=== PATIENT | female | born 1960 | race Caucasian/White ===

== ENCOUNTER 2016-06-25 10:48 | Outpatient (RCR) | payer MEDICARE, MEDICAID ==
--- OUTSIDE RECORDS SUMMARY | 2016-04-02 10:49 | XMS REPORT | Continuity of Care Document ---
Author Author [facility] Organization [facility] Address Unknown Phone Unavailable Care Team Providers Care Parts Lister Name Role Phone Lolly Mcgregor PCP [phone] Source Comments Some departments are not documenting in the electronic medical record. If you do not see the information that you expected, contact Release of Information in the Health Information Management department at [phone] for further assistance in locating additional records.[facility] Active Allergies and Adverse Reactions Allergen Noted Date Severity Reactions Comments Codeine 09/22/2013 NAUSEA AND VOMITING Enalaprilat 09/22/2013 SEE COMMENTS "throat swells up and it's not good" Haldol 09/22/2013 MENTAL STATUS CHANGES Current Medications Prescription Sig. Disp. Refills Start End Date Status Date rosuvastatin (CRESTOR) 10 Take 10 mg by mouth Active mg tablet daily. DOCOSAHEXANOIC ACID/EPA Take 1,200 mg by mouth Active (FISH OIL PO) twice daily. metFORMIN (GLUCOPHAGE) Take 1,000 mg by mouth Active 1,000 mg tablet twice daily with meals. aspirin 325 mg tablet Take 325 mg by mouth Active daily. losartan (COZAAR) 50 mg Take 50 mg by mouth Active tablet daily. metoprolol (LOPRESSOR) 25 Take 25 mg by mouth Active mg tablet daily. VITS Take by mouth. Active W-CA,FE,FA(<1MG) ( VITAMIN PO) INSULIN LISPRO (HUMALOG Inject into area(s) as Active PEN SC) directed. INSULIN DETEMIR (LEVEMIR Inject 34 Units into Active FLEXPEN SC) area(s) as directed at bedtime daily. 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 Social History Tobacco Use Types Packs/Day Years Used Date Current Every Day Smoker Cigarettes 1.5 Smokeless Tobacco: Never Used Comments: Smoking for 30 years Alcohol Use Drinks/Week oz/Week Comments No Last Filed Vital Signs Vital Sign Reading Time Taken Blood Pressure 144/67 09/22/2013 4:04 PM CDT Pulse 77 09/22/2013 4:19 PM CDT Temperature 36.7 C (98.1 F) 09/22/2013 2:30 PM CDT Respiratory Rate - - Height 1.753 m (5' 9") 09/22/2013 10:40 AM CDT Weight 82.6 kg (182 lb 1.6 oz) 09/22/2013 10:40 AM CDT Body Mass Index 26.88 09/22/2013 10:40 AM CDT Oxygen Saturation 97% 09/22/2013 4:19 PM CDT Plan of Care Health Maintenance Due Date Last Done Comments Physical (Comprehensive) 01/03/1967 Exam Pertussis Vaccine 01/03/1971 Tetanus Vaccine 01/03/1977 Cervical Cancer Screening 01/03/1981 Breast Cancer Screening 2000 Colorectal Cancer 01/03/2010 Screening Influenza Vaccine 02/15/2016 Results from Last 3 Months Not on file
[2016-04-02 11:35] LABS: BASOPHILS % (AUTO) 0 % (0-10); EOSINOPHILS # (AUTO) 0.1 10^3/uL (0.0-0.3); EOSINOPHILS % (AUTO) 1 % (0-10); LYMPHOCYTES # (AUTO) 1.4 X 10^3 (1.0-4.0); LYMPHOCYTES % (AUTO) 14 % (12-44); MEAN CORPUSCULAR HEMOGLOBIN 27 PG (25-34); MEAN CORPUSCULAR HGB CONC 32 G/DL (32-36); MEAN CORPUSCULAR VOLUME 86 FL (80-99); MEAN PLATELET VOLUME 9.8 FL (7.4-10.4); MONOCYTES # (AUTO) 0.6 X 10^3 (0.0-1.0); MONOCYTES % (AUTO) 6 % (0-12); NEUTROPHILS # (AUTO) 7.9 X 10^3 (1.8-7.8); NEUTROPHILS % (AUTO) 78 % (42-75); PLATELET COUNT 306 10^3/uL (130-400); RED BLOOD COUNT 4.12 10^6/uL (4.35-5.85); RED CELL DISTRIBUTION WIDTH 15.6 % (10.0-14.5); WHITE BLOOD COUNT 10.2 10^3/uL (4.3-11.0)
[2016-04-02 11:53] LABS: ALANINE AMINOTRANSFERASE 59 U/L (0-55); ANION GAP 9 MMOL/L (5-14); ASPARTATE AMINO TRANSFERASE 52 U/L (5-34); BILIRUBIN,TOTAL 0.5 MG/DL (0.1-1.0); BLOOD UREA NITROGEN 13 MG/DL (7-18); BUN/CREATININE RATIO 16; CALCIUM 9.5 MG/DL (8.5-10.1); CARBON DIOXIDE 25 MMOL/L (21-32); CHLORIDE 108 MMOL/L (98-107); CREATININE SERUM 0.83 MG/DL (0.60-1.30); GFR ESTIMATED > 60; GLUCOSE 171 MG/DL (70-105); POTASSIUM 4.3 MMOL/L (3.6-5.0); SODIUM 142 MMOL/L (135-145); TOTAL PROTEIN 6.7 G/DL (6.4-8.2)
--- NOTE | 2016-04-09 16:09 | Diagnostic Imaging Report ---
EXAMINATION: PA and lateral views of the chest. INDICATION: Head and neck cancer. COMPARISON: 08/19/2014. FINDINGS: The lungs appear clear. The heart size is normal. No effusion or pneumothorax. The mediastinum and parrish appear unremarkable. Sternotomy wires are seen. There is a left subclavian port with the tip at the upper SVC level. IMPRESSION: No acute process. Dictated by: Dictated on workstation # [id number]
[2016-05-16 11:29] LABS: BASOPHILS % (AUTO) 1 % (0-10); EOSINOPHILS # (AUTO) 0.2 10^3/uL (0.0-0.3); EOSINOPHILS % (AUTO) 2 % (0-10); LYMPHOCYTES # (AUTO) 1.6 X 10^3 (1.0-4.0); LYMPHOCYTES % (AUTO) 19 % (12-44); MEAN CORPUSCULAR HEMOGLOBIN 27 PG (25-34); MEAN CORPUSCULAR HGB CONC 32 G/DL (32-36); MEAN CORPUSCULAR VOLUME 84 FL (80-99); MEAN PLATELET VOLUME 9.7 FL (7.4-10.4); MONOCYTES # (AUTO) 0.5 X 10^3 (0.0-1.0); MONOCYTES % (AUTO) 7 % (0-12); NEUTROPHILS # (AUTO) 5.9 X 10^3 (1.8-7.8); NEUTROPHILS % (AUTO) 71 % (42-75); PLATELET COUNT 245 10^3/uL (130-400); RED BLOOD COUNT 4.44 10^6/uL (4.35-5.85); RED CELL DISTRIBUTION WIDTH 15.1 % (10.0-14.5); WHITE BLOOD COUNT 8.3 10^3/uL (4.3-11.0)
[2016-05-16 12:24] LABS: ALBUMIN 4.1 G/DL (3.2-4.5); BILIRUBIN,TOTAL 0.4 MG/DL (0.1-1.0); CALCIUM 9.8 MG/DL (8.5-10.1); CREATININE SERUM 1.02 MG/DL (0.60-1.30); POTASSIUM 4.4 MMOL/L (3.6-5.0)
[~2016-06-25 10:48] MED LIST: ALBU8.5H2 IH; ALPR0.25 PO; AMLO5TAB2 PO; ASP325TEC PO; ASP81CT PO; ASPI-808 PO; CEPH500C PO; FURO40TA4 PO; HYDR-3454 PO; INSU100C SQ; LEVE1U SQ; LEVO25TA PO; LEVO50TA6 PO; LOSA50TA2 PO; LOSA50TA6 PO; LOVA20TA2 PO; LOVA40TA2 PO; METF-380 PO; METO25TA PO; NCT21TD TOP; OMEG-109 PO; OMEG1CAP58 PO; OMEP20TA7 PO; OMEP40CA36 PO; POTA10TA10 PO; ROSU10TA12 PO; ROSU20TA14 PO; SENN1TAB76 PO; SULF1TAB35 PO; TRAM-21 PO
[2016-06-25 11:07] LABS: BASOPHILS % (AUTO) 0 % (0-10); EOSINOPHILS # (AUTO) 0.1 10^3/uL (0.0-0.3); EOSINOPHILS % (AUTO) 1 % (0-10); LYMPHOCYTES # (AUTO) 2.4 X 10^3 (1.0-4.0); LYMPHOCYTES % (AUTO) 21 % (12-44); MEAN CORPUSCULAR HEMOGLOBIN 26 PG (25-34); MEAN CORPUSCULAR HGB CONC 32 G/DL (32-36); MEAN CORPUSCULAR VOLUME 82 FL (80-99); MEAN PLATELET VOLUME 10.1 FL (7.4-10.4); MONOCYTES % (AUTO) 9 % (0-12); NEUTROPHILS # (AUTO) 8.2 X 10^3 (1.8-7.8); NEUTROPHILS % (AUTO) 69 % (42-75); PLATELET COUNT 256 10^3/uL (130-400); RED BLOOD COUNT 4.54 10^6/uL (4.35-5.85); RED CELL DISTRIBUTION WIDTH 15.6 % (10.0-14.5); WHITE BLOOD COUNT 11.8 10^3/uL (4.3-11.0)
[2016-06-25 11:49] LABS: ALBUMIN 4.2 G/DL (3.2-4.5); BILIRUBIN,TOTAL 0.4 MG/DL (0.1-1.0); CALCIUM 9.6 MG/DL (8.5-10.1); CREATININE SERUM 1.08 MG/DL (0.60-1.30); POTASSIUM 4.1 MMOL/L (3.6-5.0); TOTAL PROTEIN 7.1 G/DL (6.4-8.2)
[2016-06-25 12:12] LABS: THYROID STIMULATING HORMONE 3.98 UIU/ML (0.35-4.94)
--- NOTE | 2016-06-25 13:18 | Diagnostic Imaging Report ---
INDICATION: Shortness of breath, history of cancer. COMPARISON: 08/19/2014. FINDINGS: Some volume loss in the left lung and perihilar scarring and postoperative distortion. Sternal wires midline. The right lung is clear. No effusion or pneumothorax. No failure pattern. IMPRESSION: Postoperative changes, otherwise negative. Dictated by: Dictated on workstation # [id number]
== END 2016-07-01 | disposition home or self-care (01) ==
LOC: ONC 10:48
PROVIDERS: ATTEND Internal Medicine Hematology & Oncology
DX: C32.1 Malignant neoplasm of supraglottis (principal); C34.12 Malignant neoplasm of upper lobe, left bronchus or lung; F17.210 Nicotine dependence, cigarettes, uncomplicated; Z92.21 Personal history of antineoplastic chemotherapy; Z92.3 Personal history of irradiation; Z79.899 Other long term (current) drug therapy
CPT/HCPCS: 36591; 70491; 71020; 80053; 84443; 85025; 99213

== ENCOUNTER 2016-07-03 05:36 | Outpatient (CLI) | payer MEDICARE, MEDICAID ==
[~2016-07-03] VITALS: Ht 167.6 cm; Wt 90.9 kg
--- OUTSIDE RECORDS SUMMARY | 2016-07-03 05:39 | XMS REPORT | Continuity of Care Document ---
Author Author [facility] Organization [facility] Address Unknown Phone Unavailable Care Team Providers Care Communication Center Operator Name Role Phone Lolly Mcgregor PCP [phone] Source Comments Some departments are not documenting in the electronic medical record. 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 Most Recent Encounters Date Type Specialty Providers Description 04/23/2016 Telephone Oncology Nidhi Ventura MD Follow-up Phone Call 04/23/2016 Telephone Oncology Nidhi Ventura MD Error 04/11/2016 Ancillary Radiology Outpatient, Radiologist Diagnosis unknown Orders (Primary Dx) 04/05/2016 Hospital Radiology Encounter 04/05/2016 Hospital Radiology Encounter 04/05/2016 Hospital Radiology Encounter 04/02/2016 Hospital Radiology Encounter Social History Tobacco Use Types Packs/Day Years [...] Health Maintenance Due Date Last Done Comments Hepatitis C Screening 1960 Physical (Comprehensive) 01/03/1967 Exam Pertussis Vaccine 01/03/1971 Tetanus Vaccine 01/03/1977 Cervical Cancer Screening 01/03/1981 Breast Cancer Screening 2000 Colorectal Cancer 01/03/2010 Screening Influenza Vaccine 02/15/2016 Results from Last 3 Months NM BONE SCAN EXTERNAL IMAGING (04/05/2016 12:30 AM) Narrative This order has been auto finalized and does not contain a result. GENERAL RAD ABDOMEN EXTERNAL IMAGING (04/05/2016 12:15 AM) Narrative This order has been auto finalized and does not contain a result. CT CHEST EXTERNAL IMAGING (04/05/2016) Narrative This order has been auto finalized and does not contain a result. GENERAL RAD CHEST EXTERNAL IMAGING (04/02/2016) Narrative This order has been auto finalized and does not contain a result.
[2016-07-03] MEDS ORDERED: TIOT4MIS3 IH (09:10)
[2016-07-03] MEDS ORDERED: MONT10TA24 PO (09:10)
== END 2016-07-03 09:24 ==
LOC: PREOP 05:36
PROVIDERS: ATTEND Surgery
DX: Z01.818 Encounter for other preprocedural examination (principal); L72.9 Follicular cyst of the skin and subcutaneous tissue, unspecified

== ENCOUNTER 2016-07-04 10:21 | Day surgery (SDC) | payer MEDICARE, MEDICAID ==
[~2016-07-04] VITALS: Ht 167.6 cm; Wt 90.9 kg
[~2016-07-04 10:21] MED LIST changes: +MONT10TA24 PO; +TIOT4MIS3 IH
--- OUTSIDE RECORDS SUMMARY | 2016-07-04 10:24 | XMS REPORT | Continuity of Care Document ---
Author Author [facility] Organization [facility] Address Unknown Phone Unavailable Care Team Providers Care Auger Mill Operator Name Role Phone Lolly Mcgregor PCP [phone] Source Comments Some departments are not documenting in the electronic medical record. If you do not see the information that you expected, contact Release of Information in the Health Information Management department at [phone] for further assistance in locating additional records.[facility] Active Allergies and Adverse Reactions Allergen [...] Hospital Radiology Encounter 04/05/2016 Hospital Radiology Encounter Social History Tobacco Use [...]
--- OUTSIDE RECORDS SUMMARY | 2016-07-04 10:25 | XMS REPORT | Continuity of Care Document ---
Author Author [facility] Organization [facility] Address Unknown Phone Unavailable Care Team Providers Care Back Hanger Name Role Phone Lolly Mcgregor PCP [phone] Source Comments Some departments are not documenting in the electronic medical record. If you do not see the information that you expected, contact Release of Information in the Health Information Management department at [phone] for further assistance in locating additional records.[facility] Active Allergies and Adverse Reactions Allergen Noted [...]
[2016-07-04] MEDS ORDERED: ceFAZolin 2 GM IV (SDC ONLY) 50 ML ONE (10:30)
[2016-07-04] MEDS ORDERED: ceFAZolin 2 GM/NS 50 ML IVPB IV ONE (10:45)
[2016-07-04] MEDS ORDERED: LACTATED RINGERS 1,000 ML IV PRN (10:54)
[2016-07-04] MEDS ORDERED: SCOPOLAMINE 1.5 MG (TRANSDERM-SCOP) PATCH TOP ONE (11:00)
[2016-07-04] MEDS ORDERED: RT-ALBUTEROL SULF 2.5 MG/3 ML PRE-MIX VIAL INH ONE (11:00)
[2016-07-04] MEDS ORDERED: ONDANSETRON 4 MG/2 ML (SDV) Z0FRAN IV ONE (11:00)
[2016-07-04] MEDS ORDERED: FAMOTIDINE 20MG/2ML IV (PEPCID) IV ONE (11:00)
[2016-07-04] MEDS ORDERED: CATHETER FLUSH 10 ML SYR IV PRN (11:15)
[2016-07-04] MEDS ORDERED: ceFAZolin 2 GM IV (SDC ONLY) 50 ML IV ONE (11:15)
--- NOTE | 2016-07-04 11:28 | Progress Note-Pre Operative ---
Pre-Operative Progress Note H&P Reviewed The H&P was reviewed, patient examined and no changes noted. Date H&P Reviewed: Jul 04, 2016 Time H&P Reviewed: 11:27 Pre-Operative Diagnosis: CYST OF CHEST LILLY LEE DO Jul 04, 2016 11:28
[2016-07-04 11:32] VITALS: BP 140/77
[2016-07-04] MEDS ORDERED: BUPIVACAINE 0.5% 30 ML (SENSORCAINE) VIAL ONE (11:44)
[2016-07-04] MEDS ORDERED: LIDOCAINE 1% INJ 20 ML (XYLOCAINE) VIAL ONE (11:44)
[2016-07-04] MEDS ORDERED: ONDANSETRON 4 MG/2 ML (SDV) Z0FRAN ONE (11:48)
[2016-07-04] MEDS ORDERED: LACTATED RINGERS 1,000 ML IV ONE (11:48)
[2016-07-04] MEDS ORDERED: MIDAZOLAM 10 MG/2 ML (VERSED) VIAL ONE (11:49)
[2016-07-04] MEDS ORDERED: fentaNYL INJECTION 100 MCG/2 ML AMP ONE (11:51)
--- NOTE | 2016-07-04 12:27 | Discharge Inst-Simple/Standard ---
Discharge Inst-Standard Patient Instructions/Follow Up Plan of Care/Instructions/FU: Follow up with Dr. Gregorio in 12 days Keep wound clean and dry Activity as Tolerated: No Discharge Diet: No Restrictions Other Inst to Patient Follow up Appt: Make appointment for 12 days. Instructions: No lifting greater than 10 pounds. No strenuous activity. May shower in 24 hours, no tub bath or soaking. Use incentive spirometer at home as directed. No Smoking Skin/Wound Care: Keep clean and dry. Report any signs of infection. Symptoms to Report: Appetite Changes, Extremity Discoloration, Numbness/Tingling, Swelling Increased , Bleeding Excessive, Eyesight Changes, Pain Increased, Urine Color Change, Constipation(Persistent), Fever over 101 degree F, Pain/Pressure in chest, Urinating Difficulty, Cough Up/Vomit Blood, Heart Beat Irreg/Pounding, Pain/ Pressure in jaw, Vaginal Bleeding Increase, Cramps in feet or legs, Lightheadedness, Pain/Pressure in shoulder, Diarrhea(Persistent), Memory Changes Suddenly, Questions/Concerns, Weight gain consecutive days, Dizziness/ Fainting, Nausea/Vomiting, Shortness of Breath, Weight gain over 2 pounds If questions or concerns contact your physician Or seek help at emergency department. CHASE NUNN APRN Jul 04, 2016 12:27
--- NOTE | 2016-07-04 12:40 | Progress Note-Post Operative ---
Post-Operative Progess Note Pre-Operative Diagnosis CYST OF CHEST Post-Operative Diagnosis same Post-Op Procedure Note Date of Procedure: Jul 04, 2016 Name of Procedure: excision cyst of chest 4 x1.5cm Procedure Note/Findings see note Anesthesia Type mac c local Estimated blood loss (mL): minimal Specimen(s) collected cyst LILLY LEE DO Jul 04, 2016 12:40
[2016-07-04] MEDS ORDERED: ONDANSETRON 4 MG/2 ML (SDV) Z0FRAN IVP PRN (12:45)
[2016-07-04] MEDS ORDERED: MEPERIDINE (DEMEROL) INJ 50 MG/ML IVP PRN (12:45)
[2016-07-04] MEDS ORDERED: morphine INJ 10 MG/ML 1ML (SYR OR VIAL) IVP PRN (12:45)
[2016-07-04] MEDS ORDERED: proPOfol 200 MG/20 ML (DIPRIVAN) VIAL IV ONE (12:47)
[2016-07-04] MEDS ORDERED: PROPOFOL INJECTION 50 ML IV ONE (12:48)
[2016-07-04 13:00] VITALS: BP 132/76
[2016-07-04 13:30] VITALS: BP_SYST 134; BP_DIAS 76; BP_DIAS 78
[2016-07-04 14:00] VITALS: BP 147/87
[2016-07-04 14:05] VITALS: BP 132/76
--- NOTE | 2016-07-05 11:37 | OPERATIVE REPORT ---
PROCEDURE PHYSICIAN: LILLY LEE DATE OF PROCEDURE: 07/04/2016 PREOPERATIVE DIAGNOSIS: Cyst of chest. POSTOPERATIVE DIAGNOSIS: Cyst of chest. PROCEDURE: Excision of cyst of chest 4 x 1.5 cm subcutaneous layer. SURGEON: Darline. ANESTHESIA: MAC with local. COMPLICATIONS: None. INDICATIONS: The patient is a 56-year-old female with a cyst that has gotten larger causing some pain and discomfort. It did have some drainage from it previously. She understands risks and benefits of the procedure and wishes to proceed with procedure. Consent signed on the chart. PROCEDURE: The patient was taken to the operating suite. She was prepped and draped in the sterile fashion. A surgical pause performed. Local anesthetic was infiltrated around the cyst. A number 15 blade scalpel was used to make an incision measuring 4 x 1.5 cm around the cyst using cautery to dissect around it. The subcutaneous tissue removing the cyst in its entirety. Subcutaneous tissues were then mobilized for closure. The wound was then was then irrigated with copious amounts of irrigation. The skin was then closed using 3-0 nylon in a simple interrupted fashion, with vertical mattress sutures. The patient tolerated procedure well without any complications. She was taken to the recovery room in stable condition after washing and drying the area and putting a sterile bandage on. The patient will be given discharge instructions and follow-up. If she has any problems prior to that, she should be reevaluated at that time. Job ID: [id number] Dictated Date: 07/04/2016 12:45:55 Heavy Equipment Mechanic Date: 07/05/2016 11:30:37 / nenita
== END 2016-07-04 14:05 | disposition home or self-care (01) ==
LOC: SDC 10:21
PROVIDERS: ATTEND Surgery
DX: L72.0 Epidermal cyst (principal)
CPT/HCPCS: 82962; 94640; 94760

== ENCOUNTER → 2016-09-17 | Outpatient (CLI) | payer MEDICARE ==
[~2016-09-17] MED LIST changes: +CATHETER FLUSH 10 ML SYR IV PRN; +IOHEXOL 350 MG/ML 100 ML (OMNIPAQUE 350) VIAL IV ONE; +NS 100 ML (IVPB) BAG IV ONE
--- NOTE | 2016-09-17 13:50 | Diagnostic Imaging Report ---
EXAMINATION: CT of the neck and chest with contrast. INDICATION: Lung carcinoma. TECHNIQUE: Contiguous axial sections were taken from the midportion of the skull to the lung apices following administration of intravenous contrast. Subsequent additional images were taken through the thorax. Coronal reconstructed images of the neck and chest were also performed. FINDINGS: The previous CT neck exams of 04/05/2016 and 05/16/2016 have noted a soft tissue density in the region of the glottis and in the supraglottic area. On this exam, those findings are again evident and do not seem to have changed significantly. The stability of this area by CT would suggest that there is not a malignant process present. If further evaluation by imaging is desired however, then PET/CT would be recommended. The prior exam also noted a small lymph node posterior to left submandibular gland as well as prominence of the left submandibular gland when compared to the right. Those findings are again noted as well. The parotid glands are symmetrical. The thyroid gland is generally unremarkable. No other mass or adenopathy involving the neck is identified. The visualized portions of the intracranial contents show no sign of an acute abnormality. The sinuses are generally clear. On the previous exam, there was a band of diminished density at the junction of the right subclavian and right common carotid arteries. That finding is again evident and no different. The images through the thorax again show some thickening of the pleura involving the left hemidiaphragm. This finding is similar to the prior CT chest exam of 04/05/2016. Also as suggested on the prior study, there is volume loss on the left. Both lungs are clear. There is no sign of failure, pneumonia, or pleural effusion. There is no parenchymal lung mass identified. The heart size is stable. Sternotomy wires and surgical clips are again noted. Coronary artery calcifications are also seen. The aorta is not abnormally dilated. There is no defect within the pulmonary arteries to indicate a pulmonary embolus. There is no mediastinal or hilar adenopathy. There is no obvious breast mass. The sections through the upper abdomen fail to show any sign of an acute abnormality. The gallbladder is surgically absent. The bone windows are unremarkable for fracture or for destructive lesion. IMPRESSION: 1. The soft tissue densities involving the glottis and supraglottic region seen previously are again evident and no different. There is no evidence for malignancy in this area. If further study is desired however, then PET/CT would be recommended. 2. The overall appearance of the neck is otherwise stable. No new abnormality has developed. 3. There are postsurgical changes involving the left thorax and there has been a prior cardiac bypass procedure. There is no acute cardiopulmonary abnormality noted and there is no sign of neoplastic disease. Dictated by: Dictated on workstation # [id number]
== END ==
LOC: RAD 10:36
PROVIDERS: ATTEND Nurse Practitioner Adult Health
DX: C32.1 Malignant neoplasm of supraglottis (principal); C34.12 Malignant neoplasm of upper lobe, left bronchus or lung
CPT/HCPCS: 70491; 71260

== ENCOUNTER 2016-09-26 10:56 | Outpatient (RCR) | payer MEDICARE, MEDICAID ==
--- OUTSIDE RECORDS SUMMARY | 2016-08-05 15:34 | XMS REPORT | Continuity of Care Document ---
Author Author [facility] Organization [facility] Address Unknown Phone Unavailable Care Team Providers Care Environmental Protection Officer Name Role Phone Lolly Mgcregor PCP [phone] Source Comments Some departments are not documenting in the electronic medical record. If you do not see the information that you expected, contact Release of Information in the Health Information Management department at [phone] for further assistance in locating additional records.[facility] Active Allergies and Adverse Reactions [...]
[2016-09-17 10:42] LABS: BASOPHILS % (AUTO) 0 % (0-10); EOSINOPHILS # (AUTO) 0.1 10^3/uL (0.0-0.3); EOSINOPHILS % (AUTO) 2 % (0-10); LYMPHOCYTES # (AUTO) 1.5 X 10^3 (1.0-4.0); LYMPHOCYTES % (AUTO) 21 % (12-44); MEAN CORPUSCULAR HEMOGLOBIN 27 PG (25-34); MEAN CORPUSCULAR HGB CONC 32 G/DL (32-36); MEAN CORPUSCULAR VOLUME 84 FL (80-99); MEAN PLATELET VOLUME 10.4 FL (7.4-10.4); MONOCYTES # (AUTO) 0.5 X 10^3 (0.0-1.0); MONOCYTES % (AUTO) 7 % (0-12); NEUTROPHILS % (AUTO) 69 % (42-75); PLATELET COUNT 195 10^3/uL (130-400); RED BLOOD COUNT 4.38 10^6/uL (4.35-5.85); RED CELL DISTRIBUTION WIDTH 16.3 % (10.0-14.5); WHITE BLOOD COUNT 7.2 10^3/uL (4.3-11.0)
[2016-09-17 11:05] LABS: ALBUMIN 3.9 G/DL (3.2-4.5); BILIRUBIN,TOTAL 0.3 MG/DL (0.1-1.0); CALCIUM 9.3 MG/DL (8.5-10.1); CREATININE SERUM 1.01 MG/DL (0.60-1.30); POTASSIUM 4.2 MMOL/L (3.6-5.0); TOTAL PROTEIN 6.6 G/DL (6.4-8.2)
[~2016-09-26 10:56] MED LIST changes: +ALTEPLASE 2 MG (CATHFLO) CANCER CENTER IV ONE; -CATHETER FLUSH 10 ML SYR IV PRN; -IOHEXOL 350 MG/ML 100 ML (OMNIPAQUE 350) VIAL IV ONE; -NS 100 ML (IVPB) BAG IV ONE
== END 2016-11-03 | disposition home or self-care (01) ==
LOC: ONC 10:56
PROVIDERS: ATTEND Internal Medicine Hematology & Oncology
DX: C32.1 Malignant neoplasm of supraglottis (principal); C34.12 Malignant neoplasm of upper lobe, left bronchus or lung; F17.210 Nicotine dependence, cigarettes, uncomplicated; Z92.21 Personal history of antineoplastic chemotherapy; Z92.3 Personal history of irradiation; Z79.899 Other long term (current) drug therapy; Z45.2 Encounter for adjustment and management of vascular access device
CPT/HCPCS: 36415; 36593; 80053; 85025; 96523; 99213

== ENCOUNTER 2017-02-20 13:18 | Outpatient (RCR) | payer MEDICARE ==
[2017-01-09 14:57] LABS: BASOPHILS % (AUTO) 0 % (0-10); EOSINOPHILS # (AUTO) 0.1 10^3/uL (0.0-0.3); EOSINOPHILS % (AUTO) 2 % (0-10); LYMPHOCYTES # (AUTO) 1.7 X 10^3 (1.0-4.0); LYMPHOCYTES % (AUTO) 27 % (12-44); MEAN CORPUSCULAR HEMOGLOBIN 28 PG (25-34); MEAN CORPUSCULAR HGB CONC 32 G/DL (32-36); MEAN CORPUSCULAR VOLUME 85 FL (80-99); MEAN PLATELET VOLUME 9.9 FL (7.4-10.4); MONOCYTES # (AUTO) 0.5 X 10^3 (0.0-1.0); MONOCYTES % (AUTO) 7 % (0-12); NEUTROPHILS # (AUTO) 4.1 X 10^3 (1.8-7.8); NEUTROPHILS % (AUTO) 64 % (42-75); PLATELET COUNT 164 10^3/uL (130-400); RED CELL DISTRIBUTION WIDTH 15.9 % (10.0-14.5); WHITE BLOOD COUNT 6.5 10^3/uL (4.3-11.0)
[2017-01-09 15:32] LABS: CREATININE SERUM 0.97 MG/DL (0.60-1.30); POTASSIUM 4.1 MMOL/L (3.6-5.0)
[2017-01-09 15:33] LABS: ALBUMIN 4.4 GM/DL (3.2-4.5); BILIRUBIN,TOTAL 0.7 MG/DL (0.1-1.0); CALCIUM 9.6 MG/DL (8.5-10.1)
[2017-01-09 15:54] LABS: THYROID STIMULATING HORMONE 3.27 UIU/ML (0.35-4.94)
[~2017-02-20 13:18] MED LIST changes: -ALTEPLASE 2 MG (CATHFLO) CANCER CENTER IV ONE
== END 2017-03-15 | disposition home or self-care (01) ==
LOC: ONC 13:18
PROVIDERS: ATTEND Internal Medicine Hematology & Oncology
DX: C32.1 Malignant neoplasm of supraglottis (principal); C34.12 Malignant neoplasm of upper lobe, left bronchus or lung; F17.210 Nicotine dependence, cigarettes, uncomplicated; Z92.21 Personal history of antineoplastic chemotherapy; Z92.3 Personal history of irradiation; Z79.899 Other long term (current) drug therapy; Z45.2 Encounter for adjustment and management of vascular access device
CPT/HCPCS: 36591; 80053; 84443; 85025; 96523; 99213

== ENCOUNTER → 2017-04-03 | Outpatient (CLI) | payer MEDICARE ==
[~2017-04-03] MED LIST changes: +CATHETER FLUSH 10 ML SYR IV PRN; +IOHEXOL 350 MG/ML 100 ML (OMNIPAQUE 350) VIAL IV ONE; +NS 100 ML (IVPB) BAG IV ONE
--- NOTE | 2017-04-03 14:12 | Diagnostic Imaging Report ---
INDICATION: Lung cancer and epiglottic carcinoma. Surveillance imaging. COMPARISON: 09/17/2016. TECHNIQUE: Postcontrast imaging of the neck and chest was performed. Coronal reformats are created and submitted for interpretation. FINDINGS: CT neck: No change in asymmetric soft tissue thickening in the supraglottic region. Circumferential soft tissue thickening is low attenuation involving the glottis is also unchanged. No new mucosal based process within the pharynx or larynx. No cervical lymphadenopathy. Thyroid is normal. Salivary glands are symmetric. No concerning focal osseous lesions. CT chest: No endoluminal lesion in the trachea or central bronchi. Stable postoperative changes of left upper lobectomy. Hyperaeration of the left lower lobe is noted. No concerning pulmonary mass, nodule or consolidation. No pleural effusion or pneumothorax. No intrathoracic lymphadenopathy. No axillary lymphadenopathy. Heart is mildly enlarged without pericardial effusion. Normal-caliber thoracic aorta. No central pulmonary emboli. Diffuse hepatic steatosis. No concerning focal osseous lesions. IMPRESSION: CT neck: 1. No change in CT neck to indicate disease progression. The soft tissue thickening at the region of the glottis and epiglottis is unchanged and likely due to post treatment scarring. 2. No cervical lymphadenopathy. CT chest: 1. Stable postsurgical changes in the left lung without evidence of disease recurrence. Dictated by: Dictated on workstation # [id number]
== END ==
LOC: RAD 09:42
PROVIDERS: ATTEND Nurse Practitioner Adult Health
DX: C34.12 Malignant neoplasm of upper lobe, left bronchus or lung (principal); C32.1 Malignant neoplasm of supraglottis
CPT/HCPCS: 70491; 71260

== ENCOUNTER 2017-05-21 14:13 | Outpatient (RCR) | payer MEDICARE, OTHER ==
[2017-04-03 09:31] LABS: BASOPHILS % (AUTO) 1 % (0-10); EOSINOPHILS # (AUTO) 0.2 10^3/uL (0.0-0.3); EOSINOPHILS % (AUTO) 3 % (0-10); HEMATOCRIT 39 % (35-52); HEMOGLOBIN 12.5 G/DL (11.5-16.0); LYMPHOCYTES # (AUTO) 1.6 X 10^3 (1.0-4.0); LYMPHOCYTES % (AUTO) 26 % (12-44); MEAN CORPUSCULAR HEMOGLOBIN 28 PG (25-34); MEAN CORPUSCULAR HGB CONC 32 G/DL (32-36); MEAN CORPUSCULAR VOLUME 88 FL (80-99); MEAN PLATELET VOLUME 10.5 FL (7.4-10.4); MONOCYTES # (AUTO) 0.6 X 10^3 (0.0-1.0); MONOCYTES % (AUTO) 9 % (0-12); NEUTROPHILS # (AUTO) 3.7 X 10^3 (1.8-7.8); NEUTROPHILS % (AUTO) 61 % (42-75); PLATELET COUNT 167 10^3/uL (130-400); RED BLOOD COUNT 4.42 10^6/uL (4.35-5.85); RED CELL DISTRIBUTION WIDTH 14.3 % (10.0-14.5)
[2017-04-03 09:59] LABS: ALBUMIN 4.3 GM/DL (3.2-4.5); BILIRUBIN,TOTAL 0.6 MG/DL (0.1-1.0); CALCIUM 9.5 MG/DL (8.5-10.1); CREATININE SERUM 1.11 MG/DL (0.60-1.30); POTASSIUM 4.4 MMOL/L (3.6-5.0); TOTAL PROTEIN 7.2 GM/DL (6.4-8.2)
[~2017-05-21 14:13] MED LIST changes: -CATHETER FLUSH 10 ML SYR IV PRN; -IOHEXOL 350 MG/ML 100 ML (OMNIPAQUE 350) VIAL IV ONE; -NS 100 ML (IVPB) BAG IV ONE
== END 2017-07-02 | disposition home or self-care (01) ==
LOC: ONC 14:13
PROVIDERS: ATTEND Internal Medicine Hematology & Oncology
DX: C32.1 Malignant neoplasm of supraglottis (principal); C34.12 Malignant neoplasm of upper lobe, left bronchus or lung; F17.210 Nicotine dependence, cigarettes, uncomplicated; I25.10 Atherosclerotic heart disease of native coronary artery without angina pectoris; E11.43 Type 2 diabetes mellitus with diabetic autonomic (poly)neuropathy; J43.9 Emphysema, unspecified; I10 Essential (primary) hypertension; E78.5 Hyperlipidemia, unspecified; E83.42 Hypomagnesemia; Z79.899 Other long term (current) drug therapy; Z92.3 Personal history of irradiation; Z92.21 Personal history of antineoplastic chemotherapy
CPT/HCPCS: 36591; 80053; 84443; 85025; 96523; 99213

== ENCOUNTER → 2017-06-06 | Outpatient (CLI) | payer MEDICARE ==
[~2017-06-06] MED LIST changes: +CATHETER FLUSH 10 ML SYR IV PRN; +IOHEXOL 350 MG/ML 100 ML (OMNIPAQUE 350) VIAL IV ONE; +NS 100 ML (IVPB) BAG IV ONE
--- NOTE | 2017-06-06 11:49 | Diagnostic Imaging Report ---
PROCEDURE: CT abdomen and pelvis with contrast. TECHNIQUE: Multiple contiguous axial images were obtained through the abdomen and pelvis after administration of intravenous contrast. INDICATION: Abdominal pain. History of lung cancer. 75 mL of Omnipaque 350 is administered intravenously. COMPARISON: 03/15/2016. FINDINGS: The lung bases appear clear. The liver is fairly homogeneous with no focal mass. There is however diffuse fatty infiltration. Cholecystectomy clips are seen. The spleen is not enlarged. Nonspecific nodularity in the left adrenal gland is seen. The right adrenal gland appears unremarkable. There is minimal peripancreatic stranding, particularly around the body of the pancreas and minimal dilatation of the pancreatic duct with calcifications seen. This is suggestive of pancreatitis with likely acute on top of chronic component. The kidneys have symmetric enhancement and contrast excretion. There is no hydronephrosis. The urinary bladder demonstrates mild wall thickening. The uterus and adnexa appear grossly unremarkable. No significant free fluid or fluid collection in the abdomen or pelvis is seen. The bowel loops have normal caliber with no evidence of obstruction. 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 No paraaortic or iliac lymphadenopathy is seen. The osseous structures demonstrate advanced degenerative changes in the mid and lower lumbar spine. IMPRESSION: Minimal fatty stranding around the pancreas is suggestive of pancreatitis, likely acute on top of chronic. Dictated by: Dictated on workstation # [id number]
== END ==
LOC: RAD 10:19
PROVIDERS: ATTEND Nurse Practitioner Family
DX: R10.10 Upper abdominal pain, unspecified (principal); R74.8 Abnormal levels of other serum enzymes; Z85.118 Personal history of other malignant neoplasm of bronchus and lung; Z85.21 Personal history of malignant neoplasm of larynx; Z90.49 Acquired absence of other specified parts of digestive tract
CPT/HCPCS: 74177

== ENCOUNTER → 2017-06-12 | Outpatient (CLI) | payer MEDICARE ==
[~2017-06-12] MED LIST changes: -CATHETER FLUSH 10 ML SYR IV PRN; -IOHEXOL 350 MG/ML 100 ML (OMNIPAQUE 350) VIAL IV ONE; -NS 100 ML (IVPB) BAG IV ONE
== END ==
LOC: RAD 13:16
PROVIDERS: ATTEND Nurse Practitioner Family
DX: Z12.31 Encounter for screening mammogram for malignant neoplasm of breast (principal)
CPT/HCPCS: 77067

== ENCOUNTER 2017-07-14 12:01 | Inpatient (IN) | payer MEDICARE ==
[~2017-07-14] VITALS: Ht 177.8 cm; Wt 93.1 kg
--- OUTSIDE RECORDS SUMMARY | 2017-07-14 12:54 | XMS REPORT | Clinical Summary ---
Author Author [facility] Organization [facility] Address Unknown Phone Unavailable Care Team Providers Care Detective Supervisor Name Role Phone Nidhi Ventura MD Unavailable Lolly Mcgregor MD PCP Mary Boland MA,CCC-DEVELOPER PROGRAMMER ANALYST Unavailable Unavailable Louise Parrish MA,CCC-DEVELOPER PROGRAMMER ANALYST Unavailable Unavailable Amparo Reyes RN Unavailable Unavailable Source Comments Some departments are not documenting in the electronic medical record. If you do not see the information that you expected, contact Release of Information in the Health Information Management department at [phone] for further assistance in locating additional records.[facility] Allergies Active Allergy Reactions Severity Noted Date Comments Codeine NAUSEA AND VOMITING 09/22/2013 Enalaprilat SEE COMMENTS 09/22/2013 "throat swells up and it's not good" Haloperidol Lactate MENTAL STATUS CHANGES 09/22/2013 Current Medications Prescription Sig. Disp. 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 Family History Medical History Relation Name Comments Cancer-Lung Father Heart Attack Father Cancer Mother Diabetes Mother Relation Name Status Comments Father Mother Social History Tobacco Use Types Packs/Day Years Used Date Current Every Day Smoker Cigarettes 1.5 Smokeless Tobacco: Never Used Comments: Smoking for 30 years Alcohol Use Drinks/Week oz/Week Comments No Sex Assigned at Date Recorded Not on file Last Filed Vital Signs Vital Sign Reading Time Taken Blood Pressure 144/67 09/22/2013 4:04 PM CDT Pulse 77 09/22/2013 4:19 PM CDT Temperature 36.7 C (98.1 F) 09/22/2013 2:30 PM CDT Respiratory Rate - - Oxygen Saturation 97% 09/22/2013 4:19 PM CDT Inhaled Oxygen - - Concentration Weight 82.6 kg (182 lb 1.6 oz) 09/22/2013 10:40 AM CDT Height 175.3 cm (5' 9") 09/22/2013 10:40 AM CDT Body Mass Index 26.89 09/22/2013 10:40 AM CDT Plan of Treatment Health Maintenance Due Date Last Done Comments HEPATITIS C SCREENING 1960 PHYSICAL (COMPREHENSIVE) 01/03/1967 EXAM PERTUSSIS VACCINE 01/03/1971 TETANUS VACCINE 01/03/1977 CERVICAL CANCER SCREENING 01/03/1990 BREAST CANCER SCREENING 2000 COLORECTAL CANCER 01/03/2010 SCREENING INFLUENZA VACCINE 01/14/2017 Results Not on filefrom Last 3 Months
--- OUTSIDE RECORDS SUMMARY | 2017-07-14 12:55 | XMS REPORT ---
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 Problem Mixed hyperlipidemia E78.2 Active Problem Adenomatous polyps D36.9 Active Assessment Anxiety F41.9 Active Problem Anxiety F41.9 Active Assessment Acute pancreatitis, unspecified complication status, unspecified pancreatitis type K85.90 Active Assessment Encounter for immunization Z23 Active Problem History of lung cancer Z85.118 Active Problem CAD (coronary artery disease) I25.10 Active Problem Essential hypertension I10 Active Problem DM neuro manif type II E11.49 Active Problem Type 2 diabetes mellitus with complication E11.8 Active Assessment Acquired hypothyroidism E03.9 Active Assessment Mixed hyperlipidemia E78.2 Active Assessment Adenomatous polyps D36.9 Active Assessment History of lung cancer Z85.118 Active Assessment Essential hypertension I10 Active Assessment Type 2 diabetes mellitus with complication E11.8 Active Assessment 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 Problem Acquired hypothyroidism E03.9 Active Assessment CKD (chronic kidney disease), stage 2 (mild) N18.2 Active Problem 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 Medications Medication Code System Code Instructions Start Date End Date Status Dosage Blood Glucose Test [facility] 0 1 Pack subcutaneously 2 times a day Glucocard Expression Lovastatin [facility] 41308411825 40 MG Orally Once a day 1 tablet with a meal Lovastatin [facility] [address]-35 20 mg Orally Once a day 1 tablet with a meal Stiolto Respimat [facility] [address]-75 2.5-2.5 MCG/ACT Inhalation Once a day 2 puffs Nystatin [facility] [address]-71 231112 UNIT/ML Mouth/Throat Four times a day Mar 27, 2016 Apr 26, 2016 4 ml Lasix [facility] [address]-43 40 MG Orally PRN 1 tablet Levemir [facility] [address]-66 100 UNIT/ML sq am and evening 22 units Losartan Potassium [facility] [address]-31 50 mg 2 times a day 1 tablet Metformin HCl [facility] 90856751884 1000 MG Orally Twice a day 1 tablet with meals Montelukast Sodium [facility] [address]-83 10 MG Orally Once a day 1 tablet in the evening BD Insulin Syringe [facility] 8290-642942 31G X 10/29 as directed Aspirin [facility] [address]-05 325 mg Mar 29, 2014 take 1 tablet (325 mg) by oral route once daily Xanax [facility] [address]-02 0.25 MG oraly daily prn 1 tablet Levothyroxine Sodium [facility] [address]-86 25 MCG Orally Once a day 1 tablet Potassium Bicarb-Citric Acid [facility] [address]-92 10 MEQ Orally PRN 1 tablet Zofran [facility] [address]-15 4 MG Orally once a day prn Mar 27, 2016 1 tablet Lovaza [facility] [address]-17 1 gram 1 capsule by Oral route 2 times per day Norvasc [facility] [address]-96 5 MG Orally Once a day 1 tablet Omeprazole [facility] [address]-67 20 mg Orally Once a day Jul 11, 2014 1 capsule Humalog KwikPen [facility] [address]-23 100 unit/mL 8 Units by Subcutaneous route 3 times per day with meals Toprol XL [facility] [address]-49 25 MG TAKE ONE TABLET BY MOUTH DAILY Procedures Procedure Coding System Code Date [facility] CPT-4 NOBLL Mar 27, 2016 FLUARIX QUAD P-FREE 3 AND UP .50 2015 CPT-4 96570 Mar 27, 2016 GLYCATED HEMOGLOBIN TEST CPT-4 66794 Mar 27, 2016 VENIPUNCT, ROUTINE* CPT-4 71843 Mar 27, 2016 SINGLE IMMUNIZATION ADMIN CPT-4 24772 Mar 27, 2016 Office Visit, Est Pt., Level 5 CPT-4 86377 Mar 27, 2016 [facility] VISIT ESTABLISHED PATIENT CPT-4 G0467 Mar 27, 2016 Vital Signs Date/Time: Mar 27, 2016 Cardiac Monitoring Heart Rate 98 bpm Weight 198.4 lbs Height 70 in BMI 28.46 Index Blood Pressure Diastolic 98 mmHg Blood Pressure Systolic 188 mmHg Results No Known Results Immunizations Vaccine Administration Date FLUARIX QUAD P-FREE 3 AND UP .50 2015Mar 27, 2016 Summary Purpose eClinicalWorks Submission
--- OUTSIDE RECORDS SUMMARY | 2017-07-14 12:56 | XMS REPORT ---
Author Author ROBERTO CLANCY [facility] eClinicalWorks Address Unknown Phone Unavailable Care Team Providers Care Mounter Name Role Phone ROBERTO CLANCY CP Unavailable Allergies, Adverse Reactions, Alerts Substance Reaction Event Type Vasotec anaphylaxis Drug Allergy Codeine nausea and vomiting Drug Allergy Problems Problem Type Condition Code Onset Dates Condition Status Assessment Anxiety F41.9 Active Problem Acquired hypothyroidism E03.9 Active Assessment Type 2 diabetes mellitus with complication E11.8 Active Problem CAD (coronary artery disease) I25.10 Active Problem Essential hypertension I10 Active Problem Type 2 diabetes mellitus with complication E11.8 Active Problem CKD (chronic kidney disease), stage 2 (mild) N18.2 Active Problem shelter current use of insulin Z79.4 Active Problem 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 Problem Mixed hyperlipidemia E78.2 Active Medications Medication Code System Code Instructions Start Date End Date Status Dosage Toprol XL [facility] [address]-69 25 MG TAKE ONE TABLET BY MOUTH DAILY Levemir [facility] [address]-65 100 unit/mL Apr 21, 2014 inject 34 Units 1 time per day at bedtime Xanax [facility] [address]-93 0.25 mg Mar 29, 2014 take 1 tablet by Oral route PRN Lovaza [facility] [address]-35 1 gram Apr 21, 2014 1 capsule by Oral route 2 times per day Metformin HCl [facility] 76620211763 1000 MG Orally Twice a day 1 tablet with meals Levothyroxine Sodium [facility] [address]-28 25 MCG Orally Once a day 1 tablet Humalog KwikPen [facility] [address]-41 100 unit/mL Apr 21, 2014 8 Units by Subcutaneous route 3 times per day with meals Potassium Bicarb-Citric Acid [facility] [address]-91 10 MEQ Orally PRN 1 tablet Oxycodone HCl [facility] [address]-42 5 MG Orally every 6 hrs 1 tablet Aspirin [facility] [address]-97 325 mg Mar 29, 2014 take 1 tablet (325 mg) by oral route once daily Lasix [facility] [address]-90 40 MG Orally PRN 1 tablet Lovastatin [facility] [address]-88 20 MG Orally Once a day December 21, 2014 1 tablet with a meal losartan [facility] 0 50 mg orally 2 times a day- 1 in a.m. and 1/2 in p.m. Jun 1 tablet Norvasc [facility] [address]-31 5 MG Orally Once a day November 03, 2014 1 tablet Omeprazole [facility] [address]-96 20 MG Jul 11, 2014 1 capsule Insulin Syringe NDC 0 30G X 1/2 Sub twice a day- Dx- 250.00 1 Blood Glucose Test [place] 0 Mar 29, 2014 [employer] Procedures Procedure Coding System Code Date Office Visit, Est Pt., Level 4 CPT-4 37903 May 23, 2015 GLYCATED HEMOGLOBIN TEST CPT-4 23861 May 23, 2015 Vital Signs Date/Time: May 23, 2015 Temperature 98.6 F Weight 202.1 lbs Height 70 in BMI 29.00 Index Blood Pressure Diastolic 76 mmHg Blood Pressure Systolic 124 mmHg Cardiac Monitoring Heart Rate 74 bpm Results Name Result Date Reference Range Unit Abnormality Flag A1C (IN HOUSE) ----A1C IN HOUSE 7.2 [id number] 4.30 - 5.6 % ----Lot # [id number] ----Exp date [id number] Summary Purpose eClinicalWorks Submission
--- OUTSIDE RECORDS SUMMARY | 2017-07-14 12:56 | XMS REPORT ---
Author Author PAWEL PAULSON Organization eClinicalWorks Address Unknown Phone Unavailable Care Team Providers Care Cardiology Associate Name Role Phone PAWEL PAULSON CP Unavailable Allergies No Known Allergies Problems Problem Type Condition Code Onset Dates Condition Status Assessment Cellulitis of foot L03.119 Active Problem assisted current use of insulin Z79.4 Active Problem Acquired hypothyroidism E03.9 Active Assessment Onychomycosis B35.1 Active Problem Type 2 diabetes mellitus with complication E11.8 Active Problem CAD (coronary artery disease) I25.10 Active Problem DM neuro manif type II E11.49 Active Problem Mixed hyperlipidemia E78.2 Active Problem CKD (chronic kidney disease), stage 2 (mild) N18.2 Active Problem Essential hypertension I10 Active Problem 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 Medications No Known Medications Procedures Procedure Coding System Code Date Office Visit, Est Pt., Level 3 CPT-4 95860 September 22, 2015 Vital Signs Date/Time: September 22, 2015 Blood Pressure Diastolic 83 mmHg Blood Pressure Systolic 149 mmHg Height 70 in Results No Known Results Summary Purpose eClinicalWorks Submission
--- OUTSIDE RECORDS SUMMARY | 2017-07-14 12:56 | XMS REPORT ---
Author Author ROBERTO CLANCY Organization [facility] Address [address] [place] [address] Care Team Providers Care Autobody Technician Name Role Phone ROBERTO CLANCY Unavailable PROBLEMS Type Condition ICD9-CM Code [id number] Code Onset Dates Condition Status SNOMED Code Problem Type 2 diabetes mellitus with complication E11.8 Active 33982717 Problem Acquired hypothyroidism E03.9 Active 752184488 Problem Essential hypertension I10 Active 12583489 Problem jail current use of insulin Z79.4 Active 349071382 Problem Mixed hyperlipidemia E78.2 Active 592824647 Problem CKD (chronic kidney disease), stage 2 (mild) N18.2 Active 011925430 Problem 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 918895163 Problem Diabetic polyneuropathy associated with type 2 diabetes mellitus E11.42 Active 71789238 Problem Anxiety F41.9 Active 30278742 Problem DM neuro manif type II E11.49 Active 80530437 Problem CAD (coronary artery disease) I25.10 Active 56966233 Problem History of lung cancer Z85.118 Active 298382997 Problem Adenomatous polyps D36.9 Active 41100424 ALLERGIES Unknown Allergies SOCIAL HISTORY No smoking Hx information available PLAN OF CARE VITAL SIGNS MEDICATIONS Unknown Medications RESULTS No Results PROCEDURES No Known procedures IMMUNIZATIONS No Known Immunizations
--- OUTSIDE RECORDS SUMMARY | 2017-07-14 12:57 | XMS REPORT ---
Author Author ROBERTO CLANCY Organization [facility] Address [address] [place] [address] Care Team Providers Care Print Decorator Name Role Phone ROBERTO CLANCY Unavailable PROBLEMS Type Condition ICD9-CM Code [id number] Code Onset Dates Condition Status SNOMED Code Problem Type 2 diabetes mellitus with complication E11.8 Active 62912301 Problem Acquired hypothyroidism E03.9 Active 840602510 Problem Essential hypertension I10 Active 34713454 Problem retirement current use of insulin Z79.4 Active 025195637 Problem Mixed hyperlipidemia E78.2 Active 554330414 Problem CKD (chronic kidney disease), stage 2 (mild) N18.2 Active 954199296 Problem 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 247448894 Problem Diabetic polyneuropathy associated with type 2 diabetes mellitus E11.42 Active 29844043 Problem Anxiety F41.9 Active 77859861 Problem DM neuro manif type II E11.49 Active 48874574 Problem CAD (coronary artery disease) I25.10 Active 52359281 Problem History of lung cancer Z85.118 Active 303677342 Problem Adenomatous polyps D36.9 Active 15410710 ALLERGIES No Information SOCIAL HISTORY Never Assessed PLAN OF CARE VITAL SIGNS MEDICATIONS Medication Instructions Dosage Frequency Start Date End Date Duration Status Xanax 0.25 MG oraly daily prn 1 tablet Active RESULTS No Results PROCEDURES No Known procedures IMMUNIZATIONS No Known Immunizations MEDICAL (GENERAL) HISTORY Type Description Date Medical History coronary artery disease, 1st [place] age 33 Medical History hypertension Medical History hyperlipidemia Medical History type II diabetes Medical History anxiety Medical History throat cancer Medical History pancreatitis Medical History hx of meth, THC abuse Surgical History coronary artery bypass graft x4 2012 Surgical History infusaport placement in left chest wall 2013 Surgical History feeding tube placed 2013 Surgical History stents placed in pancreas 2010 Surgical History throat biopsy 2014 Surgical History removal of part of left lung and removal of lymph node 2015 Hospitalization History pancreatitis 2008, 2010 Hospitalization History [facility] -pancreatitis x9 days 2016
--- OUTSIDE RECORDS SUMMARY | 2017-07-14 12:58 | XMS REPORT ---
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
--- OUTSIDE RECORDS SUMMARY | 2017-07-14 12:58 | XMS REPORT ---
Author Author ROBERTO CLANCY [facility] eClinicalWorks Address Unknown Phone Unavailable Care Team Providers Care Material Handler 2Nd Shift Name Role Phone ROBERTO CLANCY CP Unavailable [...] Anxiety F41.9 Active Problem Anxiety F41.9 Active Problem History of lung cancer Z85.118 [...] disease), stage 2 (mild) N18.2 Active Problem oil heaterman current use of insulin Z79.4 Active Medications Medication Code System Code Instructions Start Date End Date Status Dosage Lasix [facility] [address]-38 40 MG Orally PRN 1 tablet Norvasc [facility] [address]-16 5 MG Orally Once a day November 03, 2014 1 tablet Blood Glucose Test [facility] 0 Mar 29, 2014 [employer]Track Levemir [facility] [address]-26 100 UNIT/ML sq am and evening Apr 21, 2014 20 units Humalog KwikPen [facility] [address]-45 100 unit/mL Apr 21, 2014 8 Units by Subcutaneous route 3 times per day with meals Toprol XL [facility] [address]-09 25 MG TAKE ONE TABLET BY MOUTH DAILY Xanax [facility] [address]-56 0.25 mg oraly prn Mar 29, 2014 1 tablet BD Insulin Syringe [facility] 8290-107133 31G X 10/29August 21, 2015 as directed Lovastatin [facility] [address]-49 20 mg Orally Once a day December 21, 2014 1 tablet with a meal Levothyroxine Sodium [facility] [address]-17 25 MCG Orally Once a day 1 tablet Omeprazole [facility] [address]-48 20 MG Jul 11, 2014 1 capsule Metformin HCl [facility] 37949778237 1000 MG Orally Twice a day 1 tablet with meals Lovaza [facility] [address]-78 1 gram Apr 21, 2014 1 capsule by Oral route 2 times per day Aspirin [facility] [address]-31 325 mg Mar 29, 2014 take 1 tablet (325 mg) by oral route once daily Magnesium [facility] [address]9910 200 mg Mar 29, 2014 1 Tablet by Oral route 2 times per day Procedures Procedure Coding System Code Date [facility] NOBLL October 05, 2015 Office Visit, Est Pt., Level 4 CPT-4 53071 October 05, 2015 GLYCATED HEMOGLOBIN TEST CPT-4 67297 October 05, 2015 VENIPUNCT, ROUTINE* CPT-4 05755 October 05, 2015 Vital Signs Date/Time: October 05, 2015 Temperature 97.8 F Weight 207.4 lbs Height 70 in BMI 29.76 Index Blood Pressure Diastolic 78 mmHg Blood Pressure Systolic 128 mmHg Cardiac Monitoring Heart Rate 72 bpm Results Name Result Date Reference Range Unit Abnormality Flag A1C (IN HOUSE) ----A1C IN HOUSE 8.2 20151005 4.3 - 5.6 % ----Previous A1c 7.2 20151005 ----Lot [id number] ----Exp date [id number] ROUTINE VENIPUNCTURE Summary Purpose eClinicalWorks Submission
--- OUTSIDE RECORDS SUMMARY | 2017-07-14 12:59 | XMS REPORT ---
Author Author ROBERTO CLANCY Organization [facility] Address [address] [place] [address] Care Team Providers Care Printer Slotter Operator Name Role Phone ROBERTO CLANCY Unavailable PROBLEMS Type Condition ICD9-CM Code [id number] Code Onset Dates Condition Status SNOMED Code Problem Type 2 diabetes mellitus with complication E11.8 Active 60528837 Problem Acquired hypothyroidism E03.9 Active 165849442 Problem Essential hypertension I10 Active 35323062 Problem retirement current use of insulin Z79.4 Active 810389275 Problem Mixed hyperlipidemia E78.2 Active 886452176 Problem CKD (chronic kidney disease), stage 2 (mild) N18.2 Active 879710840 Problem 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 050133107 Problem Diabetic polyneuropathy associated with type 2 diabetes mellitus E11.42 Active 67910816 Problem Anxiety F41.9 Active 43299409 Problem DM neuro manif type II E11.49 Active 06378400 Problem CAD (coronary artery disease) I25.10 Active 00210472 Problem History of lung cancer Z85.118 Active 041287777 Problem Adenomatous polyps D36.9 Active 71813316 ALLERGIES No Information SOCIAL HISTORY Never Assessed PLAN OF CARE VITAL SIGNS MEDICATIONS Unknown Medications RESULTS No Results PROCEDURES No Known procedures IMMUNIZATIONS No Known Immunizations MEDICAL (GENERAL) HISTORY Type Description Date Medical History coronary artery disease, 1st [place] age 33 Medical History hypertension Medical History hyperlipidemia Medical History type II diabetes Medical History anxiety Medical History throat cancer Medical History pancreatitis Medical History hx of meth, THC abuse Surgical History coronary artery bypass graft x4 2012 Surgical History infusaport placement in left chest wall 2013 Surgical History feeding tube placed 2013 Surgical History stents placed in pancreas 2011 Surgical History throat biopsy 2014 Surgical History removal of part of left lung and removal of lymph node 2015 Hospitalization History pancreatitis 2009, 2011 Hospitalization History [facility] -pancreatitis x9 days 2016
--- OUTSIDE RECORDS SUMMARY | 2017-07-14 12:59 | XMS REPORT ---
Author Author ROBERTO CLANCY [facility] eClinicalWorks Address Unknown Phone Unavailable Care Team Providers Care Field Pipe Lines Supervisor Name Role Phone ROBERTO CLANCY CP Unavailable Allergies No Known Allergies Problems Problem Type Condition Code Onset Dates Condition Status Problem CKD (chronic kidney disease), stage 2 (mild) N18.2 Active Problem 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 Problem Mixed hyperlipidemia E78.2 Active Problem Adenomatous polyps D36.9 Active Problem Anxiety F41.9 Active Problem History of lung cancer Z85.118 Active Problem CAD (coronary artery disease) I25.10 Active Problem Essential hypertension I10 Active Problem DM neuro manif type II E11.49 Active Problem Type 2 diabetes mellitus with complication E11.8 Active Assessment Acquired hypothyroidism E03.9 Active Problem Acquired hypothyroidism E03.9 Active Problem [facility] current use of insulin Z79.4 Active Medications Medication Code System Code Instructions Start Date End Date Status Dosage Levothyroxine Sodium [facility] [address]-80 50 MCG Orally Once a day 1 tablet Results No Known Results Summary Purpose eClinicalWorks Submission
--- OUTSIDE RECORDS SUMMARY | 2017-07-14 12:59 | XMS REPORT ---
Author Author PAWEL PAULSON Organization eClinicalWorks Address Unknown Phone Unavailable Care Team Providers Care Music Researcher Name Role Phone PAWEL PAULSON CP Unavailable Allergies No Known Allergies Problems Problem Type Condition ICD-9 Code Onset Dates Condition Status Assessment Onychomycosis 110.1 Active Problem Acute sinusitis, unspecified 461.9 Active Assessment Plantar fasciitis 728.71 Active Assessment Neuropathy 355.9 Active Problem Diabetes mellitus without mention of complication, type II or unspecified type, not stated as uncontrolled 250.00 Active Problem Coronary atherosclerosis of unspecified type of vessel, [place] or graft 414.00 Active Problem Essential hypertension, benign 401.1 Active Problem Other and unspecified hyperlipidemia 272.4 Active Problem Unspecified conjunctivitis 372.30 Active Problem Chronic kidney disease, unspecified 585.9 Active Problem Malignant neoplasm of larynx, unspecified site 161.9 Active Medications No Known Medications Procedures Procedure Coding System Code Date FOOT ARCH SUPP PREMOLD [id number] EA CPT-4 L3040 Feb 24, 2015 Office Visit, Est Pt., Level 3 CPT-4 55612 Feb 24, 2015 DEBRIDE NAIL, 6 OR MORE CPT-4 75654 Feb 24, 2015 Vital Signs Date/Time: Feb 24, 2015 Blood Pressure Diastolic 80 mmHg Blood Pressure Systolic 122 mmHg Height 70 in Results Name Result Date Reference Range Unit Abnormality Flag DEBRIDE NAIL >6 Summary Purpose eClinicalWorks Submission
[2017-07-14 13:00] VITALS: BP 112/61
--- OUTSIDE RECORDS SUMMARY | 2017-07-14 13:00 | XMS REPORT ---
Author Author ROBERTO CLANCY [facility] eClinicalWorks Address Unknown Phone Unavailable Care Team Providers Care Inside Account Executive Name Role Phone ROBERTO CLANCY Unavailable Allergies, Adverse Reactions, Alerts Substance Reaction Event Type Vasotec anaphylaxis Drug Allergy Codeine nausea and vomiting Drug Allergy Problems Problem Type Condition Code Onset Dates Condition Status Problem Acquired hypothyroidism E03.9 Active Assessment Upper respiratory infection J06.9 Active Problem CAD (coronary artery disease) I25.10 Active Problem Essential hypertension I10 Active Problem Type 2 diabetes mellitus with complication E11.8 Active Problem CKD (chronic kidney disease), stage 2 (mild) N18.2 Active Problem intermediate frame tender current use of insulin Z79.4 Active Problem 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 Problem Mixed hyperlipidemia E78.2 Active Medications Medication Code System Code Instructions Start Date End Date Status Dosage Omeprazole [facility] [address]-61 20 MG Jul 11, 2014 1 capsule losartan ND 0 50 mg orally 2 times a day- 1 in a.m. and 1/2 in p.m. Jun 1 tablet Levothyroxine Sodium [facility] [address]-24 25 MCG Orally Once a day 1 tablet Norvasc [facility] [address]-68 5 MG Orally Once a day November 03, 2014 1 tablet Azithromycin [facility] [address]-13 250 MG Orally Once a day Jun 27, 2015 Jul 04, 2015 2 tabs day one then 1 daily x 6 days Oxycodone HCl [facility] [address]-84 5 MG Orally every 6 hrs 1 tablet Lovastatin [facility] [address]-45 20 MG Orally Once a day December 21, 2014 1 tablet with a meal Lasix [facility] [address]-49 40 MG Orally PRN 1 tablet Potassium Bicarb-Citric Acid [facility] [address]-96 10 MEQ Orally PRN 1 tablet Blood Glucose Test ND 0 Mar 29, 2014 TrueTrack Aspirin [facility] [address]-58 325 mg Mar 29, 2014 take 1 tablet (325 mg) by oral route once daily Metformin HCl [facility] 85619224121 1000 MG Orally Twice a day 1 tablet with meals Xanax [facility] [address]-65 0.25 mg Mar 29, 2014 take 1 tablet by Oral route PRN Humalog KwikPen [facility] [address]-77 100 unit/mL Apr 21, 2014 8 Units by Subcutaneous route 3 times per day with meals Lovaza [facility] [address]-79 1 gram Apr 21, 2014 1 capsule by Oral route 2 times per day Toprol XL [facility] [address]-33 25 MG TAKE ONE TABLET BY MOUTH DAILY Insulin Syringe ND 0 30G X 1/2 Sub twice a day- Dx- 250.00 1 Levemir [facility] [address]-47 100 unit/mL Apr 21, 2014 inject 34 Units 1 time per day at bedtime Procedures Procedure Coding System Code Date Office Visit, Est Pt., Level 3 CPT-4 72963 Jun 27, 2015 Vital Signs Date/Time: Jun 27, 2015 Temperature 97.8 F Weight 207.5 lbs Height 70 in BMI 29.77 Index Blood Pressure Diastolic 78 mmHg Blood Pressure Systolic 118 mmHg Cardiac Monitoring Heart Rate 68 bpm Results No Known Results Summary Purpose eClinicalWorks Submission
--- OUTSIDE RECORDS SUMMARY | 2017-07-14 13:00 | XMS REPORT ---
Author Author ROBERTO CLANCY [facility] eClinicalWorks Address Unknown Phone Unavailable Care Team Providers Care Pot Maker Name Role Phone ROBERTO CLANCY Unavailable Allergies, Adverse Reactions, Alerts Substance Reaction Event Type Vasotec anaphylaxis Drug Allergy Codeine nausea and vomiting Drug Allergy Problems Problem Type Condition Code Onset Dates Condition Status Assessment CAD (coronary artery disease) I25.10 Active Problem Acquired hypothyroidism E03.9 Active Assessment Type 2 diabetes mellitus with complication E11.8 Active Problem CAD (coronary artery disease) I25.10 Active Problem Essential hypertension I10 Active Problem Type 2 diabetes mellitus with complication E11.8 Active Problem CKD (chronic kidney disease), stage 2 (mild) N18.2 Active Problem [facility] current use of insulin Z79.4 Active Problem 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 Problem Mixed hyperlipidemia E78.2 Active Assessment CKD (chronic kidney disease), stage 2 (mild) N18.2 Active Assessment Mixed hyperlipidemia E78.2 Active Assessment Acquired hypothyroidism E03.9 Active Assessment 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 Assessment [facility] current use of insulin Z79.4 Active Assessment Essential hypertension I10 Active Medications Medication Code System Code Instructions Start Date End Date Status Dosage Toprol XL [facility] [address]-07 25 MG TAKE ONE TABLET BY MOUTH DAILY Insulin Syringe NDC 0 30G X 1/2 Sub twice a day- Dx- 250.00 1 Metformin HCl [facility] 90994913649 1000 MG Orally Twice a day 1 tablet with meals Lasix [facility] [address]-91 40 MG Orally PRN 1 tablet Levemir [facility] [address]-50 100 unit/mL Apr 21, 2014 inject 34 Units 1 time per day at bedtime Lovastatin [facility] [address]-63 20 MG Orally Once a day December 21, 2014 1 tablet with a meal Levothyroxine Sodium [facility] [address]-69 25 MCG Orally Once a day 1 tablet Oxycodone HCl [facility] [address]-71 5 MG Orally every 6 hrs 1 tablet Aspirin [facility] [address]-36 325 mg Mar 29, 2014 take 1 tablet (325 mg) by oral route once daily Potassium Bicarb-Citric Acid [facility] [address]-13 10 MEQ Orally PRN 1 tablet Norvasc [facility] [address]-58 5 MG Orally Once a day November 03, 2014 1 tablet Blood Glucose Test ND 0 Mar 29, 2014 TrueTrack losartan ND 0 50 mg orally 2 times a day- 1 in a.m. and 1/2 in p.m. Jun 1 tablet Humalog KwikPen [facility] [address]-58 100 unit/mL Apr 21, 2014 8 Units by Subcutaneous route 3 times per day with meals Lovaza [facility] [address]-28 1 gram Apr 21, 2014 1 capsule by Oral route 2 times per day Omeprazole [facility] [address]-79 20 MG Jul 11, 2014 1 capsule Xanax [facility] [address]-66 0.25 mg Mar 29, 2014 take 1 tablet by Oral route PRN Procedures Procedure Coding System Code Date Office Visit, Est Pt., Level 4 CPT-4 15936 Mar 28, 2015 Vital Signs Date/Time: Mar 28, 2015 Temperature 97.4 F Weight 463.85 lbs Height 70 in BMI 66.55 Index Blood Pressure Diastolic 80 mmHg Blood Pressure Systolic 132 mmHg Cardiac Monitoring Heart Rate 72 bpm Results No Known Results Summary Purpose eClinicalWorks Submission
--- OUTSIDE RECORDS SUMMARY | 2017-07-14 13:03 | XMS REPORT ---
Author Author ROBERTO CLANCY [facility] eClinicalWorks Address Unknown Phone Unavailable Care Team Providers Care Racking Machine Operator Name Role Phone ROBERTO CLANCY CP Unavailable [...] diabetes mellitus with complication E11.8 Active Assessment Encounter for immunization Z23 Active Problem Acquired hypothyroidism E03.9 Active Problem termination clerk current use of insulin Z79.4 Active Medications No Known Medications Procedures Procedure Coding System Code Date SINGLE IMMUNIZATION ADMIN CPT-4 89770 Apr 22, 2016 TDAP (BOOSTRIX) CPT-4 05235 Apr 22, 2016 Results No Known Results Immunizations Vaccine Administration Date TDAP (BOOSTRIX) Apr 22, 2016 Summary Purpose eClinicalWorks Submission
--- OUTSIDE RECORDS SUMMARY | 2017-07-14 13:03 | XMS REPORT ---
Author Author ROBERTO CLANCY Organization eClinicalWorks Address Unknown Phone Unavailable Care Team Providers Care Editor Magazine Name Role Phone ROBERTO CLANCY CP Unavailable Allergies No Known Allergies Problems Problem Type Condition Code Onset Dates Condition Status Problem Acute sinusitis, unspecified 461.9 Active Problem Diabetes mellitus without mention of complication, type II or unspecified type, not stated as uncontrolled 250.00 Active Problem Coronary atherosclerosis of unspecified type of vessel, [place] or graft 414.00 Active Problem Essential hypertension, benign 401.1 Active Problem Other and unspecified hyperlipidemia 272.4 Active Problem Unspecified conjunctivitis 372.30 Active Problem Chronic kidney disease, unspecified 585.9 Active Problem Malignant neoplasm of larynx, unspecified site 161.9 Active Medications Medication Code System Code Instructions Start Date End Date Status Dosage Lovastatin [facility] [address]-92 20 MG Orally Once a day December 21, 2014 1 tablet with a meal losartan NDC 0 50 mg orally 2 times a day- 1 in a.m. and 1/2 in p.m. Jun 1 tablet Toprol XL [facility] [address]-83 25 MG TAKE ONE TABLET BY MOUTH DAILY Omeprazole [facility] [address]-51 20 MG Jul 11, 2014 1 capsule Results No Known Results Summary Purpose eClinicalWorks Submission
--- OUTSIDE RECORDS SUMMARY | 2017-07-14 13:06 | XMS REPORT ---
Author Author ROBERTO CLANCY Organization eClinicalWorks Address Unknown Phone Unavailable Care Team Providers Care Sports Announcer Name Role Phone ROBERTO CLANCY CP Unavailable Allergies No Known Allergies Problems Problem Type Condition Code Onset Dates Condition Status Problem CKD (chronic kidney disease), stage 2 (mild) N18.2 Active Problem 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 Problem Mixed hyperlipidemia E78.2 Active Problem Acquired hypothyroidism E03.9 Active Problem shelter current use of insulin Z79.4 Active Problem Adenomatous polyps D36.9 Active Problem Anxiety F41.9 Active Problem History of lung cancer Z85.118 Active Problem CAD (coronary artery disease) I25.10 Active Problem Essential hypertension I10 Active Problem DM neuro manif type II E11.49 Active Problem Type 2 diabetes mellitus with complication E11.8 Active Medications Medication Code System Code Instructions Start Date End Date Status Dosage Pen [place] [facility] 8396-874501 31G X 6 MM subcutaneously 3 times a day Mar as directed Levemir [facility] [address]-90 100 UNIT/ML Subcutaneous 2 times a day 22 units Pen [place] [facility] 8327-740517 32G X 4 MM subcutaneously 2 times a day Mar as directed Humalog KwikPen [facility] [address]-34 100 UNIT/ML Subcutaneous 3 times a day 8 Units Results No Known Results Summary Purpose eClinicalWorks Submission
--- OUTSIDE RECORDS SUMMARY | 2017-07-14 13:07 | XMS REPORT ---
Author Author ROBERTO CLANCY [facility] eClinicalWorks Address Unknown Phone Unavailable Care Team Providers Care Lien Searcher Name Role Phone ROBERTO CLANCY CP Unavailable [...] Active Problem Acquired hypothyroidism E03.9 Active Problem [facility] current use of insulin Z79.4 Active Medications Medication Code System Code Instructions Start Date End Date Status Dosage Levothyroxine Sodium [facility] [place] [address]-04 50 MCG Orally Once a day 1 tablet Lovastatin [facility] [place] [address]-75 40 MG Orally Once a day December 21, 2014 1 tablet with a meal Results No Known Results Summary Purpose eClinicalWorks Submission
--- OUTSIDE RECORDS SUMMARY | 2017-07-14 13:13 | XMS REPORT ---
Author Author ROBERTO CLANCY Organization [facility] Address [address] [place] [address] Care Team Providers Care Burn Nurse Name Role Phone ROBERTO CLANCY Unavailable PROBLEMS Type Condition ICD9-CM Code [id number] Code Onset Dates Condition Status SNOMED Code Problem Type 2 diabetes mellitus with complication E11.8 Active 45360273 Problem Acquired hypothyroidism E03.9 Active 251762333 Problem Essential hypertension I10 Active 66301496 Problem custodial current use of insulin Z79.4 Active 023900222 Problem Mixed hyperlipidemia E78.2 Active 627122905 Problem CKD (chronic kidney disease), stage 2 (mild) N18.2 Active 799633924 Problem 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 668467097 Problem Diabetic polyneuropathy associated with type 2 diabetes mellitus E11.42 Active 00506054 Problem Anxiety F41.9 Active 82487831 Problem DM neuro manif type II E11.49 Active 70007343 Problem CAD (coronary artery disease) I25.10 Active 29003640 Problem History of lung cancer Z85.118 Active 709760621 Problem Adenomatous polyps D36.9 Active 68537199 ALLERGIES Substance Reaction Event Type Date Status Vasotec anaphylaxis Drug Allergy Jun, Active Codeine nausea and vomiting Drug Allergy Jun, Active SOCIAL HISTORY No smoking Hx information available PLAN OF CARE Activity Details Follow Up a1c 1 week lab 3 months otherwise Reason: VITAL SIGNS Height 70 in 2016-06-20 Weight 202 lbs 2016-06-20 Temperature 98.4 degrees Fahrenheit 2016-06-20 Heart Rate 70 bpm 2016-06-20 Respiratory Rate 20 2016-06-20 BMI 28.98 kg/m2 2016-06-20 Blood pressure systolic 132 mmHg 2016-06-20 Blood pressure diastolic 88 mmHg 2016-06-20 MEDICATIONS Medication Instructions Dosage Frequency Start Date End Date Duration Status Humalog KwikPen 100 unit/mL 8 Units by Subcutaneous route 3 times per day with meals Active Toprol XL 25 MG TAKE ONE TABLET BY MOUTH DAILY Active Levothyroxine Sodium 25 MCG Orally Once a day 1 tablet 24h Active Lovaza 1 gram 1 capsule by Oral route 2 times per day Active Levemir 100 UNIT/ML sq am and evening 32 units Active Stiolto Respimat 2.5-2.5 MCG/ACT Inhalation Once a day 2 puffs 24h Active Lovastatin 20 mg Orally Once a day 1 tablet with a meal 24h Active BD Insulin Syringe 31G X 5/16 as directed Active Zofran 4 MG Orally once a day prn 1 tablet Mar, 30 day(s) Active Xanax 0.25 MG oraly daily prn 1 tablet Active Pen [place] 32G X 4 MM subcutaneously 2 times a day as directed 12h 25 Mar 120 days Active Metformin HCl 1000 MG Orally Twice a day 1 tablet with meals 12h 30 Active Lasix 40 MG Orally PRN 1 tablet Active Potassium Bicarb-Citric Acid 10 MEQ Orally PRN 1 tablet Active Montelukast Sodium 10 MG Orally Once a day 1 tablet in the evening 24h Active Lovastatin 40 MG Orally Once a day 1 tablet with a meal 24h 30 Active Aspirin 325 mg take 1 tablet (325 mg) by oral route once daily Mar, Active Omeprazole 20 mg Orally Once a day 1 capsule 24h Jun, Active Pen [place] 31G X 6 MM subcutaneously 3 times a day as directed 8h Mar, 120 days Active Losartan Potassium 50 mg 1 tablet 12h 30 Active Blood Glucose Test 1 Pack subcutaneously 2 times a day Glucocard Expression 12h Active Norvasc 5 mg Orally Once a day 1 tablet 24h Active PredniSONE 20 MG Orally Once a day 1 tablet 24h Jun, 4 Jul, 2016 30 day(s) Active RESULTS No Results PROCEDURES Procedure Date Ordered Related Diagnosis Body Site [facility] VISIT ESTABLISHED PATIENT Jun 20, 2016 Office Visit, Est Pt., Level 4 Jun 20, 2016 IMMUNIZATIONS No Known Immunizations
--- OUTSIDE RECORDS SUMMARY | 2017-07-14 13:14 | XMS REPORT ---
Author Author ROBERTO CLANCY Organization eClinicalWorks Address Unknown Phone Unavailable Care Team Providers Care Thread Machine Operator Name Role Phone ROBERTO CLANCY CP Unavailable Allergies No Known Allergies Problems Problem Type Condition Code Onset Dates Condition Status Problem CKD (chronic kidney disease), stage 2 (mild) N18.2 Active Problem 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 Problem Mixed hyperlipidemia E78.2 Active Problem Acquired hypothyroidism E03.9 Active Problem detention current use of insulin Z79.4 Active Problem Adenomatous polyps D36.9 Active Problem Anxiety F41.9 Active Problem History of lung cancer Z85.118 Active Problem CAD (coronary artery disease) I25.10 Active Problem Essential hypertension I10 Active Problem DM neuro manif type II E11.49 Active Problem Type 2 diabetes mellitus with complication E11.8 Active Medications No Known Medications Results No Known Results Summary Purpose eClinicalWorks Submission
--- OUTSIDE RECORDS SUMMARY | 2017-07-14 13:15 | XMS REPORT ---
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
--- OUTSIDE RECORDS SUMMARY | 2017-07-14 13:17 | XMS REPORT ---
Author Author ROBERTO CLANCY Organization [facility] Address [address] [place] [address] Care Team Providers Care Human Resources Officer Name Role Phone ROBERTO CLANCY Unavailable PROBLEMS Type Condition ICD9-CM Code [id number] Code Onset Dates Condition Status SNOMED Code Problem Type 2 diabetes mellitus with complication E11.8 Active 01888654 Problem Acquired hypothyroidism E03.9 Active 282870885 Problem Essential hypertension I10 Active 40184671 Problem senior care current use of insulin Z79.4 Active 563323297 Problem Mixed hyperlipidemia E78.2 Active 624775375 Problem CKD (chronic kidney disease), stage 2 (mild) N18.2 Active 381841957 Problem 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 773651499 Problem Diabetic polyneuropathy associated with type 2 diabetes mellitus E11.42 Active 32157125 Problem Anxiety F41.9 Active 93625558 Problem DM neuro manif type II E11.49 Active 34600457 Problem CAD (coronary artery disease) I25.10 Active 33479362 Problem History of lung cancer Z85.118 Active 904622682 Problem Adenomatous polyps D36.9 Active 96135723 ALLERGIES No Information SOCIAL HISTORY Never Assessed PLAN OF CARE VITAL SIGNS MEDICATIONS Unknown Medications RESULTS No Results PROCEDURES No Known procedures IMMUNIZATIONS No Known Immunizations MEDICAL (GENERAL) HISTORY Type Description Date Medical History coronary artery disease, 1st [place] age 33 Medical History hypertension Medical History [...] Hospitalization History pancreatitis 2009, 2011 Hospitalization History [facility] -pancreatitis x9 days 2016
--- OUTSIDE RECORDS SUMMARY | 2017-07-14 13:19 | XMS REPORT ---
Author Author ROBERTO CLANCY Organization [facility] Address [address] [place] [address] Care Team Providers Care Lead Carpenter Name Role Phone ROBERTO CLANCY Unavailable PROBLEMS Type Condition ICD9-CM Code [id number] Code Onset Dates Condition Status SNOMED Code Problem Type 2 diabetes mellitus with complication E11.8 Active 07681368 Problem Acquired hypothyroidism E03.9 Active 305027847 Problem Essential hypertension I10 Active 05987583 Problem senior care current use of insulin Z79.4 Active 164383011 Problem Mixed hyperlipidemia E78.2 Active 332587783 Problem CKD (chronic kidney disease), stage 2 (mild) N18.2 Active 031017269 Problem 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 313702433 Problem Diabetic polyneuropathy associated with type 2 diabetes mellitus E11.42 Active 62316076 Problem Anxiety F41.9 Active 22694594 Problem DM neuro manif type II E11.49 Active 99704748 Problem CAD (coronary artery disease) I25.10 Active 13508096 Problem History of lung cancer Z85.118 Active 843194208 Problem Adenomatous polyps D36.9 Active 01770021 ALLERGIES Unknown Allergies SOCIAL HISTORY No smoking Hx information available PLAN OF CARE VITAL SIGNS MEDICATIONS Unknown Medications RESULTS No Results PROCEDURES No Known procedures IMMUNIZATIONS No Known Immunizations
--- OUTSIDE RECORDS SUMMARY | 2017-07-14 13:24 | XMS REPORT ---
Author Author ROBERTO CLANCY Organization [facility] Address [address] [place] [address] Care Team Providers Care Ointment Mill Tender Name Role Phone ROBERTO CLANCY Unavailable PROBLEMS Type Condition ICD9-CM Code [id number] Code Onset Dates Condition Status SNOMED Code Problem Type 2 diabetes mellitus with complication E11.8 Active 17433223 Problem Acquired hypothyroidism E03.9 Active 814615230 Problem Essential hypertension I10 Active 26472638 Problem care home current use of insulin Z79.4 Active 863604084 Problem Mixed hyperlipidemia E78.2 Active 495617929 Problem CKD (chronic kidney disease), stage 2 (mild) N18.2 Active 552596991 Problem 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 487556129 Problem Diabetic polyneuropathy associated with type 2 diabetes mellitus E11.42 Active 65321090 Problem Anxiety F41.9 Active 32739082 Problem DM neuro manif type II E11.49 Active 70529655 Problem CAD (coronary artery disease) I25.10 Active 75584611 Problem History of lung cancer Z85.118 Active 352810410 Problem Adenomatous polyps D36.9 Active 43011497 ALLERGIES No Information SOCIAL HISTORY Never Assessed PLAN OF CARE VITAL SIGNS MEDICATIONS Unknown Medications RESULTS No Results PROCEDURES Procedure Date Ordered Result Body Site GLYCATED HEMOGLOBIN TEST Jul 25, 2016 LAB NOT BILLED BY [facility] Jul 25, 2016 VENIPUNCT, ROUTINE* Jul 25, 2016 IMMUNIZATIONS No Known Immunizations MEDICAL (GENERAL) HISTORY Type Description Date Medical History coronary artery disease, 1st [place] age 33 Medical History hypertension Medical History [...]
--- OUTSIDE RECORDS SUMMARY | 2017-07-14 13:24 | XMS REPORT ---
Author Author ROBERTO CLANCY [facility] eClinicalWorks Address Unknown Phone Unavailable Care Team Providers Care Aegis Operations Specialist Name Role Phone ROBERTO CLANCY CP Unavailable Allergies No Known Allergies Problems Problem Type Condition Code Onset Dates Condition Status Problem Acquired hypothyroidism E03.9 Active Assessment Encounter for immunization Z23 Active Problem CAD (coronary artery disease) I25.10 Active Problem Essential hypertension I10 Active Problem Type 2 diabetes mellitus with complication E11.8 Active Problem CKD (chronic kidney disease), stage 2 (mild) N18.2 Active Problem pen[facility]iary current use of insulin Z79.4 Active Problem 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 Problem Mixed hyperlipidemia E78.2 Active Medications No Known Medications Procedures Procedure Coding System Code Date SINGLE IMMUNIZATION ADMIN CPT-4 68206 Mar 29, 2015 FLUARIX QUAD (3 & UP)-GSK-2014 CPT-4 14393 Mar 29, 2015 Results No Known Results Immunizations Vaccine Administration Date FLUARIX QUAD (3 & UP)-GSK-2014Mar 29, 2015 Summary Purpose eClinicalWorks Submission
--- OUTSIDE RECORDS SUMMARY | 2017-07-14 13:28 | XMS REPORT ---
Author Author ROBERTO CLANCY Organization eClinicalWorks Address Unknown Phone Unavailable Care Team Providers Care Net Programmer Analyst Name Role Phone ROBERTO CLANCY CP Unavailable Allergies No Known Allergies Problems Problem Type Condition Code Onset Dates Condition Status Problem CKD (chronic kidney disease), stage 2 (mild) N18.2 Active Problem 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 Problem Mixed hyperlipidemia E78.2 Active Problem Acquired hypothyroidism E03.9 Active Problem [facility] current use of insulin Z79.4 Active Problem [...]
--- OUTSIDE RECORDS SUMMARY | 2017-07-14 13:28 | XMS REPORT ---
Author Author ROBERTO CLANCY Organization [facility] Address [address] [place] [address] Care Team Providers Care Mill Set Up Name Role Phone ROBERTO CLANCY Unavailable PROBLEMS Type Condition ICD9-CM Code APT93-RC Code Onset Dates Condition Status SNOMED Code Problem Type 2 diabetes mellitus with complication E11.8 Active 97824762 Problem Acquired hypothyroidism E03.9 Active 009384536 Problem Essential hypertension I10 Active 59364425 Problem senior care current use of insulin Z79.4 Active 771706879 Problem Mixed hyperlipidemia E78.2 Active 123688508 Problem CKD (chronic kidney disease), stage 2 (mild) N18.2 Active 513002253 Problem 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 267109428 Problem Diabetic polyneuropathy associated with type 2 diabetes mellitus E11.42 Active 44199144 Problem Anxiety F41.9 Active 89884030 Problem DM neuro manif type II E11.49 Active 98468790 Problem CAD (coronary artery disease) I25.10 Active 52121978 Problem History of lung cancer Z85.118 Active 846792170 Problem Adenomatous polyps D36.9 Active 93268881 ALLERGIES Unknown Allergies SOCIAL HISTORY No smoking Hx information available PLAN OF CARE VITAL SIGNS MEDICATIONS Medication Instructions Dosage Frequency Start Date End Date Duration Status Augmentin 875-125 MG Orally every 12 hrs 1 tablet 12h Jun, 3 Jul, 2016 10 day(s) Active RESULTS No Results PROCEDURES No Known procedures IMMUNIZATIONS No Known Immunizations
--- OUTSIDE RECORDS SUMMARY | 2017-07-14 13:31 | XMS REPORT ---
Author Author ROBERTO CLANCY Organization [employer] Address Unknown Phone Unavailable Care Team Providers Care Returned Telephone Equipment Appraiser Name Role Phone ROBERTO CLANCY CP Unavailable Allergies No Known Allergies Problems Problem Type Condition Code Onset Dates Condition Status Problem CKD (chronic kidney disease), stage 2 (mild) N18.2 Active Problem 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 Problem Mixed hyperlipidemia E78.2 Active Problem Acquired hypothyroidism E03.9 Active Problem [facility] current use of insulin Z79.4 Active Problem Adenomatous polyps D36.9 Active Problem Anxiety F41.9 Active Problem History of lung cancer Z85.118 Active Problem CAD (coronary artery disease) I25.10 Active Problem Essential hypertension I10 Active Problem DM neuro manif type II E11.49 Active Problem Type 2 diabetes mellitus with complication E11.8 Active Medications Medication Code System Code Instructions Start Date End Date Status Dosage Humalog KwikPen [facility] [address]-37 100 UNIT/ML Subcutaneous 3 times a day 8 Units Levemir [facility] [address]-52 100 UNIT/ML Subcutaneous 2 times a day 22 units Results No Known Results Summary Purpose [employer] Submission
[2017-07-14] MEDS ORDERED: CATHETER FLUSH 10 ML SYR IV PRN ×2 (13:45→14:30)
[2017-07-14] MEDS ORDERED: ONDANSETRON 4 MG/5 ML ORAL SOLN (ZOFRAN) 5 ML PO PRN (13:45)
[2017-07-14] MEDS ORDERED: IOHEXOL 350 MG/ML 150 ML (OMNIPAQUE 350) VIAL IV ONE (13:45)
--- OUTSIDE RECORDS SUMMARY | 2017-07-14 13:46 | XMS REPORT | Continuity of Care Document ---
Author Author [facility] Organization [facility] Address Unknown Phone Unavailable Allergies Active Description Code Type Severity Reaction Onset Reported/Identified Relationship to Patient Clinical Status Yes codeine [id number] Drug Allergy Unknown N/A 01/13/2007 Yes enalaprilat [id number] Drug Allergy Severe anaphylactic 06/26/2007 Yes haloperidol [id number] Drug Allergy Unknown NAUSEA 10/07/2013 Medications There is no data. Problems Date Dx Coded Attending Type Code Diagnosis Diagnosed By 05/15/1604 SALOME STEVE Ot 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 OF SUPRAGLOTTIS 05/15/1604 SALOME STEVE Ot C34.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 NEOPLASM OF UPPER LOBE, LEFT B 05/15/1604 SALOME STEVE Ot F17.210 NICOTINE DEPENDENCE, CIGARETTES, UNCOMPL 05/15/1604 SALOME STEVE Ot Z45.2 ENCOUNTER FOR ADJUSTMENT AND MANAGEMENT 05/15/1604 SALOME STEVE Ot Z79.899 OTHER ALF (CURRENT) DRUG THERAPY 05/15/1604 SALOME STEVE Ot Z92.21 PERSONAL HISTORY OF ANTINEOPLASTIC CHEMO 05/15/1604 SALOME STEVE Ot Z92.3 PERSONAL HISTORY OF IRRADIATION 10/11/2013 LILLY LEE DO Ot 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 10/11/2013 LILLY LEE DO Ot 250.01 DIAB OLU WO COMPL, TYPE I [JUVENILE TYP 10/11/2013 LILLY LEE DO Ot 272.4 HYPERLIPIDEMIA NEC/NOS 10/11/2013 LILLY LEE DO Ot 401.9 HYPERTENSION NOS 10/11/2013 LILLY LEE DO Ot 414.00 CORON ATHEROSCLER NOS TYPE VESSEL, NATIV 10/11/2013 LILLY LEE DO Ot 428.0 CONGESTIVE HEART FAILURE NOS 10/11/2013 LILLY LEE DO Ot V74.8 SCREEN-BACTERIAL DIS NEC 01/02/2014 POWER, BOBAN N Ot 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 01/02/2014 POWER, BOBAN N Ot 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 01/02/2014 POWER, BOBAN N Ot 250.00 DIAB OLU WO COMPL, TYPE II OR UNSPEC TY 01/02/2014 POWER BOBAN N Ot 305.1 TOBACCO USE DISORDER 01/02/2014 POWER BOBAN N Ot 401.9 HYPERTENSION NOS 01/02/2014 POWER BOBAN N Ot 414.00 CORON ATHEROSCLER NOS TYPE VESSEL, NATIV 01/02/2014 POWER BOBAN N Ot 793.11 SOLITARY PULMONARY NODULE 01/02/2014 POWER BOBAN N Ot V45.81 AORTOCORONARY BYPASS 01/02/2014 POWRE, BOBBRANDO N Ot V58.0 ENCOUNTER FOR RADIOTHERAPY 01/02/2014 POWER BOBAN N Ot V58.67 LONG-TERM (CURRENT) USE OF INSULIN 01/02/2014 POWERPIOTRAN N Ot V58.69 OTH MED,LT,CURRENT USE 04/13/2014 POWER BOBAN N Ot 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 04/13/2014 POWER, BOBAN N Ot 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 04/13/2014 POWER, BOBAN N Ot 250.00 DIAB OLU WO COMPL, TYPE II OR UNSPEC TY 04/13/2014 POWER, BOBAN N Ot 305.1 TOBACCO USE DISORDER 04/13/2014 POWER BOBAN N Ot 401.9 HYPERTENSION NOS 04/13/2014 POWER BOBAN N Ot 414.00 CORON ATHEROSCLER NOS TYPE VESSEL, NATIV 04/13/2014 POWER BOBAN N Ot 793.11 SOLITARY PULMONARY NODULE 04/13/2014 POWERPIOTRAN N Ot V45.81 AORTOCORONARY BYPASS 04/13/2014 POWER, BOBAN N Ot V58.67 LONG-TERM (CURRENT) USE OF INSULIN 04/13/2014 POWER BOBAN N Ot V58.69 OTH MED,LT,CURRENT USE 04/28/2014 SERGEI CUTLER, STEF P Ot 793.19 04/28/2014 SERGEI CUTLER, STEF Arriola Ot V72.63 04/28/2014 SERGEI CUTLER, STEF Arriola Ot V72.81 04/28/2014 SERGEI CUTLER, STEF P Ot V74.8 04/29/2014 SERGEI CUTLER, STEF P Ot 478.79 DISEASE OF LARYNX NEC 05/04/2014 NALINI JOHNS DO S Ot 246.2 05/04/2014 NALINI JOHNS DO S Ot 787.20 05/04/2014 SERGEI CUTLER, STEF P Ot 241.0 05/04/2014 SERGEI CUTLER, STEF P Ot 492.8 05/04/2014 SERGEI CUTLER, STEF P Ot 784.2 05/04/2014 SERGEI CUTLER, STEF P Ot 785.6 05/04/2014 SERGEI CUTLER, STEF P Ot 787.20 05/04/2014 SERGEI CUTLER, STEF P Ot 240.9 05/04/2014 SERGEI CUTLER, STEF P Ot 780.79 05/04/2014 SERGEI CUTLER, STEF P Ot 784.42 05/04/2014 JAMES CUTLER, ALBA Zamora Ot 401.9 05/04/2014 JAMES CUTLER, ALBA Zamora Ot 414.00 05/04/2014 ALBA RAMIREZ MD Ot 794.30 05/04/2014 SHARLENE CUTLER, MAGAN E Ot 161.1 05/04/2014 LEELILLY SWENSON DO Ot 161.1 05/04/2014 LEELILLY SWENSON DO Ot V72.63 05/04/2014 LEELILLY SWENSON DO Ot V72.84 05/04/2014 KAYCEE HASSAN MEMBERSHIP ADVISOR Ot 161.1 05/04/2014 KAYCEE HASSAN MEMBERSHIP ADVISOR Ot 196.0 05/04/2014 KAYCEE HASSAN MEMBERSHIP ADVISOR Ot 250.00 05/04/2014 KAYCEE HASSAN MEMBERSHIP ADVISOR Ot 305.1 05/04/2014 KAYCEE HASSAN MEMBERSHIP ADVISOR Ot 401.9 05/04/2014 KAYCEE HASSAN MEMBERSHIP ADVISOR Ot 414.00 05/04/2014 KAYCEE HASSAN MEMBERSHIP ADVISOR Ot 793.11 05/04/2014 KAYCEE HASSAN MEMBERSHIP ADVISOR Ot V45.81 05/04/2014 KAYCEE HASSAN MEMBERSHIP ADVISOR Ot V58.67 05/04/2014 KAYCEE HASSAN MEMBERSHIP ADVISOR Ot V58.69 05/04/2014 KAYCEE HASSAN MEMBERSHIP ADVISOR Ot 161.1 05/04/2014 KAYCEE HASSAN MEMBERSHIP ADVISOR Ot 196.0 05/04/2014 HASSANKAYCEE Marinelli S MEMBERSHIP ADVISOR Ot 250.00 05/04/2014 HASSANKAYCEE S MEMBERSHIP ADVISOR Ot 305.1 05/04/2014 HASSANKAYCEE Marinelli S MEMBERSHIP ADVISOR Ot 401.9 05/04/2014 KAYCEE HASSAN S MEMBERSHIP ADVISOR Ot 414.00 05/04/2014 SONYA KAYCEE S MEMBERSHIP ADVISOR Ot 793.11 05/04/2014 SONYA KAYCEE S MEMBERSHIP ADVISOR Ot V45.81 05/04/2014 HASSANKAYCEE S MEMBERSHIP ADVISOR Ot V58.67 05/04/2014 HASSANKAYCEE S MEMBERSHIP ADVISOR Ot V58.69 05/04/2014 SONYAKAYCEE S MEMBERSHIP ADVISOR Ot 161.1 05/04/2014 SONYAKAYCEE S MEMBERSHIP ADVISOR Ot 196.0 05/04/2014 SONYAKAYCEE S MEMBERSHIP ADVISOR Ot 250.00 05/04/2014 SONYA KAYCEE S MEMBERSHIP ADVISOR Ot 305.1 05/04/2014 SONYA KAYCEE S MEMBERSHIP ADVISOR Ot 401.9 05/04/2014 SONYAKAYCEE S MEMBERSHIP ADVISOR Ot 414.00 05/04/2014 SONAYKAYCEE S MEMBERSHIP ADVISOR Ot 793.11 05/04/2014 SONYAKAYCEE S MEMBERSHIP ADVISOR Ot V45.81 05/04/2014 SONYAKAYCEE S MEMBERSHIP ADVISOR Ot V58.67 05/04/2014 SONYAKAYCEE S MEMBERSHIP ADVISOR Ot V58.69 05/04/2014 HASSANKAYCEE S MEMBERSHIP ADVISOR Ot 161.1 05/04/2014 SONYA KAYCEE S MEMBERSHIP ADVISOR Ot 196.0 05/04/2014 SONYAKAYCEE S MEMBERSHIP ADVISOR Ot 250.00 05/04/2014 HASSANKAYCEE S MEMBERSHIP ADVISOR Ot 305.1 05/04/2014 HASSANKAYCEE S MEMBERSHIP ADVISOR Ot 401.9 05/04/2014 SONYA KAYCEE S MEMBERSHIP ADVISOR Ot 414.00 05/04/2014 SONYAKAYCEE S MEMBERSHIP ADVISOR Ot 793.11 05/04/2014 SONYA KAYCEE S MEMBERSHIP ADVISOR Ot V45.81 05/04/2014 SONYA KAYCEE S MEMBERSHIP ADVISOR Ot V58.67 05/04/2014 SONYA KAYCEE S MEMBERSHIP ADVISOR Ot V58.69 05/04/2014 KAYCEE HASSAN S MEMBERSHIP ADVISOR Ot 161.1 05/04/2014 KAYCEE HASSAN S MEMBERSHIP ADVISOR Ot 196.0 05/04/2014 KAYCEE HASSAN S MEMBERSHIP ADVISOR Ot 250.00 05/04/2014 KAYCEE HASSAN S MEMBERSHIP ADVISOR Ot 305.1 05/04/2014 KAYCEE HASSAN S MEMBERSHIP ADVISOR Ot 401.9 05/04/2014 KAYCEE HASSAN S MEMBERSHIP ADVISOR Ot 414.00 05/04/2014 KAYCEE HASSAN S MEMBERSHIP ADVISOR Ot 793.11 05/04/2014 KAYCEE HASSAN S MEMBERSHIP ADVISOR Ot V45.81 05/04/2014 KAYCEE HASSAN S MEMBERSHIP ADVISOR Ot V58.67 05/04/2014 KAYCEE HASSAN S MEMBERSHIP ADVISOR Ot V58.69 05/04/2014 KAYCEE HASSAN S MEMBERSHIP ADVISOR Ot 161.1 05/04/2014 HASSANKAYCEE Marinelli S MEMBERSHIP ADVISOR Ot 196.0 05/04/2014 HASSANKAYCEE Marinelli S MEMBERSHIP ADVISOR Ot 250.00 05/04/2014 KAYCEE HASSAN S MEMBERSHIP ADVISOR Ot 305.1 05/04/2014 KAYCEE HASSAN S MEMBERSHIP ADVISOR Ot 401.9 05/04/2014 KAYCEE HASSAN S MEMBERSHIP ADVISOR Ot 414.00 05/04/2014 KAYCEE HASSAN S MEMBERSHIP ADVISOR Ot 496 05/04/2014 KAYCEE HASSAN S MEMBERSHIP ADVISOR Ot 793.11 05/04/2014 KAYCEE HASSAN S MEMBERSHIP ADVISOR Ot V45.81 05/04/2014 KAYCEE HASSAN S MEMBERSHIP ADVISOR Ot V58.67 05/04/2014 KAYCEE HASSAN S MEMBERSHIP ADVISOR Ot V58.69 05/04/2014 POWER BOBBRANDO N Ot 161.1 05/04/2014 POWERSALOME N Ot 496 05/04/2014 POWER, BOBAN N Ot 787.20 05/04/2014 POWERSALOME PHILLIPS N Ot 161.1 05/04/2014 ZAK BUCIO MEMBERSHIP ADVISOR Ot 250.02 05/04/2014 HASSANKAYCEE Marinelli S MEMBERSHIP ADVISOR Ot 161.1 05/04/2014 HASSANKAYCEE Marinelli S MEMBERSHIP ADVISOR Ot 196.0 05/04/2014 HASSANKAYCEE S MEMBERSHIP ADVISOR Ot 250.00 05/04/2014 HASSANKAYCEE Marinelli S MEMBERSHIP ADVISOR Ot 305.1 05/04/2014 KAYCEE HASSAN S MEMBERSHIP ADVISOR Ot 401.9 05/04/2014 KAYCEE HASSAN S MEMBERSHIP ADVISOR Ot 414.00 05/04/2014 KAYCEE HASSAN S MEMBERSHIP ADVISOR Ot 496 05/04/2014 KAYCEE HASSAN S MEMBERSHIP ADVISOR Ot 793.11 05/04/2014 KAYCEE HASSAN S MEMBERSHIP ADVISOR Ot V45.81 05/04/2014 KAYCEE HASSAN S MEMBERSHIP ADVISOR Ot V58.67 05/04/2014 KAYCEE HASSAN S MEMBERSHIP ADVISOR Ot V58.69 05/04/2014 KAYCEE HASSAN S MEMBERSHIP ADVISOR Ot 161.1 05/04/2014 KAYCEE HASSAN S MEMBERSHIP ADVISOR Ot 196.0 05/04/2014 KAYCEE HASSAN S MEMBERSHIP ADVISOR Ot 250.00 05/04/2014 KAYCEE HASSAN S MEMBERSHIP ADVISOR Ot 305.1 05/04/2014 KAYCEE HASSAN S MEMBERSHIP ADVISOR Ot 401.9 05/04/2014 HASSANKAYCEE Marinelli S MEMBERSHIP ADVISOR Ot 414.00 05/04/2014 KAYCEE HASSAN S MEMBERSHIP ADVISOR Ot 496 05/04/2014 KAYCEE HASSAN MEMBERSHIP ADVISOR Ot 793.11 05/04/2014 KAYCEE HASSAN S MEMBERSHIP ADVISOR Ot V45.81 05/04/2014 KAYCEE HASSAN S MEMBERSHIP ADVISOR Ot V58.67 05/04/2014 KAYCEE HASSAN S MEMBERSHIP ADVISOR Ot V58.69 05/04/2014 KAYCEE HASSAN S MEMBERSHIP ADVISOR Ot 161.1 05/04/2014 SERGEI CUTLER, STEF P Ot 793.19 05/04/2014 SERGEI CUTLER, STEF P Ot V72.63 05/04/2014 STEF MAI MD P Ot V72.81 05/04/2014 SERGEI CUTLER, STEF P Ot V74.8 05/04/2014 POWER, BOBAN N Ot 161.1 05/04/2014 POWER BOBAN N Ot 196.0 05/04/2014 POWER, BOBAN N Ot 250.00 05/04/2014 POWER, BOBAN N Ot 305.1 05/04/2014 POWER, BOBAN N Ot 401.9 05/04/2014 POWER BOBAN N Ot 414.00 05/04/2014 POWER BOBAN N Ot 793.11 05/04/2014 POWER, BOBAN N Ot V45.81 05/04/2014 POWER, BOBAN N Ot V58.67 05/04/2014 POWER, BOBAN N Ot V58.69 05/06/2014 CLAUDIA CUTLER, KYLIE Dawson Ot 272.4 05/06/2014 CLAUDIA CUTLER, KYLIE J Ot 401.9 05/06/2014 CLAUDIA CUTLER, KYLIE J Ot 414.00 05/31/2014 POWER, BOBAN N Ot 161.1 05/31/2014 POWER, BOBAN N Ot 196.0 05/31/2014 POWER, BOBAN N Ot 250.00 05/31/2014 POWER, BOBAN N Ot 305.1 05/31/2014 POWER, BOBAN N Ot 401.9 05/31/2014 POWER, BOBAN N Ot 414.00 05/31/2014 POWER, BOBAN N Ot 793.11 05/31/2014 POWER, BOBAN N Ot V45.81 05/31/2014 POWER, BOBAN N Ot V58.67 05/31/2014 POWER, BOBAN N Ot V58.69 05/31/2014 CLAUDIA CUTLER, KYLIE Dawson Ot 272.4 05/31/2014 CLAUDIA CUTLER, KYLIE Dawson Ot 401.9 05/31/2014 CLAUDIA CUTLER, KYLIE Dawson Ot 414.00 05/31/2014 KAYCEE HASSAN MEMBERSHIP ADVISOR Ot 161.1 05/31/2014 KAYCEE HASSAN MEMBERSHIP ADVISOR Ot 196.0 05/31/2014 KAYCEE HASSAN S MEMBERSHIP ADVISOR Ot 250.00 05/31/2014 KAYCEE HASSAN S MEMBERSHIP ADVISOR Ot 305.1 05/31/2014 KAYCEE HASSAN S MEMBERSHIP ADVISOR Ot 401.9 05/31/2014 KAYCEE HASSAN S MEMBERSHIP ADVISOR Ot 414.00 05/31/2014 KAYCEE HASSAN MEMBERSHIP ADVISOR Ot 496 05/31/2014 KAYCEE HASSAN MEMBERSHIP ADVISOR Ot 793.11 05/31/2014 KAYCEE HASSAN S MEMBERSHIP ADVISOR Ot V45.81 05/31/2014 KAYCEE HASSAN S MEMBERSHIP ADVISOR Ot V58.67 05/31/2014 KAYCEE HASSAN S MEMBERSHIP ADVISOR Ot V58.69 06/01/2014 POWER, BOBAN N Ot 161.1 06/01/2014 POWER, BOBAN N Ot 196.0 06/01/2014 POWER, BOBAN N Ot 250.00 06/01/2014 POWER, BOBAN N Ot 305.1 06/01/2014 POWER, BOBAN N Ot 401.9 06/01/2014 POWER, BOBAN N Ot 414.00 06/01/2014 POWER, BOBAN N Ot 793.11 06/01/2014 POWER, BOBAN N Ot V45.81 06/01/2014 POWER, BOBAN N Ot V58.67 06/01/2014 POWER, BOBAN N Ot V58.69 06/24/2014 POWER, BOBAN N Ot 161.1 06/24/2014 POWER, BOBAN N Ot 196.0 06/24/2014 POWER, BOBAN N Ot 250.00 06/24/2014 POWER, BOBAN N Ot 305.1 06/24/2014 POWER, BOBAN N Ot 401.9 06/24/2014 POWER, BOBAN N Ot 414.00 06/24/2014 POWER, BOBAN N Ot 793.11 06/24/2014 POWER, BOBAN N Ot V45.81 06/24/2014 POWER, BOBAN N Ot V58.67 06/24/2014 POWER, BOBAN N Ot V58.69 06/24/2014 POWER, BOBAN N Ot V58.81 07/06/2014 POWER, BOBAN N Ot 161.1 07/08/2014 KAYCEE HASSAN MEMBERSHIP ADVISOR Ot 161.1 07/08/2014 KAYCEE HASSAN MEMBERSHIP ADVISOR Ot 196.0 07/08/2014 KAYCEE HASSAN MEMBERSHIP ADVISOR Ot 250.00 07/08/2014 KAYCEE HASSAN MEMBERSHIP ADVISOR Ot 305.1 07/08/2014 KAYCEE HASSAN MEMBERSHIP ADVISOR Ot 401.9 07/08/2014 KAYCEE HASSAN MEMBERSHIP ADVISOR Ot 414.00 07/08/2014 KAYCEE HASSAN MEMBERSHIP ADVISOR Ot 496 07/08/2014 KAYCEE HASSAN MEMBERSHIP ADVISOR Ot 793.11 07/08/2014 KAYCEE HASSAN MEMBERSHIP ADVISOR Ot V45.81 07/08/2014 KAYCEE HASSAN MEMBERSHIP ADVISOR Ot V58.67 07/08/2014 HASSANKAYCEE Marinelli S MEMBERSHIP ADVISOR Ot V58.69 07/12/2014 POWER, BOBAN N Ot 161.1 07/12/2014 POWER, BOBAN N Ot 196.0 07/12/2014 POWER, BOBAN N Ot 250.00 07/12/2014 POWER, BOBAN N Ot 305.1 07/12/2014 POWER, BOBAN N Ot 401.9 07/12/2014 POWER, BOBAN N Ot 414.00 07/12/2014 POWER, BOBAN N Ot 793.11 07/12/2014 POWER, BOBAN N Ot V45.81 07/12/2014 POWER, BOBAN N Ot V58.67 07/12/2014 POWER, BOBAN N Ot V58.69 07/12/2014 POWER, PIOTRAN N Ot V58.81 07/21/2014 HASSAN KAYCEE S MEMBERSHIP ADVISOR Ot 161.1 07/21/2014 HASSAN KAYCEE S MEMBERSHIP ADVISOR Ot 196.0 07/21/2014 HASSAN KAYCEE S MEMBERSHIP ADVISOR Ot 250.00 07/21/2014 HASSANKAYCEE S MEMBERSHIP ADVISOR Ot 305.1 07/21/2014 HASSANKAYCEE S MEMBERSHIP ADVISOR Ot 401.9 07/21/2014 HASSAN KAYCEE S MEMBERSHIP ADVISOR Ot 414.00 07/21/2014 HASSAN KAYCEE S MEMBERSHIP ADVISOR Ot 496 07/21/2014 HASSANKAYCEE S MEMBERSHIP ADVISOR Ot 793.11 07/21/2014 HASSANKAYCEE S MEMBERSHIP ADVISOR Ot V45.81 07/21/2014 HASSANKAYCEE S MEMBERSHIP ADVISOR Ot V58.67 07/21/2014 HASSANKAYCEE S MEMBERSHIP ADVISOR Ot V58.69 07/21/2014 POWER, BOBAN N Ot 161.1 07/25/2014 POWER, BOBAN N Ot 161.1 07/25/2014 POWER, BOBAN N Ot 196.0 07/25/2014 POWER, BOBAN N Ot 250.00 07/25/2014 POWER, BOBAN N Ot 305.1 07/25/2014 POWER, BOBAN N Ot 401.9 07/25/2014 POWER, BOBAN N Ot 414.00 07/25/2014 POWER, BOBAN N Ot 793.11 07/25/2014 POWER, BOBAN N Ot V45.81 07/25/2014 POWER, BOBAN N Ot V58.67 07/25/2014 POWER, BOBAN N Ot V58.69 07/25/2014 POWER, BOBAN N Ot V58.81 07/25/2014 POWER, BOBAN N Ot 161.1 07/25/2014 POWER, BOBAN N Ot 196.0 07/25/2014 POWER, BOBAN N Ot 250.00 07/25/2014 POWER, BOBAN N Ot 305.1 07/25/2014 POWER, BOBAN N Ot 401.9 07/25/2014 POWER, BOBAN N Ot 414.00 07/25/2014 POWER, BOBAN N Ot 793.11 07/25/2014 POWER, BOBAN N Ot V45.81 07/25/2014 POWER, BOBAN N Ot V58.67 07/25/2014 POWER, BOBAN N Ot V58.69 07/25/2014 POWER, BOBAN N Ot V58.81 07/25/2014 POWER, BOBAN N Ot 161.1 07/25/2014 POWER, BOBAN N Ot 196.0 07/25/2014 POWER, BOBAN N Ot 250.00 07/25/2014 POWER, BOBAN N Ot 305.1 07/25/2014 POWER, BOBAN N Ot 401.9 07/25/2014 POWER, BOBAN N Ot 414.00 07/25/2014 POWER, BOBAN N Ot 793.11 07/25/2014 POWER, BOBAN N Ot V45.81 07/25/2014 POWER, BOBAN N Ot V58.67 07/25/2014 POWER, BOBAN N Ot V58.69 07/25/2014 POWER, BOBAN N Ot V58.81 07/28/2014 HASSANKAYCEE Marinelli S MEMBERSHIP ADVISOR Ot 161.1 07/28/2014 HASSANKAYCEE Marinelli S MEMBERSHIP ADVISOR Ot 196.0 07/28/2014 HASSANKAYCEE Marinelli S MEMBERSHIP ADVISOR Ot 250.00 07/28/2014 HASSANKAYCEE Marinelli S MEMBERSHIP ADVISOR Ot 305.1 07/28/2014 HASSANKAYCEE Marinelli S MEMBERSHIP ADVISOR Ot 401.9 07/28/2014 HASSANKAYCEE Marinelli S MEMBERSHIP ADVISOR Ot 414.00 07/28/2014 KAYCEE HASSAN MEMBERSHIP ADVISOR Ot 496 07/28/2014 KAYCEE HASSAN MEMBERSHIP ADVISOR Ot 793.11 07/28/2014 KAYCEE HASSAN MEMBERSHIP ADVISOR Ot V45.81 07/28/2014 KAYCEE HASSAN MEMBERSHIP ADVISOR Ot V58.67 07/28/2014 KAYCEE HASSAN MEMBERSHIP ADVISOR Ot V58.69 07/28/2014 KAYCEE HASSAN MEMBERSHIP ADVISOR Ot V58.81 08/03/2014 KAYCEE HASSAN MEMBERSHIP ADVISOR Ot 141.9 08/03/2014 KAYCEE HASSAN MEMBERSHIP ADVISOR Ot 793.11 08/29/2014 SALOME STEVE N Ot 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 08/29/2014 SALOME STEVE N Ot 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 08/29/2014 SALOME STEVE N Ot 250.00 DIAB OLU WO COMPL, TYPE II OR UNSPEC TY 08/29/2014 SALOME STEVE N Ot 305.1 TOBACCO USE DISORDER 08/29/2014 SALOME STEVE N Ot 401.9 HYPERTENSION NOS 08/29/2014 SALOME STEVE N Ot 414.00 CORON ATHEROSCLER NOS TYPE VESSEL, NATIV 08/29/2014 SALOEM STEVE N Ot 793.11 SOLITARY PULMONARY NODULE 08/29/2014 SALOME STEVE N Ot V45.81 AORTOCORONARY BYPASS 08/29/2014 SALOME STEVE N Ot V58.67 LONG-TERM (CURRENT) USE OF INSULIN 08/29/2014 SALOME STEVE N Ot V58.69 OT MED,LT,CURRENT USE 08/29/2014 SALOME STEVE N Ot V58.81 FIT/ADJ VASCULAR CATHETER 09/07/2014 SALOME STEVE N Ot 161.1 09/07/2014 SALOME STEVE N Ot 196.0 09/07/2014 SALOME STEVE N Ot 250.00 09/07/2014 SALOME STEVE N Ot 305.1 09/07/2014 POWER BOBAN N Ot 401.9 09/07/2014 POWER BOBAN N Ot 414.00 09/07/2014 SALOME STEVE N Ot 793.11 09/07/2014 POWER, BOBAN N Ot V45.81 09/07/2014 POWER, PIOTRAN N Ot V58.67 09/07/2014 POWER, BOBAN N Ot V58.69 09/07/2014 POWER, BOBAN N Ot V58.81 09/07/2014 POWER, BOBAN N Ot 161.1 09/07/2014 POWER, BOBAN N Ot 196.0 09/07/2014 POWER, BOBAN N Ot 250.00 09/07/2014 POWER, BOBAN N Ot 305.1 09/07/2014 POWER, BOBAN N Ot 401.9 09/07/2014 POWER, BOBAN N Ot 414.00 09/07/2014 POWER, BOBAN N Ot 793.11 09/07/2014 POWER, BOBBRANDO N Ot V45.81 09/07/2014 POWER, SALOME N Ot V58.67 09/07/2014 POWER, SALOME N Ot V58.69 09/07/2014 POWER, SALOME N Ot V58.81 09/09/2014 Ot 786.6 09/09/2014 Ot V72.63 09/09/2014 Ot V72.81 09/09/2014 Ot V72.83 09/14/2014 NALINI JOHNS DO Ot 246.2 09/14/2014 NALINI JOHNS DO Ot 787.20 09/14/2014 SERGEI CUTLER, STEF P Ot 241.0 09/14/2014 SERGEI CUTLER, STEF P Ot 492.8 09/14/2014 SERGEI CUTLER, STEF P Ot 784.2 09/14/2014 SERGEI CUTLER, STEF P Ot 785.6 09/14/2014 SERGEI CUTLER, STEF P Ot 787.20 09/14/2014 SERGEI CUTLER, STEF P Ot 240.9 09/14/2014 SERGEI CUTLER, STEF P Ot 780.79 09/14/2014 SERGEI CUTLER, STEF P Ot 784.42 09/14/2014 JAMES CUTLER, ALBA Zamora Ot 401.9 09/14/2014 JAMES CUTLER, ALBA Zamora Ot 414.00 09/14/2014 JAMES CUTLER, ALBA Zamora Ot 794.30 09/14/2014 SHARLENE CUTLER, MAGAN Delong Ot 161.1 09/14/2014 LILLY LEE DO Ot 161.1 09/14/2014 LILLY LEE DO Ot V72.63 09/14/2014 [facility], LILLY D Ot V72.84 09/14/2014 HASSANKAYCEE S MEMBERSHIP ADVISOR Ot 161.1 09/14/2014 HASSANKAYCEE S MEMBERSHIP ADVISOR Ot 196.0 09/14/2014 HASSANKAYCEE S MEMBERSHIP ADVISOR Ot 250.00 09/14/2014 HASSANKAYCEE S MEMBERSHIP ADVISOR Ot 305.1 09/14/2014 SONYA KAYCEE S MEMBERSHIP ADVISOR Ot 401.9 09/14/2014 HASSANKAYCEE S MEMBERSHIP ADVISOR Ot 414.00 09/14/2014 HASSAN, KAYCEE S MEMBERSHIP ADVISOR Ot 793.11 09/14/2014 SONYA KAYCEE S MEMBERSHIP ADVISOR Ot V45.81 09/14/2014 SONYAKAYCEE S MEMBERSHIP ADVISOR Ot V58.67 09/14/2014 SONYA KAYCEE S MEMBERSHIP ADVISOR Ot V58.69 09/14/2014 SONYA KAYCEE S MEMBERSHIP ADVISOR Ot 161.1 09/14/2014 SONYA KAYCEE S MEMBERSHIP ADVISOR Ot 196.0 09/14/2014 SONYA KAYCEE S MEMBERSHIP ADVISOR Ot 250.00 09/14/2014 SONYA KAYCEE S MEMBERSHIP ADVISOR Ot 305.1 09/14/2014 SONYA KAYCEE S MEMBERSHIP ADVISOR Ot 401.9 09/14/2014 SONYA KAYCEE S MEMBERSHIP ADVISOR Ot 414.00 09/14/2014 SONYA KAYCEE S MEMBERSHIP ADVISOR Ot 793.11 09/14/2014 SONYA KAYCEE S MEMBERSHIP ADVISOR Ot V45.81 09/14/2014 SONYA KAYCEE S MEMBERSHIP ADVISOR Ot V58.67 09/14/2014 HASSANKAYCEE S MEMBERSHIP ADVISOR Ot V58.69 09/14/2014 SONYA KAYCEE S MEMBERSHIP ADVISOR Ot 161.1 09/14/2014 HASSAN, KAYCEE S MEMBERSHIP ADVISOR Ot 196.0 09/14/2014 SONYA KAYCEE S MEMBERSHIP ADVISOR Ot 250.00 09/14/2014 HASSAN, KAYCEE S MEMBERSHIP ADVISOR Ot 305.1 09/14/2014 SONYA KAYCEE S MEMBERSHIP ADVISOR Ot 401.9 09/14/2014 HASSAN, KAYCEE S MEMBERSHIP ADVISOR Ot 414.00 09/14/2014 SONYA TONJA S MEMBERSHIP ADVISOR Ot 793.11 09/14/2014 SONYA [facility] S MEMBERSHIP ADVISOR Ot V45.81 09/14/2014 HASSAN [facility] S MEMBERSHIP ADVISOR Ot V58.67 09/14/2014 [facility]ASSAN [facility] S MEMBERSHIP ADVISOR Ot V58.69 09/14/2014 [facility]ASSAN[facility] S MEMBERSHIP ADVISOR Ot 161.1 09/14/2014 [facility] S [employer]BERSHIP ADVISOR Ot 196.0 09/14/2014 [facility] S [employer]BERSHIP ADVISOR Ot 250.00 09/14/2014 [facility] S [employer]BERSHIP ADVISOR Ot 305.1 09/14/2014 [facility] S MEMBERSHIP ADVISOR Ot 401.9 09/14/2014 [facility] S [employer]BERSHIP ADVISOR Ot 414.00 09/14/2014 [facility] S MEMBERSHIP ADVISOR Ot 793.11 09/14/2014 [facility] S MEMBERSHIP ADVISOR Ot V45.81 09/14/2014 [facility] S MEMBERSHIP ADVISOR Ot V58.67 09/14/2014 [facility] S MEMBERSHIP ADVISOR Ot V58.69 09/14/2014 [facility] S [employer]BERSHIP ADVISOR Ot 161.1 09/14/2014 [facility] S [employer]BERSHIP ADVISOR Ot 196.0 09/14/2014 [facility] S [employer]BERSHIP ADVISOR Ot 250.00 09/14/2014 [facility] S [employer]BERSHIP ADVISOR Ot 305.1 09/14/2014 [facility] S MEMBERSHIP ADVISOR Ot 401.9 09/14/2014 [facility] S [employer]BERSHIP ADVISOR Ot 414.00 09/14/2014 [facility] S [employer] ADVISOR Ot 793.11 09/14/2014 [facility] S [employer] ADVISOR Ot V45.81 09/14/2014 [facility] S [employer]BERSHIP ADVISOR Ot V58.67 09/14/2014 [facility] S [employer]BERSHIP ADVISOR Ot V58.69 09/14/2014 [facility] S [employer]BERSHIP ADVISOR Ot 161.1 09/14/2014 [facility] S MEMBERSHIP ADVISOR Ot 196.0 09/14/2014 [facility] S MEMBERSHIP ADVISOR Ot 250.00 09/14/2014 [facility] S MEMBERSHIP ADVISOR Ot 305.1 09/14/2014 [facility] S MEMBERSHIP ADVISOR Ot 401.9 09/14/2014 [facility] S [employer]BERSHIP ADVISOR Ot 414.00 09/14/2014 HASSANKAYCEE Marinelli S [employer]BERSHIP ADVISOR Ot 496 09/14/2014 [facility] S [employer]BERSHIP ADVISOR Ot 793.11 09/14/2014 [facility] Marinelli S [employer]BERSHIP ADVISOR Ot V45.81 09/14/2014 [facility], HIL S [employer]BERSHIP ADVISOR Ot V58.67 09/14/2014 [facility], HIL S [employer]BERSHIP ADVISOR Ot V58.69 09/14/2014 POWER, BOBAN N Ot 161.1 09/14/2014 POWER, BOBAN N Ot 496 09/14/2014 POWER, BOBAN N Ot 787.20 09/14/2014 POWER, PIOTRAN N Ot 161.1 09/14/2014 ZAK BUCIO [employer] ADVISOR Ot 250.02 09/14/2014 [facility] S [employer]BERSHIP ADVISOR Ot 161.1 09/14/2014 [facility] S [employer]BER[employer]IP ADVISOR Ot 196.0 09/14/2014 [facility] S MEMBERSHIP ADVISOR Ot 250.00 09/14/2014 [facility] S MEMBERSHIP ADVISOR Ot 305.1 09/14/2014 [facility] S [employer]BERSHIP ADVISOR Ot 401.9 09/14/2014 [facility] S [employer]BERSHIP ADVISOR Ot 414.00 09/14/2014 [facility], HIL S [employer]BER[employer]IP ADVISOR Ot 496 09/14/2014 [facility] S MEMBERSHIP ADVISOR Ot 793.11 09/14/2014 [facility], HIL S [employer]BERSHIP ADVISOR Ot V45.81 09/14/2014 [facility] S [employer]BERSHIP ADVISOR Ot V58.67 09/14/2014 [facility] S MEMBERSHIP ADVISOR Ot V58.69 09/14/2014 [facility] S [employer]BERSHIP ADVISOR Ot 161.1 09/14/2014 [facility] S MEMBERSHIP ADVISOR Ot 196.0 09/14/2014 [facility] S MEMBERSHIP ADVISOR Ot 250.00 09/14/2014 [facility] S MEMBERSHIP ADVISOR Ot 305.1 09/14/2014 [facility] S MEMBERSHIP ADVISOR Ot 401.9 09/14/2014 [facility] S MEMBERSHIP ADVISOR Ot 414.00 09/14/2014 [facility] S MEMBERSHIP ADVISOR Ot 496 09/14/2014 [facility] S [employer]BERSHIP ADVISOR Ot 793.11 09/14/2014 [facility] Marinelli S MEMBERSHIP ADVISOR Ot V45.81 09/14/2014 SONYAKAYCEE S [employer]BERSHIP ADVISOR Ot V58.67 09/14/2014 SONYAKAYCEE S [employer]BERSHIP ADVISOR Ot V58.69 09/14/2014 SONYAKAYCEE S [employer]BERSHIP ADVISOR Ot 161.1 09/14/2014 SERGEI CUTLER, STEF P Ot 793.19 09/14/2014 SERGEI CUTLER, STEF P Ot V72.63 09/14/2014 SERGEI CUTLER, STEF P Ot V72.81 09/14/2014 SERGEI CUTLER, STEF P Ot V74.8 09/14/2014 CLAUDIA CULTER, KYLIE Dawson Ot 272.4 09/14/2014 CLAUDIA CUTLER, KYLIE J Ot 401.9 09/14/2014 CLAUDIA CUTLER, KYLIE Dawson Ot 414.00 09/14/2014 SONYAKAYCEE S [employer]BER[employer]IP ADVISOR Ot 161.1 09/14/2014 SONYA KAYCEE S MEMBERSHIP ADVISOR Ot 196.0 09/14/2014 SONYA KAYCEE S MEMBERSHIP ADVISOR Ot 250.00 09/14/2014 SONYA KAYCEE S MEMBERSHIP ADVISOR Ot 305.1 09/14/2014 SONYA KAYCEE S MEMBERSHIP ADVISOR Ot 401.9 09/14/2014 SONYA KAYCEE S MEMBERSHIP ADVISOR Ot 414.00 09/14/2014 SONYA KAYCEE S MEMBERSHIP ADVISOR Ot 496 09/14/2014 SONYA KAYCEE S [employer]BERSHIP ADVISOR Ot 793.11 09/14/2014 SONYA KAYCEE S [employer]BERSHIP ADVISOR Ot V45.81 09/14/2014 SONYA KAYCEE S MEMBERSHIP ADVISOR Ot V58.67 09/14/2014 SONYA KAYCEE S MEMBERSHIP ADVISOR Ot V58.69 09/14/2014 H[facility]ANK[facility] Marinelli S MEMBERSHIP ADVISOR Ot 161.1 09/14/2014 SONYA KAYCEE S MEMBERSHIP ADVISOR Ot 196.0 09/14/2014 SONYA KAYCEE S [employer]BERSHIP ADVISOR Ot 250.00 09/14/2014 SONYA KAYCEE S [employer]BERSHIP ADVISOR Ot 305.1 09/14/2014 SONYA KAYCEE S [employer]BERSHIP ADVISOR Ot 401.9 09/14/2014 SONYA KAYCEE S [employer]BERSHIP ADVISOR Ot 414.00 09/14/2014 SONYA KAYCEE S [employer]BERSHIP ADVISOR Ot 496 09/14/2014 SONYA KAYCEE S [employer]BERSHIP ADVISOR Ot 793.11 09/14/2014 KAYCEE [facility] [employer] ADVISOR Ot V45.81 09/14/2014 KAYCEE [facility] [employer] ADVISOR Ot V58.67 09/14/2014 KAYCEE [facility] [employer] ADVISOR Ot V58.69 09/14/2014 KAYCEE HASSAN MEMBERSHIP ADVISOR Ot V58.81 09/14/2014 KAYCEE HASSAN MEMBERSHIP ADVISOR Ot 141.9 09/14/2014 KAYCEE HASSAN MEMBERSHIP ADVISOR Ot 793.11 09/14/2014 Ot 786.6 09/14/2014 Ot V72.63 09/14/2014 Ot V72.81 09/14/2014 Ot V72.83 09/14/2014 POWER, BOBAN N Ot 161.1 09/14/2014 POWER, BOBAN N Ot 196.0 09/14/2014 POWER, BOBAN N Ot 250.00 09/14/2014 POWER, BOBAN N Ot 305.1 09/14/2014 POWER, BOBAN N Ot 401.9 09/14/2014 POWER, BOBAN N Ot 414.00 09/14/2014 POWER, BOBAN N Ot 793.11 09/14/2014 POWER, BOBAN N Ot V45.81 09/14/2014 POWER, BOBAN N Ot V58.67 09/14/2014 POWER, BOBAN N Ot V58.69 09/14/2014 POWER, BOBAN N Ot V58.81 09/15/2014 CAROLYNER DO NALINI S Ot 246.2 09/15/2014 ANDREAS BIRD NALINI S Ot 787.20 09/15/2014 SERGEI CUTLER, STEF P Ot 241.0 09/15/2014 SERGEI CUTLER, STEF P Ot 492.8 09/15/2014 SERGEI CUTLER, STEF P Ot 784.2 09/15/2014 SERGEI CUTLER, STEF P Ot 785.6 09/15/2014 SERGEI CUTLER, STEF P Ot 787.20 09/15/2014 SERGEI CUTLER, STEF P Ot 240.9 09/15/2014 SERGEI CUTLER, STEF P Ot 780.79 09/15/2014 SERGEI CUTLER, STEF P Ot 784.42 09/15/2014 JAMES CUTLER, ALBA Zamora Ot 401.9 09/15/2014 JAMES CUTLER, ALBA Zamora Ot 414.00 09/15/2014 JAMES CUTLER, ALBA D Ot 794.30 09/15/2014 SHARLENE CUTLER, MAGAN E Ot 161.1 09/15/2014 [employer], LILLY D Ot 161.1 09/15/2014 [employer] DO, LILLY D Ot V72.63 09/15/2014 [facility], LILLY D Ot V72.84 09/15/2014 SONYA KAYCEE S MEMBERSHIP ADVISOR Ot 161.1 09/15/2014 SONYA TONJA S MEMBERSHIP ADVISOR Ot 196.0 09/15/2014 SONYA TONJA S MEMBERSHIP ADVISOR Ot 250.00 09/15/2014 SONYA TONJA S MEMBERSHIP ADVISOR Ot 305.1 09/15/2014 SONYA TONJA S MEMBERSHIP ADVISOR Ot 401.9 09/15/2014 SONYA TONJA S MEMBERSHIP ADVISOR Ot 414.00 09/15/2014 SONYA KAYCEE S MEMBERSHIP ADVISOR Ot 793.11 09/15/2014 SONYA KAYCEE S MEMBERSHIP ADVISOR Ot V45.81 09/15/2014 SONYA TONJA S MEMBERSHIP ADVISOR Ot V58.67 09/15/2014 SONYA TONJA S MEMBERSHIP ADVISOR Ot V58.69 09/15/2014 SONYA TONJA S MEMBERSHIP ADVISOR Ot 161.1 09/15/2014 SONYA KAYCEE S MEMBERSHIP ADVISOR Ot 196.0 09/15/2014 SONYA KAYCEE S MEMBERSHIP ADVISOR Ot 250.00 09/15/2014 SONYA TONJA S MEMBERSHIP ADVISOR Ot 305.1 09/15/2014 SONYA KAYCEE S MEMBERSHIP ADVISOR Ot 401.9 09/15/2014 SONYA TONJA S MEMBERSHIP ADVISOR Ot 414.00 09/15/2014 SONYA TONJA S MEMBERSHIP ADVISOR Ot 793.11 09/15/2014 SONYA TONJA S MEMBERSHIP ADVISOR Ot V45.81 09/15/2014 SONYA TONJA S MEMBERSHIP ADVISOR Ot V58.67 09/15/2014 SONYA HILAH S MEMBERSHIP ADVISOR Ot V58.69 09/15/2014 SONYA TONJAAH S MEMBERSHIP ADVISOR Ot 161.1 09/15/2014 SONYA KAYCEE S MEMBERSHIP ADVISOR Ot 196.0 09/15/2014 SONYA TONJA S MEMBERSHIP ADVISOR Ot 250.00 09/15/2014 SONYA TONJA S MEMBERSHIP ADVISOR Ot 305.1 09/15/2014 TONJA HASSAN S MEMBERSHIP ADVISOR Ot 401.9 09/15/2014 [facility] S MEMBERSHIP ADVISOR Ot 414.00 09/15/2014 [facility] S MEMBERSHIP ADVISOR Ot 793.11 09/15/2014 [facility] MEMBERSHIP ADVISOR Ot V45.81 09/15/2014 [facility] S MEMBERSHIP ADVISOR Ot V58.67 09/15/2014 [facility]YA [facility] S MEMBERSHIP ADVISOR Ot V58.69 09/15/2014 [facility] S MEMBERSHIP ADVISOR Ot 161.1 09/15/2014 [facility] S MEMBERSHIP ADVISOR Ot 196.0 09/15/2014 [facility] S MEMBERSHIP ADVISOR Ot 250.00 09/15/2014 [facility] S MEMBERSHIP ADVISOR Ot 305.1 09/15/2014 [facility] S MEMBERSHIP ADVISOR Ot 401.9 09/15/2014 [facility] S MEMBERSHIP ADVISOR Ot 414.00 09/15/2014 [facility] S MEMBERSHIP ADVISOR Ot 793.11 09/15/2014 [facility] S MEMBERSHIP ADVISOR Ot V45.81 09/15/2014 [facility] S MEMBERSHIP ADVISOR Ot V58.67 09/15/2014 [facility] S MEMBERSHIP ADVISOR Ot V58.69 09/15/2014 [facility] S MEMBERSHIP ADVISOR Ot 161.1 09/15/2014 [facility] S MEMBERSHIP ADVISOR Ot 196.0 09/15/2014 [facility] S MEMBERSHIP ADVISOR Ot 250.00 09/15/2014 [facility] S MEMBERSHIP ADVISOR Ot 305.1 09/15/2014 [facility] S MEMBERSHIP ADVISOR Ot 401.9 09/15/2014 [facility] S MEMBERSHIP ADVISOR Ot 414.00 09/15/2014 [facility] S MEMBERSHIP ADVISOR Ot 793.11 09/15/2014 [facility] S MEMBERSHIP ADVISOR Ot V45.81 09/15/2014 [facility] S MEMBERSHIP ADVISOR Ot V58.67 09/15/2014 [facility] S MEMBERSHIP ADVISOR Ot V58.69 09/15/2014 [facility] S MEMBERSHIP ADVISOR Ot 161.1 09/15/2014 [facility] S MEMBERSHIP ADVISOR Ot 196.0 09/15/2014 [facility] S MEMBERSHIP ADVISOR Ot 250.00 09/15/2014 HASSANKAYCEE Marinelli S MEMBERSHIP ADVISOR Ot 305.1 09/15/2014 HASSANKAYCEE S MEMBERSHIP ADVISOR Ot 401.9 09/15/2014 HASSANKAYCEE Marinelli S MEMBERSHIP ADVISOR Ot 414.00 09/15/2014 HASSANKAYCEE Marinelli S MEMBERSHIP ADVISOR Ot 496 09/15/2014 HASSANKAYCEE Marinelli S MEMBERSHIP ADVISOR Ot 793.11 09/15/2014 HASSANKAYCEE S MEMBERSHIP ADVISOR Ot V45.81 09/15/2014 HASSANKAYCEE S MEMBERSHIP ADVISOR Ot V58.67 09/15/2014 HASSANKAYCEE Marinelli S MEMBERSHIP ADVISOR Ot V58.69 09/15/2014 POWER, BOBAN N Ot 161.1 09/15/2014 POWER BOBAN N Ot 496 09/15/2014 POWERPIOTR PHILLIPSAN N Ot 787.20 09/15/2014 POWERSALOME PHILLIPS N Ot 161.1 09/15/2014 ZAK BUCIO MEMBERSHIP ADVISOR Ot 250.02 09/15/2014 HASSANKAYCEE S MEMBERSHIP ADVISOR Ot 161.1 09/15/2014 HASSANKAYCEE Marinelli S MEMBERSHIP ADVISOR Ot 196.0 09/15/2014 HASSANKAYCEE Marinelli S MEMBERSHIP ADVISOR Ot 250.00 09/15/2014 HASSANKAYCEE Marinelli S MEMBERSHIP ADVISOR Ot 305.1 09/15/2014 HASASNKAYCEE Marinelli S MEMBERSHIP ADVISOR Ot 401.9 09/15/2014 HASSANKAYCEE S MEMBERSHIP ADVISOR Ot 414.00 09/15/2014 SONYA KAYCEE S MEMBERSHIP ADVISOR Ot 496 09/15/2014 SONYA KAYCEE S MEMBERSHIP ADVISOR Ot 793.11 09/15/2014 HASSANKAYCEE Marinelli S MEMBERSHIP ADVISOR Ot V45.81 09/15/2014 HASSANKAYCEE Marinelli S MEMBERSHIP ADVISOR Ot V58.67 09/15/2014 HASSANKAYCEE S MEMBERSHIP ADVISOR Ot V58.69 09/15/2014 HASSANTONJA S MEMBERSHIP ADVISOR Ot 161.1 09/15/2014 HASSANKAYCEE S MEMBERSHIP ADVISOR Ot 196.0 09/15/2014 SONYA KAYCEE S MEMBERSHIP ADVISOR Ot 250.00 09/15/2014 HASSAN, KAYCEE S MEMBERSHIP ADVISOR Ot 305.1 09/15/2014 HASSAN, KAYCEE S MEMBERSHIP ADVISOR Ot 401.9 09/15/2014 HASSANKAYCEE Marinelli S MEMBERSHIP ADVISOR Ot 414.00 09/15/2014 HASSANKAYCEE Marinelli S MEMBERSHIP ADVISOR Ot 496 09/15/2014 HASSANKAYCEE Marinelli S MEMBERSHIP ADVISOR Ot 793.11 09/15/2014 HASSANKAYCEE Marinelli S MEMBERSHIP ADVISOR Ot V45.81 09/15/2014 HASSANKAYCEE Marinelli S MEMBERSHIP ADVISOR Ot V58.67 09/15/2014 HASSANKAYCEE S MEMBERSHIP ADVISOR Ot V58.69 09/15/2014 SONYAKAYCEE S MEMBERSHIP ADVISOR Ot 161.1 09/15/2014 SERGEI CUTLER, STEF P Ot 793.19 09/15/2014 SERGEI CUTLER, STEF P Ot V72.63 09/15/2014 SERGEI CUTLER, STEF P Ot V72.81 09/15/2014 SERGEI CUTLER, STEF P Ot V74.8 09/15/2014 CLAUDIA CUTLER, KYLIE Dawson Ot 272.4 09/15/2014 CLAUDIA CUTLER, KYLIE J Ot 401.9 09/15/2014 CLAUDIA CUTLER, KYLIE J Ot 414.00 09/15/2014 HASSANKAYCEE Marinelli S MEMBERSHIP ADVISOR Ot 161.1 09/15/2014 HASSANKAYCEE Marinelli S MEMBERSHIP ADVISOR Ot 196.0 09/15/2014 HASSANKAYCEE S MEMBERSHIP ADVISOR Ot 250.00 09/15/2014 HASSANKAYCEE Marinelli S MEMBERSHIP ADVISOR Ot 305.1 09/15/2014 HASSANKAYCEE Marinelli S MEMBERSHIP ADVISOR Ot 401.9 09/15/2014 HASSANKAYCEE Marinelli S MEMBERSHIP ADVISOR Ot 414.00 09/15/2014 HASSAN KAYCEE S MEMBERSHIP ADVISOR Ot 496 09/15/2014 HASSANKAYCEE Marinelli S MEMBERSHIP ADVISOR Ot 793.11 09/15/2014 HASSANKAYCEE Marinelli S MEMBERSHIP ADVISOR Ot V45.81 09/15/2014 HASSANKAYCEE Marinelli S MEMBERSHIP ADVISOR Ot V58.67 09/15/2014 HASSANKAYCEE Marinelli S MEMBERSHIP ADVISOR Ot V58.69 09/15/2014 HASSANKAYCEE Marinelli S MEMBERSHIP ADVISOR Ot 161.1 09/15/2014 HASSANKAYCEE Marinelli S MEMBERSHIP ADVISOR Ot 196.0 09/15/2014 SONYA KAYCEE S MEMBERSHIP ADVISOR Ot 250.00 09/15/2014 SONYA KAYCEE S MEMBERSHIP ADVISOR Ot 305.1 09/15/2014 SONYA KAYCEE S MEMBERSHIP ADVISOR Ot 401.9 09/15/2014 KAYCEE HASSAN MEMBERSHIP ADVISOR Ot 414.00 09/15/2014 HASSANKAYCEE Marinelli MEMBERSHIP ADVISOR Ot 496 09/15/2014 KAYCEE HASSAN MEMBERSHIP ADVISOR Ot 793.11 09/15/2014 KAYCEE HASSAN MEMBERSHIP ADVISOR Ot V45.81 09/15/2014 HASSANKAYCEE Marinelli MEMBERSHIP ADVISOR Ot V58.67 09/15/2014 HASSANKAYCEE Marinelli MEMBERSHIP ADVISOR Ot V58.69 09/15/2014 HASSANKAYCEE Marinelli S MEMBERSHIP ADVISOR Ot V58.81 09/15/2014 HASSANKAYCEE Marinelli MEMBERSHIP ADVISOR Ot 141.9 09/15/2014 HASSANKAYCEE Marinelli MEMBERSHIP ADVISOR Ot 793.11 09/15/2014 Ot 786.6 09/15/2014 Ot V72.63 09/15/2014 Ot V72.81 09/15/2014 Ot V72.83 09/15/2014 POWER, BOBAN N Ot 161.1 09/15/2014 POWER, BOBAN N Ot 196.0 09/15/2014 POWER, BOBAN N Ot 250.00 09/15/2014 POWER, BOBAN N Ot 305.1 09/15/2014 POWER, BOBAN N Ot 401.9 09/15/2014 POWER, BOBAN N Ot 414.00 09/15/2014 POWER, BOBAN N Ot 793.11 09/15/2014 POWER, BOBAN N Ot V45.81 09/15/2014 POWER, BOBAN N Ot V58.67 09/15/2014 POWER, BOBAN N Ot V58.69 09/15/2014 POWER, BOBAN N Ot V58.81 09/15/2014 POWER, BOBAN N Ot 161.1 09/15/2014 POWER, BOBAN N Ot 196.0 09/15/2014 POWER, BOBAN N Ot 250.00 09/15/2014 POWER, BOBAN N Ot 305.1 09/15/2014 POWER, BOBAN N Ot 401.9 09/15/2014 POWER, BOBAN N Ot 414.00 09/15/2014 POWER, BOBAN N Ot 793.11 09/15/2014 POWER, BOBAN N Ot V45.81 09/15/2014 POWER, BOBAN N Ot V58.67 09/15/2014 POWER, BOBAN N Ot V58.69 09/15/2014 POWER, BOBAN N Ot V58.81 09/16/2014 POWER, BOBAN N Ot 161.1 09/16/2014 POWER, BOBAN N Ot 196.0 09/16/2014 POWER, BOBAN N Ot 250.00 09/16/2014 POWER, BOBAN N Ot 305.1 09/16/2014 POWER, BOBAN N Ot 401.9 09/16/2014 POWER, BOBAN N Ot 414.00 09/16/2014 POWER, BOBAN N Ot 793.11 09/16/2014 POWER, BOBAN N Ot V45.81 09/16/2014 POWER, BOBAN N Ot V58.67 09/16/2014 POWER, BOBAN N Ot V58.69 09/16/2014 POWER, BOBAN N Ot V58.81 10/16/2014 JASKARAN CUTLER, DARIAN Ot 162.9 10/16/2014 JASKARAN CUTLER, DARIAN Ot 414.01 10/16/2014 JASKARAN CUTLER, DARIAN Ot 782.3 11/12/2014 JASKARAN CUTLER, DARIAN Ot 162.9 11/12/2014 VENU CUTLER, DARIAN Ot 414.01 11/12/2014 JASKARAN CUTLER, DARIAN Ot 782.3 11/23/2014 POWER, BOBAN N Ot 161.1 11/23/2014 POWER, BOBAN N Ot 196.0 11/23/2014 POWER, BOBAN N Ot 250.00 11/23/2014 POWER, BOBAN N Ot 305.1 11/23/2014 POWER, BOBAN N Ot 401.9 11/23/2014 POWER, BOBAN N Ot 414.00 11/23/2014 POWER, BOBAN N Ot 793.11 11/23/2014 POWER, BOBAN N Ot V45.81 11/23/2014 POWER, BOBAN N Ot V58.67 11/23/2014 POWER, BOBAN N Ot V58.69 12/14/2014 POWER, BOBAN N Ot 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 12/14/2014 POWER, BOBAN N Ot 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 12/14/2014 POWER, BOBAN N Ot 250.00 DIAB OLU WO COMPL, TYPE II OR UNSPEC TY 12/14/2014 POWER, BOBAN N Ot 305.1 TOBACCO USE DISORDER 12/14/2014 POWER, BOBAN N Ot 401.9 HYPERTENSION NOS 12/14/2014 POWER, BOBAN N Ot 414.00 CORON ATHEROSCLER NOS TYPE VESSEL, NATIV 12/14/2014 POWERPIOTR PHILLIPSAN N Ot 793.11 SOLITARY PULMONARY NODULE 12/14/2014 POWERSALOME PHILLIPS N Ot V45.81 AORTOCORONARY BYPASS 12/14/2014 POWER, BOBAN N Ot V58.67 LONG-TERM (CURRENT) USE OF INSULIN 12/14/2014 POWER BOBAN N Ot V58.69 OTH MED,LT,CURRENT USE 12/14/2014 POWER BOBAN N Ot V58.81 FIT/ADJ VASCULAR CATHETER 12/15/2014 POWER, BOBAN N Ot 161.1 12/15/2014 POWER, BOBAN N Ot 196.0 12/15/2014 POWER, BOBAN N Ot 250.00 12/15/2014 POWER, BOBAN N Ot 305.1 12/15/2014 POWER, BOBAN N Ot 401.9 12/15/2014 POWER, BOBAN N Ot 414.00 12/15/2014 POWER, BOBAN N Ot 793.11 12/15/2014 POWER, BOBAN N Ot V45.81 12/15/2014 POWER, BOBAN N Ot V58.67 12/15/2014 POWER, BOBAN N Ot V58.69 12/15/2014 POWER, BOBAN N Ot 161.1 12/15/2014 POWER, BOBAN N Ot 196.0 12/15/2014 POWER, BOBAN N Ot 250.00 12/15/2014 POWER, BOBAN N Ot 305.1 12/15/2014 POWER, BOBAN N Ot 401.9 12/15/2014 POWER, BOBAN N Ot 414.00 12/15/2014 POWER, BOBAN N Ot 793.11 12/15/2014 POWER, BOBAN N Ot V45.81 12/15/2014 POWER, BOBAN N Ot V58.67 12/15/2014 POWER, BOBAN N Ot V58.69 12/19/2014 POWER, BOBAN N Ot 161.1 12/19/2014 POWER, BOBAN N Ot 196.0 12/19/2014 POWER, BOBAN N Ot 250.00 12/19/2014 POWER, BOBAN N Ot 305.1 12/19/2014 POWER, BOBAN N Ot 401.9 12/19/2014 POWER, BOBAN N Ot 414.00 12/19/2014 POWER, BOBAN N Ot 793.11 12/19/2014 POWER, BOBAN N Ot V45.81 12/19/2014 POWER, BOBAN N Ot V58.67 12/19/2014 POWER, BOBAN N Ot V58.69 12/20/2014 POWER, BOBAN N Ot 161.1 12/20/2014 POWER, BOBAN N Ot 196.0 12/20/2014 POWER, BOBAN N Ot 250.00 12/20/2014 POWER, BOBAN N Ot 305.1 12/20/2014 POWER, BOBAN N Ot 401.9 12/20/2014 POWER, BOBAN N Ot 414.00 12/20/2014 POWER, BOBAN N Ot 793.11 12/20/2014 POWER, BOBAN N Ot V45.81 12/20/2014 POWER, BOBAN N Ot V58.67 12/20/2014 POWER, BOBAN N Ot V58.69 12/21/2014 CLAUDIA CUTLER, KYLIE Dawson Ot 250.00 12/21/2014 CLAUDIA CUTLER, KYLIE Dawson Ot 401.9 12/21/2014 CLAUDIA CUTLER, KYLIE J Ot 414.00 12/21/2014 CLAUDIA CUTLER, KYLIE J Ot 428.0 12/21/2014 CLAUDIA CUTLER, KYLIE Dawson Ot V58.67 12/21/2014 POWER, BOBAN N Ot 793.11 12/30/2014 POWER, BOBAN N Ot 793.11 12/30/2014 CLAUDIA CUTLER, KYLIE Dawson Ot 250.00 12/30/2014 CLAUDIA CUTLER, KYLIE Dawson Ot 401.9 12/30/2014 CLAUDIA CUTLER, KYLIE J Ot 414.00 12/30/2014 CLAUDIA CUTLER, KYLIE Dawson Ot 428.0 12/30/2014 CLAUDIA KYLIE CUTLER Ot V58.67 01/10/2015 POWER, BOBAN N Ot 161.1 01/10/2015 POWER, BOBAN N Ot 196.0 01/10/2015 POWER, BOBAN N Ot 250.00 01/10/2015 POWER, BOBAN N Ot 305.1 01/10/2015 POWER, BOBAN N Ot 401.9 01/10/2015 POWER, BOBAN N Ot 414.00 01/10/2015 POWER, BOBAN N Ot 793.11 01/10/2015 POWER, BOBAN N Ot V45.81 01/10/2015 POWER, BOBAN N Ot V58.67 01/10/2015 POWER, BOBAN N Ot V58.69 01/31/2015 POWER, BOBAN N Ot 161.1 01/31/2015 POWER, BOBAN N Ot 196.0 01/31/2015 POWER, BOBAN N Ot 250.00 01/31/2015 POWER, BOBAN N Ot 305.1 01/31/2015 POWER, BOBAN N Ot 401.9 01/31/2015 POWER, BOBAN N Ot 414.00 01/31/2015 POWER, BOBAN N Ot 793.11 01/31/2015 POWER, BOBAN N Ot V45.81 01/31/2015 POWER, BOBAN N Ot V58.67 01/31/2015 POWER, BOBAN N Ot V58.69 03/07/2015 KAYCEE HASSAN MEMBERSHIP ADVISOR Ot 162.9 03/07/2015 POWER, BOBAN N Ot 161.1 03/07/2015 POWER, BOBAN N Ot 196.0 03/07/2015 POWER, BOBAN N Ot 250.00 03/07/2015 POWER, BOBAN N Ot 305.1 03/07/2015 POWER, BOBAN N Ot 401.9 03/07/2015 POWER, BOBAN N Ot 414.00 03/07/2015 POWER, BOBAN N Ot 793.11 03/07/2015 POWER, BOBAN N Ot V45.81 03/07/2015 POWER, BOBAN N Ot V58.67 03/07/2015 POWER, BOBAN N Ot V58.69 03/15/2015 POWER, BOBAN N Ot 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 03/15/2015 POWER, SALOME N Ot 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 03/15/2015 POWER, PIOTRAN N Ot 250.00 DIAB OLU WO COMPL, TYPE II OR UNSPEC TY 03/15/2015 POWER BOBAN N Ot 305.1 TOBACCO USE DISORDER 03/15/2015 POWERPIOTR PHILLIPSAN N Ot 401.9 HYPERTENSION NOS 03/15/2015 POWERSALOME PHILLIPS N Ot 414.00 CORON ATHEROSCLER NOS TYPE VESSEL, NATIV 03/15/2015 POWERSALOME N Ot 793.11 SOLITARY PULMONARY NODULE 03/15/2015 POWERSALOME PHILLIPS N Ot V45.81 AORTOCORONARY BYPASS 03/15/2015 POWERSALOME PHILLIPS N Ot V58.67 LONG-TERM (CURRENT) USE OF INSULIN 03/15/2015 SALOME STEVE N Ot V58.69 OTH MED,LT,CURRENT USE 03/15/2015 POWERSALOME PHILLIPS N Ot V58.81 FIT/ADJ VASCULAR CATHETER 03/17/2015 SALOME STEVE N Ot 161.1 03/17/2015 POWER, BOBAN N Ot 196.0 03/17/2015 POWER, BOBAN N Ot 250.00 03/17/2015 POWER BOBBRANDO N Ot 305.1 03/17/2015 POWER BOBBRANDO N Ot 401.9 03/17/2015 POWER, BOBAN N Ot 414.00 03/17/2015 POWER, BOBBRANDO N Ot 793.11 03/17/2015 POWER BOBBRANDO N Ot V45.81 03/17/2015 POWER BOBAN N Ot V58.67 03/17/2015 POWER BOBAN N Ot V58.69 03/20/2015 KAYCEE HASSAN MEMBERSHIP ADVISOR Ot 162.9 04/06/2015 KAYCEE HASSAN MEMBERSHIP ADVISOR Ot C34.90 04/07/2015 KAYCEE HASSAN MEMBERSHIP ADVISOR Ot C32.1 04/07/2015 KAYCEE HASSAN MEMBERSHIP ADVISOR Ot Z12.31 06/02/2015 POWER, PIOTRAN N Ot 161.1 06/02/2015 POWER, BOBAN N Ot 196.0 06/02/2015 POWER, BOBAN N Ot 250.00 06/02/2015 POWER, BOBAN N Ot 305.1 06/02/2015 POWERSALOME PHILLIPS N Ot 401.9 06/02/2015 POWERSALOME PHILLIPS N Ot 414.00 06/02/2015 POWERSALOME PHILLIPS N Ot 793.11 06/02/2015 POWERSALOME PHILLIPS N Ot V45.81 06/02/2015 POWERSALOME PHILLIPS N Ot V58.67 06/02/2015 POWERSALOME PHILLIPS N Ot V58.69 06/15/2015 KAYCEE HASSANP Ot C32.1 06/15/2015 KAYCEE HASSANP Ot Z12.31 06/18/2015 POWERSALOME PHILLIPS N Ot 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 OF SUPRAGLOTTIS 06/18/2015 SALOME STEVE N Ot C34.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 NEOPLASM OF UPPER LOBE, LEFT B 06/18/2015 SALOME STEVE N Ot F17.210 NICOTINE DEPENDENCE, CIGARETTES, UNCOMPL 06/18/2015 SALOME STEVE N Ot Z79.899 OTHER BOOKSEAMER BLINDSTITCH (CURRENT) DRUG THERAPY 06/18/2015 SALOME STEVE N Ot Z92.21 PERSONAL HISTORY OF ANTINEOPLASTIC CHEMO 06/18/2015 SALOME STEVE N Ot Z92.3 PERSONAL HISTORY OF IRRADIATION 06/20/2015 POWERSALOME PHILLIPS N Ot 161.1 06/20/2015 POWERSALOME PHILLIPS N Ot 162.3 06/20/2015 POWERSALOME PHILLIPS N Ot 305.1 06/20/2015 POWERSALOME PHILLIPS N Ot C32.1 06/20/2015 POWERSALOME PHILLIPS N Ot C34.12 06/20/2015 POWERSALOME PHILLIPS N Ot F17.210 06/20/2015 POWERSALOME N Ot V15.3 06/20/2015 POWERSALOME N Ot V58.69 06/20/2015 POWERSALOME N Ot V87.41 06/20/2015 POWER, BOBBRANDO N Ot Z79.899 06/20/2015 POWER BOBBRANDO N Ot Z92.21 06/20/2015 POWER, SALOME N Ot Z92.3 06/26/2015 KAYCEE HASSAN MEMBERSHIP ADVISOR Ot C32.1 07/11/2015 LILLY LEE DO Ot K38.1 APPENDICULAR CONCRETIONS 07/11/2015 LILLY LEE DO Ot K62.1 RECTAL POLYP 07/11/2015 LEE LILLY BIRD Ot K63.5 POLYP OF COLON 07/11/2015 LEE LILLY BIRD Ot Z12.11 ENCOUNTER FOR SCREENING FOR MALIGNANT NE 08/08/2015 POWERSALOME Ot 161.1 08/08/2015 POWERSALOME Ot 162.3 08/08/2015 POWERSALOME Ot 305.1 08/08/2015 POWERSALOME Ot C32.1 08/08/2015 POWERSALOME Ot C34.12 08/08/2015 POWERSALOME Ot F17.210 08/08/2015 POWERSALOME Ot V15.3 08/08/2015 POWERSALOME Ot V58.69 08/08/2015 POWERSALOME Ot V87.41 08/08/2015 SALOME STEVE Ot Z79.899 08/08/2015 POWERSALOME Ot Z92.21 08/08/2015 POWERSALOME Ot Z92.3 09/17/2015 POWERSALOME Ot 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 OF SUPRAGLOTTIS 09/17/2015 SALOME STEVE Ot C34.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 NEOPLASM OF UPPER LOBE, LEFT B 09/17/2015 POWERSALOME Ot F17.210 NICOTINE DEPENDENCE, CIGARETTES, UNCOMPL 09/17/2015 SALOME STEVE Ot Z45.2 ENCOUNTER FOR ADJUSTMENT AND MANAGEMENT 09/17/2015 SALOME STEVE Ot Z79.899 OTHER ALF (CURRENT) DRUG THERAPY 09/17/2015 SALOME STEVE Ot Z92.21 PERSONAL HISTORY OF ANTINEOPLASTIC CHEMO 09/17/2015 SALOME STEVE Ot Z92.3 PERSONAL HISTORY OF IRRADIATION 09/18/2015 SALOME STEVE Ot C32.1 09/18/2015 SALOME STEVE Ot C34.12 09/18/2015 POWERSALOME PHILLIPS Ot F17.210 09/18/2015 SALOME STEVE Ot Z79.899 09/18/2015 SALOME STEVE N Ot Z92.21 09/18/2015 SALOME STEVE Ot Z92.3 10/09/2015 SALOME STEVE Miguel A Ot 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 10/09/2015 SALOME STEVE Miguel A Ot 162.3 MAL HILARIO UPPER LOBE LUNG 10/09/2015 SALOME STEVE Miguel A Ot 305.1 TOBACCO USE DISORDER 10/09/2015 SALOME STEVE Miguel A Ot 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 OF SUPRAGLOTTIS 10/09/2015 SALOME STEVE Miguel A Ot C34.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 NEOPLASM OF UPPER LOBE, LEFT B 10/09/2015 SALOME STEVE Miguel A Ot F17.210 NICOTINE DEPENDENCE, CIGARETTES, UNCOMPL 10/09/2015 SALOME STEVE Miguel A Ot V15.3 HX OF IRRADIATION 10/09/2015 SALOME STEVE Miguel A Ot V58.69 OTH MED,LT,CURRENT USE 10/09/2015 SALOME STEVE Miguel A Ot V87.41 PERSONAL HISTORY OF ANTINEOPLASTIC CHEMO 10/09/2015 SALOME STEVE Miguel A Ot Z79.899 OTHER ALF (CURRENT) DRUG THERAPY 10/09/2015 SALOME STEVE Miguel A Ot Z92.21 PERSONAL HISTORY OF ANTINEOPLASTIC CHEMO 10/09/2015 SALOME STEVE Miguel A Ot Z92.3 PERSONAL HISTORY OF IRRADIATION 11/02/2015 LILLY LEE DO Ot D17.1 BENIGN LIPOMATOUS NEOPLASM OF SKIN, SUBC 11/02/2015 LILLY LEE DO Ot L98.9 DISORDER OF THE SKIN AND SUBCUTANEOUS TI 11/02/2015 LILLY LEE DO Ot Z01.818 ENCOUNTER FOR OTHER PREPROCEDURAL EXAMIN 11/02/2015 LILLY LEE DO Ot Z11.2 ENCOUNTER FOR SCREENING FOR OTHER BACTER 11/02/2015 LILLY LEE DO Ot Z86.010 PERSONAL HISTORY OF COLONIC POLYPS 11/04/2015 LILLY LEE DO Ot D17.1 BENIGN LIPOMATOUS NEOPLASM OF SKIN, SUBC 11/04/2015 LILLY LEE DO Ot L98.9 DISORDER OF THE SKIN AND SUBCUTANEOUS TI 11/04/2015 LILLY LEE DO Ot Z01.818 ENCOUNTER FOR OTHER PREPROCEDURAL EXAMIN 11/04/2015 LILLY LEE DO Ot Z11.2 ENCOUNTER FOR SCREENING FOR OTHER BACTER 11/04/2015 LILLY LEE DO Ot Z86.010 PERSONAL HISTORY OF COLONIC POLYPS 11/08/2015 SALOME STEVE Miguel A Ot 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 OF SUPRAGLOTTIS 11/08/2015 POWER SALOME Grady Ot C34.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 NEOPLASM OF UPPER LOBE, LEFT B 11/08/2015 SALOME STEVE Miguel A Ot F17.210 NICOTINE DEPENDENCE, CIGARETTES, UNCOMPL 11/08/2015 SALOME STEVE Miguel A Ot Z79.899 OTHER [employer] BL[employer]STITCH (CURRENT) DRUG THERAPY 11/08/2015 SALOME STEVE Miguel A Ot Z92.21 PERSONAL HISTORY OF ANTINEOPLASTIC CHEMO 11/08/2015 POWER PIOTRBRANDO Miguel A Ot Z92.3 PERSONAL HISTORY OF IRRADIATION 11/09/2015 LILLY LEE DO Ot D12.8 BENIGN NEOPLASM OF RECTUM 11/09/2015 LILLY LEE DO Ot D17.1 BENIGN LIPOMATOUS NEOPLASM OF SKIN, SUBC 11/09/2015 LILLY LEE DO Ot K62.1 RECTAL POLYP 11/09/2015 LILLY LEE DO Ot L98.9 DISORDER OF THE SKIN AND SUBCUTANEOUS TI 11/24/2015 LILIAN TREJO DO Ot 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 OF SUPRAGLOTTIS 11/24/2015 LILIAN TREJO DO Ot C34.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 NEOPLASM OF UPPER LOBE, LEFT B 11/27/2015 LILLY LEE DO Ot D12.8 BENIGN NEOPLASM OF RECTUM 11/27/2015 LILLY LEE DO Ot D17.1 BENIGN LIPOMATOUS NEOPLASM OF SKIN, SUBC 11/27/2015 POWER SALOME Grady Ot 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 OF SUPRAGLOTTIS 11/27/2015 POWER, SALOME Grady Ot C34.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 NEOPLASM OF UPPER LOBE, LEFT B 11/27/2015 SALOME STEVE Miguel A Ot F17.210 NICOTINE DEPENDENCE, CIGARETTES, UNCOMPL 11/27/2015 SALOME STEVE Miguel A Ot Z79.899 OTHER ALF (CURRENT) DRUG THERAPY 11/27/2015 SALOME STEVE Miguel A Ot Z92.21 PERSONAL HISTORY OF ANTINEOPLASTIC CHEMO 11/27/2015 POWER PIOTRBRANDO Miguel A Ot Z92.3 PERSONAL HISTORY OF IRRADIATION 12/07/2015 LILIAN TREJO DO Ot 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 OF SUPRAGLOTTIS 12/07/2015 GRISEL TREJO DOSON M Ot C34.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 NEOPLASM OF UPPER LOBE, LEFT B 12/15/2015 NEIL DOLLIIAN M Ot 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 OF SUPRAGLOTTIS 12/15/2015 NEIL DOLILIAN M Ot C34.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 NEOPLASM OF UPPER LOBE, LEFT B 12/17/2015 NEIL DO, LILIAN M Ot 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 OF SUPRAGLOTTIS 12/17/2015 NEIL DOLILIAN M Ot C34.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 NEOPLASM OF UPPER LOBE, LEFT B 12/29/2015 NEIL DO, LILIAN M Ot 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 OF SUPRAGLOTTIS 12/29/2015 NEIL DO, LILIAN M Ot C34.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 NEOPLASM OF UPPER LOBE, LEFT B 01/02/2016 PIOTR STEVEBRANDO Grady Ot 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 OF SUPRAGLOTTIS 01/07/2016 POWER SALOME Grady Ot 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 OF SUPRAGLOTTIS 01/07/2016 POWER SALOME Grady Ot C34.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 NEOPLASM OF UPPER LOBE, LEFT B 01/07/2016 POWER SALOME Grady Ot F17.210 NICOTINE DEPENDENCE, CIGARETTES, UNCOMPL 01/07/2016 POWER SALOME Grady Ot Z79.899 OTHER ALF (CURRENT) DRUG THERAPY 01/07/2016 POWER SALOME Grady Ot Z92.21 PERSONAL HISTORY OF ANTINEOPLASTIC CHEMO 01/07/2016 POWER, SALOME N Ot Z92.3 PERSONAL HISTORY OF IRRADIATION 01/13/2016 POWERSALOME Ot 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 OF SUPRAGLOTTIS 01/13/2016 POWERSALOME Ot C34.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 NEOPLASM OF UPPER LOBE, LEFT B 01/13/2016 POWER SALOME Grady Ot F17.210 NICOTINE DEPENDENCE, CIGARETTES, UNCOMPL 01/13/2016 POWER SALOME Grady Ot Z79.899 OTHER ALF (CURRENT) DRUG THERAPY 01/13/2016 POWER SALOME Grady Ot Z92.21 PERSONAL HISTORY OF ANTINEOPLASTIC CHEMO 01/13/2016 POWER, SALOME N Ot Z92.3 PERSONAL HISTORY OF IRRADIATION 01/18/2016 SALOME STEVE Ot 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 OF SUPRAGLOTTIS 02/15/2016 POWERSALOME Ot 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 OF SUPRAGLOTTIS 02/15/2016 SALOME STEVE N Ot C34.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 NEOPLASM OF UPPER LOBE, LEFT B 02/15/2016 SALOME STEVE Ot F17.210 NICOTINE DEPENDENCE, CIGARETTES, UNCOMPL 02/15/2016 SALOME STEVE N Ot Z79.899 OTHER ALF (CURRENT) DRUG THERAPY 02/15/2016 SALOME STEVE N Ot Z92.21 PERSONAL HISTORY OF ANTINEOPLASTIC CHEMO 02/15/2016 SALOME STEVE N Ot Z92.3 PERSONAL HISTORY OF IRRADIATION 03/10/2016 LILIAN TREJO DO Ot 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 OF SUPRAGLOTTIS 03/10/2016 LILIAN TREJO DO Ot C34.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 NEOPLASM OF UPPER LOBE, LEFT B 03/12/2016 SALOME STEVE Miguel A Ot 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 OF SUPRAGLOTTIS 03/12/2016 SALOME STEVE Miguel A Ot C34.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 NEOPLASM OF UPPER LOBE, LEFT B 03/12/2016 SALOME STEVE Miguel A Ot F17.210 NICOTINE DEPENDENCE, CIGARETTES, UNCOMPL 03/12/2016 SALOME STEVE Ot Z45.2 ENCOUNTER FOR ADJUSTMENT AND MANAGEMENT 03/12/2016 SALOME STEVE N Ot Z79.899 OTHER ALF (CURRENT) DRUG THERAPY 03/12/2016 SALOME STEVE Ot Z92.21 PERSONAL HISTORY OF ANTINEOPLASTIC CHEMO 03/12/2016 SALOME STEVE N Ot Z92.3 PERSONAL HISTORY OF IRRADIATION 03/15/2016 ETHAN RODRIGES APRN Ot F17.210 NICOTINE DEPENDENCE, CIGARETTES, UNCOMPL 03/15/2016 ETHAN RODRIGES FURNITURE MOVER HELPER Ot K85.9 ACUTE PANCREATITIS, UNSPECIFIED 03/15/2016 ETHAN RODRIGES FURNITURE MOVER HELPER Ot R10.13 EPIGASTRIC PAIN 03/15/2016 ETHAN RODRIGES APRN Ot Z79.82 BOOKSEAMER BLINDSTITCH (CURRENT) USE OF ASPIRIN 03/15/2016 ETHAN RODRIGES APRN Ot Z79.899 OTHER ALF (CURRENT) DRUG THERAPY 03/15/2016 ETHAN RODRIGES APRN Ot Z95.1 PRESENCE OF AORTOCORONARY BYPASS GRAFT 03/22/2016 POWER, SALOME Grady Ot 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 OF SUPRAGLOTTIS 03/22/2016 ASLOME STEVE Miguel A Ot C34.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 NEOPLASM OF UPPER LOBE, LEFT B 03/22/2016 SALOME STEVE Miguel A Ot F17.210 NICOTINE DEPENDENCE, CIGARETTES, UNCOMPL 03/22/2016 SALOME STEVE Miguel A Ot Z45.2 ENCOUNTER FOR ADJUSTMENT AND MANAGEMENT 03/22/2016 SALOME STEVE Miguel A Ot Z79.899 OTHER BOOKSEAMER BLINDSTITCH (CURRENT) DRUG THERAPY 03/22/2016 SALOME STEVE Miguel A Ot Z92.21 PERSONAL HISTORY OF ANTINEOPLASTIC CHEMO 03/22/2016 POWER SALOME N Ot Z92.3 PERSONAL HISTORY OF IRRADIATION 03/25/2016 ETHAN RODRIGES FURNITURE MOVER HELPER Ot F17.210 NICOTINE DEPENDENCE, CIGARETTES, UNCOMPL 03/25/2016 ETHAN RODRIGES FURNITURE MOVER HELPER Ot K85.9 ACUTE PANCREATITIS, UNSPECIFIED 03/25/2016 ETHAN RODRIGES FURNITURE MOVER HELPER Ot R10.13 EPIGASTRIC PAIN 03/25/2016 ETHAN RODRIGES FURNITURE MOVER HELPER Ot Z79.82 BOOKSEAMER BLINDSTITCH (CURRENT) USE OF ASPIRIN 03/25/2016 ETHAN RODRIEGS FURNITURE MOVER HELPER Ot Z79.899 OTHER ALF (CURRENT) DRUG THERAPY 03/25/2016 ETHAN RODRIGES FURNITURE MOVER HELPER Ot Z95.1 PRESENCE OF AORTOCORONARY BYPASS GRAFT 04/03/2016 POWER, SALOME Grady Ot 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 OF SUPRAGLOTTIS 04/03/2016 SALOME STEVE Miguel A Ot C34.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 NEOPLASM OF UPPER LOBE, LEFT B 04/03/2016 SALOME STEVE Miguel A Ot F17.210 NICOTINE DEPENDENCE, CIGARETTES, UNCOMPL 04/03/2016 SALOME STEVE Miguel A Ot Z45.2 ENCOUNTER FOR ADJUSTMENT AND MANAGEMENT 04/03/2016 SALOME STEVE Miguel A Ot Z79.899 OTHER ALF (CURRENT) DRUG THERAPY 04/03/2016 SALOME STEVE N Ot Z92.21 PERSONAL HISTORY OF ANTINEOPLASTIC CHEMO 04/03/2016 POWER, SALOME N Ot Z92.3 PERSONAL HISTORY OF IRRADIATION 04/05/2016 POWER PIOTRBRANDO Miguel A Ot 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 OF SUPRAGLOTTIS 04/05/2016 POWER PIOTRBRANDO Miguel A Ot C34.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 NEOPLASM OF UPPER LOBE, LEFT B 04/05/2016 POWER PIORTBRANDO Miguel A Ot F17.210 NICOTINE DEPENDENCE, CIGARETTES, UNCOMPL 04/05/2016 POWER, SALOME Grady Ot Z79.899 OTHER ALF (CURRENT) DRUG THERAPY 04/05/2016 POWER, SALOME Grady Ot Z92.21 PERSONAL HISTORY OF ANTINEOPLASTIC CHEMO 04/05/2016 SALOME STEVE Ot Z92.3 PERSONAL HISTORY OF IRRADIATION 04/08/2016 ANAIS ANGULO MD Ot 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 OF SUPRAGLOTTIS 04/08/2016 ANAIS ANGULO MD Ot Z09 ENCNTR FOR F/U EXAM AFT TRTMT FOR COND O 04/08/2016 ANAIS ANGULO MD, Ot Z96.89 PRESENCE OF OTHER SPECIFIED FUNCTIONAL I 04/08/2016 KAYCEE HASSAN MEMBERSHIP ADVISOR Ot 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 OF SUPRAGLOTTIS 04/08/2016 KAYCEE HASSAN MEMBERSHIP ADVISOR Ot C34.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 NEOPLASM OF UPPER LOBE, LEFT B 04/08/2016 KAYCEE HASSAN MEMBERSHIP ADVISOR Ot M25.552 PAIN IN LEFT HIP 04/11/2016 ANAIS ANGULO MD Ot 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 OF SUPRAGLOTTIS 04/11/2016 ANAIS ANGULO MD, Ot Z09 ENCNTR FOR F/U EXAM AFT TRTMT FOR COND O 04/11/2016 ANAIS ANGULO MD Ot Z96.89 PRESENCE OF OTHER SPECIFIED FUNCTIONAL I 04/29/2016 KAYCEE HASSAN MEMBERSHIP ADVISOR Ot 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 OF SUPRAGLOTTIS 04/29/2016 KAYCEE HASSAN MEMBERSHIP ADVISOR Ot C34.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 NEOPLASM OF UPPER LOBE, LEFT B 04/29/2016 KAYCEE HASSAN MEMBERSHIP ADVISOR Ot M25.552 PAIN IN LEFT HIP 04/29/2016 ANAIS ANGULO MD Ot 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 OF SUPRAGLOTTIS 04/29/2016 ANAIS ANGULO MD Ot Z09 ENCNTR FOR F/U EXAM AFT TRTMT FOR COND O 04/29/2016 ANAIS ANGULO MD Ot Z96.89 PRESENCE OF OTHER SPECIFIED FUNCTIONAL I 05/03/2016 SALOME STEVE Ot 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 OF SUPRAGLOTTIS 05/03/2016 SALOME STEVE Ot C34.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 NEOPLASM OF UPPER LOBE, LEFT B 05/03/2016 SALOME STEVE Ot F17.210 NICOTINE DEPENDENCE, CIGARETTES, UNCOMPL 05/03/2016 SALOME STEVE Miguel A Ot Z79.899 OTHER BOOKSEAMER BLINDSTITCH (CURRENT) DRUG THERAPY 05/03/2016 SALOME STEVE Miguel A Ot Z92.21 PERSONAL HISTORY OF ANTINEOPLASTIC CHEMO 05/03/2016 SALOME STEVE Miguel A Ot Z92.3 PERSONAL HISTORY OF IRRADIATION 05/03/2016 KAYCEE HASSAN MEMBERSHIP ADVISOR Ot 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 OF SUPRAGLOTTIS 05/03/2016 KAYCEE HASSAN MEMBERSHIP ADVISOR Ot C34.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 NEOPLASM OF UPPER LOBE, LEFT B 05/03/2016 KAYCEE HASSAN MEMBERSHIP ADVISOR Ot M25.552 PAIN IN LEFT HIP 05/03/2016 ANAIS ANGULO MD Ot 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 OF SUPRAGLOTTIS 05/03/2016 ANAIS ANGULO MD Ot Z09 ENCNTR FOR F/U EXAM AFT TRTMT FOR COND O 05/03/2016 ANAIS ANGULO MD Ot Z96.89 PRESENCE OF OTHER SPECIFIED FUNCTIONAL I 05/07/2016 KAYCEE HASSAN MEMBERSHIP ADVISOR Ot 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 OF SUPRAGLOTTIS 05/07/2016 KAYCEE HASSAN MEMBERSHIP ADVISOR Ot C34.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 NEOPLASM OF UPPER LOBE, LEFT B 05/07/2016 KAYCEE HASSAN MEMBERSHIP ADVISOR Ot M25.552 PAIN IN LEFT HIP 05/07/2016 ANAIS ANGULO MD Ot 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 OF SUPRAGLOTTIS 05/07/2016 ANAIS ANGULO MD Ot Z09 ENCNTR FOR F/U EXAM AFT TRTMT FOR COND O 05/07/2016 ANAIS ANGULO MD Ot Z96.89 PRESENCE OF OTHER SPECIFIED FUNCTIONAL I 05/14/2016 SALOME STEVE Miguel A Ot 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 OF SUPRAGLOTTIS 05/14/2016 SALOME STEVE Miguel A Ot C34.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 NEOPLASM OF UPPER LOBE, LEFT B 05/14/2016 SALOME STEVE Miguel A Ot F17.210 NICOTINE DEPENDENCE, CIGARETTES, UNCOMPL 05/14/2016 SALOME STEVE Miguel A Ot Z79.899 OTHER BOOKSEAMER BLINDSTITCH (CURRENT) DRUG THERAPY 05/14/2016 SALOME STEVE Miguel A Ot Z92.21 PERSONAL HISTORY OF ANTINEOPLASTIC CHEMO 05/14/2016 SALOME STEVE Miguel A Ot Z92.3 PERSONAL HISTORY OF IRRADIATION 05/16/2016 NALINI JOHNS DO Ot 246.2 CYST OF THYROID 05/16/2016 NALINI JOHNS DO Ot 787.20 DYSPHAGIA, UNSPECIFIED 05/16/2016 STEF MAI MD Ot 241.0 NONTOX UNINODULAR GOITER 05/16/2016 STEF MAI MD Ot 492.8 EMPHYSEMA NEC 05/16/2016 STEF MAI MD Ot 784.2 SWELLING IN HEAD NECK 05/16/2016 STEF MAI MD Ot 785.6 ENLARGEMENT LYMPH NODES 05/16/2016 STEF MAI MD Ot 787.20 DYSPHAGIA, UNSPECIFIED 05/16/2016 STEF MAI MD Ot 240.9 GOITER NOS 05/16/2016 STEF MAI MD Ot 780.79 OTH MALAISE FATIGUE 05/16/2016 STEF MAI MD Ot 784.42 DYSPHONIA 05/16/2016 ALBA RAMIREZ MD Ot 401.9 HYPERTENSION NOS 05/16/2016 ALBA RAMIREZ MD Ot 414.00 CORON ATHEROSCLER NOS TYPE VESSEL, NATIV 05/16/2016 ALBA RAMIREZ MD Ot 794.30 ABN CARDIOVASC STUDY NOS 05/16/2016 SHARLENE CUTLER, MAGAN E Ot 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 05/16/2016 LILLY LEE DO Ot 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 05/16/2016 LILLY LEE DO Ot V72.63 PRE-PROCEDURAL LABORATORY EXAMINATION 05/16/2016 LILLY LEE DO Ot V72.84 EXAM PRE-OPERATIVE NOS 05/16/2016 KAYCEE HASSANP Ot 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 05/16/2016 KAYCEE HASSAN MEMBERSHIP ADVISOR Ot 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 05/16/2016 KAYCEE HASSAN MEMBERSHIP ADVISOR Ot 250.00 DIAB OLU WO COMPL, TYPE II OR UNSPEC TY 05/16/2016 KAYCEE HASSAN MEMBERSHIP ADVISOR Ot 305.1 TOBACCO USE DISORDER 05/16/2016 KAYCEE HASSAN MEMBERSHIP ADVISOR Ot 401.9 HYPERTENSION NOS 05/16/2016 HASSAN, HILAH S MEMBERSHIP ADVISOR Ot 414.00 CORON ATHEROSCLER NOS TYPE VESSEL, NATIV 05/16/2016 KAYCEE HASSAN S MEMBERSHIP ADVISOR Ot 793.11 SOLITARY PULMONARY NODULE 05/16/2016 KAYCEE HASSAN MEMBERSHIP ADVISOR Ot V45.81 AORTOCORONARY BYPASS 05/16/2016 KAYCEE HASSAN S MEMBERSHIP ADVISOR Ot V58.67 LONG-TERM (CURRENT) USE OF INSULIN 05/16/2016 KAYCEE HASSAN S MEMBERSHIP ADVISOR Ot V58.69 OTH MED,LT,CURRENT USE 05/16/2016 KAYCEE HASSAN S MEMBERSHIP ADVISOR Ot 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 05/16/2016 KAYCEE HASSAN S MEMBERSHIP ADVISOR Ot 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 05/16/2016 KAYCEE HASSAN S MEMBERSHIP ADVISOR Ot 250.00 DIAB OLU WO COMPL, TYPE II OR UNSPEC TY 05/16/2016 KAYCEE HASSAN S MEMBERSHIP ADVISOR Ot 305.1 TOBACCO USE DISORDER 05/16/2016 KAYCEE HASSAN S MEMBERSHIP ADVISOR Ot 401.9 HYPERTENSION NOS 05/16/2016 KAYCEE HASSAN S MEMBERSHIP ADVISOR Ot 414.00 CORON ATHEROSCLER NOS TYPE VESSEL, NATIV 05/16/2016 KAYCEE HASSAN S MEMBERSHIP ADVISOR Ot 793.11 SOLITARY PULMONARY NODULE 05/16/2016 KAYCEE HASSAN MEMBERSHIP ADVISOR Ot V45.81 AORTOCORONARY BYPASS 05/16/2016 KAYCEE HASSAN S MEMBERSHIP ADVISOR Ot V58.67 LONG-TERM (CURRENT) USE OF INSULIN 05/16/2016 KAYCEE HASSAN S MEMBERSHIP ADVISOR Ot V58.69 OTH MED,LT,CURRENT USE 05/16/2016 KAYCEE HASSAN S MEMBERSHIP ADVISOR Ot 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 05/16/2016 KAYCEE HASSAN S MEMBERSHIP ADVISOR Ot 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 05/16/2016 TONJA HASSANAH S MEMBERSHIP ADVISOR Ot 250.00 DIAB OLU WO COMPL, TYPE II OR UNSPEC TY 05/16/2016 KAYCEE HASSAN S MEMBERSHIP ADVISOR Ot 305.1 TOBACCO USE DISORDER 05/16/2016 KAYCEE HASSAN S MEMBERSHIP ADVISOR Ot 401.9 HYPERTENSION NOS 05/16/2016 KAYCEE HASSAN S MEMBERSHIP ADVISOR Ot 414.00 CORON ATHEROSCLER NOS TYPE VESSEL, NATIV 05/16/2016 KAYCEE HASSAN S MEMBERSHIP ADVISOR Ot 793.11 SOLITARY PULMONARY NODULE 05/16/2016 KAYCEE HASSAN S MEMBERSHIP ADVISOR Ot V45.81 AORTOCORONARY BYPASS 05/16/2016 KAYCEE HASSAN MEMBERSHIP ADVISOR Ot V58.67 LONG-TERM (CURRENT) USE OF INSULIN 05/16/2016 KAYCEE HASSAN S MEMBERSHIP ADVISOR Ot V58.69 OTH MED,LT,CURRENT USE 05/16/2016 KAYCEE HASSAN S MEMBERSHIP ADVISOR Ot 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 05/16/2016 KAYCEE HASSAN S MEMBERSHIP ADVISOR Ot 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 05/16/2016 KAYCEE HASSAN S MEMBERSHIP ADVISOR Ot 250.00 DIAB OLU WO COMPL, TYPE II OR UNSPEC TY 05/16/2016 TONJA HASSANAH S MEMBERSHIP ADVISOR Ot 305.1 TOBACCO USE DISORDER 05/16/2016 TONJA HASSANAH S MEMBERSHIP ADVISOR Ot 401.9 HYPERTENSION NOS 05/16/2016 TONJA HASSANAH S MEMBERSHIP ADVISOR Ot 414.00 CORON ATHEROSCLER NOS TYPE VESSEL, NATIV 05/16/2016 KAYCEE HASSAN S MEMBERSHIP ADVISOR Ot 793.11 SOLITARY PULMONARY NODULE 05/16/2016 KAYCEE HASSAN S MEMBERSHIP ADVISOR Ot V45.81 AORTOCORONARY BYPASS 05/16/2016 KAYCEE HASSAN MEMBERSHIP ADVISOR Ot V58.67 LONG-TERM (CURRENT) USE OF INSULIN 05/16/2016 KAYCEE HASSAN MEMBERSHIP ADVISOR Ot V58.69 OTH MED,LT,CURRENT USE 05/16/2016 KAYCEE HASSAN S MEMBERSHIP ADVISOR Ot 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 05/16/2016 KAYCEE HASSAN S MEMBERSHIP ADVISOR Ot 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 05/16/2016 TONJA HASSANAH S MEMBERSHIP ADVISOR Ot 250.00 DIAB OLU WO COMPL, TYPE II OR UNSPEC TY 05/16/2016 TONJA HASSANAH S MEMBERSHIP ADVISOR Ot 305.1 TOBACCO USE DISORDER 05/16/2016 TONJA HASSANAH S MEMBERSHIP ADVISOR Ot 401.9 HYPERTENSION NOS 05/16/2016 HASSAN, HILAH S MEMBERSHIP ADVISOR Ot 414.00 CORON ATHEROSCLER NOS TYPE VESSEL, NATIV 05/16/2016 KAYCEE HASSAN S MEMBERSHIP ADVISOR Ot 793.11 SOLITARY PULMONARY NODULE 05/16/2016 KAYCEE HASSAN S MEMBERSHIP ADVISOR Ot V45.81 AORTOCORONARY BYPASS 05/16/2016 KAYCEE HASSAN MEMBERSHIP ADVISOR Ot V58.67 LONG-TERM (CURRENT) USE OF INSULIN 05/16/2016 KAYCEE HASSAN MEMBERSHIP ADVISOR Ot V58.69 OTH MED,LT,CURRENT USE 05/16/2016 KAYCEE HASSAN S MEMBERSHIP ADVISOR Ot 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 05/16/2016 KAYCEE HASSAN S MEMBERSHIP ADVISOR Ot 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 05/16/2016 KAYCEE HASSAN S MEMBERSHIP ADVISOR Ot 250.00 DIAB OLU WO COMPL, TYPE II OR UNSPEC TY 05/16/2016 KAYCEE HASSAN S MEMBERSHIP ADVISOR Ot 305.1 TOBACCO USE DISORDER 05/16/2016 KAYCEE HASSAN S MEMBERSHIP ADVISOR Ot 401.9 HYPERTENSION NOS 05/16/2016 KAYCEE HASSAN S MEMBERSHIP ADVISOR Ot 414.00 CORON ATHEROSCLER NOS TYPE VESSEL, NATIV 05/16/2016 KAYCEE HASSAN MEMBERSHIP ADVISOR Ot 496 CHR AIRWAY OBSTRUCT NEC 05/16/2016 KAYCEE HASSAN S MEMBERSHIP ADVISOR Ot 793.11 SOLITARY PULMONARY NODULE 05/16/2016 KAYCEE HASSAN MEMBERSHIP ADVISOR Ot V45.81 AORTOCORONARY BYPASS 05/16/2016 KAYCEE HASSAN S MEMBERSHIP ADVISOR Ot V58.67 LONG-TERM (CURRENT) USE OF INSULIN 05/16/2016 KAYCEE HASSAN MEMBERSHIP ADVISOR Ot V58.69 OTH MED,LT,CURRENT USE 05/16/2016 SALOME STEVE Ot 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 05/16/2016 SALOME STEVE Ot 496 CHR AIRWAY OBSTRUCT NEC 05/16/2016 SALOME STEVE Ot 787.20 DYSPHAGIA, UNSPECIFIED 05/16/2016 SALOME STEVE Ot 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 05/16/2016 ZAK BUCIO MEMBERSHIP ADVISOR Ot 250.02 DIAB OLU WO COMPL, TYPE II OR UNSPEC TY 05/16/2016 KAYCEE HASSAN S MEMBERSHIP ADVISOR Ot 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 05/16/2016 KAYCEE HASSAN S MEMBERSHIP ADVISOR Ot 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 05/16/2016 KAYCEE HASSAN S MEMBERSHIP ADVISOR Ot 250.00 DIAB OLU WO COMPL, TYPE II OR UNSPEC TY 05/16/2016 KAYCEE HASSAN S MEMBERSHIP ADVISOR Ot 305.1 TOBACCO USE DISORDER 05/16/2016 KAYCEE HASSAN S MEMBERSHIP ADVISOR Ot 401.9 HYPERTENSION NOS 05/16/2016 TONJA HASSANAH S MEMBERSHIP ADVISOR Ot 414.00 CORON ATHEROSCLER NOS TYPE VESSEL, NATIV 05/16/2016 KAYCEE HASSAN S MEMBERSHIP ADVISOR Ot 496 CHR AIRWAY OBSTRUCT NEC 05/16/2016 KAYCEE HASSAN S MEMBERSHIP ADVISOR Ot 793.11 SOLITARY PULMONARY NODULE 05/16/2016 KAYCEE HASSAN S MEMBERSHIP ADVISOR Ot V45.81 AORTOCORONARY BYPASS 05/16/2016 KAYCEE HASSAN S MEMBERSHIP ADVISOR Ot V58.67 LONG-TERM (CURRENT) USE OF INSULIN 05/16/2016 KAYCEE HASSAN S MEMBERSHIP ADVISOR Ot V58.69 OTH MED,LT,CURRENT USE 05/16/2016 KAYCEE HASSAN S MEMBERSHIP ADVISOR Ot 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 05/16/2016 KAYCEE HASSAN S MEMBERSHIP ADVISOR Ot 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 05/16/2016 KAYCEE HASSAN S MEMBERSHIP ADVISOR Ot 250.00 DIAB OLU WO COMPL, TYPE II OR UNSPEC TY 05/16/2016 KAYCEE HASSAN S MEMBERSHIP ADVISOR Ot 305.1 TOBACCO USE DISORDER 05/16/2016 KAYCEE HASSAN S MEMBERSHIP ADVISOR Ot 401.9 HYPERTENSION NOS 05/16/2016 KAYCEE HASSAN S MEMBERSHIP ADVISOR Ot 414.00 CORON ATHEROSCLER NOS TYPE VESSEL, NATIV 05/16/2016 KAYCEE HASSAN MEMBERSHIP ADVISOR Ot 496 CHR AIRWAY OBSTRUCT NEC 05/16/2016 KAYCEE HASSAN S MEMBERSHIP ADVISOR Ot 793.11 SOLITARY PULMONARY NODULE 05/16/2016 KAYCEE HASSAN MEMBERSHIP ADVISOR Ot V45.81 AORTOCORONARY BYPASS 05/16/2016 KAYCEE HASSAN S MEMBERSHIP ADVISOR Ot V58.67 LONG-TERM (CURRENT) USE OF INSULIN 05/16/2016 KAYCEE HASSAN S MEMBERSHIP ADVISOR Ot V58.69 OTH MED,LT,CURRENT USE 05/16/2016 KAYCEE HASSAN S MEMBERSHIP ADVISOR Ot 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 05/16/2016 STEF MAI MD Ot 793.19 OTHER NONSPECIFIC ABNORMAL FINDING OF DAISHA 05/16/2016 STEF MAI MD Ot V72.63 PRE-PROCEDURAL LABORATORY EXAMINATION 05/16/2016 SERGEI CUTLER, STEF Arriola Ot V72.81 PUDY-[id number]-[id number] CARDIOVASCULAR 05/16/2016 STEF MAI MD Ot V74.8 SCREEN-BACTERIAL DIS NEC 05/16/2016 KYLIE TAYLOR MD Ot 272.4 HYPERLIPIDEMIA NEC/NOS 05/16/2016 KYLIE TAYLOR MD Ot 401.9 HYPERTENSION NOS 05/16/2016 KYLIE TAYLOR MD Ot 414.00 CORON ATHEROSCLER NOS TYPE VESSEL, NATIV 05/16/2016 KAYCEE HASSAN MEMBERSHIP ADVISOR Ot 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 05/16/2016 KAYCEE HASSAN S MEMBERSHIP ADVISOR Ot 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 05/16/2016 KAYCEE HASSAN S MEMBERSHIP ADVISOR Ot 250.00 DIAB OLU WO COMPL, TYPE II OR UNSPEC TY 05/16/2016 TONJA HASSANAH S MEMBERSHIP ADVISOR Ot 305.1 TOBACCO USE DISORDER 05/16/2016 KAYCEE HASSAN S MEMBERSHIP ADVISOR Ot 401.9 HYPERTENSION NOS 05/16/2016 KAYCEE HASSAN S MEMBERSHIP ADVISOR Ot 414.00 CORON ATHEROSCLER NOS TYPE VESSEL, NATIV 05/16/2016 KAYCEE HASSAN MEMBERSHIP ADVISOR Ot 496 CHR AIRWAY OBSTRUCT NEC 05/16/2016 KAYCEE HASSAN MEMBERSHIP ADVISOR Ot 793.11 SOLITARY PULMONARY NODULE 05/16/2016 KAYCEE HASSAN MEMBERSHIP ADVISOR Ot V45.81 AORTOCORONARY BYPASS 05/16/2016 KAYCEE HASSAN MEMBERSHIP ADVISOR Ot V58.67 LONG-TERM (CURRENT) USE OF INSULIN 05/16/2016 KAYCEE HASSAN MEMBERSHIP ADVISOR Ot V58.69 OT MED,LT,CURRENT USE 05/16/2016 KAYCEE HASSAN S MEMBERSHIP ADVISOR Ot 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 05/16/2016 KAYCEE HASSAN S MEMBERSHIP ADVISOR Ot 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 05/16/2016 KAYCEE HASSAN S MEMBERSHIP ADVISOR Ot 250.00 DIAB OLU WO COMPL, TYPE II OR UNSPEC TY 05/16/2016 TONJA HASSANAH S MEMBERSHIP ADVISOR Ot 305.1 TOBACCO USE DISORDER 05/16/2016 HASSANKAYCEE Marinelli S MEMBERSHIP ADVISOR Ot 401.9 HYPERTENSION NOS 05/16/2016 KAYCEE HASSAN S MEMBERSHIP ADVISOR Ot 414.00 CORON ATHEROSCLER NOS TYPE VESSEL, NATIV 05/16/2016 KAYCEE HASSANP Ot 496 CHR AIRWAY OBSTRUCT NEC 05/16/2016 KAYCEE HASSANP Ot 793.11 SOLITARY PULMONARY NODULE 05/16/2016 KAYCEE HASSANP Ot V45.81 AORTOCORONARY BYPASS 05/16/2016 KAYCEE HASSANP Ot V58.67 LONG-TERM (CURRENT) USE OF INSULIN 05/16/2016 KAYCEE HASSANP Ot V58.69 OT MED,LT,CURRENT USE 05/16/2016 KAYCEE HASSAN MEMBERSHIP ADVISOR Ot V58.81 FIT/ADJ VASCULAR CATHETER 05/16/2016 KAYCEE HASSANP Ot 141.9 MALIG HILARIO TONGUE NOS 05/16/2016 KAYCEE HASSANP Ot 793.11 SOLITARY PULMONARY NODULE 05/16/2016 Ot 786.6 CHEST SWELLING/MASS/LUMP 05/16/2016 Ot V72.63 PRE- PROCEDURAL LABORATORY EXAMINATION 05/16/2016 Ot V72.81 EXAM-PRE- OPERATIVE CARDIOVASCULAR 05/16/2016 Ot V72.83 EXAM PRE- OPERATIVE NEC 05/16/2016 DARIAN JESSICA MD Ot 162.9 MAL HILARIO BRONCH/LUNG NOS 05/16/2016 DARIAN JESSICA MD Ot 414.01 CORONARY ATHEROSCLEROSIS OF [place] CORON 05/16/2016 DARIAN JESSICA MD Ot 782.3 EDEMA 05/16/2016 SALOME STEVE Ot 793.11 SOLITARY PULMONARY NODULE 05/16/2016 KYLIE TAYLOR MD Ot 250.00 DIAB OLU WO COMPL, TYPE II OR UNSPEC TY 05/16/2016 KYLIE TAYLOR MD Ot 401.9 HYPERTENSION NOS 05/16/2016 KYLIE TAYLOR MD Ot 414.00 CORON ATHEROSCLER NOS TYPE VESSEL, NATIV 05/16/2016 KYLIE TAYLOR MD Ot 428.0 CONGESTIVE HEART FAILURE NOS 05/16/2016 KYLIE TAYLOR MD Ot V58.67 LONG-TERM (CURRENT) USE OF INSULIN 05/16/2016 KAYCEE HASSANP Ot 162.9 MAL HILARIO BRONCH/LUNG NOS 05/16/2016 KAYCEE HASSANP Ot C34.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 05/16/2016 HASSAN, HILAH S MEMBERSHIP ADVISOR Ot 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 OF SUPRAGLOTTIS 05/16/2016 KAYCEE HASSAN Ot Z12.31 ENCNTR SCREEN MAMMOGRAM FOR MALIGNANT NE 05/16/2016 KAYCEE HASSANP Ot 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 OF SUPRAGLOTTIS 05/16/2016 LILLY LEE DO Ot Z01.818 ENCOUNTER FOR OTHER PREPROCEDURAL EXAMIN 05/16/2016 POWERSALOME PHILLIPS Miguel A Ot 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 OF SUPRAGLOTTIS 05/16/2016 LILIAN TREJO DO M Ot 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 OF SUPRAGLOTTIS 05/16/2016 LILIAN TREJO DO Ot C34.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 NEOPLASM OF UPPER LOBE, LEFT B 05/16/2016 LILIAN TREJO DO M Ot 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 OF SUPRAGLOTTIS 05/16/2016 LILIAN TREJO DO M Ot C34.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 NEOPLASM OF UPPER LOBE, LEFT B 05/16/2016 PIOTR STEVEBRANDO Grady Ot 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 OF SUPRAGLOTTIS 05/16/2016 SALOME STEVE Miguel A Ot C34.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 NEOPLASM OF UPPER LOBE, LEFT B 05/16/2016 SALOME STEVE Miguel A Ot F17.210 NICOTINE DEPENDENCE, CIGARETTES, UNCOMPL 05/16/2016 POWER PIOTRBRANDO Miguel A Ot Z79.899 OTHER ALF (CURRENT) DRUG THERAPY 05/16/2016 POWERSALOME PHILLIPS Miguel A Ot Z92.21 PERSONAL HISTORY OF ANTINEOPLASTIC CHEMO 05/16/2016 POWERSALOME Ot Z92.3 PERSONAL HISTORY OF IRRADIATION 05/16/2016 KAYCEE HASSAN Ot 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 OF SUPRAGLOTTIS 05/16/2016 KAYCEE HASSAN Ot C34.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 NEOPLASM OF UPPER LOBE, LEFT B 05/16/2016 KAYCEE HASSAN Ot M25.552 PAIN IN LEFT HIP 05/16/2016 ANAIS ANGULO MD Ot 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 OF SUPRAGLOTTIS 05/16/2016 ANAIS ANGULO MD Ot Z09 ENCNTR FOR F/U EXAM AFT TRTMT FOR COND O 05/16/2016 ANAIS ANGULO MD Ot Z96.89 PRESENCE OF OTHER SPECIFIED FUNCTIONAL I 05/17/2016 SERGEI CUTLER, STEF Arriola Ot 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 OF SUPRAGLOTTIS 05/23/2016 POWER SALOME Grady Ot 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 OF SUPRAGLOTTIS 05/23/2016 POWER SALOME Grady Ot C34.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 NEOPLASM OF UPPER LOBE, LEFT B 05/23/2016 POWER SALOME Grady Ot F17.210 NICOTINE DEPENDENCE, CIGARETTES, UNCOMPL 05/23/2016 POWER SALOME Grady Ot Z79.899 OTHER ALF (CURRENT) DRUG THERAPY 05/23/2016 POWER SALOME Grady Ot Z92.21 PERSONAL HISTORY OF ANTINEOPLASTIC CHEMO 05/23/2016 POWER, SALOME N Ot Z92.3 PERSONAL HISTORY OF IRRADIATION 05/28/2016 ROBERTO CLANCY MEMBERSHIP ADVISOR Ot Z12.31 ENCNTR SCREEN MAMMOGRAM FOR MALIGNANT NE 05/29/2016 JEZLROBERTO MEMBERSHIP ADVISOR Ot Z12.31 ENCNTR SCREEN MAMMOGRAM FOR MALIGNANT NE 05/29/2016 ROBERTO CLANCY MEMBERSHIP ADVISOR Ot Z12.31 ENCNTR SCREEN MAMMOGRAM FOR MALIGNANT NE 06/13/2016 SERGEI CUTLER, STEF Arriola Ot 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 OF SUPRAGLOTTIS 06/18/2016 SERGEI CUTLER, STEF Arriola Ot 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 OF SUPRAGLOTTIS 06/25/2016 ROBERTO CLANCY MEMBERSHIP ADVISOR Ot Z12.31 ENCNTR SCREEN MAMMOGRAM FOR MALIGNANT NE 07/01/2016 POWERSALOME Ot 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 OF SUPRAGLOTTIS 07/01/2016 POWER, SALOME Grady Ot C34.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 NEOPLASM OF UPPER LOBE, LEFT B 07/01/2016 POWER SALOME Grady Ot F17.210 NICOTINE DEPENDENCE, CIGARETTES, UNCOMPL 07/01/2016 POWER SALOME Grady Ot Z79.899 OTHER ALF (CURRENT) DRUG THERAPY 07/01/2016 POWER SALOME Grady Ot Z92.21 PERSONAL HISTORY OF ANTINEOPLASTIC CHEMO 07/01/2016 POWER SALOME N Ot Z92.3 PERSONAL HISTORY OF IRRADIATION 07/02/2016 POWER SALOME Grady Ot 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 OF SUPRAGLOTTIS 07/02/2016 POWER SALOME Grady Ot C34.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 NEOPLASM OF UPPER LOBE, LEFT B 07/02/2016 SALOME STEVE Miguel A Ot F17.210 NICOTINE DEPENDENCE, CIGARETTES, UNCOMPL 07/02/2016 SALOME STEVE Miguel A Ot Z79.899 OTHER [employer] BL[employer]ITCH (CURRENT) DRUG THERAPY 07/02/2016 SALOME STEVE Miguel A Ot Z92.21 PERSONAL HISTORY OF ANTINEOPLASTIC CHEMO 07/02/2016 SALOME STEVE Miguel A Ot Z92.3 PERSONAL HISTORY OF IRRADIATION 07/03/2016 LEE DO, LILLY D Ot L72.9 FOLLICULAR CYST OF THE SKIN AND SUBCUTAN 07/03/2016 LEE DO, LILLY D Ot Z01.818 ENCOUNTER FOR OTHER PREPROCEDURAL EXAMIN 07/04/2016 LEE DO LILLY D Ot L72.9 FOLLICULAR CYST OF THE SKIN AND SUBCUTAN 07/04/2016 LEE DO, LILLY D Ot Z01.818 ENCOUNTER FOR OTHER PREPROCEDURAL EXAMIN 07/04/2016 LEE DO LILLY D Ot L72.0 EPIDERMAL CYST 08/06/2016 SALOME STEVE Miguel A Ot 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 OF SUPRAGLOTTIS 08/06/2016 SALOME STEVE Miguel A Ot C34.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 NEOPLASM OF UPPER LOBE, LEFT B 08/06/2016 SALOME STEVE Miguel A Ot F17.210 NICOTINE DEPENDENCE, CIGARETTES, UNCOMPL 08/06/2016 SALOME STEVE Miguel A Ot Z79.899 OTHER ALF (CURRENT) DRUG THERAPY 08/06/2016 SALOME STEVE Miguel A Ot Z92.21 PERSONAL HISTORY OF ANTINEOPLASTIC CHEMO 08/06/2016 SALOME STEVE Miguel A Ot Z92.3 PERSONAL HISTORY OF IRRADIATION 08/17/2016 SERGEI CUTLER, STEF Arriola Ot 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 OF SUPRAGLOTTIS 09/05/2016 SALOME STEVE Miguel A Ot 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 OF SUPRAGLOTTIS 09/05/2016 POWER SALOME Grady Ot C34.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 NEOPLASM OF UPPER LOBE, LEFT B 09/05/2016 POWER PIOTRBRANDO Miguel A Ot F17.210 NICOTINE DEPENDENCE, CIGARETTES, UNCOMPL 09/05/2016 SALOME STEVE Miguel A Ot Z45.2 ENCOUNTER FOR ADJUSTMENT AND MANAGEMENT 09/05/2016 POWER PIOTRBRANDO Miguel A Ot Z79.899 OTHER ALF (CURRENT) DRUG THERAPY 09/05/2016 SALOME STEVE Ot Z92.21 PERSONAL HISTORY OF ANTINEOPLASTIC CHEMO 09/05/2016 SALOME STEVE Ot Z92.3 PERSONAL HISTORY OF IRRADIATION 09/11/2016 SALOME STEVE Ot 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 OF SUPRAGLOTTIS 09/11/2016 SALOME STEVE Ot C34.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 NEOPLASM OF UPPER LOBE, LEFT B 09/11/2016 SALOME STEVE Ot F17.210 NICOTINE DEPENDENCE, CIGARETTES, UNCOMPL 09/11/2016 SALOME STEVE Ot Z45.2 ENCOUNTER FOR ADJUSTMENT AND MANAGEMENT 09/11/2016 SALOME STEVE Ot Z79.899 OTHER ALF (CURRENT) DRUG THERAPY 09/11/2016 SALOME STEVE Ot Z92.21 PERSONAL HISTORY OF ANTINEOPLASTIC CHEMO 09/11/2016 SALOME STEVE Miguel A Ot Z92.3 PERSONAL HISTORY OF IRRADIATION 09/17/2016 NALINI JOHNS DO Ot 246.2 CYST OF THYROID 09/17/2016 NALINI JOHNS DO Ot 787.20 DYSPHAGIA, UNSPECIFIED 09/17/2016 STEF MAI MD Ot 241.0 NONTOX UNINODULAR GOITER 09/17/2016 STEF MAI MD Ot 492.8 EMPHYSEMA NEC 09/17/2016 STEF MAI MD Ot 784.2 SWELLING IN HEAD NECK 09/17/2016 STEF MAI MD Ot 785.6 ENLARGEMENT LYMPH NODES 09/17/2016 STEF MAI MD Ot 787.20 DYSPHAGIA, UNSPECIFIED 09/17/2016 STEF MAI MD Ot 240.9 GOITER NOS 09/17/2016 STEF MAI MD Ot 780.79 OTH MALAISE FATIGUE 09/17/2016 STEF MAI MD Ot 784.42 DYSPHONIA 09/17/2016 ALBA RAMIREZ MD Ot 401.9 HYPERTENSION NOS 09/17/2016 ALBA RAMIREZ MD Ot 414.00 CORON ATHEROSCLER NOS TYPE VESSEL, NATIV 09/17/2016 ALBA RAMIREZ MD Ot 794.30 ABN CARDIOVASC STUDY NOS 09/17/2016 SHARLENE CUTLER, MAGAN E Ot 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 09/17/2016 LILLY LEE DO Ot 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 09/17/2016 LILLY LEE DO Ot V72.63 PRE-PROCEDURAL LABORATORY EXAMINATION 09/17/2016 LEE LILLY BIRD Ot V72.84 EXAM PRE-OPERATIVE NOS 09/17/2016 KAYCEE HASSAN S MEMBERSHIP ADVISOR Ot 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 09/17/2016 HASSANKAYCEE Marinelli S MEMBERSHIP ADVISOR Ot 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 09/17/2016 HASSANKAYCEE Marinelli S MEMBERSHIP ADVISOR Ot 250.00 DIAB OLU WO COMPL, TYPE II OR UNSPEC TY 09/17/2016 HASSANKAYCEE Marinelli S MEMBERSHIP ADVISOR Ot 305.1 TOBACCO USE DISORDER 09/17/2016 HASSAN, HILAH S MEMBERSHIP ADVISOR Ot 401.9 HYPERTENSION NOS 09/17/2016 HASSAN, HILAH S MEMBERSHIP ADVISOR Ot 414.00 CORON ATHEROSCLER NOS TYPE VESSEL, NATIV 09/17/2016 KAYCEE HASSAN S MEMBERSHIP ADVISOR Ot 793.11 SOLITARY PULMONARY NODULE 09/17/2016 KAYCEE HASSAN S MEMBERSHIP ADVISOR Ot V45.81 AORTOCORONARY BYPASS 09/17/2016 KAYCEE HASSAN S MEMBERSHIP ADVISOR Ot V58.67 LONG-TERM (CURRENT) USE OF INSULIN 09/17/2016 KAYCEE HASSAN S MEMBERSHIP ADVISOR Ot V58.69 OT MED,LT,CURRENT USE 09/17/2016 KAYCEE HASSAN S MEMBERSHIP ADVISOR Ot 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 09/17/2016 KAYCEE HASSAN S MEMBERSHIP ADVISOR Ot 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 09/17/2016 KAYCEE HASSAN S MEMBERSHIP ADVISOR Ot 250.00 DIAB OLU WO COMPL, TYPE II OR UNSPEC TY 09/17/2016 KAYCEE HASSAN S MEMBERSHIP ADVISOR Ot 305.1 TOBACCO USE DISORDER 09/17/2016 TONJA HASSANAH S MEMBERSHIP ADVISOR Ot 401.9 HYPERTENSION NOS 09/17/2016 HASSAN, HILAH S MEMBERSHIP ADVISOR Ot 414.00 CORON ATHEROSCLER NOS TYPE VESSEL, NATIV 09/17/2016 HASSAN, HILAH S MEMBERSHIP ADVISOR Ot 793.11 SOLITARY PULMONARY NODULE 09/17/2016 KAYCEE HASSAN S MEMBERSHIP ADVISOR Ot V45.81 AORTOCORONARY BYPASS 09/17/2016 TONJA HASSANAH S MEMBERSHIP ADVISOR Ot V58.67 LONG-TERM (CURRENT) USE OF INSULIN 09/17/2016 TONJA HASSANAH S MEMBERSHIP ADVISOR Ot V58.69 OTH MED,LT,CURRENT USE 09/17/2016 HASSAN, HILAH S MEMBERSHIP ADVISOR Ot 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 09/17/2016 HASSAN, HILAH S MEMBERSHIP ADVISOR Ot 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 09/17/2016 HASSAN, HILAH S MEMBERSHIP ADVISOR Ot 250.00 DIAB OLU WO COMPL, TYPE II OR UNSPEC TY 09/17/2016 HASSAN, HILAH S MEMBERSHIP ADVISOR Ot 305.1 TOBACCO USE DISORDER 09/17/2016 TONJA HASSANAH S MEMBERSHIP ADVISOR Ot 401.9 HYPERTENSION NOS 09/17/2016 HASSAN, HILAH S MEMBERSHIP ADVISOR Ot 414.00 CORON ATHEROSCLER NOS TYPE VESSEL, NATIV 09/17/2016 SONYA HILAH S MEMBERSHIP ADVISOR Ot 793.11 SOLITARY PULMONARY NODULE 09/17/2016 KAYCEE HASSAN S MEMBERSHIP ADVISOR Ot V45.81 AORTOCORONARY BYPASS 09/17/2016 KAYCEE HASSAN S MEMBERSHIP ADVISOR Ot V58.67 LONG-TERM (CURRENT) USE OF INSULIN 09/17/2016 KAYCEE HASSAN S MEMBERSHIP ADVISOR Ot V58.69 OTH MED,LT,CURRENT USE 09/17/2016 KAYCEE HASSAN S MEMBERSHIP ADVISOR Ot 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 09/17/2016 TONJA HASSANAH S MEMBERSHIP ADVISOR Ot 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 09/17/2016 TONJA HASSANAH S MEMBERSHIP ADVISOR Ot 250.00 DIAB OLU WO COMPL, TYPE II OR UNSPEC TY 09/17/2016 TONJA HASSANAH S MEMBERSHIP ADVISOR Ot 305.1 TOBACCO USE DISORDER 09/17/2016 KAYCEE HASSAN S MEMBERSHIP ADVISOR Ot 401.9 HYPERTENSION NOS 09/17/2016 TONJA HASSANAH S MEMBERSHIP ADVISOR Ot 414.00 CORON ATHEROSCLER NOS TYPE VESSEL, NATIV 09/17/2016 HASSAN, HILAH S MEMBERSHIP ADVISOR Ot 793.11 SOLITARY PULMONARY NODULE 09/17/2016 SONYA HILAH S MEMBERSHIP ADVISOR Ot V45.81 AORTOCORONARY BYPASS 09/17/2016 HASSAN, HILAH S MEMBERSHIP ADVISOR Ot V58.67 LONG-TERM (CURRENT) USE OF INSULIN 09/17/2016 SONYA HILAH S MEMBERSHIP ADVISOR Ot V58.69 OTH MED,LT,CURRENT USE 09/17/2016 TONJA HASSANAH S MEMBERSHIP ADVISOR Ot 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 09/17/2016 TONJA HASSANAH S MEMBERSHIP ADVISOR Ot 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 09/17/2016 HASSAN, HILAH S MEMBERSHIP ADVISOR Ot 250.00 DIAB OLU WO COMPL, TYPE II OR UNSPEC TY 09/17/2016 SONYA HILAH S MEMBERSHIP ADVISOR Ot 305.1 TOBACCO USE DISORDER 09/17/2016 KAYCEE HASSAN S MEMBERSHIP ADVISOR Ot 401.9 HYPERTENSION NOS 09/17/2016 KAYCEE HASSAN S MEMBERSHIP ADVISOR Ot 414.00 CORON ATHEROSCLER NOS TYPE VESSEL, NATIV 09/17/2016 KAYCEE HASSAN S MEMBERSHIP ADVISOR Ot 793.11 SOLITARY PULMONARY NODULE 09/17/2016 KAYCEE HASSAN S MEMBERSHIP ADVISOR Ot V45.81 AORTOCORONARY BYPASS 09/17/2016 KAYCEE HASSAN S MEMBERSHIP ADVISOR Ot V58.67 LONG-TERM (CURRENT) USE OF INSULIN 09/17/2016 KAYCEE HASSAN S MEMBERSHIP ADVISOR Ot V58.69 OTH MED,LT,CURRENT USE 09/17/2016 KAYCEE HASSAN S MEMBERSHIP ADVISOR Ot 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 09/17/2016 KAYCEE HASSAN S MEMBERSHIP ADVISOR Ot 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 09/17/2016 KAYCEE HASSAN S MEMBERSHIP ADVISOR Ot 250.00 DIAB OLU WO COMPL, TYPE II OR UNSPEC TY 09/17/2016 TONJA HASSANAH S MEMBERSHIP ADVISOR Ot 305.1 TOBACCO USE DISORDER 09/17/2016 KAYCEE HASSAN S MEMBERSHIP ADVISOR Ot 401.9 HYPERTENSION NOS 09/17/2016 KAYCEE HASSAN S MEMBERSHIP ADVISOR Ot 414.00 CORON ATHEROSCLER NOS TYPE VESSEL, NATIV 09/17/2016 KAYCEE HASSAN S MEMBERSHIP ADVISOR Ot 496 CHR AIRWAY OBSTRUCT NEC 09/17/2016 KAYCEE HASSAN S MEMBERSHIP ADVISOR Ot 793.11 SOLITARY PULMONARY NODULE 09/17/2016 KAYCEE HASSAN S MEMBERSHIP ADVISOR Ot V45.81 AORTOCORONARY BYPASS 09/17/2016 KAYCEE HASSAN S MEMBERSHIP ADVISOR Ot V58.67 LONG-TERM (CURRENT) USE OF INSULIN 09/17/2016 SONYA HILAH S MEMBERSHIP ADVISOR Ot V58.69 OTH MED,LT,CURRENT USE 09/17/2016 SALOME STEVE Ot 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 09/17/2016 SALOME STEVE N Ot 496 CHR AIRWAY OBSTRUCT NEC 09/17/2016 SALOME STEVE N Ot 787.20 DYSPHAGIA, UNSPECIFIED 09/17/2016 SALOME STEVE N Ot 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 09/17/2016 RUPINDER ZAK Narciso MEMBERSHIP ADVISOR Ot 250.02 DIAB OLU WO COMPL, TYPE II OR UNSPEC TY 09/17/2016 HASSANKAYCEE Marinelli S MEMBERSHIP ADVISOR Ot 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 09/17/2016 HASSANKAYCEE Marinelli S MEMBERSHIP ADVISOR Ot 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 09/17/2016 HASSANKAYCEE Marinelli S MEMBERSHIP ADVISOR Ot 250.00 DIAB OLU WO COMPL, TYPE II OR UNSPEC TY 09/17/2016 KAYCEE HASSAN S MEMBERSHIP ADVISOR Ot 305.1 TOBACCO USE DISORDER 09/17/2016 KAYCEE HASSAN S MEMBERSHIP ADVISOR Ot 401.9 HYPERTENSION NOS 09/17/2016 KAYCEE HASSAN S MEMBERSHIP ADVISOR Ot 414.00 CORON ATHEROSCLER NOS TYPE VESSEL, NATIV 09/17/2016 KAYCEE HASSAN S MEMBERSHIP ADVISOR Ot 496 CHR AIRWAY OBSTRUCT NEC 09/17/2016 KAYCEE HASSAN S MEMBERSHIP ADVISOR Ot 793.11 SOLITARY PULMONARY NODULE 09/17/2016 KAYCEE HASSAN S MEMBERSHIP ADVISOR Ot V45.81 AORTOCORONARY BYPASS 09/17/2016 KAYCEE HASSAN S MEMBERSHIP ADVISOR Ot V58.67 LONG-TERM (CURRENT) USE OF INSULIN 09/17/2016 KAYCEE HASSAN S MEMBERSHIP ADVISOR Ot V58.69 OTH MED,LT,CURRENT USE 09/17/2016 KAYCEE HASSAN S MEMBERSHIP ADVISOR Ot 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 09/17/2016 KAYCEE HASSAN S MEMBERSHIP ADVISOR Ot 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 09/17/2016 KAYCEE HASSAN S MEMBERSHIP ADVISOR Ot 250.00 DIAB OLU WO COMPL, TYPE II OR UNSPEC TY 09/17/2016 KAYCEE HASSAN S MEMBERSHIP ADVISOR Ot 305.1 TOBACCO USE DISORDER 09/17/2016 TONJA HASSANAH S MEMBERSHIP ADVISOR Ot 401.9 HYPERTENSION NOS 09/17/2016 KAYCEE HASSAN S MEMBERSHIP ADVISOR Ot 414.00 CORON ATHEROSCLER NOS TYPE VESSEL, NATIV 09/17/2016 KAYCEE HASSAN S MEMBERSHIP ADVISOR Ot 496 CHR AIRWAY OBSTRUCT NEC 09/17/2016 KAYCEE HASSAN MEMBERSHIP ADVISOR Ot 793.11 SOLITARY PULMONARY NODULE 09/17/2016 KAYCEE HASSAN MEMBERSHIP ADVISOR Ot V45.81 AORTOCORONARY BYPASS 09/17/2016 KAYCEE HASSAN MEMBERSHIP ADVISOR Ot V58.67 LONG-TERM (CURRENT) USE OF INSULIN 09/17/2016 KAYCEE HASSAN MEMBERSHIP ADVISOR Ot V58.69 OT MED,LT,CURRENT USE 09/17/2016 KAYCEE HASSAN MEMBERSHIP ADVISOR Ot 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 09/17/2016 SERGEI CUTLER, STEF Arriola Ot 793.19 OTHER NONSPECIFIC ABNORMAL FINDING OF DAISHA 09/17/2016 STEF MAI MD Ot V72.63 PRE-PROCEDURAL LABORATORY EXAMINATION 09/17/2016 STEF MAI MD Ot V72.81 [id number] CARDIOVASCULAR 09/17/2016 STEF MAI MD Ot V74.8 SCREEN-BACTERIAL DIS NEC 09/17/2016 KYLIE TAYLOR MD Ot 272.4 HYPERLIPIDEMIA NEC/NOS 09/17/2016 CLAUDIA CUTELR, KYLIE Dawson Ot 401.9 HYPERTENSION NOS 09/17/2016 CLAUDIA CUTLER, KYLIE Dawson Ot 414.00 CORON ATHEROSCLER NOS TYPE VESSEL, NATIV 09/17/2016 KAYCEE HASSAN MEMBERSHIP ADVISOR Ot 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 09/17/2016 KAYCEE HASSAN MEMBERSHIP ADVISOR Ot 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 09/17/2016 KAYCEE HASSAN MEMBERSHIP ADVISOR Ot 250.00 DIAB OLU WO COMPL, TYPE II OR UNSPEC TY 09/17/2016 KAYCEE HASSAN MEMBERSHIP ADVISOR Ot 305.1 TOBACCO USE DISORDER 09/17/2016 KAYCEE HASSAN MEMBERSHIP ADVISOR Ot 401.9 HYPERTENSION NOS 09/17/2016 KAYCEE HASSAN MEMBERSHIP ADVISOR Ot 414.00 CORON ATHEROSCLER NOS TYPE VESSEL, NATIV 09/17/2016 KAYCEE HASSAN MEMBERSHIP ADVISOR Ot 496 CHR AIRWAY OBSTRUCT NEC 09/17/2016 KAYCEE HASSAN MEMBERSHIP ADVISOR Ot 793.11 SOLITARY PULMONARY NODULE 09/17/2016 KAYCEE HASSAN MEMBERSHIP ADVISOR Ot V45.81 AORTOCORONARY BYPASS 09/17/2016 KAYCEE HASSAN MEMBERSHIP ADVISOR Ot V58.67 LONG-TERM (CURRENT) USE OF INSULIN 09/17/2016 HASSANKAYCEE MEMBERSHIP ADVISOR Ot V58.69 OTH MED,LT,CURRENT USE 09/17/2016 SONYA KAYCEE Marinelli MEMBERSHIP ADVISOR Ot 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 09/17/2016 SONYA KAYCEE S MEMBERSHIP ADVISOR Ot 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 09/17/2016 SONYA KAYCEE S MEMBERSHIP ADVISOR Ot 250.00 DIAB OLU WO COMPL, TYPE II OR UNSPEC TY 09/17/2016 SONYA KAYCEE S MEMBERSHIP ADVISOR Ot 305.1 TOBACCO USE DISORDER 09/17/2016 SONYA KAYCEE S MEMBERSHIP ADVISOR Ot 401.9 HYPERTENSION NOS 09/17/2016 SONYA KAYCEE S MEMBERSHIP ADVISOR Ot 414.00 CORON ATHEROSCLER NOS TYPE VESSEL, NATIV 09/17/2016 SONYA KAYCEE Marinelli MEMBERSHIP ADVISOR Ot 496 CHR AIRWAY OBSTRUCT NEC 09/17/2016 SONYA KAYCEE Marinelli MEMBERSHIP ADVISOR Ot 793.11 SOLITARY PULMONARY NODULE 09/17/2016 SONYA KAYCEE Marinelli MEMBERSHIP ADVISOR Ot V45.81 AORTOCORONARY BYPASS 09/17/2016 SONYA KAYCEE Marinelli MEMBERSHIP ADVISOR Ot V58.67 LONG-TERM (CURRENT) USE OF INSULIN 09/17/2016 SONYA KAYCEE Marinelli MEMBERSHIP ADVISOR Ot V58.69 OTH MED,LT,CURRENT USE 09/17/2016 SONYA KAYCEE Marinelli MEMBERSHIP ADVISOR Ot V58.81 FIT/ADJ VASCULAR CATHETER 09/17/2016 SONYA KAYCEE Marinelli MEMBERSHIP ADVISOR Ot 141.9 MALIG HILARIO TONGUE NOS 09/17/2016 SONYA KAYCEE S MEMBERSHIP ADVISOR Ot 793.11 SOLITARY PULMONARY NODULE 09/17/2016 Ot 786.6 CHEST SWELLING/MASS/LUMP 09/17/2016 Ot V72.63 PRE- PROCEDURAL LABORATORY EXAMINATION 09/17/2016 Ot V72.81 EXAM-PRE- OPERATIVE CARDIOVASCULAR 09/17/2016 Ot V72.83 EXAM PRE- OPERATIVE NEC 09/17/2016 DARIAN JESSICA MD Ot 162.9 MAL HILARIO BRONCH/LUNG NOS 09/17/2016 DARIAN JESSICA MD Ot 414.01 CORONARY ATHEROSCLEROSIS OF [place] CORON 09/17/2016 DARIAN JESSICA MD Ot 782.3 EDEMA 09/17/2016 SALOME STEVE Ot 793.11 SOLITARY PULMONARY NODULE 09/17/2016 KYLIE TAYLOR MD Ot 250.00 DIAB OLU WO COMPL, TYPE II OR UNSPEC TY 09/17/2016 KYLIE TAYLOR MD Ot 401.9 HYPERTENSION NOS 09/17/2016 KYLIE TAYLOR MD Ot 414.00 CORON ATHEROSCLER NOS TYPE VESSEL, NATIV 09/17/2016 KYLIE TAYLOR MD Ot 428.0 CONGESTIVE HEART FAILURE NOS 09/17/2016 KYLIE TAYLOR MD Ot V58.67 LONG-TERM (CURRENT) USE OF INSULIN 09/17/2016 KAYCEE HASSAN Ot 162.9 MAL HILARIO BRONCH/LUNG NOS 09/17/2016 KAYCEE HASSAN Ot C34.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 09/17/2016 KAYCEE HASSAN Ot 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 OF SUPRAGLOTTIS 09/17/2016 KAYCEE HASSAN Ot Z12.31 ENCNTR SCREEN MAMMOGRAM FOR MALIGNANT NE 09/17/2016 KAYCEE HASSAN Ot 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 OF SUPRAGLOTTIS 09/17/2016 LILLY LEE DO Ot Z01.818 ENCOUNTER FOR OTHER PREPROCEDURAL EXAMIN 09/17/2016 SALOME STEVE Ot 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 OF SUPRAGLOTTIS 09/17/2016 LILIAN TREJO DO Ot 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 OF SUPRAGLOTTIS 09/17/2016 LILIAN TREJO DO Ot C34.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 NEOPLASM OF UPPER LOBE, LEFT B 09/17/2016 LILIAN TREJO DO Ot 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 OF SUPRAGLOTTIS 09/17/2016 LILIAN TREJO DO Ot C34.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 NEOPLASM OF UPPER LOBE, LEFT B 09/17/2016 KAYCEE HASSAN Ot 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 OF SUPRAGLOTTIS 09/17/2016 KAYCEE HASSAN Ot C34.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 NEOPLASM OF UPPER LOBE, LEFT B 09/17/2016 KAYCEE HASSAN Ot M25.552 PAIN IN LEFT HIP 09/17/2016 ANAIS ANGULO MD Ot 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 OF SUPRAGLOTTIS 09/17/2016 ANAIS ANGULO MD Ot Z09 ENCNTR FOR F/U EXAM AFT TRTMT FOR COND O 09/17/2016 ANAIS ANGULO MD Ot Z96.89 PRESENCE OF OTHER SPECIFIED FUNCTIONAL I 09/17/2016 STEF MAI MD Ot 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 OF SUPRAGLOTTIS 09/17/2016 ROBERTO CLANCYP Ot Z12.31 ENCNTR SCREEN MAMMOGRAM FOR MALIGNANT NE 09/17/2016 SALOME STEVE Miguel A Ot 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 OF SUPRAGLOTTIS 09/17/2016 POWER SALOME Grady Ot C34.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 NEOPLASM OF UPPER LOBE, LEFT B 09/17/2016 SALOME STEVE Miguel A Ot F17.210 NICOTINE DEPENDENCE, CIGARETTES, UNCOMPL 09/17/2016 POWER SALOME Grady Ot Z45.2 ENCOUNTER FOR ADJUSTMENT AND MANAGEMENT 09/17/2016 POWER SALOME Grady Ot Z79.899 OTHER BOOKSEAMER BLINDSTITCH (CURRENT) DRUG THERAPY 09/17/2016 POWER SALOME Grady Ot Z92.21 PERSONAL HISTORY OF ANTINEOPLASTIC CHEMO 09/17/2016 POWER SALOME Grady Ot Z92.3 PERSONAL HISTORY OF IRRADIATION 09/17/2016 KAYCEE HASSAN MEMBERSHIP ADVISOR Ot 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 OF SUPRAGLOTTIS 09/17/2016 KAYCEE HASSAN MEMBERSHIP ADVISOR Ot C34.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 NEOPLASM OF UPPER LOBE, LEFT B 09/17/2016 KAYCEE HASSAN MEMBERSHIP ADVISOR Ot M25.552 PAIN IN LEFT HIP 09/17/2016 ANAIS ANGULO MD Ot 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 OF SUPRAGLOTTIS 09/17/2016 ANAIS ANGULO MD Ot Z09 ENCNTR FOR F/U EXAM AFT TRTMT FOR COND O 09/17/2016 ANAIS ANGULO MD Ot Z96.89 PRESENCE OF OTHER SPECIFIED FUNCTIONAL I 09/17/2016 STEF MAI MD Ot 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 OF SUPRAGLOTTIS 09/17/2016 ROBERTO CLANCY Ot Z12.31 ENCNTR SCREEN MAMMOGRAM FOR MALIGNANT NE 09/17/2016 PIOTR STEVEBRANDO Grady Ot 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 OF SUPRAGLOTTIS 09/17/2016 POWER SALOME Grady Ot C34.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 NEOPLASM OF UPPER LOBE, LEFT B 09/17/2016 SALOME STEVE Ot F17.210 NICOTINE DEPENDENCE, CIGARETTES, UNCOMPL 09/17/2016 SALOME STEVE N Ot Z45.2 ENCOUNTER FOR ADJUSTMENT AND MANAGEMENT 09/17/2016 SALOME STEVE N Ot Z79.899 OTHER BOOKSEAMER BLINDSTITCH (CURRENT) DRUG THERAPY 09/17/2016 SALOME STEVE N Ot Z92.21 PERSONAL HISTORY OF ANTINEOPLASTIC CHEMO 09/17/2016 SALOME STEVE N Ot Z92.3 PERSONAL HISTORY OF IRRADIATION 09/18/2016 HASSANKAYCEE S MEMBERSHIP ADVISOR Ot 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 OF SUPRAGLOTTIS 09/18/2016 HASSANKAYCEE S MEMBERSHIP ADVISOR Ot C34.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 NEOPLASM OF UPPER LOBE, LEFT B 10/23/2016 HASSAN, HILBOB S MEMBERSHIP ADVISOR Ot 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 OF SUPRAGLOTTIS 10/23/2016 HASSAN, HILBOB S MEMBERSHIP ADVISOR Ot C34.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 NEOPLASM OF UPPER LOBE, LEFT B 11/03/2016 SALOME STEVE N Ot 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 OF SUPRAGLOTTIS 11/03/2016 ASLOME STEVE N Ot C34.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 NEOPLASM OF UPPER LOBE, LEFT B 11/03/2016 SALOME STEVE N Ot F17.210 NICOTINE DEPENDENCE, CIGARETTES, UNCOMPL 11/03/2016 SALOME STEVE Ot Z45.2 ENCOUNTER FOR ADJUSTMENT AND MANAGEMENT 11/03/2016 SALOME STEVE Ot Z79.899 OTHER BOOKSEAMER BLINDSTITCH (CURRENT) DRUG THERAPY 11/03/2016 SALOME STEVE N Ot Z92.21 PERSONAL HISTORY OF ANTINEOPLASTIC CHEMO 11/03/2016 SALOME STEVE N Ot Z92.3 PERSONAL HISTORY OF IRRADIATION 11/09/2016 SALOME STEVE N Ot 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 OF SUPRAGLOTTIS 11/09/2016 SALOME STEVE N Ot C34.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 NEOPLASM OF UPPER LOBE, LEFT B 11/09/2016 SALOME STEVE N Ot F17.210 NICOTINE DEPENDENCE, CIGARETTES, UNCOMPL 11/09/2016 SALOME STEVE N Ot Z45.2 ENCOUNTER FOR ADJUSTMENT AND MANAGEMENT 11/09/2016 SALOME STEVE N Ot Z79.899 OTHER ALF (CURRENT) DRUG THERAPY 11/09/2016 SALOME STEVE N Ot Z92.21 PERSONAL HISTORY OF ANTINEOPLASTIC CHEMO 11/09/2016 SALOME STEVE Miguel A Ot Z92.3 PERSONAL HISTORY OF IRRADIATION 12/10/2016 NALINI JOHNS DO Ot 246.2 CYST OF THYROID 12/10/2016 NALINI JOHNS DO Ot 787.20 DYSPHAGIA, UNSPECIFIED 12/10/2016 STEF MAI MD Ot 241.0 NONTOX UNINODULAR GOITER 12/10/2016 STEF MAI MD Ot 492.8 EMPHYSEMA NEC 12/10/2016 STEF MAI MD Ot 784.2 SWELLING IN HEAD NECK 12/10/2016 STEF MAI MD Ot 785.6 ENLARGEMENT LYMPH NODES 12/10/2016 STEF MAI MD Ot 787.20 DYSPHAGIA, UNSPECIFIED 12/10/2016 STEF MAI MD Ot 240.9 GOITER NOS 12/10/2016 STEF MAI MD Ot 780.79 OTH MALAISE FATIGUE 12/10/2016 STEF MAI MD Ot 784.42 DYSPHONIA 12/10/2016 ALBA RAMIREZ MD Ot 401.9 HYPERTENSION NOS 12/10/2016 ALBA RAMIREZ MD Ot 414.00 CORON ATHEROSCLER NOS TYPE VESSEL, NATIV 12/10/2016 ALBA RAMIREZ MD Ot 794.30 ABN CARDIOVASC STUDY NOS 12/10/2016 SHARLENE CUTLER, MAGAN E Ot 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 12/10/2016 LILLY LEE DO Ot 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 12/10/2016 LILLY LEE DO Ot V72.63 PRE-PROCEDURAL LABORATORY EXAMINATION 12/10/2016 LILLY LEE DO Ot V72.84 EXAM PRE-OPERATIVE NOS 12/10/2016 KAYCEE HASSAN MEMBERSHIP ADVISOR Ot 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 12/10/2016 KAYCEE HASSAN MEMBERSHIP ADVISOR Ot 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 12/10/2016 KAYCEE HASSAN MEMBERSHIP ADVISOR Ot 250.00 DIAB OLU WO COMPL, TYPE II OR UNSPEC TY 12/10/2016 KAYCEE HASSAN MEMBERSHIP ADVISOR Ot 305.1 TOBACCO USE DISORDER 12/10/2016 KAYCEE HASSAN MEMBERSHIP ADVISOR Ot 401.9 HYPERTENSION NOS 12/10/2016 KAYCEE HASSAN MEMBERSHIP ADVISOR Ot 414.00 CORON ATHEROSCLER NOS TYPE VESSEL, NATIV 12/10/2016 KAYCEE HASSAN S MEMBERSHIP ADVISOR Ot 793.11 SOLITARY PULMONARY NODULE 12/10/2016 KAYCEE HASSAN S MEMBERSHIP ADVISOR Ot V45.81 AORTOCORONARY BYPASS 12/10/2016 KAYCEE HASSAN S MEMBERSHIP ADVISOR Ot V58.67 LONG-TERM (CURRENT) USE OF INSULIN 12/10/2016 KAYCEE HASSAN S MEMBERSHIP ADVISOR Ot V58.69 OTH MED,LT,CURRENT USE 12/10/2016 KAYCEE HASSAN S MEMBERSHIP ADVISOR Ot 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 12/10/2016 TONJA HASSANAH S MEMBERSHIP ADVISOR Ot 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 12/10/2016 TONJA HASSANAH S MEMBERSHIP ADVISOR Ot 250.00 DIAB OLU WO COMPL, TYPE II OR UNSPEC TY 12/10/2016 SONYA HILAH S MEMBERSHIP ADVISOR Ot 305.1 TOBACCO USE DISORDER 12/10/2016 TONJA HASSANAH S MEMBERSHIP ADVISOR Ot 401.9 HYPERTENSION NOS 12/10/2016 KAYCEE HASSAN S MEMBERSHIP ADVISOR Ot 414.00 CORON ATHEROSCLER NOS TYPE VESSEL, NATIV 12/10/2016 KAYCEE HASSAN S MEMBERSHIP ADVISOR Ot 793.11 SOLITARY PULMONARY NODULE 12/10/2016 KAYCEE HASSAN S MEMBERSHIP ADVISOR Ot V45.81 AORTOCORONARY BYPASS 12/10/2016 KAYCEE HASSAN S MEMBERSHIP ADVISOR Ot V58.67 LONG-TERM (CURRENT) USE OF INSULIN 12/10/2016 KAYCEE HASSAN S MEMBERSHIP ADVISOR Ot V58.69 OTH MED,LT,CURRENT USE 12/10/2016 KAYCEE HASSAN S MEMBERSHIP ADVISOR Ot 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 12/10/2016 TONJA HASSANAH S MEMBERSHIP ADVISOR Ot 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 12/10/2016 HASSAN, HILAH S MEMBERSHIP ADVISOR Ot 250.00 DIAB OLU WO COMPL, TYPE II OR UNSPEC TY 12/10/2016 HASSAN, HILAH S MEMBERSHIP ADVISOR Ot 305.1 TOBACCO USE DISORDER 12/10/2016 SONYA HILAH S MEMBERSHIP ADVISOR Ot 401.9 HYPERTENSION NOS 12/10/2016 HASSAN, HILAH S MEMBERSHIP ADVISOR Ot 414.00 CORON ATHEROSCLER NOS TYPE VESSEL, NATIV 12/10/2016 TONJA HASSANAH S MEMBERSHIP ADVISOR Ot 793.11 SOLITARY PULMONARY NODULE 12/10/2016 KAYCEE HASSAN MEMBERSHIP ADVISOR Ot V45.81 AORTOCORONARY BYPASS 12/10/2016 KAYCEE HASSAN MEMBERSHIP ADVISOR Ot V58.67 LONG-TERM (CURRENT) USE OF INSULIN 12/10/2016 KAYCEE HASSAN S MEMBERSHIP ADVISOR Ot V58.69 OTH MED,LT,CURRENT USE 12/10/2016 KAYCEE HASSAN S MEMBERSHIP ADVISOR Ot 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 12/10/2016 KAYCEE HASSAN S MEMBERSHIP ADVISOR Ot 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 12/10/2016 KAYCEE HASSAN S MEMBERSHIP ADVISOR Ot 250.00 DIAB OLU WO COMPL, TYPE II OR UNSPEC TY 12/10/2016 KAYCEE HASSAN S MEMBERSHIP ADVISOR Ot 305.1 TOBACCO USE DISORDER 12/10/2016 KAYCEE HASSAN S MEMBERSHIP ADVISOR Ot 401.9 HYPERTENSION NOS 12/10/2016 KAYCEE HASSAN S MEMBERSHIP ADVISOR Ot 414.00 CORON ATHEROSCLER NOS TYPE VESSEL, NATIV 12/10/2016 KAYCEE HASSAN S MEMBERSHIP ADVISOR Ot 793.11 SOLITARY PULMONARY NODULE 12/10/2016 KAYCEE HASSAN S MEMBERSHIP ADVISOR Ot V45.81 AORTOCORONARY BYPASS 12/10/2016 KAYCEE HASSAN MEMBERSHIP ADVISOR Ot V58.67 LONG-TERM (CURRENT) USE OF INSULIN 12/10/2016 KAYCEE HASSAN MEMBERSHIP ADVISOR Ot V58.69 OTH MED,LT,CURRENT USE 12/10/2016 KAYCEE HASSAN MEMBERSHIP ADVISOR Ot 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 12/10/2016 KAYCEE HASSAN MEMBERSHIP ADVISOR Ot 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 12/10/2016 KAYCEE HASSAN S MEMBERSHIP ADVISOR Ot 250.00 DIAB OLU WO COMPL, TYPE II OR UNSPEC TY 12/10/2016 KAYCEE HASSAN S MEMBERSHIP ADVISOR Ot 305.1 TOBACCO USE DISORDER 12/10/2016 KAYCEE HASSAN S MEMBERSHIP ADVISOR Ot 401.9 HYPERTENSION NOS 12/10/2016 TONJA HASSANAH S MEMBERSHIP ADVISOR Ot 414.00 CORON ATHEROSCLER NOS TYPE VESSEL, NATIV 12/10/2016 KAYCEE HASSAN S MEMBERSHIP ADVISOR Ot 793.11 SOLITARY PULMONARY NODULE 12/10/2016 KAYCEE HASSAN S MEMBERSHIP ADVISOR Ot V45.81 AORTOCORONARY BYPASS 12/10/2016 KAYCEE HASSAN MEMBERSHIP ADVISOR Ot V58.67 LONG-TERM (CURRENT) USE OF INSULIN 12/10/2016 KAYCEE HASSAN MEMBERSHIP ADVISOR Ot V58.69 OTH MED,LT,CURRENT USE 12/10/2016 KAYCEE HASSAN S MEMBERSHIP ADVISOR Ot 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 12/10/2016 KAYCEE HASSAN S MEMBERSHIP ADVISOR Ot 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 12/10/2016 KAYCEE HASSAN S MEMBERSHIP ADVISOR Ot 250.00 DIAB OLU WO COMPL, TYPE II OR UNSPEC TY 12/10/2016 KAYCEE HASSAN S MEMBERSHIP ADVISOR Ot 305.1 TOBACCO USE DISORDER 12/10/2016 KAYCEE HASSAN S MEMBERSHIP ADVISOR Ot 401.9 HYPERTENSION NOS 12/10/2016 KAYCEE HASSAN S MEMBERSHIP ADVISOR Ot 414.00 CORON ATHEROSCLER NOS TYPE VESSEL, NATIV 12/10/2016 KAYCEE HASSAN MEMBERSHIP ADVISOR Ot 496 CHR AIRWAY OBSTRUCT NEC 12/10/2016 KAYCEE HASSAN S MEMBERSHIP ADVISOR Ot 793.11 SOLITARY PULMONARY NODULE 12/10/2016 KAYCEE HASSAN S MEMBERSHIP ADVISOR Ot V45.81 AORTOCORONARY BYPASS 12/10/2016 KAYCEE HASSAN S MEMBERSHIP ADVISOR Ot V58.67 LONG-TERM (CURRENT) USE OF INSULIN 12/10/2016 KAYCEE HASSAN S MEMBERSHIP ADVISOR Ot V58.69 OTH MED,LT,CURRENT USE 12/10/2016 SALOME STEVE Ot 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 12/10/2016 SALOME STEVE Ot 496 CHR AIRWAY OBSTRUCT NEC 12/10/2016 SALOME STEVE Ot 787.20 DYSPHAGIA, UNSPECIFIED 12/10/2016 SALOME STEVE Ot 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 12/10/2016 ZAK BUCIO MEMBERSHIP ADVISOR Ot 250.02 DIAB OLU WO COMPL, TYPE II OR UNSPEC TY 12/10/2016 KAYCEE HASSAN S MEMBERSHIP ADVISOR Ot 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 12/10/2016 KAYCEE HASSAN S MEMBERSHIP ADVISOR Ot 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 12/10/2016 KAYCEE HASSAN S MEMBERSHIP ADVISOR Ot 250.00 DIAB OLU WO COMPL, TYPE II OR UNSPEC TY 12/10/2016 KAYCEE HASSAN S MEMBERSHIP ADVISOR Ot 305.1 TOBACCO USE DISORDER 12/10/2016 SONYA KAYCEE S MEMBERSHIP ADVISOR Ot 401.9 HYPERTENSION NOS 12/10/2016 SONYA TONJAAH S MEMBERSHIP ADVISOR Ot 414.00 CORON ATHEROSCLER NOS TYPE VESSEL, NATIV 12/10/2016 SONYA KAYCEE S MEMBERSHIP ADVISOR Ot 496 CHR AIRWAY OBSTRUCT NEC 12/10/2016 KAYCEE HASSAN S MEMBERSHIP ADVISOR Ot 793.11 SOLITARY PULMONARY NODULE 12/10/2016 KAYCEE HASSAN S MEMBERSHIP ADVISOR Ot V45.81 AORTOCORONARY BYPASS 12/10/2016 SONYA KAYCEE S MEMBERSHIP ADVISOR Ot V58.67 LONG-TERM (CURRENT) USE OF INSULIN 12/10/2016 KAYCEE HASSAN S MEMBERSHIP ADVISOR Ot V58.69 OTH MED,LT,CURRENT USE 12/10/2016 TONJA HASSANBOB S MEMBERSHIP ADVISOR Ot 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 12/10/2016 KAYCEE HASSAN S MEMBERSHIP ADVISOR Ot 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 12/10/2016 TONJA HASSANBOB S MEMBERSHIP ADVISOR Ot 250.00 DIAB OUL WO COMPL, TYPE II OR UNSPEC TY 12/10/2016 SONYA KAYCEE S MEMBERSHIP ADVISOR Ot 305.1 TOBACCO USE DISORDER 12/10/2016 TONJA HASSANBOB S MEMBERSHIP ADVISOR Ot 401.9 HYPERTENSION NOS 12/10/2016 TNOJA HASSANBOB S MEMBERSHIP ADVISOR Ot 414.00 CORON ATHEROSCLER NOS TYPE VESSEL, NATIV 12/10/2016 KAYCEE HASSAN S MEMBERSHIP ADVISOR Ot 496 CHR AIRWAY OBSTRUCT NEC 12/10/2016 KAYCEE HASSAN S MEMBERSHIP ADVISOR Ot 793.11 SOLITARY PULMONARY NODULE 12/10/2016 KAYCEE HASSAN S MEMBERSHIP ADVISOR Ot V45.81 AORTOCORONARY BYPASS 12/10/2016 KAYCEE HASSAN S MEMBERSHIP ADVISOR Ot V58.67 LONG-TERM (CURRENT) USE OF INSULIN 12/10/2016 KAYCEE HASSAN S MEMBERSHIP ADVISOR Ot V58.69 OTH MED,LT,CURRENT USE 12/10/2016 KAYCEE HASSAN S MEMBERSHIP ADVISOR Ot 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 12/10/2016 SERGEI CUTLER, STEF Arriola Ot 793.19 OTHER NONSPECIFIC ABNORMAL FINDING OF DAISHA 12/10/2016 SERGEI CUTLER, STEF Arriola Ot V72.63 PRE-PROCEDURAL LABORATORY EXAMINATION 12/10/2016 STEF MAI MD Ot V72.81 [id number] CARDIOVASCULAR 12/10/2016 STEF MAI MD Ot V74.8 SCREEN-BACTERIAL DIS NEC 12/10/2016 KYLIE TAYLOR MD Ot 272.4 HYPERLIPIDEMIA NEC/NOS 12/10/2016 KYLIE TAYLOR MD Ot 401.9 HYPERTENSION NOS 12/10/2016 KYLIE TAYLOR MD Ot 414.00 CORON ATHEROSCLER NOS TYPE VESSEL, NATIV 12/10/2016 KAYCEE HASSAN MEMBERSHIP ADVISOR Ot 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 12/10/2016 KAYCEE HASSAN MEMBERSHIP ADVISOR Ot 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 12/10/2016 KAYCEE HASSAN MEMBERSHIP ADVISOR Ot 250.00 DIAB OLU WO COMPL, TYPE II OR UNSPEC TY 12/10/2016 KAYCEE HASSAN MEMBERSHIP ADVISOR Ot 305.1 TOBACCO USE DISORDER 12/10/2016 KAYCEE HASSAN MEMBERSHIP ADVISOR Ot 401.9 HYPERTENSION NOS 12/10/2016 KAYCEE HASSAN S MEMBERSHIP ADVISOR Ot 414.00 CORON ATHEROSCLER NOS TYPE VESSEL, NATIV 12/10/2016 KAYCEE HASSAN MEMBERSHIP ADVISOR Ot 496 CHR AIRWAY OBSTRUCT NEC 12/10/2016 KAYCEE HASSAN MEMBERSHIP ADVISOR Ot 793.11 SOLITARY PULMONARY NODULE 12/10/2016 KAYCEE HASSAN MEMBERSHIP ADVISOR Ot V45.81 AORTOCORONARY BYPASS 12/10/2016 KAYCEE HASSAN MEMBERSHIP ADVISOR Ot V58.67 LONG-TERM (CURRENT) USE OF INSULIN 12/10/2016 KAYCEE HASSAN MEMBERSHIP ADVISOR Ot V58.69 OT MED,LT,CURRENT USE 12/10/2016 KAYCEE HASSAN MEMBERSHIP ADVISOR Ot 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 12/10/2016 KAYCEE HASSAN MEMBERSHIP ADVISOR Ot 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 12/10/2016 KAYCEE HASSAN S MEMBERSHIP ADVISOR Ot 250.00 DIAB OLU WO COMPL, TYPE II OR UNSPEC TY 12/10/2016 KAYCEE HASSAN S MEMBERSHIP ADVISOR Ot 305.1 TOBACCO USE DISORDER 12/10/2016 KAYCEE HASSAN S MEMBERSHIP ADVISOR Ot 401.9 HYPERTENSION NOS 12/10/2016 KAYCEE HASSAN S MEMBERSHIP ADVISOR Ot 414.00 CORON ATHEROSCLER NOS TYPE VESSEL, NATIV 12/10/2016 KAYCEE HASSAN MEMBERSHIP ADVISOR Ot 496 CHR AIRWAY OBSTRUCT NEC 12/10/2016 KAYCEE HASSAN MEMBERSHIP ADVISOR Ot 793.11 SOLITARY PULMONARY NODULE 12/10/2016 KAYCEE HASSANP Ot V45.81 AORTOCORONARY BYPASS 12/10/2016 KAYCEE HASSAN MEMBERSHIP ADVISOR Ot V58.67 LONG-TERM (CURRENT) USE OF INSULIN 12/10/2016 KAYCEE HASSAN MEMBERSHIP ADVISOR Ot V58.69 OT MED,LT,CURRENT USE 12/10/2016 KAYCEE HASSAN MEMBERSHIP ADVISOR Ot V58.81 FIT/ADJ VASCULAR CATHETER 12/10/2016 KAYCEE HASSANP Ot 141.9 MALIG HILARIO TONGUE NOS 12/10/2016 KAYCEE HASSANP Ot 793.11 SOLITARY PULMONARY NODULE 12/10/2016 Ot 786.6 CHEST SWELLING/MASS/LUMP 12/10/2016 Ot V72.63 PRE- PROCEDURAL LABORATORY EXAMINATION 12/10/2016 Ot V72.81 EXAM-PRE- OPERATIVE CARDIOVASCULAR 12/10/2016 Ot V72.83 EXAM PRE- OPERATIVE NEC 12/10/2016 DARIAN JESSICA MD Ot 162.9 MAL HILARIO BRONCH/LUNG NOS 12/10/2016 DARIAN JESSICA MD Ot 414.01 CORONARY ATHEROSCLEROSIS OF [place] CORON 12/10/2016 DARIAN JESSICA MD Ot 782.3 EDEMA 12/10/2016 SALOME STEVE Ot 793.11 SOLITARY PULMONARY NODULE 12/10/2016 KYLIE TAYLOR MD Ot 250.00 DIAB OLU WO COMPL, TYPE II OR UNSPEC TY 12/10/2016 KYLIE TAYLOR MD Ot 401.9 HYPERTENSION NOS 12/10/2016 KYLIE TAYLOR MD Ot 414.00 CORON ATHEROSCLER NOS TYPE VESSEL, NATIV 12/10/2016 KYLIE TAYLOR MD Ot 428.0 CONGESTIVE HEART FAILURE NOS 12/10/2016 KYLIE TAYLOR MD Ot V58.67 LONG-TERM (CURRENT) USE OF INSULIN 12/10/2016 KAYCEE HASSANP Ot 162.9 MAL HILARIO BRONCH/LUNG NOS 12/10/2016 KAYCEE HASSANP Ot C34.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 12/10/2016 HASSAN, HILAH S MEMBERSHIP ADVISOR Ot 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 OF SUPRAGLOTTIS 12/10/2016 KAYCEE HASSAN MEMBERSHIP ADVISOR Ot Z12.31 ENCNTR SCREEN MAMMOGRAM FOR MALIGNANT NE 12/10/2016 KAYCEE HASSAN MEMBERSHIP ADVISOR Ot 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 OF SUPRAGLOTTIS 12/10/2016 LILLY LEE DO Ot Z01.818 ENCOUNTER FOR OTHER PREPROCEDURAL EXAMIN 12/10/2016 SALOME STEVE Ot 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 OF SUPRAGLOTTIS 12/10/2016 LILIAN TREJO DO M Ot 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 OF SUPRAGLOTTIS 12/10/2016 LILIAN TREJO DO M Ot C34.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 NEOPLASM OF UPPER LOBE, LEFT B 12/10/2016 LILIAN TREJO DO M Ot 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 OF SUPRAGLOTTIS 12/10/2016 LILIAN TREJO DO M Ot C34.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 NEOPLASM OF UPPER LOBE, LEFT B 12/10/2016 KAYCEE HASSANP Ot 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 OF SUPRAGLOTTIS 12/10/2016 KAYCEE HASSAN MEMBERSHIP ADVISOR Ot C34.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 NEOPLASM OF UPPER LOBE, LEFT B 12/10/2016 KAYCEE HASSANP Ot M25.552 PAIN IN LEFT HIP 12/10/2016 ADELE CUTLER, ANAIS Nicholas Ot 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 OF SUPRAGLOTTIS 12/10/2016 ADELE CUTLER, ANAIS Nicholas Ot Z09 ENCNTR FOR F/U EXAM AFT TRTMT FOR COND O 12/10/2016 ANAIS ANGULO MD Ot Z96.89 PRESENCE OF OTHER SPECIFIED FUNCTIONAL I 12/10/2016 SERGEI CUTLER, STEF Arriola Ot 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 OF SUPRAGLOTTIS 12/10/2016 ROBERTO CLANCY MEMBERSHIP ADVISOR Ot Z12.31 ENCNTR SCREEN MAMMOGRAM FOR MALIGNANT NE 12/10/2016 KAYCEE HASSAN MEMBERSHIP ADVISOR Ot 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 OF SUPRAGLOTTIS 12/10/2016 KAYCEE HASSAN MEMBERSHIP ADVISOR Ot C34.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 NEOPLASM OF UPPER LOBE, LEFT B 01/10/2017 SALOME STEVE Ot 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 OF SUPRAGLOTTIS 01/10/2017 POWER, BOBAN N Ot C34.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 NEOPLASM OF UPPER LOBE, LEFT B 01/10/2017 SALOME STEVE Ot F17.210 NICOTINE DEPENDENCE, CIGARETTES, UNCOMPL 01/10/2017 SALOME STEVE Ot Z79.899 OTHER BOOKSEAMER BLINDSTITCH (CURRENT) DRUG THERAPY 01/10/2017 SALOME STEVE N Ot Z92.21 PERSONAL HISTORY OF ANTINEOPLASTIC CHEMO 01/10/2017 SALOME STEVE N Ot Z92.3 PERSONAL HISTORY OF IRRADIATION 02/10/2017 SALOME STEVE N Ot 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 OF SUPRAGLOTTIS 02/10/2017 SALOME STEVE N Ot C34.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 NEOPLASM OF UPPER LOBE, LEFT B 02/10/2017 SALOME STEVE Ot F17.210 NICOTINE DEPENDENCE, CIGARETTES, UNCOMPL 02/10/2017 SALOME STEVE N Ot Z79.899 OTHER ALF (CURRENT) DRUG THERAPY 02/10/2017 SALOME STEVE N Ot Z92.21 PERSONAL HISTORY OF ANTINEOPLASTIC CHEMO 02/10/2017 SALOME STEVE N Ot Z92.3 PERSONAL HISTORY OF IRRADIATION 03/15/2017 SALOME STEVE N Ot 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 OF SUPRAGLOTTIS 03/15/2017 SALOME STEVE N Ot C34.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 NEOPLASM OF UPPER LOBE, LEFT B 03/15/2017 SALOME STEVE Ot F17.210 NICOTINE DEPENDENCE, CIGARETTES, UNCOMPL 03/15/2017 SALOME STEVE Ot Z45.2 ENCOUNTER FOR ADJUSTMENT AND MANAGEMENT 03/15/2017 SALOME STEVE N Ot Z79.899 OTHER ALF (CURRENT) DRUG THERAPY 03/15/2017 SALOME STEVE N Ot Z92.21 PERSONAL HISTORY OF ANTINEOPLASTIC CHEMO 03/15/2017 SALOME STEVE N Ot Z92.3 PERSONAL HISTORY OF IRRADIATION 04/08/2017 KAYCEE HASSAN MEMBERSHIP ADVISOR Ot 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 OF SUPRAGLOTTIS 04/08/2017 KAYCEE HASSAN MEMBERSHIP ADVISOR Ot C34.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 NEOPLASM OF UPPER LOBE, LEFT B 04/08/2017 KAYCEE HASSAN MEMBERSHIP ADVISOR Ot 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 OF SUPRAGLOTTIS 04/08/2017 KAYCEE HASSAN MEMBERSHIP ADVISOR Ot C34.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 NEOPLASM OF UPPER LOBE, LEFT B 04/08/2017 SALOME STEVE Miguel A Ot 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 OF SUPRAGLOTTIS 04/08/2017 SALOME STEVE Miguel A Ot C34.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 NEOPLASM OF UPPER LOBE, LEFT B 04/08/2017 SALOME STEVE Miguel A Ot E11.43 TYPE 2 DIABETES W DIABETIC AUTONOMIC (PO 04/08/2017 SALOME STEVE Miguel A Ot E78.5 HYPERLIPIDEMIA, UNSPECIFIED 04/08/2017 SALOME STEVE Miguel A Ot E83.42 HYPOMAGNESEMIA 04/08/2017 POWER PIOTRBRANDO Miguel A Ot F17.210 NICOTINE DEPENDENCE, CIGARETTES, UNCOMPL 04/08/2017 POWER PIOTRBRANDO Miguel A Ot I10 ESSENTIAL (PRIMARY) HYPERTENSION 04/08/2017 SALOME STEVE Miguel A Ot I25.10 ATHSCL HEART DISEASE OF [place] CORONARY 04/08/2017 SALOME STEVE Miguel A Ot J43.9 EMPHYSEMA, UNSPECIFIED 04/08/2017 SALOME STEVE Miguel A Ot Z79.899 OTHER ALF (CURRENT) DRUG THERAPY 04/08/2017 SALOME STEVE Miguel A Ot Z92.21 PERSONAL HISTORY OF ANTINEOPLASTIC CHEMO 04/08/2017 POWERSALOME Ot Z92.3 PERSONAL HISTORY OF IRRADIATION 04/08/2017 NALINI JOHNS DO Ot 246.2 CYST OF THYROID 04/08/2017 NALINI JOHNS DO S Ot 787.20 DYSPHAGIA, UNSPECIFIED 04/08/2017 STEF MAI MD Ot 241.0 NONTOX UNINODULAR GOITER 04/08/2017 STEF MAI MD Ot 492.8 EMPHYSEMA NEC 04/08/2017 STEF MAI MD Ot 784.2 SWELLING IN HEAD NECK 04/08/2017 STEF MAI MD Ot 785.6 ENLARGEMENT LYMPH NODES 04/08/2017 STEF MAI MD Ot 787.20 DYSPHAGIA, UNSPECIFIED 04/08/2017 STEF MAI MD Ot 240.9 GOITER NOS 04/08/2017 STEF MAI MD Ot 780.79 OTH MALAISE FATIGUE 04/08/2017 STEF MAI MD Ot 784.42 DYSPHONIA 04/08/2017 ALBA RAMIREZ MD Ot 401.9 HYPERTENSION NOS 04/08/2017 ALBA RAMIREZ MD Ot 414.00 CORON ATHEROSCLER NOS TYPE VESSEL, NATIV 04/08/2017 FABIÁN RAMIREZ MDAD D Ot 794.30 ABN CARDIOVASC STUDY NOS 04/08/2017 SHARLENE CUTLER, MAGAN Delong Ot 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 04/08/2017 [employer] LILLY BIRD Ot 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 04/08/2017 [employer] LILLY BIRD Ot V72.63 PRE-PROCEDURAL LABORATORY EXAMINATION 04/08/2017 [employer] LILLY BIRD Ot V72.84 EXAM PRE-OPERATIVE NOS 04/08/2017 KAYCEE HASSAN S MEMBERSHIP ADVISOR Ot 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 04/08/2017 HASSANKAYCEE Marinelli S MEMBERSHIP ADVISOR Ot 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 04/08/2017 HASSANKAYCEE Marinelli S MEMBERSHIP ADVISOR Ot 250.00 DIAB OLU WO COMPL, TYPE II OR UNSPEC TY 04/08/2017 HASSANKAYCEE S MEMBERSHIP ADVISOR Ot 305.1 TOBACCO USE DISORDER 04/08/2017 KAYCEE HASSAN S MEMBERSHIP ADVISOR Ot 401.9 HYPERTENSION NOS 04/08/2017 HASSANKAYCEE Marinelli S MEMBERSHIP ADVISOR Ot 414.00 CORON ATHEROSCLER NOS TYPE VESSEL, NATIV 04/08/2017 KAYCEE HASSAN S MEMBERSHIP ADVISOR Ot 793.11 SOLITARY PULMONARY NODULE 04/08/2017 KAYCEE HASSAN S MEMBERSHIP ADVISOR Ot V45.81 AORTOCORONARY BYPASS 04/08/2017 KAYCEE HASSAN S MEMBERSHIP ADVISOR Ot V58.67 LONG-TERM (CURRENT) USE OF INSULIN 04/08/2017 KAYCEE HASSAN S MEMBERSHIP ADVISOR Ot V58.69 OTH MED,LT,CURRENT USE 04/08/2017 KAYCEE HASSAN S MEMBERSHIP ADVISOR Ot 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 04/08/2017 KAYCEE HASSAN S MEMBERSHIP ADVISOR Ot 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 04/08/2017 HASSANTONJAAH S MEMBERSHIP ADVISOR Ot 250.00 DIAB OLU WO COMPL, TYPE II OR UNSPEC TY 04/08/2017 HASSAN, HILAH S MEMBERSHIP ADVISOR Ot 305.1 TOBACCO USE DISORDER 04/08/2017 HASSAN HILAH S MEMBERSHIP ADVISOR Ot 401.9 HYPERTENSION NOS 04/08/2017 HASSANTONJAAH S MEMBERSHIP ADVISOR Ot 414.00 CORON ATHEROSCLER NOS TYPE VESSEL, NATIV 04/08/2017 KAYCEE HASSAN S MEMBERSHIP ADVISOR Ot 793.11 SOLITARY PULMONARY NODULE 04/08/2017 KAYCEE HASSAN MEMBERSHIP ADVISOR Ot V45.81 AORTOCORONARY BYPASS 04/08/2017 KAYCEE HASSAN MEMBERSHIP ADVISOR Ot V58.67 LONG-TERM (CURRENT) USE OF INSULIN 04/08/2017 KAYCEE HASSAN S MEMBERSHIP ADVISOR Ot V58.69 OTH MED,LT,CURRENT USE 04/08/2017 KAYCEE HASSAN S MEMBERSHIP ADVISOR Ot 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 04/08/2017 KAYCEE HASSAN S MEMBERSHIP ADVISOR Ot 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 04/08/2017 KAYCEE HASSAN S MEMBERSHIP ADVISOR Ot 250.00 DIAB OLU WO COMPL, TYPE II OR UNSPEC TY 04/08/2017 TONJA HASSANAH S MEMBERSHIP ADVISOR Ot 305.1 TOBACCO USE DISORDER 04/08/2017 KAYCEE HASSAN S MEMBERSHIP ADVISOR Ot 401.9 HYPERTENSION NOS 04/08/2017 KAYCEE HASSAN S MEMBERSHIP ADVISOR Ot 414.00 CORON ATHEROSCLER NOS TYPE VESSEL, NATIV 04/08/2017 KAYCEE HASSAN S MEMBERSHIP ADVISOR Ot 793.11 SOLITARY PULMONARY NODULE 04/08/2017 KAYCEE HASSAN S MEMBERSHIP ADVISOR Ot V45.81 AORTOCORONARY BYPASS 04/08/2017 KAYCEE HASSAN MEMBERSHIP ADVISOR Ot V58.67 LONG-TERM (CURRENT) USE OF INSULIN 04/08/2017 KAYCEE HASSAN MEMBERSHIP ADVISOR Ot V58.69 OTH MED,LT,CURRENT USE 04/08/2017 KAYCEE HASSAN S MEMBERSHIP ADVISOR Ot 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 04/08/2017 KAYCEE HASSAN S MEMBERSHIP ADVISOR Ot 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 04/08/2017 KAYCEE HASSAN S MEMBERSHIP ADVISOR Ot 250.00 DIAB OLU WO COMPL, TYPE II OR UNSPEC TY 04/08/2017 KAYCEE HASSAN S MEMBERSHIP ADVISOR Ot 305.1 TOBACCO USE DISORDER 04/08/2017 TONJA HASSANAH S MEMBERSHIP ADVISOR Ot 401.9 HYPERTENSION NOS 04/08/2017 SONYA HILAH S MEMBERSHIP ADVISOR Ot 414.00 CORON ATHEROSCLER NOS TYPE VESSEL, NATIV 04/08/2017 KAYCEE HASSAN S MEMBERSHIP ADVISOR Ot 793.11 SOLITARY PULMONARY NODULE 04/08/2017 KAYCEE HASSAN S MEMBERSHIP ADVISOR Ot V45.81 AORTOCORONARY BYPASS 04/08/2017 KAYCEE HASSAN S MEMBERSHIP ADVISOR Ot V58.67 LONG-TERM (CURRENT) USE OF INSULIN 04/08/2017 KAYCEE HASSAN S MEMBERSHIP ADVISOR Ot V58.69 OTH MED,LT,CURRENT USE 04/08/2017 KAYCEE HASSAN S MEMBERSHIP ADVISOR Ot 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 04/08/2017 KAYCEE HASSAN S MEMBERSHIP ADVISOR Ot 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 04/08/2017 KAYCEE HASSAN S MEMBERSHIP ADVISOR Ot 250.00 DIAB OLU WO COMPL, TYPE II OR UNSPEC TY 04/08/2017 KAYCEE HASSAN S MEMBERSHIP ADVISOR Ot 305.1 TOBACCO USE DISORDER 04/08/2017 KAYCEE HASSAN S MEMBERSHIP ADVISOR Ot 401.9 HYPERTENSION NOS 04/08/2017 KAYCEE HASSAN S MEMBERSHIP ADVISOR Ot 414.00 CORON ATHEROSCLER NOS TYPE VESSEL, NATIV 04/08/2017 KAYCEE HASSAN S MEMBERSHIP ADVISOR Ot 793.11 SOLITARY PULMONARY NODULE 04/08/2017 KAYCEE HASSAN MEMBERSHIP ADVISOR Ot V45.81 AORTOCORONARY BYPASS 04/08/2017 KAYCEE HASSAN S MEMBERSHIP ADVISOR Ot V58.67 LONG-TERM (CURRENT) USE OF INSULIN 04/08/2017 KAYCEE HASSAN S MEMBERSHIP ADVISOR Ot V58.69 OTH MED,LT,CURRENT USE 04/08/2017 KAYCEE HASSAN MEMBERSHIP ADVISOR Ot 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 04/08/2017 KAYCEE HASSAN S MEMBERSHIP ADVISOR Ot 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 04/08/2017 KAYCEE HASSAN S MEMBERSHIP ADVISOR Ot 250.00 DIAB OLU WO COMPL, TYPE II OR UNSPEC TY 04/08/2017 KAYCEE HASSAN S MEMBERSHIP ADVISOR Ot 305.1 TOBACCO USE DISORDER 04/08/2017 KAYCEE HASSAN S MEMBERSHIP ADVISOR Ot 401.9 HYPERTENSION NOS 04/08/2017 KAYCEE HASSAN S MEMBERSHIP ADVISOR Ot 414.00 CORON ATHEROSCLER NOS TYPE VESSEL, NATIV 04/08/2017 KAYCEE HASSAN S MEMBERSHIP ADVISOR Ot 496 CHR AIRWAY OBSTRUCT NEC 04/08/2017 KAYCEE HASSAN S MEMBERSHIP ADVISOR Ot 793.11 SOLITARY PULMONARY NODULE 04/08/2017 KAYCEE HASSAN S MEMBERSHIP ADVISOR Ot V45.81 AORTOCORONARY BYPASS 04/08/2017 KAYCEE HASSAN MEMBERSHIP ADVISOR Ot V58.67 LONG-TERM (CURRENT) USE OF INSULIN 04/08/2017 KAYCEE HASSAN S MEMBERSHIP ADVISOR Ot V58.69 OTH MED,LT,CURRENT USE 04/08/2017 SALOME STEVE N Ot 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 04/08/2017 SALOME STEVE Miguel A Ot 496 CHR AIRWAY OBSTRUCT NEC 04/08/2017 SALOME STEVE Miguel A Ot 787.20 DYSPHAGIA, UNSPECIFIED 04/08/2017 SALOME STEVE N Ot 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 04/08/2017 ZAK BUCIO MEMBERSHIP ADVISOR Ot 250.02 DIAB OLU WO COMPL, TYPE II OR UNSPEC TY 04/08/2017 KAYCEE HASSAN S MEMBERSHIP ADVISOR Ot 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 04/08/2017 KAYCEE HASSAN S MEMBERSHIP ADVISOR Ot 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 04/08/2017 KAYCEE HASSAN S MEMBERSHIP ADVISOR Ot 250.00 DIAB OLU WO COMPL, TYPE II OR UNSPEC TY 04/08/2017 KAYCEE HASSAN S MEMBERSHIP ADVISOR Ot 305.1 TOBACCO USE DISORDER 04/08/2017 KAYCEE HASSAN S MEMBERSHIP ADVISOR Ot 401.9 HYPERTENSION NOS 04/08/2017 KAYCEE HASSAN S MEMBERSHIP ADVISOR Ot 414.00 CORON ATHEROSCLER NOS TYPE VESSEL, NATIV 04/08/2017 KAYCEE HASSAN MEMBERSHIP ADVISOR Ot 496 CHR AIRWAY OBSTRUCT NEC 04/08/2017 KAYCEE HASSAN S MEMBERSHIP ADVISOR Ot 793.11 SOLITARY PULMONARY NODULE 04/08/2017 KAYCEE HASSAN MEMBERSHIP ADVISOR Ot V45.81 AORTOCORONARY BYPASS 04/08/2017 KAYCEE HASSAN S MEMBERSHIP ADVISOR Ot V58.67 LONG-TERM (CURRENT) USE OF INSULIN 04/08/2017 KAYCEE HASASN S MEMBERSHIP ADVISOR Ot V58.69 OTH MED,LT,CURRENT USE 04/08/2017 KAYCEE HASSAN S MEMBERSHIP ADVISOR Ot 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 04/08/2017 KAYCEE HASSAN S MEMBERSHIP ADVISOR Ot 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 04/08/2017 KAYCEE HASSAN S MEMBERSHIP ADVISOR Ot 250.00 DIAB OLU WO COMPL, TYPE II OR UNSPEC TY 04/08/2017 KAYCEE HASSAN S MEMBERSHIP ADVISOR Ot 305.1 TOBACCO USE DISORDER 04/08/2017 KAYCEE HASSAN MEMBERSHIP ADVISOR Ot 401.9 HYPERTENSION NOS 04/08/2017 KAYCEE HASSAN MEMBERSHIP ADVISOR Ot 414.00 CORON ATHEROSCLER NOS TYPE VESSEL, NATIV 04/08/2017 KAYCEE HASSAN MEMBERSHIP ADVISOR Ot 496 CHR AIRWAY OBSTRUCT NEC 04/08/2017 KAYCEE HASSAN MEMBERSHIP ADVISOR Ot 793.11 SOLITARY PULMONARY NODULE 04/08/2017 KAYCEE HASSAN MEMBERSHIP ADVISOR Ot V45.81 AORTOCORONARY BYPASS 04/08/2017 KAYCEE HASSAN MEMBERSHIP ADVISOR Ot V58.67 LONG-TERM (CURRENT) USE OF INSULIN 04/08/2017 KAYCEE HASSAN MEMBERSHIP ADVISOR Ot V58.69 OT MED,LT,CURRENT USE 04/08/2017 KAYCEE HASSAN MEMBERSHIP ADVISOR Ot 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 04/08/2017 SERGEI CUTLER, STEF Arriola Ot 793.19 OTHER NONSPECIFIC ABNORMAL FINDING OF [place] 04/08/2017 SERGEI CUTLER, STEF Arriola Ot V72.63 PRE-PROCEDURAL LABORATORY EXAMINATION 04/08/2017 STEF MAI MD Ot V72.81 GOCE-OUA-RQALVQUVX CARDIOVASCULAR 04/08/2017 SERGEI CUTLER, STEF Arriola Ot V74.8 SCREEN-BACTERIAL DIS NEC 04/08/2017 KYLIE TAYLOR MD Ot 272.4 HYPERLIPIDEMIA NEC/NOS 04/08/2017 KYLIE TAYLOR MD Ot 401.9 HYPERTENSION NOS 04/08/2017 KYLIE TAYLOR MD Ot 414.00 CORON ATHEROSCLER NOS TYPE VESSEL, NATIV 04/08/2017 KAYCEE HASSAN MEMBERSHIP ADVISOR Ot 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 04/08/2017 KAYCEE HASSAN MEMBERSHIP ADVISOR Ot 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 04/08/2017 KAYCEE HASSAN MEMBERSHIP ADVISOR Ot 250.00 DIAB OLU WO COMPL, TYPE II OR UNSPEC TY 04/08/2017 KAYCEE HASSAN MEMBERSHIP ADVISOR Ot 305.1 TOBACCO USE DISORDER 04/08/2017 KAYCEE HASSAN MEMBERSHIP ADVISOR Ot 401.9 HYPERTENSION NOS 04/08/2017 KAYCEE HASSAN MEMBERSHIP ADVISOR Ot 414.00 CORON ATHEROSCLER NOS TYPE VESSEL, NATIV 04/08/2017 KAYCEE HASSAN MEMBERSHIP ADVISOR Ot 496 CHR AIRWAY OBSTRUCT NEC 04/08/2017 KAYCEE HASSAN MEMBERSHIP ADVISOR Ot 793.11 SOLITARY PULMONARY NODULE 04/08/2017 KAYCEE HASSAN MEMBERSHIP ADVISOR Ot V45.81 AORTOCORONARY BYPASS 04/08/2017 KAYCEE HASSAN MEMBERSHIP ADVISOR Ot V58.67 LONG-TERM (CURRENT) USE OF INSULIN 04/08/2017 KAYCEE HASSAN MEMBERSHIP ADVISOR Ot V58.69 OTH MED,LT,CURRENT USE 04/08/2017 KAYCEE HASSAN MEMBERSHIP ADVISOR Ot 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 04/08/2017 KAYCEE HASSAN MEMBERSHIP ADVISOR Ot 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 04/08/2017 KAYCEE HASSAN MEMBERSHIP ADVISOR Ot 250.00 DIAB OLU WO COMPL, TYPE II OR UNSPEC TY 04/08/2017 KAYCEE HASSAN MEMBERSHIP ADVISOR Ot 305.1 TOBACCO USE DISORDER 04/08/2017 KAYCEE HASSAN MEMBERSHIP ADVISOR Ot 401.9 HYPERTENSION NOS 04/08/2017 KAYCEE HASSAN MEMBERSHIP ADVISOR Ot 414.00 CORON ATHEROSCLER NOS TYPE VESSEL, NATIV 04/08/2017 KAYCEE HASSAN MEMBERSHIP ADVISOR Ot 496 CHR AIRWAY OBSTRUCT NEC 04/08/2017 KAYCEE HASSAN MEMBERSHIP ADVISOR Ot 793.11 SOLITARY PULMONARY NODULE 04/08/2017 KAYCEE HASSAN MEMBERSHIP ADVISOR Ot V45.81 AORTOCORONARY BYPASS 04/08/2017 KAYCEE HASSAN MEMBERSHIP ADVISOR Ot V58.67 LONG-TERM (CURRENT) USE OF INSULIN 04/08/2017 KAYCEE HASSAN MEMBERSHIP ADVISOR Ot V58.69 OTH MED,LT,CURRENT USE 04/08/2017 KAYCEE HASSAN MEMBERSHIP ADVISOR Ot V58.81 FIT/ADJ VASCULAR CATHETER 04/08/2017 KAYCEE HASSAN MEMBERSHIP ADVISOR Ot 141.9 MALIG HILARIO TONGUE NOS 04/08/2017 KAYCEE HASSAN MEMBERSHIP ADVISOR Ot 793.11 SOLITARY PULMONARY NODULE 04/08/2017 Ot 786.6 CHEST SWELLING/MASS/LUMP 04/08/2017 Ot V72.63 PRE- PROCEDURAL LABORATORY EXAMINATION 04/08/2017 Ot V72.81 EXAM-PRE- OPERATIVE CARDIOVASCULAR 04/08/2017 Ot V72.83 EXAM PRE- OPERATIVE NEC 04/08/2017 DARIAN JESSICA MD Ot 162.9 MAL HILARIO BRONCH/LUNG NOS 04/08/2017 DARIAN JESSICA MD Ot 414.01 CORONARY ATHEROSCLEROSIS OF [place] CORON 04/08/2017 DARIAN JESSICA MD Ot 782.3 EDEMA 04/08/2017 SALOME STEVE Ot 793.11 SOLITARY PULMONARY NODULE 04/08/2017 KYLIE TAYLOR MD Ot 250.00 DIAB OLU WO COMPL, TYPE II OR UNSPEC TY 04/08/2017 KYLIE TAYLOR MD Ot 401.9 HYPERTENSION NOS 04/08/2017 KYLIE TAYLOR MD Ot 414.00 CORON ATHEROSCLER NOS TYPE VESSEL, NATIV 04/08/2017 KYLIE TAYLOR MD Ot 428.0 CONGESTIVE HEART FAILURE NOS 04/08/2017 KYLIE TAYLOR MD Ot V58.67 LONG-TERM (CURRENT) USE OF INSULIN 04/08/2017 KAYCEE HASSAN MEMBERSHIP ADVISOR Ot 162.9 MAL HILARIO BRONCH/LUNG NOS 04/08/2017 KAYCEE HASSAN MEMBERSHIP ADVISOR Ot C34.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 04/08/2017 KAYCEE HASSANP Ot 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 OF SUPRAGLOTTIS 04/08/2017 KAYCEE HASSANP Ot Z12.31 ENCNTR SCREEN MAMMOGRAM FOR MALIGNANT NE 04/08/2017 KAYCEE HASSANP Ot 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 OF SUPRAGLOTTIS 04/08/2017 LILLY LEE DO Ot Z01.818 ENCOUNTER FOR OTHER PREPROCEDURAL EXAMIN 04/08/2017 SALOME STEVE Ot 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 OF SUPRAGLOTTIS 04/08/2017 LILIAN TREJO DO Ot 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 OF SUPRAGLOTTIS 04/08/2017 LILIAN TREJO DO Ot C34.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 NEOPLASM OF UPPER LOBE, LEFT B 04/08/2017 LILIAN TREJO DO Ot 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 OF SUPRAGLOTTIS 04/08/2017 LILIAN TREJO DO Ot C34.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 NEOPLASM OF UPPER LOBE, LEFT B 04/08/2017 KAYCEE HASSAN MEMBERSHIP ADVISOR Ot 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 OF SUPRAGLOTTIS 04/08/2017 KAYCEE HASSAN MEMBERSHIP ADVISOR Ot C34.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 NEOPLASM OF UPPER LOBE, LEFT B 04/08/2017 KAYCEE HASSAN MEMBERSHIP ADVISOR Ot M25.552 PAIN IN LEFT HIP 04/08/2017 ANAIS ANGULO MD Ot 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 OF SUPRAGLOTTIS 04/08/2017 ANAIS ANGULO MD Ot Z09 ENCNTR FOR F/U EXAM AFT TRTMT FOR COND O 04/08/2017 ANAIS ANGULO MD Ot Z96.89 PRESENCE OF OTHER SPECIFIED FUNCTIONAL I 04/08/2017 SERGEI CUTLER, STEF Arriola Ot 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 OF SUPRAGLOTTIS 04/08/2017 ASTONROBERTO Miguelito MEMBERSHIP ADVISOR Ot Z12.31 ENCNTR SCREEN MAMMOGRAM FOR MALIGNANT NE 04/08/2017 KAYCEE HASSAN MEMBERSHIP ADVISOR Ot 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 OF SUPRAGLOTTIS 04/08/2017 KAYCEE HASSAN MEMBERSHIP ADVISOR Ot C34.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 NEOPLASM OF UPPER LOBE, LEFT B 04/08/2017 KAYCEE HASSAN MEMBERSHIP ADVISOR Ot 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 OF SUPRAGLOTTIS 04/08/2017 KAYCEE HASSAN MEMBERSHIP ADVISOR Ot C34.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 NEOPLASM OF UPPER LOBE, LEFT B 04/08/2017 SALOME STEVE N Ot 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 OF SUPRAGLOTTIS 04/08/2017 SALOME STEVE N Ot C34.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 NEOPLASM OF UPPER LOBE, LEFT B 04/08/2017 SALOME STEVE Ot E11.43 TYPE 2 DIABETES W DIABETIC AUTONOMIC (PO 04/08/2017 SALOME STEVE Ot E78.5 HYPERLIPIDEMIA, UNSPECIFIED 04/08/2017 SALOME STEVE Ot E83.42 HYPOMAGNESEMIA 04/08/2017 SALOME STEVE N Ot F17.210 NICOTINE DEPENDENCE, CIGARETTES, UNCOMPL 04/08/2017 SALOME STEVE N Ot I10 ESSENTIAL (PRIMARY) HYPERTENSION 04/08/2017 SALOME SETVE Ot I25.10 ATHSCL HEART DISEASE OF [place] CORONARY 04/08/2017 SALOME STEVE Ot J43.9 EMPHYSEMA, UNSPECIFIED 04/08/2017 SALOME STEVE Ot Z79.899 OTHER ALF (CURRENT) DRUG THERAPY 04/08/2017 SALOME STEVE Ot Z92.21 PERSONAL HISTORY OF ANTINEOPLASTIC CHEMO 04/08/2017 SALOME STEVE Miguel A Ot Z92.3 PERSONAL HISTORY OF IRRADIATION 04/22/2017 KAYCEE HASSAN Ot 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 OF SUPRAGLOTTIS 04/22/2017 KAYCEE HASSAN Ot C34.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 NEOPLASM OF UPPER LOBE, LEFT B 04/22/2017 NALINI JOHNS DO S Ot 246.2 CYST OF THYROID 04/22/2017 NALINI JOHNS DO S Ot 787.20 DYSPHAGIA, UNSPECIFIED 04/22/2017 STEF MAI MD Ot 241.0 NONTOX UNINODULAR GOITER 04/22/2017 STEF MAI MD Ot 492.8 EMPHYSEMA NEC 04/22/2017 STEF MAI MD Ot 784.2 SWELLING IN HEAD NECK 04/22/2017 STEF MAI MD Ot 785.6 ENLARGEMENT LYMPH NODES 04/22/2017 STEF MAI MD Ot 787.20 DYSPHAGIA, UNSPECIFIED 04/22/2017 STEF MAI MD Ot 240.9 GOITER NOS 04/22/2017 STEF MAI MD Ot 780.79 OTH MALAISE FATIGUE 04/22/2017 STEF MAI MD Ot 784.42 DYSPHONIA 04/22/2017 ALBA RAMIREZ MD Ot 401.9 HYPERTENSION NOS 04/22/2017 JAMES CUTLER, ALBA Zamora Ot 414.00 CORON ATHEROSCLER NOS TYPE VESSEL, NATIV 04/22/2017 ALBA RAMIREZ MD Ot 794.30 ABN CARDIOVASC STUDY NOS 04/22/2017 SHARLENE CUTLER, MAGAN Delong Ot 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 04/22/2017 LILLY LEE DO Ot 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 04/22/2017 LILLY LEE DO Ot V72.63 PRE-PROCEDURAL LABORATORY EXAMINATION 04/22/2017 LILLY LEE DO Ot V72.84 EXAM PRE-OPERATIVE NOS 04/22/2017 KAYCEE HASSAN Ot 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 04/22/2017 KAYCEE HASSAN Ot 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 04/22/2017 KAYCEE HASSAN Ot 250.00 DIAB OLU WO COMPL, TYPE II OR UNSPEC TY 04/22/2017 HASSAN, HILAH S MEMBERSHIP ADVISOR Ot 305.1 TOBACCO USE DISORDER 04/22/2017 KAYCEE HASSAN S MEMBERSHIP ADVISOR Ot 401.9 HYPERTENSION NOS 04/22/2017 TONJA HASSANAH S MEMBERSHIP ADVISOR Ot 414.00 CORON ATHEROSCLER NOS TYPE VESSEL, NATIV 04/22/2017 KAYCEE HASSAN S MEMBERSHIP ADVISOR Ot 793.11 SOLITARY PULMONARY NODULE 04/22/2017 KAYCEE HASSAN S MEMBERSHIP ADVISOR Ot V45.81 AORTOCORONARY BYPASS 04/22/2017 KAYCEE HASSAN S MEMBERSHIP ADVISOR Ot V58.67 LONG-TERM (CURRENT) USE OF INSULIN 04/22/2017 KAYCEE HASSAN S MEMBERSHIP ADVISOR Ot V58.69 OTH MED,LT,CURRENT USE 04/22/2017 TONJA HASSANAH S MEMBERSHIP ADVISOR Ot 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 04/22/2017 SONYA HILAH S MEMBERSHIP ADVISOR Ot 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 04/22/2017 SONYA HILAH S MEMBERSHIP ADVISOR Ot 250.00 DIAB OLU WO COMPL, TYPE II OR UNSPEC TY 04/22/2017 TONJA HASSANAH S MEMBERSHIP ADVISOR Ot 305.1 TOBACCO USE DISORDER 04/22/2017 KAYCEE HASSAN S MEMBERSHIP ADVISOR Ot 401.9 HYPERTENSION NOS 04/22/2017 KAYCEE HASSAN S MEMBERSHIP ADVISOR Ot 414.00 CORON ATHEROSCLER NOS TYPE VESSEL, NATIV 04/22/2017 KAYCEE HASSAN S MEMBERSHIP ADVISOR Ot 793.11 SOLITARY PULMONARY NODULE 04/22/2017 KAYCEE HASSAN S MEMBERSHIP ADVISOR Ot V45.81 AORTOCORONARY BYPASS 04/22/2017 KAYCEE HASSAN S MEMBERSHIP ADVISOR Ot V58.67 LONG-TERM (CURRENT) USE OF INSULIN 04/22/2017 KAYCEE HASSAN S MEMBERSHIP ADVISOR Ot V58.69 OTH MED,LT,CURRENT USE 04/22/2017 SONYA HILAH S MEMBERSHIP ADVISOR Ot 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 04/22/2017 SONYA HILAH S MEMBERSHIP ADVISOR Ot 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 04/22/2017 HASSAN HILAH S MEMBERSHIP ADVISOR Ot 250.00 DIAB OLU WO COMPL, TYPE II OR UNSPEC TY 04/22/2017 SONYA HILAH S MEMBERSHIP ADVISOR Ot 305.1 TOBACCO USE DISORDER 04/22/2017 TONJA HASSANAH S MEMBERSHIP ADVISOR Ot 401.9 HYPERTENSION NOS 04/22/2017 KAYCEE HASSAN S MEMBERSHIP ADVISOR Ot 414.00 CORON ATHEROSCLER NOS TYPE VESSEL, NATIV 04/22/2017 KAYCEE HASSAN S MEMBERSHIP ADVISOR Ot 793.11 SOLITARY PULMONARY NODULE 04/22/2017 KAYCEE HASSAN S MEMBERSHIP ADVISOR Ot V45.81 AORTOCORONARY BYPASS 04/22/2017 KAYCEE HASSAN S MEMBERSHIP ADVISOR Ot V58.67 LONG-TERM (CURRENT) USE OF INSULIN 04/22/2017 KAYCEE HASSAN S MEMBERSHIP ADVISOR Ot V58.69 OTH MED,LT,CURRENT USE 04/22/2017 KAYCEE HASSAN S MEMBERSHIP ADVISOR Ot 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 04/22/2017 KAYCEE HASSAN S MEMBERSHIP ADVISOR Ot 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 04/22/2017 KAYCEE HASSAN S MEMBERSHIP ADVISOR Ot 250.00 DIAB OLU WO COMPL, TYPE II OR UNSPEC TY 04/22/2017 TONJA HASSANAH S MEMBERSHIP ADVISOR Ot 305.1 TOBACCO USE DISORDER 04/22/2017 KAYCEE HASSAN S MEMBERSHIP ADVISOR Ot 401.9 HYPERTENSION NOS 04/22/2017 KAYCEE HASSAN S MEMBERSHIP ADVISOR Ot 414.00 CORON ATHEROSCLER NOS TYPE VESSEL, NATIV 04/22/2017 KAYCEE HASSAN S MEMBERSHIP ADVISOR Ot 793.11 SOLITARY PULMONARY NODULE 04/22/2017 KAYCEE HASSAN MEMBERSHIP ADVISOR Ot V45.81 AORTOCORONARY BYPASS 04/22/2017 KAYCEE HASSAN S MEMBERSHIP ADVISOR Ot V58.67 LONG-TERM (CURRENT) USE OF INSULIN 04/22/2017 KAYCEE HASSAN S MEMBERSHIP ADVISOR Ot V58.69 OTH MED,LT,CURRENT USE 04/22/2017 KAYCEE HASSAN S MEMBERSHIP ADVISOR Ot 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 04/22/2017 KAYCEE HASSAN S MEMBERSHIP ADVISOR Ot 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 04/22/2017 SONYA HILAH S MEMBERSHIP ADVISOR Ot 250.00 DIAB OLU WO COMPL, TYPE II OR UNSPEC TY 04/22/2017 SONYA HILAH S MEMBERSHIP ADVISOR Ot 305.1 TOBACCO USE DISORDER 04/22/2017 TONJA HASSANAH S MEMBERSHIP ADVISOR Ot 401.9 HYPERTENSION NOS 04/22/2017 TONJA HASSANAH S MEMBERSHIP ADVISOR Ot 414.00 CORON ATHEROSCLER NOS TYPE VESSEL, NATIV 04/22/2017 KAYCEE HASSAN MEMBERSHIP ADVISOR Ot 793.11 SOLITARY PULMONARY NODULE 04/22/2017 KAYCEE HASSAN MEMBERSHIP ADVISOR Ot V45.81 AORTOCORONARY BYPASS 04/22/2017 KAYCEE HASSAN MEMBERSHIP ADVISOR Ot V58.67 LONG-TERM (CURRENT) USE OF INSULIN 04/22/2017 KAYCEE HASSAN S MEMBERSHIP ADVISOR Ot V58.69 OTH MED,LT,CURRENT USE 04/22/2017 KAYCEE HASSAN S MEMBERSHIP ADVISOR Ot 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 04/22/2017 KAYCEE HASSAN S MEMBERSHIP ADVISOR Ot 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 04/22/2017 KAYCEE HASSAN S MEMBERSHIP ADVISOR Ot 250.00 DIAB OLU WO COMPL, TYPE II OR UNSPEC TY 04/22/2017 KAYCEE HASSAN S MEMBERSHIP ADVISOR Ot 305.1 TOBACCO USE DISORDER 04/22/2017 KAYCEE HASSAN S MEMBERSHIP ADVISOR Ot 401.9 HYPERTENSION NOS 04/22/2017 KAYCEE HASSAN S MEMBERSHIP ADVISOR Ot 414.00 CORON ATHEROSCLER NOS TYPE VESSEL, NATIV 04/22/2017 KAYCEE HASSAN S MEMBERSHIP ADVISOR Ot 496 CHR AIRWAY OBSTRUCT NEC 04/22/2017 KAYCEE HASSAN S MEMBERSHIP ADVISOR Ot 793.11 SOLITARY PULMONARY NODULE 04/22/2017 KAYCEE HASSAN S MEMBERSHIP ADVISOR Ot V45.81 AORTOCORONARY BYPASS 04/22/2017 KAYCEE HASSAN S MEMBERSHIP ADVISOR Ot V58.67 LONG-TERM (CURRENT) USE OF INSULIN 04/22/2017 KAYCEE HASSAN S MEMBERSHIP ADVISOR Ot V58.69 OTH MED,LT,CURRENT USE 04/22/2017 SALOME STEVE Ot 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 04/22/2017 SALOME STEVE Ot 496 CHR AIRWAY OBSTRUCT NEC 04/22/2017 SALOME STEVE Ot 787.20 DYSPHAGIA, UNSPECIFIED 04/22/2017 SALOME STEVE Ot 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 04/22/2017 ZAK BUCIO MEMBERSHIP ADVISOR Ot 250.02 DIAB OLU WO COMPL, TYPE II OR UNSPEC TY 04/22/2017 KAYCEE HASSAN S MEMBERSHIP ADVISOR Ot 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 04/22/2017 KAYCEE HASSAN S MEMBERSHIP ADVISOR Ot 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 04/22/2017 TONJA HASSANAH S MEMBERSHIP ADVISOR Ot 250.00 DIAB OLU WO COMPL, TYPE II OR UNSPEC TY 04/22/2017 TONJA HASSANAH S MEMBERSHIP ADVISOR Ot 305.1 TOBACCO USE DISORDER 04/22/2017 KAYCEE HASSAN S MEMBERSHIP ADVISOR Ot 401.9 HYPERTENSION NOS 04/22/2017 TONJA HASSANAH S MEMBERSHIP ADVISOR Ot 414.00 CORON ATHEROSCLER NOS TYPE VESSEL, NATIV 04/22/2017 KAYCEE HASSAN S MEMBERSHIP ADVISOR Ot 496 CHR AIRWAY OBSTRUCT NEC 04/22/2017 KAYCEE HASSAN S MEMBERSHIP ADVISOR Ot 793.11 SOLITARY PULMONARY NODULE 04/22/2017 KAYCEE HASSAN S MEMBERSHIP ADVISOR Ot V45.81 AORTOCORONARY BYPASS 04/22/2017 KAYCEE HASSAN S MEMBERSHIP ADVISOR Ot V58.67 LONG-TERM (CURRENT) USE OF INSULIN 04/22/2017 KAYCEE HASSAN S MEMBERSHIP ADVISOR Ot V58.69 OTH MED,LT,CURRENT USE 04/22/2017 KAYCEE HASSAN S MEMBERSHIP ADVISOR Ot 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 04/22/2017 KAYCEE HASSAN S MEMBERSHIP ADVISOR Ot 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 04/22/2017 KAYCEE HASSAN S MEMBERSHIP ADVISOR Ot 250.00 DIAB OLU WO COMPL, TYPE II OR UNSPEC TY 04/22/2017 KAYCEE HASSAN S MEMBERSHIP ADVISOR Ot 305.1 TOBACCO USE DISORDER 04/22/2017 KAYCEE HASSAN S MEMBERSHIP ADVISOR Ot 401.9 HYPERTENSION NOS 04/22/2017 KAYCEE HASSAN S MEMBERSHIP ADVISOR Ot 414.00 CORON ATHEROSCLER NOS TYPE VESSEL, NATIV 04/22/2017 KAYCEE HASSAN S MEMBERSHIP ADVISOR Ot 496 CHR AIRWAY OBSTRUCT NEC 04/22/2017 KAYCEE HASSAN S MEMBERSHIP ADVISOR Ot 793.11 SOLITARY PULMONARY NODULE 04/22/2017 KAYCEE HASSAN S MEMBERSHIP ADVISOR Ot V45.81 AORTOCORONARY BYPASS 04/22/2017 KAYCEE HASSAN S MEMBERSHIP ADVISOR Ot V58.67 LONG-TERM (CURRENT) USE OF INSULIN 04/22/2017 KAYCEE HASSAN S MEMBERSHIP ADVISOR Ot V58.69 OTH MED,LT,CURRENT USE 04/22/2017 TONJA HASASNAH S MEMBERSHIP ADVISOR Ot 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 04/22/2017 STEF MAI MD Ot 793.19 OTHER NONSPECIFIC ABNORMAL FINDING OF [place] 04/22/2017 STEF MAI MD Ot V72.63 PRE-PROCEDURAL LABORATORY EXAMINATION 04/22/2017 STEF MAI MD Ot V72.81 [id number] CARDIOVASCULAR 04/22/2017 STEF MAI MD Ot V74.8 SCREEN-BACTERIAL DIS NEC 04/22/2017 KYLIE TAYLOR MD Ot 272.4 HYPERLIPIDEMIA NEC/NOS 04/22/2017 KYLIE TAYLOR MD Ot 401.9 HYPERTENSION NOS 04/22/2017 KYLIE TAYLOR MD Ot 414.00 CORON ATHEROSCLER NOS TYPE VESSEL, NATIV 04/22/2017 KAYCEE HASSAN MEMBERSHIP ADVISOR Ot 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 04/22/2017 KAYCEE HASSAN MEMBERSHIP ADVISOR Ot 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 04/22/2017 KAYCEE HASSAN MEMBERSHIP ADVISOR Ot 250.00 DIAB OLU WO COMPL, TYPE II OR UNSPEC TY 04/22/2017 KAYCEE HASSAN MEMBERSHIP ADVISOR Ot 305.1 TOBACCO USE DISORDER 04/22/2017 KAYCEE HASSAN MEMBERSHIP ADVISOR Ot 401.9 HYPERTENSION NOS 04/22/2017 KAYCEE HASSAN MEMBERSHIP ADVISOR Ot 414.00 CORON ATHEROSCLER NOS TYPE VESSEL, NATIV 04/22/2017 KAYCEE HASSAN MEMBERSHIP ADVISOR Ot 496 CHR AIRWAY OBSTRUCT NEC 04/22/2017 KAYCEE HASSAN MEMBERSHIP ADVISOR Ot 793.11 SOLITARY PULMONARY NODULE 04/22/2017 KAYCEE HASSAN MEMBERSHIP ADVISOR Ot V45.81 AORTOCORONARY BYPASS 04/22/2017 KAYCEE HASSAN MEMBERSHIP ADVISOR Ot V58.67 LONG-TERM (CURRENT) USE OF INSULIN 04/22/2017 KAYCEE HASSAN MEMBERSHIP ADVISOR Ot V58.69 OT MED,LT,CURRENT USE 04/22/2017 KAYCEE HASSAN MEMBERSHIP ADVISOR Ot 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 04/22/2017 KAYCEE HASSAN MEMBERSHIP ADVISOR Ot 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 04/22/2017 KAYCEE HASSAN S MEMBERSHIP ADVISOR Ot 250.00 DIAB OLU WO COMPL, TYPE II OR UNSPEC TY 04/22/2017 KAYCEE HASSAN S MEMBERSHIP ADVISOR Ot 305.1 TOBACCO USE DISORDER 04/22/2017 KAYCEE HASSAN MEMBERSHIP ADVISOR Ot 401.9 HYPERTENSION NOS 04/22/2017 KAYCEE HASSAN MEMBERSHIP ADVISOR Ot 414.00 CORON ATHEROSCLER NOS TYPE VESSEL, NATIV 04/22/2017 KAYCEE HASSANP Ot 496 CHR AIRWAY OBSTRUCT NEC 04/22/2017 KAYCEE HASSANP Ot 793.11 SOLITARY PULMONARY NODULE 04/22/2017 KAYCEE HASSANP Ot V45.81 AORTOCORONARY BYPASS 04/22/2017 KAYCEE HASSAN MEMBERSHIP ADVISOR Ot V58.67 LONG-TERM (CURRENT) USE OF INSULIN 04/22/2017 KAYCEE HASSAN MEMBERSHIP ADVISOR Ot V58.69 OTH MED,LT,CURRENT USE 04/22/2017 KAYCEE HASSAN MEMBERSHIP ADVISOR Ot V58.81 FIT/ADJ VASCULAR CATHETER 04/22/2017 KAYCEE HASSANP Ot 141.9 MALIG HILARIO TONGUE NOS 04/22/2017 KAYCEE HASSANP Ot 793.11 SOLITARY PULMONARY NODULE 04/22/2017 Ot 786.6 CHEST SWELLING/MASS/LUMP 04/22/2017 Ot V72.63 PRE- PROCEDURAL LABORATORY EXAMINATION 04/22/2017 Ot V72.81 EXAM-PRE- OPERATIVE CARDIOVASCULAR 04/22/2017 Ot V72.83 EXAM PRE- OPERATIVE NEC 04/22/2017 DARIAN JESSICA MD Ot 162.9 MAL HILARIO BRONCH/LUNG NOS 04/22/2017 DARIAN JESSICA MD Ot 414.01 CORONARY ATHEROSCLEROSIS OF [place] CORON 04/22/2017 DARIAN JESSICA MD Ot 782.3 EDEMA 04/22/2017 SALOME STEVE Ot 793.11 SOLITARY PULMONARY NODULE 04/22/2017 CLAUDIA CUTLER, KYLIE Dawson Ot 250.00 DIAB OLU WO COMPL, TYPE II OR UNSPEC TY 04/22/2017 KYLIE TAYLOR MD Ot 401.9 HYPERTENSION NOS 04/22/2017 KYLIE TAYLOR MD Ot 414.00 CORON ATHEROSCLER NOS TYPE VESSEL, NATIV 04/22/2017 KYLIE TAYLOR MD Ot 428.0 CONGESTIVE HEART FAILURE NOS 04/22/2017 KYLIE TAYLOR MD Ot V58.67 LONG-TERM (CURRENT) USE OF INSULIN 04/22/2017 KAYCEE HASSAN MEMBERSHIP ADVISOR Ot 162.9 MAL HILARIO BRONCH/LUNG NOS 04/22/2017 KAYCEE HASSAN MEMBERSHIP ADVISOR Ot C34.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 04/22/2017 KAYCEE HASSAN MEMBERSHIP ADVISOR Ot 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 OF SUPRAGLOTTIS 04/22/2017 KAYCEE HASSANP Ot Z12.31 ENCNTR SCREEN MAMMOGRAM FOR MALIGNANT NE 04/22/2017 KAYCEE HASSANP Ot 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 OF SUPRAGLOTTIS 04/22/2017 LILLY LEE DO Ot Z01.818 ENCOUNTER FOR OTHER PREPROCEDURAL EXAMIN 04/22/2017 SALOME STEVE Ot 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 OF SUPRAGLOTTIS 04/22/2017 LILIAN TREJO DO Ot 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 OF SUPRAGLOTTIS 04/22/2017 LILIAN TREJO DO Ot C34.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 NEOPLASM OF UPPER LOBE, LEFT B 04/22/2017 LILIAN TREJO DO Ot 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 OF SUPRAGLOTTIS 04/22/2017 LILIAN TREJO DO Ot C34.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 NEOPLASM OF UPPER LOBE, LEFT B 04/22/2017 KAYCEE HASSAN MEMBERSHIP ADVISOR Ot 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 OF SUPRAGLOTTIS 04/22/2017 KAYCEE HASSANP Ot C34.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 NEOPLASM OF UPPER LOBE, LEFT B 04/22/2017 KAYCEE HASSANP Ot M25.552 PAIN IN LEFT HIP 04/22/2017 ANAIS ANGULO MD Ot 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 OF SUPRAGLOTTIS 04/22/2017 ANAIS ANGULO MD Ot Z09 ENCNTR FOR F/U EXAM AFT TRTMT FOR COND O 04/22/2017 ANAIS ANGULO MD Ot Z96.89 PRESENCE OF OTHER SPECIFIED FUNCTIONAL I 04/22/2017 SERGEI CUTLER, STEF Arriola Ot 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 OF SUPRAGLOTTIS 04/22/2017 ROBERTO CLANCY MEMBERSHIP ADVISOR Ot Z12.31 ENCNTR SCREEN MAMMOGRAM FOR MALIGNANT NE 04/22/2017 KAYCEE HASSAN MEMBERSHIP ADVISOR Ot 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 OF SUPRAGLOTTIS 04/22/2017 KAYCEE HASSAN MEMBERSHIP ADVISOR Ot C34.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 NEOPLASM OF UPPER LOBE, LEFT B 04/22/2017 KAYCEE HASSAN MEMBERSHIP ADVISOR Ot 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 OF SUPRAGLOTTIS 04/22/2017 KAYCEE HASSAN MEMBERSHIP ADVISOR Ot C34.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 NEOPLASM OF UPPER LOBE, LEFT B 04/22/2017 SALOME STEVE Miguel A Ot 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 OF SUPRAGLOTTIS 04/22/2017 POWER SALOME N Ot C34.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 NEOPLASM OF UPPER LOBE, LEFT B 04/22/2017 POWER SALOME N Ot E11.43 TYPE 2 DIABETES W DIABETIC AUTONOMIC (PO 04/22/2017 PIOTR STEVEBRANDO Grady Ot E78.5 HYPERLIPIDEMIA, UNSPECIFIED 04/22/2017 POWER SALOME Grady Ot E83.42 HYPOMAGNESEMIA 04/22/2017 POWER SALOME Grady Ot F17.210 NICOTINE DEPENDENCE, CIGARETTES, UNCOMPL 04/22/2017 POWER SALOME N Ot I10 ESSENTIAL (PRIMARY) HYPERTENSION 04/22/2017 POWER SALOME Grady Ot I25.10 ATHSCL HEART DISEASE OF [place] CORONARY 04/22/2017 SALOME STEVE Miguel A Ot J43.9 EMPHYSEMA, UNSPECIFIED 04/22/2017 SALOME STEVE N Ot Z79.899 OTHER ALF (CURRENT) DRUG THERAPY 04/22/2017 SALOME STEVE Miguel A Ot Z92.21 PERSONAL HISTORY OF ANTINEOPLASTIC CHEMO 04/22/2017 SALOME STEVE N Ot Z92.3 PERSONAL HISTORY OF IRRADIATION 04/28/2017 KAYCEE HASSAN MEMBERSHIP ADVISOR Ot 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 OF SUPRAGLOTTIS 04/28/2017 KAYCEE HASSAN MEMBERSHIP ADVISOR Ot C34.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 NEOPLASM OF UPPER LOBE, LEFT B 05/12/2017 KAYCEE HASSAN MEMBERSHIP ADVISOR Ot 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 OF SUPRAGLOTTIS 05/12/2017 KAYCEE HASSAN MEMBERSHIP ADVISOR Ot C34.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 NEOPLASM OF UPPER LOBE, LEFT B 05/15/2017 POWER SALOME Grady Ot 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 OF SUPRAGLOTTIS 05/15/2017 POWER SALOME N Ot C34.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 NEOPLASM OF UPPER LOBE, LEFT B 05/15/2017 POWER SALOME Grady Ot E11.43 TYPE 2 DIABETES W DIABETIC AUTONOMIC (PO 05/15/2017 SALOME STEVE Ot E78.5 HYPERLIPIDEMIA, UNSPECIFIED 05/15/2017 SALOME STEVE Ot E83.42 HYPOMAGNESEMIA 05/15/2017 SALOME STEVE Ot F17.210 NICOTINE DEPENDENCE, CIGARETTES, UNCOMPL 05/15/2017 SALOME STEVE Ot I10 ESSENTIAL (PRIMARY) HYPERTENSION 05/15/2017 SALOME STEVE Ot I25.10 ATHSCL HEART DISEASE OF [place] CORONARY 05/15/2017 SALOME STEVE Ot J43.9 EMPHYSEMA, UNSPECIFIED 05/15/2017 SALOME STEVE Ot Z79.899 OTHER ALF (CURRENT) DRUG THERAPY 05/15/2017 SALOME STEVE Ot Z92.21 PERSONAL HISTORY OF ANTINEOPLASTIC CHEMO 05/15/2017 SALOME STEVE Ot Z92.3 PERSONAL HISTORY OF IRRADIATION 06/05/2017 KAYCEE HASSAN MEMBERSHIP ADVISOR Ot 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 OF SUPRAGLOTTIS 06/05/2017 KAYCEE HASSANP Ot C34.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 NEOPLASM OF UPPER LOBE, LEFT B 06/05/2017 KAYCEE HASSANP Ot M25.552 PAIN IN LEFT HIP 06/05/2017 ADELE CUTLER, ANAIS Nicholas Ot 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 OF SUPRAGLOTTIS 06/05/2017 ANAIS ANGULO MD Ot Z09 ENCNTR FOR F/U EXAM AFT TRTMT FOR COND O 06/05/2017 ANAIS ANGULO MD Ot Z96.89 PRESENCE OF OTHER SPECIFIED FUNCTIONAL I 06/05/2017 SERGEI CUTLER, STEF Arriola Ot 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 OF SUPRAGLOTTIS 06/05/2017 ROBERTO CLANCY MEMBERSHIP ADVISOR Ot Z12.31 ENCNTR SCREEN MAMMOGRAM FOR MALIGNANT NE 06/05/2017 KAYCEE HASSAN MEMBERSHIP ADVISOR Ot 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 OF SUPRAGLOTTIS 06/05/2017 KAYCEE HASSANP Ot C34.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 NEOPLASM OF UPPER LOBE, LEFT B 06/05/2017 KAYCEE HASSANP Ot 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 OF SUPRAGLOTTIS 06/05/2017 KAYCEE HASSAN MEMBERSHIP ADVISOR Ot C34.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 NEOPLASM OF UPPER LOBE, LEFT B 06/05/2017 SALOME STEVE Miguel A Ot 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 OF SUPRAGLOTTIS 06/05/2017 SALOME STEVE Ot C34.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 NEOPLASM OF UPPER LOBE, LEFT B 06/05/2017 SALOME STEVE Ot E11.43 TYPE 2 DIABETES W DIABETIC AUTONOMIC (PO 06/05/2017 SALOME STEVE Ot E78.5 HYPERLIPIDEMIA, UNSPECIFIED 06/05/2017 SALOME STEVE Ot E83.42 HYPOMAGNESEMIA 06/05/2017 SALOME STEVE Ot F17.210 NICOTINE DEPENDENCE, CIGARETTES, UNCOMPL 06/05/2017 SALOME STEVE Ot I10 ESSENTIAL (PRIMARY) HYPERTENSION 06/05/2017 SALOME STEVE Ot I25.10 ATHSCL HEART DISEASE OF [place] CORONARY 06/05/2017 SALOME STEVE Ot J43.9 EMPHYSEMA, UNSPECIFIED 06/05/2017 SALOME STEVE Ot Z79.899 OTHER ALF (CURRENT) DRUG THERAPY 06/05/2017 SALOME STEVE Ot Z92.21 PERSONAL HISTORY OF ANTINEOPLASTIC CHEMO 06/05/2017 SALOME STEVE Miguel A Ot Z92.3 PERSONAL HISTORY OF IRRADIATION 06/10/2017 ROBERTO CLANCY Ot Z12.31 ENCNTR SCREEN MAMMOGRAM FOR MALIGNANT NE 06/12/2017 KAYCEE HASSAN Ot 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 OF SUPRAGLOTTIS 06/12/2017 KAYCEE HASSANP Ot C34.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 NEOPLASM OF UPPER LOBE, LEFT B 06/12/2017 KAYCEE HASSAN Ot M25.552 PAIN IN LEFT HIP 06/12/2017 ANAIS ANGULO MD Ot 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 OF SUPRAGLOTTIS 06/12/2017 ANAIS ANGULO MD Ot Z09 ENCNTR FOR F/U EXAM AFT TRTMT FOR COND O 06/12/2017 ANAIS ANGULO MD Ot Z96.89 PRESENCE OF OTHER SPECIFIED FUNCTIONAL I 06/12/2017 SERGEI CUTLER, STEF Arriola Ot 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 OF SUPRAGLOTTIS 06/12/2017 ROBERTO CLANCYP Ot Z12.31 ENCNTR SCREEN MAMMOGRAM FOR MALIGNANT NE 06/12/2017 HASSAN, HILAH S MEMBERSHIP ADVISOR Ot 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 OF SUPRAGLOTTIS 06/12/2017 KAYCEE HASSAN MEMBERSHIP ADVISOR Ot C34.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 NEOPLASM OF UPPER LOBE, LEFT B 06/12/2017 KAYCEE HASSAN MEMBERSHIP ADVISOR Ot 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 OF SUPRAGLOTTIS 06/12/2017 KAYCEE HASSAN MEMBERSHIP ADVISOR Ot C34.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 NEOPLASM OF UPPER LOBE, LEFT B 06/12/2017 SALOME STEVE Miguel A Ot 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 OF SUPRAGLOTTIS 06/12/2017 SALOME STEVE N Ot C34.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 NEOPLASM OF UPPER LOBE, LEFT B 06/12/2017 SALOME STEVE Miguel A Ot E11.43 TYPE 2 DIABETES W DIABETIC AUTONOMIC (PO 06/12/2017 SALOME STEVE Miguel A Ot E78.5 HYPERLIPIDEMIA, UNSPECIFIED 06/12/2017 SALOME STEVE N Ot E83.42 HYPOMAGNESEMIA 06/12/2017 SALOME STEVE Miguel A Ot F17.210 NICOTINE DEPENDENCE, CIGARETTES, UNCOMPL 06/12/2017 SALOME STEVE Miguel A Ot I10 ESSENTIAL (PRIMARY) HYPERTENSION 06/12/2017 SALOME STEVE N Ot I25.10 ATHSCL HEART DISEASE OF [place] CORONARY 06/12/2017 SALOME STEVE Miguel A Ot J43.9 EMPHYSEMA, UNSPECIFIED 06/12/2017 SALOME STEVE N Ot Z79.899 OTHER BOOKSEAMER BLINDSTITCH (CURRENT) DRUG THERAPY 06/12/2017 SALOME STEVE Miguel A Ot Z92.21 PERSONAL HISTORY OF ANTINEOPLASTIC CHEMO 06/12/2017 SALOME STEVE Miguel A Ot Z92.3 PERSONAL HISTORY OF IRRADIATION 06/12/2017 JEZL ROBERTO L MEMBERSHIP ADVISOR Ot R10.10 UPPER ABDOMINAL PAIN, UNSPECIFIED 06/12/2017 MADL, ROBERTO L MEMBERSHIP ADVISOR Ot R74.8 ABNORMAL LEVELS OF OTHER SERUM ENZYMES 06/12/2017 JEZL, ROBERTO L MEMBERSHIP ADVISOR Ot Z85.118 PERSONAL HISTORY OF MALIGNANT NEOPLASM O 06/12/2017 MADL, ROBERTO L MEMBERSHIP ADVISOR Ot Z85.21 PERSONAL HISTORY OF MALIGNANT NEOPLASM O 06/12/2017 MADL, ROBERTO L MEMBERSHIP ADVISOR Ot Z90.49 ACQUIRED ABSENCE OF OTHER SPECIFIED PART 06/12/2017 MADL ROBERTO L MEMBERSHIP ADVISOR Ot Z12.31 ENCNTR SCREEN MAMMOGRAM FOR MALIGNANT NE 06/30/2017 ROBERTO CLANCY MEMBERSHIP ADVISOR Ot R10.10 UPPER ABDOMINAL PAIN, UNSPECIFIED 06/30/2017 ROBERTO CLANCY MEMBERSHIP ADVISOR Ot R74.8 ABNORMAL LEVELS OF OTHER SERUM ENZYMES 06/30/2017 ROBERTO CLANCY MEMBERSHIP ADVISOR Ot Z85.118 PERSONAL HISTORY OF MALIGNANT NEOPLASM O 06/30/2017 ROBERTO CLANCY MEMBERSHIP ADVISOR Ot Z85.21 PERSONAL HISTORY OF MALIGNANT NEOPLASM O 06/30/2017 ROBERTO CLANCY MEMBERSHIP ADVISOR Ot Z90.49 ACQUIRED ABSENCE OF OTHER SPECIFIED PART 07/02/2017 SALOME STEVE Miguel A Ot 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 OF SUPRAGLOTTIS 07/02/2017 POWERPIOTRBRANDO Miguel A Ot C34.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 NEOPLASM OF UPPER LOBE, LEFT B 07/02/2017 POWERSALOME PHILLIPS Miguel A Ot E11.43 TYPE 2 DIABETES W DIABETIC AUTONOMIC (PO 07/02/2017 POWER SALOME Miguel A Ot E78.5 HYPERLIPIDEMIA, UNSPECIFIED 07/02/2017 POWER SALOME Miguel A Ot E83.42 HYPOMAGNESEMIA 07/02/2017 POWERSALOME PHILLIPS Miguel A Ot F17.210 NICOTINE DEPENDENCE, CIGARETTES, UNCOMPL 07/02/2017 POWERSALOME PHILLIPS Miguel A Ot I10 ESSENTIAL (PRIMARY) HYPERTENSION 07/02/2017 POWER SALOME Miguel A Ot I25.10 ATHSCL HEART DISEASE OF [place] CORONARY 07/02/2017 SALOME STEVE Miguel A Ot J43.9 EMPHYSEMA, UNSPECIFIED 07/02/2017 SALOME STEVE Miguel A Ot Z79.899 OTHER BOOKSEAMER BLINDSTITCH (CURRENT) DRUG THERAPY 07/02/2017 SALOME STEVE Miguel A Ot Z92.21 PERSONAL HISTORY OF ANTINEOPLASTIC CHEMO 07/02/2017 POWERSALOME PHILLIPS N Ot Z92.3 PERSONAL HISTORY OF IRRADIATION 07/03/2017 ROBERTO CLANCY MEMBERSHIP ADVISOR Ot Z12.31 ENCNTR SCREEN MAMMOGRAM FOR MALIGNANT NE 07/07/2017 NALINI JOHNS DO S Ot 246.2 CYST OF THYROID 07/07/2017 NALINI JOHNS DO S Ot 787.20 DYSPHAGIA, UNSPECIFIED 07/07/2017 SERGEI CUTLER, STEF P Ot 241.0 NONTOX UNINODULAR GOITER 07/07/2017 STEF MAI MD Ot 492.8 EMPHYSEMA NEC 07/07/2017 STEF MAI MD Ot 784.2 SWELLING IN HEAD NECK 07/07/2017 STEF MAI MD Ot 785.6 ENLARGEMENT LYMPH NODES 07/07/2017 STEF MAI MD Ot 787.20 DYSPHAGIA, UNSPECIFIED 07/07/2017 STEF MAI MD Ot 240.9 GOITER NOS 07/07/2017 STEF MAI MD Ot 780.79 OTH MALAISE FATIGUE 07/07/2017 STEF MAI MD Ot 784.42 DYSPHONIA 07/07/2017 JAMES CUTLER, ALBA Zamora Ot 401.9 HYPERTENSION NOS 07/07/2017 ALBA RAMIREZ MD Ot 414.00 CORON ATHEROSCLER NOS TYPE VESSEL, NATIV 07/07/2017 ALBA RAMIREZ MD Ot 794.30 ABN CARDIOVASC STUDY NOS 07/07/2017 SHARLENE CUTLER, MAGAN E Ot 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 07/07/2017 LILLY LEE DO Ot 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 07/07/2017 LILLY LEE DO Ot V72.63 PRE-PROCEDURAL LABORATORY EXAMINATION 07/07/2017 LILLY LEE DO Ot V72.84 EXAM PRE-OPERATIVE NOS 07/07/2017 KAYCEE HASSAN MEMBERSHIP ADVISOR Ot 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 07/07/2017 KAYCEE HASSAN MEMBERSHIP ADVISOR Ot 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 07/07/2017 KAYCEE HASSANP Ot 250.00 DIAB OLU WO COMPL, TYPE II OR UNSPEC TY 07/07/2017 KAYCEE HASSAN MEMBERSHIP ADVISOR Ot 305.1 TOBACCO USE DISORDER 07/07/2017 KAYCEE HASSANP Ot 401.9 HYPERTENSION NOS 07/07/2017 KAYCEE HASSANP Ot 414.00 CORON ATHEROSCLER NOS TYPE VESSEL, NATIV 07/07/2017 KAYCEE HASSANP Ot 793.11 SOLITARY PULMONARY NODULE 07/07/2017 KAYCEE HASSANP Ot V45.81 AORTOCORONARY BYPASS 07/07/2017 KAYCEE HASSAN MEMBERSHIP ADVISOR Ot V58.67 LONG-TERM (CURRENT) USE OF INSULIN 07/07/2017 HASSAN, HILAH S MEMBERSHIP ADVISOR Ot V58.69 OTH MED,LT,CURRENT USE 07/07/2017 HASSAN, HILAH S MEMBERSHIP ADVISOR Ot 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 07/07/2017 HASSAN, HILAH S MEMBERSHIP ADVISOR Ot 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 07/07/2017 HASSAN, HILAH S MEMBERSHIP ADVISOR Ot 250.00 DIAB OLU WO COMPL, TYPE II OR UNSPEC TY 07/07/2017 HASSAN, HILAH S MEMBERSHIP ADVISOR Ot 305.1 TOBACCO USE DISORDER 07/07/2017 TONJA HASSANAH S MEMBERSHIP ADVISOR Ot 401.9 HYPERTENSION NOS 07/07/2017 HASSAN, HILAH S MEMBERSHIP ADVISOR Ot 414.00 CORON ATHEROSCLER NOS TYPE VESSEL, NATIV 07/07/2017 SONYA HILAH S MEMBERSHIP ADVISOR Ot 793.11 SOLITARY PULMONARY NODULE 07/07/2017 SONYA HILAH S MEMBERSHIP ADVISOR Ot V45.81 AORTOCORONARY BYPASS 07/07/2017 SONYA HILAH S MEMBERSHIP ADVISOR Ot V58.67 LONG-TERM (CURRENT) USE OF INSULIN 07/07/2017 TONJA HASSANAH S MEMBERSHIP ADVISOR Ot V58.69 OTH MED,LT,CURRENT USE 07/07/2017 TONJA HASSANAH S MEMBERSHIP ADVISOR Ot 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 07/07/2017 TONJA HASSANAH S MEMBERSHIP ADVISOR Ot 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 07/07/2017 SONYA HILAH S MEMBERSHIP ADVISOR Ot 250.00 DIAB OLU WO COMPL, TYPE II OR UNSPEC TY 07/07/2017 SONYA HILAH S MEMBERSHIP ADVISOR Ot 305.1 TOBACCO USE DISORDER 07/07/2017 TONJA HASSANAH S MEMBERSHIP ADVISOR Ot 401.9 HYPERTENSION NOS 07/07/2017 HASSAN HILAH S MEMBERSHIP ADVISOR Ot 414.00 CORON ATHEROSCLER NOS TYPE VESSEL, NATIV 07/07/2017 HASSAN HILAH S MEMBERSHIP ADVISOR Ot 793.11 SOLITARY PULMONARY NODULE 07/07/2017 HASSAN HILAH S MEMBERSHIP ADVISOR Ot V45.81 AORTOCORONARY BYPASS 07/07/2017 HASSAN HILAH S MEMBERSHIP ADVISOR Ot V58.67 LONG-TERM (CURRENT) USE OF INSULIN 07/07/2017 SONYA HILAH S MEMBERSHIP ADVISOR Ot V58.69 OTH MED,LT,CURRENT USE 07/07/2017 HASSAN, HILAH S MEMBERSHIP ADVISOR Ot 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 07/07/2017 HASSAN, HILAH S MEMBERSHIP ADVISOR Ot 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 07/07/2017 HASSAN, HILAH S MEMBERSHIP ADVISOR Ot 250.00 DIAB OLU WO COMPL, TYPE II OR UNSPEC TY 07/07/2017 SONYA HILAH S MEMBERSHIP ADVISOR Ot 305.1 TOBACCO USE DISORDER 07/07/2017 TONJA HASSANAH S MEMBERSHIP ADVISOR Ot 401.9 HYPERTENSION NOS 07/07/2017 SONYA HILAH S MEMBERSHIP ADVISOR Ot 414.00 CORON ATHEROSCLER NOS TYPE VESSEL, NATIV 07/07/2017 SONYA HILAH S MEMBERSHIP ADVISOR Ot 793.11 SOLITARY PULMONARY NODULE 07/07/2017 SONYA HILAH S MEMBERSHIP ADVISOR Ot V45.81 AORTOCORONARY BYPASS 07/07/2017 SONYA HILAH S MEMBERSHIP ADVISOR Ot V58.67 LONG-TERM (CURRENT) USE OF INSULIN 07/07/2017 SONYA HILAH S MEMBERSHIP ADVISOR Ot V58.69 OTH MED,LT,CURRENT USE 07/07/2017 KAYCEE HASSAN S MEMBERSHIP ADVISOR Ot 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 07/07/2017 TONJA HASSANAH S MEMBERSHIP ADVISOR Ot 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 07/07/2017 TONJA HASSANAH S MEMBERSHIP ADVISOR Ot 250.00 DIAB OLU WO COMPL, TYPE II OR UNSPEC TY 07/07/2017 SONYA HILAH S MEMBERSHIP ADVISOR Ot 305.1 TOBACCO USE DISORDER 07/07/2017 TONJA HASSANAH S MEMBERSHIP ADVISOR Ot 401.9 HYPERTENSION NOS 07/07/2017 TONJA HASSANAH S MEMBERSHIP ADVISOR Ot 414.00 CORON ATHEROSCLER NOS TYPE VESSEL, NATIV 07/07/2017 TONJA HASSANAH S MEMBERSHIP ADVISOR Ot 793.11 SOLITARY PULMONARY NODULE 07/07/2017 SONYA HILAH S MEMBERSHIP ADVISOR Ot V45.81 AORTOCORONARY BYPASS 07/07/2017 HASSAN, HILAH S MEMBERSHIP ADVISOR Ot V58.67 LONG-TERM (CURRENT) USE OF INSULIN 07/07/2017 HASSAN HILAH S MEMBERSHIP ADVISOR Ot V58.69 OTH MED,LT,CURRENT USE 07/07/2017 HASSAN, HILAH S MEMBERSHIP ADVISOR Ot 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 07/07/2017 SONYA HILAH S MEMBERSHIP ADVISOR Ot 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 07/07/2017 KAYCEE HASSAN S MEMBERSHIP ADVISOR Ot 250.00 DIAB OLU WO COMPL, TYPE II OR UNSPEC TY 07/07/2017 KAYCEE HASSAN S MEMBERSHIP ADVISOR Ot 305.1 TOBACCO USE DISORDER 07/07/2017 KAYCEE HASSAN S MEMBERSHIP ADVISOR Ot 401.9 HYPERTENSION NOS 07/07/2017 KAYCEE HASSAN S MEMBERSHIP ADVISOR Ot 414.00 CORON ATHEROSCLER NOS TYPE VESSEL, NATIV 07/07/2017 KAYCEE HASSAN S MEMBERSHIP ADVISOR Ot 496 CHR AIRWAY OBSTRUCT NEC 07/07/2017 KAYCEE HASSAN S MEMBERSHIP ADVISOR Ot 793.11 SOLITARY PULMONARY NODULE 07/07/2017 KAYCEE HASSAN S MEMBERSHIP ADVISOR Ot V45.81 AORTOCORONARY BYPASS 07/07/2017 KAYCEE HASSAN S MEMBERSHIP ADVISOR Ot V58.67 LONG-TERM (CURRENT) USE OF INSULIN 07/07/2017 KAYCEE HASSAN S MEMBERSHIP ADVISOR Ot V58.69 OT MED,LT,CURRENT USE 07/07/2017 SALOME STEVE N Ot 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 07/07/2017 SALOME STEVE N Ot 496 CHR AIRWAY OBSTRUCT NEC 07/07/2017 SALOME STEVE N Ot 787.20 DYSPHAGIA, UNSPECIFIED 07/07/2017 SALOME STEVE N Ot 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 07/07/2017 ZAK BUCIO MEMBERSHIP ADVISOR Ot 250.02 DIAB OLU WO COMPL, TYPE II OR UNSPEC TY 07/07/2017 KAYCEE HASSAN S MEMBERSHIP ADVISOR Ot 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 07/07/2017 KAYCEE HASSAN MEMBERSHIP ADVISOR Ot 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 07/07/2017 KAYCEE HASSAN S MEMBERSHIP ADVISOR Ot 250.00 DIAB OLU WO COMPL, TYPE II OR UNSPEC TY 07/07/2017 KAYCEE HASSAN S MEMBERSHIP ADVISOR Ot 305.1 TOBACCO USE DISORDER 07/07/2017 KAYCEE HASSAN S MEMBERSHIP ADVISOR Ot 401.9 HYPERTENSION NOS 07/07/2017 KAYCEE HASSAN S MEMBERSHIP ADVISOR Ot 414.00 CORON ATHEROSCLER NOS TYPE VESSEL, NATIV 07/07/2017 KAYCEE HASSAN S MEMBERSHIP ADVISOR Ot 496 CHR AIRWAY OBSTRUCT NEC 07/07/2017 KAYCEE HASSAN S MEMBERSHIP ADVISOR Ot 793.11 SOLITARY PULMONARY NODULE 07/07/2017 TONJA HASSANBOB S MEMBERSHIP ADVISOR Ot V45.81 AORTOCORONARY BYPASS 07/07/2017 TONJA HASSANBOB S MEMBERSHIP ADVISOR Ot V58.67 LONG-TERM (CURRENT) USE OF INSULIN 07/07/2017 TONJA HASSANBOB S MEMBERSHIP ADVISOR Ot V58.69 OTH MED,LT,CURRENT USE 07/07/2017 KAYCEE HASSAN S MEMBERSHIP ADVISOR Ot 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 07/07/2017 KAYCEE HASSAN S MEMBERSHIP ADVISOR Ot 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 07/07/2017 TONJA HASSANBOB S MEMBERSHIP ADVISOR Ot 250.00 DIAB OLU WO COMPL, TYPE II OR UNSPEC TY 07/07/2017 KAYCEE HASSAN S MEMBERSHIP ADVISOR Ot 305.1 TOBACCO USE DISORDER 07/07/2017 KAYCEE HASSAN S MEMBERSHIP ADVISOR Ot 401.9 HYPERTENSION NOS 07/07/2017 KAYCEE HASSAN S MEMBERSHIP ADVISOR Ot 414.00 CORON ATHEROSCLER NOS TYPE VESSEL, NATIV 07/07/2017 KAYCEE HASSAN S MEMBERSHIP ADVISOR Ot 496 CHR AIRWAY OBSTRUCT NEC 07/07/2017 TONJA HASSANBOB S MEMBERSHIP ADVISOR Ot 793.11 SOLITARY PULMONARY NODULE 07/07/2017 KAYCEE HASSAN MEMBERSHIP ADVISOR Ot V45.81 AORTOCORONARY BYPASS 07/07/2017 KAYCEE HASSAN MEMBERSHIP ADVISOR Ot V58.67 LONG-TERM (CURRENT) USE OF INSULIN 07/07/2017 KACYEE HASSAN S MEMBERSHIP ADVISOR Ot V58.69 OTH MED,LT,CURRENT USE 07/07/2017 KAYCEE HASSAN S MEMBERSHIP ADVISOR Ot 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 07/07/2017 STEF MAI MD Ot 793.19 OTHER NONSPECIFIC ABNORMAL FINDING OF DAISHA 07/07/2017 STEF MAI MD Ot V72.63 PRE-PROCEDURAL LABORATORY EXAMINATION 07/07/2017 STEF MAI MD Ot V72.81 AHTW-AQP-YPANEYQJH CARDIOVASCULAR 07/07/2017 STEF MAI MD Ot V74.8 SCREEN-BACTERIAL DIS NEC 07/07/2017 KYLIE TAYLOR MD Ot 272.4 HYPERLIPIDEMIA NEC/NOS 07/07/2017 KYLIE TAYLOR MD Ot 401.9 HYPERTENSION NOS 07/07/2017 CLAUDIA MD, BASHAR J Ot 414.00 CORON ATHEROSCLER NOS TYPE VESSEL, NATIV 07/07/2017 KAYCEE HASSAN S MEMBERSHIP ADVISOR Ot 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 07/07/2017 TONJA HASSANAH S MEMBERSHIP ADVISOR Ot 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 07/07/2017 SONYA HILAH S MEMBERSHIP ADVISOR Ot 250.00 DIAB OLU WO COMPL, TYPE II OR UNSPEC TY 07/07/2017 TONJA HASSANAH S MEMBERSHIP ADVISOR Ot 305.1 TOBACCO USE DISORDER 07/07/2017 TONJA HASSANAH S MEMBERSHIP ADVISOR Ot 401.9 HYPERTENSION NOS 07/07/2017 SONYA HILAH S MEMBERSHIP ADVISOR Ot 414.00 CORON ATHEROSCLER NOS TYPE VESSEL, NATIV 07/07/2017 KAYCEE HASSAN S MEMBERSHIP ADVISOR Ot 496 CHR AIRWAY OBSTRUCT NEC 07/07/2017 SONYA HILAH S MEMBERSHIP ADVISOR Ot 793.11 SOLITARY PULMONARY NODULE 07/07/2017 KAYCEE HASSAN S MEMBERSHIP ADVISOR Ot V45.81 AORTOCORONARY BYPASS 07/07/2017 TONJA HASSANAH S MEMBERSHIP ADVISOR Ot V58.67 LONG-TERM (CURRENT) USE OF INSULIN 07/07/2017 TONJA HASSANAH S MEMBERSHIP ADVISOR Ot V58.69 OTH MED,LT,CURRENT USE 07/07/2017 KAYCEE HASSAN S MEMBERSHIP ADVISOR Ot 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 07/07/2017 TONJA HASSANAH S MEMBERSHIP ADVISOR Ot 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 07/07/2017 TONJA HASSANAH S MEMBERSHIP ADVISOR Ot 250.00 DIAB OLU WO COMPL, TYPE II OR UNSPEC TY 07/07/2017 TONJA HASSANAH S MEMBERSHIP ADVISOR Ot 305.1 TOBACCO USE DISORDER 07/07/2017 SONYA HILAH S MEMBERSHIP ADVISOR Ot 401.9 HYPERTENSION NOS 07/07/2017 HASSAN, HILAH S MEMBERSHIP ADVISOR Ot 414.00 CORON ATHEROSCLER NOS TYPE VESSEL, NATIV 07/07/2017 TONJA HASSANAH S MEMBERSHIP ADVISOR Ot 496 CHR AIRWAY OBSTRUCT NEC 07/07/2017 SONYA HILAH S MEMBERSHIP ADVISOR Ot 793.11 SOLITARY PULMONARY NODULE 07/07/2017 TONJA HASSANAH S MEMBERSHIP ADVISOR Ot V45.81 AORTOCORONARY BYPASS 07/07/2017 SONYA HILAH S MEMBERSHIP ADVISOR Ot V58.67 LONG-TERM (CURRENT) USE OF INSULIN 07/07/2017 KAYCEE HASSAN Ot V58.69 OTH MED,LT,CURRENT USE 07/07/2017 KAYCEE HASSAN MEMBERSHIP ADVISOR Ot V58.81 FIT/ADJ VASCULAR CATHETER 07/07/2017 KAYCEE HASSAN MEMBERSHIP ADVISOR Ot 141.9 MALIG HILARIO TONGUE NOS 07/07/2017 KAYCEE HASSAN MEMBERSHIP ADVISOR Ot 793.11 SOLITARY PULMONARY NODULE 07/07/2017 Ot 786.6 CHEST SWELLING/MASS/LUMP 07/07/2017 Ot V72.63 PRE- PROCEDURAL LABORATORY EXAMINATION 07/07/2017 Ot V72.81 EXAM-PRE- OPERATIVE CARDIOVASCULAR 07/07/2017 Ot V72.83 EXAM PRE- OPERATIVE NEC 07/07/2017 DARIAN JESSICA MD Ot 162.9 MAL HILARIO BRONCH/LUNG NOS 07/07/2017 DARIAN JESSICA MD Ot 414.01 CORONARY ATHEROSCLEROSIS OF [place] CORON 07/07/2017 DARIAN JESSICA MD Ot 782.3 EDEMA 07/07/2017 SALOME STEVE Ot 793.11 SOLITARY PULMONARY NODULE 07/07/2017 CLAUDIA CUTLER, KYLIE Dawson Ot 250.00 DIAB OLU WO COMPL, TYPE II OR UNSPEC TY 07/07/2017 CLAUDIA CUTLER, KYLIE Dawson Ot 401.9 HYPERTENSION NOS 07/07/2017 CLAUDIA CUTLER, KYLIE Dawson Ot 414.00 CORON ATHEROSCLER NOS TYPE VESSEL, NATIV 07/07/2017 CLAUDIA CUTLER, KYLIE Dawson Ot 428.0 CONGESTIVE HEART FAILURE NOS 07/07/2017 KYLIE TAYLOR MD Ot V58.67 LONG-TERM (CURRENT) USE OF INSULIN 07/07/2017 KAYCEE HASSANP Ot 162.9 MAL HILARIO BRONCH/LUNG NOS 07/07/2017 KAYECE HASSANP Ot C34.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 07/07/2017 KAYCEE HASSAN Ot 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 OF SUPRAGLOTTIS 07/07/2017 KAYCEE HASSAN Ot Z12.31 ENCNTR SCREEN MAMMOGRAM FOR MALIGNANT NE 07/07/2017 KAYCEE HASSANP Ot 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 OF SUPRAGLOTTIS 07/07/2017 LILLY LEE DO Ot Z01.818 ENCOUNTER FOR OTHER PREPROCEDURAL EXAMIN 07/07/2017 SALOME STEVE Ot 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 OF SUPRAGLOTTIS 07/07/2017 LILIAN TREJO DO Ot 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 OF SUPRAGLOTTIS 07/07/2017 LILIAN TREJO DO Ot C34.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 NEOPLASM OF UPPER LOBE, LEFT B 07/07/2017 LILIAN TREJO DO Ot 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 OF SUPRAGLOTTIS 07/07/2017 LILIAN TREJO DO Ot C34.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 NEOPLASM OF UPPER LOBE, LEFT B 07/07/2017 KAYCEE HASSAN MEMBERSHIP ADVISOR Ot 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 OF SUPRAGLOTTIS 07/07/2017 KAYCEE HASSANP Ot C34.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 NEOPLASM OF UPPER LOBE, LEFT B 07/07/2017 KAYCEE HASSANP Ot M25.552 PAIN IN LEFT HIP 07/07/2017 ADELE CUTLER, ANAIS Nicholas Ot 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 OF SUPRAGLOTTIS 07/07/2017 ANAIS ANGULO MD Ot Z09 ENCNTR FOR F/U EXAM AFT TRTMT FOR COND O 07/07/2017 ANAIS ANGULO MD Ot Z96.89 PRESENCE OF OTHER SPECIFIED FUNCTIONAL I 07/07/2017 SERGEI CUTLER, STEF Arriola Ot 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 OF SUPRAGLOTTIS 07/07/2017 ROBERTO CLANCY MEMBERSHIP ADVISOR Ot Z12.31 ENCNTR SCREEN MAMMOGRAM FOR MALIGNANT NE 07/07/2017 KAYCEE HASSAN MEMBERSHIP ADVISOR Ot 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 OF SUPRAGLOTTIS 07/07/2017 KAYCEE HASSAN MEMBERSHIP ADVISOR Ot C34.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 NEOPLASM OF UPPER LOBE, LEFT B 07/07/2017 KAYCEE HASSAN MEMBERSHIP ADVISOR Ot 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 OF SUPRAGLOTTIS 07/07/2017 KAYCEE HASSAN MEMBERSHIP ADVISOR Ot C34.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 NEOPLASM OF UPPER LOBE, LEFT B 07/07/2017 SALOME STEVE Ot 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 OF SUPRAGLOTTIS 07/07/2017 SALOME STEVE Ot C34.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 NEOPLASM OF UPPER LOBE, LEFT B 07/07/2017 SALOME STEVE Ot E11.43 TYPE 2 DIABETES W DIABETIC AUTONOMIC (PO 07/07/2017 SALOME STEVE N Ot E78.5 HYPERLIPIDEMIA, UNSPECIFIED 07/07/2017 SALOME STEVE N Ot E83.42 HYPOMAGNESEMIA 07/07/2017 SALOME STEVE N Ot F17.210 NICOTINE DEPENDENCE, CIGARETTES, UNCOMPL 07/07/2017 SALOME STEVE N Ot I10 ESSENTIAL (PRIMARY) HYPERTENSION 07/07/2017 SALOME STEVE N Ot I25.10 ATHSCL HEART DISEASE OF [place] CORONARY 07/07/2017 SALOME STEVE N Ot J43.9 EMPHYSEMA, UNSPECIFIED 07/07/2017 SALOME STEVE N Ot Z79.899 OTHER ALF (CURRENT) DRUG THERAPY 07/07/2017 SALOME STEVE N Ot Z92.21 PERSONAL HISTORY OF ANTINEOPLASTIC CHEMO 07/07/2017 SALOME STEVE N Ot Z92.3 PERSONAL HISTORY OF IRRADIATION 07/08/2017 SALOME STEVE N Ot 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 OF SUPRAGLOTTIS 07/08/2017 SALOME STEVE N Ot C34.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 NEOPLASM OF UPPER LOBE, LEFT B 07/08/2017 SALOME STEVE N Ot E11.43 TYPE 2 DIABETES W DIABETIC AUTONOMIC (PO 07/08/2017 SALOME STEVE N Ot E78.5 HYPERLIPIDEMIA, UNSPECIFIED 07/08/2017 SALOME STEVE N Ot E83.42 HYPOMAGNESEMIA 07/08/2017 SALOME STEVE N Ot F17.210 NICOTINE DEPENDENCE, CIGARETTES, UNCOMPL 07/08/2017 SALOME STEVE N Ot I10 ESSENTIAL (PRIMARY) HYPERTENSION 07/08/2017 SALOME STEVE N Ot I25.10 ATHSCL HEART DISEASE OF [place] CORONARY 07/08/2017 SALOME STEVE N Ot J43.9 EMPHYSEMA, UNSPECIFIED 07/08/2017 SALOME STEVE N Ot Z79.899 OTHER ALF (CURRENT) DRUG THERAPY 07/08/2017 SALOME STEVE N Ot Z92.21 PERSONAL HISTORY OF ANTINEOPLASTIC CHEMO 07/08/2017 POWER SALOME N Ot Z92.3 PERSONAL HISTORY OF IRRADIATION Procedures There is no data. Results Test Result Range Complete blood count (CBC) with automated white blood cell (WBC) differential - 03/15/16 15:58 Blood leukocytes automated count (number/volume) 14.1 10*3/uL 4.3-11.0 Blood erythrocytes automated count (number/volume) 4.76 10*6/uL 4.35-5.85 Venous blood hemoglobin measurement (mass/volume) 13.2 g/dL 11.5-16.0 Blood hematocrit (volume fraction) 40 % 35-52 Automated erythrocyte mean corpuscular volume 85 [foz_us] 80-99 Automated erythrocyte mean corpuscular hemoglobin (mass per erythrocyte) 28 pg 25-34 Automated erythrocyte mean corpuscular hemoglobin concentration measurement ( mass/volume) 33 g/dL 32-36 Automated erythrocyte distribution width ratio 15.5 % 10.0-14.5 Automated blood platelet count (count/volume) 194 10*3/uL 130-400 Automated blood platelet mean volume measurement 10.3 [foz_us] 7.4-10.4 Automated blood neutrophils/100 leukocytes 82 % 42-75 Automated blood lymphocytes/100 leukocytes 10 % 12-44 Blood monocytes/100 leukocytes 7 % 0-12 Automated blood eosinophils/100 leukocytes 1 % 0-10 Automated blood basophils/100 leukocytes 0 % 0-10 Blood neutrophils automated count (number/volume) 11.6 10*3 1.8-7.8 Blood lymphocytes automated count (number/volume) 1.4 10*3 1.0-4.0 Blood monocytes automated count (number/volume) 1.0 10*3 0.0-1.0 Automated eosinophil count 0.1 10*3/uL 0.0-0.3 Automated blood basophil count (count/volume) 0.0 10*3/uL 0.0-0.1 Comprehensive metabolic panel - 03/15/16 15:58 Serum or plasma sodium measurement (moles/volume) 139 mmol/L 135-145 Serum or plasma potassium measurement (moles/volume) 4.2 mmol/L 3.6-5.0 Serum or plasma chloride measurement (moles/volume) 105 mmol/L 98-107 Carbon dioxide 24 mmol/L 21-32 Serum or plasma anion gap determination (moles/volume) 10 mmol/L 5-14 Serum or plasma urea nitrogen measurement (mass/volume) 16 mg/dL 7-18 Serum or plasma creatinine measurement (mass/volume) 1.13 mg/dL 0.60-1.30 Serum or plasma urea nitrogen/creatinine mass ratio 14 NRG Serum or plasma creatinine measurement with calculation of estimated glomerular filtration rate 50 NRG Serum or plasma glucose measurement (mass/volume) 296 mg/dL 70-105 Serum or plasma calcium measurement (mass/volume) 9.9 mg/dL 8.5-10.1 Serum or plasma total bilirubin measurement (mass/volume) 0.4 mg/dL 0.1-1.0 Serum or plasma alkaline phosphatase measurement (enzymatic activity/volume) 61 U/L 40-136 Serum or plasma aspartate aminotransferase measurement (enzymatic activity/ volume) 53 U/L 5-34 Serum or plasma alanine aminotransferase measurement (enzymatic activity/volume ) 59 U/L 0-55 Serum or plasma protein measurement (mass/volume) 7.1 g/dL 6.4-8.2 Serum or plasma albumin measurement (mass/volume) 4.4 g/dL 3.2-4.5 Lipase - 03/15/16 15:58 Lipase 570 U/L 8-78 Blood manual differential performed detection - 03/15/16 15:58 Blood monocytes/100 leukocytes 6 % NRG Manual blood segmented neutrophils/100 leukocytes 83 % NRG Manual blood lymphocytes/100 leukocytes 10 % NRG Manual eosinophils/100 leukocytes in nose 1 % NRG Blood erythrocyte morphology finding identification NORMAL NRG Complete urinalysis with reflex to culture - 03/15/16 16:15 Urine color determination YELLOW NRG Urine clarity determination CLEAR NRG Urine pH measurement by test strip 7 5-9 Specific gravity of urine by test strip 1.005 1.016- 1.022 Urine protein assay by test strip, semi-quantitative NEGATIVE NEGATIVE Urine glucose detection by automated test strip 3+ NEGATIVE Erythrocytes detection in urine sediment by light microscopy NEGATIVE NEGATIVE Urine ketones detection by automated test strip NEGATIVE NEGATIVE Urine nitrite detection by test strip NEGATIVE NEGATIVE Urine total bilirubin detection by test strip NEGATIVE NEGATIVE Urine urobilinogen measurement by automated test strip (mass/volume) NORMAL NORMAL Urine leukocyte esterase detection by dipstick NEGATIVE NEGATIVE Automated urine sediment erythrocyte count by microscopy (number/high power field) NONE NRG Automated urine sediment leukocyte count by microscopy (number/high power field ) NONE NRG Bacteria detection in urine sediment by light microscopy NEGATIVE NRG Squamous epithelial cells detection in urine sediment by light microscopy RARE NRG Crystals detection in urine sediment by light microscopy NONE NRG Casts detection in urine sediment by light microscopy NONE NRG Mucus detection in urine sediment by light microscopy NEGATIVE NRG Complete urinalysis with reflex to culture NO NRG Capillary blood glucose measurement by glucometer (mass/volume) - 07/04/16 10: 38 Capillary blood glucose measurement by glucometer (mass/volume) 202 mg/dL 70-110 Encounters ACCT No. Visit Date/Time Discharge Status Pt. Type Provider Facility Loc./Unit Complaint [id number] 07/07/2017 12:47:00 07/07/2017 23:59:59 CLS Outpatient SALOME STEVE Miguel A [facility] ONC [id number] 05/21/2017 14:13:00 07/02/2017 00:01:00 DIS Outpatient PIOTR STEVEBRANDO Grady [facility] ONC [id number] 06/12/2017 13:16:00 06/12/2017 23:59:59 CLS Outpatient ROBERTO CLANCY MEMBERSHIP ADVISOR [facility] RAD Z12.31 SCREENING BREAST EXAMINATION [id number] 06/06/2017 10:19:00 06/06/2017 23:59:59 CLS Outpatient MADLROBERTO MEMBERSHIP ADVISOR [facility] RAD PAIN OF UPPER ABD [id number] 04/03/2017 09:42:00 04/03/2017 23:59:59 CLS Outpatient KAYCEE HASSAN MEMBERSHIP ADVISOR [facility] RAD CANCER OF LUNG C34.12 [id number] 03/26/2017 13:00:00 03/26/2017 23:59:59 CLS Preadmit KAVON WESTON [facility] CARD CAD I25.10 [id number] 02/20/2017 13:18:00 03/15/2017 00:01:00 DIS Outpatient POWER, PIOTRBRANDO Grady [facility] ONC [id number] 09/26/2016 10:56:00 11/03/2016 00:01:00 DIS Outpatient POWERSALOME PHILLIPS [facility] ONC [id number] 09/17/2016 10:36:00 09/17/2016 23:59:59 CLS Outpatient KAYCEE HASSAN MEMBERSHIP ADVISOR [facility] RAD CANCER OF LUNG [id number] 07/04/2016 10:21:00 07/04/2016 14:05:00 DIS Outpatient LILLY LEE DO [facility] SDC CYST ON CHEST WALL [id number] 07/03/2016 05:36:00 07/03/2016 09:24:00 DIS Outpatient LILLY LEE DO [facility] PREOP CYST ON CHEST WALL [id number] 06/25/2016 10:48:00 07/01/2016 00:01:00 DIS Outpatient SALOME STEVE [facility] ONC [id number] 05/28/2016 13:08:00 05/28/2016 23:59:59 CLS Outpatient ROBERTO CLANCYP [facility] RAD SCREENING BREAST CA [id number] 05/16/2016 11:35:00 05/16/2016 23:59:59 CLS Outpatient STEF MAI MD [facility] RAD T4 SQUAM CELL CA OF EP [id number] 04/05/2016 12:21:00 04/05/2016 23:59:59 CLS Outpatient KAYCEE HASSAN MEMBERSHIP ADVISOR [facility] CARD PAIN IN LT HIP, CANCER LUNG [id number] 04/05/2016 12:21:00 04/05/2016 23:59:59 CLS Outpatient ADELE CUTLER, ANAIS Nicholas [facility] RAD Z96.1 [id number] 02/14/2016 12:57:00 03/22/2016 16:05:00 DIS Outpatient SALOME STEVE [facility] ONC [id number] 03/15/2016 13:57:00 03/15/2016 20:00:00 DIS Emergency ETHAN RODRIGES APRN [facility] ER ACROSS ABD PAIN [id number] 03/11/2016 15:00:00 03/11/2016 23:59:59 CLS Preadmit LILIAN TREJO DO [facility] PULM LUNG CANCER,CANCER EPIGLOTTIS [id number] 12/21/2015 09:00:00 03/10/2016 00:01:00 DIS Outpatient LILIAN TREJO DO [facility] PULM LUNG CANCER,CANCER EPIGLOTTIS [id number] 01/03/2016 10:57:00 01/07/2016 00:01:00 DIS Outpatient POWER SALOME Grady [facility] ONC [id number] 01/01/2016 10:26:00 01/01/2016 23:59:59 CLS Outpatient ASLOME STEVE Miguel A [facility] RAD SQUAMOUS CELL CANCER OF EPIGLOTTIS [id number] 11/22/2015 11:47:00 11/22/2015 23:59:59 CLS Outpatient NEIL BIRDLILIAN Narciso [facility] RT CANCER OF LUNG,CANCER EPIGLOTTIS [id number] 11/09/2015 06:09:00 11/09/2015 11:45:00 [facility] [id number] 11/02/2015 14:09:00 11/02/2015 14:45:00 DIS Outpatient LILLY LEE DO [facility] PREOP SKIN LESIONS [id number] 10/09/2015 12:33:00 10/09/2015 23:59:59 CLS Preadmit KAYCEE HASSANP [facility] ONC [id number] 08/31/2015 15:11:00 08/31/2015 23:59:59 CLS Outpatient POWERSALOME Miguel A [facility] ONC [id number] 07/11/2015 07:41:00 07/11/2015 12:15:00 DIS Outpatient LILLY LEE DO [facility] SDC SCREENING [id number] 07/06/2015 05:42:00 07/06/2015 23:59:59 CLS Outpatient LILLY LEE DO [facility] PREOP SCREENING [id number] 06/05/2015 12:42:00 06/18/2015 00:01:00 DIS Outpatient POWER SALOME Grady [facility] ONC [id number] 06/05/2015 13:22:00 06/05/2015 23:59:59 CLS Outpatient KAYCEE HASSAN [employer]SH[employer] ADVISOR [facility] RAD SQUAMOUS CELL CA OF EPIGLOTTIS [id number] 03/23/2015 09:01:00 03/23/2015 23:59:59 CLS Outpatient KAYCEE HASSAN [employer]BERSH[employer] ADVISOR [facility] RAD RUQ PAIN,SCREENING [id number] 03/20/2015 12:59:00 03/20/2015 23:59:59 CLS Outpatient KAYCEE HASSAN [employer]BERSH[employer] ADVISOR [facility] ONC [id number] 03/03/2015 14:01:00 03/15/2015 00:01:00 DIS Outpatient SALOME STEVE [facility] ONC [id number] 03/06/2015 13:38:00 03/06/2015 23:59:59 CLS Outpatient KAYCEE HASSAN [employer]BERSH[employer] ADVISOR [facility] RAD LUNG CA [id number] 11/22/2014 11:10:00 12/14/2014 00:01:00 DIS Outpatient SALOME STEVE [facility] ONC [id number] 12/12/2014 08:26:00 12/12/2014 23:59:59 CLS Outpatient CLAUDIA CUTLER, KYLIE Dawson [facility] LAB CAD,CHF,HTN,IDDM [id number] 12/12/2014 08:17:00 12/12/2014 23:59:59 CLS Outpatient SALOME STEVE [facility] RAD LUNG NODULE [id number] 10/06/2014 11:15:00 10/06/2014 23:59:59 CLS Outpatient DARIAN JESSICA MD [facility] HH EDEMA LEGS/FEET,CAD,L THORACOTOMY,LUNG CA [id number] 07/19/2014 08:58:00 07/19/2014 23:59:59 CLS Outpatient KAYCEE HASSAN [employer] ADVISOR [facility] RAD CA OF TONGUE, LUNG NODULE [id number] 07/11/2014 13:49:00 07/11/2014 23:59:59 CLS Outpatient KAYCEE HASSAN [employer]BERSH[employer] ADVISOR [facility] ONC [id number] 07/11/2014 13:29:00 07/11/2014 23:59:59 CLS Outpatient SALOME STEVE [facility] ONC [id number] 05/04/2014 13:30:00 05/04/2014 23:59:59 CLS Outpatient KAYCEE HASSAN [employer]BERSH[employer] ADVISOR [facility] ONC [id number] 05/04/2014 10:12:00 05/04/2014 23:59:59 CLS Outpatient CLAUDIA CUTLER, KYLIE Dawson [facility] CARD CAD,HTN,HLP, [id number] 04/29/2014 07:59:00 04/29/2014 12:25:00 DIS Outpatient STEF MAI MD [facility] SDC ABNORMAL MASS [id number] 04/14/2014 10:52:00 04/14/2014 23:59:59 CLS Outpatient STEF MAI MD [facility] PREOP ABNORMAL MASS [id number] 04/08/2014 10:46:00 04/13/2014 00:01:00 DIS Outpatient SALOME STEVE [facility] ONC [id number] 04/05/2014 08:12:00 04/05/2014 23:59:59 CLS Outpatient KAYCEE HASSAN [employer]SH[employer] ADVISOR [facility] RAD SQUAMOUS CELL [id number] 03/28/2014 09:23:00 03/28/2014 23:59:59 CLS Outpatient KAYCEE HASSAN [employer]SH[employer] ADVISOR [facility] ONC [id number] 03/24/2014 10:46:00 03/24/2014 23:59:59 CLS Outpatient SALOME STEVE [facility] RAD CA OF EPIGLOTTIS [id number] 02/28/2014 10:10:00 02/28/2014 23:59:59 CLS Outpatient KAYCEE HASSAN [employer]SH[employer] ADVISOR [facility] ONC [id number] 02/16/2014 10:47:00 02/16/2014 23:59:59 CLS Outpatient ZAK BUCIO [employer] [facility] LAB [id number] 02/16/2014 10:05:00 02/16/2014 23:59:59 CLS Outpatient KAYCEE HASSAN S [employer] [facility] ONC [id number] 01/06/2014 09:32:00 01/06/2014 23:59:59 CLS Outpatient SALOME STEVE [facility] RAD SQUAMOU CELL [id number] 12/16/2013 09:47:00 01/02/2014 00:01:00 DIS Outpatient SALOME STEVE [facility] ONC [id number] 11/26/2013 09:23:00 11/26/2013 23:59:59 CLS Outpatient HASSANKAYCEE S [employer] [facility] ONC [id number] 11/19/2013 09:47:00 11/19/2013 23:59:59 CLS Outpatient HASSAN, HILAH S [employer] [facility] ONC [id number] 11/11/2013 10:04:00 11/11/2013 23:59:59 CLS Outpatient HASSAN HILAH S [employer] [facility] ONC [id number] 11/02/2013 09:36:00 11/02/2013 23:59:59 CLS Outpatient HASSAN HILAH S [employer] [facility] ONC [id number] 10/12/2013 09:17:00 10/12/2013 23:59:59 CLS Outpatient HASSAN HILAH S [employer] [facility] ONC [id number] 10/11/2013 10:19:00 10/11/2013 16:30:00 DIS Outpatient LILLY LEE DO [facility] SDC SQUAMOUS CELL CARCINOMA EPIGLOTTIS [id number] 10/07/2013 07:25:00 10/07/2013 23:59:59 CLS Outpatient LILLY LEE DO [facility] PREOP SQUAMOUS CELL CARCINOMA EPIGLOTTIS [id number] 10/05/2013 10:27:00 10/05/2013 23:59:59 CLS Outpatient MAGAN SU MD [facility] RAD SQUAMOUS CELL CA [id number] 09/13/2013 13:40:00 09/13/2013 23:59:59 CLS Outpatient ALBA RAMIREZ MD [facility] CARD CAD,HTN [id number] 09/01/2013 08:02:00 09/01/2013 23:59:59 CLS Outpatient STEF MAI MD [facility] RAD DSYPHAGIA,MASS [id number] 08/30/2013 12:07:00 08/30/2013 23:59:59 CLS Outpatient STEF MAI MD [facility] LAB HOARSENESS,FATIGUE, THRYOID ENLARMENT [id number] 08/25/2013 10:07:00 08/25/2013 23:59:59 CLS Outpatient NALINI JOHNS DO [facility] RAD DYSPHAGIA [id number] 02/04/2013 13:01:00 02/04/2013 16:20:00 DIS Emergency [id number] 09/18/2017 11:45:00 PEN Preadmit SALOME STEVE [facility] RAD CA OF LUNG C34.12 [id number] 09/09/2014 12:51:00 Document Registration
[2017-07-14] MEDS ORDERED: LOVA20TA2 PO (13:52)
[2017-07-14] MEDS ORDERED: LOSA50TA36 PO (13:52)
[2017-07-14] MEDS ORDERED: METF1000 PO (13:52)
[2017-07-14] MEDS ORDERED: METO-351 PO (13:52)
[2017-07-14] MEDS ORDERED: OMEP20CA12 PO (13:52)
[2017-07-14 14:04] LABS: BASOPHILS % (AUTO) 0 % (0-10); EOSINOPHILS % (AUTO) 0 % (0-10); HEMATOCRIT 38 % (35-52); HEMOGLOBIN 12.8 G/DL (11.5-16.0); LYMPHOCYTES # (AUTO) 0.6 X 10^3 (1.0-4.0); LYMPHOCYTES % (AUTO) 5 % (12-44); MEAN CORPUSCULAR HEMOGLOBIN 30 PG (25-34); MEAN CORPUSCULAR HGB CONC 34 G/DL (32-36); MEAN CORPUSCULAR VOLUME 88 FL (80-99); MEAN PLATELET VOLUME 10.6 FL (7.4-10.4); MONOCYTES # (AUTO) 0.9 X 10^3 (0.0-1.0); MONOCYTES % (AUTO) 9 % (0-12); NEUTROPHILS # (AUTO) 9.4 X 10^3 (1.8-7.8); NEUTROPHILS % (AUTO) 86 % (42-75); PLATELET COUNT 119 10^3/uL (130-400); RED BLOOD COUNT 4.24 10^6/uL (4.35-5.85); RED CELL DISTRIBUTION WIDTH 14.9 % (10.0-14.5)
--- NOTE | 2017-07-14 14:05 | History & Physicial (CHS) ---
HPI History of Present Illness: 57 yo female presented to Walk-in clinic at [facility] today due to shortness of breath and pain between shoulder blades and anterior chest with deep breath. She has been coughing as well and vomited 3 x this morning. She thought she might have the flu, but her influenza test was negative in clinic. She has felt feverish at home, but has not had a measured fever. She does have exposure to influenza from a grandchild and she was sick about 10 days ago with cough but not this severe, got a little better and then was much worse this morning. She does have a history of lung cancer with CRISTINA resection 2 years ago as well as throat cancer 3 years ago. She does endorse a diagnosis of COPD but does not use inhalers at home or require supplemental oxygen at baseline. In clinic she was found to be saturating 84% on room air and had a chest x-ray with LLB infiltrate concerning for pneumonia or recurrent tumor. Source: patient Date seen by provider: Jul 14, 2017 Time Seen by Provider: 13:45 Attending Physician Hunter Vasquez MD PCP Debra Bernal DO Consult Date of Admission Jul 14, 2017 at 12:45 pm Home Medications Home Medications Reviewed patient Home Medication Reconciliation Form Allergies Coded Allergies: enalaprilat (Verified Allergy, Severe, anaphylactic, 06/26/07) codeine (Unverified Allergy, Unknown, 01/13/07) haloperidol (Unverified Allergy, Unknown, NAUSEA, 10/07/13) YFM-Uydain-Blwtik Hx Patient Social History Smoking Status: Current Everyday Smoker Type Used: Cigarettes Recent Foreign Travel: No Contact w/other who traveled: No Recent Hopitalizations: Yes (APR 2016-9DAYS PANCREATITIS) Immunizations Up To Date Tetanus Booster (TDap): Unknown Date of Pneumonia Vaccine: Mar 16, 2015 Date of Influenza Vaccine: May 20, 2016 Past Medical History PMHx: DMII COPD Pancreatitis with stenting x 3 Coronary artery disease s/p quadruple bypass Lung cancer Epiglottic cancer PSurgHx: Cholecystectomy Tonsillectomy CRISTINA lung resection Review of Systems ([facility]) Constitutional: fever, malaise EENTM: No nose congestion, No throat pain Respiratory: cough, short of breath Cardiovascular: chest pain Gastrointestinal: No abdominal pain, No diarrhea, vomiting Genitourinary: no symptoms reported Musculoskeletal: joint pain (generalized) Skin: No rash Psychiatric/Neurological: No Symptoms Reported Physical Exam-([facility]) Physical Exam Vital Signs VS - Last 72 Hours, by Label 07/14/17 07/14/17 07/14/17 13:00 16:00 16:14 Temp 99.4 99.4 Pulse 103 104 103 Resp 20 18 B/P (MAP) 112/61 (78) 154/80 (104) Pulse Ox 94 97 97 O2 Delivery Room Air Nasal Cannula O2 Flow Rate 2.00 FiO2 28 Capillary Refill : General Appearance: WD/WN, no apparent distress Respiratory: No respiratory distress, rhonchi Cardiovascular: regular rate, rhythm, no edema, no murmur Gastrointestinal: normal bowel sounds, non tender, soft Extremities: no pedal edema Neurologic/Psychiatric: alert, normal mood/affect Skin: normal color Assessment/Plan Assessment/Plan Admission Dx Pneumonia COPD exacerbation Influenza like illness Chest pain DMII CAD Plan Pneumonia- suspect possible pneumonia based on symptoms and CXR reported from clinic, will check blood cultures, sputum culture, CBC and lactic acid as well as CT chest to rule out PE or recurrent lung mass with history of lung cancer and new onset hypoxia -Azithromycin and ceftriaxone for CAP COPD exacerbation- consider COPD exacerbation versus pneumonia as noted above, RT protocol, supplemental oxygen as needed, solumedrol Influenza like illness- has had negative rapid testing x 2 in clinic, but given her underlying comorbidities and know exposure, concern persists for influenza, will treat empirically as she is hypoxic and requiring hospital admission Chest pain- on breathing, suspect related to her coughing, however, with significant heart history will check EKG and troponin DMII- diabetic diet, resume home insulin- will start levemir at half dose as she was not taking consistently CAD- resume home meds, EKG, troponin as noted above HTN- hold home antihypertensives with borderline low BP DVT ppx- SCDs, enoxaparin HUNTER VASQUEZ MD Jul 14, 2017 2:05 pm
[2017-07-14 14:19] LABS: BAND NEUTROPHILS 30 %; NEUTROPHILS % (MANUAL) 58 %
[2017-07-14 14:20] LABS: ANISOCYTOSIS SLIGHT; BASOPHILS % (MANUAL) 0 %; EOSINOPHILS % (MANUAL) 1 %; LYMPHOCYTES % (MANUAL) 5 %; MONOCYTES % (MANUAL) 6 %
[2017-07-14] MEDS ORDERED: FISH1CAP15 PO (14:25)
[2017-07-14] MEDS ORDERED: POTA10TA6 PO (14:25)
[2017-07-14] MEDS ORDERED: INSU100I23 SQ (14:25)
[2017-07-14] MEDS ORDERED: INSU100V5 SQ (14:25)
[2017-07-14 14:33] LABS: ALANINE AMINOTRANSFERASE 142 U/L (0-55); ALBUMIN 3.7 GM/DL (3.2-4.5); ALKALINE PHOSPHATASE 49 U/L (40-136); BILIRUBIN,TOTAL 0.9 MG/DL (0.1-1.0); BUN/CREATININE RATIO 12; CALCIUM 8.8 MG/DL (8.5-10.1); CARBON DIOXIDE 19 MMOL/L (21-32); CHLORIDE 102 MMOL/L (98-107); GFR ESTIMATED 33; GLUCOSE 296 MG/DL (70-105); LIPASE 13 U/L (8-78); POTASSIUM 4.3 MMOL/L (3.6-5.0); SODIUM 136 MMOL/L (135-145); TOTAL PROTEIN 6.3 GM/DL (6.4-8.2)
[2017-07-14] MEDS: cefTRIAXone INJECTION 1,000 MG in NS (IVPB) 50 ML IV SCH (14:33)
[2017-07-14] MEDS ORDERED: NS IV PRN (14:45)
[2017-07-14] MEDS: AZITHROMYCIN INJECTION 500 MG in NS (IVPB) 250 ML IV SCH ×2 (14:53→15:03)
[2017-07-14] MEDS: ENOXAPARIN 40 MG/0.4 ML (LOVENOX) SYR SC SCH (14:54)
--- NOTE | 2017-07-14 15:29 | Diagnostic Imaging Report ---
PROCEDURE: CT angiography of the chest with contrast. TECHNIQUE: Multiple contiguous axial images were obtained through the chest after uneventful bolus administration of intravenous contrast. Reconstructed CTA MIP acquisitions were also performed. INDICATION: History of lung cancer. Cough. Hypoxia. Congestion. COMPARISON: 04/03/2017. FINDINGS: There is no CT evidence of acute pulmonary embolus to the first subsegmental division of the pulmonary arteries. Heart size is within normal limits. There is no large pericardial effusion. Prominent right hilar lymph node measures 1.2 cm in shortest axis dimension. This does appear to be increased in size compared to 0.8 cm on exam dated 04/03/2017 (image 63, series 4 compared to image 24, series 3). Right infrahilar lymph node is also prominent measuring 1.1 cm in diameter (image 80, series 4). Precarinal lymph node measures 1.5 cm in shortest axis dimension. This is in comparison to 1.4 cm previously. Evaluation of the lung wing demonstrates postsurgical changes of previous left lobectomy. Since exam dated 03/24/2017, there has been interval development of scattered patchy and confluent alveolar densities within the left lung, greatest within the mid and lower regions. Right lung is relatively clear. There is background of mild emphysematous disease. There is no effusion or pneumothorax on either side. Bony structures show no acute abnormalities. Included portions of the upper abdomen are unremarkable. IMPRESSION: 1. No evidence of acute pulmonary embolus. 2. Interval development of moderate scattered patchy and confluent alveolar infiltrates in the left lung. The appearance is suggestive of acute pneumonia. Followup after appropriate course of antibiotic therapy is recommended. 3. Mildly prominent right hilar lymph nodes; possibly reactive. However, metastatic process cannot be excluded given the patient's history of lung cancer. 4. Background of mild emphysematous disease. Dictated by: Dictated on workstation # [id number]
[2017-07-14 16:00] VITALS: BP 154/80
[2017-07-14 16:14] VITALS: BP 112/61
[2017-07-14] MEDS ORDERED: NON-FORMULARY MEDICATION 1 EA EA (Insulin Lispro (Humalog Kwikpen) 8 UNIT) SQ PRN (16:15)
[2017-07-14] MEDS ORDERED: inSUlin DETERMIR 1000 UNITS/10 ML VIAL (LEVEMIR) SQ PRN (16:15)
[2017-07-14] MEDS ORDERED: RT-ALBUTEROL/IPRATROPIUM 3 ML (DUONEB) VIAL INH PRN (16:30)
[2017-07-14] MEDS: methylPREDNISolone 125 MG (Solu-MEDROL) VIAL IV SCH ×2 (16:44→23:02)
[2017-07-14] MEDS: ALPRAZolam 0.25 MG (XANAX) TAB PO PRN (16:44)
[2017-07-14] MEDS ORDERED: NON-FORMULARY MEDICATION 1 EA EA (Insulin Lispro (Humalog Kwikpen) 8 UNIT) SQ SCH (16:45)
[2017-07-14] MEDS ORDERED: inSUlin DETERMIR 1000 UNITS/10 ML VIAL (LEVEMIR) SQ SCH (16:45)
[2017-07-14] MEDS: NS IV 1000 ML 1,000 ML IV SCH ×2 (16:45→20:52)
[2017-07-14] MEDS: inSUlin ASPART (NovoLOG) 1 UNIT/0.01 ML (CHARGE PER UNIT) SC SCH (16:58)
[2017-07-14] MEDS ORDERED: methylPREDNISolone 40 MG/ML (Solu-MEDROL) VIAL IV SCH (18:00)
[2017-07-14 19:55] VITALS: BP 174/98
[2017-07-14] MEDS: RT-ALBUTEROL/IPRATROPIUM 3 ML (DUONEB) VIAL INH SCH ×2 (19:56→22:47)
[2017-07-14] MEDS ORDERED: [UNRECOGNIZED DRUG - OTHER] PO SCH (21:00)
[2017-07-14] MEDS ORDERED: EPA PO SCH (21:00)
[2017-07-14] MEDS ORDERED: FISH OIL PO SCH (21:00)
[2017-07-14] MEDS ORDERED: OSELTAMIVIR 75 MG (TAMIFLU) BOX OF 10 PO SCH (21:00)
[2017-07-14] MEDS ORDERED: DHA PO SCH (21:00)
[2017-07-14] MEDS ORDERED: inSUlin DETERMIR 1 UNIT/0.01 ML (LEVEMIR) CHARGE PER UNIT SQ SCH (21:00)
[2017-07-14] MEDS ORDERED: NON-FORMULARY MEDICATION 1 EA EA (Lovastatin 20 MG) PO SCH (21:00)
[2017-07-14] MEDS: amLODIPine 5 MG (NORVASC) TAB PO SCH (21:33)
[2017-07-14] MEDS: OMEGA 3 (FISH OIL) 1000 MG CAP PO SCH (21:33)
[2017-07-14] MEDS: ASPIRIN 325 MG (5 GR) TABLET PO SCH (21:34)
[2017-07-14] MEDS: SIMvastatin 10 MG (ZOCOR) TAB PO SCH (21:34)
[2017-07-14] MEDS: OSELTAMIVIR 30 MG (TAMIFLU) BOX OF 10 PO SCH (21:34)
[2017-07-14] MEDS ORDERED: NICOTINE 21 MG (NICODERM) PATCH TD ONE (22:00)
[2017-07-15 00:30] VITALS: BP 144/82
[2017-07-15] MEDS: RT-ALBUTEROL/IPRATROPIUM 3 ML (DUONEB) VIAL INH SCH ×6 (02:49→22:58)
[2017-07-15] MEDS: NS IV 1000 ML 1,000 ML IV SCH ×3 (04:00→18:18)
[2017-07-15 04:18] VITALS: BP 141/76
[2017-07-15 06:18] LABS: BASOPHILS % (AUTO) 0 % (0-10); EOSINOPHILS % (AUTO) 0 % (0-10); HEMATOCRIT 35 % (35-52); HEMOGLOBIN 11.8 G/DL (11.5-16.0); LYMPHOCYTES # (AUTO) 0.7 X 10^3 (1.0-4.0); LYMPHOCYTES % (AUTO) 4 % (12-44); MEAN CORPUSCULAR HEMOGLOBIN 30 PG (25-34); MEAN CORPUSCULAR HGB CONC 34 G/DL (32-36); MEAN CORPUSCULAR VOLUME 89 FL (80-99); MEAN PLATELET VOLUME 10.5 FL (7.4-10.4); MONOCYTES # (AUTO) 0.7 X 10^3 (0.0-1.0); MONOCYTES % (AUTO) 4 % (0-12); NEUTROPHILS # (AUTO) 15.4 X 10^3 (1.8-7.8); NEUTROPHILS % (AUTO) 92 % (42-75); PLATELET COUNT 125 10^3/uL (130-400); RED BLOOD COUNT 3.93 10^6/uL (4.35-5.85); RED CELL DISTRIBUTION WIDTH 14.9 % (10.0-14.5); WHITE BLOOD COUNT 16.8 10^3/uL (4.3-11.0)
[2017-07-15] MEDS: inSUlin ASPART (NovoLOG) 1 UNIT/0.01 ML (CHARGE PER UNIT) SC SCH ×4 (06:20→16:20)
[2017-07-15] MEDS: PANTOPRAZOLE 20 MG TABLET (PROTONIX) PO SCH (06:20)
[2017-07-15] MEDS: LEVOTHYROXINE 50 MCG (LEVOTHROID) TAB PO SCH (06:20)
[2017-07-15] MEDS: methylPREDNISolone 125 MG (Solu-MEDROL) VIAL IV SCH ×2 (06:21→12:06)
[2017-07-15 06:33] LABS: ALBUMIN 3.8 GM/DL (3.2-4.5); BILIRUBIN,TOTAL 0.4 MG/DL (0.1-1.0); CALCIUM 8.7 MG/DL (8.5-10.1); CREATININE SERUM 1.35 MG/DL (0.60-1.30); POTASSIUM 4.2 MMOL/L (3.6-5.0); TOTAL PROTEIN 6.5 GM/DL (6.4-8.2)
[2017-07-15 08:00] VITALS: BP 151/83
[2017-07-15] MEDS ORDERED: OMEPRAZOLE 20 MG (PriLOSEC) CAP NON-FORMULARY PO SCH (09:00)
[2017-07-15] MEDS ORDERED: MONTELUKAST 10 MG (SINGULAIR) TAB PO SCH (09:00)
[2017-07-15] MEDS ORDERED: NON-FORMULARY MEDICATION 1 EA EA (Omega-3 Fatty Acids/Fish Oil (Fish Oil 1,200 mg Softgel) PO SCH (09:00)
[2017-07-15] MEDS: OSELTAMIVIR 30 MG (TAMIFLU) BOX OF 10 PO SCH ×2 (10:37→20:54)
[2017-07-15] MEDS: OMEGA 3 (FISH OIL) 1000 MG CAP PO SCH ×2 (10:37→20:53)
[2017-07-15] MEDS: AZITHROMYCIN 250 MG TAB (ZITHROMAX) PO SCH (10:38)
[2017-07-15] MEDS: inSUlin DETERMIR 1 UNIT/0.01 ML (LEVEMIR) CHARGE PER UNIT SQ SCH ×2 (10:39→20:52)
[2017-07-15] MEDS: NICOTINE 21 MG (NICODERM) PATCH TD SCH (10:39)
[2017-07-15] MEDS: NICOTINE PATCH REMOVAL TP SCH (10:42)
[2017-07-15 12:00] VITALS: BP 163/70
--- NOTE | 2017-07-15 12:28 | Progress Note (SOAP) ---
Subjective Subjective/Events-last exam Afebrile, no acute events. Still on supplemental oxygen, feeling a little better today. Review of Systems Date Seen by Provider: Jul 15, 2017 Time Seen by Provider: 10:55 Objective Exam Last Set of Vital Signs Vital Signs Date Time Temp Pulse Resp B/P (MAP) Pulse Ox O2 Delivery O2 Flow Rate FiO2 07/15/17 11:03 94 Nasal Cannula 1.00 07/15/17 08:00 97.9 94 20 151/83 (105) 07/14/17 16:14 28 Capillary Refill : I&O Intake and Output 07/14/17 23:59 Intake Total 5923.24 ml Output Total 2100 ml Balance 3823.24 ml Intake Oral 1860 ml IV Total 4063.24 ml Output Urine Total 2100 ml Daily Weight Change No General: Alert, No Acute Distress Lungs: Clear to Auscultation, Normal Air Movement Heart: Regular Rate, No Murmurs Neuro: Normal Speech Psych/Mental Status: Mental Status NL Results/Procedures Lab Laboratory Tests 07/14/17 13:57: White Blood Count 11.0, Red Blood Count 4.24L, Hemoglobin 12.8, Hematocrit 38, Mean Corpuscular Volume 88, Mean Corpuscular Hemoglobin 30, Mean Corpuscular Hemoglobin Concent 34, Red Cell Distribution Width 14.9H, Platelet Count 119L, Mean Platelet Volume 10.6H, Neutrophils (%) (Auto) 86H, Lymphocytes (%) (Auto) 5L, Monocytes (%) (Auto) 9, Eosinophils (%) (Auto) 0, Basophils (%) (Auto) 0, Neutrophils # (Auto) 9.4H, Lymphocytes # (Auto) 0.6L, Monocytes # (Auto) 0.9, Eosinophils # (Auto) 0.0, Basophils # (Auto) 0.0, Neutrophils % (Manual) 58, Lymphocytes % (Manual) 5, Monocytes % (Manual) 6, Eosinophils % (Manual) 1, Basophils % (Manual) 0, Band Neutrophils 30, Anisocytosis SLIGHT, Sodium Level 136, Potassium Level 4.3, Chloride Level 102, Carbon Dioxide Level 19L, Anion Gap 15H, Blood Urea Nitrogen 19H, Creatinine 1.60H, Estimat Glomerular Filtration Rate 33, BUN/Creatinine Ratio 12, Glucose Level 296H, Lactic Acid Level 2.77*H, Calcium Level 8.8, Total Bilirubin 0.9, Aspartate Amino Transf ( AST/SGOT) 132H, Alanine Aminotransferase (ALT/SGPT) 142H, Alkaline Phosphatase 49, Troponin I < 0.30, Total Protein 6.3L, Albumin 3.7, Lipase 13 07/14/17 16:15: Lactic Acid Level 2.83*H 07/14/17 16:55: Glucometer 423*H 07/14/17 18:16: Glucometer 379H 07/14/17 20:10: Lactic Acid Level 3.77*H 07/14/17 20:48: Glucometer 389H 07/15/17 00:50: Lactic Acid Level 2.89*H 07/15/17 05:56: Glucometer 410*H 07/15/17 06:10: White Blood Count 16.8H, Red Blood Count 3.93L, Hemoglobin 11.8, Hematocrit 35, Mean Corpuscular Volume 89, Mean Corpuscular Hemoglobin 30, Mean Corpuscular Hemoglobin Concent 34, Red Cell Distribution Width 14.9H, Platelet Count 125L, Mean Platelet Volume 10.5H, Neutrophils (%) (Auto) 92H, Lymphocytes (%) (Auto) 4L, Monocytes (%) (Auto) 4, Eosinophils (%) (Auto) 0, Basophils (%) (Auto) 0, Neutrophils # (Auto) 15.4H, Lymphocytes # (Auto) 0.7L, Monocytes # (Auto) 0.7, Eosinophils # (Auto) 0.0, Basophils # (Auto) 0.0, Sodium Level 139, Potassium Level 4.2, Chloride Level 108H, Carbon Dioxide Level 20L, Anion Gap 11, Blood Urea Nitrogen 19H, Creatinine 1.35H, Estimat Glomerular Filtration Rate 40, BUN/ Creatinine Ratio 14, Glucose Level 447*H, Lactic Acid Level 3.27*H, Calcium Level 8.7, Total Bilirubin 0.4, Aspartate Amino Transf (AST/SGOT) 67H, Alanine Aminotransferase (ALT/SGPT) 114H, Alkaline Phosphatase 45, Total Protein 6.5, Albumin 3.8 07/15/17 11:21: Glucometer 399H Microbiology 07/14/17 Gram Stain - Final, Resulted 07/14/17 Sputum Culture - Preliminary, Resulted Probable Strep Pneumoniae Radiology CTA Chest 07/14: IMPRESSION: 1. No evidence of acute pulmonary embolus. 2. Interval development of moderate scattered patchy and confluent alveolar infiltrates in the left lung. The appearance is suggestive of acute pneumonia. Followup after appropriate course of antibiotic therapy is recommended. 3. Mildly prominent right hilar lymph nodes; possibly reactive. However, metastatic process cannot be excluded given the patient's history of lung cancer. 4. Background of mild emphysematous disease. Assessment/Plan Assessment/Plan Plan Pneumonia- suspect possible pneumonia based on symptoms and CXR reported from clinic, will check blood cultures, sputum culture, CBC and lactic acid as well as CT chest to rule out PE or recurrent lung mass with history of lung cancer and new onset hypoxia -Azithromycin and ceftriaxone for CAP 07/15- CTA with no PE, findings consistent with pneumonia, continue azithromycin and ceftriaxone. Vitals and labs without evidence of sepsis on admission, but did have elevated lactic acid which is persistent Elevated lactic acid- does not meet other criteria for sepsis and lactic acid is stable between 2 and 4 without improvement after 30 ml/kg bolus, possibly due to PAYAM with metformin use at home, will monitor PAYAM- suspect due to hypovolemia, improved this am after fluids COPD exacerbation- consider COPD exacerbation versus pneumonia as noted above, RT protocol, supplemental oxygen as needed, solumedrol 07/15- change to prednisone taper, wean supplemental oxygen as tolerated Influenza like illness- has had negative rapid testing x 2 in clinic, but given her underlying comorbidities and know exposure, concern persists for influenza, will treat empirically as she is hypoxic and requiring hospital admission Chest pain- on breathing, suspect related to her coughing, however, with significant heart history will check EKG and troponin, improving, EKG and troponin unremarkable DMII- diabetic diet, resume home insulin- will start levemir at half dose as she was not taking consistently, holding metformin due to contrast and PAYAM 07/15- blood sugar high, increase to full home doses and monitor closely CAD- resume home meds, EKG, troponin as noted above HTN- hold home antihypertensives with borderline low BP 07/15 BP increasing, resumed home metoprolol and amlodipine, holding losartan with PAYAM Elevated LFTs- trending down today, suspect related to underlying infection, patient also notes being told by GI she has fatty liver DVT ppx- SCDs, enoxaparin Clinical Quality Measures DVT/VTE Risk/Contraindication: Risk Factor Score Per Nursin RFS Level Per Nursing on Admit: 3=High ALFREDO,HUNTER N MD Jul 15, 2017 12:28 pm
[2017-07-15] MEDS: predniSONE 10 MG TAB PO SCH (14:03)
[2017-07-15] MEDS: cefTRIAXone INJECTION 1,000 MG in NS (IVPB) 50 ML IV SCH (14:03)
[2017-07-15] MEDS: ENOXAPARIN 40 MG/0.4 ML (LOVENOX) SYR SC SCH (14:51)
[2017-07-15] MEDS: ALPRAZolam 0.25 MG (XANAX) TAB PO PRN (14:51)
[2017-07-15 15:46] VITALS: BP 163/74
[2017-07-15] MEDS ORDERED: inSUlin ASPART (NovoLOG) 1 UNIT/0.01 ML (CHARGE PER UNIT) SC ONE (16:30)
[2017-07-15] MEDS ORDERED: ACETAMINOPHEN 500 MG TAB (TYLENOL) PO NR (16:45)
[2017-07-15 19:41] VITALS: BP 176/81
[2017-07-15] MEDS: ASPIRIN 325 MG (5 GR) TABLET PO SCH (20:53)
[2017-07-15] MEDS: DOCUSATE SODIUM 100 MG (COLACE) CAP PO PRN (20:53)
[2017-07-15] MEDS: MONTELUKAST 10 MG (SINGULAIR) TAB PO SCH (20:53)
[2017-07-15] MEDS: amLODIPine 5 MG (NORVASC) TAB PO SCH (20:53)
[2017-07-15] MEDS: SIMvastatin 10 MG (ZOCOR) TAB PO SCH (21:04)
[2017-07-15] MEDS ORDERED: ALPRAZolam 0.25 MG (XANAX) TAB PO ONE (22:45)
[2017-07-16] VITALS (29 sets, daily range): BP systolic 91–199; BP diastolic 62–123
[2017-07-16] MEDS: NS IV 1000 ML 1,000 ML IV SCH ×2 (01:26→09:19)
[2017-07-16] MEDS: RT-ALBUTEROL/IPRATROPIUM 3 ML (DUONEB) VIAL INH SCH ×6 (02:06→20:57)
[2017-07-16] MEDS ORDERED: hydrALAZINE (APRESOLINE) 25 MG TAB PO ONE (04:00)
[2017-07-16] MEDS ORDERED: hydrALAZINE (APESOLINE) 20 MG/ML VIAL ONE (04:00)
[2017-07-16] MEDS ORDERED: FUROSEMIDE 40 MG/4 ML INJ (LASIX) IVP ONE (04:15)
[2017-07-16 04:22] LABS: ABG BASE EXCESS -4.9 MMOL/L (-2.5-2.5); ABG OXYGEN SATURATION 86 % (94-100); ABG PCO2 42 MMHG (35-45); ABG PH 7.31 (7.37-7.43); ABG PO2 53 MMHG (79-93); ABG TCO2 21.9 MMOL/L (21.0-31.0)
[2017-07-16 04:23] LABS: ALLENS TEST YES-POS; INSPIRED O2 100%; PATIENT TEMP 96.9; VENTILATOR NO
[2017-07-16 04:38] LABS: BASOPHILS % (AUTO) 0 % (0-10); EOSINOPHILS % (AUTO) 0 % (0-10); HEMATOCRIT 41 % (35-52); HEMOGLOBIN 14.1 G/DL (11.5-16.0); LYMPHOCYTES # (AUTO) 1.1 X 10^3 (1.0-4.0); LYMPHOCYTES % (AUTO) 5 % (12-44); MEAN CORPUSCULAR HEMOGLOBIN 30 PG (25-34); MEAN CORPUSCULAR HGB CONC 35 G/DL (32-36); MEAN CORPUSCULAR VOLUME 87 FL (80-99); MEAN PLATELET VOLUME 10.9 FL (7.4-10.4); MONOCYTES # (AUTO) 0.9 X 10^3 (0.0-1.0); MONOCYTES % (AUTO) 4 % (0-12); NEUTROPHILS # (AUTO) 20.7 X 10^3 (1.8-7.8); NEUTROPHILS % (AUTO) 91 % (42-75); PLATELET COUNT 150 10^3/uL (130-400); RED BLOOD COUNT 4.65 10^6/uL (4.35-5.85); RED CELL DISTRIBUTION WIDTH 15.2 % (10.0-14.5); WHITE BLOOD COUNT 22.8 10^3/uL (4.3-11.0)
[2017-07-16] MEDS ORDERED: morphine INJ 4 MG/ML 1 ML (VIAL/SYRINGE) ONE (05:07)
[2017-07-16] MEDS ORDERED: LORazepam INJ 2 MG/ML (ATIVAN) VIAL IV ONE (05:15)
[2017-07-16] MEDS ORDERED: LORazepam INJ 2 MG/ML (ATIVAN) VIAL IVP ONE (05:15)
[2017-07-16 05:19] LABS: ALBUMIN 4.1 GM/DL (3.2-4.5); BILIRUBIN,TOTAL 0.9 MG/DL (0.1-1.0); CALCIUM 9.1 MG/DL (8.5-10.1); CREATININE SERUM 1.2 MG/DL (0.60-1.30); POTASSIUM 4.3 MMOL/L (3.6-5.0)
[2017-07-16] MEDS ORDERED: ONDANSETRON 4 MG/2 ML (SDV) Z0FRAN ONE (05:28)
[2017-07-16] MEDS ORDERED: ONDANSETRON 4 MG/2 ML (SDV) Z0FRAN IVP PRN (05:30)
[2017-07-16] MEDS ORDERED: morphine INJ 4 MG/ML 1 ML (VIAL/SYRINGE) IV ONE (05:30)
[2017-07-16] MEDS: inSUlin (REGULAR) HUMAN 1 UNIT/0.01 ML (CHARGE PER UNIT) SC SCH ×6 (05:38→23:38)
[2017-07-16] MEDS: inSUlin ASPART (NovoLOG) 1 UNIT/0.01 ML (CHARGE PER UNIT) SC SCH ×2 (06:00→11:03)
[2017-07-16] MEDS: KCL 20 MEQ TAB (K-DUR) PO SCH (06:12)
[2017-07-16] MEDS: POTASSIUM CL 10MEQ/50ML IVPB 50 ML IV SCH (06:12)
--- NOTE | 2017-07-16 06:31 | Diagnostic Imaging Report ---
INDICATION: Shortness of breath. COMPARISON: 06/25/2016. FINDINGS: Median sternotomy changes are present. Heart size has increased since previous exam. There is a dense consolidated infiltrate in the right upper lobe. Moderate alveolar infiltrate noted in the lower lobes bilaterally. Left upper lobe is relatively well-preserved. Small basilar pleural effusion on the left. IMPRESSION: 1. Development of cardiomegaly with dense consolidated pneumonias bilaterally. Probable underlying pulmonary edema as well. Dictated by: Dictated on workstation # [id number]
[2017-07-16 06:36] LABS: MAGNESIUM 1.6 MG/DL (1.8-2.4); PHOSPHORUS 2.6 MG/DL (2.3-4.7)
[2017-07-16] MEDS: MAGNESIUM 1 GM/100 ML IVPB 100 ML IV SCH ×3 (07:35→09:00)
[2017-07-16] MEDS: NICOTINE 21 MG (NICODERM) PATCH TD SCH (07:46)
[2017-07-16] MEDS: inSUlin DETERMIR 1 UNIT/0.01 ML (LEVEMIR) CHARGE PER UNIT SQ SCH ×2 (07:47→20:04)
[2017-07-16] MEDS: NICOTINE PATCH REMOVAL TP SCH (07:47)
[2017-07-16] MEDS: PANTOPRAZOLE 20 MG TABLET (PROTONIX) PO SCH (07:57)
[2017-07-16] MEDS: LEVOTHYROXINE 50 MCG (LEVOTHROID) TAB PO SCH (07:58)
[2017-07-16] MEDS ORDERED: DILTIAZEM 25 MG/5 ML INJ (CARDIZEM) VIAL IVP ONE (08:45)
[2017-07-16] MEDS ORDERED: DILTIAZEM IV FOR DRIP 125 MG in D5W 100 ML IVPB 100 ML IV SCH (08:45)
--- NOTE | 2017-07-16 08:54 | Consultation-Cardiology ---
HPI-Cardiology Cardiology Consultation Date of Consultation 07/16/17 Date of Admission Time Seen by Provider: 08:48 Indication: afib with RVR HPI Patient is a 57 y/o female with history of CAD with CABG, CHF, HTN, DM, history of Lung CA. Presented to [facility] walk in clinic with complaints of flu-like illness x 1 week with complaints of increased SOB and cough. Patient was admitted to the hospital, currently being treated for pneumonia with AE COPD. Has new onset AFib with RVR. Currently, patient is lethargic, but able to answer questions. Denies any CP at this time. Complaining of ongoing dyspnea. Denies any CP prior to admission. This is a 57 years old lady with history of coronary artery disease, congestive heart failure. History of lung cancer, presented to [facility] clinic complaining of generalized fatigue and flulike illness. Having worsening shortness of breath. She was admitted to the hospital in acute respiratory failure, upper my evaluation she was on BiPAP machine, unable to provide full answer but responded by yes and no, denied any chest pain, has been having dyspnea. No fever or chills. No palpitation, this morning she converted to atrial fibrillation with rapid ventricular response. Start on Cardizem drip and I was called on consultation, evaluate in the morning and I returned in the afternoon and appeared that she converted back to sinus rhythm. Home Medications & Allergies Allergies: Coded Allergies: enalaprilat (Verified Allergy, Severe, anaphylactic, 06/26/07) codeine (Unverified Allergy, Unknown, 01/13/07) haloperidol (Unverified Allergy, Unknown, NAUSEA, 10/07/13) Home Medication List Reviewed: Yes WVO-Brbemj-Brvjnn Hx Patient Social History Marital Status: Alcohol Use: Denies Use Recreational Drug Use: Yes (PAST HISTORY) Smoking Status: Current Everyday Smoker Type Used: Cigarettes Recent Foreign Travel: No Recent Hopitalizations: Yes (APR 2016-9DAYS PANCREATITIS) Physical Abuse Screen: No Sexual Abuse: No Immunizations Up To Date Tetanus Booster (TDap): Unknown Date of Pneumonia Vaccine: Mar 16, 2015 Date of Influenza Vaccine: Mar 16, 2017 Past Medical History CAD, CHF, DM, Lung CA, Epiglottis CA, CHF, Tobaccoism Family Medical History Significant Family History: No Pertinent Family Hx Family History: CHF 19 MOTHER Cardiovascular disease 19 FATHER 19 MOTHER FH: lung cancer 19 FATHER UTERINE CANCER 19 MOTHER Constitutional: malaise, weakness EENTM: No blurred vision, No double vision, No vision loss, No throat pain, No throat swelling Respiratory: cough, dyspnea on exertion, orthopnea, short of breath Cardiovascular: No chest pain, No edema, No palpitations, No syncope, vascular heart diseas Gastrointestinal: No abdominal pain, No constipation Genitourinary: No dysuria, No frequency Musculoskeletal: No back pain, No joint pain Skin: No lesions, No rash Reviewed Test Results Reviewed Test Results Radiology CTA Chest 07/14: IMPRESSION: 1. No evidence of acute pulmonary embolus. 2. Interval development of moderate scattered patchy and confluent alveolar infiltrates in the left lung. The appearance is suggestive of acute pneumonia. Followup after appropriate course of antibiotic therapy is recommended. 3. Mildly prominent right hilar lymph nodes; possibly reactive. However, metastatic process cannot be excluded given the patient's history of lung cancer. 4. Background of mild emphysematous disease. ECG Impression ECG Initial ECG Rhythm: A Fib/Flutter Initial ECG Impression: Atrial Fibrillation w/RVR Physical Exam Vital Signs Vital Sign - Last 12Hours 07/14/17 07/14/17 07/14/17 13:00 16:00 16:14 Temp 99.4 Pulse 103 Resp 20 B/P (MAP) 112/61 (78) Pulse Ox 94 O2 Delivery Room Air O2 Flow Rate 2.00 FiO2 28 Capillary Refill : General Appearance: WD/WN, Mild Distress HEENT: PERRL/EOMI, Pharynx Normal Neck: Non Tender, Supple Respiratory: Chest Non Tender, No Accessory Muscle Use, No Respiratory Distress , Wheezing Cardiovascular: No JVD, No Murmur, Irregularly Irregular, Tachycardia, Other ( trace edema BLE) Gastrointestinal: No Pulsatile Mass, Non Tender, Soft Rectal: Deferred Back: No CVA Tenderness Extremity: Non Tender, No Calf Tenderness Neurologic/Psychiatric: Alert, Oriented x3 A/P-Cardiology Admission Diagnosis Afib with RVR Pneumonia CAD CHF Assessment/Plan Afib with RVR- Telemetry revealed Afib with RVR with HR in the 130-140's. Will start on Cardizem gtt, Lovenox, obtain 2D Echo, EKG. Continue on telemetry and continue to monitor. Pneumonia- Chest xray and CT chest reveal left sided pneumonia. Continue antibiotics and continue to monitor. Influenza like illness- currently afebrile. Continue supportive care. Coronary artery disease, history of CABG 4 done in 2011 using HADLEY to LAD, vein graft to OM1, OM 2, PDA. Had an abnormal stress test in 2013 involving the septum. Had been asymptomatic and was scheduled for stress test, however, has not had testing done yet. Planning for stress test once more clinically stable. Congestive heart failure, acute on chronic left ventricular systolic dysfunction , ejection fraction 45 -50 percent, last echocardiogram was done in April 2014. Evaluate 2-D echocardiogram today. Continue to diurese. Hypertension, controlled. Continue to monitor blood pressure/heart rate. Hyperlipidemia, monitored as outpatient. Diabetes mellitus. Managed and followed by primary care physician. 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 Mark[address] Followed by Dr. Casillas. Continue to monitor. Currently in remission History of pancreatitis. History of cholecystectomy, tonsillectomy, laparoscopic oophorectomy, stenting of the common bile duct. Nonobstructive carotid artery stenosis-history of radiation to the neck, increased risk of carotid injury, continue to monitor. Thank you for allowing us to participate in the management of Ms. Guillaume. This is Augustina Medina PA-C, acting as a scribe for Dr. Gonzalez. This is Dr. Gonzalez, I have seen and evaluated the patient with Augustina, interviewed the patient and perform physical examination, I agree with the current scribed note, patient is on BiPAP machine, unable to provide full history but responding by yes and no. She denied any chest pain, went to atrial fibrillation with rapid ventricular response earlier this morning, started on Cardizem drip, on examination lungs has bilateral rhonchi, heart is regular rate and rhythm in the afternoon, she returned to sinus rhythm, I will stop the Cardizem drip and start her on Lopressor IV. Meanwhile continue to monitor heart rate and blood pressure, continue with supportive care, she was diagnosed with pneumonia and started with antibiotic and has been managed by primary care physician. She has extensive history as described above. I made few modification to the note and used Italic Font Clinical Quality Measures DVT/VTE Risk/Contraindication: Risk Factor Score Per Nursin RFS Level Per Nursing on Admit: 3=High AUGUSTINA CROUCH Jul 16, 2017 8:54 am KYLIE GONZALEZ MD Jul 16, 2017 3:23 pm
[2017-07-16] MEDS: AZITHROMYCIN 250 MG TAB (ZITHROMAX) PO SCH (09:05)
[2017-07-16] MEDS: OMEGA 3 (FISH OIL) 1000 MG CAP PO SCH ×2 (09:05→20:03)
[2017-07-16] MEDS: predniSONE 10 MG TAB PO SCH (09:06)
[2017-07-16] MEDS: OSELTAMIVIR 30 MG (TAMIFLU) BOX OF 10 PO SCH ×2 (09:44→20:05)
[2017-07-16] MEDS: ENOXAPARIN 100 MG/1 ML (LOVENOX) SYR SC SCH ×2 (10:04→20:04)
[2017-07-16 10:07] LABS: ABG BASE EXCESS -1.4 MMOL/L (-2.5-2.5); ABG OXYGEN SATURATION 93 % (94-100); ABG PCO2 50 MMHG (35-45); ABG PO2 66 MMHG (79-93); ABG TCO2 25.8 MMOL/L (21.0-31.0)
[2017-07-16 10:08] LABS: ALLENS TEST POSITIVE; INSPIRED O2 40L VAPOTHERM 100%; PATIENT TEMP 97.3; VENTILATOR NO
[2017-07-16] MEDS ORDERED: FUROSEMIDE 40 MG/4 ML INJ (LASIX) IVP NR (11:00)
--- NOTE | 2017-07-16 11:59 | Progress Note (SOAP) ---
Subjective Subjective/Events-last exam Patient had acute worsening respiratory status along with hypertension and tachycardia overnight, necessitating move to ICU. She preferred to not use bipap and was placed on vapotherm at 100% FiO2. Initial EKG overnight showed sinus tachycardia and troponin negative, BNP was elevated and CXR showed diffuse infiltrate/edema. This morning, repeat EKG showed atrial fibrillation which is new for her. Review of Systems Date Seen by Provider: Jul 16, 2017 Time Seen by Provider: 08:35 Objective Exam Last Set of Vital Signs Vital Signs Date Time Temp Pulse Resp B/P (MAP) Pulse Ox O2 Delivery O2 Flow Rate FiO2 07/16/17 11:02 88 22 97 100.00 07/16/17 10:55 NIV Bilevel 07/16/17 10:40 100 07/16/17 07:53 97.8 07/16/17 07:00 118/84 (95) Capillary Refill : I&O Intake and Output 07/16/17 00:00 Intake Total 3750 ml Output Total 3700 ml Balance 50 ml Intake Oral 1750 ml IV Total 2000 ml Output Urine Total 3700 ml General: Moderate Distress Lungs: Other (ronchi bilaterally) Abdomen: Normal Bowel Sounds, Soft, No Tenderness Neuro: Other (somnolent, but awakens to voice and answers questions when prompted) Results/Procedures Lab Laboratory Tests 07/15/17 13:40: Lactic Acid Level 3.05*H 07/15/17 16:08: Glucometer 476*H 07/15/17 20:18: Glucometer 448*H 07/15/17 22:36: Glucometer 449*H 07/16/17 04:08: Blood Gas Puncture Site LEFT RADIAL, Blood Gas Patient Temperature 96.9, Arterial Blood pH 7.31*L, Arterial Blood Partial Pressure CO2 42, Arterial Blood Partial Pressure O2 53L, Arterial Blood HCO3 21L, Arterial Blood Total CO2 21.9, Arterial Blood Oxygen Saturation 86L, Arterial Blood Base Excess -4.9L , Haider Test YES-POS, Blood Gas Ventilator Setting NO, Blood Gas Inspired Oxygen 100% 07/16/17 04:30: White Blood Count 22.8H, Red Blood Count 4.65, Hemoglobin 14.1, Hematocrit 41, Mean Corpuscular Volume 87, Mean Corpuscular Hemoglobin 30, Mean Corpuscular Hemoglobin Concent 35, Red Cell Distribution Width 15.2H, Platelet Count 150, Mean Platelet Volume 10.9H, Neutrophils (%) (Auto) 91H, Lymphocytes (%) (Auto) 5L, Monocytes (%) (Auto) 4, Eosinophils (%) (Auto) 0, Basophils (%) (Auto) 0, Neutrophils # (Auto) 20.7H, Lymphocytes # (Auto) 1.1, Monocytes # (Auto) 0.9, Eosinophils # (Auto) 0.0, Basophils # (Auto) 0.0, Sodium Level 142, Potassium Level 4.3, Chloride Level 108H, Carbon Dioxide Level 18L, Anion Gap 16H, Blood Urea Nitrogen 24H, Creatinine 1.20, Estimat Glomerular Filtration Rate 46, BUN/ Creatinine Ratio 20, Glucose Level 370H, Calcium Level 9.1, Phosphorus Level 2.6 , Magnesium Level 1.6L, Total Bilirubin 0.9, Aspartate Amino Transf (AST/SGOT) 188H, Alanine Aminotransferase (ALT/SGPT) 211H, Alkaline Phosphatase 77, Troponin I < 0.30, B-Type Natriuretic Peptide 674.5H, Total Protein 8.0, Albumin 4.1 07/16/17 05:00: Glucometer 335H 07/16/17 07:50: Glucometer 333H 07/16/17 10:00: Blood Gas Puncture Site RIGHT RADIAL, Blood Gas Patient Temperature 97.3, Arterial Blood pH 7.30*L, Arterial Blood Partial Pressure CO2 50H, Arterial Blood Partial Pressure O2 66L, Arterial Blood HCO3 24, Arterial Blood Total CO2 25.8, Arterial Blood Oxygen Saturation 93L, Arterial Blood Base Excess -1.4, Haider Test POSITIVE, Blood Gas Ventilator Setting NO, Blood Gas Inspired Oxygen 40L VAPOTHERM 100% Microbiology 07/14/17 Blood Culture - Preliminary, Resulted No growth 07/14/17 Gram Stain - Final, Resulted 07/14/17 Sputum Culture - Preliminary, Resulted Streptococcus Pneumoniae Presumptive Francie Albicans Radiology CTA Chest 07/14: IMPRESSION: 1. No evidence of acute pulmonary embolus. 2. Interval development of moderate scattered patchy and confluent alveolar infiltrates in the left lung. The appearance is suggestive of acute pneumonia. Followup after appropriate course of antibiotic therapy is recommended. 3. Mildly prominent right hilar lymph nodes; possibly reactive. However, metastatic process cannot be excluded given the patient's history of lung cancer. 4. Background of mild emphysematous disease. Assessment/Plan Assessment/Plan Plan Pneumonia- suspect possible pneumonia based on symptoms and CXR reported from clinic, will check blood cultures, sputum culture, CBC and lactic acid as well as CT chest to rule out PE or recurrent lung mass with history of lung cancer and new onset hypoxia -Azithromycin and ceftriaxone for CAP 07/15- CTA with no PE, findings consistent with pneumonia, continue azithromycin and ceftriaxone. Vitals and labs without evidence of sepsis on admission, but did have elevated lactic acid which is persistent 07/16- acute on chronic hypoxic hypercapneic respiratory failure, suspect combination of the pneumonia with now superimposed pulmonary edema, given 40 mg IV lasix overnight without much benefit, ABG this am with worsening acidosis and hypercapnea although slightly improved but still low oxygen on 100 FiO2, discussed with patient and she agreed to trial of bipap. She does not want to be seen by Dr. Ledezma, however, so we discussed that if she worsens and needs intubation, we may need to pursue transfer, and she would prefer [facility]. Elevated lactic acid- does not meet other criteria for sepsis and lactic acid is stable between 2 and 4 without improvement after 30 ml/kg bolus, possibly due to PAYAM with metformin use at home, will monitor PAYAM- suspect due to hypovolemia, improved this am after fluids 07/16 continues to improve COPD exacerbation- consider COPD exacerbation versus pneumonia as noted above, RT protocol, supplemental oxygen as needed, solumedrol 07/15- change to prednisone taper, wean supplemental oxygen as tolerated 07/16- continue prednisone taper- respiratory support as above Influenza like illness- has had negative rapid testing x 2 in clinic, but given her underlying comorbidities and know exposure, concern persists for influenza, will treat empirically as she is hypoxic and requiring hospital admission Chest pain- on breathing, suspect related to her coughing, however, with significant heart history will check EKG and troponin, improving, EKG and troponin unremarkable DMII- diabetic diet, resume home insulin- will start levemir at half dose as she was not taking consistently, holding metformin due to contrast and PAYAM 07/15- blood sugar high, increase to full home doses and monitor closely CAD- resume home meds, EKG, troponin as noted above HTN- hold home antihypertensives with borderline low BP 07/15 BP increasing, resumed home metoprolol and amlodipine, holding losartan with PAYAM 07/16- markedly elevated overnight requiring hydralazine and increased dose of metoprolol, started on cardizem drip this am per Cardiology due to A fib Elevated LFTs- trending down today, suspect related to underlying infection, patient also notes being told by GI she has fatty liver 07/16- increased slightly again, likely due to congestive hepatitis, monitor Atrial fibrillation- new onset 07/16 am, Cardiology consulted and started cardizem drip and enoxaparin, echocardiogram pending- per Cardiology she did have an EF of 45% about 3 years ago, troponin remains negative DVT ppx- SCDs, enoxaparin Clinical Quality Measures DVT/VTE Risk/Contraindication: Risk Factor Score Per Nursin RFS Level Per Nursing on Admit: 3=High HUNTER FUENTES MD Jul 16, 2017 11:59 am
[2017-07-16 12:30] LABS: ABG BASE EXCESS -0.5 MMOL/L (-2.5-2.5); ABG OXYGEN SATURATION 99 % (94-100); ABG PCO2 42 MMHG (35-45); ABG PH 7.37 (7.37-7.43); ABG PO2 101 MMHG (79-93); ABG TCO2 25.6 MMOL/L (21.0-31.0)
[2017-07-16 12:31] LABS: ALLENS TEST POSITIVE; INSPIRED O2 100% BIPAP; PATIENT TEMP 96.4; VENTILATOR NO
[2017-07-16] MEDS: cefTRIAXone INJECTION 1,000 MG in NS (IVPB) 50 ML IV SCH (14:58)
[2017-07-16 15:24] LABS: ABG BASE EXCESS 0.4 MMOL/L (-2.5-2.5); ABG OXYGEN SATURATION 95 % (94-100); ABG PCO2 46 MMHG (35-45); ABG PH 7.36 (7.37-7.43); ABG PO2 68 MMHG (79-93); ABG TCO2 26.8 MMOL/L (21.0-31.0); ALLENS TEST POSITIVE
[2017-07-16 15:25] LABS: INSPIRED O2 60% BIPAP; PATIENT TEMP 97.2; VENTILATOR NO
[2017-07-16] MEDS ORDERED: FUROSEMIDE 40 MG/4 ML INJ (LASIX) IV NR (16:15)
[2017-07-16] MEDS: meTOprolol 5 MG/5 ML (LOPRESSOR) VIAL IV SCH ×2 (17:58→23:38)
[2017-07-16] MEDS: amLODIPine 5 MG (NORVASC) TAB PO SCH (20:02)
[2017-07-16] MEDS: ASPIRIN 325 MG (5 GR) TABLET PO SCH (20:03)
[2017-07-16] MEDS: SIMvastatin 10 MG (ZOCOR) TAB PO SCH (20:03)
[2017-07-16] MEDS: MONTELUKAST 10 MG (SINGULAIR) TAB PO SCH (20:03)
[2017-07-16] MEDS ORDERED: ALPRAZolam 0.25 MG (XANAX) TAB PO ONE (21:00)
[2017-07-17] VITALS (26 sets, daily range): BP systolic 101–189; BP diastolic 59–101
[2017-07-17] MEDS: RT-ALBUTEROL/IPRATROPIUM 3 ML (DUONEB) VIAL INH SCH ×6 (01:59→21:39)
[2017-07-17 05:04] LABS: ABG BASE EXCESS 2.4 MMOL/L (-2.5-2.5); ABG OXYGEN SATURATION 100 % (94-100); ABG PCO2 39 MMHG (35-45); ABG PH 7.44 (7.37-7.43); ABG PO2 117 MMHG (79-93); ABG TCO2 27.8 MMOL/L (21.0-31.0)
[2017-07-17 05:05] LABS: ALLENS TEST YES-POS; INSPIRED O2 40% FIO2; PATIENT TEMP 96.4; VENTILATOR NO
[2017-07-17 05:50] LABS: BASOPHILS % (AUTO) 0 % (0-10); EOSINOPHILS % (AUTO) 0 % (0-10); HEMATOCRIT 35 % (35-52); HEMOGLOBIN 11.8 G/DL (11.5-16.0); LYMPHOCYTES # (AUTO) 1.4 X 10^3 (1.0-4.0); LYMPHOCYTES % (AUTO) 10 % (12-44); MEAN CORPUSCULAR HEMOGLOBIN 30 PG (25-34); MEAN CORPUSCULAR HGB CONC 34 G/DL (32-36); MEAN CORPUSCULAR VOLUME 89 FL (80-99); MONOCYTES # (AUTO) 0.6 X 10^3 (0.0-1.0); MONOCYTES % (AUTO) 4 % (0-12); NEUTROPHILS % (AUTO) 86 % (42-75); PLATELET COUNT 142 10^3/uL (130-400); RED BLOOD COUNT 3.95 10^6/uL (4.35-5.85)
[2017-07-17 06:25] LABS: ALBUMIN 3.4 GM/DL (3.2-4.5); BILIRUBIN,TOTAL 0.5 MG/DL (0.1-1.0); CALCIUM 8.5 MG/DL (8.5-10.1); CREATININE SERUM 1.07 MG/DL (0.60-1.30); MAGNESIUM 1.5 MG/DL (1.8-2.4); PHOSPHORUS 2.5 MG/DL (2.3-4.7); POTASSIUM 3.8 MMOL/L (3.6-5.0); TOTAL PROTEIN 6.2 GM/DL (6.4-8.2)
[2017-07-17] MEDS: POTASSIUM CL 10MEQ/50ML IVPB 50 ML IV SCH (06:35)
[2017-07-17] MEDS: KCL 20 MEQ TAB (K-DUR) PO SCH (06:36)
[2017-07-17] MEDS: meTOprolol 5 MG/5 ML (LOPRESSOR) VIAL IV SCH ×4 (06:36→20:36)
[2017-07-17] MEDS: MAGNESIUM 1 GM/100 ML IVPB 100 ML IV SCH ×3 (06:36→09:03)
--- NOTE | 2017-07-17 07:29 | Diagnostic Imaging Report ---
INDICATION: Respiratory distress. COMPARISON: 07/16/2017 FINDINGS: Single frontal radiographic view of the chest was obtained and demonstrates bilateral scattered patchy and confluent infiltrates, greatest within the right upper lobe. There may be some slight interval improved aeration of the right upper lobe. There is no large effusion or pneumothorax. Cardiac silhouette and pulmonary vasculature are stable. Sternotomy wires and left-sided Port-A-Cath are again noted. Bony structures show no acute abnormalities. IMPRESSION: 1. Persistent bilateral infiltrates as described above. Again, there may be some slight interval improved aeration of the right upper lobe. Continued followup is recommended. Dictated by: Dictated on workstation # [id number]
[2017-07-17] MEDS: inSUlin (REGULAR) HUMAN 1 UNIT/0.01 ML (CHARGE PER UNIT) SC SCH ×6 (07:35→23:12)
[2017-07-17] MEDS: PANTOPRAZOLE 20 MG TABLET (PROTONIX) PO SCH (07:49)
[2017-07-17] MEDS: LEVOTHYROXINE 50 MCG (LEVOTHROID) TAB PO SCH (07:49)
--- NOTE | 2017-07-17 08:13 | Cardiology Progress Note ---
Subjective Date Seen by Provider: Jul 17, 2017 Time Seen by Provider: 08:09 Subjective/Events-last exam Patient is in bed, more alert this morning. Denies any CP. Continues to have dyspnea, but overall reports improvement. Review of Systems General: No Night Sweats, No Fatigue, No Malaise HEENT: No Visual Changes, No Dysphasia, No Sore Throat Pulmonary: Dyspnea, Cough Cardiovascular: No: Chest Pain, Palpitations, Paroxysmal Noc. Dyspnea, Edema Gastrointestinal: No: Nausea, Vomiting, Abdominal Pain Genitourinary: No Dysuria, No Frequency Musculoskeletal: No: neck pain, back pain Neurological: No: Weakness, Numbness, Change in speech, Confusion Objective-Cardiology Exam Last Set of Vital Signs Vital Signs 07/17/17 07/17/17 07/17/17 07/17/17 00:00 06:00 06:40 07:09 Temp 97.7 Pulse 70 Resp 24 B/P (MAP) 123/73 (90) Pulse Ox 92 O2 Delivery Vapotherm O2 Flow Rate 20.00 FiO2 60 Capillary Refill : I&O Intake and Output 07/17/17 00:00 Intake Total 2980 ml Output Total 8050 ml Balance -5070 ml Intake Oral 780 ml IV Total 2200 ml Output Urine Total 8050 ml General: Alert, Oriented X3, Moderate Distress Lungs: Other (bilat rhonchi) Heart: Regular Rate, No Murmurs, Other (irregularly irregular) Abdomen: Normal Bowel Sounds, Soft, No Tenderness Extremities: No Edema Neuro: Normal Speech, Cranial Nerves 3-12 NL, Other (somnolent, but awakens to voice and answers questions when prompted) Psych/Mental Status: Mental Status NL, Mood NL Results Lab Laboratory Tests 07/17/17 05:35 A/P-Cardiology Admission Diagnosis Afib with RVR Pneumonia CAD CHF Assessment/Plan Afib with RVR- converted to SR on Cardizem. Currently receiving IV Lopressor. Tolerating PO well, will change to PO Toprol XL. Continue to monitor telemetry. Pneumonia- slowly improving. Continue antibiotics and continue to monitor. Influenza like illness- currently afebrile. Continue supportive care. Coronary artery disease, history of CABG 4 done in 2011 using HADLEY to LAD, vein graft to OM1, OM 2, PDA. Had an abnormal stress test in 2013 involving the septum. Had been asymptomatic and was scheduled for stress test, however, has not had testing done yet. Planning for stress test once more clinically stable. Congestive heart failure, acute on chronic left ventricular systolic dysfunction , ejection fraction 45 -50 percent, unchanged from previous 2D Echo. Maintained on beta alec. Will add low dose RACHEL-I. Hypertension, controlled. Continue to monitor blood pressure/heart rate. Hyperlipidemia, monitored as outpatient. Diabetes mellitus. Managed and followed by primary care physician. 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 Mark. Followed by Dr. Casillas. Continue to monitor. Currently in remission History of pancreatitis. History of cholecystectomy, tonsillectomy, laparoscopic oophorectomy, stenting of the common bile duct. Nonobstructive carotid artery stenosis-history of radiation to the neck, increased risk of carotid injury, continue to monitor. Clinical Quality Measures DVT/VTE Risk/Contraindication: Risk Factor Score Per Nursin RFS Level Per Nursing on Admit: 3=High KAVON CROUCH Jul 17, 2017 08:13
[2017-07-17] MEDS: predniSONE 10 MG TAB PO SCH (08:22)
[2017-07-17] MEDS: OMEGA 3 (FISH OIL) 1000 MG CAP PO SCH ×2 (08:22→20:36)
[2017-07-17] MEDS: inSUlin DETERMIR 1 UNIT/0.01 ML (LEVEMIR) CHARGE PER UNIT SQ SCH ×2 (08:22→20:36)
[2017-07-17] MEDS: ENOXAPARIN 100 MG/1 ML (LOVENOX) SYR SC SCH ×2 (08:22→20:35)
[2017-07-17] MEDS: NICOTINE 21 MG (NICODERM) PATCH TD SCH (08:23)
[2017-07-17] MEDS: AZITHROMYCIN 250 MG TAB (ZITHROMAX) PO SCH (08:23)
[2017-07-17] MEDS: ALPRAZolam 0.25 MG (XANAX) TAB PO PRN (08:23)
[2017-07-17] MEDS: DOCUSATE SODIUM 100 MG (COLACE) CAP PO PRN (08:23)
[2017-07-17] MEDS: OSELTAMIVIR 30 MG (TAMIFLU) BOX OF 10 PO SCH ×2 (08:34→20:37)
[2017-07-17] MEDS: NICOTINE PATCH REMOVAL TP SCH (08:34)
[2017-07-17] MEDS ORDERED: VERAPAMIL 10 MG/4 ML (CALAN) VIAL IV NR ×2 (10:46→13:30)
[2017-07-17] MEDS ORDERED: DIGOXIN 0.25 MG/ML (LANOXIN) 2 ML AMP IV NR (10:46)
[2017-07-17] MEDS: NS IV 1000 ML 1,000 ML IV SCH (11:16)
[2017-07-17] MEDS ORDERED: VERAPAMIL 10 MG/4 ML (CALAN) VIAL IV ONE (12:15)
--- NOTE | 2017-07-17 12:19 | Progress Note (SOAP) ---
Subjective Subjective/Events-last exam Afebrile, improving significantly with bipap and aggressive diuresis. Down to 40 % FiO2 on bipap this am and feeling much better. Had converted to sinus rhythm this am and cardizem drip stopped and toprol given, however, at time of my exam she had returned to a fib with RVR, Cardiology following. Review of Systems Date Seen by Provider: Jul 17, 2017 Time Seen by Provider: 09:51 Objective Exam Last Set of Vital Signs Vital Signs Date Time Temp Pulse Resp B/P (MAP) Pulse Ox O2 Delivery O2 Flow Rate FiO2 07/17/17 12:00 98.1 07/17/17 11:21 NIV Bilevel 40.00 07/17/17 11:00 112 14 96 07/17/17 09:31 07/17/17 07:09 60 Capillary Refill : I&O Intake and Output 07/17/17 00:00 Intake Total 2980 ml Output Total 8050 ml Balance -5070 ml Intake Oral 780 ml IV Total 2200 ml Output Urine Total 8050 ml General: Alert, No Acute Distress Lungs: Normal Air Movement, Other (slight end expiratory wheeze on right) Heart: Other (irregularly irregular, tachycardic) Neuro: Normal Speech Psych/Mental Status: Mental Status NL Results/Procedures Lab Laboratory Tests 07/16/17 12:25: Blood Gas Puncture Site RIGHT RADIAL, Blood Gas Patient Temperature 96.4, Arterial Blood pH 7.37, Arterial Blood Partial Pressure CO2 42, Arterial Blood Partial Pressure O2 101H, Arterial Blood HCO3 24, Arterial Blood Total CO2 25.6 , Arterial Blood Oxygen Saturation 99, Arterial Blood Base Excess -0.5, Haider Test POSITIVE, Blood Gas Ventilator Setting NO, Blood Gas Inspired Oxygen 100% BIPAP 07/16/17 15:15: Blood Gas Puncture Site RIGHT RADIAL, Blood Gas Patient Temperature 97.2, Arterial Blood pH 7.36L, Arterial Blood Partial Pressure CO2 46H, Arterial Blood Partial Pressure O2 68L, Arterial Blood HCO3 25, Arterial Blood Total CO2 26.8, Arterial Blood Oxygen Saturation 95, Arterial Blood Base Excess 0.4, Haider Test POSITIVE, Blood Gas Ventilator Setting NO, Blood Gas Inspired Oxygen 60% BIPAP 07/16/17 16:22: Glucometer 298H 07/16/17 20:01: Glucometer 330H 07/16/17 23:23: Glucometer 281H 07/17/17 04:54: Blood Gas Puncture Site L RAD, Blood Gas Patient Temperature 96.4, Arterial Blood pH 7.44H, Arterial Blood Partial Pressure CO2 39, Arterial Blood Partial Pressure O2 117H, Arterial Blood HCO3 27, Arterial Blood Total CO2 27.8, Arterial Blood Oxygen Saturation 100, Arterial Blood Base Excess 2.4, Haider Test YES-POS, Blood Gas Ventilator Setting NO, Blood Gas Inspired Oxygen 40% FIO2 07/17/17 05:35: White Blood Count 14.0H, Red Blood Count 3.95L, Hemoglobin 11.8, Hematocrit 35, Mean Corpuscular Volume 89, Mean Corpuscular Hemoglobin 30, Mean Corpuscular Hemoglobin Concent 34, Red Cell Distribution Width 15.0H, Platelet Count 142, Mean Platelet Volume 11.0H, Neutrophils (%) (Auto) 86H, Lymphocytes (%) (Auto) 10L, Monocytes (%) (Auto) 4, Eosinophils (%) (Auto) 0, Basophils (%) (Auto) 0, Neutrophils # (Auto) 12.0H, Lymphocytes # (Auto) 1.4, Monocytes # (Auto) 0.6, Eosinophils # (Auto) 0.0, Basophils # (Auto) 0.0, Sodium Level 143, Potassium Level 3.8, Chloride Level 107, Carbon Dioxide Level 24, Anion Gap 12, Blood Urea Nitrogen 28H, Creatinine 1.07, Estimat Glomerular Filtration Rate 53, BUN/ Creatinine Ratio 26, Glucose Level 176H, Calcium Level 8.5, Phosphorus Level 2.5 , Magnesium Level 1.5L, Total Bilirubin 0.5, Aspartate Amino Transf (AST/SGOT) 52H, Alanine Aminotransferase (ALT/SGPT) 119H, Alkaline Phosphatase 55, Total Protein 6.2L, Albumin 3.4 07/17/17 08:20: Glucometer 138H 07/17/17 11:23: Glucometer 279H Microbiology 07/14/17 Blood Culture - Preliminary, Resulted No growth 07/14/17 Gram Stain - Final, Resulted 07/14/17 Sputum Culture - Preliminary, Resulted Streptococcus Pneumoniae Presumptive Francie Albicans Radiology CTA Chest 07/14: IMPRESSION: 1. No evidence of acute pulmonary embolus. 2. Interval development of moderate scattered patchy and confluent alveolar infiltrates in the left lung. The appearance is suggestive of acute pneumonia. Followup after appropriate course of antibiotic therapy is recommended. 3. Mildly prominent right hilar lymph nodes; possibly reactive. However, metastatic process cannot be excluded given the patient's history of lung cancer. 4. Background of mild emphysematous disease. Assessment/Plan Assessment/Plan Plan Pneumonia- suspect possible pneumonia based on symptoms and CXR reported from clinic, will check blood cultures, sputum culture, CBC and lactic acid as well as CT chest to rule out PE or recurrent lung mass with history of lung cancer and new onset hypoxia -Azithromycin and ceftriaxone for CAP 07/15- CTA with no PE, findings consistent with pneumonia, continue azithromycin and ceftriaxone. Vitals and labs without evidence of sepsis on admission, but did have elevated lactic acid which is persistent 07/16- acute on chronic hypoxic hypercapneic respiratory failure, suspect combination of the pneumonia with now superimposed pulmonary edema, given 40 mg IV lasix overnight without much benefit, ABG this am with worsening acidosis and hypercapnea although slightly improved but still low oxygen on 100 FiO2, discussed with patient and she agreed to trial of bipap. She does not want to be seen by Dr. Ledezma, however, so we discussed that if she worsens and needs intubation, we may need to pursue transfer, and she would prefer [facility]. 07/17 Patient improved with bipap and 2 doses of 40 mg IV lasix in last 24 hours, now down to much lower oxygen requirement, continue to titrate bipap as tolerated. Consider repeat lasix today. Elevated lactic acid- does not meet other criteria for sepsis and lactic acid is stable between 2 and 4 without improvement after 30 ml/kg bolus, possibly due to PAYAM with metformin use at home, will monitor PAYAM- suspect due to hypovolemia, improved this am after fluids 07/16 continues to improve RESOLVED COPD exacerbation- consider COPD exacerbation versus pneumonia as noted above, RT protocol, supplemental oxygen as needed, solumedrol 07/15- change to prednisone taper, wean supplemental oxygen as tolerated 07/16- continue prednisone taper- respiratory support as above Influenza like illness- has had negative rapid testing x 2 in clinic, but given her underlying comorbidities and know exposure, concern persists for influenza, will treat empirically as she is hypoxic and requiring hospital admission Chest pain- on breathing, suspect related to her coughing, however, with significant heart history will check EKG and troponin, improving, EKG and troponin unremarkable DMII- diabetic diet, resume home insulin- will start levemir at half dose as she was not taking consistently, holding metformin due to contrast and PAYAM 07/15- blood sugar high, increase to full home doses and monitor closely CAD- resume home meds, EKG, troponin as noted above HTN- hold home antihypertensives with borderline low BP 07/15 BP increasing, resumed home metoprolol and amlodipine, holding losartan with PAYAM 07/16- markedly elevated overnight requiring hydralazine and increased dose of metoprolol, started on cardizem drip this am per Cardiology due to A fib 07/17- BP improved, monitor Elevated LFTs- trending down today, suspect related to underlying infection, patient also notes being told by GI she has fatty liver 07/16- increased slightly again, likely due to congestive hepatitis, monitor 07/17 trending back down Atrial fibrillation- new onset 07/16 am, Cardiology consulted and started cardizem drip and enoxaparin, echocardiogram pending- per Cardiology she did have an EF of 45% about 3 years ago, troponin remains negative 07/17 Repeat echo with stable systolic dysfunction, d/c cardizem drip this am, but may need to restart if RVR persists with orals, discussed risks of stroke associated with a fib and likely need for custodial anticoagulation with patient today DVT ppx- SCDs, enoxaparin Clinical Quality Measures DVT/VTE Risk/Contraindication: Risk Factor Score Per Nursin RFS Level Per Nursing on Admit: 3=High HUNTER FUENTES MD Jul 17, 2017 12:19 pm
[2017-07-17] MEDS: BENZONATATE 100 MG (TESSALON) CAPSULE PO PRN ×2 (13:29→20:35)
[2017-07-17] MEDS: cefTRIAXone INJECTION 1,000 MG in NS (IVPB) 50 ML IV SCH (13:57)
--- NOTE | 2017-07-17 16:37 | Cardiology Progress Note ---
Subjective Date Seen by Provider: Jul 17, 2017 Time Seen by Provider: 16:34 Subjective/Events-last exam patient was doing better this morning, feeling better, went back to atrial fibrillation with rapid ventricular response, multiple attempts to achieve adequate heart rate control was difficult due to her low blood pressure. Currently her heart rate is better her blood pressure is better still having some shortness of breath but reporting improvement. Review of Systems General: No Chills, No Night Sweats, No Fatigue, No Malaise, No Appetite, No Other HEENT: No Head Aches, No Visual Changes, No Eye Pain, No Ear Pain, No Dysphasia , No Sinus Congestion, No Post Nasal Drip, No Sore Throat, No Other Pulmonary: Dyspnea, Cough, No Pleuritic Chest Pain, No Other Cardiovascular: Palpitations, No: Chest Pain, Orthopnea, Paroxysmal Noc. Dyspnea, Edema, Lt Headedness, Other Objective-Cardiology Exam Last Set of Vital Signs Vital Signs 07/17/17 07/17/17 07/17/17 07/17/17 15:00 15:12 15:15 15:18 Temp 97.4 Pulse 99 Resp 26 B/P (MAP) 145/82 (103) Pulse Ox 96 O2 Delivery Vapotherm O2 Flow Rate 20.00 FiO2 60 Capillary Refill : I&O Intake and Output 07/17/17 00:00 Intake Total 2980 ml Output Total 8050 ml Balance -5070 ml Intake Oral 780 ml IV Total 2200 ml Output Urine Total 8050 ml General: Alert, Moderate Distress HEENT: Atraumatic, PERRLA Neck: Supple, No JVD Lungs: Normal Air Movement, Other (slight end expiratory wheeze on right) Heart: Normal S1, Normal S2, Other (irregularly irregular, tachycardic) Abdomen: Normal Bowel Sounds, Soft, No Tenderness Extremities: No Clubbing, No Cyanosis, No Edema Skin: No Rashes Neuro: Normal Speech, Strength at 5/5 X4 Ext Psych/Mental Status: Mental Status NL Results Lab Laboratory Tests 07/17/17 05:35 A/P-Cardiology Admission Diagnosis Afib with RVR Pneumonia CAD CHF Assessment/Plan Afib with RVR- converted to SR on Cardizem drip, it was discontinued and started on Lopressor IV, went back to atrial fibrillation this morning, received multiple doses of verapamil and digoxin, I will continue monitoring, heart rate is better controlled at this time, blood pressure is better. Status post transient hypotension, has history of hypertension, continue to monitor blood pressure. Next Status post acute respiratory failure, on BiPAP, better at this time. Continue to monitor Pneumonia- slowly improving. Continue antibiotics and continue to monitor. Influenza like illness- currently afebrile. Continue supportive care. Coronary artery disease, history of CABG 4 done in 2011 using HADLEY to LAD, vein graft to OM1, OM 2, PDA. Had an abnormal stress test in 2013 involving the septum. Had been asymptomatic and was scheduled for stress test, however, has not had testing done yet. Planning for stress test once more clinically stable. Congestive heart failure, acute on chronic left ventricular systolic dysfunction , ejection fraction 45 -50 percent, unchanged from previous 2D Echo. currently on beta blockers, evaluate tolerance to RACHEL inhibitor once her blood pressure is better and clinically more stable Hyperlipidemia, monitored as outpatient. Diabetes mellitus. Managed and followed by primary care physician. 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 Mark. Followed by Dr. Casillas. Continue to monitor. Currently in remission History of pancreatitis. History of cholecystectomy, tonsillectomy, laparoscopic oophorectomy, stenting of the common bile duct. Nonobstructive carotid artery stenosis-history of radiation to the neck, increased risk of carotid injury, continue to monitor. Clinical Quality Measures DVT/VTE Risk/Contraindication: Risk Factor Score Per Nursin RFS Level Per Nursing on Admit: 3=High KYLIE TAYLOR MD Jul 17, 2017 16:37
[2017-07-17] MEDS: DIGOXIN 0.25 MG (LANOXIN) TAB PO SCH (18:06)
[2017-07-17] MEDS: VERAPAMIL 5 MG/2 ML (CALAN) VIAL IV SCH ×2 (18:06→23:12)
[2017-07-17] MEDS: MONTELUKAST 10 MG (SINGULAIR) TAB PO SCH (20:35)
[2017-07-17] MEDS: SIMvastatin 10 MG (ZOCOR) TAB PO SCH (20:35)
[2017-07-17] MEDS: guaiFENesin/DM (ROBITUSSIN DM) 10 ML UDC PO PRN (23:06)
[2017-07-17] MEDS ORDERED: ALPRAZolam 0.25 MG (XANAX) TAB PO ONE (23:15)
[2017-07-18] VITALS (28 sets, daily range): BP systolic 89–198; BP diastolic 70–110
[2017-07-18] MEDS: RT-ALBUTEROL/IPRATROPIUM 3 ML (DUONEB) VIAL INH SCH ×5 (01:27→18:06)
[2017-07-18] MEDS: meTOprolol 5 MG/5 ML (LOPRESSOR) VIAL IV SCH ×2 (02:25→08:02)
[2017-07-18 05:03] LABS: ABG BASE EXCESS 1.1 MMOL/L (-2.5-2.5); ABG OXYGEN SATURATION 99 % (94-100); ABG PCO2 34 MMHG (35-45); ABG PH 7.47 (7.37-7.43); ABG PO2 112 MMHG (79-93); ABG TCO2 25.6 MMOL/L (21.0-31.0)
[2017-07-18 05:04] LABS: ALLENS TEST YES-POS
[2017-07-18 05:05] LABS: INSPIRED O2 40% BIPAP; PATIENT TEMP 97.7; VENTILATOR NO
[2017-07-18] MEDS: VERAPAMIL 5 MG/2 ML (CALAN) VIAL IV SCH ×4 (05:10→21:05)
[2017-07-18] MEDS: inSUlin (REGULAR) HUMAN 1 UNIT/0.01 ML (CHARGE PER UNIT) SC SCH ×6 (05:10→23:48)
[2017-07-18 05:26] LABS: BASOPHILS # (AUTO) 0.1 10^3/uL (0.0-0.1); BASOPHILS % (AUTO) 0 % (0-10); EOSINOPHILS % (AUTO) 0 % (0-10); HEMATOCRIT 37 % (35-52); HEMOGLOBIN 12.3 G/DL (11.5-16.0); LYMPHOCYTES # (AUTO) 1.9 X 10^3 (1.0-4.0); LYMPHOCYTES % (AUTO) 15 % (12-44); MEAN CORPUSCULAR HEMOGLOBIN 30 PG (25-34); MEAN CORPUSCULAR HGB CONC 34 G/DL (32-36); MEAN CORPUSCULAR VOLUME 88 FL (80-99); MONOCYTES # (AUTO) 0.7 X 10^3 (0.0-1.0); MONOCYTES % (AUTO) 6 % (0-12); NEUTROPHILS # (AUTO) 9.5 X 10^3 (1.8-7.8); NEUTROPHILS % (AUTO) 78 % (42-75); PLATELET COUNT 143 10^3/uL (130-400); RED BLOOD COUNT 4.16 10^6/uL (4.35-5.85); RED CELL DISTRIBUTION WIDTH 14.8 % (10.0-14.5); WHITE BLOOD COUNT 12.2 10^3/uL (4.3-11.0)
[2017-07-18 05:54] LABS: ALANINE AMINOTRANSFERASE 125 U/L (0-55); ALBUMIN 3.5 GM/DL (3.2-4.5); ALKALINE PHOSPHATASE 64 U/L (40-136); BILIRUBIN,TOTAL 0.6 MG/DL (0.1-1.0); BUN/CREATININE RATIO 30; CALCIUM 8.9 MG/DL (8.5-10.1); CARBON DIOXIDE 23 MMOL/L (21-32); CHLORIDE 107 MMOL/L (98-107); CREATININE SERUM 0.81 MG/DL (0.60-1.30); GFR ESTIMATED > 60; GLUCOSE 161 MG/DL (70-105); MAGNESIUM 1.8 MG/DL (1.8-2.4); POTASSIUM 3.4 MMOL/L (3.6-5.0); SODIUM 143 MMOL/L (135-145); TOTAL PROTEIN 6.4 GM/DL (6.4-8.2)
[2017-07-18] MEDS: PANTOPRAZOLE 20 MG TABLET (PROTONIX) PO SCH (06:32)
[2017-07-18] MEDS: LEVOTHYROXINE 50 MCG (LEVOTHROID) TAB PO SCH (06:33)
[2017-07-18] MEDS: POTASSIUM CL 10MEQ/50ML IVPB 50 ML IV SCH (06:39)
[2017-07-18] MEDS: KCL 20 MEQ TAB (K-DUR) PO SCH (06:39)
[2017-07-18] MEDS: MAGNESIUM 1 GM/100 ML IVPB 100 ML IV SCH (06:39)
--- NOTE | 2017-07-18 07:20 | Diagnostic Imaging Report ---
INDICATION: Respiratory distress. Comparison made with prior examination 07/17/2017. FINDINGS: There is cardiomegaly. There is some venous congestion. There has been previous median sternotomy. There is a right upper lobe infiltrate. There are also patchy bibasilar infiltrates. There is no pleural effusion or pneumothorax. [id number]-[id number] catheter overlies left hemithorax. IMPRESSION: Persistent right upper and bibasilar infiltrates. Cardiomegaly and mild central pulmonary venous congestion. Dictated by: Dictated on workstation # [id number]
[2017-07-18] MEDS: predniSONE 10 MG TAB PO SCH (07:58)
[2017-07-18] MEDS: DIGOXIN 0.25 MG (LANOXIN) TAB PO SCH (07:59)
[2017-07-18] MEDS: OMEGA 3 (FISH OIL) 1000 MG CAP PO SCH ×2 (07:59→21:03)
[2017-07-18] MEDS: ASPIRIN E.C. 81 MG (ECOTRIN) TAB PO SCH (07:59)
[2017-07-18] MEDS: AZITHROMYCIN 250 MG TAB (ZITHROMAX) PO SCH (08:00)
[2017-07-18] MEDS: ALPRAZolam 0.25 MG (XANAX) TAB PO PRN ×2 (08:00→21:04)
[2017-07-18] MEDS: guaiFENesin/DM (ROBITUSSIN DM) 10 ML UDC PO PRN ×4 (08:00→21:03)
[2017-07-18] MEDS: NICOTINE 21 MG (NICODERM) PATCH TD SCH (08:00)
[2017-07-18] MEDS: NICOTINE PATCH REMOVAL TP SCH (08:00)
[2017-07-18] MEDS: BENZONATATE 100 MG (TESSALON) CAPSULE PO PRN ×3 (08:00→21:03)
[2017-07-18] MEDS: NS IV 1000 ML 1,000 ML IV SCH (08:01)
[2017-07-18] MEDS: inSUlin DETERMIR 1 UNIT/0.01 ML (LEVEMIR) CHARGE PER UNIT SQ SCH ×2 (08:01→21:04)
--- NOTE | 2017-07-18 08:10 | Cardiology Progress Note ---
Subjective Date Seen by Provider: Jul 18, 2017 Time Seen by Provider: 08:08 Subjective/Events-last exam patient is in bed, still having some shortness of breath, chest x-ray showed persistent infiltrate. Has been hypertensive. Denied any chest pain or palpitation Review of Systems General: No Chills, No Night Sweats, No Fatigue, No Malaise, No Appetite, No Other HEENT: No Head Aches, No Visual Changes, No Eye Pain, No Ear Pain, No Dysphasia , No Sinus Congestion, No Post Nasal Drip, No Sore Throat, No Other Pulmonary: Dyspnea, Cough, No Pleuritic Chest Pain, No Other Cardiovascular: No: Chest Pain, Palpitations, Orthopnea, Paroxysmal Noc. Dyspnea, Edema, Lt Headedness, Other Objective-Cardiology Exam Last Set of Vital Signs Vital Signs 07/18/17 07/18/17 07/18/17 04:00 06:00 06:43 Temp 97.7 Pulse 78 Resp 33 B/P (MAP) 173/89 (117) Pulse Ox 94 O2 Delivery Vapotherm O2 Flow Rate 15.00 FiO2 45 Capillary Refill : I&O Intake and Output 07/17/17 23:59 Intake Total 3290 ml Output Total 2475 ml Balance 815 ml Intake Oral 2340 ml IV Total 950 ml Output Urine Total 2475 ml General: Alert, Oriented X3, Cooperative, Mild Distress HEENT: Atraumatic, PERRLA Neck: Supple, No JVD Lungs: Normal Air Movement, Other (slight end expiratory wheeze on right) Heart: Normal S1, Normal S2, Other (irregularly irregular, tachycardic) Abdomen: Normal Bowel Sounds, Soft, No Tenderness Extremities: No Clubbing, No Cyanosis, No Edema Skin: No Rashes Neuro: Normal Speech, Strength at 5/5 X4 Ext Psych/Mental Status: Mental Status NL Results Lab Laboratory Tests 07/18/17 05:10 A/P-Cardiology Admission Diagnosis Afib with RVR Pneumonia CAD CHF Assessment/Plan Paroxysmal atrial fibrillation, has been in and out of atrial fibrillation, initially converted to sinus rhythm on Cardizem drip, I started her on verapamil and metoprolol and digoxin, I'll change metoprolol to oral. Increase the dose and monitor her tolerance and response. Patient has been on Lovenox to reduce the risk of stroke, I will switch it to Eliquis. Elevated liver enzymes, persistent, I will stop simvastatin. Monitor liver enzymes. Status post transient hypotension, has history of hypertension, continue to monitor blood pressure. Status post acute respiratory failure, on BiPAP, better at this time. Continue to monitor Pneumonia, persistent infiltrate, on Rocephin and Zithromax. Managed by primary care physician. Influenza like illness- currently afebrile. Continue supportive care. Coronary artery disease, history of CABG 4 done in 2011 using HADLEY to LAD, vein graft to OM1, OM 2, PDA. Had an abnormal stress test in 2013 involving the septum. Had been asymptomatic and was scheduled for stress test, however, has not had testing done yet. Planning for stress test once more clinically stable. Congestive heart failure, acute on chronic left ventricular systolic dysfunction , ejection fraction 45 -50 percent, unchanged from previous 2D Echo. currently on beta blockers, evaluate tolerance to RACHEL inhibitor once her blood pressure is better and clinically more stable Hyperlipidemia, monitored as outpatient. Diabetes mellitus. Managed and followed by primary care physician. 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 Mark. Followed by Dr. Casillas. Continue to monitor. Currently in remission History of pancreatitis. History of cholecystectomy, tonsillectomy, laparoscopic oophorectomy, stenting of the common bile duct. Nonobstructive carotid artery stenosis-history of radiation to the neck, increased risk of carotid injury, continue to monitor. Clinical Quality Measures DVT/VTE Risk/Contraindication: Risk Factor Score Per Nursin RFS Level Per Nursing on Admit: 3=High KYLIE TAYLOR MD Jul 18, 2017 08:10
[2017-07-18] MEDS: OSELTAMIVIR 30 MG (TAMIFLU) BOX OF 10 PO SCH ×2 (08:22→21:05)
[2017-07-18] MEDS ORDERED: KCL 20 MEQ TAB (K-DUR) PO NR (09:00)
[2017-07-18] MEDS: APIXABAN 5 MG (ELIQUIS) TABLET PO SCH ×2 (09:49→21:03)
[2017-07-18] MEDS: LOSARTAN 50 MG (COZAAR) TAB PO SCH ×2 (09:49→21:03)
[2017-07-18] MEDS: meTOprolol TARTRATE 50 MG (LOPRESSOR) TAB PO SCH ×2 (09:49→21:04)
[2017-07-18] MEDS ORDERED: POLYETHYLENE GLYCOL 17 GM (MIRALAX) PACK PO ONE (12:00)
[2017-07-18] MEDS ORDERED: FUROSEMIDE 40 MG/4 ML INJ (LASIX) IVP NR (12:00)
--- NOTE | 2017-07-18 12:49 | Progress Note (SOAP) ---
Subjective Subjective/Events-last exam Afebrile, used bipap overnight, transitioned to vapotherm this am, but still on 45% FiO2. Has been anxious and got an extra dose of alprazolam per eICU overnight. She also has not had a bowel movement since 07/13 in spite of docusate use. Review of Systems Date Seen by Provider: Jul 18, 2017 Time Seen by Provider: 09:31 Objective Exam Last Set of Vital Signs Vital Signs Date Time Temp Pulse Resp B/P (MAP) Pulse Ox O2 Delivery O2 Flow Rate FiO2 07/18/17 11:20 96.9 Vapotherm 45.00 15.00 07/18/17 09:44 96 45 07/18/17 08:00 105 30 131/103 (112) Capillary Refill : I&O Intake and Output 07/18/17 00:00 Intake Total 3290 ml Output Total 2475 ml Balance 815 ml Intake Oral 2340 ml IV Total 950 ml Output Urine Total 2475 ml General: Alert, No Acute Distress Lungs: Normal Air Movement, Other (ronchi) Heart: No Murmurs, Other (irregularly irregular, normal rate) Extremities: No Edema Psych/Mental Status: Mental Status NL Results/Procedures Lab Laboratory Tests 07/17/17 15:20: Glucometer 321H 07/17/17 20:27: Glucometer 365H 07/17/17 23:08: Glucometer 313H 07/18/17 04:51: Glucometer 159H 07/18/17 04:55: Blood Gas Puncture Site L RAD, Blood Gas Patient Temperature 97.7, Arterial Blood pH 7.47H, Arterial Blood Partial Pressure CO2 34L, Arterial Blood Partial Pressure O2 112H, Arterial Blood HCO3 25, Arterial Blood Total CO2 25.6, Arterial Blood Oxygen Saturation 99, Arterial Blood Base Excess 1.1, [place] Test YES-POS, Blood Gas Ventilator Setting NO, Blood Gas Inspired Oxygen 40% BIPAP 07/18/17 05:10: White Blood Count 12.2H, Red Blood Count 4.16L, Hemoglobin 12.3, Hematocrit 37, Mean Corpuscular Volume 88, Mean Corpuscular Hemoglobin 30, Mean Corpuscular Hemoglobin Concent 34, Red Cell Distribution Width 14.8H, Platelet Count 143, Mean Platelet Volume 11.0H, Neutrophils (%) (Auto) 78H, Lymphocytes (%) (Auto) 15, Monocytes (%) (Auto) 6, Eosinophils (%) (Auto) 0, Basophils (%) (Auto) 0, Neutrophils # (Auto) 9.5H, Lymphocytes # (Auto) 1.9, Monocytes # (Auto) 0.7, Eosinophils # (Auto) 0.0, Basophils # (Auto) 0.1, Sodium Level 143, Potassium Level 3.4L, Chloride Level 107, Carbon Dioxide Level 23, Anion Gap 13, Blood Urea Nitrogen 24H, Creatinine 0.81, Estimat Glomerular Filtration Rate > 60, BUN /Creatinine Ratio 30, Glucose Level 161H, Calcium Level 8.9, Magnesium Level 1.8 , Total Bilirubin 0.6, Aspartate Amino Transf (AST/SGOT) 64H, Alanine Aminotransferase (ALT/SGPT) 125H, Alkaline Phosphatase 64, Total Protein 6.4, Albumin 3.5, Digoxin Level 0.40L 07/18/17 08:03: Glucometer 273H 07/18/17 11:37: Glucometer 217H Microbiology 07/14/17 Blood Culture - Preliminary, Resulted No growth 07/14/17 Gram Stain - Final, Resulted 07/14/17 Sputum Culture - Preliminary, Resulted Streptococcus Pneumoniae Presumptive Francie Albicans Radiology CTA Chest 07/14: IMPRESSION: 1. No evidence of acute pulmonary embolus. 2. Interval development of moderate scattered patchy and confluent alveolar infiltrates in the left lung. The appearance is suggestive of acute pneumonia. Followup after appropriate course of antibiotic therapy is recommended. 3. Mildly prominent right hilar lymph nodes; possibly reactive. However, metastatic process cannot be excluded given the patient's history of lung cancer. 4. Background of mild emphysematous disease. Assessment/Plan Assessment/Plan Plan Pneumonia- suspect possible pneumonia based on symptoms and CXR reported from clinic, will check blood cultures, sputum culture, CBC and lactic acid as well as CT chest to rule out PE or recurrent lung mass with history of lung cancer and new onset hypoxia -Azithromycin and ceftriaxone for CAP 07/15- CTA with no PE, findings consistent with pneumonia, continue azithromycin and ceftriaxone. Vitals and labs without evidence of sepsis on admission, but did have elevated lactic acid which is persistent 07/16- acute on chronic hypoxic hypercapneic respiratory failure, suspect combination of the pneumonia with now superimposed pulmonary edema, given 40 mg IV lasix overnight without much benefit, ABG this am with worsening acidosis and hypercapnea although slightly improved but still low oxygen on 100 FiO2, discussed with patient and she agreed to trial of bipap. She does not want to be seen by Dr. Ledezma, however, so we discussed that if she worsens and needs intubation, we may need to pursue transfer, and she would prefer [facility]. 07/17 Patient improved with bipap and 2 doses of 40 mg IV lasix in last 24 hours, now down to much lower oxygen requirement, continue to titrate bipap as tolerated. Consider repeat lasix today. 2/2 slowly improving, leukocytosis decreasing and no fever, so it does seem antibiotics are likely appropriately treating, but she is having slow improvement with her oxygenation, will give lasix 40 mg IV again today. Elevated lactic acid- does not meet other criteria for sepsis and lactic acid is stable between 2 and 4 without improvement after 30 ml/kg bolus, possibly due to PAYAM with metformin use at home, will monitor PAYAM- suspect due to hypovolemia, improved this am after fluids 07/16 continues to improve RESOLVED COPD exacerbation- consider COPD exacerbation versus pneumonia as noted above, RT protocol, supplemental oxygen as needed, solumedrol 07/15- change to prednisone taper, wean supplemental oxygen as tolerated 07/16- continue prednisone taper- respiratory support as above Influenza like illness- has had negative rapid testing x 2 in clinic, but given her underlying comorbidities and know exposure, concern persists for influenza, will treat empirically as she is hypoxic and requiring hospital admission Chest pain- on breathing, suspect related to her coughing, however, with significant heart history will check EKG and troponin, improving, EKG and troponin unremarkable DMII- diabetic diet, resume home insulin- will start levemir at half dose as she was not taking consistently, holding metformin due to contrast and PAYAM 07/15- blood sugar high, increase to full home doses and monitor closely CAD- resume home meds, EKG, troponin as noted above HTN- hold home antihypertensives with borderline low BP 07/15 BP increasing, resumed home metoprolol and amlodipine, holding losartan with PAYAM 07/16- markedly elevated overnight requiring hydralazine and increased dose of metoprolol, started on cardizem drip this am per Cardiology due to A fib 07/17- BP improved, monitor 2/2 BP increased after d/c of diltiazem drip, resume home losartan now that renal function is improved Elevated LFTs- trending down today, suspect related to underlying infection, patient also notes being told by GI she has fatty liver 07/16- increased slightly again, likely due to congestive hepatitis, monitor 07/17 trending back down Atrial fibrillation- new onset 07/16 am, Cardiology consulted and started cardizem drip and enoxaparin, echocardiogram pending- per Cardiology she did have an EF of 45% about 3 years ago, troponin remains negative 07/17 Repeat echo with stable systolic dysfunction, d/c cardizem drip this am, but may need to restart if RVR persists with orals, discussed risks of stroke associated with a fib and likely need for mcc anticoagulation with patient today 07/18 started on Eliquis per Cardiology, oral metoprolol with increased dose and digoxin Constipation- continue docusate, try Miralax today 07/18 Anxiety- on alprazolam 0.25 mg prn daily at home, will increase to BID prn for now given need for bipap, etc and increased anxiety DVT ppx- SCDs, enoxaparin Clinical Quality Measures DVT/VTE Risk/Contraindication: Risk Factor Score Per Nursin RFS Level Per Nursing on Admit: 3=High HUNTER FUENTES MD Jul 18, 2017 12:49 pm
[2017-07-18] MEDS ORDERED: amLODIPine 10 MG (NORVASC) TAB PO NR (13:00)
[2017-07-18] MEDS: cefTRIAXone INJECTION 1,000 MG in NS (IVPB) 50 ML IV SCH (13:37)
[2017-07-18] MEDS ORDERED: RT-LEVALBUTEROL (XOPENEX) 1.25 MG/3 ML NEB NON-FORMULARY INH PRN (15:30)
[2017-07-18] MEDS: hydrALAZINE (APRESOLINE) 25 MG TAB PO PRN (18:43)
[2017-07-18] MEDS: DOCUSATE SODIUM 100 MG (COLACE) CAP PO PRN (21:04)
[2017-07-18] MEDS: MONTELUKAST 10 MG (SINGULAIR) TAB PO SCH (21:04)
[2017-07-18] MEDS ORDERED: inSUlin ASPART (NovoLOG) 1 UNIT/0.01 ML (CHARGE PER UNIT) SC ONE (21:30)
[2017-07-18] MEDS ORDERED: inSUlin (REGULAR) HUMAN 1 UNIT/0.01 ML (CHARGE PER UNIT) SC ONE (21:30)
[2017-07-18] MEDS: RT-LEVALBUTEROL (XOPENEX) 1.25 MG/3 ML NEB NON-FORMULARY INH SCH (22:42)
[2017-07-19] VITALS (16 sets, daily range): BP systolic 151–190; BP diastolic 72–104
[2017-07-19] MEDS: VERAPAMIL 5 MG/2 ML (CALAN) VIAL IV SCH ×2 (03:34→07:58)
[2017-07-19] MEDS: inSUlin (REGULAR) HUMAN 1 UNIT/0.01 ML (CHARGE PER UNIT) SC SCH ×5 (04:04→20:03)
[2017-07-19 05:08] LABS: BASOPHILS # (AUTO) 0.2 10^3/uL (0.0-0.1); BASOPHILS % (AUTO) 2 % (0-10); EOSINOPHILS # (AUTO) 0.1 10^3/uL (0.0-0.3); EOSINOPHILS % (AUTO) 1 % (0-10); HEMATOCRIT 36 % (35-52); HEMOGLOBIN 12.4 G/DL (11.5-16.0); LYMPHOCYTES # (AUTO) 2.3 X 10^3 (1.0-4.0); LYMPHOCYTES % (AUTO) 19 % (12-44); MEAN CORPUSCULAR HEMOGLOBIN 30 PG (25-34); MEAN CORPUSCULAR HGB CONC 34 G/DL (32-36); MEAN CORPUSCULAR VOLUME 88 FL (80-99); MEAN PLATELET VOLUME 11.3 FL (7.4-10.4); MONOCYTES # (AUTO) 0.9 X 10^3 (0.0-1.0); MONOCYTES % (AUTO) 7 % (0-12); NEUTROPHILS # (AUTO) 8.9 X 10^3 (1.8-7.8); NEUTROPHILS % (AUTO) 72 % (42-75); PLATELET COUNT 155 10^3/uL (130-400); RED BLOOD COUNT 4.11 10^6/uL (4.35-5.85); RED CELL DISTRIBUTION WIDTH 14.5 % (10.0-14.5); WHITE BLOOD COUNT 12.4 10^3/uL (4.3-11.0)
[2017-07-19 05:36] LABS: BUN/CREATININE RATIO 33; CALCIUM 9.3 MG/DL (8.5-10.1); CARBON DIOXIDE 23 MMOL/L (21-32); CHLORIDE 105 MMOL/L (98-107); CREATININE SERUM 0.83 MG/DL (0.60-1.30); GFR ESTIMATED > 60; GLUCOSE 171 MG/DL (70-105); MAGNESIUM 1.6 MG/DL (1.8-2.4); POTASSIUM 3.6 MMOL/L (3.6-5.0); SODIUM 142 MMOL/L (135-145)
[2017-07-19] MEDS: POTASSIUM CL 10MEQ/50ML IVPB 50 ML IV SCH (05:38)
[2017-07-19] MEDS: MAGNESIUM 1 GM/100 ML IVPB 100 ML IV SCH ×3 (05:39→06:49)
[2017-07-19] MEDS: KCL 20 MEQ TAB (K-DUR) PO SCH (05:39)
[2017-07-19] MEDS: LEVOTHYROXINE 50 MCG (LEVOTHROID) TAB PO SCH (05:45)
[2017-07-19] MEDS: PANTOPRAZOLE 20 MG TABLET (PROTONIX) PO SCH (05:45)
[2017-07-19] MEDS: hydrALAZINE (APRESOLINE) 25 MG TAB PO PRN ×2 (05:47→15:20)
[2017-07-19] MEDS: guaiFENesin/DM (ROBITUSSIN DM) 10 ML UDC PO PRN ×3 (06:49→20:07)
[2017-07-19] MEDS: NS IV 1000 ML 1,000 ML IV SCH (07:53)
[2017-07-19] MEDS: predniSONE 10 MG TAB PO SCH (07:54)
[2017-07-19] MEDS: ALPRAZolam 0.25 MG (XANAX) TAB PO PRN ×2 (07:54→20:07)
[2017-07-19] MEDS: DIGOXIN 0.25 MG (LANOXIN) TAB PO SCH (07:54)
[2017-07-19] MEDS: APIXABAN 5 MG (ELIQUIS) TABLET PO SCH ×2 (07:54→20:02)
[2017-07-19] MEDS: NICOTINE PATCH REMOVAL TP SCH (07:54)
[2017-07-19] MEDS: LOSARTAN 50 MG (COZAAR) TAB PO SCH ×2 (07:55→20:02)
[2017-07-19] MEDS: OMEGA 3 (FISH OIL) 1000 MG CAP PO SCH ×2 (07:55→20:02)
[2017-07-19] MEDS: ASPIRIN E.C. 81 MG (ECOTRIN) TAB PO SCH (07:55)
[2017-07-19] MEDS: meTOprolol TARTRATE 50 MG (LOPRESSOR) TAB PO SCH ×2 (07:55→20:02)
[2017-07-19] MEDS: NICOTINE 21 MG (NICODERM) PATCH TD SCH (07:55)
[2017-07-19] MEDS: inSUlin DETERMIR 1 UNIT/0.01 ML (LEVEMIR) CHARGE PER UNIT SQ SCH ×2 (07:56→20:03)
[2017-07-19] MEDS: OSELTAMIVIR 30 MG (TAMIFLU) BOX OF 10 PO SCH (07:56)
[2017-07-19] MEDS: RT-LEVALBUTEROL (XOPENEX) 1.25 MG/3 ML NEB NON-FORMULARY INH SCH ×4 (08:16→22:45)
[2017-07-19] MEDS ORDERED: KCL 20 MEQ TAB (K-DUR) PO ONE (09:00)
[2017-07-19] MEDS: BENZONATATE 100 MG (TESSALON) CAPSULE PO PRN ×3 (09:12→22:09)
--- NOTE | 2017-07-19 09:36 | Diagnostic Imaging Report ---
INDICATION: Respiratory distress. COMPARISON: 07/18/2017. FINDINGS: Sternal wires midline. Subclavian line at the SVC. Right lung infiltrate substantially improved and nearly completely resolved. No adverse change. IMPRESSION: Significant improvements in infiltrate with no adverse development. Dictated by: Dictated on workstation # [id number]
--- NOTE | 2017-07-19 10:00 | Progress Note (SOAP) ---
Subjective Subjective/Events-last exam This morning the patient has few complaints. She is sitting up in the chair at bedside and is requesting to go downstairs to the floor today. Her only complaint is that she is coughing. She reports that she was prescribed phenergan and codeine cough syrup at the clinic a few months ago and feels that worked well for her cough. She has a listed allergy to codeine but reports that she didn't have any trouble with the medication. She has had no acute events overnight. Remains in afib per telemetry. Rate controlled. FiO2 40% with Vapotherm. Review of Systems Date Seen by Provider: Jul 19, 2017 Time Seen by Provider: 10:41 General: No Chills, No Night Sweats, No Fatigue, No Malaise HEENT: No Head Aches, No Eye Pain, No Ear Pain, No Dysphasia Pulmonary: Dyspnea, Cough, No Pleuritic Chest Pain Cardiovascular: No: Chest Pain, Palpitations, Lt Headedness Gastrointestinal: No: Nausea, Vomiting, Abdominal Pain, Diarrhea, Constipation Genitourinary: No Hematuria, No Retention Neurological: No: Change in speech, Confusion, Seizures Objective Exam Last Set of Vital Signs Vital Signs Date Time Temp Pulse Resp B/P (MAP) Pulse Ox O2 Delivery O2 Flow Rate FiO2 07/19/17 09:00 78 25 159/87 (111) 94 Vapotherm 45.00 10.00 07/19/17 08:17 45 07/19/17 08:00 97.7 Capillary Refill : I&O Intake and Output 07/19/17 00:00 Intake Total 2300 ml Output Total 6850 ml Balance -4550 ml Intake Oral 2300 ml Output Urine Total 6850 ml General: Alert, Oriented X3, Cooperative, No Acute Distress HEENT: Atraumatic, EOMI, Mucous Memb Moist/[place] Neck: Supple, No Thyromegaly Lungs: Other (diminished) Heart: Normal S1, Normal S2, No Murmurs, Other (irregular rate and rhythm, rate controlled afib on telemetry) Abdomen: Normal Bowel Sounds, Soft, No Tenderness, No Masses Extremities: No Clubbing, Normal Pulses Skin: No Rashes, No Significant Lesion Neuro: Normal Speech, Normal Tone, Sensation Intact, Cranial Nerves 3-12 NL Psych/Mental Status: Mental Status NL, Mood NL Results/Procedures Lab Laboratory Tests 07/18/17 11:37: Glucometer 217H 07/18/17 16:16: Glucometer 393H 07/18/17 20:49: Glucometer 424*H 07/18/17 22:42: Glucometer 335H 07/18/17 23:45: Glucometer 304H 07/19/17 03:53: Glucometer 168H 07/19/17 04:09: White Blood Count 12.4H, Red Blood Count 4.11L, Hemoglobin 12.4, Hematocrit 36, Mean Corpuscular Volume 88, Mean Corpuscular Hemoglobin 30, Mean Corpuscular Hemoglobin Concent 34, Red Cell Distribution Width 14.5, Platelet Count 155, Mean Platelet Volume 11.3H, Neutrophils (%) (Auto) 72, Lymphocytes (%) (Auto) 19 , Monocytes (%) (Auto) 7, Eosinophils (%) (Auto) 1, Basophils (%) (Auto) 2, Neutrophils # (Auto) 8.9H, Lymphocytes # (Auto) 2.3, Monocytes # (Auto) 0.9, Eosinophils # (Auto) 0.1, Basophils # (Auto) 0.2H, Sodium Level 142, Potassium Level 3.6, Chloride Level 105, Carbon Dioxide Level 23, Anion Gap 14, Blood Urea Nitrogen 27H, Creatinine 0.83, Estimat Glomerular Filtration Rate > 60, BUN /Creatinine Ratio 33, Glucose Level 171H, Calcium Level 9.3, Magnesium Level 1.6L 07/19/17 07:43: Glucometer 125H Microbiology 07/14/17 Blood Culture - Preliminary, Resulted No growth 07/14/17 Gram Stain - Final, Complete 07/14/17 Sputum Culture - Final, Complete Streptococcus Pneumoniae Presumptive Francie Albicans See Comments Radiology CTA Chest 07/14: IMPRESSION: 1. No evidence of acute pulmonary embolus. 2. Interval development of moderate scattered patchy and confluent alveolar infiltrates in the left lung. The appearance is suggestive of acute pneumonia. Followup after appropriate course of antibiotic therapy is recommended. 3. Mildly prominent right hilar lymph nodes; possibly reactive. However, metastatic process cannot be excluded given the patient's history of lung cancer. 4. Background of mild emphysematous disease. Assessment/Plan Assessment/Plan Admission Dx seed below Plan Pneumonia- suspect possible pneumonia based on symptoms and CXR reported from clinic, will check blood cultures, sputum culture, CBC and lactic acid as well as CT chest to rule out PE or recurrent lung mass with history of lung cancer and new onset hypoxia -Azithromycin and ceftriaxone for CAP 07/15- CTA with no PE, findings consistent with pneumonia, continue azithromycin and ceftriaxone. Vitals and labs without evidence of sepsis on admission, but did have elevated lactic acid which is persistent 07/16- acute on chronic hypoxic hypercapneic respiratory failure, suspect combination of the pneumonia with now superimposed pulmonary edema, given 40 mg IV lasix overnight without much benefit, ABG this am with worsening acidosis and hypercapnea although slightly improved but still low oxygen on 100 FiO2, discussed with patient and she agreed to trial of bipap. She does not want to be seen by Dr. Ledezma, however, so we discussed that if she worsens and needs intubation, we may need to pursue transfer, and she would prefer [facility]. 07/17 Patient improved with bipap and 2 doses of 40 mg IV lasix in last 24 hours, now down to much lower oxygen requirement, continue to titrate bipap as tolerated. Consider repeat lasix today. 2/2 slowly improving, leukocytosis decreasing and no fever, so it does seem antibiotics are likely appropriately treating, but she is having slow improvement with her oxygenation, will give lasix 40 mg IV again today. 2/3 - afebrile, sputum culture positive for francie albicans and strep pneumo; Day 6 Rocephin and will add diflucan for francie. WBC 12.4; continues to have very slow improvement in oxygenation, will likely diurese again tomorrow Elevated lactic acid- does not meet other criteria for sepsis and lactic acid is stable between 2 and 4 without improvement after 30 ml/kg bolus, possibly due to PAYAM with metformin use at home, will monitor PAYAM- suspect due to hypovolemia, improved this am after fluids 07/16 continues to improve RESOLVED COPD exacerbation- consider COPD exacerbation versus pneumonia as noted above, RT protocol, supplemental oxygen as needed, solumedrol 07/15- change to prednisone taper, wean supplemental oxygen as tolerated 07/16- continue prednisone taper- respiratory support as above Influenza like illness- has had negative rapid testing x 2 in clinic, but given her underlying comorbidities and know exposure, concern persists for influenza, will treat empirically as she is hypoxic and requiring hospital admission Chest pain- on breathing, suspect related to her coughing, however, with significant heart history will check EKG and troponin, improving, EKG and troponin unremarkable DMII- diabetic diet, resume home insulin- will start levemir at half dose as she was not taking consistently, holding metformin due to contrast and PAYAM 07/15- blood sugar high, increase to full home doses and monitor closely 2/3 - encouraged pt not to refuse insulin doses, as glucose control is important to help her improve and work towards discharge CAD- resume home meds, EKG, troponin as noted above HTN- hold home antihypertensives with borderline low BP 07/15 BP increasing, resumed home metoprolol and amlodipine, holding losartan with PAYAM 07/16- markedly elevated overnight requiring hydralazine and increased dose of metoprolol, started on cardizem drip this am per Cardiology due to A fib 07/17- BP improved, monitor 07/18 BP increased after d/c of diltiazem drip, resume home losartan now that renal function is improved 2/3 - mild HTN. Cardiology following. Elevated LFTs- trending down today, suspect related to underlying infection, patient also notes being told by GI she has fatty liver 07/16- increased slightly again, likely due to congestive hepatitis, monitor 07/17 trending back down Atrial fibrillation- new onset 07/16 am, Cardiology consulted and started cardizem drip and enoxaparin, echocardiogram pending- per Cardiology she did have an EF of 45% about 3 years ago, troponin remains negative 07/17 Repeat echo with stable systolic dysfunction, d/c cardizem drip this am, but may need to restart if RVR persists with orals, discussed risks of stroke associated with a fib and likely need for alf anticoagulation with patient today 2/2 started on Eliquis per Cardiology, oral metoprolol with increased dose and digoxin 2/3 paroxysmal afib managed per cards, on eliquis, metoprolol, digoxin, verapamil Constipation- continue docusate, try Miralax today 2/2 Anxiety- on alprazolam 0.25 mg prn daily at home, will increase to BID prn for now given need for bipap, etc and increased anxiety DVT ppx- SCDs, eliquis Will transfer patient to the floor with telemetry and have her start PT. Phenergan and codeine cough syrup PRN. Patient likely will need several more days in the hospital, as she is very slow to wean off respiratory support. May need to consider trying to qualify patient for swing bed, as her progress is not going very swiftly at this time and her oxygen requirements at this time remain quite high. Clinical Quality Measures DVT/VTE Risk/Contraindication: Risk Factor Score Per Nursin RFS Level Per Nursing on Admit: 3=High HEATHER SPARKS DO Jul 19, 2017 10:00
[2017-07-19] MEDS: fluCOnazole (DIFLUCAN) 100 MG TAB PO SCH (11:35)
--- NOTE | 2017-07-19 14:06 | Cardiology Progress Note ---
Cardiology SOAP Progress Note Subjective: No chest pain. Objective: I&O/Vital Signs Vital Sign - Last 12Hours 07/19/17 07/19/17 07/19/17 07/19/17 02:17 03:00 03:33 04:00 Temp 98.0 Pulse 80 80 Resp 19 17 B/P (MAP) 151/97 (115) Pulse Ox 98 97 O2 Delivery NIV Bilevel NIV Bilevel O2 Flow Rate 40.00 40.00 FiO2 40 07/19/17 07/19/17 07/19/17 07/19/17 04:00 05:00 06:00 07:00 Pulse 75 78 78 80 Resp 19 22 22 B/P (MAP) 153/95 (114) 190/102 (131) 190/97 (128) Pulse Ox 99 92 92 O2 Delivery NIV Bilevel NIV Bilevel Vapotherm O2 Flow Rate 40.00 40.00 40.00 10.00 07/19/17 07/19/17 07/19/17 07/19/17 07:00 08:00 08:00 08:17 Temp 97.7 Pulse 80 80 Resp 17 23 B/P (MAP) 177/91 (119) 178/98 (124) Pulse Ox 93 94 95 O2 Delivery Vapotherm Vapotherm Vapotherm Vapotherm O2 Flow Rate 40.00 45.00 10.00 10.00 10.00 10.00 FiO2 45 45 07/19/17 07/19/17 07/19/17 07/19/17 09:00 10:00 11:00 11:30 Temp 98.9 Pulse 78 76 80 Resp 25 32 16 B/P (MAP) 159/87 (111) 163/92 (115) Pulse Ox 94 95 92 O2 Delivery Vapotherm Vapotherm Vapotherm O2 Flow Rate 45.00 45.00 45.00 10.00 10.00 10.00 07/19/17 07/19/17 07/19/17 12:00 12:00 13:00 Pulse 79 82 Resp 16 B/P (MAP) 186/104 (131) Pulse Ox 95 O2 Delivery Vapotherm NIV Bilevel O2 Flow Rate 45.00 10.00 FiO2 40 Intake and Output 07/19/17 00:00 Intake Total 1380 ml Output Total 4900 ml Balance -3520 ml Weight (Pounds): 213 Weight (Ounces): 3.0 Weight (Calculated Kilograms): 96.039664 Constitutional: No appears stated age, No AAO x 3, No apparent distress, No PERRL, No well-developed, No well-nourished, No other Respiratory: No accessory muscle use, No respiratory distress, No chest tender , No chest expansion is symmetric, No chest is bilaterally symmetric, No lungs clear to percussion, No lungs clear to auscultation, No crackles, No rhonchi, No rales, No stridor, No wheezing, No pleural rub, No other Cardiovascular: regular rate-rhythm, No irregularly irregular, No extra beats, No parasternal heave is noted, No JVD, No edema, No bradycardia, No tachycardia , No point of maximal impulse, No cardiac thrills are palpable, S1 and S2, No gallop/S3, No gallop/S4, No diastolic murmur, No systolic murmur, No friction rub, No click, No other Gastrointestional: No tender, No soft, No round, No distended, No pulsatile mass, No organomegaly, No guarding, No rebound, No tenderness, No hernia, No mass, No audible bowel sounds, No abnormal bowel sounds, No abdominal bruits, No spleenomegaly, No other Extremities: No normal range of motion, No non-tender, No normal inspection, No pedal edema, No calf tenderness, No normal capillary refill, No pelvis stable , No calf tenderness, No inflammation, No pedal edema, No slow capillary refill , No swelling, No other, No abrasion, No clubbing, No cyanosis, No ecchymosis, No laceration, No no lower extremity edema bilateral, No significant edema, No tenderness, No wound Neurologic/Psychiatric: No driver salesman II-XII nml as tested, No no motor/sensory deficits, No alert, No normal mood/affect, No oriented x 3, No abnormal cerebellar tests, No abnormal driver salesman II-XII, No abnormal gait, No aphasia, No EOM palsy, No facial droop, No motor weakness, No sensory deficit, No depressed affect, No disoriented x 3, No other, No grossly intact, No power is 5/5 both on sides Skin: No normal color, No warm/dry, No cyanosis, No cool, No diaphoresis, No damp, No ecchymosis, No jaundice, No mottled, No pallor, No rash, No tattoos/ piercings, No ulcerations, No rash on exposed areas, No ulcerations on exposed areas, No other Results/Procedures: Labs Laboratory Tests 07/18/17 16:16: Glucometer 393H 07/18/17 20:49: Glucometer 424*H 07/18/17 22:42: Glucometer 335H 07/18/17 23:45: Glucometer 304H 07/19/17 03:53: Glucometer 168H 07/19/17 04:09: White Blood Count 12.4H, Red Blood Count 4.11L, Hemoglobin 12.4, Hematocrit 36, Mean Corpuscular Volume 88, Mean Corpuscular Hemoglobin 30, Mean Corpuscular Hemoglobin Concent 34, Red Cell Distribution Width 14.5, Platelet Count 155, Mean Platelet Volume 11.3H, Neutrophils (%) (Auto) 72, Lymphocytes (%) (Auto) 19 , Monocytes (%) (Auto) 7, Eosinophils (%) (Auto) 1, Basophils (%) (Auto) 2, Neutrophils # (Auto) 8.9H, Lymphocytes # (Auto) 2.3, Monocytes # (Auto) 0.9, Eosinophils # (Auto) 0.1, Basophils # (Auto) 0.2H, Sodium Level 142, Potassium Level 3.6, Chloride Level 105, Carbon Dioxide Level 23, Anion Gap 14, Blood Urea Nitrogen 27H, Creatinine 0.83, Estimat Glomerular Filtration Rate > 60, BUN /Creatinine Ratio 33, Glucose Level 171H, Calcium Level 9.3, Magnesium Level 1.6L 07/19/17 07:43: Glucometer 125H 07/19/17 11:35: Glucometer 329H Microbiology 07/14/17 Blood Culture - Preliminary, Resulted No growth 07/14/17 Gram Stain - Final, Complete 07/14/17 Sputum Culture - Final, Complete Streptococcus Pneumoniae Presumptive Francie Albicans See Comments A/P: Assessment/Dx: Afib with controlled ventricular rate. Pneumonia CAD CHF Plan: Paroxysmal atrial fibrillation, has been in and out of atrial fibrillation, continue verapamil, metoprolol and digoxin. Oral anticoagulation with Eliquis. Increased LFTs: Simvastatin stopped by Dr. Gonzalez. Status post transient hypotension, has history of hypertension, continue to monitor blood pressure. Status post acute respiratory failure, on BiPAP, better at this time. Continue to monitor Pneumonia, persistent infiltrate, on Rocephin and Zithromax. Managed by primary care physician. Influenza like illness- currently afebrile. Continue supportive care. Coronary artery disease, history of CABG 4 done in 2011 using HADLEY to LAD, vein graft to OM1, OM 2, PDA. Had an abnormal stress test in 2013 involving the septum. Had been asymptomatic and was scheduled for stress test, however, has not had testing done yet. Planning for stress test once more clinically stable. Congestive heart failure, acute on chronic left ventricular systolic dysfunction , ejection fraction 45 -50 percent, unchanged from previous 2D Echo. currently on beta blockers, evaluate tolerance to RACHEL inhibitor once her blood pressure is better and clinically more stable Hyperlipidemia, monitored as outpatient. Diabetes mellitus. Managed and followed by primary care physician. 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 Mark. Followed by Dr. Casillas. Continue to monitor. Currently in remission History of pancreatitis. History of cholecystectomy, tonsillectomy, laparoscopic oophorectomy, stenting of the common bile duct. Nonobstructive carotid artery stenosis-history of radiation to the neck, increased risk of carotid injury, continue to monitor. Thank you for your consultation. Please call me if you have any questions. Gloria Gandara MD, FACP, FACC, FSCAI, FHRS, CCDS Interventional Cardiology Cardiac Electrophysiology Vascular Medicine and Endovascular Interventions Narciso GANDARA MD Jul 19, 2017 2:06 pm
[2017-07-19] MEDS: cefTRIAXone INJECTION 1,000 MG in NS (IVPB) 50 ML IV SCH (15:05)
[2017-07-19] MEDS: PROMETHAZINE/ CODEINE SYRUP 5 ML UDC PO PRN ×2 (15:05→22:09)
[2017-07-19] MEDS ORDERED: inSUlin (REGULAR) HUMAN 1 UNIT/0.01 ML (CHARGE PER UNIT) SC ONE (16:00)
[2017-07-19] MEDS: MONTELUKAST 10 MG (SINGULAIR) TAB PO SCH (20:02)
[2017-07-19] MEDS: DOCUSATE SODIUM 100 MG (COLACE) CAP PO PRN (20:06)
[2017-07-20] VITALS (8 sets, daily range): BP systolic 126–184; BP diastolic 60–93
[2017-07-20] MEDS: guaiFENesin/DM (ROBITUSSIN DM) 10 ML UDC PO PRN ×3 (00:14→20:45)
[2017-07-20] MEDS: inSUlin (REGULAR) HUMAN 1 UNIT/0.01 ML (CHARGE PER UNIT) SC SCH ×6 (00:14→22:02)
[2017-07-20] MEDS: hydrALAZINE (APRESOLINE) 25 MG TAB PO PRN ×2 (00:14→20:46)
[2017-07-20] MEDS: LEVOTHYROXINE 50 MCG (LEVOTHROID) TAB PO SCH (05:41)
[2017-07-20] MEDS: PROMETHAZINE/ CODEINE SYRUP 5 ML UDC PO PRN ×4 (05:41→22:36)
[2017-07-20] MEDS: PANTOPRAZOLE 20 MG TABLET (PROTONIX) PO SCH (05:41)
[2017-07-20] MEDS: BENZONATATE 100 MG (TESSALON) CAPSULE PO PRN ×3 (05:41→23:55)
[2017-07-20 07:12] LABS: BASOPHILS # (AUTO) 0.2 10^3/uL (0.0-0.1); BASOPHILS % (AUTO) 2 % (0-10); EOSINOPHILS # (AUTO) 0.1 10^3/uL (0.0-0.3); EOSINOPHILS % (AUTO) 1 % (0-10); HEMATOCRIT 36 % (35-52); HEMOGLOBIN 12.2 G/DL (11.5-16.0); LYMPHOCYTES # (AUTO) 2.3 X 10^3 (1.0-4.0); LYMPHOCYTES % (AUTO) 19 % (12-44); MEAN CORPUSCULAR HEMOGLOBIN 30 PG (25-34); MEAN CORPUSCULAR HGB CONC 34 G/DL (32-36); MEAN CORPUSCULAR VOLUME 88 FL (80-99); MEAN PLATELET VOLUME 10.7 FL (7.4-10.4); MONOCYTES # (AUTO) 1.1 X 10^3 (0.0-1.0); MONOCYTES % (AUTO) 9 % (0-12); NEUTROPHILS # (AUTO) 8.6 X 10^3 (1.8-7.8); NEUTROPHILS % (AUTO) 70 % (42-75); PLATELET COUNT 171 10^3/uL (130-400); RED BLOOD COUNT 4.12 10^6/uL (4.35-5.85); RED CELL DISTRIBUTION WIDTH 14.5 % (10.0-14.5); WHITE BLOOD COUNT 12.3 10^3/uL (4.3-11.0)
[2017-07-20 07:30] LABS: ALANINE AMINOTRANSFERASE 118 U/L (0-55); ALBUMIN 3.4 GM/DL (3.2-4.5); ALKALINE PHOSPHATASE 59 U/L (40-136); BILIRUBIN,DIRECT 0.2 MG/DL (0.0-0.3); BILIRUBIN,INDIRECT 0.4 MG/DL; BILIRUBIN,TOTAL 0.6 MG/DL (0.1-1.0); BUN/CREATININE RATIO 31; CARBON DIOXIDE 27 MMOL/L (21-32); CHLORIDE 104 MMOL/L (98-107); GFR ESTIMATED > 60; GLUCOSE 118 MG/DL (70-105); MAGNESIUM 1.4 MG/DL (1.8-2.4); SODIUM 141 MMOL/L (135-145); TOTAL PROTEIN 6.2 GM/DL (6.4-8.2)
[2017-07-20] MEDS: RT-LEVALBUTEROL (XOPENEX) 1.25 MG/3 ML NEB NON-FORMULARY INH SCH ×2 (08:18→21:41)
[2017-07-20] MEDS: NICOTINE 21 MG (NICODERM) PATCH TD SCH (08:32)
[2017-07-20] MEDS: DIGOXIN 0.25 MG (LANOXIN) TAB PO SCH (08:32)
[2017-07-20] MEDS: inSUlin DETERMIR 1 UNIT/0.01 ML (LEVEMIR) CHARGE PER UNIT SQ SCH ×2 (08:33→22:02)
[2017-07-20] MEDS: fluCOnazole (DIFLUCAN) 100 MG TAB PO SCH (08:33)
[2017-07-20] MEDS: meTOprolol TARTRATE 50 MG (LOPRESSOR) TAB PO SCH ×2 (08:33→20:46)
[2017-07-20] MEDS: DOCUSATE SODIUM 100 MG (COLACE) CAP PO PRN ×2 (08:34→20:46)
[2017-07-20] MEDS: OMEGA 3 (FISH OIL) 1000 MG CAP PO SCH ×2 (08:34→20:46)
[2017-07-20] MEDS: predniSONE 10 MG TAB PO SCH (08:34)
[2017-07-20] MEDS: LOSARTAN 50 MG (COZAAR) TAB PO SCH (08:35)
[2017-07-20] MEDS: ASPIRIN E.C. 81 MG (ECOTRIN) TAB PO SCH (08:35)
[2017-07-20] MEDS: NICOTINE PATCH REMOVAL TP SCH (08:35)
[2017-07-20] MEDS: APIXABAN 5 MG (ELIQUIS) TABLET PO SCH ×2 (08:35→20:46)
[2017-07-20] MEDS: ALPRAZolam 0.25 MG (XANAX) TAB PO PRN ×2 (08:44→22:35)
--- NOTE | 2017-07-20 09:09 | Progress Note (SOAP) ---
Subjective Subjective/Events-last exam No significant complaints this morning. Patient has done well overnight, and this morning she is sitting up in a chair at bedside, and her Vapotherm 45% has been decreased from 10L to 5L. Patient has had some elevated blood pressure, and cardiology is also present at the time of exam. Will increase her losartan dose to 100 mg. No acute events overnight, no concerns other than HTN from nursing staff. Review of Systems Date Seen by Provider: Jul 20, 2017 Time Seen by Provider: 11:30 General: No Chills, No Night Sweats, No Fatigue, No Malaise HEENT: No Head Aches, No Visual Changes, No Ear Pain, No Dysphasia Pulmonary: Dyspnea, Cough Cardiovascular: No: Chest Pain, Palpitations Gastrointestinal: No: Nausea, Vomiting, Abdominal Pain, Diarrhea, Constipation Genitourinary: No Dysuria, No Retention Musculoskeletal: No: neck pain, back pain Neurological: No: Numbness, Incoordination, Change in speech, Confusion, Seizures Objective Exam Last Set of Vital Signs Vital Signs Date Time Temp Pulse Resp B/P (MAP) Pulse Ox O2 Delivery O2 Flow Rate FiO2 07/20/17 08:00 97.9 82 20 174/87 (116) 94 Vapotherm 45.00 10.00 07/19/17 22:10 45 Capillary Refill : I&O Intake and Output 07/20/17 00:00 Intake Total 2900 ml Output Total 4750 ml Balance -1850 ml Intake Oral 2800 ml IV Total 100 ml Output Urine Total 4750 ml # Bowel Movements 1 General: Alert, Oriented X3, Cooperative, No Acute Distress HEENT: Atraumatic, EOMI, Mucous Memb Moist/[place] Neck: Supple, No Thyromegaly Lungs: Other (diminished in bases, but much improved from previous) Heart: Regular Rate, Normal S1, Normal S2, No Murmurs, Other (regular rate on auscultation, however telemetry review demonstrates that patient remains in rate controlled atrial flutter) Abdomen: Normal Bowel Sounds, Soft, No Tenderness, No Masses Extremities: No Clubbing, No Tenderness/Swelling Skin: No Rashes, No Significant Lesion Neuro: Normal Speech, Normal Tone, Sensation Intact, Cranial Nerves 3-12 NL Psych/Mental Status: Mental Status NL, Mood NL Results/Procedures Lab Laboratory Tests 07/19/17 11:35: Glucometer 329H 2/3/18 15:38: Glucometer 425*H 07/19/17 19:48: Glucometer 376H 07/20/17 00:05: Glucometer 312H 07/20/17 04:01: Glucometer 212H 07/20/17 06:57: White Blood Count 12.3H, Red Blood Count 4.12L, Hemoglobin 12.2, Hematocrit 36, Mean Corpuscular Volume 88, Mean Corpuscular Hemoglobin 30, Mean Corpuscular Hemoglobin Concent 34, Red Cell Distribution Width 14.5, Platelet Count 171, Mean Platelet Volume 10.7H, Neutrophils (%) (Auto) 70, Lymphocytes (%) (Auto) 19 , Monocytes (%) (Auto) 9, Eosinophils (%) (Auto) 1, Basophils (%) (Auto) 2, Neutrophils # (Auto) 8.6H, Lymphocytes # (Auto) 2.3, Monocytes # (Auto) 1.1H, Eosinophils # (Auto) 0.1, Basophils # (Auto) 0.2H, Sodium Level 141, Potassium Level 4.0, Chloride Level 104, Carbon Dioxide Level 27, Anion Gap 10, Blood Urea Nitrogen 28H, Creatinine 0.90, Estimat Glomerular Filtration Rate > 60, BUN /Creatinine Ratio 31, Glucose Level 118H, Calcium Level 10.0, Magnesium Level 1.4L, Total Bilirubin 0.6, Direct Bilirubin 0.2, Indirect Bilirubin 0.4, Aspartate Amino Transf (AST/SGOT) 46H, Alanine Aminotransferase (ALT/SGPT) 118H , Alkaline Phosphatase 59, Total Protein 6.2L, Albumin 3.4 07/20/17 08:48: Glucometer 101 Microbiology 07/14/17 Blood Culture - Final, Complete No growth 07/14/17 Gram Stain - Final, Complete 07/14/17 Sputum Culture - Final, Complete Streptococcus Pneumoniae Presumptive Francie Albicans See Comments Radiology CTA Chest 07/14: IMPRESSION: 1. No evidence of acute pulmonary embolus. 2. Interval development of moderate scattered patchy and confluent alveolar infiltrates in the left lung. The appearance is suggestive of acute pneumonia. Followup after appropriate course of antibiotic therapy is recommended. 3. Mildly prominent right hilar lymph nodes; possibly reactive. However, metastatic process cannot be excluded given the patient's history of lung cancer. 4. Background of mild emphysematous disease. Assessment/Plan Assessment/Plan Admission Dx Pneumonia Plan Pneumonia- suspect possible pneumonia based on symptoms and CXR reported from clinic, will check blood cultures, sputum culture, CBC and lactic acid as well as CT chest to rule out PE or recurrent lung mass with history of lung cancer and new onset hypoxia -Azithromycin and ceftriaxone for CAP 07/15- CTA with no PE, findings consistent with pneumonia, continue azithromycin and ceftriaxone. Vitals and labs without evidence of sepsis on admission, but did have elevated lactic acid which is persistent 07/16- acute on chronic hypoxic hypercapneic respiratory failure, suspect combination of the pneumonia with now superimposed pulmonary edema, given 40 mg IV lasix overnight without much benefit, ABG this am with worsening acidosis and hypercapnea although slightly improved but still low oxygen on 100 FiO2, discussed with patient and she agreed to trial of bipap. She does not want to be seen by Dr. Ledezma, however, so we discussed that if she worsens and needs intubation, we may need to pursue transfer, and she would prefer [facility]. 2/ Patient improved with bipap and 2 doses of 40 mg IV lasix in last 24 hours, now down to much lower oxygen requirement, continue to titrate bipap as tolerated. Consider repeat lasix today. 2/2 slowly improving, leukocytosis decreasing and no fever, so it does seem antibiotics are likely appropriately treating, but she is having slow improvement with her oxygenation, will give lasix 40 mg IV again today. 2/3 - afebrile, sputum culture positive for francie albicans and strep pneumo; Day 6 Rocephin and will add diflucan for francie. WBC 12.4; continues to have very slow improvement in oxygenation, will likely diurese again tomorrow 2/4 - afebrile, WBC trending down, Day 7 Rocephin, Day 2 Diflucan, slowly starting to wean down on her oxygen today; discussed with patient that we may need to consider discharge on home oxygen for a period of time once she is down to a few liters by NC, as it is anticipated that it will be several more days at a minimum before patient will be on room air. Will have to see how patient progresses, but if willing and able to go home on home O2, anticipate that she may be ready for discharge in 48-72 hours. Cardiology is present at the time of the conversation, and they agree the patient would likely benefit from discharge on NC when ready and weaning to room air after discharge as tolerated. Elevated lactic acid- does not meet other criteria for sepsis and lactic acid is stable between 2 and 4 without improvement after 30 ml/kg bolus, possibly due to PAYAM with metformin use at home, will monitor PAYAM- suspect due to hypovolemia, improved this am after fluids 07/16 continues to improve RESOLVED COPD exacerbation- consider COPD exacerbation versus pneumonia as noted above, RT protocol, supplemental oxygen as needed, solumedrol 07/15- change to prednisone taper, wean supplemental oxygen as tolerated 07/16- continue prednisone taper- respiratory support as above Influenza like illness- has had negative rapid testing x 2 in clinic, but given her underlying comorbidities and know exposure, concern persists for influenza, will treat empirically as she is hypoxic and requiring hospital admission Chest pain- on breathing, suspect related to her coughing, however, with significant heart history will check EKG and troponin, improving, EKG and troponin unremarkable DMII- diabetic diet, resume home insulin- will start levemir at half dose as she was not taking consistently, holding metformin due to contrast and PAYAM 07/15- blood sugar high, increase to full home doses and monitor closely /3 - encouraged pt not to refuse insulin doses, as glucose control is important to help her improve and work towards discharge 07/20 - will change sugars to AC and HS, sugars have been 125 - 329 - 425 - 376 - 312- 212 - 118 - 101 CAD- resume home meds, EKG, troponin as noted above HTN- hold home antihypertensives with borderline low BP 07/15 BP increasing, resumed home metoprolol and amlodipine, holding losartan with PAYAM 07/16- markedly elevated overnight requiring hydralazine and increased dose of metoprolol, started on cardizem drip this am per Cardiology due to A fib 07/17- BP improved, monitor 07/18 BP increased after d/c of diltiazem drip, resume home losartan now that renal function is improved 2/3 - mild HTN. Cardiology following. 07/20 - continues to have elevated blood pressure, per cardiology will increase Losartan to 100 mg PO daily Elevated LFTs- trending down today, suspect related to underlying infection, patient also notes being told by GI she has fatty liver 07/16- increased slightly again, likely due to congestive hepatitis, monitor 07/17 trending back down 07/20 - AST and ALT remain elevated but are trending down Atrial fibrillation- new onset 07/16 am, Cardiology consulted and started cardizem drip and enoxaparin, echocardiogram pending- per Cardiology she did have an EF of 45% about 3 years ago, troponin remains negative 07/17 Repeat echo with stable systolic dysfunction, d/c cardizem drip this am, but may need to restart if RVR persists with orals, discussed risks of stroke associated with a fib and likely need for skilled nursing anticoagulation with patient today 07/18 started on Eliquis per Cardiology, oral metoprolol with increased dose and digoxin 07/19 paroxysmal afib managed per cards, on eliquis, metoprolol, digoxin, verapamil 07/20 - rate controlled, but when listening rate sound regular but review of telemetry demonstrates persistent atrial flutter. Constipation- continue docusate, try Miralax today 07/18 Anxiety- on alprazolam 0.25 mg prn daily at home, will increase to BID prn for now given need for bipap, etc and increased anxiety DVT ppx- SCDs, eliquis Phenergan and codeine cough syrup PRN. Patient has improved from yesterday and is starting to wean down on her supplemental oxygen requirements. If she is willing and qualifies for home oxygen, patient may be ready for discharge in 48- 72 hours. Clinical Quality Measures DVT/VTE Risk/Contraindication: Risk Factor Score Per Nursin RFS Level Per Nursing on Admit: 3=High HEATHER SPARKS DO Jul 20, 2017 09:09
[2017-07-20] MEDS ORDERED: ALBUMIN 25% 25 GM/100 ML 50 ML IV ONE ×2 (09:15→15:30)
[2017-07-20] MEDS ORDERED: FUROSEMIDE 40 MG/4 ML INJ (LASIX) IVP ONE ×2 (09:15→15:30)
[2017-07-20] MEDS: MAGNESIUM 1 GM/100 ML IVPB 100 ML IV SCH ×3 (09:54→11:57)
[2017-07-20] MEDS: NS IV 1000 ML 1,000 ML IV SCH (09:54)
[2017-07-20] MEDS ORDERED: LOSARTAN 50 MG (COZAAR) TAB PO ONE (11:45)
--- NOTE | 2017-07-20 12:45 | Cardiology Progress Note ---
Cardiology SOAP Progress Note Subjective: Mild shortness of breath. Objective: I&O/Vital Signs Vital Sign - Last 12Hours 07/20/17 07/20/17 07/20/17 07/20/17 00:58 01:00 01:00 01:49 Pulse 78 82 B/P (MAP) 184/90 (121) 180/72 (108) O2 Flow Rate 40.00 07/20/17 07/20/17 07/20/17 07/20/17 03:45 04:00 07:00 08:00 Temp 97.6 97.9 Pulse 80 80 81 82 Resp 19 18 20 B/P (MAP) 177/93 (121) 174/87 (116) Pulse Ox 97 96 94 O2 Delivery Vapotherm Vapotherm O2 Flow Rate 40.00 45.00 45.00 10.00 10.00 07/20/17 09:00 Pulse Ox 95 O2 Delivery Vapotherm O2 Flow Rate 5.00 Intake and Output 07/20/17 00:00 Intake Total 2050 ml Output Total 3100 ml Balance -1050 ml Weight (Pounds): 213 Weight (Ounces): 4.0 Weight (Calculated Kilograms): 96.503645 Constitutional: No appears stated age, No AAO x 3, No apparent distress, No PERRL, No well-developed, No well-nourished, No other Respiratory: No accessory muscle use, No respiratory distress, No chest tender , No chest expansion is symmetric, No chest is bilaterally symmetric, No lungs clear to percussion, No lungs clear to auscultation, No crackles, No rhonchi, No rales, No stridor, No wheezing, No pleural rub, No other Cardiovascular: regular rate-rhythm, No irregularly irregular, No extra beats, No parasternal heave is noted, No JVD, No edema, No bradycardia, No tachycardia , No point of maximal impulse, No cardiac thrills are palpable, S1 and S2, No gallop/S3, No gallop/S4, No diastolic murmur, No systolic murmur, No friction rub, No click, No other Gastrointestional: No tender, No soft, No round, No distended, No pulsatile mass, No organomegaly, No guarding, No rebound, No tenderness, No hernia, No mass, No audible bowel sounds, No abnormal bowel sounds, No abdominal bruits, No spleenomegaly, No other Extremities: No normal range of motion, No non-tender, No normal inspection, No pedal edema, No calf tenderness, No normal capillary refill, No pelvis stable , No calf tenderness, No inflammation, No pedal edema, No slow capillary refill , No swelling, No other, No abrasion, No clubbing, No cyanosis, No ecchymosis, No laceration, No no lower extremity edema bilateral, No significant edema, No tenderness, No wound Neurologic/Psychiatric: No tinner helper II-XII nml as tested, No no motor/sensory deficits, No alert, No normal mood/affect, No oriented x 3, No abnormal cerebellar tests, No abnormal tinner helper II-XII, No abnormal gait, No aphasia, No EOM palsy, No facial droop, No motor weakness, No sensory deficit, No depressed affect, No disoriented x 3, No other, No grossly intact, No power is 5/5 both on sides Skin: No normal color, No warm/dry, No cyanosis, No cool, No diaphoresis, No damp, No ecchymosis, No jaundice, No mottled, No pallor, No rash, No tattoos/ piercings, No ulcerations, No rash on exposed areas, No ulcerations on exposed areas, No other Results/Procedures: Labs Laboratory Tests 07/19/17 15:38: Glucometer 425*H 07/19/17 19:48: Glucometer 376H 07/20/17 00:05: Glucometer 312H 07/20/17 04:01: Glucometer 212H 07/20/17 06:57: White Blood Count 12.3H, Red Blood Count 4.12L, Hemoglobin 12.2, Hematocrit 36, Mean Corpuscular Volume 88, Mean Corpuscular Hemoglobin 30, Mean Corpuscular Hemoglobin Concent 34, Red Cell Distribution Width 14.5, Platelet Count 171, Mean Platelet Volume 10.7H, Neutrophils (%) (Auto) 70, Lymphocytes (%) (Auto) 19 , Monocytes (%) (Auto) 9, Eosinophils (%) (Auto) 1, Basophils (%) (Auto) 2, Neutrophils # (Auto) 8.6H, Lymphocytes # (Auto) 2.3, Monocytes # (Auto) 1.1H, Eosinophils # (Auto) 0.1, Basophils # (Auto) 0.2H, Sodium Level 141, Potassium Level 4.0, Chloride Level 104, Carbon Dioxide Level 27, Anion Gap 10, Blood Urea Nitrogen 28H, Creatinine 0.90, Estimat Glomerular Filtration Rate > 60, BUN /Creatinine Ratio 31, Glucose Level 118H, Calcium Level 10.0, Magnesium Level 1.4L, Total Bilirubin 0.6, Direct Bilirubin 0.2, Indirect Bilirubin 0.4, Aspartate Amino Transf (AST/SGOT) 46H, Alanine Aminotransferase (ALT/SGPT) 118H , Alkaline Phosphatase 59, Total Protein 6.2L, Albumin 3.4 07/20/17 08:48: Glucometer 101 Microbiology 07/14/17 Blood Culture - Final, Complete No growth 07/14/17 Gram Stain - Final, Complete 07/14/17 Sputum Culture - Final, Complete Streptococcus Pneumoniae Presumptive Francie Albicans See Comments A/P: Assessment/Dx: Afib with controlled ventricular rate. Pneumonia CAD CHF Plan: Paroxysmal atrial fibrillation, has been in and out of atrial fibrillation, continue verapamil, metoprolol and digoxin. Oral anticoagulation with Eliquis. Elevated blood pressure: Will increase losartan to 100 mg every day. Increased LFTs: Simvastatin stopped by Dr. Gonzalez. Status post acute respiratory failure, on BiPAP, better at this time. Continue to monitor Pneumonia, persistent infiltrate, on Rocephin and Zithromax. Managed by primary care physician. Influenza like illness- currently afebrile. Continue supportive care. Coronary artery disease, history of CABG 4 done in 2011 using HADLEY to LAD, vein graft to OM1, OM 2, PDA. Had an abnormal stress test in 2013 involving the septum. Had been asymptomatic and was scheduled for stress test, however, has not had testing done yet. Planning for stress test once more clinically stable. Congestive heart failure, acute on chronic left ventricular systolic dysfunction , ejection fraction 45 -50 percent, unchanged from previous 2D Echo. currently on beta blockers, evaluate tolerance to RACHEL inhibitor once her blood pressure is better and clinically more stable Hyperlipidemia, monitored as outpatient. Diabetes mellitus. Managed and followed by primary care physician. 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 Mark. Followed by Dr. Casillas. Continue to monitor. Currently in remission History of pancreatitis. History of cholecystectomy, tonsillectomy, laparoscopic oophorectomy, stenting of the common bile duct. Nonobstructive carotid artery stenosis-history of radiation to the neck, increased risk of carotid injury, continue to monitor. Thank you for your consultation. Please call me if you have any questions. Gloria Gandara MD, FACP, FACC, FSCAI, FHRS, CCDS Interventional Cardiology Cardiac Electrophysiology Vascular Medicine and Endovascular Interventions Narciso GANDARA MD Jul 20, 2017 12:45 pm
[2017-07-20] MEDS: cefTRIAXone INJECTION 1,000 MG in NS (IVPB) 50 ML IV SCH (13:03)
[2017-07-20] MEDS: CATHETER FLUSH 10 ML SYR IV SCH ×2 (13:04→22:01)
[2017-07-20] MEDS ORDERED: inSUlin (REGULAR) HUMAN 1 UNIT/0.01 ML (CHARGE PER UNIT) SC SCH (16:00)
[2017-07-20] MEDS: MONTELUKAST 10 MG (SINGULAIR) TAB PO SCH (20:46)
[2017-07-21] VITALS (9 sets, daily range): BP systolic 112–199; BP diastolic 65–102
[2017-07-21] MEDS ORDERED: hydrALAZINE (APESOLINE) 20 MG/ML VIAL IV ONE (03:45)
[2017-07-21] MEDS: PANTOPRAZOLE 20 MG TABLET (PROTONIX) PO SCH (06:14)
[2017-07-21] MEDS: LEVOTHYROXINE 50 MCG (LEVOTHROID) TAB PO SCH (06:14)
[2017-07-21] MEDS: PROMETHAZINE/ CODEINE SYRUP 5 ML UDC PO PRN ×2 (06:15→20:57)
[2017-07-21] MEDS: hydrALAZINE (APRESOLINE) 25 MG TAB PO SCH ×3 (06:15→22:47)
[2017-07-21] MEDS: CATHETER FLUSH 10 ML SYR IV SCH ×3 (06:15→22:47)
[2017-07-21] MEDS: inSUlin (REGULAR) HUMAN 1 UNIT/0.01 ML (CHARGE PER UNIT) SC SCH ×4 (06:15→20:57)
[2017-07-21 06:44] LABS: BASOPHILS # (AUTO) 0.1 10^3/uL (0.0-0.1); BASOPHILS % (AUTO) 1 % (0-10); EOSINOPHILS # (AUTO) 0.1 10^3/uL (0.0-0.3); EOSINOPHILS % (AUTO) 1 % (0-10); HEMATOCRIT 37 % (35-52); HEMOGLOBIN 12.6 G/DL (11.5-16.0); LYMPHOCYTES # (AUTO) 2.2 X 10^3 (1.0-4.0); LYMPHOCYTES % (AUTO) 18 % (12-44); MEAN CORPUSCULAR HEMOGLOBIN 30 PG (25-34); MEAN CORPUSCULAR HGB CONC 34 G/DL (32-36); MEAN CORPUSCULAR VOLUME 88 FL (80-99); MEAN PLATELET VOLUME 11.2 FL (7.4-10.4); MONOCYTES # (AUTO) 0.6 X 10^3 (0.0-1.0); MONOCYTES % (AUTO) 5 % (0-12); NEUTROPHILS # (AUTO) 8.9 X 10^3 (1.8-7.8); NEUTROPHILS % (AUTO) 75 % (42-75); PLATELET COUNT 192 10^3/uL (130-400); RED BLOOD COUNT 4.22 10^6/uL (4.35-5.85); RED CELL DISTRIBUTION WIDTH 14.5 % (10.0-14.5); WHITE BLOOD COUNT 11.9 10^3/uL (4.3-11.0)
[2017-07-21 07:10] LABS: CALCIUM 10.1 MG/DL (8.5-10.1); CREATININE SERUM 0.98 MG/DL (0.60-1.30); MAGNESIUM 1.6 MG/DL (1.8-2.4); POTASSIUM 3.7 MMOL/L (3.6-5.0)
--- NOTE | 2017-07-21 08:50 | Cardiology Progress Note ---
Subjective Date Seen by Provider: Jul 21, 2017 Time Seen by Provider: 08:47 Subjective/Events-last exam Patient sitting up in bed, no new complaints. States dyspnea has improved. Denies any CP. Telemetry reveals atrial flutter. Review of Systems General: No Night Sweats, No Fatigue, No Malaise HEENT: No Visual Changes, No Dysphasia, No Sore Throat Pulmonary: No Dyspnea, No Cough Cardiovascular: No: Chest Pain, Palpitations Gastrointestinal: No: Nausea, Vomiting Genitourinary: No Frequency Musculoskeletal: No: neck pain, back pain Neurological: No: Weakness, Numbness, Change in speech, Confusion Objective-Cardiology Exam Last Set of Vital Signs Vital Signs 07/20/17 07/21/17 15:31 08:00 Temp 97.2 Pulse 80 Resp 18 B/P (MAP) 112/65 (81) Pulse Ox 95 O2 Delivery Nasal Cannula O2 Flow Rate 3.50 FiO2 36 Capillary Refill : I&O Intake and Output 07/21/17 00:00 Intake Total 2732 ml Output Total 5100 ml Balance -2368 ml Intake Oral 2732 ml Output Urine Total 5100 ml # Bowel Movements 2 Daily Weight Change No General: Alert, Oriented X3, Cooperative, No Acute Distress HEENT: Atraumatic, EOMI, Mucous Memb Moist/[place] Neck: Supple, No Thyromegaly Lungs: Other (diminished in bases, but much improved from previous) Heart: Regular Rate, Normal S1, Normal S2, No Murmurs, Other (regular rate on auscultation, however telemetry review demonstrates that patient remains in rate controlled atrial flutter) Abdomen: Normal Bowel Sounds, Soft, No Tenderness, No Masses Extremities: No Clubbing, No Tenderness/Swelling Skin: No Rashes, No Significant Lesion Neuro: Normal Speech, Normal Tone, Sensation Intact, Cranial Nerves 3-12 NL Psych/Mental Status: Mental Status NL, Mood NL Results Lab Laboratory Tests 07/21/17 06:06 A/P-Cardiology Admission Diagnosis Afib with RVR Pneumonia CAD CHF Assessment/Plan Paroxysmal atrial fibrillation, initially converted to sinus rhythm on Cardizem drip, now in atrial flutter, rate controlled. Currently on PO Lopressor, digoxin , Eliquis. Elevated liver enzymes, persistent, simvastatin discontinued. Monitor liver enzymes. Status post acute respiratory failure, better at this time. Continue to monitor Pneumonia, improving,continue antibiotics. Managed by primary care physician. Influenza like illness- currently afebrile. Continue supportive care. Coronary artery disease, history of CABG 4 done in 2011 using HADLEY to LAD, vein graft to OM1, OM 2, PDA. Had an abnormal stress test in 2013 involving the septum. Had been asymptomatic and was scheduled for stress test, however, has not had testing done yet. Planning for stress test once more clinically stable. Congestive heart failure, acute on chronic left ventricular systolic dysfunction , ejection fraction 45 -50 percent, unchanged from previous 2D Echo. currently on beta blockers, ARB. Contineu to monitor. Hyperlipidemia, monitored as outpatient. Statin discontinued secondary to elevated LFT's Diabetes mellitus. Managed and followed by primary care physician. 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 Mark. Followed by Dr. Casillas. Continue to monitor. Currently in remission History of pancreatitis. History of cholecystectomy, tonsillectomy, laparoscopic oophorectomy, stenting of the common bile duct. Nonobstructive carotid artery stenosis-history of radiation to the neck, increased risk of carotid injury, continue to monitor. Clinical Quality Measures DVT/VTE Risk/Contraindication: Risk Factor Score Per Nursin RFS Level Per Nursing on Admit: 3=High KAVON CROUCH Jul 21, 2017 08:50
[2017-07-21] MEDS: meTOprolol TARTRATE 50 MG (LOPRESSOR) TAB PO SCH ×2 (08:54→20:57)
[2017-07-21] MEDS: LOSARTAN 100 MG (COZAAR) TABLET PO SCH (08:54)
[2017-07-21] MEDS: OMEGA 3 (FISH OIL) 1000 MG CAP PO SCH ×2 (08:54→20:57)
[2017-07-21] MEDS: DIGOXIN 0.25 MG (LANOXIN) TAB PO SCH (08:55)
[2017-07-21] MEDS: ASPIRIN E.C. 81 MG (ECOTRIN) TAB PO SCH (08:55)
[2017-07-21] MEDS: predniSONE 10 MG TAB PO SCH (08:55)
[2017-07-21] MEDS: fluCOnazole (DIFLUCAN) 100 MG TAB PO SCH (08:55)
[2017-07-21] MEDS: APIXABAN 5 MG (ELIQUIS) TABLET PO SCH ×2 (08:55→20:57)
[2017-07-21] MEDS: NICOTINE PATCH REMOVAL TP SCH (08:56)
[2017-07-21] MEDS: inSUlin DETERMIR 1 UNIT/0.01 ML (LEVEMIR) CHARGE PER UNIT SQ SCH ×2 (08:56→21:00)
[2017-07-21] MEDS: NICOTINE 21 MG (NICODERM) PATCH TD SCH (08:56)
--- NOTE | 2017-07-21 09:46 | Physical Therapy Evaluation ---
PT Evaluation-General Medical Diagnosis Admission Date Jul 15, 2017 at 08:16 Medical Diagnosis: Pneumonia Onset Date: Jul 15, 2017 Therapy Diagnosis Therapy Diagnosis: generalized weakness/debility Height/Weight Height (Feet): 5 Height (Inches): 10.00 Weight (Pounds): 207 Weight (Ounces): 0.0 Precautions Precautions/Isolations: Standard Precautions Weight Bear Status Right Lower Extremity: Right Full Weight Bearing Left Lower Extremity: Left Full Weight Bearing Referral Physician: Juwan Reason for Referral: Evaluation/Treatment Medical History Pertinent Medical History: CAD, COPD, DM, Smoking Additional Medical History lung and throat cancer Current History admit from clinic with cough, vomiting and decreased SAO2 Social History Home: Single Level Current Living Status: Spouse Prior/Core FIM Prior Level of Function Functional [place] Measure 0=Not Assessed/NA 4=Minimal Assistance 1=Total Assistance 5=Supervision or Setup 2=Maximal Assistance 6=Modified [place] 3=Moderate Assistance 7=Complete [place] Bed Mobility: 7 Transfers (B,C,W/C) (FIM): 7 Gait: 7 Locomotion: 7 PT Evaluation-Current Subjective Patient reluctantly agrees to PT. Pain Numeric Pain Scale: 0-No Pain Location: No Pain Reported Objective Patient Orientation: Normal For Age Problem Solving: Good Attachments: Oxygen (3L) ROM/Strength ROM Lower Extremities bilateral LE WNL Strength Lower Extremities right knee flexion/extension 4/5; hip flexion 4/5; DF/PF 4/5; abd/add 4/5 left knee flexion/extension 4/5; hip flexion 4/5; DF/PF 4/5; abd/add 4/5 Integumentary/Posture Integumentary refer to nursing notes Bowel Incontinence: No Bladder Incontinence: No Posture erect Neuromuscular (Tone, Coordination, Reflexes) grossly intact Sensory Vision: Wears Glasses Hearing: Functional Sensation Right Lower Extremit: Intact Sensation Left Lower Extremity: Intact Transfers Functional [place] Measure 0=Not Assessed/NA 4=Minimal Assistance 1=Total Assistance 5=Supervision or Setup 2=Maximal Assistance 6=Modified [place] 3=Moderate Assistance 7=Complete [place] Transfers (B, C, W/C) (FIM): 7 Scootin Rollin Supine to/from Sit: 7 Sit to/from Stand: 7 Gait Mode of Locomotion: Walk Anticipated Mode of Locomotion: Walk Gait (FIM): 6 Distance (FIM): 3=150 ft Distance: 250' Gait Level of Assist: 6 Gait Assistive Device: FWW Comments/Gait Description safe and functional Balance Sitting Static: Normal Sitting Dynamic: Normal Standing Static: Normal Standing Dynamic: Normal Assessment/Needs 57 y.o. patient, will be seen short term to ensure she is ambulating PRN in hallway to improve pulmonary function. Patient agrees. Rehab Potential: Good PT Short Term Goals Short Term Goals Time Frame: Jul 25, 2017 Transfers (B,C,W/C) (FIM): 7 Gait (FIM): 7 Distance (FIM): 3=150 ft Gait Level of Assist: 7 Gait Assistive Device: None PT Plan Treatment/Plan Treatment Plan: Continue Plan of Care Treatment Plan: Education, Functional Activity Roberto, Functional Strength, Gait , Therapeutic Exercise Treatment Duration: Jul 25, 2017 Frequency: 5 times per week Estimated Hrs Per Day: .25 hour per day Patient and/or Family Agrees t: Yes Discharge Recommendations Therapy D/C Recommendations: Home w/ Family Support Time/GCodes Time In: 830 Time Out: 849 Total Billed Treatment Time: 19 Total Billed Treatment 1 visit [facility] 19 min JOSSIE WEAVER PT Jul 21, 2017 09:46
[2017-07-21] MEDS: ALPRAZolam 0.25 MG (XANAX) TAB PO PRN ×2 (09:49→22:47)
[2017-07-21] MEDS: RT-LEVALBUTEROL (XOPENEX) 1.25 MG/3 ML NEB NON-FORMULARY INH SCH ×3 (09:51→22:35)
--- NOTE | 2017-07-21 11:16 | Cardiology Progress Note ---
Subjective Date Seen by Provider: Jul 21, 2017 Time Seen by Provider: 11:14 Subjective/Events-last exam Patient is sitting in a chair, feeling better, breathing better, still using oxygen, denied any chest pain. Had a long discussion with the patient regarding electrical cardioversion, she prefer to wait at this time Review of Systems General: No Chills, No Night Sweats, No Fatigue, No Malaise, No Appetite, No Other HEENT: No Head Aches, No Visual Changes, No Eye Pain, No Ear Pain, No Dysphasia , No Sinus Congestion, No Post Nasal Drip, No Sore Throat, No Other Pulmonary: Dyspnea, No Cough, No Pleuritic Chest Pain, No Other Cardiovascular: No: Chest Pain, Palpitations, Orthopnea, Paroxysmal Noc. Dyspnea, Edema, Lt Headedness, Other Objective-Cardiology Exam Last Set of Vital Signs Vital Signs 07/20/17 07/21/17 07/21/17 15:31 08:00 09:51 Temp 97.2 Pulse 80 Resp 18 B/P (MAP) 112/65 (81) Pulse Ox 92 O2 Delivery Nasal Cannula O2 Flow Rate 3.00 FiO2 36 Capillary Refill : I&O Intake and Output 07/21/17 00:00 Intake Total 4682 ml Output Total 5100 ml Balance -418 ml Intake Oral 2732 ml IV Total 1950 ml Output Urine Total 5100 ml # Bowel Movements 2 Daily Weight Change No General: Alert, Oriented X3, Cooperative, No Acute Distress HEENT: Atraumatic, EOMI, Mucous Memb Moist/[place] Neck: Supple, No Thyromegaly Lungs: Other (diminished in bases, but much improved from previous) Heart: Normal S1, Normal S2, No Murmurs, Other (regular rate on auscultation, however telemetry review demonstrates that patient remains in rate controlled atrial flutter) Abdomen: Normal Bowel Sounds, Soft, No Tenderness, No Masses Extremities: No Clubbing, No Tenderness/Swelling Skin: No Rashes, No Significant Lesion Neuro: Normal Speech, Normal Tone, Sensation Intact, Cranial Nerves 3-12 NL Psych/Mental Status: Mental Status NL, Mood NL Results Lab Laboratory Tests 07/21/17 06:06 A/P-Cardiology Admission Diagnosis Afib with RVR Pneumonia CAD CHF Assessment/Plan Paroxysmal atrial fibrillation, initially converted to sinus rhythm on Cardizem drip, now in atrial flutter, rate controlled. Currently on PO Lopressor, digoxin , Eliquis. Discussed electrical cardioversion, patient has to wait for now. Elevated liver enzymes, persistent, simvastatin discontinued, numbers are improving. I will reevaluate in am Status post acute respiratory failure, better at this time. Continue to monitor Pneumonia, improving,continue antibiotics. Managed by primary care physician. Influenza like illness- currently afebrile. Continue supportive care. Coronary artery disease, history of CABG 4 done in 2011 using HADLEY to LAD, vein graft to OM1, OM 2, PDA. Had an abnormal stress test in 2013 involving the septum. Had been asymptomatic and was scheduled for stress test, however, has not had testing done yet. Planning for stress test once more clinically stable. Congestive heart failure, acute on chronic left ventricular systolic dysfunction , ejection fraction 45 -50 percent, unchanged from previous 2D Echo. currently on beta blockers, ARB. Contineu to monitor. Hyperlipidemia, monitored as outpatient. Statin discontinued secondary to elevated LFT's Diabetes mellitus. Managed and followed by primary care physician. 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 Mark. Followed by Dr. Casillas. Continue to monitor. Currently in remission History of pancreatitis. History of cholecystectomy, tonsillectomy, laparoscopic oophorectomy, stenting of the common bile duct. Nonobstructive carotid artery stenosis-history of radiation to the neck, increased risk of carotid injury, continue to monitor. Clinical Quality Measures DVT/VTE Risk/Contraindication: Risk Factor Score Per Nursin RFS Level Per Nursing on Admit: 3=High KYLIE TAYLOR MD Jul 21, 2017 11:16
--- NOTE | 2017-07-21 15:22 | Progress Note (SOAP) ---
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 She states that she is less SOB than yesterday but "will make it work" as she is ready to go home. Review of Systems Date Seen by Provider: Jul 21, 2017 Time Seen by Provider: 10:00 Pulmonary: No Dyspnea Cardiovascular: No: Chest Pain Objective Exam Last Set of Vital Signs Vital Signs Date Time Temp Pulse Resp B/P (MAP) Pulse Ox O2 Delivery O2 Flow Rate FiO2 07/21/17 14:02 94 Nasal Cannula 3.00 07/21/17 13:00 75 07/21/17 12:00 97.4 18 157/90 (112) 07/20/17 15:31 36 Capillary Refill : I&O Intake and Output 07/21/17 00:00 Intake Total 4682 ml Output Total 5100 ml Balance -418 ml Intake Oral 2732 ml IV Total 1950 ml Output Urine Total 5100 ml # Bowel Movements 2 Daily Weight Change No General: Alert, Oriented X3, Cooperative, No Acute Distress Lungs: Clear to Auscultation, Normal Air Movement Heart: Regular Rate, Normal S1, Normal S2, No Murmurs, Gallops, Rubs Abdomen: Normal Bowel Sounds, Soft, No Tenderness, No Hepatosplenomegaly, No Masses Extremities: No Clubbing, No Cyanosis, No Edema Psych/Mental Status: Mental Status NL, Mood NL Results/Procedures Lab Laboratory Tests 07/20/17 15:55: Glucometer 389H 07/20/17 21:17: Glucometer 527*H 07/21/17 05:29: Glucometer 230H 07/21/17 06:06: White Blood Count 11.9H, Red Blood Count 4.22L, Hemoglobin 12.6, Hematocrit 37, Mean Corpuscular Volume 88, Mean Corpuscular Hemoglobin 30, Mean Corpuscular Hemoglobin Concent 34, Red Cell Distribution Width 14.5, Platelet Count 192, Mean Platelet Volume 11.2H, Neutrophils (%) (Auto) 75, Lymphocytes (%) (Auto) 18 , Monocytes (%) (Auto) 5, Eosinophils (%) (Auto) 1, Basophils (%) (Auto) 1, Neutrophils # (Auto) 8.9H, Lymphocytes # (Auto) 2.2, Monocytes # (Auto) 0.6, Eosinophils # (Auto) 0.1, Basophils # (Auto) 0.1, Sodium Level 140, Potassium Level 3.7, Chloride Level 98, Carbon Dioxide Level 29, Anion Gap 13, Blood Urea Nitrogen 32H, Creatinine 0.98, Estimat Glomerular Filtration Rate 58, BUN/ Creatinine Ratio 33, Glucose Level 240H, Calcium Level 10.1, Magnesium Level 1.6L 07/21/17 11:00: Glucometer 379H Microbiology 07/14/17 Blood Culture - Final, Complete No growth 07/14/17 Gram Stain - Final, Complete 07/14/17 Sputum Culture - Final, Complete Streptococcus Pneumoniae Presumptive Chacho Albicans See Comments Radiology CTA Chest 07/14: IMPRESSION: 1. No evidence of acute pulmonary embolus. 2. Interval development of moderate scattered patchy and confluent alveolar infiltrates in the left lung. The appearance is suggestive of acute pneumonia. Followup after appropriate course of antibiotic therapy is recommended. 3. Mildly prominent right hilar lymph nodes; possibly reactive. However, metastatic process cannot be excluded given the patient's history of lung cancer. 4. Background of mild emphysematous disease. Assessment/Plan Assessment/Plan Plan Pneumonia- suspect possible pneumonia based on symptoms and CXR reported from clinic, will check blood cultures, sputum culture, CBC and lactic acid as well as CT chest to rule out PE or recurrent lung mass with history of lung cancer and new onset hypoxia -Azithromycin and ceftriaxone for CAP 07/15- CTA with no PE, findings consistent with pneumonia, continue azithromycin and ceftriaxone. Vitals and labs without evidence of sepsis on admission, but did have elevated lactic acid which is persistent 07/16- acute on chronic hypoxic hypercapneic respiratory failure, suspect combination of the pneumonia with now superimposed pulmonary edema, given 40 mg IV lasix overnight without much benefit, ABG this am with worsening acidosis and hypercapnea although slightly improved but still low oxygen on 100 FiO2, discussed with patient and she agreed to trial of bipap. She does not want to be seen by Dr. Ledezma, however, so we discussed that if she worsens and needs intubation, we may need to pursue transfer, and she would prefer [facility]. 07/17 Patient improved with bipap and 2 doses of 40 mg IV lasix in last 24 hours, now down to much lower oxygen requirement, continue to titrate bipap as tolerated. Consider repeat lasix today. 2/2 slowly improving, leukocytosis decreasing and no fever, so it does seem antibiotics are likely appropriately treating, but she is having slow improvement with her oxygenation, will give lasix 40 mg IV again today. 2/3 - afebrile, sputum culture positive for chacho albicans and strep pneumo; Day 6 Rocephin and will add diflucan for chacho. WBC 12.4; continues to have very slow improvement in oxygenation, will likely diurese again tomorrow 2/4 - afebrile, WBC trending down, Day 7 Rocephin, Day 2 Diflucan, slowly starting to wean down on her oxygen today; discussed with patient that we may need to consider discharge on home oxygen for a period of time once she is down to a few liters by NC, as it is anticipated that it will be several more days at a minimum before patient will be on room air. Will have to see how patient progresses, but if willing and able to go home on home O2, anticipate that she may be ready for discharge in 48-72 hours. Cardiology is present at the time of the conversation, and they agree the patient would likely benefit from discharge on NC when ready and weaning to room air after discharge as tolerated. 2/5 - Abx off today. will continue to work on getting the O2 down. evaluated for SWB but patient has only oxygen requirement and no skilled needs, so that is not an option. will see how she is tomorrow and go from there. Elevated lactic acid- does not meet other criteria for sepsis and lactic acid is stable between 2 and 4 without improvement after 30 ml/kg bolus, possibly due to PAYAM with metformin use at home, will monitor 07/21 - RESOLVED PAYAM- suspect due to hypovolemia, improved this am after fluids 07/16 continues to improve RESOLVED COPD exacerbation- consider COPD exacerbation versus pneumonia as noted above, RT protocol, supplemental oxygen as needed, solumedrol 07/15- change to prednisone taper, wean supplemental oxygen as tolerated 07/16- continue prednisone taper- respiratory support as above 07/21 - RESOLVED Influenza like illness- has had negative rapid testing x 2 in clinic, but given her underlying comorbidities and know exposure, concern persists for influenza, will treat empirically as she is hypoxic and requiring hospital admission 07/21 - HAS FINISHED TAMIFLU COURSE Chest pain- on breathing, suspect related to her coughing, however, with significant heart history will check EKG and troponin, improving, EKG and troponin unremarkable DMII- diabetic diet, resume home insulin- will start levemir at half dose as she was not taking consistently, holding metformin due to contrast and PAYAM 07/15- blood sugar high, increase to full home doses and monitor closely 07/19 - encouraged pt not to refuse insulin doses, as glucose control is important to help her improve and work towards discharge 07/20 - will change sugars to AC and HS, sugars have been 125 - 329 - 425 - 376 - 312- 212 - 118 - 101 07/21 - increase levemir to 40 units BID CAD- resume home meds, EKG, troponin as noted above HTN- hold home antihypertensives with borderline low BP 07/15 BP increasing, resumed home metoprolol and amlodipine, holding losartan with PAYAM 07/16- markedly elevated overnight requiring hydralazine and increased dose of metoprolol, started on cardizem drip this am per Cardiology due to A fib 07/17- BP improved, monitor 07/18 BP increased after d/c of diltiazem drip, resume home losartan now that renal function is improved 07/19 - mild HTN. Cardiology following. 07/20 - continues to have elevated blood pressure, per cardiology will increase Losartan to 100 mg PO daily 07/21 - slight improvemetn today Elevated LFTs- trending down today, suspect related to underlying infection, patient also notes being told by GI she has fatty liver 07/16- increased slightly again, likely due to congestive hepatitis, monitor 07/17 trending back down 07/20 - AST and ALT remain elevated but are trending down Atrial fibrillation- new onset 07/16 am, Cardiology consulted and started cardizem drip and enoxaparin, echocardiogram pending- per Cardiology she did have an EF of 45% about 3 years ago, troponin remains negative 07/17 Repeat echo with stable systolic dysfunction, d/c cardizem drip this am, but may need to restart if RVR persists with orals, discussed risks of stroke associated with a fib and likely need for mcc anticoagulation with patient today 07/18 started on Eliquis per Cardiology, oral metoprolol with increased dose and digoxin / paroxysmal afib managed per cards, on eliquis, metoprolol, digoxin, verapamil 07/20 - rate controlled, but when listening rate sound regular but review of telemetry demonstrates persistent atrial flutter. 07/21 - persistent atrial flutter, to be followed by Dr Gonzalez Constipation- continue docusate, try Miralax today 2/ Anxiety- on alprazolam 0.25 mg prn daily at home, will increase to BID prn for now given need for bipap, etc and increased anxiety DVT ppx- SCDs, eliquis Phenergan and codeine cough syrup PRN. Patient has improved from yesterday and is starting to wean down on her supplemental oxygen requirements. If she is willing and qualifies for home oxygen, patient may be ready for discharge in 48- 72 hours. Clinical Quality Measures DVT/VTE Risk/Contraindication: Risk Factor Score Per Nursin RFS Level Per Nursing on Admit: 3=High CODEY CHATMAN MD Jul 21, 2017 3:22 pm
[2017-07-21] MEDS: BENZONATATE 100 MG (TESSALON) CAPSULE PO PRN ×2 (16:24→22:47)
[2017-07-21] MEDS: MONTELUKAST 10 MG (SINGULAIR) TAB PO SCH (20:57)
[2017-07-21] MEDS: DOCUSATE SODIUM 100 MG (COLACE) CAP PO PRN (20:57)
[2017-07-21] MEDS: MUPIROCIN 2% OINT 22 GM (BACTROBAN) TUBE TOP SCH (20:58)
[2017-07-21] MEDS: guaiFENesin/DM (ROBITUSSIN DM) 10 ML UDC PO PRN (22:47)
[2017-07-22] VITALS (8 sets, daily range): BP systolic 118–164; BP diastolic 63–91
[2017-07-22] MEDS: PROMETHAZINE/ CODEINE SYRUP 5 ML UDC PO PRN ×2 (05:25→20:25)
[2017-07-22] MEDS: hydrALAZINE (APRESOLINE) 25 MG TAB PO SCH ×3 (05:25→21:09)
[2017-07-22] MEDS: BENZONATATE 100 MG (TESSALON) CAPSULE PO PRN ×2 (06:11→20:25)
[2017-07-22] MEDS: PANTOPRAZOLE 20 MG TABLET (PROTONIX) PO SCH (06:11)
[2017-07-22] MEDS: CATHETER FLUSH 10 ML SYR IV SCH ×3 (06:11→21:10)
[2017-07-22] MEDS: inSUlin (REGULAR) HUMAN 1 UNIT/0.01 ML (CHARGE PER UNIT) SC SCH ×4 (06:11→21:09)
[2017-07-22] MEDS: LEVOTHYROXINE 50 MCG (LEVOTHROID) TAB PO SCH (06:11)
[2017-07-22] MEDS: guaiFENesin/DM (ROBITUSSIN DM) 10 ML UDC PO PRN ×3 (06:11→21:10)
[2017-07-22] MEDS: RT-LEVALBUTEROL (XOPENEX) 1.25 MG/3 ML NEB NON-FORMULARY INH SCH ×3 (07:02→18:48)
[2017-07-22 07:11] LABS: BASOPHILS # (AUTO) 0.1 10^3/uL (0.0-0.1); BASOPHILS % (AUTO) 1 % (0-10); EOSINOPHILS # (AUTO) 0.2 10^3/uL (0.0-0.3); EOSINOPHILS % (AUTO) 2 % (0-10); HEMATOCRIT 36 % (35-52); HEMOGLOBIN 11.9 G/DL (11.5-16.0); LYMPHOCYTES # (AUTO) 2.2 X 10^3 (1.0-4.0); LYMPHOCYTES % (AUTO) 19 % (12-44); MEAN CORPUSCULAR HEMOGLOBIN 30 PG (25-34); MEAN CORPUSCULAR HGB CONC 33 G/DL (32-36); MEAN CORPUSCULAR VOLUME 89 FL (80-99); MEAN PLATELET VOLUME 10.9 FL (7.4-10.4); MONOCYTES # (AUTO) 0.7 X 10^3 (0.0-1.0); MONOCYTES % (AUTO) 6 % (0-12); NEUTROPHILS # (AUTO) 8.6 X 10^3 (1.8-7.8); NEUTROPHILS % (AUTO) 73 % (42-75); PLATELET COUNT 185 10^3/uL (130-400); RED BLOOD COUNT 4.02 10^6/uL (4.35-5.85); RED CELL DISTRIBUTION WIDTH 14.9 % (10.0-14.5); WHITE BLOOD COUNT 11.8 10^3/uL (4.3-11.0)
[2017-07-22 07:32] LABS: CALCIUM 10.7 MG/DL (8.5-10.1); CREATININE SERUM 1.02 MG/DL (0.60-1.30); MAGNESIUM 1.5 MG/DL (1.8-2.4); POTASSIUM 4.3 MMOL/L (3.6-5.0)
--- NOTE | 2017-07-22 08:19 | Cardiology Progress Note ---
Subjective Date Seen by Provider: Jul 22, 2017 Time Seen by Provider: 08:18 Subjective/Events-last exam Patient is in bed, no new complaint. States dyspnea continues to improve. Review of Systems General: No Night Sweats, Fatigue, Malaise HEENT: No Visual Changes, No Dysphasia, No Sore Throat Pulmonary: Dyspnea, No Cough Cardiovascular: No: Chest Pain, Palpitations, Paroxysmal Noc. Dyspnea, Edema Gastrointestinal: No: Nausea, Vomiting Genitourinary: No Dysuria, No Frequency Musculoskeletal: No: neck pain, back pain Neurological: No: Weakness, Numbness Objective-Cardiology Exam Last Set of Vital Signs Vital Signs 07/20/17 07/22/17 07/22/17 15:31 04:29 07:02 Temp 97.7 Pulse 77 Resp 20 B/P (MAP) 136/81 (99) Pulse Ox 93 O2 Delivery High Flow N/C O2 Flow Rate 3.00 FiO2 36 Capillary Refill : I&O Intake and Output 07/22/17 00:00 Intake Total 3750 ml Output Total 4250 ml Balance -500 ml Intake Oral 3750 ml Output Urine Total 4250 ml # Bowel Movements 1 General: Alert, Oriented X3, Cooperative, No Acute Distress HEENT: Atraumatic, EOMI, Mucous Memb Moist/[place] Neck: Supple, No Thyromegaly Lungs: Other (diminished in bases, but much improved from previous) Heart: Normal S1, Normal S2, No Murmurs, Other (regular rate on auscultation, however telemetry review demonstrates that patient remains in rate controlled atrial flutter) Abdomen: Normal Bowel Sounds, Soft, No Tenderness, No Masses Extremities: No Clubbing, No Tenderness/Swelling Skin: No Rashes, No Significant Lesion Neuro: Normal Speech, Normal Tone, Sensation Intact, Cranial Nerves 3-12 NL Psych/Mental Status: Mental Status NL, Mood NL Results Lab Laboratory Tests 07/22/17 06:20 A/P-Cardiology Admission Diagnosis Afib with RVR Pneumonia CAD CHF Assessment/Plan Paroxysmal atrial fibrillation, initially converted to sinus rhythm on Cardizem drip, now in atrial flutter, rate controlled. Currently on PO Lopressor, digoxin , Eliquis. Planning for electrical cardioversion tomorrow morning. Will make NPO after midnight. Elevated liver enzymes, persistent, simvastatin discontinued, numbers are improving. I will reevaluate in am Status post acute respiratory failure, better at this time. Continue to monitor Pneumonia, improving,continue antibiotics. Managed by primary care physician. Influenza like illness- currently afebrile. Continue supportive care. Coronary artery disease, history of CABG 4 done in 2011 using HADLEY to LAD, vein graft to OM1, OM 2, PDA. Had an abnormal stress test in 2013 involving the septum. Had been asymptomatic and was scheduled for stress test, however, has not had testing done yet. Planning for stress test as an outpatient. Congestive heart failure, acute on chronic left ventricular systolic dysfunction , ejection fraction 45 -50 percent, unchanged from previous 2D Echo. currently on beta blockers, ARB. Continue to monitor. Hyperlipidemia, monitored as outpatient. Statin discontinued secondary to elevated LFT's Diabetes mellitus. Managed and followed by primary care physician. 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 Mark. Followed by Dr. Casillas. Continue to monitor. Currently in remission History of pancreatitis. History of cholecystectomy, tonsillectomy, laparoscopic oophorectomy, stenting of the common bile duct. Nonobstructive carotid artery stenosis-history of radiation to the neck, increased risk of carotid injury, continue to monitor. Clinical Quality Measures DVT/VTE Risk/Contraindication: Risk Factor Score Per Nursin RFS Level Per Nursing on Admit: 3=High KAVON CROUCH Jul 22, 2017 08:19
[2017-07-22] MEDS: meTOprolol TARTRATE 50 MG (LOPRESSOR) TAB PO SCH ×2 (09:14→20:25)
[2017-07-22] MEDS: DIGOXIN 0.25 MG (LANOXIN) TAB PO SCH (09:14)
[2017-07-22] MEDS: LOSARTAN 100 MG (COZAAR) TABLET PO SCH (09:14)
[2017-07-22] MEDS: OMEGA 3 (FISH OIL) 1000 MG CAP PO SCH ×2 (09:14→20:25)
[2017-07-22] MEDS: ASPIRIN E.C. 81 MG (ECOTRIN) TAB PO SCH (09:14)
[2017-07-22] MEDS: APIXABAN 5 MG (ELIQUIS) TABLET PO SCH ×2 (09:14→20:25)
[2017-07-22] MEDS: fluCOnazole (DIFLUCAN) 100 MG TAB PO SCH (09:14)
[2017-07-22] MEDS: MUPIROCIN 2% OINT 22 GM (BACTROBAN) TUBE TOP SCH ×2 (09:15→20:27)
[2017-07-22] MEDS: inSUlin DETERMIR 1 UNIT/0.01 ML (LEVEMIR) CHARGE PER UNIT SQ SCH ×2 (09:15→21:09)
[2017-07-22] MEDS: NICOTINE 21 MG (NICODERM) PATCH TD SCH (09:15)
[2017-07-22] MEDS: NICOTINE PATCH REMOVAL TP SCH (09:15)
--- NOTE | 2017-07-22 10:48 | Cardiology Progress Note ---
Subjective Date Seen by Provider: Jul 22, 2017 Time Seen by Provider: 10:47 Subjective/Events-last exam Patient is laying down in bed, denied any chest pain. Denied any palpitation. Still in atrial flutter with controlled rate Review of Systems General: No Chills, No Night Sweats, No Fatigue, No Malaise, No Appetite, No Other HEENT: No Head Aches, No Visual Changes, No Eye Pain, No Ear Pain, No Dysphasia , No Sinus Congestion, No Post Nasal Drip, No Sore Throat, No Other Pulmonary: Dyspnea, No Cough, No Pleuritic Chest Pain, No Other Cardiovascular: No: Chest Pain, Palpitations, Orthopnea, Paroxysmal Noc. Dyspnea, Edema, Lt Headedness, Other Objective-Cardiology Exam Last Set of Vital Signs Vital Signs 07/20/17 07/22/17 07/22/17 15:31 08:00 09:00 Temp 97.4 Pulse 85 Resp 20 B/P (MAP) 130/75 (93) Pulse Ox 96 O2 Delivery Nasal Cannula O2 Flow Rate 3.00 FiO2 36 Capillary Refill : I&O Intake and Output 07/22/17 00:00 Intake Total 3750 ml Output Total 4250 ml Balance -500 ml Intake Oral 3750 ml Output Urine Total 4250 ml # Bowel Movements 1 General: Alert, Oriented X3, Cooperative, No Acute Distress HEENT: Atraumatic, EOMI, Mucous Memb Moist/[place] Neck: Supple, No Thyromegaly Lungs: Other (diminished in bases, but much improved from previous) Heart: Normal S1, Normal S2, No Murmurs, Other (regular rate on auscultation, however telemetry review demonstrates that patient remains in rate controlled atrial flutter) Abdomen: Normal Bowel Sounds, Soft, No Tenderness, No Masses Extremities: No Clubbing, No Tenderness/Swelling Skin: No Rashes, No Significant Lesion Neuro: Normal Speech, Normal Tone, Sensation Intact, Cranial Nerves 3-12 NL Psych/Mental Status: Mental Status NL, Mood NL Results Lab Laboratory Tests 07/22/17 06:20 A/P-Cardiology Admission Diagnosis Afib with RVR Pneumonia CAD CHF Assessment/Plan Paroxysmal atrial fibrillation, initially converted to sinus rhythm on Cardizem drip, now in atrial flutter, rate controlled. Currently on PO Lopressor, digoxin , Eliquis. Planning for electrical cardioversion tomorrow morning. Will make NPO after midnight. Elevated liver enzymes, persistent, simvastatin discontinued, numbers are improving. I will reevaluate in am Hypomagnesemia, replace and monitor Status post acute respiratory failure, better at this time. Continue to monitor Pneumonia, improving,continue antibiotics. Managed by primary care physician. Influenza like illness- currently afebrile. Continue supportive care. Coronary artery disease, history of CABG 4 done in 2011 using HADLEY to LAD, vein graft to OM1, OM 2, PDA. Had an abnormal stress test in 2013 involving the septum. Had been asymptomatic and was scheduled for stress test, however, has not had testing done yet. Planning for stress test as an outpatient. Congestive heart failure, acute on chronic left ventricular systolic dysfunction , ejection fraction 45 -50 percent, unchanged from previous 2D Echo. currently on beta blockers, ARB. Continue to monitor. Hyperlipidemia, monitored as outpatient. Statin discontinued secondary to elevated LFT's Diabetes mellitus. Managed and followed by primary care physician. 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 Mark. Followed by Dr. Casillas. Continue to monitor. Currently in remission History of pancreatitis. History of cholecystectomy, tonsillectomy, laparoscopic oophorectomy, stenting of the common bile duct. Nonobstructive carotid artery stenosis-history of radiation to the neck, increased risk of carotid injury, continue to monitor. Clinical Quality Measures DVT/VTE Risk/Contraindication: Risk Factor Score Per Nursin RFS Level Per Nursing on Admit: 3=High KYLIE TAYLOR MD Jul 22, 2017 10:48
[2017-07-22] MEDS: MAGNESIUM 1 GM/100 ML IVPB 100 ML IV SCH ×2 (11:01→12:06)
--- NOTE | 2017-07-22 11:18 | Physical Therapy Daily Note ---
PT Daily Note-Current Subjective Patient is very agreeable to participate with PT. Pain Numeric Pain Scale: 0-No Pain Location: No Pain Reported Mental Status Patient Orientation: Normal For Age Attachments: Oxygen Transfers Functional [place] Measure 0=Not Assessed/NA 4=Minimal Assistance 1=Total Assistance 5=Supervision or Setup 2=Maximal Assistance 6=Modified [place] 3=Moderate Assistance 7=Complete IndependenceIRFPAI Quality Coding Scale 6 Independent with activity with or without an assistive device 5 Patient requires set up or clean up by helper. Patient completes activity by themselves 4 Supervision or touching assist (CGA). [place] provide cues , steadying assist 3 The helper provides less than half the effort to complete the activity 2 The helper provides more than half the effort to complete the activity 1 Dependent. The helper does all the effort to complete an activity 7 Patient refused to complete or attempt activity 9 The patient did not perform the activity before the current illness or injury 88 Not attempted due to Medical conditions or safety concerns Transfers (B, C, W/C) (FIM): 7 Scootin Rollin Supine to/from Sit: 7 Sit to/from Stand: 7 Weight Bearing Right Lower Extremity: Right Full Weight Bearing Left Lower Extremity: Left Full Weight Bearing Gait Training Gait (FIM): 6 Distance (FIM): 3=150 ft Distance: 500' Gait Level of Assist: 6 Gait Assistive Device: FWW assist for O2 tank 3L Assessment Patient encouraged to be up ad ede in room and to increase activity. PT Short Term Goals Short Term Goals Time Frame: Jul 25, 2017 Transfers (B,C,W/C) (FIM): 7 Gait (FIM): 7 Distance (FIM): 3=150 ft Gait Level of Assist: 7 Gait Assistive Device: None PT Plan Treatment/Plan Treatment Plan: Continue Plan of Care Treatment Plan: Education, Functional Activity Roberto, Functional Strength, Gait , Therapeutic Exercise Treatment Duration: Jul 25, 2017 Frequency: 5 times per week Estimated Hrs Per Day: .25 hour per day Patient and/or Family Agrees t: Yes Time/GCodes Time In: 1041 Time Out: 1049 Total Billed Treatment Time: 8 Total Billed Treatment 1 visit FA 8 min JOSSIE WEAVER PT Jul 22, 2017 11:17
--- NOTE | 2017-07-22 11:44 | Progress Note (SOAP) ---
MEGHANA WILSON MED STUDENT 07/22/17 11:44am: Subjective Subjective/Events-last exam Patient is feeling well. She has been notified that she is in Atrial flutter and that she is scheduled for cardioversion in the morning. She expressed concern over the procedure. She was provided with reassurance that this was the best next step in her management. Patient verbalized understanding. She states that she developed a worsening cough overnight, but isn't concerned about it. Denies any change in bowel movements, denies difficulty with urination, denies SOB. She has no other questions or concerns. Review of Systems Date Seen by Provider: Jul 22, 2017 Time Seen by Provider: 10:15 General: No Fatigue HEENT: No Head Aches Pulmonary: Cough Cardiovascular: No: Chest Pain Gastrointestinal: No: Nausea, Vomiting, Abdominal Pain, Diarrhea, Constipation Genitourinary: No Dysuria, No Frequency Neurological: No: Weakness Objective Exam Last Set of Vital Signs Vital Signs Date Time Temp Pulse Resp B/P (MAP) Pulse Ox O2 Delivery O2 Flow Rate FiO2 07/22/17 09:00 96 Nasal Cannula 3.00 07/22/17 08:00 97.4 85 20 130/75 (93) 07/20/17 15:31 36 Capillary Refill : I&O Intake and Output 07/22/17 00:00 Intake Total 3750 ml Output Total 4250 ml Balance -500 ml Intake Oral 3750 ml Output Urine Total 4250 ml # Bowel Movements 1 General: Alert, Oriented X3, No Acute Distress HEENT: Atraumatic Neck: Supple Lungs: Normal Air Movement Heart: Regular Rate, No Murmurs Abdomen: Normal Bowel Sounds, Soft, No Masses Extremities: No Clubbing, No Cyanosis, No Edema Skin: No Rashes, No Breakdown Neuro: Normal Speech Psych/Mental Status: Mental Status NL, Mood NL Results/Procedures Lab Laboratory Tests 07/21/17 15:50: Glucometer 403*H 07/21/17 20:39: Glucometer 464*H 07/22/17 05:52: Glucometer 250H 07/22/17 06:20: White Blood Count 11.8H, Red Blood Count 4.02L, Hemoglobin 11.9, Hematocrit 36, Mean Corpuscular Volume 89, Mean Corpuscular Hemoglobin 30, Mean Corpuscular Hemoglobin Concent 33, Red Cell Distribution Width 14.9H, Platelet Count 185, Mean Platelet Volume 10.9H, Neutrophils (%) (Auto) 73, Lymphocytes (%) (Auto) 19 , Monocytes (%) (Auto) 6, Eosinophils (%) (Auto) 2, Basophils (%) (Auto) 1, Neutrophils # (Auto) 8.6H, Lymphocytes # (Auto) 2.2, Monocytes # (Auto) 0.7, Eosinophils # (Auto) 0.2, Basophils # (Auto) 0.1, Sodium Level 137, Potassium Level 4.3, Chloride Level 101, Carbon Dioxide Level 26, Anion Gap 10, Blood Urea Nitrogen 36H, Creatinine 1.02, Estimat Glomerular Filtration Rate 56, BUN/ Creatinine Ratio 35, Glucose Level 264H, Calcium Level 10.7H, Magnesium Level 1.5L 07/22/17 11:06: Glucometer 376H Microbiology 07/14/17 Blood Culture - Final, Complete No growth 07/14/17 Gram Stain - Final, Complete 07/14/17 Sputum Culture - Final, Complete Streptococcus Pneumoniae Presumptive Chacho Albicans See Comments Radiology CTA Chest 07/14: IMPRESSION: 1. No evidence of acute pulmonary embolus. 2. Interval development of moderate scattered patchy and confluent alveolar infiltrates in the left lung. The appearance is suggestive of acute pneumonia. Followup after appropriate course of antibiotic therapy is recommended. 3. Mildly prominent right hilar lymph nodes; possibly reactive. However, metastatic process cannot be excluded given the patient's history of lung cancer. 4. Background of mild emphysematous disease. Assessment/Plan Assessment/Plan Plan Pneumonia- suspect possible pneumonia based on symptoms and CXR reported from clinic, will check blood cultures, sputum culture, CBC and lactic acid as well as CT chest to rule out PE or recurrent lung mass with history of lung cancer and new onset hypoxia -Azithromycin and ceftriaxone for CAP 07/15- CTA with no PE, findings consistent with pneumonia, continue azithromycin and ceftriaxone. Vitals and labs without evidence of sepsis on admission, but did have elevated lactic acid which is persistent 07/16- acute on chronic hypoxic hypercapneic respiratory failure, suspect combination of the pneumonia with now superimposed pulmonary edema, given 40 mg IV lasix overnight without much benefit, ABG this am with worsening acidosis and hypercapnea although slightly improved but still low oxygen on 100 FiO2, discussed with patient and she agreed to trial of bipap. She does not want to be seen by Dr. Ledezma, however, so we discussed that if she worsens and needs intubation, we may need to pursue transfer, and she would prefer [place]. 2/ Patient improved with bipap and 2 doses of 40 mg IV lasix in last 24 hours, now down to much lower oxygen requirement, continue to titrate bipap as tolerated. Consider repeat lasix today. 2/2 slowly improving, leukocytosis decreasing and no fever, so it does seem antibiotics are likely appropriately treating, but she is having slow improvement with her oxygenation, will give lasix 40 mg IV again today. 2/3 - afebrile, sputum culture positive for chacho albicans and strep pneumo; Day 6 Rocephin and will add diflucan for chacho. WBC 12.4; continues to have very slow improvement in oxygenation, will likely diurese again tomorrow 2/4 - afebrile, WBC trending down, Day 7 Rocephin, Day 2 Diflucan, slowly starting to wean down on her oxygen today; discussed with patient that we may need to consider discharge on home oxygen for a period of time once she is down to a few liters by NC, as it is anticipated that it will be several more days at a minimum before patient will be on room air. Will have to see how patient progresses, but if willing and able to go home on home O2, anticipate that she may be ready for discharge in 48-72 hours. Cardiology is present at the time of the conversation, and they agree the patient would likely benefit from discharge on NC when ready and weaning to room air after discharge as tolerated. Elevated lactic acid- does not meet other criteria for sepsis and lactic acid is stable between 2 and 4 without improvement after 30 ml/kg bolus, possibly due to PAYAM with metformin use at home, will monitor PAYAM- suspect due to hypovolemia, improved this am after fluids 07/16 continues to improve RESOLVED COPD exacerbation- consider COPD exacerbation versus pneumonia as noted above, RT protocol, supplemental oxygen as needed, solumedrol 07/15- change to prednisone taper, wean supplemental oxygen as tolerated 07/16- continue prednisone taper- respiratory support as above Influenza like illness- has had negative rapid testing x 2 in clinic, but given her underlying comorbidities and know exposure, concern persists for influenza, will treat empirically as she is hypoxic and requiring hospital admission Chest pain- on breathing, suspect related to her coughing, however, with significant heart history will check EKG and troponin, improving, EKG and troponin unremarkable DMII- diabetic diet, resume home insulin- will start levemir at half dose as she was not taking consistently, holding metformin due to contrast and PAYAM 07/15- blood sugar high, increase to full home doses and monitor closely 2/3 - encouraged pt not to refuse insulin doses, as glucose control is important to help her improve and work towards discharge 07/20 - will change sugars to AC and HS, sugars have been 125 - 329 - 425 - 376 - 312- 212 - 118 - 101 CAD- resume home meds, EKG, troponin as noted above HTN- hold home antihypertensives with borderline low BP 07/15 BP increasing, resumed home metoprolol and amlodipine, holding losartan with PAYAM 07/16- markedly elevated overnight requiring hydralazine and increased dose of metoprolol, started on cardizem drip this am per Cardiology due to A fib 07/17- BP improved, monitor 07/18 BP increased after d/c of diltiazem drip, resume home losartan now that renal function is improved 2/3 - mild HTN. Cardiology following. 07/20 - continues to have elevated blood pressure, per cardiology will increase Losartan to 100 mg PO daily Elevated LFTs- trending down today, suspect related to underlying infection, patient also notes being told by GI she has fatty liver 07/16- increased slightly again, likely due to congestive hepatitis, monitor 07/17 trending back down 07/20 - AST and ALT remain elevated but are trending down Atrial fibrillation- new onset 07/16 am, Cardiology consulted and started cardizem drip and enoxaparin, echocardiogram pending- per Cardiology she did have an EF of 45% about 3 years ago, troponin remains negative 07/17 Repeat echo with stable systolic dysfunction, d/c cardizem drip this am, but may need to restart if RVR persists with orals, discussed risks of stroke associated with a fib and likely need for senior living anticoagulation with patient today 07/18 started on Eliquis per Cardiology, oral metoprolol with increased dose and digoxin /3 paroxysmal afib managed per cards, on eliquis, metoprolol, digoxin, verapamil 07/20 - rate controlled, but when listening rate sound regular but review of telemetry demonstrates persistent atrial flutter. Constipation- continue docusate, try Miralax today 2/2 Anxiety- on alprazolam 0.25 mg prn daily at home, will increase to BID prn for now given need for bipap, etc and increased anxiety DVT ppx- SCDs, eliquis Phenergan and codeine cough syrup PRN. Patient has improved from yesterday and is starting to wean down on her supplemental oxygen requirements. If she is willing and qualifies for home oxygen, patient may be ready for discharge in 48- 72 hours. Clinical Quality Measures DVT/VTE Risk/Contraindication: Risk Factor Score Per Nursin RFS Level Per Nursing on Admit: 3=High CODEY CHATMAN MD 07/22/17 2:50pm: Supervisory-Addendum Brief Supervisory Addendum I personally have seen and evaluated the patient and performed the physical exam. I agree with the documented assessment and plan. Plan Pneumonia- suspect possible pneumonia based on symptoms and CXR reported from clinic, will check blood cultures, sputum culture, CBC and lactic acid as well as CT chest to rule out PE or recurrent lung mass with history of lung cancer and new onset hypoxia -Azithromycin and ceftriaxone for CAP 07/15- CTA with no PE, findings consistent with pneumonia, continue azithromycin and ceftriaxone. Vitals and labs without evidence of sepsis on admission, but did have elevated lactic acid which is persistent 07/16- acute on chronic hypoxic hypercapneic respiratory failure, suspect combination of the pneumonia with now superimposed pulmonary edema, given 40 mg IV lasix overnight without much benefit, ABG this am with worsening acidosis and hypercapnea although slightly improved but still low oxygen on 100 FiO2, discussed with patient and she agreed to trial of bipap. She does not want to be seen by Dr. Ledezma, however, so we discussed that if she worsens and needs intubation, we may need to pursue transfer, and she would prefer [place]. 2/ Patient improved with bipap and 2 doses of 40 mg IV lasix in last 24 hours, now down to much lower oxygen requirement, continue to titrate bipap as tolerated. Consider repeat lasix today. 2/2 slowly improving, leukocytosis decreasing and no fever, so it does seem antibiotics are likely appropriately treating, but she is having slow improvement with her oxygenation, will give lasix 40 mg IV again today. 2/3 - afebrile, sputum culture positive for chacho albicans and strep pneumo; Day 6 Rocephin and will add diflucan for chacho. WBC 12.4; continues to have very slow improvement in oxygenation, will likely diurese again tomorrow 2/4 - afebrile, WBC trending down, Day 7 Rocephin, Day 2 Diflucan, slowly starting to wean down on her oxygen today; discussed with patient that we may need to consider discharge on home oxygen for a period of time once she is down to a few liters by NC, as it is anticipated that it will be several more days at a minimum before patient will be on room air. Will have to see how patient progresses, but if willing and able to go home on home O2, anticipate that she may be ready for discharge in 48-72 hours. Cardiology is present at the time of the conversation, and they agree the patient would likely benefit from discharge on NC when ready and weaning to room air after discharge as tolerated. 2 - Abx off today. will continue to work on getting the O2 down. evaluated for SWB but patient has only oxygen requirement and no skilled needs, so that is not an option. will see how she is tomorrow and go from there. 2 - still requiriing some O2. likely to require it at home. will arrange for home O2 once pt stable for DC. Elevated lactic acid- does not meet other criteria for sepsis and lactic acid is stable between 2 and 4 without improvement after 30 ml/kg bolus, possibly due to PAYAM with metformin use at home, will monitor 07/21 - RESOLVED PAYAM- suspect due to hypovolemia, improved this am after fluids 07/16 continues to improve RESOLVED COPD exacerbation- consider COPD exacerbation versus pneumonia as noted above, RT protocol, supplemental oxygen as needed, solumedrol 07/15- change to prednisone taper, wean supplemental oxygen as tolerated 07/16- continue prednisone taper- respiratory support as above 07/21 - RESOLVED Influenza like illness- has had negative rapid testing x 2 in clinic, but given her underlying comorbidities and know exposure, concern persists for influenza, will treat empirically as she is hypoxic and requiring hospital admission 07/21 - HAS FINISHED TAMIFLU COURSE Chest pain- on breathing, suspect related to her coughing, however, with significant heart history will check EKG and troponin, improving, EKG and troponin unremarkable DMII- diabetic diet, resume home insulin- will start levemir at half dose as she was not taking consistently, holding metformin due to contrast and PAYAM 07/15- blood sugar high, increase to full home doses and monitor closely 07/19 - encouraged pt not to refuse insulin doses, as glucose control is important to help her improve and work towards discharge 07/20 - will change sugars to AC and HS, sugars have been 125 - 329 - 425 - 376 - 312- 212 - 118 - 101 07/21 - increase levemir to 40 units BID 07/22 - BS much improved today CAD- resume home meds, EKG, troponin as noted above HTN- hold home antihypertensives with borderline low BP 07/15 BP increasing, resumed home metoprolol and amlodipine, holding losartan with PAYAM 07/16- markedly elevated overnight requiring hydralazine and increased dose of metoprolol, started on cardizem drip this am per Cardiology due to A fib 07/17- BP improved, monitor 07/18 BP increased after d/c of diltiazem drip, resume home losartan now that renal function is improved 07/19 - mild HTN. Cardiology following. 07/20 - continues to have elevated blood pressure, per cardiology will increase Losartan to 100 mg PO daily 07/21 - slight improvemetn today Elevated LFTs- trending down today, suspect related to underlying infection, patient also notes being told by GI she has fatty liver 07/16- increased slightly again, likely due to congestive hepatitis, monitor 07/17 trending back down 07/20 - AST and ALT remain elevated but are trending down 07/22 - labs tomorrow Atrial fibrillation- new onset 07/16 am, Cardiology consulted and started cardizem drip and enoxaparin, echocardiogram pending- per Cardiology she did have an EF of 45% about 3 years ago, troponin remains negative 07/17 Repeat echo with stable systolic dysfunction, d/c cardizem drip this am, but may need to restart if RVR persists with orals, discussed risks of stroke associated with a fib and 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 07/21 - persistent atrial flutter, to be followed by Dr Gonzalez 07/22 - plan for DC cardioversion tomorrow morning Constipation- continue docusate, try Miralax today 07/18 Anxiety- on alprazolam 0.25 mg prn daily at home, will increase to BID prn for now given need for bipap, etc and increased anxiety DVT ppx- SCDs, eliquis Phenergan and codeine cough syrup PRN. Patient has improved from yesterday and is starting to wean down on her supplemental oxygen requirements. If she is willing and qualifies for home oxygen, patient may be ready for discharge in 48- 72 hours. MEGHANA WILSON MED STUDENT Jul 22, 2017 11:44 am CODEY CHATMAN MD Jul 22, 2017 2:50 pm
[2017-07-22] MEDS: MAGNESIUM OXIDE (MAG-OX)400 MG TAB PO SCH (17:55)
[2017-07-22] MEDS: DOCUSATE SODIUM 100 MG (COLACE) CAP PO PRN (20:25)
[2017-07-22] MEDS: MONTELUKAST 10 MG (SINGULAIR) TAB PO SCH (20:25)
[2017-07-22] MEDS: ALPRAZolam 0.25 MG (XANAX) TAB PO PRN (21:09)
[2017-07-23] VITALS (14 sets, daily range): BP systolic 83–170; BP diastolic 56–88
[2017-07-23] MEDS: LEVOTHYROXINE 50 MCG (LEVOTHROID) TAB PO SCH (06:34)
[2017-07-23] MEDS: CATHETER FLUSH 10 ML SYR IV SCH ×3 (06:34→21:06)
[2017-07-23] MEDS: hydrALAZINE (APRESOLINE) 25 MG TAB PO SCH ×3 (06:34→21:07)
[2017-07-23] MEDS: inSUlin (REGULAR) HUMAN 1 UNIT/0.01 ML (CHARGE PER UNIT) SC SCH ×4 (06:36→21:06)
[2017-07-23 06:55] LABS: BASOPHILS % (AUTO) 0 % (0-10); EOSINOPHILS # (AUTO) 0.2 10^3/uL (0.0-0.3); EOSINOPHILS % (AUTO) 2 % (0-10); HEMATOCRIT 36 % (35-52); HEMOGLOBIN 11.7 G/DL (11.5-16.0); LYMPHOCYTES # (AUTO) 1.6 X 10^3 (1.0-4.0); LYMPHOCYTES % (AUTO) 14 % (12-44); MEAN CORPUSCULAR HEMOGLOBIN 30 PG (25-34); MEAN CORPUSCULAR HGB CONC 33 G/DL (32-36); MEAN CORPUSCULAR VOLUME 90 FL (80-99); MEAN PLATELET VOLUME 10.7 FL (7.4-10.4); MONOCYTES # (AUTO) 0.4 X 10^3 (0.0-1.0); MONOCYTES % (AUTO) 4 % (0-12); NEUTROPHILS # (AUTO) 8.7 X 10^3 (1.8-7.8); NEUTROPHILS % (AUTO) 79 % (42-75); PLATELET COUNT 191 10^3/uL (130-400); RED BLOOD COUNT 3.96 10^6/uL (4.35-5.85); RED CELL DISTRIBUTION WIDTH 14.9 % (10.0-14.5)
[2017-07-23 07:15] LABS: ALBUMIN 3.5 GM/DL (3.2-4.5); BILIRUBIN,DIRECT 0.2 MG/DL (0.0-0.3); BILIRUBIN,INDIRECT 0.3 MG/DL; BILIRUBIN,TOTAL 0.5 MG/DL (0.1-1.0); CALCIUM 9.9 MG/DL (8.5-10.1); CREATININE SERUM 1.06 MG/DL (0.60-1.30); MAGNESIUM 1.6 MG/DL (1.8-2.4); POTASSIUM 4.4 MMOL/L (3.6-5.0); TOTAL PROTEIN 6.2 GM/DL (6.4-8.2)
[2017-07-23] MEDS: RT-LEVALBUTEROL (XOPENEX) 1.25 MG/3 ML NEB NON-FORMULARY INH SCH ×3 (08:00→22:07)
[2017-07-23] MEDS: NICOTINE 21 MG (NICODERM) PATCH TD SCH (08:05)
[2017-07-23] MEDS: DIGOXIN 0.25 MG (LANOXIN) TAB PO SCH (08:06)
[2017-07-23] MEDS: NICOTINE PATCH REMOVAL TP SCH (08:06)
[2017-07-23] MEDS: LOSARTAN 100 MG (COZAAR) TABLET PO SCH (08:06)
[2017-07-23] MEDS: APIXABAN 5 MG (ELIQUIS) TABLET PO SCH ×2 (08:06→20:22)
[2017-07-23] MEDS: meTOprolol TARTRATE 50 MG (LOPRESSOR) TAB PO SCH ×2 (08:06→20:21)
--- NOTE | 2017-07-23 08:48 | Cardiology Progress Note ---
Subjective Date Seen by Provider: Jul 23, 2017 Time Seen by Provider: 08:46 Subjective/Events-last exam Patient sitting up in bed. No new complaints. Continues to be in atrial flutter. Planning for cardioversion later this morning. Denies any CP or increased dyspnea. Objective-Cardiology Exam Last Set of Vital Signs Vital Signs 07/20/17 15:31 FiO2 36 Capillary Refill : I&O Intake and Output 07/23/17 00:00 Intake Total 3840 ml Output Total 5000 ml Balance -1160 ml Intake Oral 3640 ml IV Total 200 ml Output Urine Total 5000 ml # Bowel Movements 1 General: Alert, Oriented X3, Cooperative, No Acute Distress HEENT: Atraumatic Neck: Supple Lungs: Clear to Auscultation, Normal Air Movement Heart: Regular Rate, Normal S1, Normal S2, No Murmurs, Gallops, Rubs Abdomen: Normal Bowel Sounds, Soft, No Tenderness, No Hepatosplenomegaly, No Masses Extremities: No Clubbing, No Cyanosis, No Edema Skin: No Rashes, No Breakdown Neuro: Normal Speech Psych/Mental Status: Mental Status NL, Mood NL Results Lab Laboratory Tests 07/23/17 06:21 A/P-Cardiology Admission Diagnosis Afib with RVR Pneumonia CAD CHF Assessment/Plan Paroxysmal atrial fibrillation, initially converted to sinus rhythm on Cardizem drip, now in atrial flutter, rate controlled. Currently on PO Lopressor, digoxin , Eliquis. Planning for electrical cardioversion this morning. Elevated liver enzymes, persistent, simvastatin discontinued, numbers are improving. Continue to monitor. Hypomagnesemia, replace and monitor Status post acute respiratory failure, better at this time. Continue to monitor Pneumonia, improving,continue antibiotics. Managed by primary care physician. Influenza like illness- currently afebrile. Continue supportive care. Coronary artery disease, history of CABG 4 done in 2011 using HADLEY to LAD, vein graft to OM1, OM 2, PDA. Had an abnormal stress test in 2013 involving the septum. Had been asymptomatic and was scheduled for stress test, however, has not had testing done yet. Planning for stress test as an outpatient. Congestive heart failure, acute on chronic left ventricular systolic dysfunction , ejection fraction 45 -50 percent, unchanged from previous 2D Echo. currently on beta blockers, ARB. Continue to monitor. Hyperlipidemia, monitored as outpatient. Statin discontinued secondary to elevated LFT's Diabetes mellitus. Managed and followed by primary care physician. 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 Mark. Followed by Dr. Casillas. Continue to monitor. Currently in remission History of pancreatitis. History of cholecystectomy, tonsillectomy, laparoscopic oophorectomy, stenting of the common bile duct. Nonobstructive carotid artery stenosis-history of radiation to the neck, increased risk of carotid injury, continue to monitor. Clinical Quality Measures DVT/VTE Risk/Contraindication: Risk Factor Score Per Nursin RFS Level Per Nursing on Admit: 3=High KAVON CROUCH Jul 23, 2017 08:48
[2017-07-23] MEDS ORDERED: MAGNESIUM 1 GM/100 ML IVPB 100 ML IV ONE (09:00)
[2017-07-23] MEDS: PANTOPRAZOLE 20 MG TABLET (PROTONIX) PO SCH (10:44)
--- NOTE | 2017-07-23 10:46 | Progress Note (SOAP) ---
MEGHANA WILSON MED STUDENT 07/23/17 1046: Subjective Subjective/Events-last exam Patient is feeling well today. She states that she would like to go home after her cardioversion. She was told that it would be up to cardiology on when she would be able to go home. Patient voiced understanding. She states that she still is coughing up flem but is not concerned about it. She denies any change in bowel patterns and denies difficulty with urination. She had no other questions or concerns. Review of Systems Date Seen by Provider: Jul 23, 2017 Time Seen by Provider: 09:30 General: No Chills, No Night Sweats HEENT: No Head Aches, No Visual Changes Pulmonary: Cough Cardiovascular: No: Chest Pain Gastrointestinal: No: Nausea, Abdominal Pain, Diarrhea, Constipation Genitourinary: No Dysuria, No Frequency Neurological: No: Weakness Objective Exam Last Set of Vital Signs Vital Signs Date Time Temp Pulse Resp B/P (MAP) Pulse Ox O2 Delivery O2 Flow Rate FiO2 07/23/17 08:55 96 Nasal Cannula 3.00 07/23/17 08:00 97.9 82 20 170/75 (106) 07/20/17 15:31 36 Capillary Refill : I&O Intake and Output 07/23/17 00:00 Intake Total 3840 ml Output Total 5000 ml Balance -1160 ml Intake Oral 3640 ml IV Total 200 ml Output Urine Total 5000 ml # Bowel Movements 1 General: Alert, Oriented X3, No Acute Distress HEENT: Atraumatic Neck: Supple, No LAD Lungs: Other (Mild wheezes throughout) Heart: Regular Rate, No Murmurs Abdomen: Normal Bowel Sounds, Soft, No Tenderness Extremities: No Clubbing, No Cyanosis, No Edema, No Tenderness/Swelling Skin: No Rashes, No Breakdown Neuro: Normal Speech Psych/Mental Status: Mental Status NL, Mood NL Results/Procedures Lab Laboratory Tests 07/22/17 11:06: Glucometer 376H 07/22/17 16:01: Glucometer 354H 07/22/17 20:38: Glucometer 331H 07/23/17 06:21: White Blood Count 11.0, Red Blood Count 3.96L, Hemoglobin 11.7, Hematocrit 36, Mean Corpuscular Volume 90, Mean Corpuscular Hemoglobin 30, Mean Corpuscular Hemoglobin Concent 33, Red Cell Distribution Width 14.9H, Platelet Count 191, Mean Platelet Volume 10.7H, Neutrophils (%) (Auto) 79H, Lymphocytes (%) (Auto) 14, Monocytes (%) (Auto) 4, Eosinophils (%) (Auto) 2, Basophils (%) (Auto) 0, Neutrophils # (Auto) 8.7H, Lymphocytes # (Auto) 1.6, Monocytes # (Auto) 0.4, Eosinophils # (Auto) 0.2, Basophils # (Auto) 0.0, Sodium Level 142, Potassium Level 4.4, Chloride Level 105, Carbon Dioxide Level 26, Anion Gap 11, Blood Urea Nitrogen 28H, Creatinine 1.06, Estimat Glomerular Filtration Rate 53, BUN/ Creatinine Ratio 26, Glucose Level 183H, Calcium Level 9.9, Magnesium Level 1.6L , Total Bilirubin 0.5, Direct Bilirubin 0.2, Indirect Bilirubin 0.3, Aspartate Amino Transf (AST/SGOT) 79H, Alanine Aminotransferase (ALT/SGPT) 146H, Alkaline Phosphatase 60, Total Protein 6.2L, Albumin 3.5 07/23/17 06:32: Glucometer 196H Microbiology 07/14/17 Blood Culture - Final, Complete No growth 07/14/17 Gram Stain - Final, Complete 07/14/17 Sputum Culture - Final, Complete Streptococcus Pneumoniae Presumptive Chacho Albicans See Comments Radiology CTA Chest 07/14: IMPRESSION: 1. No evidence of acute pulmonary embolus. 2. Interval development of moderate scattered patchy and confluent alveolar infiltrates in the left lung. The appearance is suggestive of acute pneumonia. Followup after appropriate course of antibiotic therapy is recommended. 3. Mildly prominent right hilar lymph nodes; possibly reactive. However, metastatic process cannot be excluded given the patient's history of lung cancer. 4. Background of mild emphysematous disease. Assessment/Plan Assessment/Plan Plan Pneumonia- suspect possible pneumonia based on symptoms and CXR reported from clinic, will check blood cultures, sputum culture, CBC and lactic acid as well as CT chest to rule out PE or recurrent lung mass with history of lung cancer and new onset hypoxia -Azithromycin and ceftriaxone for CAP 07/15- CTA with no PE, findings consistent with pneumonia, continue azithromycin and ceftriaxone. Vitals and labs without evidence of sepsis on admission, but did have elevated lactic acid which is persistent 07/16- acute on chronic hypoxic hypercapneic respiratory failure, suspect combination of the pneumonia with now superimposed pulmonary edema, given 40 mg IV lasix overnight without much benefit, ABG this am with worsening acidosis and hypercapnea although slightly improved but still low oxygen on 100 FiO2, discussed with patient and she agreed to trial of bipap. She does not want to be seen by Dr. Ledezma, however, so we discussed that if she worsens and needs intubation, we may need to pursue transfer, and she would prefer [facility]. 2/1 Patient improved with bipap and 2 doses of 40 mg IV lasix in last 24 hours, now down to much lower oxygen requirement, continue to titrate bipap as tolerated. Consider repeat lasix today. 2/2 slowly improving, leukocytosis decreasing and no fever, so it does seem antibiotics are likely appropriately treating, but she is having slow improvement with her oxygenation, will give lasix 40 mg IV again today. 2/3 - afebrile, sputum culture positive for chacho albicans and strep pneumo; Day 6 Rocephin and will add diflucan for chacho. WBC 12.4; continues to have very slow improvement in oxygenation, will likely diurese again tomorrow 2/4 - afebrile, WBC trending down, Day 7 Rocephin, Day 2 Diflucan, slowly starting to wean down on her oxygen today; discussed with patient that we may need to consider discharge on home oxygen for a period of time once she is down to a few liters by NC, as it is anticipated that it will be several more days at a minimum before patient will be on room air. Will have to see how patient progresses, but if willing and able to go home on home O2, anticipate that she may be ready for discharge in 48-72 hours. Cardiology is present at the time of the conversation, and they agree the patient would likely benefit from discharge on NC when ready and weaning to room air after discharge as tolerated. 2/5 - Abx off today. will continue to work on getting the O2 down. evaluated for SWB but patient has only oxygen requirement and no skilled needs, so that is not an option. will see how she is tomorrow and go from there. Elevated lactic acid- does not meet other criteria for sepsis and lactic acid is stable between 2 and 4 without improvement after 30 ml/kg bolus, possibly due to PAYAM with metformin use at home, will monitor 2/5 - RESOLVED PAYAM- suspect due to hypovolemia, improved this am after fluids 07/16 continues to improve RESOLVED COPD exacerbation- consider COPD exacerbation versus pneumonia as noted above, RT protocol, supplemental oxygen as needed, solumedrol 07/15- change to prednisone taper, wean supplemental oxygen as tolerated 07/16- continue prednisone taper- respiratory support as above 07/21 - RESOLVED Influenza like illness- has had negative rapid testing x 2 in clinic, but given her underlying comorbidities and know exposure, concern persists for influenza, will treat empirically as she is hypoxic and requiring hospital admission 07/21 - HAS FINISHED TAMIFLU COURSE Chest pain- on breathing, suspect related to her coughing, however, with significant heart history will check EKG and troponin, improving, EKG and troponin unremarkable DMII- diabetic diet, resume home insulin- will start levemir at half dose as she was not taking consistently, holding metformin due to contrast and PAYAM 07/15- blood sugar high, increase to full home doses and monitor closely 07/19 - encouraged pt not to refuse insulin doses, as glucose control is important to help her improve and work towards discharge 07/20 - will change sugars to AC and HS, sugars have been 125 - 329 - 425 - 376 - 312- 212 - 118 - 101 07/21 - increase levemir to 40 units BID CAD- resume home meds, EKG, troponin as noted above HTN- hold home antihypertensives with borderline low BP 07/15 BP increasing, resumed home metoprolol and amlodipine, holding losartan with PAYAM 07/16- markedly elevated overnight requiring hydralazine and increased dose of metoprolol, started on cardizem drip this am per Cardiology due to A fib 07/17- BP improved, monitor 07/18 BP increased after d/c of diltiazem drip, resume home losartan now that renal function is improved 3 - mild HTN. Cardiology following. 07/20 - continues to have elevated blood pressure, per cardiology will increase Losartan to 100 mg PO daily 07/21 - slight improvemetn today Elevated LFTs- trending down today, suspect related to underlying infection, patient also notes being told by GI she has fatty liver 07/16- increased slightly again, likely due to congestive hepatitis, monitor 2/ trending back down 07/20 - AST and ALT remain elevated but are trending down Atrial fibrillation- new onset 07/16 am, Cardiology consulted and started cardizem drip and enoxaparin, echocardiogram pending- per Cardiology she did have an EF of 45% about 3 years ago, troponin remains negative 2 Repeat echo with stable systolic dysfunction, d/c cardizem drip this am, but may need to restart if RVR persists with orals, discussed risks of stroke associated with a fib and likely need for terminal operator anticoagulation with patient today 2 started on Eliquis per Cardiology, oral metoprolol with increased dose and digoxin 2/ paroxysmal afib managed per cards, on eliquis, metoprolol, digoxin, verapamil 07/20 - rate controlled, but when listening rate sound regular but review of telemetry demonstrates persistent atrial flutter. 07/21 - persistent atrial flutter, to be followed by Dr Gonzalez Constipation- continue docusate, try Miralax today 2 Anxiety- on alprazolam 0.25 mg prn daily at home, will increase to BID prn for now given need for bipap, etc and increased anxiety DVT ppx- SCDs, eliquis Phenergan and codeine cough syrup PRN. Patient has improved from yesterday and is starting to wean down on her supplemental oxygen requirements. If she is willing and qualifies for home oxygen, patient may be ready for discharge in 48- 72 hours. Discharge will be discussed with cardiology after patients cardioversion. Clinical Quality Measures DVT/VTE Risk/Contraindication: Risk Factor Score Per Nursin RFS Level Per Nursing on Admit: 3=High CODEY CHATMAN MD 08/06/17 1054: Supervisory-Addendum Brief Supervisory Addendum I personally have seen and evaluated the patient and performed the physical exam. I agree with the documented assessment and plan. MEGHANA WILSON MED STUDENT Jul 23, 2017 10:46 CODEY CHATMAN MD Aug 06, 2017 10:54
--- NOTE | 2017-07-23 10:54 | Anesthesia-Procedure Note ---
Procedure Start/Stop Time Date of Procedure: Jul 23, 2017 Start Time: 09:45 Referring Physician: Lisa Stop Time: 09:56 Procedures/Interventions Procedures Called to 4th floor to assist Dr. Gonzalez with cardioversion. Sedation explained to patient, she wishes to proceed. Monitors on and functional. 4LNC O2. Brief report received from RN. Denture removed and placed at bedside. Propofol 80mg IV total given for procedure. Cardioversion successful x 1 attempt, see Dr. Gonzalez note. VSS following. Upon leaving, patient awake, oriented, answering appropriately. ANDREA HAYWARD CRNA Jul 23, 2017 10:54
[2017-07-23] MEDS: inSUlin DETERMIR 1 UNIT/0.01 ML (LEVEMIR) CHARGE PER UNIT SQ SCH ×2 (11:10→21:07)
[2017-07-23] MEDS: OMEGA 3 (FISH OIL) 1000 MG CAP PO SCH ×2 (11:10→20:21)
[2017-07-23] MEDS: MAGNESIUM OXIDE (MAG-OX)400 MG TAB PO SCH ×2 (11:11→17:51)
[2017-07-23] MEDS: ASPIRIN E.C. 81 MG (ECOTRIN) TAB PO SCH (11:11)
[2017-07-23] MEDS: fluCOnazole (DIFLUCAN) 100 MG TAB PO SCH (11:11)
[2017-07-23] MEDS: MUPIROCIN 2% OINT 22 GM (BACTROBAN) TUBE TOP SCH ×2 (11:12→20:21)
--- NOTE | 2017-07-23 11:38 | Cardiac Procedure Note-CS/ASA ---
Pre-Procedure Note Pre-Op Procedure Note H&P Reviewed The H&P was reviewed, patient examined and no changes noted. Date H&P Reviewed: Jul 23, 2017 Time H&P Reviewed: 08:00 Conscious Sedation Pre-Proced Time Reviewed: 08:00 ASA Class: 3 Airway Mallampati Classification: ([place] appropriate class) I. II. III, IV Lungs Heart ASA score ASA 1: a normal healthy patient ASA 2: a patient with a mild systemic disease (mid diabetes, controlled hypertension, obesity x ASA 3: a patient with a severe systemic disease that limits activity (angina , COPD, prior Myocardial infarction) ASA 4: a patient with an incapacitating disease that is a constant threat to life (CHF, renal failure) ASA 5: a moribund patient not expected to survive 24 hrs. (ruptured aneurysm) ASA 6: a declared brain patient whose organs are being harvested. For emergent operations, add the letter E after the classification Grade 3 Sedation Plan: Analgesia, Amnesia, Plan communicated to team members, Discussed options with patient/fam, Discussed risks with patient/fam Note The patient is an appropriate candidate to undergo the planned procedure, sedation, and anesthesia. The patient immediately re-assessed prior to indication. KYLIE TAYLOR MD Jul 23, 2017 11:38
--- NOTE | 2017-07-23 11:39 | Cardiac Procedure Note ---
Cardiology Procedures Date of Procedure 07/23/17 Electrical cardioversion report Patient was noted to be in atrial flutter, conscious sedation achieved with the assistance of anesthesia. Synchronized DC cardioversion 120 J was delivered and was successful in terminating atrial fibrillation. Patient maintained sinus rhythm. Conclusion Successful electrical cardioversion with no complications KYLIE TAYLOR MD Jul 23, 2017 11:39
--- NOTE | 2017-07-23 11:40 | Cardiology Progress Note ---
Subjective Date Seen by Provider: Jul 23, 2017 Time Seen by Provider: 11:39 Subjective/Events-last exam patient is laying down in bed, feeling well. Denied any chest pain, back to sinus rhythm. Review of Systems General: No Chills, No Night Sweats, No Fatigue, No Malaise, No Appetite, No Other HEENT: No Head Aches, No Visual Changes, No Eye Pain, No Ear Pain, No Dysphasia , No Sinus Congestion, No Post Nasal Drip, No Sore Throat, No Other Pulmonary: Dyspnea, No Cough, No Pleuritic Chest Pain, No Other Cardiovascular: No: Chest Pain, Palpitations, Orthopnea, Paroxysmal Noc. Dyspnea, Edema, Lt Headedness, Other Objective-Cardiology Exam Last Set of Vital Signs Vital Signs 07/20/17 07/23/17 15:31 08:55 Pulse Ox 96 O2 Delivery Nasal Cannula O2 Flow Rate 3.00 FiO2 36 Capillary Refill : I&O Intake and Output 07/22/17 23:59 Intake Total 3840 ml Output Total 5000 ml Balance -1160 ml Intake Oral 3640 ml IV Total 200 ml Output Urine Total 5000 ml # Bowel Movements 1 General: Alert, Oriented X3, No Acute Distress HEENT: Atraumatic Neck: Supple, No LAD Lungs: Other (Mild wheezes throughout) Heart: Regular Rate, Normal S1, Normal S2, No Murmurs Abdomen: Normal Bowel Sounds, Soft, No Tenderness Extremities: No Clubbing, No Cyanosis, No Edema, No Tenderness/Swelling Skin: No Rashes, No Breakdown Neuro: Normal Speech Psych/Mental Status: Mental Status NL, Mood NL Results Lab Laboratory Tests 07/23/17 06:21 A/P-Cardiology Admission Diagnosis Afib with RVR Pneumonia CAD CHF Assessment/Plan Paroxysmal atrial fibrillation, then atrial flutter, underwent DC cardioversion , had transient bradycardia then maintain sinus rhythm, feeling well. Continue to monitor. Okay to discharge from cardiac standpoint and follow up as an outpatient Elevated liver enzymes, persistent, simvastatin discontinued, numbers are improving. Continue to monitor. Hypomagnesemia, replace and monitor Status post acute respiratory failure, better at this time. Continue to monitor Pneumonia, improving,continue antibiotics. Managed by primary care physician. Influenza like illness- currently afebrile. Continue supportive care. Coronary artery disease, history of CABG 4 done in 2011 using HADLEY to LAD, vein graft to OM1, OM 2, PDA. Had an abnormal stress test in 2013 involving the septum. Had been asymptomatic and was scheduled for stress test, however, has not had testing done yet. Planning for stress test as an outpatient. Congestive heart failure, acute on chronic left ventricular systolic dysfunction , ejection fraction 45 -50 percent, unchanged from previous 2D Echo. currently on beta blockers, ARB. Continue to monitor. Hyperlipidemia, monitored as outpatient. Statin discontinued secondary to elevated LFT's Diabetes mellitus. Managed and followed by primary care physician. 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 Mark. Followed by Dr. Casillas. Continue to monitor. Currently in remission History of pancreatitis. History of cholecystectomy, tonsillectomy, laparoscopic oophorectomy, stenting of the common bile duct. Nonobstructive carotid artery stenosis-history of radiation to the neck, increased risk of carotid injury, continue to monitor. Clinical Quality Measures DVT/VTE Risk/Contraindication: Risk Factor Score Per Nursin RFS Level Per Nursing on Admit: 3=High KYLIE TAYLOR MD Jul 23, 2017 11:40
[2017-07-23] MEDS: BENZONATATE 100 MG (TESSALON) CAPSULE PO PRN ×2 (13:10→20:24)
[2017-07-23] MEDS ORDERED: APIX5TAB PO (15:07)
[2017-07-23] MEDS ORDERED: ASPI-983 PO (15:32)
[2017-07-23] MEDS ORDERED: METO50TA15 PO (15:32)
[2017-07-23] MEDS ORDERED: DIGO250T15 PO (15:32)
--- NOTE | 2017-07-23 15:47 | Physical Therapy Daily Note ---
PT Daily Note-Current Subjective Pt sitting in recliner upon arrival. Pt agrees to ambulation for PT. Pain Location: No Pain Reported Mental Status Patient Orientation: Person, Place, Time, Situation Transfers Functional [place] Measure 0=Not Assessed/NA 4=Minimal Assistance 1=Total Assistance 5=Supervision or Setup 2=Maximal Assistance 6=Modified [place] 3=Moderate Assistance 7=Complete IndependenceIRFPAI Quality Coding Scale 6 Independent with activity with or without an assistive device 5 Patient requires set up or clean up by helper. Patient completes activity by themselves 4 Supervision or touching assist (CGA). [place] provide cues , steadying assist 3 The helper provides less than half the effort to complete the activity 2 The helper provides more than half the effort to complete the activity 1 Dependent. The helper does all the effort to complete an activity 7 Patient refused to complete or attempt activity 9 The patient did not perform the activity before the current illness or injury 88 Not attempted due to Medical conditions or safety concerns Scootin Sit to/from Stand: 5 Weight Bearing Right Lower Extremity: Right Full Weight Bearing Left Lower Extremity: Left Full Weight Bearing Gait Training Distance (FIM): 3=150 ft Distance: 450' Gait Level of Assist: 5 Gait Persons Needed: 1 Gait Assistive Device: FWW Pt walks with normalized gait, slow cedric but no LOB. Treatments Pt transfers from recliner to standing using FWW at SBA. Pt then ambulates in hallway using FWW at SBA. Pt returns to room to rest in recliner. Pt resting at end of tx with all needs met. Assessment Current Status: Good Progress Pt's independence and safety with transfers and ambulation have improved. Pt is walking increased distances. PT Short Term Goals Short Term Goals Time Frame: Jul 25, 2017 Transfers (B,C,W/C) (FIM): 7 Gait (FIM): 7 Distance (FIM): 3=150 ft Gait Level of Assist: 7 Gait Assistive Device: None PT Plan Problem List Problem List: Activity Tolerance Treatment/Plan Treatment Plan: Continue Plan of Care Treatment Plan: Education, Functional Activity Roberto, Functional Strength, Gait , Therapeutic Exercise Treatment Duration: Jul 25, 2017 Frequency: 5 times per week Estimated Hrs Per Day: .25 hour per day Patient and/or Family Agrees t: Yes Safety Risks/Education Patient Education: Gait Training, Correct Positioning, Safety Issues Teaching Recipient: Patient Teaching Methods: Discussion Response to Teaching: Verbalize Understanding Time/GCodes Time In: 1445 Time Out: 1505 Total Billed Treatment Time: 20 Total Billed Treatment 1, GT (20m) TE MILLER PTA Jul 23, 2017 15:47
--- NOTE | 2017-07-23 15:50 | Discharge Instructions ---
Discharge [facility] Discharge Medications New, Converted or Re-Newed RX: Transmitted to Pharmacy New Medications: Apixaban (Eliquis) 5 Mg Tablet 5 MG PO BID, #60 TAB 5 Refills Aspirin (Aspirin EC) 81 Mg Tablet.dr 81 MG PO DAILY, #60 TAB 5 Refills Digoxin (Digox) 250 Mcg Tablet 0.25 MG PO DAILY, #30 TAB 5 Refills Metoprolol Tartrate (Metoprolol Tartrate) 50 Mg Tablet 50 MG PO BID, #60 TAB 5 Refills Continued Medications: Alprazolam (Xanax) 0.25 Mg Tablet 0.25 MG PO DAILY PRN for ANXIETY, TAB Amlodipine Besylate (Amlodipine Besylate) 5 Mg Tablet 5 MG PO HS, TAB Aspirin (Aspirin) 325 Mg Tablet 325 MG PO HS, TAB Fish Oil/Dha/Epa (Fish Oil 1,200 mg Fish Oil) 1 Each Capsule 2400 MG PO HS, CAP Furosemide (Furosemide) 40 Mg Tablet 40 MG PO DAILY PRN for SWELLING, TAB Insulin Determir (Levemir) 1,000 Units/10 Ml Soln 32 UNITS SQ BID PRN for BLOOD SUGAR, EA LAST FILLED #30ML 17 Insulin Lispro (Humalog Kwikpen) 100 Unit/1 Ml Insuln.pen 8 UNIT SQ AC PRN for BLOOD SUGAR, EA UNKNOWN LAST FILL DATE Levothyroxine Sodium (Levothyroxine Sodium) 50 Mcg Tablet 50 MCG PO DAILY, TAB Losartan Potassium (Losartan Potassium) 50 Mg Tablet 50 MG PO BID, TAB Lovastatin (Lovastatin) 20 Mg Tablet 20 MG PO HS, TAB Metformin HCl (Metformin HCl) 1,000 Mg Tablet 1000 MG PO BID, TAB Montelukast Sodium (Montelukast Sodium) 10 Mg Tablet 10 MG PO DAILY, TAB Palmer-3 Fatty Acids/Fish Oil (Fish Oil 1,200 mg Softgel) 1 Each Capsule 1200 MG PO DAILY, CAP Omeprazole (Omeprazole) 20 Mg Capsule.dr 20 MG PO DAILY, CAP Potassium Chloride (Klor-Con 10) 10 Meq Tablet.er 10 MEQ PO DAILY PRN for WHEN TAKING FUROSEMIDE, TAB Discontinued Medications: Metoprolol Succinate (Toprol Xl) 25 Mg Tab.er.24h 25 MG PO HS, TAB Patient Instructions Goal/Follow Up Appt: Please schedule an appointment with Dr Gonzalez in [facility] next 1-2 weeks. You will see Dr Villalpando July 28 at 2pm Patient Instructions: 1. please slate picker all new prescriptions (and doses) at [facility]. If you cannot afford your medications, we can assist you. 2. Please follow up with Dr Villalpando as scheduled. Call the clinic if you have any questions or are not feeling well before then. Return to The Hospital For: fever, shortness of breath, palpitations Activity & Diet Discharge Diet: Low Fat/Low Cholesterol Activity as Tolerated: Yes Copy Copies To 1: CODEY VILLALPANDO MD, JULIE A MD Jul 23, 2017 3:50 pm
--- NOTE | 2017-07-23 15:51 | Discharge Summary ---
Diagnosis/Chief Complaint Date of Admission Jul 15, 2017 at 8:16 am Date of Discharge June 23, 2017 Admission Diagnosis Admission Diagnosis SEE BELOW Discharge Diagnosis Pneumonia- suspect possible pneumonia based on symptoms and CXR reported from clinic, will check blood cultures, sputum culture, CBC and lactic acid as well as CT chest to rule out PE or recurrent lung mass with history of lung cancer and new onset hypoxia -Azithromycin and ceftriaxone for CAP 07/15- CTA with no PE, findings consistent with pneumonia, continue azithromycin and ceftriaxone. Vitals and labs without evidence of sepsis on admission, but did have elevated lactic acid which is persistent 07/16- acute on chronic hypoxic hypercapneic respiratory failure, suspect combination of the pneumonia with now superimposed pulmonary edema, given 40 mg IV lasix overnight without much benefit, ABG this am with worsening acidosis and hypercapnea although slightly improved but still low oxygen on 100 FiO2, discussed with patient and she agreed to trial of bipap. She does not want to be seen by Dr. Ledezma, however, so we discussed that if she worsens and needs intubation, we may need to pursue transfer, and she would prefer [place]. 2/1 Patient improved with bipap and 2 doses of 40 mg IV lasix in last 24 hours, now down to much lower oxygen requirement, continue to titrate bipap as tolerated. Consider repeat lasix today. 2/2 slowly improving, leukocytosis decreasing and no fever, so it does seem antibiotics are likely appropriately treating, but she is having slow improvement with her oxygenation, will give lasix 40 mg IV again today. 2/3 - afebrile, sputum culture positive for chacho albicans and strep pneumo; Day 6 Rocephin and will add diflucan for chacho. WBC 12.4; continues to have very slow improvement in oxygenation, will likely diurese again tomorrow 2/4 - afebrile, WBC trending down, Day 7 Rocephin, Day 2 Diflucan, slowly starting to wean down on her oxygen today; discussed with patient that we may need to consider discharge on home oxygen for a period of time once she is down to a few liters by CA, as it is anticipated that it will be several more days at a minimum before patient will be on room air. Will have to see how patient progresses, but if willing and able to go home on home O2, anticipate that she may be ready for discharge in 48-72 hours. Cardiology is present at the time of the conversation, and they agree the patient would likely benefit from discharge on NC when ready and weaning to room air after discharge as tolerated. 2 - Abx off today. will continue to work on getting the O2 down. evaluated for SWB but patient has only oxygen requirement and no skilled needs, so that is not an option. will see how she is tomorrow and go from there. At discharge, the patient was no longer requiring antibiotics. She no longer had an oxygen requirement after the cardioversion. We will send her home on a long steroid taper and follow her closely in the clinic. Elevated lactic acid- does not meet other criteria for sepsis and lactic acid is stable between 2 and 4 without improvement after 30 ml/kg bolus, possibly due to PAYAM with metformin use at home, will monitor 07/21 - RESOLVED PAYAM- suspect due to hypovolemia, improved this am after fluids 07/16 continues to improve RESOLVED COPD exacerbation- consider COPD exacerbation versus pneumonia as noted above, RT protocol, supplemental oxygen as needed, solumedrol 07/15- change to prednisone taper, wean supplemental oxygen as tolerated 07/16- continue prednisone taper- respiratory support as above 07/21 - RESOLVED Long steroid taper at discharge Influenza like illness- has had negative rapid testing x 2 in clinic, but given her underlying comorbidities and know exposure, concern persists for influenza, will treat empirically as she is hypoxic and requiring hospital admission 07/21 - HAS FINISHED TAMIFLU COURSE Chest pain- on breathing, suspect related to her coughing, however, with significant heart history will check EKG and troponin, improving, EKG and troponin unremarkable DMII- diabetic diet, resume home insulin- will start levemir at half dose as she was not taking consistently, holding metformin due to contrast and PAYAM 07/15- blood sugar high, increase to full home doses and monitor closely 07/19 - encouraged pt not to refuse insulin doses, as glucose control is important to help her improve and work towards discharge 07/20 - will change sugars to AC and HS, sugars have been 125 - 329 - 425 - 376 - 312- 212 - 118 - 101 07/21 - increase levemir to 40 units BID Will need to be followed closely as an outpatient after we wean the steroids. CAD- resume home meds, EKG, troponin as noted above HTN- hold home antihypertensives with borderline low BP 1/30 BP increasing, resumed home metoprolol and amlodipine, holding losartan with PAYAM 07/16- markedly elevated overnight requiring hydralazine and increased dose of metoprolol, started on cardizem drip this am per Cardiology due to A fib 07/17- BP improved, monitor 07/18 BP increased after d/c of diltiazem drip, resume home losartan now that renal function is improved 2 - mild HTN. Cardiology following. 07/20 - continues to have elevated blood pressure, per cardiology will increase Losartan to 100 mg PO daily 07/21 - slight improvemetn today Elevated LFTs- trending down today, suspect related to underlying infection, patient also notes being told by GI she has fatty liver 07/16- increased slightly again, likely due to congestive hepatitis, monitor 07/17 trending back down 07/20 - AST and ALT remain elevated but are trending down Atrial fibrillation- new onset 07/16 am, Cardiology consulted and started cardizem drip and enoxaparin, echocardiogram pending- per Cardiology she did have an EF of 45% about 3 years ago, troponin remains negative 07/17 Repeat echo with stable systolic dysfunction, d/c cardizem drip this am, but may need to restart if RVR persists with orals, discussed risks of stroke associated with a fib and likely need for fdc anticoagulation with patient today 07/18 started on Eliquis per Cardiology, oral metoprolol with increased dose and digoxin 07/19 paroxysmal afib managed per cards, on eliquis, metoprolol, digoxin, verapamil 07/20 - rate controlled, but when listening rate sound regular but review of telemetry demonstrates persistent atrial flutter. 07/21 - persistent atrial flutter, to be followed by Dr Gonzalez Received cardioversion on July 23, observed overnight with no recurrence and improvement in her SOB and energy. She will follow with Dr Gonzalez as an outpatinet. Constipation- continue docusate, try Miralax today 22 Anxiety- on alprazolam 0.25 mg prn daily at home, will increase to BID prn for now given need for bipap, etc and increased anxiety Discussed with Arielle that Xanax is really not a good fdc option. I'd like her to go back to using it only every few days as was her norm prior to the hospitalization. Chief Complaint/HPI Chief Complaint/HPI 57 yo female presented to Walk-in clinic at [facility] today due to shortness of breath and pain between shoulder blades and anterior chest with deep breath. She has been coughing as well and vomited 3 x this morning. She thought she might have the flu, but her influenza test was negative in clinic. She has felt feverish at home, but has not had a measured fever. She does have exposure to influenza from a grandchild and she was sick about 10 days ago with cough but not this severe, got a little better and then was much worse this morning. She does have a history of lung cancer with CRISTINA resection 2 years ago as well as throat cancer 3 years ago. She does endorse a diagnosis of COPD but does not use inhalers at home or require supplemental oxygen at baseline. In clinic she was found to be saturating 84% on room air and had a chest x-ray with LLB infiltrate concerning for pneumonia or recurrent tumor. Discharge Summary-Simple/Stand Consultations Discharge Physical Examination Allergies: Coded Allergies: enalaprilat (Verified Allergy, Severe, anaphylactic, 06/26/07) codeine (Unverified Allergy, Unknown, 01/13/07) haloperidol (Unverified Allergy, Unknown, NAUSEA, 10/07/13) Vitals & I&Os Vital Sign - Last 12Hours Date Time Temp Pulse Resp B/P (MAP) Pulse Ox O2 Delivery O2 Flow Rate FiO2 07/23/17 14:41 93 Room Air 07/23/17 13:05 2.00 07/23/17 11:09 82 154/79 (104) 07/23/17 09:51 97.2 07/23/17 08:00 20 07/20/17 15:31 36 Intake and Output 07/23/17 00:00 Intake Total 3200 ml Output Total 3600 ml Balance -400 ml General Appearance: Alert, Oriented X3, Cooperative, No Acute Distress Respiratory: Clear to Auscultation, Normal Air Movement Cardiovascular: Regular Rate, Normal S1, Normal S2, No Murmurs, Gallops, Rubs Abdominal: Normal Bowel Sounds, Soft, No Tenderness, No Hepatosplenomegaly, No Masses Extremities: No Clubbing, No Cyanosis, No Edema Neuro: Normal Gait, Normal Speech, Strength at 5/5 X4 Ext, Normal Tone Psych/Mental Status: Mental Status NL, Mood NL Hospital Course See final discharge diagnosis. Radiology Reviewed CTA Chest 07/14: IMPRESSION: 1. No evidence of acute pulmonary embolus. 2. Interval development of moderate scattered patchy and confluent alveolar infiltrates in the left lung. The appearance is suggestive of acute pneumonia. Followup after appropriate course of antibiotic therapy is recommended. 3. Mildly prominent right hilar lymph nodes; possibly reactive. However, metastatic process cannot be excluded given the patient's history of lung cancer. 4. Background of mild emphysematous disease. Discharge Instructions to patient/family Please see electronic discharge instructions given to patient. Discharge Medications Reviewed and agree with Discharge Medication list on patient's Discharge Instruction sheet Clinical Quality Measures DVT/VTE Risk/Contraindication: Risk Factor Score Per Nursin RFS Level Per Nursing on Admit: 3=High Copy Copies To 1: CODEY CHATMAN MD, JULIE A MD Jul 23, 2017 15:51
[2017-07-23] MEDS: MONTELUKAST 10 MG (SINGULAIR) TAB PO SCH (20:21)
[2017-07-23] MEDS: ALPRAZolam 0.25 MG (XANAX) TAB PO PRN (20:24)
[2017-07-24] VITALS: BP 113/67
[2017-07-24 04:31] VITALS: BP 145/69
[2017-07-24] MEDS: inSUlin (REGULAR) HUMAN 1 UNIT/0.01 ML (CHARGE PER UNIT) SC SCH (06:01)
[2017-07-24] MEDS: LEVOTHYROXINE 50 MCG (LEVOTHROID) TAB PO SCH (06:02)
[2017-07-24] MEDS: PANTOPRAZOLE 20 MG TABLET (PROTONIX) PO SCH (06:02)
[2017-07-24] MEDS: hydrALAZINE (APRESOLINE) 25 MG TAB PO SCH (06:02)
[2017-07-24] MEDS: CATHETER FLUSH 10 ML SYR IV SCH (06:03)
[2017-07-24 06:12] LABS: BASOPHILS % (AUTO) 0 % (0-10); EOSINOPHILS # (AUTO) 0.2 10^3/uL (0.0-0.3); EOSINOPHILS % (AUTO) 2 % (0-10); HEMATOCRIT 34 % (35-52); HEMOGLOBIN 11.1 G/DL (11.5-16.0); LYMPHOCYTES # (AUTO) 1.4 X 10^3 (1.0-4.0); LYMPHOCYTES % (AUTO) 15 % (12-44); MEAN CORPUSCULAR HEMOGLOBIN 30 PG (25-34); MEAN CORPUSCULAR HGB CONC 33 G/DL (32-36); MEAN CORPUSCULAR VOLUME 90 FL (80-99); MEAN PLATELET VOLUME 10.4 FL (7.4-10.4); MONOCYTES # (AUTO) 0.4 X 10^3 (0.0-1.0); MONOCYTES % (AUTO) 5 % (0-12); NEUTROPHILS # (AUTO) 7.4 X 10^3 (1.8-7.8); NEUTROPHILS % (AUTO) 78 % (42-75); PLATELET COUNT 192 10^3/uL (130-400); RED BLOOD COUNT 3.75 10^6/uL (4.35-5.85); RED CELL DISTRIBUTION WIDTH 14.8 % (10.0-14.5); WHITE BLOOD COUNT 9.5 10^3/uL (4.3-11.0)
[2017-07-24 06:28] LABS: CREATININE SERUM 1.03 MG/DL (0.60-1.30); MAGNESIUM 1.6 MG/DL (1.8-2.4); POTASSIUM 4.6 MMOL/L (3.6-5.0)
[2017-07-24] MEDS: RT-LEVALBUTEROL (XOPENEX) 1.25 MG/3 ML NEB NON-FORMULARY INH SCH (06:54)
[2017-07-24 08:00] VITALS: BP 135/77
[2017-07-24] MEDS ORDERED: DRON400T2 PO (08:03)
--- NOTE | 2017-07-24 08:05 | Cardiology Progress Note ---
Subjective Date Seen by Provider: Jul 24, 2017 Time Seen by Provider: 08:04 Subjective/Events-last exam Patient is feeling better, off oxygen, and regular rhythm. Denied any chest pain or shortness of breath Review of Systems General: No Chills, No Night Sweats, No Fatigue, No Malaise, No Appetite, No Other HEENT: No Head Aches, No Visual Changes, No Eye Pain, No Ear Pain, No Dysphasia , No Sinus Congestion, No Post Nasal Drip, No Sore Throat, No Other Pulmonary: No Dyspnea, No Cough, No Pleuritic Chest Pain, No Other Cardiovascular: No: Chest Pain, Palpitations, Orthopnea, Paroxysmal Noc. Dyspnea, Edema, Lt Headedness, Other Objective-Cardiology Exam Last Set of Vital Signs Vital Signs 07/20/17 07/23/17 07/24/17 07/24/17 15:31 13:05 04:31 06:54 Temp 97.4 Pulse 85 Resp 16 B/P (MAP) 145/69 (94) Pulse Ox 92 O2 Delivery Room Air O2 Flow Rate 2.00 FiO2 36 Capillary Refill : I&O Intake and Output 07/24/17 00:00 Intake Total 2650 ml Output Total 4400 ml Balance -1750 ml Intake Oral 2550 ml IV Total 100 ml Output Urine Total 4400 ml # Voids 2 General: Alert, Oriented X3, No Acute Distress HEENT: Atraumatic Neck: Supple, No JVD, No LAD Lungs: Clear to Auscultation Heart: Regular Rate, Normal S1, Normal S2, No Murmurs Abdomen: Normal Bowel Sounds, Soft, No Tenderness Extremities: No Clubbing, No Cyanosis, No Edema, No Tenderness/Swelling Skin: No Rashes, No Breakdown Neuro: Normal Speech Psych/Mental Status: Mental Status NL, Mood NL Results Lab Laboratory Tests 07/24/17 05:55 A/P-Cardiology Admission Diagnosis Afib with RVR Pneumonia CAD CHF Assessment/Plan Paroxysmal atrial fibrillation, then atrial flutter, underwent DC cardioversion , had transient bradycardia then maintain sinus rhythm, feeling well. Continue to monitor. I started her on Multaq, Okay to discharge from cardiac standpoint and follow up as an outpatient Elevated liver enzymes, persistent, simvastatin discontinued, numbers are improving. Continue to monitor. Hypomagnesemia, replace and monitor Status post acute respiratory failure, better at this time. Continue to monitor Pneumonia, improving,continue antibiotics. Managed by primary care physician. Influenza like illness- currently afebrile. Continue supportive care. Coronary artery disease, history of CABG 4 done in 2011 using HADLEY to LAD, vein graft to OM1, OM 2, PDA. Had an abnormal stress test in 2013 involving the septum. Had been asymptomatic and was scheduled for stress test, however, has not had testing done yet. Planning for stress test as an outpatient. Congestive heart failure, acute on chronic left ventricular systolic dysfunction , ejection fraction 45 -50 percent, unchanged from previous 2D Echo. currently on beta blockers, ARB. Continue to monitor. Hyperlipidemia, monitored as outpatient. Statin discontinued secondary to elevated LFT's Diabetes mellitus. Managed and followed by primary care physician. 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 Mark. Followed by Dr. Casillas. Continue to monitor. Currently in remission History of pancreatitis. History of cholecystectomy, tonsillectomy, laparoscopic oophorectomy, stenting of the common bile duct. Nonobstructive carotid artery stenosis-history of radiation to the neck, increased risk of carotid injury, continue to monitor. Clinical Quality Measures DVT/VTE Risk/Contraindication: Risk Factor Score Per Nursin RFS Level Per Nursing on Admit: 3=High KYLIE TAYLOR MD Jul 24, 2017 08:05
[2017-07-24] MEDS: fluCOnazole (DIFLUCAN) 100 MG TAB PO SCH (08:15)
[2017-07-24] MEDS: ASPIRIN E.C. 81 MG (ECOTRIN) TAB PO SCH (08:15)
[2017-07-24] MEDS: inSUlin DETERMIR 1 UNIT/0.01 ML (LEVEMIR) CHARGE PER UNIT SQ SCH (08:15)
[2017-07-24] MEDS: meTOprolol TARTRATE 50 MG (LOPRESSOR) TAB PO SCH (08:15)
[2017-07-24] MEDS: NICOTINE 21 MG (NICODERM) PATCH TD SCH (08:15)
[2017-07-24] MEDS: OMEGA 3 (FISH OIL) 1000 MG CAP PO SCH (08:15)
[2017-07-24] MEDS: MAGNESIUM OXIDE (MAG-OX)400 MG TAB PO SCH (08:15)
[2017-07-24] MEDS: LOSARTAN 100 MG (COZAAR) TABLET PO SCH (08:15)
[2017-07-24] MEDS: APIXABAN 5 MG (ELIQUIS) TABLET PO SCH (08:15)
[2017-07-24] MEDS: DIGOXIN 0.25 MG (LANOXIN) TAB PO SCH (08:15)
[2017-07-24] MEDS: NICOTINE PATCH REMOVAL TP SCH (08:16)
[2017-07-24] MEDS: MUPIROCIN 2% OINT 22 GM (BACTROBAN) TUBE TOP SCH (08:17)
[2017-07-24] MEDS: BENZONATATE 100 MG (TESSALON) CAPSULE PO PRN (08:30)
[2017-07-24] MEDS ORDERED: DRONEDARONE TABLET 400 MG TABLET PO SCH (09:00)
--- NOTE | 2017-07-25 11:10 | Physician Query Clarification ---
PQ-Link Manifestation-Etiology Admission/Discharge Admission Date: Jul 15, 2017 at 08:16 Discharge Date: Jul 24, 2017 at 09:50 The medical record reflects the following clinical scenario: History/Risk Factors: Pneumonia Clinical Findings: positive sputum culture: Francie albicans and Strep pneumo Treatment: Rocephin and Diflucan Question: Can you specify if the Pneumonia is due to/associated with Francie albicans and Strep pneumo? Please document a response below PHYSICIAN RESPONSE Manifestation due to/assoic: Yes In responding to this query, please exercise your independent professional judgment. The purpose of this communication is to more accurately reflect the complexity of your patients condition. The fact that a question is asked does not imply that any particular answer is desired or expected. Thank you for your timely response to this clarification. Requestors name: [ ] Phone # [ ] THIS PHYSICIAN QUERY FORM IS A PERMANENT PART OF THE MEDICAL RECORD CHAZ GUTIERREZ Jul 25, 2017 11:10 CODEY CHATMAN MD Aug 06, 2017 11:03
== END 2017-07-24 09:50 | disposition home or self-care (01) | DRG 193 ==
LOC: 4TH 12:45 → UNDOADMOB 12:45 → 4TH 13:00 → OBSVTOIN 07-15 08:16 → INTOOBSV 07-15 08:16 → ICU 07-16 04:10 → 4TH 07-16 04:10 → ICU 07-19 15:18 → UNDODISIN 07-24 09:50
PROVIDERS: ADMIT Family Medicine; ATTEND Family Medicine
PROC: 5A2204Z Restoration of Cardiac Rhythm, Single (ICD-10-PCS; principal; 2017-07-23)
DX: J11.08 Influenza due to unidentified influenza virus with specified pneumonia (principal); J13 Pneumonia due to Streptococcus pneumoniae; B37.1 Pulmonary candidiasis; N17.9 Acute kidney failure, unspecified; I11.0 Hypertensive heart disease with heart failure; I50.23 Acute on chronic systolic (congestive) heart failure; J44.1 Chronic obstructive pulmonary disease with (acute) exacerbation; J44.0 Chronic obstructive pulmonary disease with (acute) lower respiratory infection; J96.21 Acute and chronic respiratory failure with hypoxia; J96.22 Acute and chronic respiratory failure with hypercapnia; I48.92 Unspecified atrial flutter; I48.0 Paroxysmal atrial fibrillation; R74.0 Nonspecific elevation of levels of transaminase and lactic acid dehydrogenase [LDH]; E86.1 Hypovolemia; R07.9 Chest pain, unspecified; I95.9 Hypotension, unspecified; I25.10 Atherosclerotic heart disease of native coronary artery without angina pectoris; E11.9 Type 2 diabetes mellitus without complications; F17.210 Nicotine dependence, cigarettes, uncomplicated; F41.9 Anxiety disorder, unspecified; K59.00 Constipation, unspecified; K76.0 Fatty (change of) liver, not elsewhere classified; E78.5 Hyperlipidemia, unspecified; Z92.21 Personal history of antineoplastic chemotherapy; Z92.3 Personal history of irradiation; Z85.118 Personal history of other malignant neoplasm of bronchus and lung; Z95.1 Presence of aortocoronary bypass graft; Z90.2 Acquired absence of lung [part of]; Z85.21 Personal history of malignant neoplasm of larynx; Z79.84 Long term (current) use of oral hypoglycemic drugs
CPT/HCPCS: 36415; 71045; 71275; 80048; 80053; 80076; 80162; 82805; 82962; 83605; 83690; 83735; 83880; 84100; 84484; 85007; 85025; 85027; 87040; 87070; 87205; 93005; 93306; 94640; 94660; 94760; 94761; G0378

== ENCOUNTER 2017-09-18 10:32 | Outpatient (RCR) | payer MEDICARE, OTHER ==
[~2017-09-18 10:32] MED LIST changes: -BARIUM SUSPENSION 2.1% (VANILLA SILQ) 450 ML PO ONE; -CATHETER FLUSH 10 ML SYR IV PRN; -IOHEXOL 350 MG/ML 100 ML (OMNIPAQUE 350) VIAL IV ONE; -METF1000 PO; +METF10002 PO; -NS 250 ML (IVPB) BAG IV ONE
[2017-09-18 10:57] LABS: BASOPHILS % (AUTO) 1 % (0-10); EOSINOPHILS # (AUTO) 0.2 10^3/uL (0.0-0.3); EOSINOPHILS % (AUTO) 2 % (0-10); HEMATOCRIT 37 % (35-52); HEMOGLOBIN 12.1 G/DL (11.5-16.0); LYMPHOCYTES # (AUTO) 1.6 X 10^3 (1.0-4.0); LYMPHOCYTES % (AUTO) 19 % (12-44); MEAN CORPUSCULAR HEMOGLOBIN 28 PG (25-34); MEAN CORPUSCULAR HGB CONC 33 G/DL (32-36); MEAN CORPUSCULAR VOLUME 87 FL (80-99); MEAN PLATELET VOLUME 10.9 FL (7.4-10.4); MONOCYTES # (AUTO) 0.5 X 10^3 (0.0-1.0); MONOCYTES % (AUTO) 6 % (0-12); NEUTROPHILS # (AUTO) 5.9 X 10^3 (1.8-7.8); NEUTROPHILS % (AUTO) 72 % (42-75); PLATELET COUNT 158 10^3/uL (130-400); RED BLOOD COUNT 4.26 10^6/uL (4.35-5.85); RED CELL DISTRIBUTION WIDTH 13.8 % (10.0-14.5); WHITE BLOOD COUNT 8.1 10^3/uL (4.3-11.0)
[2017-09-18 11:14] LABS: ALBUMIN 4.2 GM/DL (3.2-4.5); BILIRUBIN,TOTAL 0.5 MG/DL (0.1-1.0); CREATININE SERUM 1.13 MG/DL (0.60-1.30); TOTAL PROTEIN 7.4 GM/DL (6.4-8.2)
== END 2017-09-29 15:56 | disposition home or self-care (01) ==
LOC: ONC 10:32
PROVIDERS: ATTEND Internal Medicine Hematology & Oncology
DX: C32.1 Malignant neoplasm of supraglottis (principal); C34.12 Malignant neoplasm of upper lobe, left bronchus or lung; F17.210 Nicotine dependence, cigarettes, uncomplicated; I25.10 Atherosclerotic heart disease of native coronary artery without angina pectoris; E11.43 Type 2 diabetes mellitus with diabetic autonomic (poly)neuropathy; J43.9 Emphysema, unspecified; I10 Essential (primary) hypertension; E78.5 Hyperlipidemia, unspecified; E83.42 Hypomagnesemia; Z79.899 Other long term (current) drug therapy; Z92.3 Personal history of irradiation; Z92.21 Personal history of antineoplastic chemotherapy; Z45.2 Encounter for adjustment and management of vascular access device
CPT/HCPCS: 36415; 80053; 84443; 85025; 96523

== ENCOUNTER → 2017-09-18 | Outpatient (CLI) | payer MEDICARE ==
[~2017-09-18] MED LIST changes: +APIX5TAB PO; +ASPI-983 PO; +BARIUM SUSPENSION 2.1% (VANILLA SILQ) 450 ML PO ONE; +CATHETER FLUSH 10 ML SYR IV PRN; +DIGO250T15 PO; +DRON400T2 PO; +FISH1CAP15 PO; +INSU100I23 SQ; +INSU100V5 SQ; +IOHEXOL 350 MG/ML 100 ML (OMNIPAQUE 350) VIAL IV ONE; +LOSA50TA36 PO; +METF1000 PO; +METO-351 PO; +METO50TA15 PO; +NS 250 ML (IVPB) BAG IV ONE; +OMEP20CA12 PO; +POTA10TA6 PO
--- NOTE | 2017-09-18 15:17 | Diagnostic Imaging Report ---
EXAMINATION: CT of the chest, abdomen, and pelvis with and without contrast. INDICATION: Lung cancer. TECHNIQUE: Contiguous axial sections were taken through the abdomen and pelvis following administration of oral contrast. Subsequently, additional images of the neck, chest, abdomen, and pelvis were obtained after intravenous contrast was administered. A delayed series through the abdomen and pelvis was performed as well. Sagittal and coronal reconstructed images were also obtained. FINDINGS: The previous CTA chest exam of 07/14/2017 failed to show any evidence for an acute cardiopulmonary abnormality. On this study, the heart size is stable when compared to the previous exam. The aorta is not abnormally dilated and there is no sign of dissection. There is no defect within the pulmonary arteries to indicate pulmonary embolus. The previous exam did note diffuse alveolar/interstitial pulmonary infiltrates throughout the left lung. Those abnormal parenchymal densities have essentially cleared. There is mild thickening of the pleura along the posterior aspect of the left midlung. The right lung is also generally clear. There do appear to be mild emphysematous changes involving both lungs. There is no parenchymal lung mass identified. The previous study did suggest prominent hilar lymph nodes. Those nodes have diminished in size. There is no mediastinal adenopathy. There is no obvious breast mass. There is a Port-A-Cath in place on the left with the tip of the catheter in the midsuperior vena cava. The images of the neck show no mass or adenopathy. There is still soft tissue edema/thickening of the glottis and epiglottis, similar to the prior CT neck exam of 04/03/2017. The small area of low density in the inferior pole of the left lobe of the thyroid seen previously is also unchanged. The atherosclerotic disease involving the carotid bifurcations noted on the prior study is again noted. There is no hemodynamically significant stenosis visualized. The intracranial contents where visualized are unremarkable for an acute abnormality or for a mass lesion. The sinuses are generally clear. The previous CT abdomen/pelvis exam of 06/06/2017 indicated mild acute pancreatitis superimposed on chronic pancreatitis. On this study, the pancreas does not seem to be abnormally enlarged and there is no stranding of the peripancreatic fat to suggest acute pancreatitis. The liver is of lower density than usually seen. The liver is homogeneous. The spleen, adrenals, kidneys, aorta, and inferior vena cava are unremarkable for an acute abnormality. As noted on the prior exam, the gallbladder is surgically absent. The stomach is not well distended and consequently difficult to assess. The images through the pelvis show that there is diverticulosis of the sigmoid colon but there is no sign of acute diverticulitis. The urinary bladder and uterus are grossly unremarkable. The appendix was not particularly well visualized but there are no indirect signs of acute appendicitis. The bone windows again show severe degenerative disc and bony disease throughout the lumbar spine and in the lower cervical spine. There is no fracture or acute bony abnormality evident. There is no sign of a destructive lesion. IMPRESSION: 1. The appearance of the chest has improved since the prior exam as the left lung is much better aerated. There is no evidence for an acute cardiopulmonary abnormality at this time. 2. The hilar adenopathy noted on the prior exam has essentially resolved. There is no evidence for neoplastic disease involving the thorax. 3. The edema and inflammation of the epiglottis and glottis seen on the prior study appears stable. There is no mass or adenopathy involving the neck. 4. There is no acute abnormality of the abdomen or pelvis. In particular, there is no sign of pancreatitis. Dictated by: Dictated on workstation # [id number]
== END ==
LOC: RAD 10:56
PROVIDERS: ATTEND Internal Medicine Hematology & Oncology
DX: C34.12 Malignant neoplasm of upper lobe, left bronchus or lung (principal); C32.1 Malignant neoplasm of supraglottis; R74.8 Abnormal levels of other serum enzymes
CPT/HCPCS: 70491; 71260; 74178

== ENCOUNTER 2017-12-22 09:30 | Outpatient (RCR) | payer MEDICARE, OTHER | END 2017-12-31 | disposition home or self-care (01) | LOC: ONC 09:30 | PROVIDERS: ATTEND Internal Medicine Hematology & Oncology | DX: C32.1 Malignant neoplasm of supraglottis (principal); C34.12 Malignant neoplasm of upper lobe, left bronchus or lung; F17.210 Nicotine dependence, cigarettes, uncomplicated; I25.10 Atherosclerotic heart disease of native coronary artery without angina pectoris; E11.43 Type 2 diabetes mellitus with diabetic autonomic (poly)neuropathy; J43.9 Emphysema, unspecified; I10 Essential (primary) hypertension; E78.5 Hyperlipidemia, unspecified; E83.42 Hypomagnesemia; Z79.899 Other long term (current) drug therapy; Z92.3 Personal history of irradiation; Z92.21 Personal history of antineoplastic chemotherapy; Z45.2 Encounter for adjustment and management of vascular access device | CPT/HCPCS: 96523; 99213 ==

== ENCOUNTER 2018-02-17 13:15 | Outpatient (RCR) | payer MEDICARE, OTHER ==
[~2018-02-17 13:15] MED LIST changes: -AMLO5TAB2 PO; +AMLO5TAB7 PO; -LOSA50TA36 PO; +LOSA50TA7 PO; +METF-399 PO; -METF10002 PO
== END 2018-03-15 | disposition home or self-care (01) ==
LOC: ONC 13:15
PROVIDERS: ATTEND Internal Medicine Hematology & Oncology
DX: C32.1 Malignant neoplasm of supraglottis (principal); C34.12 Malignant neoplasm of upper lobe, left bronchus or lung; F17.210 Nicotine dependence, cigarettes, uncomplicated; I25.10 Atherosclerotic heart disease of native coronary artery without angina pectoris; E11.43 Type 2 diabetes mellitus with diabetic autonomic (poly)neuropathy; J43.9 Emphysema, unspecified; I10 Essential (primary) hypertension; E78.5 Hyperlipidemia, unspecified; E83.42 Hypomagnesemia; Z79.899 Other long term (current) drug therapy; Z92.3 Personal history of irradiation; Z92.21 Personal history of antineoplastic chemotherapy; Z45.2 Encounter for adjustment and management of vascular access device
CPT/HCPCS: 96523

== ENCOUNTER 2018-05-27 09:30 | Outpatient (CLI) | payer MEDICARE ==
[~2018-05-27] VITALS: Ht 177.8 cm; Wt 93.1 kg
[2018-05-27] MEDS ORDERED: METO-333 PO (09:50)
[2018-05-27] MEDS ORDERED: LOSA25TA6 PO (09:50)
[2018-05-27] MEDS ORDERED: FERR325T24 PO (09:50)
[2018-05-27] MEDS ORDERED: METF-397 PO (09:50)
[2018-05-27] MEDS ORDERED: LEVO88TA54 PO (09:50)
== END 2018-05-27 10:19 ==
LOC: PREOP 09:30
PROVIDERS: ATTEND Surgery
DX: Z01.818 Encounter for other preprocedural examination (principal)

== ENCOUNTER 2018-06-02 08:56 | Day surgery (SDC) | payer MEDICARE ==
[~2018-06-02] VITALS: Ht 177.8 cm; Wt 93.1 kg
[~2018-06-02 08:56] MED LIST changes: +FERR325T24 PO; +LEVO88TA54 PO; +LOSA25TA6 PO; +METF-397 PO; +METO-333 PO
--- OUTSIDE RECORDS SUMMARY | 2018-06-02 09:00 | XMS REPORT | Clinical Summary ---
Author Author [facility] Organization [facility] Address Unknown Phone Unavailable Care Team Providers Care Siding Mechanic Name Role Phone Nidhi Ventura MD Unavailable Lolly Mcgregor MD PCP Mary Boland MA,[facility]ER Unavailable Unavailable Louise Parrish MA,[facility] Unavailable Unavailable Amparo Reyes RN Unavailable Unavailable Source Comments Some departments are not documenting in the electronic medical record. If you do not see the information that you expected, contact Release of Information in the Health Information Management department at [phone] for further assistance in locating additional records.[facility] Allergies Comments Active Allergy Reactions Severity Noted Date Codeine NAUSEA AND 09/22/2013 VOMITING "throat swells up and it's not good" Enalaprilat SEE COMMENTS 09/22/2013 Haloperidol Lactate MENTAL STATUS 09/22/2013 CHANGES Medications End Date Status Medication Sig Dispensed Refills Start Date Active rosuvastatin (CRESTOR) 10 Take 10 mg by 0 mg tablet mouth daily. Active DOCOSAHEXANOIC ACID/EPA Take 1,200 mg 0 (FISH OIL PO) by mouth twice daily. Active metFORMIN (GLUCOPHAGE) Take 1,000 mg 0 1,000 mg tablet by mouth twice daily with meals. Active aspirin 325 mg tablet Take 325 mg 0 by mouth daily. Active losartan (COZAAR) 50 mg Take 50 mg by 0 tablet mouth daily. Active metoprolol (LOPRESSOR) 25 Take 25 mg by 0 mg tablet mouth daily. Active VITS Take by 0 W-CA,FE,FA(<1MG) mouth. ( VITAMIN PO) Active INSULIN LISPRO (HUMALOG Inject into 0 PEN SC) area(s) as directed. Active INSULIN DETEMIR (LEVEMIR Inject 34 0 FLEXPEN SC) Units into area(s) as directed at bedtime daily. Active Problems Problem Noted Date Dysphagia 09/09/2013 Diabetes mellitus 09/07/2013 Mass of epiglottis 09/07/2013 Family History Medical History Relation Name Comments Cancer-Lung Father Heart Attack Father Cancer Mother Diabetes Mother Relation Name Status Comments Father Mother Social History Date Tobacco Use Types Packs/Day Years Used Current Every Day Smoker Cigarettes 1.5 Smokeless Tobacco: Never Used Comments: Smoking for 30 years Alcohol Use Drinks/Week oz/Week Comments No Sex Assigned at Date Recorded Not on file Industry Job Start Date Occupation Not on file Not on file Not on file Travel End Travel History Travel Start No recent travel history available. Last Filed Vital Signs Time Taken Vital Sign Reading 09/22/2013 4:04 PM CDT Blood Pressure 144/67 09/22/2013 4:19 PM CDT Pulse 77 09/22/2013 2:30 PM CDT Temperature 36.7 C (98.1 F) - Respiratory Rate - 09/22/2013 4:19 PM CDT Oxygen Saturation 97% - Inhaled Oxygen - Concentration 09/22/2013 10:40 AM CDT Weight 82.6 kg (182 lb 1.6 oz) 09/22/2013 10:40 AM CDT Height 175.3 cm (5' 9") 09/22/2013 10:40 AM CDT Body Mass Index 26.89 Plan of Treatment Health Maintenance Due Date Last Done Comments HEPATITIS C SCREENING 1960 PHYSICAL (COMPREHENSIVE) 01/03/1967 EXAM HIV SCREENING 01/03/1975 DTAP/TDAP VACCINES (1 - 01/03/1978 Tdap) CERVICAL CANCER SCREENING 01/03/1990 BREAST CANCER SCREENING 2000 COLORECTAL CANCER 01/03/2010 SCREENING SHINGLES RECOMBINANT 01/03/2010 VACCINE (1 of 2) INFLUENZA VACCINE 01/14/2018 Results Not on filefrom Last 3 Months Insurance Payer Benefit Subscriber ID Type Phone Address Plan / Group [facility] xxxxxxxxxxxx PPO PREF CARE Advance Directives Patient has advance care planning documents on file. For more information, please contact: [facility] [address] [place] [address]
[2018-06-02] MEDS ORDERED: LACTATED RINGERS 1,000 ML IV ONE (09:09)
[2018-06-02] MEDS ORDERED: LACTATED RINGERS 1,000 ML IV STA (09:09)
[2018-06-02] MEDS ORDERED: HURRICAINE EXT TUBE (BENZOCAINE) XX PRN (09:15)
--- NOTE | 2018-06-02 09:56 | Progress Note-Pre Operative ---
Pre-Operative Progress Note H&P Reviewed The H&P was reviewed, patient examined and no changes noted. Date Seen by Provider: Jun 02, 2018 Time Seen by Provider: 09:56 Date H&P Reviewed: Jun 02, 2018 Time H&P Reviewed: 09:56 Pre-Operative Diagnosis: iron def anemia, bloating LILLY LEE DO Jun 02, 2018 09:56
[2018-06-02] MEDS ORDERED: HURRICAINE EXT TUBE (BENZOCAINE) ONE (10:16)
[2018-06-02] MEDS ORDERED: PROPOFOL INJECTION 50 ML IV ONE (10:16)
[2018-06-02 10:20] VITALS: BP 124/63
[2018-06-02] MEDS ORDERED: MIDAZOLAM 2 MG/2 ML (VERSED) VIAL ONE (10:22)
--- NOTE | 2018-06-02 11:22 | Progress Note-Post Operative ---
Post-Operative Progess Note Surgeon (s)/[employer] (s) Surgeon LILLY LEE DO [employer]: na Pre-Operative Diagnosis iron def anemia, bloating Post-Operative Diagnosis small cecal mass at appendiceal orrifice, colon polyps Procedure & Operative Findings Date of Procedure 06/02/18 Procedure Performed/Findings egd c biopsy, colonoscopy with cold biopsies cecal mass, hot bx polypectomy x 5 Anesthesia Type per collection advisor Estimated Blood Loss Estimated blood loss (mL): none Specimens/Packing Specimens Removed antrum, cecal mass, descending/sigmoid/rectal polyps LILLY LEE DO Jun 02, 2018 11:22
--- NOTE | 2018-06-02 11:24 | Discharge Inst-Simple/Standard ---
Discharge Inst-Standard Patient Instructions/Follow Up Plan of Care/Instructions/FU: 2 weeks Darline will 3 days then start. Activity as Tolerated: Yes Discharge Diet: Regular Diet LILLY LEE DO Jun 02, 2018 11:24
[2018-06-02 11:30] VITALS: BP 102/56
[2018-06-02 12:00] VITALS: BP 136/64
[2018-06-02 12:25] VITALS: BP 136/64
--- NOTE | 2018-06-02 14:37 | Anesthesia-General Post-Op ---
MAC Patient Condition Mental Status/LOC: Same as Preop Cardiovascular: Satisfactory Nausea/Vomiting: Absent Respiratory: Satisfactory Pain: Controlled Complications: Absent Post Op Complications Complications None Follow Up Care/Instructions Patient Instructions None needed. Anesthesiology Discharge Order Discharge Order Patient is doing well, no complaints, stable vital signs, no apparent adverse anesthesia problems. No complications reported per nursing. LUNA DEMPSEY CRNA Jun 02, 2018 14:37
--- NOTE | 2018-06-02 16:33 | OPERATIVE REPORT ---
DATE OF SERVICE: 06/02/2018 PREOPERATIVE DIAGNOSES: Iron deficiency anemia and bloating. POSTOPERATIVE DIAGNOSES: Small cecal mass at appendiceal orifice, colon polyps, some gastric inflammation. PROCEDURES: EGD with biopsy, colonoscopy with cold biopsy cecal mass and hot biopsy polypectomy x5. ANESTHESIA: Per GAME AGENT. SURGEON: Lilly Gregorio DO ESTIMATED BLOOD LOSS: None. COMPLICATIONS: None. SPECIMENS: Antrum, cecal mass, biopsies in descending, sigmoid and rectal polyps. INDICATIONS: The patient is a 58-year-old female, who was found to have iron deficiency anemia. She also has been having more bloating. She understands risks and benefits of procedure and wished to proceed with procedure. Consent was signed in the chart. PROCEDURE IN DETAIL: The patient was taken to the endoscopy suite, placed in left lateral recumbent position. Timeout was performed. Scope was inserted in the mouth, down the esophagus, stomach and into the duodenum without difficulty. There were no polyps, masses or ulcerations visualized within the duodenum. Scope was slowly retracted back into the stomach and it was further insufflated. Some slight inflammation of the antrum, which biopsy was obtained. Scope was then retroflexed also noting no polyps, masses or ulcerations or any hiatal hernia. Scope was returned to its normal position, slowly withdrawn to the distal esophagus noting no polyps, masses or ulcerations. Scope was slowly retracted back until completely removed. Within the middle of the esophagus, some maybe early varices present. Scope was slowly retracted back until completely removed. Digital rectal exam was performed. There are no polyps, masses, or ulcerations. Scope was inserted in the rectum and advanced all the way to the cecum with minimal difficulty. The ileocecal valve was intubated, had normal appearance of the ileum. Scope was then slowly retracted back into the colon. Prep was adequate. The cecum had a mass that appears to be possibly originating from the appendiceal orifice. Unable to remove it endoscopically. Cold biopsies were obtained. Scope was then slowly retracted back. There were no polyps, masses or ulcerations in the ascending colon or transverse colon. Within the descending colon, a small polyp was present, which hot biopsy polypectomy was performed. Scope was continuously retracted back into the sigmoid, which did have three polyps present, which hot biopsy polypectomy was performed. Scope was continuously retracted back into the rectum where a slightly larger polyp was present, which hot biopsy polypectomy was performed. Scope was retroflexed noting no other pathology. Scope was returned to its normal position, slowly withdrawn until completely removed. The patient tolerated the procedure well without any complications and taken to recovery room in stable condition. RECOMMENDATIONS: The patient will continue on current medications. We will hold Eliquis for 3 days and restart due to the multiple biopsies. The patient will follow up on biopsies. Further recommendations pending results of biopsy. I would also consider getting CT scan of the abdomen and pelvis with IV and oral contrast. Job ID: [id number] DocumentID: [id number] Dictated Date: 06/02/2018 11:28:24 Porcelain Enameler Date: 06/02/2018 16:32:33 Dictated By: LILLY RGEGORIO DO
== END 2018-06-02 12:25 | disposition home or self-care (01) ==
LOC: ENDO 08:56
PROVIDERS: ATTEND Surgery
DX: D12.0 Benign neoplasm of cecum (principal); D12.8 Benign neoplasm of rectum; K63.5 Polyp of colon; K29.70 Gastritis, unspecified, without bleeding; I13.0 Hypertensive heart and chronic kidney disease with heart failure and stage 1 through stage 4 chronic kidney disease, or unspecified chronic kidney disease; I50.9 Heart failure, unspecified; N18.3 Chronic kidney disease, stage 3 (moderate); E11.22 Type 2 diabetes mellitus with diabetic chronic kidney disease; E11.43 Type 2 diabetes mellitus with diabetic autonomic (poly)neuropathy; I25.10 Atherosclerotic heart disease of native coronary artery without angina pectoris; J44.9 Chronic obstructive pulmonary disease, unspecified; K21.9 Gastro-esophageal reflux disease without esophagitis; Z87.891 Personal history of nicotine dependence; Z95.1 Presence of aortocoronary bypass graft; Z79.01 Long term (current) use of anticoagulants; Z79.4 Long term (current) use of insulin; Z79.899 Other long term (current) drug therapy
CPT/HCPCS: 82962; 88305

== ENCOUNTER → 2018-06-30 | Outpatient (CLI) | payer MEDICARE ==
--- NOTE | 2018-06-30 13:36 | Diagnostic Imaging Report ---
INDICATION: Routine screening. COMPARISON: 06/12/2017 and 05/28/2016. TECHNIQUE: 2D and 3D bilateral screening mammography was performed with CAD. FINDINGS: Scattered fibroglandular densities are identified bilaterally. The parenchymal pattern is stable. No mass or malignant appearing microcalcifications are seen. The axillae are unremarkable. IMPRESSION: No mammographic features suspicious for malignancy are identified. ACR BI-RADS Category 1: Negative. Result letter will be mailed to the patient. Note: At least 10% of breast cancer is not imaged by mammography. Dictated by: Dictated on workstation # [id number]
== END ==
LOC: RAD 09:47
PROVIDERS: ATTEND Nurse Practitioner Primary Care
DX: Z12.31 Encounter for screening mammogram for malignant neoplasm of breast (principal)
CPT/HCPCS: 77067

== ENCOUNTER → 2018-07-01 | Outpatient (CLI) | payer MEDICARE ==
[~2018-07-01] MED LIST changes: +IOHEXOL 350 MG/ML 100 ML (OMNIPAQUE 350) VIAL IV ONE; +NS 100 ML (IVPB) BAG IV ONE; +RECEIVED CONTRAST (Hold Metformin) IV SCH
[2018-07-01 08:15] LABS: CREATININE SERUM 1.26 MG/DL (0.60-1.30)
--- NOTE | 2018-07-01 09:14 | Diagnostic Imaging Report ---
PROCEDURE: CT abdomen and pelvis with contrast. TECHNIQUE: Multiple contiguous axial images were obtained through the abdomen and pelvis after administration of intravenous contrast. INDICATION: Anemia. COMPARISON: Comparison is made with prior CT from 09/18/2017. FINDINGS: The lung bases are clear apart from minimal scarring or atelectasis the left lower lobe laterally. No discrete liver mass is seen. Gallbladder is surgically absent. No biliary ductal dilatation is seen. No peripancreatic inflammatory stranding or pancreatic ductal dilatation is seen. No fluid collections are identified. The spleen is unremarkable. No adrenal mass is detected. Kidneys are unremarkable. Aorta is heavily calcified but nonaneurysmal. Small and large bowel loops are normal in caliber. No obstruction is seen. There is no ascites. Bladder and uterus are unremarkable. No definite abdominal or pelvic lymphadenopathy is seen. IMPRESSION: Stable CT of the abdomen and pelvis when compared to the exam from 09/18/2017. No acute feature is detected. Dictated by: Dictated on workstation # [id number]
== END ==
LOC: RAD 07:45
PROVIDERS: ATTEND Surgery
DX: D50.9 Iron deficiency anemia, unspecified (principal)
CPT/HCPCS: 36415; 74177; 82565; 84520

== ENCOUNTER 2018-07-30 08:39 | Outpatient (CLI) | payer MEDICARE ==
[~2018-07-30] VITALS: Ht 177.8 cm; Wt 94.3 kg
[~2018-07-30 08:39] MED LIST changes: -AMLO5TAB7 PO; +AMLO5TAB9 PO; -IOHEXOL 350 MG/ML 100 ML (OMNIPAQUE 350) VIAL IV ONE; +LOSA25TA41 PO; -LOSA25TA6 PO; +LOSA50TA63 PO; -LOSA50TA7 PO; -NS 100 ML (IVPB) BAG IV ONE; -RECEIVED CONTRAST (Hold Metformin) IV SCH
[2018-07-30 08:55] VITALS: BP 114/66
[2018-07-30 09:37] LABS: BASOPHILS % (AUTO) 0 % (0-10); EOSINOPHILS # (AUTO) 0.2 10^3/uL (0.0-0.3); EOSINOPHILS % (AUTO) 3 % (0-10); HEMATOCRIT 42 % (35-52); HEMOGLOBIN 13.3 G/DL (11.5-16.0); LYMPHOCYTES # (AUTO) 1.6 X 10^3 (1.0-4.0); LYMPHOCYTES % (AUTO) 23 % (12-44); MEAN CORPUSCULAR HEMOGLOBIN 26 PG (25-34); MEAN CORPUSCULAR HGB CONC 32 G/DL (32-36); MEAN CORPUSCULAR VOLUME 81 FL (80-99); MEAN PLATELET VOLUME 10.6 FL (7.4-10.4); MONOCYTES # (AUTO) 0.5 X 10^3 (0.0-1.0); MONOCYTES % (AUTO) 8 % (0-12); NEUTROPHILS # (AUTO) 4.8 X 10^3 (1.8-7.8); NEUTROPHILS % (AUTO) 67 % (42-75); PLATELET COUNT 173 10^3/uL (130-400); RED CELL DISTRIBUTION WIDTH 17.8 % (10.0-14.5); WHITE BLOOD COUNT 7.2 10^3/uL (4.3-11.0)
[2018-07-30 09:55] LABS: CALCIUM 9.8 MG/DL (8.5-10.1); CREATININE SERUM 1.22 MG/DL (0.60-1.30); POTASSIUM 4.9 MMOL/L (3.6-5.0)
[2018-07-30] MEDS ORDERED: LOSA50TA63 PO (10:08)
[2018-07-30] MEDS ORDERED: METF-479 PO (10:08)
[2018-07-30] MEDS ORDERED: OMEG-109 PO (10:08)
[2018-07-30] MEDS ORDERED: DRON400T2 PO (10:08)
[2018-07-30] MEDS ORDERED: ATOR20TA66 PO (10:08)
[2018-07-30] MEDS ORDERED: APIX5TAB PO (10:08)
[2018-07-30] MEDS ORDERED: METO50TA15 PO (10:08)
[2018-07-30] MEDS ORDERED: METF500T8 PO (15:30)
[2018-07-30] MEDS ORDERED: ATOR80TA76 PO (15:30)
[2018-07-30] MEDS ORDERED: POTA-51 PO (15:30)
[2018-07-30] MEDS ORDERED: MULT1TAB69 PO (15:38)
[2018-07-30] MEDS ORDERED: NICO-588 TD (15:38)
== END 2018-07-30 09:30 | disposition home or self-care (01) ==
LOC: PREOP 08:39
PROVIDERS: ATTEND Surgery
DX: Z01.812 Encounter for preprocedural laboratory examination (principal); Z11.2 Encounter for screening for other bacterial diseases; D12.6 Benign neoplasm of colon, unspecified
CPT/HCPCS: 36415; 80048; 85025; 87081

== ENCOUNTER 2018-08-06 10:00 | Inpatient (IN) | payer MEDICARE ==
--- NOTE | 2018-07-30 15:39 | NUR ---
HAD A LIST FAXED OVER FROM [facility] AND CALLED THE PATIENT TO GO OVER IT WITH HER. [facility] FILLED: 07-21-18 LOSARTAN 50MG BID #60 (THIS HAS BEEN DECREASED TO 1/2 TAB BID) 07-15-18 METOPROLOL TARTRATE 50MG BID #60 (DECREASED TO 1/2 TAB BID) 07-15-18 MONTELUKAST 10MG HS #30 07-14-18 OMEPRAZOLE 20MG DAILY #30 07-14-18 ATORVASTATIN 80MG DAILY #30 07-07-18 METFORMIN ER 500MG 2 BID #120 06-23-18 HUMALOG KWIKPEN 8 UNITS TID WITH MEALS (THIS HAS INCREASED TO 15 UNITS WITH MEALS) 05-13-18 LEVOTHYROXINE 88MCG DAILY #90 03-03-18 LASIX 40MG DAILY #30 (ONLY TAKES PRN) 01-02-18 POTASSIUM 20MEQ DAILY #30 (ONLY TAKES PRN) 07-28-17 ALPRAZOLAM 0.25MG DAILY PRN #30 (ONLY TAKES PRN BUT HAS BEEN TAKING MORE SINCE THEY TOLD HER SHE WOULD NEED THIS SURGERY) SHE ALSO RECEIVES THE FOLLOWING MEDICATIONS THROUGH THE DIRECTOR OF MATERIALS, THEY ARE MAILED TO HER: MULTAQ 400MG BID ELIQUIS 5MG BID LEVEMIR 32 UNITS BID OTC MEDS: FISH OIL 1200MG 2AM 1 HS IRON 325MG DAILY MTV DAILY NICOTINE PATCH (WANTS THIS WHEN ADMITTED AND WANTS TO CONTINUE IT WHEN DISCHARGED BECAUSE SHE REALLY WANTS TO QUIT SMOKING)
[~2018-08-06] VITALS: Ht 177.8 cm; Wt 94.3 kg
[~2018-08-06 10:00] MED LIST changes: +ATOR20TA66 PO; +ATOR80TA76 PO; +METF-479 PO; +METF500T8 PO; +MULT1TAB69 PO; +NICO-588 TD; +POTA-51 PO
[2018-08-06 10:15] VITALS: BP 115/77
[2018-08-06] MEDS ORDERED: ceFAZolin 2 GM IV Premixed 50 ML IV ONE (10:30)
[2018-08-06] MEDS ORDERED: metroNIDAZOLE 500MG/100ML IVPB 100 ML IV ONE (10:30)
[2018-08-06] MEDS ORDERED: CATHETER FLUSH 10 ML SYR IV PRN (10:45)
[2018-08-06] MEDS: LACTATED RINGERS 1,000 ML IV PRN ×2 (10:45→14:05)
--- NOTE | 2018-08-06 10:48 | Progress Note-Pre Operative ---
Pre-Operative Progress Note H&P Reviewed The H&P was reviewed, patient examined and no changes noted. Date Seen by Provider: Aug 06, 2018 Time Seen by Provider: 10:47 Date H&P Reviewed: Aug 06, 2018 Time H&P Reviewed: 10:47 Pre-Operative Diagnosis: cecal polyp/mass LILLY LEE DO Aug 06, 2018 10:48
[2018-08-06] MEDS ORDERED: SCOPOLAMINE 1.5 MG (TRANSDERM-SCOP) PATCH ONE (11:34)
[2018-08-06] MEDS ORDERED: MIDAZOLAM 2 MG/2 ML (VERSED) VIAL ONE ×2 (11:34→11:42)
[2018-08-06] MEDS ORDERED: ONDANSETRON 4 MG/2 ML (SDV) Z0FRAN ONE ×3 (11:35→15:09)
[2018-08-06] MEDS ORDERED: FAMOTIDINE 20MG/2ML IV (PEPCID) ONE (11:35)
[2018-08-06] MEDS ORDERED: proPOfol 200 MG/20 ML (DIPRIVAN) VIAL IV ONE (11:42)
[2018-08-06] MEDS ORDERED: ROCURONIUM 10 MG/ML 5 ML SYRINGE IV ONE (11:42)
[2018-08-06] MEDS ORDERED: SEVOFLURANE (ULTANE) 15 ML INHAL SOLN ONE (11:42)
[2018-08-06] MEDS ORDERED: GLYCOPYRROLATE 0.2 MG/ML (ROBINUL) 2 ML VIAL ONE (11:42)
[2018-08-06] MEDS ORDERED: LIDOCAINE PF 2% 5 ML (XYLOCAINE) VIAL ONE (11:42)
[2018-08-06] MEDS ORDERED: fentaNYL INJECTION 250 MCG/5 ML AMP ONE (11:42)
[2018-08-06] MEDS ORDERED: NEOSTIGMINE 1 MG/ML 5 ML SYRINGE ONE (11:42)
[2018-08-06] MEDS ORDERED: MIDAZOLAM 2 MG/2 ML (VERSED) VIAL IV ONE (11:45)
[2018-08-06] MEDS ORDERED: ONDANSETRON 4 MG/2 ML (SDV) Z0FRAN IV ONE (11:45)
[2018-08-06] MEDS ORDERED: FAMOTIDINE 20MG/2ML IV (PEPCID) IV ONE (11:45)
[2018-08-06] MEDS ORDERED: SCOPOLAMINE 1.5 MG (TRANSDERM-SCOP) PATCH TOP ONE (11:45)
[2018-08-06] MEDS ORDERED: BUP/EPI 0.5% 1:200,000 (SENSORCAINE) 30 ML VIAL ONE (12:18)
[2018-08-06] MEDS ORDERED: LIDOCAINE 1% INJ 20 ML 20 ML VIAL ONE (12:18)
[2018-08-06] MEDS ORDERED: SUGAMMADEX 500 MG/5 ML VIAL (BRIDION) IV ONE (14:12)
[2018-08-06] MEDS ORDERED: HYDROmorphone 2 MG/ML VIAL (DILAUDID) ONE (14:21)
--- NOTE | 2018-08-06 14:24 | Progress Note-Post Operative ---
Post-Operative Progess Note Surgeon (s)/Revenue Inspector (s) Surgeon LILLY LEE DO Revenue Inspector: Dr. Sr Pre-Operative Diagnosis cecal polyp/mass Post-Operative Diagnosis same Procedure & Operative Findings Date of Procedure 08/06/18 Procedure Performed/Findings right partial colectomy Anesthesia Type gen Estimated Blood Loss Estimated blood loss (mL): min Specimens/Packing Specimens Removed right colon LILLY LEE DO Aug 06, 2018 14:24
[2018-08-06] MEDS ORDERED: ONDANSETRON 4 MG/2 ML (SDV) Z0FRAN IVP PRN (14:30)
[2018-08-06] MEDS ORDERED: HYDROmorphone 2 MG/ML VIAL (DILAUDID) IV ONE (14:30)
[2018-08-06 15:30] VITALS: BP 168/74
[2018-08-06] MEDS: ONDANSETRON 4 MG/2 ML (SDV) Z0FRAN IVP PRN (18:31)
[2018-08-06] MEDS: LACTATED RINGERS 1,000 ML IV SCH ×2 (18:31→22:32)
[2018-08-06] MEDS: morphine INJ 10 MG/ML 1ML (SYR OR VIAL) IVP PRN ×2 (20:06→23:04)
[2018-08-06] MEDS: ceFAZolin 2 GM IV Premixed 50 ML IV SCH (20:06)
[2018-08-06 20:50] VITALS: BP 172/77
[2018-08-06] MEDS: metroNIDAZOLE 500MG/100ML IVPB 100 ML IV SCH (22:15)
--- NOTE | 2018-08-06 22:58 | NUR ---
Dr. Gregorio contacted by this RN to report that pt continues to have coughing fits and BP is staying elevated with SBP in 170's. TORB okay to continue taking home dose 25mg metoprolol PO BID and give first dose now, and okay to start tessalon perles 200mg PO TID PRN for cough. Will continue to monitor.
[2018-08-06 23:53] VITALS: BP 178/74
[2018-08-07] MEDS ORDERED: meTOprolol TARTRATE 25 MG (LOPRESSOR) TABLET ONE (00:18)
[2018-08-07] MEDS: BENZONATATE 100 MG (TESSALON) CAPSULE PO PRN (00:25)
[2018-08-07] MEDS: meTOprolol TARTRATE 50 MG (LOPRESSOR) TAB PO SCH ×3 (00:26→22:08)
[2018-08-07] MEDS: ceFAZolin 2 GM IV Premixed 50 ML IV SCH (03:29)
[2018-08-07] MEDS: LACTATED RINGERS 1,000 ML IV SCH ×2 (03:30→14:04)
[2018-08-07 03:59] VITALS: BP 158/87
[2018-08-07] MEDS: morphine INJ 10 MG/ML 1ML (SYR OR VIAL) IVP PRN ×2 (04:04→09:30)
[2018-08-07] MEDS: metroNIDAZOLE 500MG/100ML IVPB 100 ML IV SCH (05:21)
[2018-08-07 05:43] LABS: HEMOGLOBIN 12.3 G/DL (11.5-16.0); MEAN PLATELET VOLUME 9.7 FL (7.4-10.4); RED CELL DISTRIBUTION WIDTH 17.5 % (10.0-14.5); WHITE BLOOD COUNT 10.3 10^3/uL (4.3-11.0)
[2018-08-07 05:58] LABS: CALCIUM 9.1 MG/DL (8.5-10.1); CREATININE SERUM 1.11 MG/DL (0.60-1.30); MAGNESIUM 1.5 MG/DL (1.8-2.4); PHOSPHORUS 4.9 MG/DL (2.3-4.7); POTASSIUM 4.4 MMOL/L (3.6-5.0)
[2018-08-07 08:00] VITALS: BP 146/82
--- NOTE | 2018-08-07 08:43 | Anesthesia-General Post-Op ---
General Patient Condition Mental Status/LOC: Same as Preop Cardiovascular: Satisfactory Nausea/Vomiting: Absent Respiratory: Satisfactory Pain: Controlled Complications: Absent Post Op Complications Complications None Follow Up Care/Instructions Patient Instructions None needed. Anesthesia/Patient Condition Patient Condition Patient is doing well, no complaints, stable vital signs, no apparent adverse anesthesia problems. No complications reported per nursing. MARJORIE HAIRSTON CRNA Aug 07, 2018 08:43
--- NOTE | 2018-08-07 08:43 | Anesthesia-Regional Post-Op ---
Regional Patient Condition Mental Status: Alert, Oriented x3 Circulation: Same as Pre-Op Headache: Absent Sensation: Full Recovery Motor Block: Absent Post Op Complications Complications None Follow Up Care/Instructions Patient Instructions None needed. Anesthesia/Patient Condition Patient is doing well, no complaints, stable vital signs, no apparent adverse anesthesia problems. No complications reported per nursing. MARJORIE HAIRSTON CRNA Aug 07, 2018 08:43
[2018-08-07] MEDS: NICOTINE PATCH REMOVAL TP SCH (09:16)
[2018-08-07] MEDS: NICOTINE 7 MG (NICODERM) PATCH TD SCH (09:17)
[2018-08-07] MEDS: PANTOPRAZOLE 40 MG (PROTONIX) VIAL IVP SCH (09:17)
[2018-08-07 12:00] VITALS: BP 163/72
[2018-08-07] MEDS: ONDANSETRON 4 MG/2 ML (SDV) Z0FRAN IVP PRN ×2 (12:10→18:39)
[2018-08-07] MEDS ORDERED: RT-ALBUTEROL/IPRATROPIUM 3 ML (DUONEB) VIAL INH PRN (12:30)
--- NOTE | 2018-08-07 12:34 | Consultation (CHS) ---
HPI History of Present Illness: 58 yo F that was taken to surgery of polyp removal yesterday by Dr Gregorio. Patient has a h/o CAD and CABG. Denies any recent intervention or chest pain. States that she takes her medications most of the time. She is a insulin dependent DM and she does not recall her last A1c. She states that she has COPD but that she does not take inhalers every day but has some PRN that she uses. She has a h/o throat and lung Ca. Source: patient, old records Exam Limitations: no limitations Date seen by provider: Aug 07, 2018 Time Seen by Provider: 11:25 Attending Physician Regan Gregorio DO PCP Bev Villalpando MD Consult Date of Admission Aug 06, 2018 at 10:00 Home Medications Home Medications Reviewed patient Home Medication Reconciliation performed by pharmacy medication reconciliations master certified rv technician and/or nursing. Patients Allergies have been reviewed. Allergies Coded Allergies: enalaprilat (Verified Allergy, Severe, anaphylactic, 08/06/18) codeine (Unverified Allergy, Mild, GI UPSET, 08/06/18) haloperidol (Unverified Allergy, Mild, NAUSEA, 08/06/18) TFT-Awbtzu-Ojodpf Hx Patient Social History Alcohol Use: Denies Use Recreational Drug Use: Yes (PAST HISTORY) Type Used: Cigarettes Recent Foreign Travel: No Contact w/other who traveled: No Recent Hopitalizations: No Recent Infectious Disease Expo: No Physical Abuse Screen: No Sexual Abuse: No Immunizations Up To Date Tetanus Booster (TDap): Unknown Date of Pneumonia Vaccine: Jul 27, 2018 Date of Influenza Vaccine: Mar 16, 2018 Past Medical History PMHx: DMII COPD Pancreatitis with stenting x 3 Coronary artery disease s/p quadruple bypass Lung cancer Epiglottic cancer PSurgHx: Cholecystectomy Tonsillectomy CRISTINA lung resection Family Medical History Significant Family History: No Pertinent Family Hx Family History: CHF 19 MOTHER Cardiovascular disease 19 FATHER 19 MOTHER FH: lung cancer 19 FATHER UTERINE CANCER 19 MOTHER Review of Systems (CHC) Constitutional: No no symptoms reported; malaise EENTM: no symptoms reported Respiratory: dyspnea on exertion Cardiovascular: no symptoms reported; No chest pain, No edema, No palpitations Gastrointestinal: abdominal pain, loss of appetite, nausea Genitourinary: no symptoms reported; No dysuria, No frequency, No hematuria : No Musculoskeletal: no symptoms reported Skin: no symptoms reported Psychiatric/Neurological: No Symptoms Reported Reviewed Test Results Reviewed Test Results Lab Laboratory Tests Test 08/07/18 05:35 08/07/18 09:24 Range/Units White Blood Count 10.3 4.3-11.0 10^3/uL Red Blood Count 4.73 4.35-5.85 10^6/uL Hemoglobin 12.3 11.5-16.0 G/DL Hematocrit 40 35-52 % Mean Corpuscular Volume 84 80-99 FL Mean Corpuscular Hemoglobin 26 25-34 PG Mean Corpuscular Hemoglobin Concent 31 L 32-36 G/DL Red Cell Distribution Width 17.5 H 10.0-14.5 % Platelet Count 158 130-400 10^3/uL Mean Platelet Volume 9.7 7.4-10.4 FL Sodium Level 139 135-145 MMOL/L Potassium Level 4.4 3.6-5.0 MMOL/L Chloride Level 105 98-107 MMOL/L Carbon Dioxide Level 28 21-32 MMOL/L Anion Gap 6 5-14 MMOL/L Blood Urea Nitrogen 10 7-18 MG/DL Creatinine 1.11 0.60-1.30 MG/DL Estimat Glomerular Filtration Rate 50 BUN/Creatinine Ratio 9 Glucose Level 158 H 70-105 MG/DL Calcium Level 9.1 8.5-10.1 MG/DL Phosphorus Level 4.9 H 2.3-4.7 MG/DL Magnesium Level 1.5 L 1.8-2.4 MG/DL Glucometer 175 H 70-110 MG/DL Physical Exam-(CHC) Physical Exam Vital Signs VS - Last 72 Hours, by Label 08/06/18 08/06/18 08/06/18 08/06/18 10:15 15:30 18:57 19:30 Temp 98.1 96.0 Pulse 68 81 Resp 16 20 B/P (MAP) 115/77 168/74 (105) Pulse Ox 95 97 O2 Delivery Room Air Nasal Cannula Nasal Cannula Nasal Cannula O2 Flow Rate 4.00 3.00 4.00 08/06/18 08/06/18 08/07/18 08/07/18 20:50 23:53 03:59 08:00 Temp 97.2 97.4 97.5 97.6 Pulse 82 76 59 98 Resp 20 20 20 20 B/P (MAP) 172/77 (108) 178/74 (108) 158/87 (110) 146/82 (103) Pulse Ox 100 97 99 93 O2 Delivery Nasal Cannula Nasal Cannula Nasal Cannula Nasal Cannula O2 Flow Rate 4.00 3.00 3.00 4.00 08/07/18 08:00 O2 Delivery Nasal Cannula O2 Flow Rate 4.00 Capillary Refill : General Appearance: mild distress (currently vomiting) Neck: non-tender, full range of motion, supple Respiratory: chest non-tender, lungs clear, normal breath sounds, no respiratory distress, no accessory muscle use Cardiovascular: normal peripheral pulses, regular rate, rhythm, no murmur Gastrointestinal: soft Back: no CVA tenderness, no vertebral tenderness Extremities: normal range of motion, non-tender, no pedal edema, no calf tenderness, normal capillary refill Neurologic/Psychiatric: rehabilitation tech II-XII nml as tested, no motor/sensory deficits, alert, normal mood/affect, oriented x 3 Skin: normal color Lymphatic: no adenopathy Assessment/Plan Assessment/Plan (1) COPD (chronic obstructive pulmonary disease) Status: Chronic Assessment & Plan: - s/p surgery, encourage IS, Started on MAT protocol with prn treatments Qualifiers: Qualified Codes: J44.9 - Chronic obstructive pulmonary disease, unspecified (2) CAD (coronary artery disease) Status: Chronic Assessment & Plan: - Will restart ASA and Plavix when ok with surgery (3) Insulin dependent diabetes mellitus Status: Chronic Assessment & Plan: - A1c pending, will start SSI A since patient is only on clears, will restart levemir when intake improves (4) Hx of CABG Status: Chronic (5) HTN (hypertension) Status: Chronic Qualifiers: Qualified Codes: I10 - Essential (primary) hypertension Clinical Quality Measures DVT/VTE Risk/Contraindication: Risk Factor Score Per Nursin RFS Level Per Nursing on Admit: 4+=Very High JENIFFER FORD MD Aug 07, 2018 12:33
--- NOTE | 2018-08-07 14:00 | Progress Note ---
Subjective Date Seen by a Provider: Aug 07, 2018 Time Seen by a Provider: 13:57 Subjective/Events-last exam nauseated and some emesis. pain controlled. using IS denies fever sweats chills shortness of breath or chest pain. abdomen swollen. Objective Exam Vital Signs Date Time Temp Pulse Resp B/P (MAP) Pulse Ox O2 Delivery O2 Flow Rate FiO2 08/07/18 12:00 98.9 74 20 163/72 (102) 91 Nasal Cannula 4.00 08/07/18 08:00 Nasal Cannula 4.00 08/07/18 08:00 97.6 98 20 146/82 (103) 93 Nasal Cannula 4.00 08/07/18 03:59 97.5 59 20 158/87 (110) 99 Nasal Cannula 3.00 08/06/18 23:53 97.4 76 20 178/74 (108) 97 Nasal Cannula 3.00 08/06/18 20:50 97.2 82 20 172/77 (108) 100 Nasal Cannula 4.00 08/06/18 19:30 Nasal Cannula 4.00 08/06/18 18:57 Nasal Cannula 3.00 08/06/18 15:30 96.0 81 20 168/74 (105) 97 Nasal Cannula 4.00 I & O 08/07/18 07:00 Intake Total 2450 ml Output Total 925 ml Balance 1525 ml Capillary Refill : General Appearance: No Apparent Distress HEENT: PERRL/EOMI Neck: Non Tender Gastrointestinal: soft, tenderness (incisional tenderness. no signs of infection, small amount of ooze) Extremity: Non Tender Neurologic/Psychiatric: Alert, Oriented x3, No Motor/Sensory Deficits, Normal Mood/Affect Skin: Normal Color, Warm/Dry Lymphatic: No Adenopathy Results Lab Laboratory Tests 08/07/18 05:35: White Blood Count 10.3, Red Blood Count 4.73, Hemoglobin 12.3, Hematocrit 40, Mean Corpuscular Volume 84, Mean Corpuscular Hemoglobin 26, Mean Corpuscular Hemoglobin Concent 31L, Red Cell Distribution Width 17.5H, Platelet Count 158, Mean Platelet Volume 9.7, Sodium Level 139, Potassium Level 4.4, Chloride Level 105, Carbon Dioxide Level 28, Anion Gap 6, Blood Urea Nitrogen 10, Creatinine 1.11, Estimat Glomerular Filtration Rate 50, BUN/Creatinine Ratio 9, Glucose Level 158H, Calcium Level 9.1, Phosphorus Level 4.9H, Magnesium Level 1.5L 08/07/18 09:24: Glucometer 175H Assessment/Plan Assessment/Plan Assessment/Plan s/p right colon resection hypomagnesemia-replace repeat labs n/v -clears as tolerates. encouraged up and walking scd's for dvt prophylaxis no lovenox at this time, with slight oozing from incision Clinical Quality Measures DVT/VTE Risk/Contraindication: Risk Factor Score Per Nursin RFS Level Per Nursing on Admit: 4+=Very High LILLY LEE DO Aug 07, 2018 14:00
[2018-08-07] MEDS: RT-ALBUTEROL/IPRATROPIUM 3 ML (DUONEB) VIAL INH SCH ×2 (14:49→20:50)
[2018-08-07] MEDS: MAGNESIUM 1 GM/100 ML IVPB 100 ML IV SCH ×2 (14:54→16:39)
[2018-08-07 16:55] VITALS: BP 155/84
[2018-08-07] MEDS: inSUlin ASPART (NovoLOG) 1 UNIT/0.01 ML (CHARGE PER UNIT) SC SCH ×2 (18:39→20:55)
[2018-08-07 20:00] VITALS: BP 184/93
[2018-08-07] MEDS ORDERED: PROMETHAZINE INJ 25 MG/ML (PHENERGAN) AMP IVP PRN (20:00)
[2018-08-07] MEDS ORDERED: ALPRAZolam 0.25 MG (XANAX) TAB PO NR (20:00)
--- NOTE | 2018-08-07 20:49 | NUR ---
THIS RN CALLED DR. FERNÁNDEZ IN REGARDS TO THE PT BEING UNRESPONSIVE AFTER GIVING PRN PHENERGAN 25 MG IV FOR NAUSEA, OXYGEN SATURATION BEING 54% ON 0.5 L OXYGEN VIA NC, BLOOD PRESSURE 195/107, AND HEART RATE 103. ORDERS RECEIVED TO INCREASE OXYGEN TO 4 L PER NC, HOLD METOPROLOL 25 MG PO UNTIL PT IS ALERT, DC PHENERGAN 25 MG IV PRN Q6H, AND CONTINUE TO MONITOR PT. AFTER INCREASING OXYGEN TO 4 L PER NC OXYGEN SATURATION IS 95%.
--- NOTE | 2018-08-07 22:03 | NUR ---
PT AWAKE AND TALKING TO THIS RN AT THIS TIME. PT REPORTS FEELING SLEEPY. PT APPEARS FATIGUED. OXYGEN SATURATION 97% ON 4L VIA NC. WILL CONTINUE TO MONITOR.
[2018-08-07 23:00] VITALS: BP 168/82
--- NOTE | 2018-08-07 23:30 | NUR ---
THIS RN CALLED DR. LEE IN REGARDS TO THE PT REQUESTING TYLENOL FOR A HEADACHE. ORDERS RECEIVED FOR TYLENOL 650 MG PO PRN Q6H. ORDERS READ BACK AND VERIFIED.
[2018-08-08] MEDS: ACETAMINOPHEN 325 MG TABLET PO PRN ×3 (00:16→21:25)
[2018-08-08] MEDS: LACTATED RINGERS 1,000 ML IV SCH ×4 (00:18→19:31)
[2018-08-08 03:40] VITALS: BP 184/78
[2018-08-08 05:14] LABS: HEMOGLOBIN 11.2 G/DL (11.5-16.0); MEAN PLATELET VOLUME 9.5 FL (7.4-10.4); RED CELL DISTRIBUTION WIDTH 17.5 % (10.0-14.5); WHITE BLOOD COUNT 8.5 10^3/uL (4.3-11.0)
[2018-08-08 05:48] LABS: BUN/CREATININE RATIO 8; CALCIUM 9.1 MG/DL (8.5-10.1); CARBON DIOXIDE 28 MMOL/L (21-32); CHLORIDE 104 MMOL/L (98-107); CREATININE SERUM 0.91 MG/DL (0.60-1.30); GFR ESTIMATED > 60; GLUCOSE 133 MG/DL (70-105); MAGNESIUM 1.6 MG/DL (1.8-2.4); POTASSIUM 4.3 MMOL/L (3.6-5.0); SODIUM 140 MMOL/L (135-145)
[2018-08-08] MEDS: LEVOTHYROXINE 88 MCG (LEVOTHORID) TAB PO SCH (06:24)
[2018-08-08] MEDS: inSUlin ASPART (NovoLOG) 1 UNIT/0.01 ML (CHARGE PER UNIT) SC SCH ×4 (06:25→20:30)
[2018-08-08 08:00] VITALS: BP 189/84
[2018-08-08] MEDS: RT-ALBUTEROL/IPRATROPIUM 3 ML (DUONEB) VIAL INH SCH ×3 (08:00→19:32)
--- NOTE | 2018-08-08 08:32 | Progress Note (SOAP) ---
Subjective Subjective/Events-last exam Patient is currently with not any significant nausea this morning. She does complain of a headache however. She usually takes Tylenol with relief however. She does have her appetite returning. She has been nothing by mouth. Review of Systems Date Seen by Provider: Aug 08, 2018 Time Seen by Provider: 07:45 Objective Exam Last Set of Vital Signs Vital Signs Date Time Temp Pulse Resp B/P (MAP) Pulse Ox O2 Delivery O2 Flow Rate FiO2 08/08/18 03:40 99.2 86 18 184/78 (113) 96 Nasal Cannula 4.00 Capillary Refill : I&O Intake and Output 08/08/18 00:00 Intake Total 1100 ml Output Total 1150 ml Balance -50 ml Intake Oral 1050 ml IV Total 50 ml Output Urine Total 1150 ml # Emeses 2 General: No Acute Distress HEENT: Mucous Memb Moist/[place] Neck: Supple Lungs: Clear to Auscultation Heart: Regular Rate Skin: No Rashes Neuro: Normal Gait, Normal Speech Results/Procedures Lab Laboratory Tests 08/07/18 09:24: Glucometer 175H 08/07/18 17:17: Glucometer 182H 08/07/18 20:41: Glucometer 168H 08/08/18 05:05: White Blood Count 8.5, Red Blood Count 4.33L, Hemoglobin 11.2L, Hematocrit 36, Mean Corpuscular Volume 84, Mean Corpuscular Hemoglobin 26, Mean Corpuscular Hemoglobin Concent 31L, Red Cell Distribution Width 17.5H, Platelet Count 163, Mean Platelet Volume 9.5, Sodium Level 140, Potassium Level 4.3, Chloride Level 104, Carbon Dioxide Level 28, Anion Gap 8, Blood Urea Nitrogen 7, Creatinine 0.91, Estimat Glomerular Filtration Rate > 60, BUN/Creatinine Ratio 8, Glucose Level 133H, Calcium Level 9.1, Magnesium Level 1.6L Assessment/Plan Assessment/Plan Assessment & Plan 1. Status post surgery with removal of adenoma of colon 2. Nausea and vomiting post surgical -Patient is intolerant to Phenergan and should be added to allergy list. 3. Headache believe this is stress or vascular -Patient will again utilize Tylenol and if ineffective on relieving headache she will receive Lortab. (1) COPD (chronic obstructive pulmonary disease) Status: Chronic Assessment & Plan: - s/p surgery, encourage IS, Started on MAT protocol with prn treatments 08/08: Stable Qualifiers: Qualified Codes: J44.9 - Chronic obstructive pulmonary disease, unspecified (2) CAD (coronary artery disease) Status: Chronic Assessment & Plan: - Will restart ASA and Plavix when ok with surgery (3) Insulin dependent diabetes mellitus Status: Chronic Assessment & Plan: - A1c pending, will start SSI A since patient is only on clears, will restart levemir when intake improves (4) Hx of CABG Status: Chronic (5) HTN (hypertension) Status: Chronic Qualifiers: Qualified Codes: I10 - Essential (primary) hypertension Clinical Quality Measures DVT/VTE Risk/Contraindication: Risk Factor Score Per Nursin RFS Level Per Nursing on Admit: 4+=Very High KIARA FERNÁNDEZ MD Aug 08, 2018 08:31
--- NOTE | 2018-08-08 09:44 | Progress Note ---
Subjective Date Seen by a Provider: Aug 08, 2018 Time Seen by a Provider: 09:42 Subjective/Events-last exam Patient sitting in chair. Nausea last night and better today. Intolerant to Phenergan given last night. Ambulated this morning. Tolerating some clears this morning. Her abdomen is distended. Denies fever sweats chills shortness of breath or chest pain today. Pain controlled. Objective Exam Vital Signs Date Time Temp Pulse Resp B/P (MAP) Pulse Ox O2 Delivery O2 Flow Rate FiO2 08/08/18 03:40 99.2 86 18 184/78 (113) 96 Nasal Cannula 4.00 08/07/18 23:00 99.7 107 22 168/82 (110) 95 Nasal Cannula 4.00 08/07/18 20:50 96 Nasal Cannula 4.00 08/07/18 20:45 Nasal Cannula 4.00 08/07/18 20:00 99.8 96 23 184/93 (123) 96 Nasal Cannula 4.00 08/07/18 16:55 99.0 68 20 155/84 (107) 92 Room Air 08/07/18 14:49 98 Nasal Cannula 1.50 08/07/18 12:00 98.9 74 20 163/72 (102) 91 Nasal Cannula 4.00 I & O 08/08/18 07:00 Intake Total 1100 ml Output Total 875 ml Balance 225 ml Capillary Refill : General Appearance: No Apparent Distress HEENT: PERRL/EOMI Neck: Non Tender Gastrointestinal: soft, distended, tenderness (incisional tenderness. no signs of infection, small amount of ooze at incision (minimal)) Extremity: Non Tender Neurologic/Psychiatric: Alert, Oriented x3, No Motor/Sensory Deficits, Normal Mood/Affect Skin: Normal Color, Warm/Dry Lymphatic: No Adenopathy Results Lab Laboratory Tests 08/07/18 17:17: Glucometer 182H 08/07/18 20:41: Glucometer 168H 08/08/18 05:05: White Blood Count 8.5, Red Blood Count 4.33L, Hemoglobin 11.2L, Hematocrit 36, Mean Corpuscular Volume 84, Mean Corpuscular Hemoglobin 26, Mean Corpuscular Hemoglobin Concent 31L, Red Cell Distribution Width 17.5H, Platelet Count 163, Mean Platelet Volume 9.5, Sodium Level 140, Potassium Level 4.3, Chloride Level 104, Carbon Dioxide Level 28, Anion Gap 8, Blood Urea Nitrogen 7, Creatinine 0.91, Estimat Glomerular Filtration Rate > 60, BUN/Creatinine Ratio 8, Glucose Level 133H, Calcium Level 9.1, Magnesium Level 1.6L Assessment/Plan Assessment/Plan Assessment/Plan s/p right colon resection hypomagnesemia-replace repeat labs n/v -clears as tolerates. encouraged up and walking scd's for dvt prophylaxis no lovenox at this time, with slight oozing from incision Clinical Quality Measures DVT/VTE Risk/Contraindication: Risk Factor Score Per Nursin RFS Level Per Nursing on Admit: 4+=Very High LILLY LEE DO Aug 08, 2018 09:44
[2018-08-08] MEDS ORDERED: MAGNESIUM 1 GM/100 ML IVPB 100 ML IV ONE (09:45)
[2018-08-08] MEDS: NICOTINE PATCH REMOVAL TP SCH (09:57)
[2018-08-08] MEDS: PANTOPRAZOLE 40 MG (PROTONIX) VIAL IVP SCH (09:58)
[2018-08-08] MEDS: NICOTINE 7 MG (NICODERM) PATCH TD SCH (09:58)
[2018-08-08] MEDS: meTOprolol TARTRATE 50 MG (LOPRESSOR) TAB PO SCH ×2 (09:58→20:30)
--- NOTE | 2018-08-08 09:58 | NUR ---
UNABLE TO SCAN MEDS THIS MORNING - SCANNER NOT WORKING ROOM - PUTTING IN WORK ORDER
[2018-08-08] MEDS: HYDROcodone/APAP 5 MG/325 MG (LORTAB) TAB PO PRN ×3 (10:10→17:34)
[2018-08-08] MEDS: BENZONATATE 100 MG (TESSALON) CAPSULE PO PRN (10:11)
[2018-08-08 12:00] VITALS: BP 172/74
[2018-08-08 16:09] VITALS: BP 189/86
[2018-08-08 20:23] VITALS: BP 178/96
--- NOTE | 2018-08-08 21:49 | NUR ---
THIS RN CONTACTED DR. LEE IN REGARDS TO THE PT VOMITING. ORDERS RECEIVED FOR A STAT KUB 1 VIEW AND TO MONITOR FOR CONTINUED NAUSEA VOMITING. ORDERS READ BACK AND VERIFIED. WILL CONTINUE TO MONITOR.
[2018-08-09] VITALS (8 sets, daily range): BP systolic 150–197; BP diastolic 72–100
[2018-08-09] MEDS: LACTATED RINGERS 1,000 ML IV SCH ×3 (04:09→21:11)
[2018-08-09] MEDS: ACETAMINOPHEN 325 MG TABLET PO PRN (05:34)
--- NOTE | 2018-08-09 05:39 | NUR ---
THIS RN CALLED DR. LEE IN REGARDS TO THE PT'S BLOOD PRESSURE BEING 188/84 MANUALLY AND PT REQUESTING XANAX. ORDERS RECEIVED FOR LOSARTAN 25 MG PO BID START NOW AND XANAX 0.25 MG PO DAILY PRN ANXIETY. ORDERS READ BACK AND VERIFIED.
[2018-08-09 05:44] LABS: HEMOGLOBIN 12.2 G/DL (11.5-16.0); MEAN PLATELET VOLUME 9.9 FL (7.4-10.4); WHITE BLOOD COUNT 8.4 10^3/uL (4.3-11.0)
[2018-08-09] MEDS ORDERED: LOSARTAN 25 MG (COZAAR) TAB PO SCH (05:45)
[2018-08-09] MEDS ORDERED: ALPRAZolam 0.25 MG (XANAX) TAB PO PRN (05:45)
[2018-08-09 05:52] LABS: BUN/CREATININE RATIO 7; CALCIUM 9.8 MG/DL (8.5-10.1); CARBON DIOXIDE 31 MMOL/L (21-32); CHLORIDE 99 MMOL/L (98-107); CREATININE SERUM 0.82 MG/DL (0.60-1.30); GFR ESTIMATED > 60; GLUCOSE 154 MG/DL (70-105); MAGNESIUM 1.6 MG/DL (1.8-2.4); POTASSIUM 3.8 MMOL/L (3.6-5.0); SODIUM 140 MMOL/L (135-145)
[2018-08-09] MEDS: inSUlin ASPART (NovoLOG) 1 UNIT/0.01 ML (CHARGE PER UNIT) SC SCH ×4 (06:11→21:11)
[2018-08-09] MEDS: LEVOTHYROXINE 88 MCG (LEVOTHORID) TAB PO SCH (06:11)
--- NOTE | 2018-08-09 07:24 | Diagnostic Imaging Report ---
INDICATION: Colon resection, postop. COMPARISON: None. FINDINGS: 2 views of the abdomen demonstrate nondistended bowel gas pattern. Vascular skin clips are seen in the midline. Cholecystectomy clips are present. There is no unexpected postoperative foreign body. IMPRESSION: Nondistended bowel gas pattern. Dictated by: Dictated on workstation # [id number]
[2018-08-09] MEDS: PANTOPRAZOLE 40 MG (PROTONIX) VIAL IVP SCH (08:55)
[2018-08-09] MEDS: meTOprolol TARTRATE 50 MG (LOPRESSOR) TAB PO SCH ×2 (08:56→21:11)
[2018-08-09] MEDS: NICOTINE PATCH REMOVAL TP SCH (08:57)
--- NOTE | 2018-08-09 09:01 | Progress Note (SOAP) ---
Subjective Subjective/Events-last exam Patient is in good spirits this morning. We discussed her blood pressure and how the systolic is elevated. She normally reports taking metoprolol along with losartan at home at a dosage equal to 50 mg total for the day of each. Review of Systems Date Seen by Provider: Aug 09, 2018 Time Seen by Provider: 07:15 Objective Exam Last Set of Vital Signs Vital Signs Date Time Temp Pulse Resp B/P (MAP) Pulse Ox O2 Delivery O2 Flow Rate FiO2 08/09/18 05:35 188/84 (118) 08/09/18 04:25 97.9 85 20 98 Nasal Cannula 4.00 Capillary Refill : I&O Intake and Output 08/09/18 00:00 Intake Total 2170 ml Output Total 1250 ml Balance 920 ml Intake Oral 870 ml IV Total 1300 ml Output Urine Total 1250 ml # Voids 7 General: No Acute Distress Lungs: Clear to Auscultation Heart: Regular Rate Abdomen: Normal Bowel Sounds Results/Procedures Lab Laboratory Tests 08/08/18 16:11: Glucometer 131H 08/08/18 20:22: Glucometer 212H 08/09/18 05:30: White Blood Count 8.4, Red Blood Count 4.68, Hemoglobin 12.2, Hematocrit 39, Mean Corpuscular Volume 84, Mean Corpuscular Hemoglobin 26, Mean Corpuscular Hemoglobin Concent 31L, Red Cell Distribution Width 17.0H, Platelet Count 148, Mean Platelet Volume 9.9, Sodium Level 140, Potassium Level 3.8, Chloride Level 99, Carbon Dioxide Level 31, Anion Gap 10, Blood Urea Nitrogen 6L, Creatinine 0.82, Estimat Glomerular Filtration Rate > 60, BUN/Creatinine Ratio 7, Glucose Level 154H, Calcium Level 9.8, Magnesium Level 1.6L Assessment/Plan Assessment/Plan Assessment & Plan 1. Status post surgery with removal of adenoma of colon 2. Nausea and vomiting post surgical -Patient is intolerant to Phenergan and should be added to allergy list. 3. Headache believe this is stress or vascular -Patient will again utilize Tylenol and if ineffective on relieving headache she will receive Lortab. (1) COPD (chronic obstructive pulmonary disease) Status: Chronic Assessment & Plan: - s/p surgery, encourage IS, Started on MAT protocol with prn treatments 08/08: Stable Qualifiers: Qualified Codes: J44.9 - Chronic obstructive pulmonary disease, unspecified (2) CAD (coronary artery disease) Status: Chronic Assessment & Plan: - Will restart ASA and Plavix when ok with surgery (3) Insulin dependent diabetes mellitus Status: Chronic Assessment & Plan: - A1c pending, will start SSI A since patient is only on clears, will restart levemir when intake improves (4) Hx of CABG Status: Chronic (5) HTN (hypertension) Status: Chronic Assessment & Plan: 08/09: At this point her metoprolol is left at 25 mg twice daily. She however had her losartan increased to 50 mg twice daily. Qualifiers: Qualified Codes: I10 - Essential (primary) hypertension Clinical Quality Measures DVT/VTE Risk/Contraindication: Risk Factor Score Per Nursin RFS Level Per Nursing on Admit: 4+=Very High KIARA FERNÁNDEZ MD Aug 09, 2018 09:01
[2018-08-09] MEDS: RT-ALBUTEROL/IPRATROPIUM 3 ML (DUONEB) VIAL INH SCH ×4 (09:36→20:21)
[2018-08-09] MEDS: LOSARTAN 50 MG (COZAAR) TAB PO SCH ×2 (10:40→21:10)
[2018-08-09] MEDS: NICOTINE 7 MG (NICODERM) PATCH TD SCH (10:42)
[2018-08-10 03:30] VITALS: BP 188/109
--- NOTE | 2018-08-10 03:43 | NUR ---
THIS RN CALLED DR. FERNÁNDEZ IN REGARDS TO THE PT'S BLOOD PRESSURE BEING 188/98 MANUALLY WITH A HEART RATE OF 84, AND PT ASYMPTOMATIC. NO NEW ORDERS AT THIS TIME.
[2018-08-10 05:12] LABS: HEMOGLOBIN 11.6 G/DL (11.5-16.0); MEAN PLATELET VOLUME 9.7 FL (7.4-10.4); WHITE BLOOD COUNT 6.2 10^3/uL (4.3-11.0)
[2018-08-10] MEDS: LACTATED RINGERS 1,000 ML IV SCH (05:32)
[2018-08-10 05:41] LABS: BUN/CREATININE RATIO 12; CALCIUM 9.7 MG/DL (8.5-10.1); CARBON DIOXIDE 32 MMOL/L (21-32); CHLORIDE 102 MMOL/L (98-107); CREATININE SERUM 0.85 MG/DL (0.60-1.30); GFR ESTIMATED > 60; GLUCOSE 145 MG/DL (70-105); MAGNESIUM 1.4 MG/DL (1.8-2.4); SODIUM 143 MMOL/L (135-145)
[2018-08-10] MEDS: inSUlin ASPART (NovoLOG) 1 UNIT/0.01 ML (CHARGE PER UNIT) SC SCH ×2 (05:55→11:38)
[2018-08-10] MEDS: LEVOTHYROXINE 88 MCG (LEVOTHORID) TAB PO SCH (05:55)
[2018-08-10 08:00] VITALS: BP 199/94
[2018-08-10] MEDS: meTOprolol TARTRATE 50 MG (LOPRESSOR) TAB PO SCH (08:33)
[2018-08-10] MEDS: NICOTINE PATCH REMOVAL TP SCH (08:33)
[2018-08-10] MEDS: PANTOPRAZOLE 40 MG (PROTONIX) VIAL IVP SCH (08:33)
[2018-08-10] MEDS: LOSARTAN 50 MG (COZAAR) TAB PO SCH (08:33)
--- NOTE | 2018-08-10 08:56 | Progress Note-Hospitalist ---
Subjective HPI/CC On Admission Date Seen by Provider: Aug 10, 2018 Time Seen by Provider: 09:00 Subjective/Events-last exam Pt doing well. Restarted her on all of her home medicine as she requested. Spoke with Dr. Gregorio and he will discharge her. Has resumed bowel function and eating and drinking well. Reviewed all labs and meds. Review of Systems General: Fatigue Gastrointestinal: Abdominal Pain Objective Exam Vital Signs Vital Signs Date Time Temp Pulse Resp B/P (MAP) Pulse Ox O2 Delivery O2 Flow Rate FiO2 08/10/18 14:15 70 16 152/71 95 Room Air 08/10/18 12:00 97.5 2.00 Capillary Refill : General Appearance: No Apparent Distress HEENT: PERRL/EOMI, TMs Normal Neck: Non Tender Respiratory: Chest Non Tender, Lungs Clear, Normal Breath Sounds, No Accessory Muscle Use, No Respiratory Distress Cardiovascular: Regular Rate, Rhythm, No Edema, No Gallop, No JVD, No Murmur, Normal Peripheral Pulses Extremity: Non Tender Neurologic/Psychiatric: Alert, Oriented x3, No Motor/Sensory Deficits, Normal Mood/Affect Skin: Normal Color, Warm/Dry Lymphatic: No Adenopathy Results/Procedures Lab Laboratory Tests 08/10/18 05:00 Patient resulted labs reviewed. Assessment/Plan Assessment and Plan Assess & Plan/Chief Complaint Assessment: Colon adenoma Post op ileus Hypothyroidism HTN Smoker Plan: Restart home meds Pain control Diagnosis/Problems Diagnosis/Problems (1) Serrated adenoma of colon Status: Acute (2) COPD (chronic obstructive pulmonary disease) Status: Chronic Qualifiers: COPD type: unspecified COPD Qualified Codes: J44.9 - Chronic obstructive pulmonary disease, unspecified (3) Insulin dependent diabetes mellitus Status: Chronic (4) CAD (coronary artery disease) Status: Chronic Qualifiers: Coronary Disease-Associated Artery/Lesion type: [place] artery [place] vs. transplanted heart: [place] heart Associated angina: without angina Qualified Codes: I25.10 - Atherosclerotic heart disease of [place] coronary artery without angina pectoris (5) HTN (hypertension) Status: Chronic Qualifiers: Hypertension type: essential hypertension Qualified Codes: I10 - Essential (primary) hypertension (6) Hx of CABG Status: Chronic Clinical Quality Measures DVT/VTE Risk/Contraindication: Risk Factor Score Per Nursin RFS Level Per Nursing on Admit: 4+=Very High MAIK AMAYA DO Aug 10, 2018 08:56
--- NOTE | 2018-08-10 10:03 | Progress Note ---
Subjective Date Seen by a Provider: Aug 09, 2018 Time Seen by a Provider: 09:11 Subjective/Events-last exam feeling better this morning. had nausea and headache last night. Passing flatus and some bowel movement. Denies fever sweats chills shortness of breath or chest pain. Objective Exam Vital Signs Date Time Temp Pulse Resp B/P (MAP) Pulse Ox O2 Delivery O2 Flow Rate FiO2 08/10/18 08:00 97.8 90 16 199/94 (129) 95 Nasal Cannula 2.00 08/10/18 03:30 98.4 84 18 188/109 (135) 97 Nasal Cannula 2.00 08/09/18 23:22 98.7 94 26 171/72 (105) 94 Nasal Cannula 2.00 08/09/18 20:21 94 Room Air 08/09/18 20:00 Room Air 08/09/18 19:51 98.5 106 20 150/81 (104) 92 Room Air 08/09/18 16:05 98.1 79 24 161/88 (112) 96 Room Air 08/09/18 13:53 91 Room Air 08/09/18 12:00 96.6 61 21 181/80 (113) 93 Nasal Cannula 4.00 I & O 08/10/18 07:00 Intake Total 3060 ml Output Total 2025 ml Balance 1035 ml Capillary Refill : General Appearance: No Apparent Distress HEENT: PERRL/EOMI Neck: Non Tender Gastrointestinal: soft, distended (less), tenderness (incisional tenderness. no signs of infection) Extremity: Non Tender Neurologic/Psychiatric: Alert, Oriented x3, No Motor/Sensory Deficits, Normal Mood/Affect Skin: Normal Color, Warm/Dry Lymphatic: No Adenopathy Results Lab Laboratory Tests 08/09/18 11:04: Glucometer 174H 08/09/18 16:15: Glucometer 147H 08/09/18 19:59: Glucometer 381H 08/10/18 05:00: White Blood Count 6.2, Red Blood Count 4.36, Hemoglobin 11.6, Hematocrit 36, Mean Corpuscular Volume 84, Mean Corpuscular Hemoglobin 27, Mean Corpuscular Hemoglobin Concent 32, Red Cell Distribution Width 17.0H, Platelet Count 160, Mean Platelet Volume 9.7, Sodium Level 143, Potassium Level 4.0, Chloride Level 102, Carbon Dioxide Level 32, Anion Gap 9, Blood Urea Nitrogen 10, Creatinine 0.85, Estimat Glomerular Filtration Rate > 60, BUN/Creatinine Ratio 12, Glucose Level 145H, Calcium Level 9.7, Magnesium Level 1.4L Assessment/Plan Assessment/Plan Assessment/Plan s/p right colon resection hypomagnesemia n/v -clears as tolerates. encouraged up and walking scd's for dvt prophylaxis no lovenox at this time if no more nausea and tolerating clears likely advance diet this evening Clinical Quality Measures DVT/VTE Risk/Contraindication: Risk Factor Score Per Nursin RFS Level Per Nursing on Admit: 4+=Very High LILLY LEE DO Aug 10, 2018 10:03
[2018-08-10] MEDS: RT-ALBUTEROL/IPRATROPIUM 3 ML (DUONEB) VIAL INH SCH (10:08)
[2018-08-10] MEDS ORDERED: ALPRAZolam 0.25 MG (XANAX) TAB PO PRN (10:15)
[2018-08-10] MEDS ORDERED: NICOTINE 21 MG (NICODERM) PATCH TD SCH (10:18)
[2018-08-10] MEDS ORDERED: inSUlin ASPART (NovoLOG) 1 UNIT/0.01 ML (CHARGE PER UNIT) SQ SCH (11:00)
[2018-08-10] MEDS: MAGNESIUM 1 GM/100 ML IVPB 100 ML IV SCH ×2 (11:38→11:39)
[2018-08-10 12:00] VITALS: BP 149/70
--- NOTE | 2018-08-10 12:42 | Discharge Inst-Simple/Standard ---
Discharge Inst-Standard Patient Instructions/Follow Up Plan of Care/Instructions/FU: F/u Darline 2 weeks. Pulmonary rehab referral. Activity as Tolerated: No Discharge Diet: Soft Diet Other Inst to Patient Follow up Appt: Make appointment for 2 week. Instructions: No lifting greater than 10 pounds. No strenuous activity. May shower, no tub bath or soaking. Use incentive spirometer at home as directed. No Smoking Skin/Wound Care: May remove bandages, or change daily if needed. Keep area clean and dry. Symptoms to Report: Appetite Changes, Extremity Discoloration, Numbness/Tingling, Swelling Increased , Bleeding Excessive, Eyesight Changes, Pain Increased, Urine Color Change, Constipation(Persistent), Fever over 101 degree F, Pain/Pressure in chest, Urinating Difficulty, Cough Up/Vomit Blood, Heart Beat Irreg/Pounding, Pain/ Pressure in jaw, Vaginal Bleeding Increase, Cramps in feet or legs, Lightheadedness, Pain/Pressure in shoulder, Diarrhea(Persistent), Memory Changes Suddenly, Questions/Concerns, Weight gain consecutive days, Dizziness/ Fainting, Nausea/Vomiting, Shortness of Breath, Weight gain over 2 pounds If questions or concerns contact your physician Or seek help at emergency department. LILLY LEE DO Aug 10, 2018 12:41
--- NOTE | 2018-08-10 12:46 | Progress Note ---
Subjective Date Seen by a Provider: Aug 10, 2018 Time Seen by a Provider: 12:42 Subjective/Events-last exam Patient feeling well. Not taking any pain medications. No n/v. tolerating diet. +flatus and bm wanting to go home. denies fever sweats chills shortness of breath or chest pain. Objective Exam Vital Signs Date Time Temp Pulse Resp B/P (MAP) Pulse Ox O2 Delivery O2 Flow Rate FiO2 08/10/18 10:08 95 Room Air 08/10/18 08:33 Room Air 08/10/18 08:00 97.8 90 16 199/94 (129) 95 Nasal Cannula 2.00 08/10/18 03:30 98.4 84 18 188/109 (135) 97 Nasal Cannula 2.00 08/09/18 23:22 98.7 94 26 171/72 (105) 94 Nasal Cannula 2.00 08/09/18 20:21 94 Room Air 08/09/18 20:00 Room Air 08/09/18 19:51 98.5 106 20 150/81 (104) 92 Room Air 08/09/18 16:05 98.1 79 24 161/88 (112) 96 Room Air 08/09/18 13:53 91 Room Air I & O 08/10/18 07:00 Intake Total 3060 ml Output Total 2025 ml Balance 1035 ml Capillary Refill : General Appearance: No Apparent Distress HEENT: PERRL/EOMI Neck: Non Tender Gastrointestinal: soft, distended (less), tenderness (minimal incisional tenderness. no signs of infection) Extremity: Non Tender Neurologic/Psychiatric: Alert, Oriented x3, No Motor/Sensory Deficits, Normal Mood/Affect Skin: Normal Color, Warm/Dry Lymphatic: No Adenopathy Results Lab Laboratory Tests 08/09/18 16:15: Glucometer 147H 08/09/18 19:59: Glucometer 381H 08/10/18 05:00: White Blood Count 6.2, Red Blood Count 4.36, Hemoglobin 11.6, Hematocrit 36, Mean Corpuscular Volume 84, Mean Corpuscular Hemoglobin 27, Mean Corpuscular Hemoglobin Concent 32, Red Cell Distribution Width 17.0H, Platelet Count 160, Mean Platelet Volume 9.7, Sodium Level 143, Potassium Level 4.0, Chloride Level 102, Carbon Dioxide Level 32, Anion Gap 9, Blood Urea Nitrogen 10, Creatinine 0.85, Estimat Glomerular Filtration Rate > 60, BUN/Creatinine Ratio 12, Glucose Level 145H, Calcium Level 9.7, Magnesium Level 1.4L 08/10/18 10:10: Glucometer 241H 08/10/18 11:14: Glucometer 269H Assessment/Plan Assessment/Plan Assessment/Plan s/p right colon resection hypomagnesemia-replace n/v - resolved HTN on home meds encouraged up and walking discussed with Dr. Tal askew to [facility]. Clinical Quality Measures DVT/VTE Risk/Contraindication: Risk Factor Score Per Nursin RFS Level Per Nursing on Admit: 4+=Very High LILLY LEE DO Aug 10, 2018 12:45
[2018-08-10 14:15] VITALS: BP 152/71
[2018-08-10] MEDS ORDERED: metFORMIN XR 500 MG (GLUCOPHAGE XR) TAB PO SCH (17:00)
[2018-08-10] MEDS ORDERED: DRONEDARONE TABLET 400 MG TABLET PO SCH (21:00)
[2018-08-10] MEDS ORDERED: inSUlin DETERMIR 1 UNIT/0.01 ML (LEVEMIR) CHARGE PER UNIT SQ SCH (21:00)
[2018-08-10] MEDS ORDERED: MONTELUKAST 10 MG (SINGULAIR) TAB PO SCH (21:00)
[2018-08-10] MEDS ORDERED: LOSARTAN 25 MG (COZAAR) TAB PO SCH (21:00)
--- NOTE | 2018-08-11 01:44 | OPERATIVE REPORT ---
DATE OF SERVICE: 08/06/2018 PREOPERATIVE DIAGNOSIS: Cecal polyp/mass. POSTOPERATIVE DIAGNOSIS: Cecal polyp/mass. PROCEDURE: Right partial colectomy. SURGEON: Lilly Gregorio DO CHASSIS DRIVER: Dr. Sr, assisted in retraction, dissection and closure. ANESTHESIA: General. ESTIMATED BLOOD LOSS: Minimal. COMPLICATIONS: None. SPECIMEN: Right colon. INDICATIONS: The patient is a 58-year-old female with a cecal polyp at the appendiceal orifice, which also with questionable mass in the appendix. The patient was discussed risks and benefits of having procedure performed. She understands risks and benefits of procedure and wished to proceed with procedure. Consent was signed in the chart. DESCRIPTION OF PROCEDURE: The patient was taken to the operating suite. She was prepped and draped in sterile fashion. Surgical pause was performed. Small incision was made around the umbilicus at the midline for hand port. A hand was inserted through the incision and the cecum and right colon was floppy and was able to be mobilized up through this portion of the incision; therefore, we did this as an open procedure. The right colon was mobilized along the white line of T[place]. The small bowel was brought up as well. The distal ileum was dissected around with both blunt and cautery dissection. Linear stapler blue load was then fired across the terminal ileum. The colon was then dissected around distal to the cecum with both blunt and cautery dissection and a linear stapler blue reload was then used to fire across this. A LigaSure was then used to divide the mesentery also both proximal and distal to the tumor or polyp was removed. The appendix at the base does look enlarged and firm. The two ends where the small bowel and the colon were divided were then brought together in a [id number]-[id number] anastomosis and created with linear stapler. A 3-0 Vicryl suture was used for crotch stitch. The hemostasis was achieved. The anastomosis was open, patent and viable. The bowel was then returned to its normal position. The fascia was then closed with 1-0 looped PDS. The skin was then closed with vijaya. The patient tolerated procedure well without any complications. She was taken to recovery room in stable condition. Job ID: [id number] DocumentID: [id number] Dictated Date: 08/10/2018 17:09:36 Care Navigator Date: 08/11/2018 00:53:15 Dictated By: LILLY GREGORIO DO [facility] CENTERNoah
--- NOTE | 2018-08-11 01:46 | DISCHARGE SUMMARY ---
DATE OF SERVICE: 08/06/2018 ADMITTING DIAGNOSIS: Cecal polyp/mass, status post right colon resection. DISCHARGE DIAGNOSES: 1. Cecal polyp/mass, status post right colon resection. 2. Hypomagnesemia. 3. Hypertension. ADMITTING PHYSICIAN: Lilly Gregorio DO CONSULTING PHYSICIAN: Dr. Bryant. HOSPITAL COURSE: The patient is a 58-year-old female who was found to have a serrated adenoma at the appendiceal orifice with the appearance of possibly a mass more in the appendix. The patient was discussed risks and benefits of procedure of the right colon resection and she understood and wished to proceed. Procedure was performed on 08/06/2018. The patient postoperatively was admitted to the floor. She was started on clear liquids. She had some nausea and vomiting, which was controlled. This resolved. The patient began ambulating and using incentive spirometer. The patient had some hypomagnesemia throughout hospital course, but she was given replacement. The patient had adequate pain control. The patient began passing flatus and her diet was advanced. The patient's nausea and vomiting, resolved. The patient on 08/10/2018 was doing well. She was tolerating diet. She is not having any significant pain. The patient ready for discharge home. Please see computer for more discharge information: Pathology still pending. Job ID: [id number] DocumentID: [id number] Dictated Date: 08/10/2018 12:48:45 Advertising Designer Date: 08/11/2018 01:46:09 Dictated By: LILLY GREGORIO DO
[2018-08-11] MEDS ORDERED: PANTOPRAZOLE 20 MG TABLET (PROTONIX) PO SCH (09:00)
--- NOTE | 2018-08-14 10:14 | Physician Query Clarification ---
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 Please document a response below. PHYSICIAN RESPONSE Pathology Report Findings: Yes,agree w/path dx as documented In responding to this query, please exercise your independent professional judgment. The purpose of this communication is to more accurately reflect the complexity of your patients condition. The fact that a question is asked does not imply that any particular answer is desired or expected. Thank you for your timely response to this clarification. Requestors name: Mouna Welch THIS PHYSICIAN QUERY FORM IS A PERMANENT PART OF THE MEDICAL RECORD CHAZ WELCH Aug 14, 2018 10:14 LILLY LEE DO Aug 19, 2018 20:42
--- NOTE | 2018-08-14 14:34 | Physician Query-General Query ---
Physician Query-General Query to Physician: Please clarify what was removed during the partial colectomy thank you PHYSICIAN RESPONSE: Based on the clinical findings in the record, please respond to the query above on this document as an addendum. Possible, probable, or questionable diagnosis can be coded for INPATIENTS ONLY. Physician Response: Physician Response portion of ileum, appendix, cecum and portion of ascending colon If you have questions please contact: Behavioral Health Assistant: Mouna Welch Ext: [phone] Thank you for your time and cooperation. Clinical Business Systems Developer/Behavioral Health Assistant This is a permanent part of the medical record CHAZ WELCH Aug 14, 2018 14:34 LILLY LEE DO Aug 19, 2018 20:43
== END 2018-08-10 14:15 | disposition home or self-care (01) | DRG 331 ==
LOC: 4TH 10:00 → SURG 10:01 → 4TH 16:38
PROVIDERS: ADMIT Surgery; ATTEND Surgery
PROC: 0DTJ0ZZ Resection of Appendix, Open Approach (ICD-10-PCS; 2018-08-06)
PROC: 0DBB0ZZ Excision of Ileum, Open Approach (ICD-10-PCS; 2018-08-06)
PROC: 0DBK0ZZ Excision of Ascending Colon, Open Approach (ICD-10-PCS; 2018-08-06)
PROC: 0DTH0ZZ Resection of Cecum, Open Approach (ICD-10-PCS; principal; 2018-08-06 13:01)
DX: C18.1 Malignant neoplasm of appendix (principal); E83.42 Hypomagnesemia; R51 Headache; I25.10 Atherosclerotic heart disease of native coronary artery without angina pectoris; I10 Essential (primary) hypertension; E11.9 Type 2 diabetes mellitus without complications; J44.9 Chronic obstructive pulmonary disease, unspecified; F17.210 Nicotine dependence, cigarettes, uncomplicated; Z85.118 Personal history of other malignant neoplasm of bronchus and lung; Z85.21 Personal history of malignant neoplasm of larynx; Z79.4 Long term (current) use of insulin; Z95.1 Presence of aortocoronary bypass graft
CPT/HCPCS: 36415; 74018; 80048; 82962; 83036; 83735; 84100; 85027; 88309; 94640; 94664

== ENCOUNTER 2018-10-21 11:40 | Outpatient (CLI) | payer MEDICARE, OTHER ==
[2018-10-21] MEDS ORDERED: RT-ALBUTEROL SULF 2.5 MG/3 ML PRE-MIX VIAL ONE (12:00)
[2018-10-21] MEDS ORDERED: RT-ALBUTEROL SULF 2.5 MG/3 ML PRE-MIX VIAL INH ONE (12:00)
[2018-10-21 13:09] LABS: CREATININE SERUM 1.18 MG/DL (0.60-1.30)
--- NOTE | 2018-10-21 14:58 | Diagnostic Imaging Report ---
PROCEDURE: CT chest with contrast only. TECHNIQUE: Multiple contiguous axial images were obtained through the chest after administration of intravenous contrast. Auto Exposure Controls were utilized during the CT exam to meet ALARA standards for radiation dose reduction. INDICATION: Lung cancer. FINDINGS: The previous CT neck, chest, abdomen and pelvis exam of 09/18/2017 failed to show any sign of an acute abnormality. On this exam, there still no evidence for a neoplastic mass. There is no sign of failure, pneumonia or pleural effusion. The previous study did show extrapleural lipomatosis along the posterior aspect of the left upper lobe. That finding is again evident and no different. In the interval since the prior study however a new area of extrapleural lipomatosis has developed along the posterior aspect of the left lower lobe (image 22 of 50). This area measures approximately 1.1 x 6.0 cm. The etiology of this finding is not certain but there is no bony destruction in this area to suggest that this is an aggressive process. The heart size is borderline enlarged and stable when compared to the prior exam. Coronary artery calcifications are again noted. There are sternotomy wires and surgical clips evident as well. The aorta is not abnormally dilated and there is no sign of a dissection. The pulmonary arteries were not fully opacified and consequently difficult to assess. There is no obvious defect to suggest pulmonary embolus. There is no mediastinal or hilar adenopathy. The thyroid gland were visualized is unremarkable. There is no obvious breast mass. The sections through the upper abdomen again show that the liver is of lower density than usually seen. This does suggest fatty metamorphosis. There is no acute abnormality of the upper abdomen. The bone windows are unremarkable for fracture or for a destructive lesion. However there does seem to be increased density within the vertebral body of C7. This may well be secondary to degenerative disease. The possibility of osteoblastic metastatic disease would be less likely but should still be considered. If further imaging is desired, then MRI would be recommended. IMPRESSION: 1. There is no evidence for an acute cardiopulmonary abnormality and there is no sign of metastatic disease to the soft tissues of the thorax. 2. 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 There is no sign of bony destruction in this area to suggest that this is neoplastic in nature. 3. The increased density within the vertebral body of C7 could be due to degenerative disease alone. The possibly that there is neoplastic involvement however should still be considered. Recommendations as above. Dictated by: Dictated on workstation # [id number]
== END 2018-10-21 15:00 | disposition home or self-care (01) ==
LOC: RT 11:40
PROVIDERS: ATTEND Internal Medicine Critical Care Medicine
DX: J43.9 Emphysema, unspecified (principal); R06.02 Shortness of breath; G47.10 Hypersomnia, unspecified; C32.1 Malignant neoplasm of supraglottis; Z72.0 Tobacco use; Z48.89 Encounter for other specified surgical aftercare
CPT/HCPCS: 36415; 71260; 82565; 84520; 94060; 94726; 94729

== ENCOUNTER 2018-12-21 10:05 | Outpatient (RCR) | payer MEDICARE, OTHER ==
[2018-09-28 11:45] LABS: BASOPHILS % (AUTO) 0 % (0-10); EOSINOPHILS # (AUTO) 0.1 10^3/uL (0.0-0.3); EOSINOPHILS % (AUTO) 2 % (0-10); HEMATOCRIT 39 % (35-52); HEMOGLOBIN 12.4 G/DL (11.5-16.0); LYMPHOCYTES # (AUTO) 1.4 X 10^3 (1.0-4.0); LYMPHOCYTES % (AUTO) 20 % (12-44); MEAN CORPUSCULAR HEMOGLOBIN 28 PG (25-34); MEAN CORPUSCULAR HGB CONC 32 G/DL (32-36); MEAN CORPUSCULAR VOLUME 86 FL (80-99); MEAN PLATELET VOLUME 10.2 FL (7.4-10.4); MONOCYTES # (AUTO) 0.5 X 10^3 (0.0-1.0); MONOCYTES % (AUTO) 7 % (0-12); NEUTROPHILS # (AUTO) 4.9 X 10^3 (1.8-7.8); NEUTROPHILS % (AUTO) 71 % (42-75); PLATELET COUNT 174 10^3/uL (130-400); RED CELL DISTRIBUTION WIDTH 16.5 % (10.0-14.5)
[2018-09-28 12:06] LABS: CALCIUM 9.8 MG/DL (8.5-10.1); CREATININE SERUM 1.18 MG/DL (0.60-1.30); POTASSIUM 4.9 MMOL/L (3.6-5.0)
[2018-09-28 12:07] LABS: ALBUMIN 4.1 GM/DL (3.2-4.5); BILIRUBIN,TOTAL 0.6 MG/DL (0.1-1.0); TOTAL PROTEIN 6.8 GM/DL (6.4-8.2)
[~2018-12-21 10:05] MED LIST changes: -CATHETER FLUSH 10 ML SYR IV PRN; -HOLD METFORMIN - RECEIVED CONTRAST 20 ML VIAL IV SCH; -IOHEXOL 350 MG/ML 100 ML (OMNIPAQUE 350) VIAL IV ONE; -NS 100 ML (IVPB) BAG IV ONE
[2018-12-21 10:46] LABS: CREATININE SERUM 1.13 MG/DL (0.60-1.30)
== END 2018-12-27 | disposition home or self-care (01) ==
LOC: ONC 10:05
PROVIDERS: ATTEND Internal Medicine Hematology & Oncology
DX: C18.1 Malignant neoplasm of appendix (principal)
CPT/HCPCS: 36591; 80053; 82565; 82728; 84443; 84520; 85025; 99213

== ENCOUNTER → 2018-12-21 | Outpatient (CLI) | payer MEDICARE, OTHER ==
[~2018-12-21] MED LIST changes: +CATHETER FLUSH 10 ML SYR IV PRN; +HOLD METFORMIN - RECEIVED CONTRAST 20 ML VIAL IV SCH; +IOHEXOL 350 MG/ML 100 ML (OMNIPAQUE 350) VIAL IV ONE; +NS 100 ML (IVPB) BAG IV ONE
--- NOTE | 2018-12-21 12:22 | Diagnostic Imaging Report ---
PROCEDURE: CT chest and abdomen with contrast. TECHNIQUE: Multiple contiguous axial images were obtained through the chest and abdomen after the administration of intravenous contrast. Auto Exposure Controls were utilized during the CT exam to meet ALARA standards for radiation dose reduction. INDICATION: Throat, lung, and colon cancer. FINDINGS: Comparison is 10/21/2018. There has been a left upper lobectomy. No suspicious nodules are seen. No edema or pneumonia. No pleural effusion or pneumothorax. Lungs are moderately emphysematous. Heart size is normal. No pericardial effusion. The aorta is normal in caliber. Left subclavian port catheter is present. There has been a median sternotomy for coronary artery bypass graft. No axillary, supraclavicular, or mediastinal lymphadenopathy. There is lipomatous hypertrophy of the interatrial septum. Liver is normal without focal lesion. Gallbladder is absent. No biliary ductal dilation. Portal vein is patent. There are some calcifications of the pancreas and atrophy in the mid portion, which may represent prior episodes of pancreatitis. This appearance is unchanged from prior exam. The spleen, adrenal glands, and kidneys are normal. No hydronephrosis. No dilated loops of large or small bowel are seen in the abdomen. An anastomotic suture line is noted in the right lower quadrant. There is abundant stool in the hepatic flexure of the colon, but no wall thickening is seen in this location. No abdominal lymphadenopathy. No free fluid or air. There are no suspicious osseous lesions. There is degenerative disc disease in the lumbar spine. There is severe degenerative disc disease in the cervical spine as well. IMPRESSION: 1. No evidence of metastatic disease in the chest or abdomen. Dictated by: Dictated on workstation # [id number]
--- NOTE | 2018-12-21 16:17 | Diagnostic Imaging Report ---
INDICATION: History of esophageal carcinoma and lung carcinoma as well as colon carcinoma. TECHNIQUE: Patient was administered 27.1 mCi of technetium-99m MDP intravenously and whole body imaging was performed after a three-hour delay. COMPARISON: Correlation is made with prior whole body bone scan from 04/05/2016. FINDINGS: Uptake of activity by the axial and appendicular skeleton is seen. There is uptake by the kidneys with excretion into the urinary bladder. There is a focus of uptake in the lateral aspect of the upper left chest. This could be activity within the patient's left port. No bony abnormality at this location on the CT study performed today is identified. There is some abnormal uptake involving the lower cervical spine at approximately C6 or C7, indeterminate. No other suspicious foci are seen. There are degenerative changes at the knees bilaterally. IMPRESSION: 1. Abnormal uptake in lower cervical spine. Correlation with CT or MRI would be useful for further evaluation. 2. Uptake in upper lateral left chest which may represent activity within the patient's left port. No other significant abnormality is seen. Dictated by: Dictated on workstation # [id number]
== END ==
LOC: CARD 10:33
PROVIDERS: ATTEND Nurse Practitioner Adult Health
DX: C18.9 Malignant neoplasm of colon, unspecified (principal); C79.89 Secondary malignant neoplasm of other specified sites; C78.00 Secondary malignant neoplasm of unspecified lung; Z90.2 Acquired absence of lung [part of]; Z95.828 Presence of other vascular implants and grafts; Z95.1 Presence of aortocoronary bypass graft; Z90.49 Acquired absence of other specified parts of digestive tract
CPT/HCPCS: 71260; 74160; 78306

== ENCOUNTER → 2018-12-30 | Outpatient (CLI) | payer MEDICARE ==
[~2018-12-30] MED LIST changes: +GADOBUTROL 10 MMOL/10 ML (GADAVIST) VIAL IV ONE
--- NOTE | 2018-12-30 15:54 | Diagnostic Imaging Report ---
PROCEDURE: MR imaging cervical spine with and without contrast. TECHNIQUE: Multiplanar and multisequence MRI of the cervical spine was performed with and without contrast. INDICATION: History of throat cancer as well as lung cancer and colon cancer. Patient had recent abnormal bone scan demonstrating increased uptake in the cervical spine. Study is performed for further evaluation. COMPARISON: Correlation is made with whole body bone scan from 12/21/2018. FINDINGS: Curvature is normal. There is minimal retrolisthesis of C5 on C6. Multilevel degenerative disc disease is identified with disc space narrowing and marginal spurring. This is most marked at the C4-5, C5-6 and C6-7 levels. C6-7 level does show significant reactive changes in the adjacent endplates. This likely accounts for the area of uptake on bone scan. No definite marrow replacing process is seen to suggest a metastatic lesion. Vague enhancement at this location is noted on postcontrast imaging which is likely on a degenerative basis. The cervical spinal cord demonstrates normal homogeneous signal intensity. No abnormal cord signal is identified. C2-3: Central canal and neural foramina are widely patent. C3-4: Right posterior lateral broad-based disc/osteophyte complex does result in moderate right neural foraminal and lateral recess stenosis. Left neural foramen and central canal are patent. C4-5: Broad-based disc/osteophyte complex indents the ventral thecal sac creating mild to moderate central canal stenosis as well as significant bilateral neural foraminal stenosis. C5-6: Broad-based disc/osteophyte complex produces moderate central canal stenosis. There is also significant bilateral neural foraminal stenosis. C6-7: Broad-based disc/osteophyte complex creates moderate central canal stenosis. There is also significant bilateral neural foraminal stenosis. C7-T1: Unremarkable. IMPRESSION: Severe multilevel cervical spondylosis with multilevel central canal and neural foraminal stenosis described level by level above. This is most prominent at C6-7 level, likely accounting for the bone scan abnormality. No definite evidence of osseous metastatic disease is identified. Dictated by: Dictated on workstation # [id number]
== END ==
LOC: RAD 14:39
PROVIDERS: ATTEND Nurse Practitioner Adult Health
DX: M48.02 Spinal stenosis, cervical region (principal); M47.812 Spondylosis without myelopathy or radiculopathy, cervical region; M50.30 Other cervical disc degeneration, unspecified cervical region; Z85.118 Personal history of other malignant neoplasm of bronchus and lung; Z85.89 Personal history of malignant neoplasm of other organs and systems
CPT/HCPCS: 72156

== ENCOUNTER → 2019-04-16 | Outpatient (CLI) | payer MEDICARE, OTHER ==
[~2019-04-16] MED LIST changes: -GADOBUTROL 10 MMOL/10 ML (GADAVIST) VIAL IV ONE; +METF500T19 PO; -METF500T8 PO; +OMEP-280 PO; -OMEP20CA12 PO
[2019-04-16 08:27] LABS: CREATININE SERUM 1.36 MG/DL (0.60-1.30)
--- NOTE | 2019-04-16 09:48 | Diagnostic Imaging Report ---
CT CHEST WO TECHNIQUE: Multiple contiguous axial images were obtained through the chest without the use of intravenous contrast. All CT scans use one or more of the following dose optimizing techniques: automated exposure control, MA and/or KvP adjustment based on a patient size and exam type, or iterative reconstruction. INDICATION: Shortness of breath. COMPARISON: CT chest of 12/21/2018 FINDINGS: Lungs and airway: No endoluminal nodule within the trachea. Stable postoperative changes of the left upper lobectomy with architectural distortion in the lower left hemithorax. No pulmonary mass or concerning nodule. Pleura: No pleural effusion or pneumothorax. There is a small amount of normal extrapleural fat along the left posterior hemithorax which is likely from prior surgery. Heart and mediastinum: No supraclavicular or axillary lymphadenopathy. No mediastinal, discrete hilar or juxtaphrenic lymphadenopathy. The heart is mildly enlarged without pericardial effusion. Stable postoperative changes of CABG. Normal caliber thoracic aorta. Upper abdomen: No concerning abnormality in the upper abdomen. Musculoskeletal: No worrisome focal osseous lesions. Stable sclerotic changes within the C7 vertebral body which are degenerative in nature. IMPRESSION: 1. Stable postoperative changes of left upper lobectomy. No features of recurrent neoplasm in the chest. 2. The degenerative changes in the C7 vertebral body are degenerative in nature. Dictated by: Dictated on workstation # [id number]
== END ==
LOC: RAD 08:03
PROVIDERS: ATTEND Nurse Practitioner Family
DX: M47.812 Spondylosis without myelopathy or radiculopathy, cervical region (principal); R91.8 Other nonspecific abnormal finding of lung field; R05 Cough; Z98.890 Other specified postprocedural states; Z90.2 Acquired absence of lung [part of]
CPT/HCPCS: 36415; 71250; 82565; 84520

== ENCOUNTER 2019-04-29 15:03 | Outpatient (RCR) | payer MEDICARE, OTHER ==
[~2019-04-29 15:03] MED LIST changes: -METF500T19 PO; +METF500T8 PO; -OMEP-280 PO; +OMEP20CA13 PO
[2019-04-29 15:29] LABS: BASOPHILS % (AUTO) 0 % (0-10); EOSINOPHILS # (AUTO) 0.2 10^3/uL (0.0-0.3); EOSINOPHILS % (AUTO) 2 % (0-10); HEMATOCRIT 42 % (35-52); HEMOGLOBIN 13.8 G/DL (11.5-16.0); LYMPHOCYTES # (AUTO) 2.2 X 10^3 (1.0-4.0); LYMPHOCYTES % (AUTO) 27 % (12-44); MEAN CORPUSCULAR HEMOGLOBIN 29 PG (25-34); MEAN CORPUSCULAR HGB CONC 33 G/DL (32-36); MEAN CORPUSCULAR VOLUME 90 FL (80-99); MEAN PLATELET VOLUME 10.2 FL (7.4-10.4); MONOCYTES # (AUTO) 0.7 X 10^3 (0.0-1.0); MONOCYTES % (AUTO) 9 % (0-12); NEUTROPHILS % (AUTO) 62 % (42-75); PLATELET COUNT 182 10^3/uL (130-400); RED CELL DISTRIBUTION WIDTH 13.9 % (10.0-14.5); WHITE BLOOD COUNT 8.1 10^3/uL (4.3-11.0)
[2019-04-29 15:51] LABS: ALBUMIN 4.4 GM/DL (3.2-4.5); BILIRUBIN,TOTAL 0.7 MG/DL (0.1-1.0); CALCIUM 9.9 MG/DL (8.5-10.1); CREATININE SERUM 1.37 MG/DL (0.60-1.30); POTASSIUM 4.2 MMOL/L (3.6-5.0); TOTAL PROTEIN 7.1 GM/DL (6.4-8.2)
== END 2019-05-06 | disposition home or self-care (01) ==
LOC: ONC 15:03
PROVIDERS: ATTEND Internal Medicine Hematology & Oncology
DX: C18.1 Malignant neoplasm of appendix (principal); Z45.2 Encounter for adjustment and management of vascular access device
CPT/HCPCS: 36591; 80053; 82728; 84443; 85025; 96523

== ENCOUNTER 2019-06-14 08:41 | Outpatient (RCR) | payer MEDICARE, OTHER ==
[~2019-06-14 08:41] MED LIST changes: +METF500T19 PO; -METF500T8 PO; -MONT10TA24 PO; +MONT10TA26 PO; -OMEP20CA13 PO; +OMEP20CA18 PO
[2019-07-26] MEDS ORDERED: DRON400T2 PO (10:29)
[2019-07-26] MEDS ORDERED: CLIN300C11 PO (10:29)
[2019-07-26] MEDS ORDERED: METO-333 PO (10:42)
[2019-07-29] MEDS ORDERED: PRED10TA22 PO (11:16)
[2019-07-29] MEDS ORDERED: NYST1000 PO (11:16)
[2019-07-29] MEDS ORDERED: BENZ100C18 PO (11:16)
[2019-07-29] MEDS ORDERED: IPRA3AMP31 INH (11:16)
[2019-07-29] MEDS ORDERED: AMOX1TAB11 PO (11:16)
[2019-07-29] MEDS ORDERED: FLUC100T6 PO (11:16)
[2019-07-29] MEDS ORDERED: LOSA100T57 PO (11:16)
[2019-07-29] MEDS ORDERED: NICO1PAT34 TD (11:16)
[2019-07-29] MEDS ORDERED: MELA3TAB39 PO (11:55)
[2019-07-29] MEDS ORDERED: FURO40TA4 PO (11:55)
[2019-07-29] MEDS ORDERED: ACHD5005 PO (11:55)
[2019-07-29] MEDS ORDERED: METF500T19 PO (11:55)
[2019-07-29] MEDS ORDERED: INSU100I23 SQ (11:55)
[2019-07-29] MEDS ORDERED: INSU100V5 SQ (11:55)
== END 2019-09-08 14:06 | disposition home or self-care (01) ==
LOC: ONC 08:41
PROVIDERS: ATTEND Internal Medicine Hematology & Oncology
DX: C18.1 Malignant neoplasm of appendix (principal); Z45.2 Encounter for adjustment and management of vascular access device
CPT/HCPCS: 96523

== ENCOUNTER → 2019-07-09 | Outpatient (CLI) | payer MEDICARE ==
[~2019-07-09] MED LIST changes: +MONT10TA24 PO; -MONT10TA26 PO; +OMEP-280 PO; -OMEP20CA18 PO
--- NOTE | 2019-07-09 10:54 | Diagnostic Imaging Report ---
Digital mammogram. Indication. Bilateral screening. This study was compared to the prior exams of 06/30/2018, 06/12/2017 and 05/28/2016. At this time there are no current complaints. The current study was also evaluated with a Computer Aided Detection (CAD) system. FINDINGS: There are scattered fibroglandular densities in both breasts which could obscure a lesion. Overall, there does not appear to have been any significant change when compared to the prior exam. No primary or secondary sign of malignancy is noted. IMPRESSION: There is no radiographic evidence for malignancy. ACR BI-RADS Category 1: Negative. Result letter will be mailed to the patient. Note: At least 10% of breast cancer is not imaged by mammography. Dictated by: Dictated on workstation # [id number]
== END ==
LOC: RAD 09:57
PROVIDERS: ATTEND Pediatrics
DX: Z12.31 Encounter for screening mammogram for malignant neoplasm of breast (principal)
CPT/HCPCS: 77067

== ENCOUNTER → 2019-08-05 | Outpatient (CLI) | payer MEDICARE ==
[~2019-08-05] MED LIST changes: +ACHD5005 PO; +AMOX1TAB11 PO; +BENZ100C18 PO; +CLIN300C11 PO; +FLUC100T6 PO; +IPRA3AMP31 INH; +LOSA100T57 PO; +MELA3TAB65 PO; +NICO1PAT34 TD; +NYST1000 PO; +PRED10TA22 PO
== END ==
LOC: WOUNDCARE 10:39
PROVIDERS: ATTEND Orthopaedic Surgery Hand Surgery
DX: E11.638 Type 2 diabetes mellitus with other oral complications (principal); L03.211 Cellulitis of face; K12.2 Cellulitis and abscess of mouth; J44.9 Chronic obstructive pulmonary disease, unspecified; Z99.81 Dependence on supplemental oxygen; W88.8XXS Exposure to other ionizing radiation, sequela
CPT/HCPCS: 99213

== ENCOUNTER → 2019-11-01 | Outpatient (CLI) | payer MEDICARE, OTHER ==
[~2019-11-01] MED LIST changes: +MELA3TAB39 PO; -MELA3TAB65 PO; +METF-865 PO; -METF500T19 PO; -MONT10TA24 PO; +MONT10TA26 PO; -OMEP-280 PO; +OMEP20CA18 PO
== END ==
LOC: WOUNDCARE 13:24
PROVIDERS: ATTEND Surgery
DX: E11.622 Type 2 diabetes mellitus with other skin ulcer (principal); L97.212 Non-pressure chronic ulcer of right calf with fat layer exposed; I70.232 Atherosclerosis of native arteries of right leg with ulceration of calf; I87.331 Chronic venous hypertension (idiopathic) with ulcer and inflammation of right lower extremity; J44.9 Chronic obstructive pulmonary disease, unspecified; D64.9 Anemia, unspecified; G47.30 Sleep apnea, unspecified; I25.10 Atherosclerotic heart disease of native coronary artery without angina pectoris; I12.0 Hypertensive chronic kidney disease with stage 5 chronic kidney disease or end stage renal disease; I25.2 Old myocardial infarction; N18.6 End stage renal disease; Z92.21 Personal history of antineoplastic chemotherapy; Z92.3 Personal history of irradiation; E11.42 Type 2 diabetes mellitus with diabetic polyneuropathy
CPT/HCPCS: 99213

== ENCOUNTER → 2019-11-03 | Outpatient (CLI) | payer MEDICARE, OTHER ==
[~2019-11-03] VITALS: Ht 175 cm; Wt 98.0 kg
[~2019-11-03] MED LIST changes: +CATHETER FLUSH 10 ML SYR IV PRN; +REGADENOSON 0.4 MG/5 ML SYR (LEXISCAN) IV ONE
[2019-11-03 09:56] VITALS: BP 164/84
--- NOTE | 2019-11-03 18:51 | STRESS TEST ---
DATE OF SERVICE: 11/03/2019 REFERRING PHYSICIAN: Dr. Bev Villalpando. In summary, the patient was injected with 10.0 mCi of technetium-99 Myoview and the resting images were obtained. Then, the patient received 0.4 mg of Lexiscan followed by 29.1 mCi of technetium-99 Myoview. Throughout the test, there were no EKG changes. The resting and stress images were reviewed and compared in the short axis, horizontal long axis, and vertical long axis views. Review of the images showed reversible ischemia involving the mid to apical anterior wall and anterolateral wall. SSS 8, SDS 6, TID value 1.03. On the gated images, the left ventricle is normal in size with mild hypokinesia of the anterior wall. Calculated ejection fraction 45%. CONCLUSION: 1. The patient tolerated Lexiscan well. 2. Reversible ischemia involving the mid to apical anterior wall and anterolateral wall. 3. Normal left ventricular size with mild hypokinesia of the anterior wall. Calculated ejection fraction 45%. Job ID: [id number] DocumentID: [id number] Dictated Date: 11/03/2019 15:57:26 Crossband Layer Date: 11/03/2019 18:50:56 Dictated By: KYLIE TAYLOR MD
== END ==
LOC: CARD 07:50
PROVIDERS: ATTEND Internal Medicine Cardiovascular Disease
DX: I10 Essential (primary) hypertension (principal); I73.9 Peripheral vascular disease, unspecified; E10.9 Type 1 diabetes mellitus without complications; R06.02 Shortness of breath
CPT/HCPCS: 78452; 93017

== ENCOUNTER 2019-11-10 06:48 | Day surgery (SDC) | payer MEDICARE, OTHER ==
[~2019-11-10] VITALS: Ht 175 cm; Wt 98.0 kg
[2019-11-10] VITALS (10 sets, daily range): BP systolic 136–183; BP diastolic 73–95
[~2019-11-10 06:48] MED LIST changes: -CATHETER FLUSH 10 ML SYR IV PRN; -REGADENOSON 0.4 MG/5 ML SYR (LEXISCAN) IV ONE
[2019-11-10] MEDS ORDERED: NS IV 1000 ML 1,000 ML ONE ×2 (06:52→09:43)
[2019-11-10] MEDS ORDERED: HEParin (CATH LAB) 2,000 ML IV ONE (06:52)
[2019-11-10] MEDS ORDERED: LIDOCAINE 1% INJ 20 ML 20 ML VIAL ONE ×2 (06:52→10:16)
--- OUTSIDE RECORDS SUMMARY | 2019-11-10 06:54 | XMS REPORT | Clinical Summary ---
Author Author [facility] Organization [facility] Address Unknown Phone Unavailable Care Team Providers Care Vice President Consulting Services Name Role Phone Nidhi Ventura MD Unavailable Lolly Mcgregor MD PCP Mary Boland MA,[facility]ETIC[facility] Unavailable [phone] Louise Parrish MA,[facility] Unavailable Unavailable Amparo Reyes RN Unavailable Unavailable Source Comments Some departments are not documenting in the electronic medical record. If you d o not see the information that you expected, contact Release of Information in [facility] Information Management department at [phone] for further assistan ce in locating additional records.[facility] Allergies Comments Active Allergy Reactions Severity Noted [...] Never Used Comments: Smoking for 30 years Drinks/Week oz/Week Comments Alcohol Use No Sex Assigned at Date Recorded Not on file Industry Job Start Date Occupation Not on file Not on file Not on file Travel End Travel History Travel Start No recent travel history available. Last Filed Vital Signs Reading Time Taken Comments Vital Sign 144/67 09/22/2013 4:04 PM CDT Blood Pressure 77 09/22/2013 4:19 PM CDT Pulse 36.7 C (98.1 F) 09/22/2013 2:30 PM CDT Temperature - - Respiratory Rate 97% 09/22/2013 4:19 PM CDT Oxygen Saturation - - Inhaled Oxygen Concentration 82.6 kg (182 lb 1.6 oz) 09/22/2013 10:40 AM CDT Weight 175.3 cm (5' 9") 09/22/2013 10:40 AM CDT Height 26.89 09/22/2013 10:40 AM CDT Body Mass Index Plan of Treatment Health Maintenance Due Date Last Done Comments HIV SCREENING 01/03/1975 DTAP/TDAP VACCINES ( - 01/03/1978 Tdap) HEPATITIS C SCREENING 01/03/1978 PHYSICAL (COMPREHENSIVE) 01/03/1978 EXAM CERVICAL CANCER SCREENING 01/03/1981 BREAST CANCER SCREENING 2000 COLORECTAL CANCER 01/03/2010 SCREENING SHINGLES RECOMBINANT 01/03/2010 VACCINE (1 of 2) INFLUENZA VACCINE 03/16/2020 Results Not on filefrom Last 3 Months Insurance Type Payer Benefit Subscriber ID Effective Phone Address Plan / Dates Group PPO [facility] xxxxxxxxxxxx 2010- PREF CARE Present [phone] Advance Directives [employer] Explanation Type Date Recorded Advance 09/22/2013 9:56 AM Directive/DPOA
--- OUTSIDE RECORDS SUMMARY | 2019-11-10 07:00 | XMS REPORT | Continuity of Care Document ---
Author Organization Unknown Address Unknown Phone Unavailable Allergies Active Description Code Type Severity Reaction Onset Reported/Identified Relationship to Patient Clinical Status Yes codeine [id number] Drug Allergy Unknown N/A 01/13/2007 Yes haloperidol [id number] Drug Aller gy Unknown NAUSEA 10/07/2013 Yes enalaprilat [id number] Drug Aller gy Severe anaphylactic 08/06/2018 Yes codeine [id number] Drug Allergy Mild GI UPSET 08/06/2018 Yes haloperidol [id number] Drug Aller gy Mild NAUSEA 08/06/2018 Medications There is no data. Problems Date Dx Coded Attending Type Code Diagnosis Diagnosed By 05/15/1555 SALOME STEVE Ot 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 OF SUPRAGLOTTIS 05/15/1555 SALOME STEVE Ot C34.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 NEOPLASM OF UPPER LOBE, LEFT B 05/15/1555 SALOME STEVE Ot E11.43 TYPE 2 DIABETES W DIABETIC AUTONOMIC (PO 05/15/1555 SALOME STEVE Ot E78.5 HYPERLIPIDEMIA, UNSPECIFIED 05/15/1555 SALOME STEVE Ot E83.42 HYPOMAGNESEMIA 05/15/1555 SALOME STEVE Ot F17.210 NICOTINE DEPENDENCE, CIGARETTES, UNCOMPL 05/15/1555 SALOME SETVE Ot I10 ESSENTIAL (PRIMARY) HYPERTENSION 05/15/1555 SALOME STEVE Ot I25.10 ATHSCL HEART DISEASE OF [place] CORONARY 05/15/1555 SALOME STEVE Ot J43.9 EMPHYSEMA, UNSPECIFIED 05/15/1555 SALOME STEVE Ot Z45.2 ENCOUNTER FOR ADJUSTMENT AND MANAGEMENT 05/15/1555 SALOME STEVE Ot Z79.899 OTHER EXPEDITER CLERK (CURRENT) DRUG THERAPY 05/15/1555 SALOME STEVE Ot Z92.21 PERSONAL HISTORY OF ANTINEOPLASTIC CHEMO 05/15/1555 SALOME STEVE Ot Z92.3 PERSONAL HISTORY OF IRRADIATION 05/15/1604 POWERSALOME Ot 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 OF SUPRAGLOTTIS 05/15/1604 POWERSALOME Ot C34.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 NEOPLASM OF UPPER LOBE, LEFT B 05/15/1604 POWERSALOME Ot F17.210 NICOTINE DEPENDENCE, CIGARETTES, UNCOMPL 05/15/1604 SALOME STEVE Ot Z45.2 ENCOUNTER FOR ADJUSTMENT AND MANAGEMENT 05/15/1604 SALOME STEVE Ot Z79.899 OTHER EXPEDITER CLERK (CURRENT) DRUG THERAPY 05/15/1604 SALOME STEVE Ot Z92.21 PERSONAL HISTORY OF ANTINEOPLASTIC CHEMO 05/15/1604 SALOME STEVE Ot Z92.3 PERSONAL HISTORY OF IRRADIATION 10/11/2013 LILLY LEE DO Ot 161. 1 MALIG HILARIO SUPRAGLOTTIS 10/11/2013 LILLY LEE DO Ot 250. 01 DIAB OLU WO COMPL, TYPE I [JUVENILE TYP 10/11/2013 LILLY LEE DO Ot 272. 4 HYPERLIPIDEMIA NEC/NOS 10/11/2013 LILLY LEE DO Ot 401. 9 HYPERTENSION NOS 10/11/2013 LILLY LEE DO Ot 414. 00 CORON ATHEROSCLER NOS TYPE VESSEL, NATIV 10/11/2013 LILLY LEE DO Ot 428. 0 CONGESTIVE HEART FAILURE NOS 10/11/2013 LLILY LEE DO Ot V74. 8 SCREEN-BACTERIAL DIS NEC 01/02/2014 SALOME STEVE Ot 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 01/02/2014 SALOME STEVE Ot 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 01/02/2014 SALOME STEVE Ot 250.00 DIAB OLU WO COMPL, TYPE II OR UNSPEC TY 01/02/2014 SALOME STEVE Ot 305.1 TOBACCO USE DISORDER 01/02/2014 SALOME STEVE Ot 401.9 HYPERTENSION NOS 01/02/2014 SALOME STEVE Ot 414.00 CORON ATHEROSCLER NOS TYPE VESSEL, NATIV 01/02/2014 SALOME STEVE Ot 793.11 SOLITARY PULMONARY NODULE 01/02/2014 SALOME STEVE Ot V45.81 AORTOCORONARY BYPASS 01/02/2014 SALOME STEVE Ot V58.0 ENCOUNTER FOR RADIOTHERAPY 01/02/2014 POWERSALOME Ot V58.67 LONG-TERM (CURRENT) USE OF INSULIN 01/02/2014 POWERSALOME N Ot V58.69 OTH MED,LT,CURRENT USE 04/13/2014 POWERSALOME N Ot 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 04/13/2014 SALOME STEVE N Ot 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 04/13/2014 SALOME STEVE N Ot 250.00 DIAB OLU WO COMPL, TYPE II OR UNSPEC TY 04/13/2014 SALOME STEVE N Ot 305.1 TOBACCO USE DISORDER 04/13/2014 SALOME STEVE N Ot 401.9 HYPERTENSION NOS 04/13/2014 SALOME STEVE N Ot 414.00 CORON ATHEROSCLER NOS TYPE VESSEL, NATIV 04/13/2014 SALOME STEVE N Ot 793.11 SOLITARY PULMONARY NODULE 04/13/2014 SALOME STEVE Ot V45.81 AORTOCORONARY BYPASS 04/13/2014 SALOME STEVE Ot V58.67 LONG-TERM (CURRENT) USE OF INSULIN 04/13/2014 SALOME STEVE Ot V58.69 OTH MED,LT,CURRENT USE 04/28/2014 SERGEI CUTLER, STEF P Ot 793.19 04/28/2014 SERGEI CUTLER, STEF P Ot V72.63 04/28/2014 SERGEI CUTLER, STEF P Ot V72.81 04/28/2014 SERGEI CUTLER, STEF P Ot V74 .8 04/29/2014 SERGEI CUTLER, STEF Arriola Ot 478.79 DISEASE OF [place] NEC 05/04/2014 NALINI JOHNS DO S Ot 246.2 05/04/2014 NALINI JOHNS DO S Ot 787.20 05/04/2014 SERGEI CUTLER, STEF P Ot 241 .0 05/04/2014 SERGEI CUTLER, STEF Arriola Ot 492 .8 05/04/2014 SERGEI CUTLER, STEF P Ot 784 .2 05/04/2014 SERGEI CUTLER, STEF P Ot 785 .6 05/04/2014 SERGEI CUTLER, STEF P Ot 787.20 05/04/2014 SERGEI CUTLER, STEF P Ot 240 .9 05/04/2014 SERGEI CUTLER, STEF P Ot 780.79 05/04/2014 STEF MAI MD P Ot 784.42 05/04/2014 JAMES CUTLER, ALBA Zamora Ot 401. 9 05/04/2014 JAMES CUTLER, ALBA Zamora Ot 414. 00 05/04/2014 JAMES CUTLER, ALBA Zamora Ot 794. 30 05/04/2014 SHARLENE CUTLER, MAGAN E Ot 161.1 05/04/2014 ARBUCKLE DO, LILLY D Ot 161. 1 05/04/2014 ARBUCKLE DO, LILLY D Ot V72. 63 05/04/2014 ARBUCKLE DO, LILLY D Ot V72. 84 05/04/2014 SONYA KAYCEE S VOLLEYBALL PLAYER Ot 161.1 05/04/2014 SONYA KAYCEE S VOLLEYBALL PLAYER Ot 196.0 05/04/2014 TONJA HASSANBOB S VOLLEYBALL PLAYER Ot 250.00 05/04/2014 SONYA KAYCEE S VOLLEYBALL PLAYER Ot 305.1 05/04/2014 TONJA HASSANBOB S VOLLEYBALL PLAYER Ot 401.9 05/04/2014 KAYCEE HASSAN S VOLLEYBALL PLAYER Ot 414.00 05/04/2014 TONJA HASSANBBO S VOLLEYBALL PLAYER Ot 793.11 05/04/2014 SONYA KAYCEE S VOLLEYBALL PLAYER Ot V45.81 05/04/2014 SONYA KAYCEE S VOLLEYBALL PLAYER Ot V58.67 05/04/2014 SONYA KAYCEE S VOLLEYBALL PLAYER Ot V58.69 05/04/2014 SONYA KAYCEE S VOLLEYBALL PLAYER Ot 161.1 05/04/2014 SONYA KAYCEE S VOLLEYBALL PLAYER Ot 196.0 05/04/2014 KAYCEE HASASN S VOLLEYBALL PLAYER Ot 250.00 05/04/2014 KAYCEE HASSAN S VOLLEYBALL PLAYER Ot 305.1 05/04/2014 SONYA KAYCEE S VOLLEYBALL PLAYER Ot 401.9 05/04/2014 SONYA KAYCEE S VOLLEYBALL PLAYER Ot 414.00 05/04/2014 SONYA TONJAAH S VOLLEYBALL PLAYER Ot 793.11 05/04/2014 SONYA TONJAAH S VOLLEYBALL PLAYER Ot V45.81 05/04/2014 SONYA TONJAAH S VOLLEYBALL PLAYER Ot V58.67 05/04/2014 KAYCEE HASSAN S VOLLEYBALL PLAYER Ot V58.69 05/04/2014 KAYCEE HASSAN S VOLLEYBALL PLAYER Ot 161.1 05/04/2014 KAYCEE HASSAN S VOLLEYBALL PLAYER Ot 196.0 05/04/2014 HASSANKAYCEE Marinelli VOLLEYBALL PLAYER Ot 250.00 05/04/2014 SONYAKAYCEE S VOLLEYBALL PLAYER Ot 305.1 05/04/2014 HASSANKAYCEE S VOLLEYBALL PLAYER Ot 401.9 05/04/2014 HASSANKAYCEE S VOLLEYBALL PLAYER Ot 414.00 05/04/2014 SONYAKAYCEE S VOLLEYBALL PLAYER Ot 793.11 05/04/2014 SONYA KAYCEE S VOLLEYBALL PLAYER Ot V45.81 05/04/2014 SONYAKAYCEE S VOLLEYBALL PLAYER Ot V58.67 05/04/2014 SONYAKAYCEE S VOLLEYBALL PLAYER Ot V58.69 05/04/2014 SONYAKAYCEE S VOLLEYBALL PLAYER Ot 161.1 05/04/2014 SONYAKAYCEE S VOLLEYBALL PLAYER Ot 196.0 05/04/2014 SONYAKAYCEE S VOLLEYBALL PLAYER Ot 250.00 05/04/2014 SONYA KAYCEE S VOLLEYBALL PLAYER Ot 305.1 05/04/2014 SONYA KAYCEE S VOLLEYBALL PLAYER Ot 401.9 05/04/2014 SONYAKAYCEE S VOLLEYBALL PLAYER Ot 414.00 05/04/2014 SONYAKAYCEE S VOLLEYBALL PLAYER Ot 793.11 05/04/2014 SONYAKAYCEE S VOLLEYBALL PLAYER Ot V45.81 05/04/2014 SONYAKAYCEE S VOLLEYBALL PLAYER Ot V58.67 05/04/2014 SONYAKAYCEE S VOLLEYBALL PLAYER Ot V58.69 05/04/2014 SONYAKAYCEE S VOLLEYBALL PLAYER Ot 161.1 05/04/2014 SONYA KAYCEE S VOLLEYBALL PLAYER Ot 196.0 05/04/2014 SONYAKAYCEE S VOLLEYBALL PLAYER Ot 250.00 05/04/2014 SONYAKAYCEE S VOLLEYBALL PLAYER Ot 305.1 05/04/2014 SONYAKAYCEE S VOLLEYBALL PLAYER Ot 401.9 05/04/2014 SONYA KAYCEE S VOLLEYBALL PLAYER Ot 414.00 05/04/2014 SONYAKAYCEE S VOLLEYBALL PLAYER Ot 793.11 05/04/2014 SONYAKAYCEE S VOLLEYBALL PLAYER Ot V45.81 05/04/2014 SONYA KAYCEE S VOLLEYBALL PLAYER Ot V58.67 05/04/2014 SONYA KAYCEE S VOLLEYBALL PLAYER Ot V58.69 05/04/2014 SONYA KAYCEE S VOLLEYBALL PLAYER Ot 161.1 05/04/2014 KAYCEE HASSAN S VOLLEYBALL PLAYER Ot 196.0 05/04/2014 KAYCEE HASSAN S VOLLEYBALL PLAYER Ot 250.00 05/04/2014 KAYCEE HASSAN S VOLLEYBALL PLAYER Ot 305.1 05/04/2014 KAYCEE HASSAN S VOLLEYBALL PLAYER Ot 401.9 05/04/2014 KAYCEE HASSAN S VOLLEYBALL PLAYER Ot 414.00 05/04/2014 HASSANKAYCEE Marinelli S VOLLEYBALL PLAYER Ot 4 96 05/04/2014 KAYCEE HASSAN S VOLLEYBALL PLAYER Ot 793.11 05/04/2014 KAYCEE HASSAN S VOLLEYBALL PLAYER Ot V45.81 05/04/2014 KAYCEE HASSAN S VOLLEYBALL PLAYER Ot V58.67 05/04/2014 KAYCEE HASSAN S VOLLEYBALL PLAYER Ot V58.69 05/04/2014 SALOME STEVE N Ot 161.1 05/04/2014 SALOME STEVE N Ot 496 05/04/2014 SALOME STEVE N Ot 787.20 05/04/2014 SALOME STEVE N Ot 161.1 05/04/2014 ZAK BUCIO VOLLEYBALL PLAYER Ot 250.02 05/04/2014 KAYCEE HASSAN S VOLLEYBALL PLAYER Ot 161.1 05/04/2014 KAYCEE HASSAN S VOLLEYBALL PLAYER Ot 196.0 05/04/2014 KAYCEE HASSAN S VOLLEYBALL PLAYER Ot 250.00 05/04/2014 KAYCEE HASSAN S VOLLEYBALL PLAYER Ot 305.1 05/04/2014 KAYCEE HASSAN S VOLLEYBALL PLAYER Ot 401.9 05/04/2014 KAYCEE HASSAN S VOLLEYBALL PLAYER Ot 414.00 05/04/2014 KAYCEE HASSAN S VOLLEYBALL PLAYER Ot 4 96 05/04/2014 KAYCEE HASSAN S VOLLEYBALL PLAYER Ot 793.11 05/04/2014 HASSANKAYCEE Marinelli S VOLLEYBALL PLAYER Ot V45.81 05/04/2014 KAYCEE HASSAN S VOLLEYBALL PLAYER Ot V58.67 05/04/2014 KAYCEE HASSAN S VOLLEYBALL PLAYER Ot V58.69 05/04/2014 HASSANKAYCEE Marinelli S VOLLEYBALL PLAYER Ot 161.1 05/04/2014 HASSANKAYCEE Marinelli S VOLLEYBALL PLAYER Ot 196.0 05/04/2014 HASSANKAYCEE Marinelli S VOLLEYBALL PLAYER Ot 250.00 05/04/2014 KAYCEE HASSAN VOLLEYBALL PLAYER Ot 305.1 05/04/2014 KAYCEE HASSAN S VOLLEYBALL PLAYER Ot 401.9 05/04/2014 KAYCEE HASSAN S VOLLEYBALL PLAYER Ot 414.00 05/04/2014 KAYCEE HASSAN VOLLEYBALL PLAYER Ot 4 96 05/04/2014 KAYCEE HASSAN VOLLEYBALL PLAYER Ot 793.11 05/04/2014 KAYCEE HASSAN S VOLLEYBALL PLAYER Ot V45.81 05/04/2014 KAYCEE HASSAN S VOLLEYBALL PLAYER Ot V58.67 05/04/2014 KAYCEE HASSAN S VOLLEYBALL PLAYER Ot V58.69 05/04/2014 KAYCEE HASSAN S VOLLEYBALL PLAYER Ot 161.1 05/04/2014 SERGEI CUTLER, STEF P Ot 793.19 05/04/2014 SERGEI CUTLER, STEF P Ot V72.63 05/04/2014 SERGEI CUTLER, STEF P Ot V72.81 05/04/2014 SERGEI CUTLER, STEF P Ot V74 .8 05/04/2014 POWER, BOBAN N Ot 161.1 05/04/2014 POWER, BOBAN N Ot 196.0 05/04/2014 POWER, BOBAN N Ot 250.00 05/04/2014 POWER, BOBAN N Ot 305.1 05/04/2014 POWER, BOBAN N Ot 401.9 05/04/2014 POWER, BOBAN N Ot 414.00 05/04/2014 POWER, BOBAN N Ot 793.11 05/04/2014 POWER, BOBAN N Ot V45.81 05/04/2014 POWER, BOBAN N Ot V58.67 05/04/2014 POWER, BOBAN N Ot V58.69 05/06/2014 CLAUDIA CUTLER, KYLIE Dawson Ot 272. 4 05/06/2014 CLAUDIA CUTLER, KYLIE Dawson Ot 401. 9 05/06/2014 CLAUDIA CUTLER, KYLIE Dawson Ot 414. 00 05/31/2014 POWER, BOBAN N Ot 161.1 05/31/2014 [...] V58.69 05/31/2014 CLAUDIA CUTLER, KYLIE Dawson Ot 272. 4 05/31/2014 CLAUDIA CUTLER, KYLIE Dawson Ot 401. 9 05/31/2014 CLAUDIA CUTLER, KYLIE J Ot 414. 00 05/31/2014 SONYA KAYCEE S VOLLEYBALL PLAYER Ot 161.1 05/31/2014 TONJA HASSANAH S VOLLEYBALL PLAYER Ot 196.0 05/31/2014 SONYA HILAH S VOLLEYBALL PLAYER Ot 250.00 05/31/2014 SONYA TONJAAH S VOLLEYBALL PLAYER Ot 305.1 05/31/2014 SONYA TONJAAH S VOLLEYBALL PLAYER Ot 401.9 05/31/2014 SONYA KAYCEE S VOLLEYBALL PLAYER Ot 414.00 05/31/2014 SONYA KAYCEE S VOLLEYBALL PLAYER Ot 4 96 05/31/2014 SONYA TONJAAH S VOLLEYBALL PLAYER Ot 793.11 05/31/2014 SONYA TONJAAH S VOLLEYBALL PLAYER Ot V45.81 05/31/2014 SONYA TONJAAH S VOLLEYBALL PLAYER Ot V58.67 05/31/2014 SONYA KAYCEE S VOLLEYBALL PLAYER Ot V58.69 06/01/2014 POWER, BOBAN N Ot [...] 07/06/2014 POWER, BOBAN N Ot 161.1 07/08/2014 SONYA KAYCEE S VOLLEYBALL PLAYER Ot 161.1 07/08/2014 SONYA KAYCEE S VOLLEYBALL PLAYER Ot 196.0 07/08/2014 SONYA KAYCEE S VOLLEYBALL PLAYER Ot 250.00 07/08/2014 SONYA KAYCEE S VOLLEYBALL PLAYER Ot 305.1 07/08/2014 SONYA KAYCEE S VOLLEYBALL PLAYER Ot 401.9 07/08/2014 HASSAN KAYCEE S VOLLEYBALL PLAYER Ot 414.00 07/08/2014 SONYA KAYCEE S VOLLEYBALL PLAYER Ot 4 96 07/08/2014 SONYA KAYCEE S VOLLEYBALL PLAYER Ot 793.11 07/08/2014 SONYA KAYCEE S VOLLEYBALL PLAYER Ot V45.81 07/08/2014 HASSAN TONJAAH S VOLLEYBALL PLAYER Ot V58.67 07/08/2014 HASSAN KAYCEE S VOLLEYBALL PLAYER Ot V58.69 07/12/2014 POWER, PIOTRAN N Ot 161.1 07/12/2014 POWER, BOBAN N Ot 196.0 07/12/2014 POWER, BOBAN N Ot 250.00 07/12/2014 POWER, BOBAN N Ot 305.1 07/12/2014 POWER, BOBAN N Ot 401.9 07/12/2014 POWER, BOBAN N Ot 414.00 07/12/2014 POWER, BOBAN N Ot 793.11 07/12/2014 POWER, BOBAN N Ot V45.81 07/12/2014 POWER, BOBAN N Ot V58.67 07/12/2014 POWER, BOBAN N Ot V58.69 07/12/2014 POWER, BOBAN N Ot V58.81 07/21/2014 HASSANKAYCEE S VOLLEYBALL PLAYER Ot 161.1 07/21/2014 HASSAN, KAYCEE S VOLLEYBALL PLAYER Ot 196.0 07/21/2014 HASSAN, KAYCEE S VOLLEYBALL PLAYER Ot 250.00 07/21/2014 HASSAN, KAYCEE S VOLLEYBALL PLAYER Ot 305.1 07/21/2014 HASSAN, KAYCEE S VOLLEYBALL PLAYER Ot 401.9 07/21/2014 HASSAN, KAYCEE S VOLLEYBALL PLAYER Ot 414.00 07/21/2014 HASSAN, KAYCEE S VOLLEYBALL PLAYER Ot 4 96 07/21/2014 HASSAN, KAYCEE S VOLLEYBALL PLAYER Ot 793.11 07/21/2014 HASSAN, KAYCEE S VOLLEYBALL PLAYER Ot V45.81 07/21/2014 HASSAN, KAYCEE S VOLLEYBALL PLAYER Ot V58.67 07/21/2014 HASSAN, KAYCEE S VOLLEYBALL PLAYER Ot V58.69 07/21/2014 POWER, BOBAN N Ot [...] POWER, BOBAN N Ot V45.81 07/25/2014 POWER, PIOTRAN N Ot V58.67 07/25/2014 POWER, PIOTRAN N Ot V58.69 07/25/2014 POWER, PIOTRAN N Ot V58.81 07/25/2014 POWER, SALOME N Ot 161.1 07/25/2014 POWER, PIOTRAN N Ot 196.0 07/25/2014 POWER, PIOTRAN N Ot 250.00 07/25/2014 POWER, BOBAN N Ot 305.1 07/25/2014 POWER, BOBAN N Ot 401.9 07/25/2014 POWER, BOBAN N Ot 414.00 07/25/2014 POWER, BOBAN N Ot 793.11 07/25/2014 POWER, SALOME N Ot V45.81 07/25/2014 POWER, SALOME N Ot V58.67 07/25/2014 POWER, SALOME N Ot V58.69 07/25/2014 POWER, SALOME N Ot V58.81 07/28/2014 KAYCEE HASSAN S VOLLEYBALL PLAYER Ot 161.1 07/28/2014 KAYCEE HASSAN S VOLLEYBALL PLAYER Ot 196.0 07/28/2014 KAYCEE HASSAN S VOLLEYBALL PLAYER Ot 250.00 07/28/2014 KAYCEE HASSAN S VOLLEYBALL PLAYER Ot 305.1 07/28/2014 KAYCEE HASSAN S VOLLEYBALL PLAYER Ot 401.9 07/28/2014 KAYCEE HASSAN S VOLLEYBALL PLAYER Ot 414.00 07/28/2014 KAYCEE HASSAN S VOLLEYBALL PLAYER Ot 4 96 07/28/2014 KAYCEE HASSAN S VOLLEYBALL PLAYER Ot 793.11 07/28/2014 KAYCEE HASSAN S VOLLEYBALL PLAYER Ot V45.81 07/28/2014 KAYCEE HASSAN S VOLLEYBALL PLAYER Ot V58.67 07/28/2014 KAYCEE HASSAN S VOLLEYBALL PLAYER Ot V58.69 07/28/2014 TONJA HASSANAH S VOLLEYBALL PLAYER Ot V58.81 08/03/2014 HASSANKAYCEE Marinelli S VOLLEYBALL PLAYER Ot 141.9 08/03/2014 KAYCEE HASSAN S VOLLEYBALL PLAYER Ot 793.11 08/29/2014 POWER, SALOME N Ot 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 08/29/2014 POWER, PIOTRAN N Ot 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 08/29/2014 POWER, PIOTRAN N Ot 250.00 DIAB OLU WO COMPL, TYPE II OR UNSPEC TY 08/29/2014 POWER, BOBBRANDO N Ot 305.1 TOBACCO USE DISORDER 08/29/2014 POWER, BOBAN N Ot 401.9 HYPERTENSION NOS 08/29/2014 POWER, PIOTRAN N Ot 414.00 CORON ATHEROSCLER NOS TYPE VESSEL, NATIV 08/29/2014 POWERSALOME PHILLIPS N Ot 793.11 SOLITARY PULMONARY NODULE 08/29/2014 POWERSALOME PHILLIPS N Ot V45.81 AORTOCORONARY BYPASS 08/29/2014 POWERSALOME PHILLIPS N Ot V58.67 LONG-TERM (CURRENT) USE OF INSULIN 08/29/2014 PIOTR STEVEAN N Ot V58.69 OTH MED,LT,CURRENT USE 08/29/2014 POWERSALOME PHILLIPS N Ot V58.81 FIT/ADJ VASCULAR CATHETER 09/07/2014 POWERPIOTR PHILLIPSAN N Ot 161.1 09/07/2014 POWER, BOBAN N Ot 196.0 09/07/2014 POWER, BOBAN N Ot 250.00 09/07/2014 POWER, BOBAN N Ot 305.1 09/07/2014 POWER, BOBAN N Ot 401.9 09/07/2014 POWER, BOBAN N Ot 414.00 09/07/2014 POWER, BOBAN N Ot 793.11 09/07/2014 POWER, BOBAN N Ot V45.81 09/07/2014 POWER BOBAN N Ot V58.67 09/07/2014 POWER BOBAN N Ot V58.69 09/07/2014 POWER, BOBAN N Ot V58.81 09/07/2014 POWER, BOBAN N Ot 161.1 09/07/2014 POWER, BOBAN N Ot 196.0 09/07/2014 POWER, BOBAN N Ot 250.00 09/07/2014 POWER, BOBAN N Ot 305.1 09/07/2014 POWER, BOBAN N Ot 401.9 09/07/2014 POWER, BOBAN N Ot 414.00 09/07/2014 POWER, BOBAN N Ot 793.11 09/07/2014 POWER, BOBAN N Ot V45.81 09/07/2014 SALOME STEVE N Ot V58.67 09/07/2014 SALOME STEVE N Ot V58.69 09/07/2014 SALOME STEVE N Ot V58.81 09/09/2014 Ot 786.6 09/09/2014 Ot V72.63 09/09/2014 Ot V72.81 09/09/2014 Ot V72.83 09/14/2014 NALINI JOHNS DO S Ot 246.2 09/14/2014 NALINI JOHNS DO S Ot 787.20 09/14/2014 SERGEI CUTLER, STEF P Ot 241 .0 09/14/2014 SERGEI CUTLER, STEF P Ot 492 .8 09/14/2014 SERGEI CUTLER, STEF P Ot 784 .2 09/14/2014 SERGEI CUTLER, STEF P Ot 785 .6 09/14/2014 SERGEI CUTLER, STEF P Ot 787.20 09/14/2014 SERGEI CUTLER, STEF P Ot 240 .9 09/14/2014 SERGEI CUTLER, STEF P Ot 780.79 09/14/2014 SERGEI CUTLER, STEF P Ot 784.42 09/14/2014 JAMES CUTLER, ALBA Zamora Ot 401. 9 09/14/2014 JAMES CUTLER, ALBA Zamora Ot 414. 00 09/14/2014 JAMES CUTLER, ALBA Zamora Ot 794. 30 09/14/2014 SHARLENE CUTLER, MAGAN E Ot 161.1 09/14/2014 ARBUCKLE LILLY BIRD Ot 161. 1 09/14/2014 ARBUCKLE LILLY BIRD Ot V72. 63 09/14/2014 [facility] 84 09/14/2014 KAYCEE HASSAN VOLLEYBALL PLAYER Ot 161.1 09/14/2014 KAYCEE HASSAN VOLLEYBALL PLAYER Ot 196.0 09/14/2014 KAYCEE HASSAN VOLLEYBALL PLAYER Ot 250.00 09/14/2014 KAYCEE HASSAN VOLLEYBALL PLAYER Ot 305.1 09/14/2014 KAYCEE HASSAN VOLLEYBALL PLAYER Ot 401.9 09/14/2014 KAYCEE HASSAN VOLLEYBALL PLAYER Ot 414.00 09/14/2014 KAYCEE HASSAN VOLLEYBALL PLAYER Ot 793.11 09/14/2014 KAYCEE HASSAN VOLLEYBALL PLAYER Ot V45.81 09/14/2014 KAYCEE HASSAN VOLLEYBALL PLAYER Ot V58.67 09/14/2014 HASSAN, [facility] S VOLLEYBALL PLAYER Ot V58.69 09/14/2014 HASSAN, [facility] S VOLLEYBALL PLAYER Ot 161.1 09/14/2014 HASSAN, [facility] S VOLLEYBALL PLAYER Ot 196.0 09/14/2014 HASSAN, [facility] S VOLLEYBALL PLAYER Ot 250.00 09/14/2014 HASSAN, [facility] S VOLLEYBALL PLAYER Ot 305.1 09/14/2014 HASSAN, [facility] S VOLLEYBALL PLAYER Ot 401.9 09/14/2014 HASSAN, [facility] S VOLLEYBALL PLAYER Ot 414.00 09/14/2014 HASSAN, [facility] S VOLLEYBALL PLAYER Ot 793.11 09/14/2014 HASSAN [facility] S VOLLEYBALL PLAYER Ot V45.81 09/14/2014 HASSAN [facility] S VOLLEYBALL PLAYER Ot V58.67 09/14/2014 HASSAN [facility] S VOLLEYBALL PLAYER Ot V58.69 09/14/2014 HASSAN [facility] S VOLLEYBALL PLAYER Ot 161.1 09/14/2014 HASSAN, [facility] S VOLLEYBALL PLAYER Ot 196.0 09/14/2014 HASSAN, [facility] S VOLLEYBALL PLAYER Ot 250.00 09/14/2014 HASSAN [facility] S VOLLEYBALL PLAYER Ot 305.1 09/14/2014 SONYA [facility] S VOLLEYBALL PLAYER Ot 401.9 09/14/2014 HASSAN, [facility] S VOLLEYBALL PLAYER Ot 414.00 09/14/2014 HASSAN, [facility] S VOLLEYBALL PLAYER Ot 793.11 09/14/2014 HASSAN, [facility] S VOLLEYBALL PLAYER Ot V45.81 09/14/2014 HASSAN [facility] S [employer] PLAYER Ot V58.67 09/14/2014 HASSAN, [facility] S [employer] PLAYER Ot V58.69 09/14/2014 HASSAN, [facility] S [employer] PLAYER Ot 161.1 09/14/2014 HASSAN, [facility] S [employer] PLAYER Ot 196.0 09/14/2014 HASSAN, [facility] S [employer] PLAYER Ot 250.00 09/14/2014 HASSAN, [facility] S [employer] PLAYER Ot 305.1 09/14/2014 HASSAN, [facility] S [employer] PLAYER Ot 401.9 09/14/2014 HASSAN, [facility] S [employer] PLAYER Ot 414.00 09/14/2014 HASSAN [facility] S [employer] PLAYER Ot 793.11 09/14/2014 TONJA HASSAN S [employer] PLAYER Ot V45.81 09/14/2014 TONJA HASSAN S [employer] PLAYER Ot V58.67 09/14/2014 KAYCEE HASSAN S [employer] PLAYER Ot V58.69 09/14/2014 KAYCEE HASSAN S [employer] PLAYER Ot 161.1 09/14/2014 TONJA HASSAN S [employer]ER Ot 196.0 09/14/2014 HASSAN, HIL S [employer] PLAYER Ot 250.00 09/14/2014 HASSAN, HIL S [employer] PLAYER Ot 305.1 09/14/2014 HASSAN, HIL S [employer] PLAYER Ot 401.9 09/14/2014 TONJA HASSAN S [employer] PLAYER Ot 414.00 09/14/2014 TONJA HASSAN S [employer] PLAYER Ot 793.11 09/14/2014 TONJA HASSAN S [employer] PLAYER Ot V45.81 09/14/2014 TONJA HASSAN S [employer] PLAYER Ot V58.67 09/14/2014 TONJA HASSAN S [employer] PLAYER Ot V58.69 09/14/2014 SONYA [facility] S [employer] PLAYER Ot 161.1 09/14/2014 SONYA [facility] S [employer] PLAYER Ot 196.0 09/14/2014 SONYA [facility] S [employer] PLAYER Ot 250.00 09/14/2014 SONYA [facility] S [employer] PLAYER Ot 305.1 09/14/2014 KAYCEE HASSAN S [employer] PLAYER Ot 401.9 09/14/2014 TONJA HASSAN S [employer] PLAYER Ot 414.00 09/14/2014 KAYCEE HASSAN S [employer] PLAYER Ot 4 96 09/14/2014 TONJA HASSAN S [employer] PLAYER Ot 793.11 09/14/2014 TONJA HASSAN S [employer] PLAYER Ot V45.81 09/14/2014 KAYCEE HASSAN S [employer] PLAYER Ot V58.67 09/14/2014 HASSAN, [facility] S [employer] PLAYER Ot V58.69 09/14/2014 POWER BOBAN N Ot 161.1 09/14/2014 POWER, BOBBRANDO N Ot 496 09/14/2014 POWER, BOBAN N Ot 787.20 09/14/2014 POWER, BOBAN N Ot 161.1 09/14/2014 ZAK BUCIO [employer] Ot 250.02 09/14/2014 HASSANKAYCEE Marinelli S [employer] PLAYER Ot 161.1 09/14/2014 KAYCEE HASSAN S [employer] PLAYER Ot 196.0 09/14/2014 KAYCEE HASSAN S [employer] PLAYER Ot 250.00 09/14/2014 KAYCEE HASSAN S [employer] PLAYER Ot 305.1 09/14/2014 KAYCEE HASSAN S [employer] PLAYER Ot 401.9 09/14/2014 KAYCEE HASSAN S [employer] PLAYER Ot 414.00 09/14/2014 KAYCEE HASSAN S [employer] PLAYER Ot 4 96 09/14/2014 KAYCEE HASSAN S [employer] PLAYER Ot 793.11 09/14/2014 KAYCEE HASSAN S [employer] PLAYER Ot V45.81 09/14/2014 KAYCEE HASSAN S [employer] PLAYER Ot V58.67 09/14/2014 KAYCEE HASSAN S [employer] PLAYER Ot V58.69 09/14/2014 KAYCEE HASSAN S [employer] PLAYER Ot 161.1 09/14/2014 KAYCEE HASSAN S [employer] PLAYER Ot 196.0 09/14/2014 KAYCEE HASSAN S [employer] PLAYER Ot 250.00 09/14/2014 KAYCEE HASSAN S [employer] PLAYER Ot 305.1 09/14/2014 KAYCEE HASSAN S [employer] PLAYER Ot 401.9 09/14/2014 KAYCEE HASSAN S [employer] PLAYER Ot 414.00 09/14/2014 KAYCEE HASSAN S [employer] PLAYER Ot 4 96 09/14/2014 KAYCEE HASSAN S [employer] PLAYER Ot 793.11 09/14/2014 KAYCEE HASSAN S [employer] PLAYER Ot V45.81 09/14/2014 KAYCEE HASSAN S [employer] PLAYER Ot V58.67 09/14/2014 KAYCEE HASSAN S [employer] PLAYER Ot V58.69 09/14/2014 KAYCEE HASSAN S [employer] PLAYER Ot 161.1 09/14/2014 SERGEI CUTLER, STEF P Ot 793.19 09/14/2014 SERGEI CUTLER, STEF P Ot V72.63 09/14/2014 SERGEI CUTLER, STEF P Ot V72.81 09/14/2014 SERGEI CUTLER, STEF P Ot V74 .8 09/14/2014 CLAUDIA CUTLER, KYLIE Dawson Ot 272. 4 09/14/2014 CLAUDIA CUTLER, KYLIE Dawson Ot 401. 9 09/14/2014 CLAUDIA CUTLER, KYLIE Dawson Ot 414. 00 09/14/2014 HASSANKAYCEE Marinelli [employer] PLAYER Ot 161.1 09/14/2014 HASSANKAYCEE Marinelli S [employer] PLAYER Ot 196.0 09/14/2014 KAYCEE HASSAN S [employer] PLAYER Ot 250.00 09/14/2014 KAYCEE HASSAN S [employer] PLAYER Ot 305.1 09/14/2014 KAYCEE HASSAN S [employer] PLAYER Ot 401.9 09/14/2014 HASSANKAYCEE Marinelli S [employer] PLAYER Ot 414.00 09/14/2014 KAYCEE HASSAN S [employer] PLAYER Ot 4 96 09/14/2014 KAYCEE HASASN S V[employer]LEY[employer] PLAYER Ot 793.11 09/14/2014 KAYCEE HASSAN S [employer] PLAYER Ot V45.81 09/14/2014 KAYCEE HASSAN S [employer] PLAYER Ot V58.67 09/14/2014 KAYCEE HASSAN S [employer] PLAYER Ot V58.69 09/14/2014 KAYCEE HASSAN S [employer] PLAYER Ot 161.1 09/14/2014 KAYCEE HASSAN S [employer] PLAYER Ot 196.0 09/14/2014 TONJA HASSAN S [employer] PLAYER Ot 250.00 09/14/2014 KAYCEE HASSAN S [employer] PLAYER Ot 305.1 09/14/2014 KAYCEE HASSAN S [employer] PLAYER Ot 401.9 09/14/2014 KAYCEE HASSAN S [employer] PLAYER Ot 414.00 09/14/2014 KAYCEE HASSAN S [employer] PLAYER Ot 4 96 09/14/2014 KAYCEE HASSAN S [employer] PLAYER Ot 793.11 09/14/2014 KAYCEE HASSAN S [employer] PLAYER Ot V45.81 09/14/2014 HASSANKAYCEE Marinelli S [employer] PLAYER Ot V58.67 09/14/2014 HASSANKAYCEE Marinelli S V[employer] PLAYER Ot V58.69 09/14/2014 HASSANKACYEE Marinelli S [employer]LEY[employer] PLAYER Ot V58.81 09/14/2014 HASSAN, HIL S [employer] PLAYER Ot 141.9 09/14/2014 HASSANKAYCEE Marinelli S [employer] PLAYER Ot 793.11 09/14/2014 Ot 786.6 09/14/2014 Ot V72.63 09/14/2014 Ot V72.81 09/14/2014 Ot V72.83 09/14/2014 SALOME STEVE Ot 161.1 09/14/2014 SALOME STEVE Ot 196.0 09/14/2014 SALOME STEVE Ot 250.00 09/14/2014 POWER, BOBAN N Ot 305.1 09/14/2014 POWER, BOBAN N Ot 401.9 09/14/2014 POWER, BOBAN N Ot 414.00 09/14/2014 POWER, BOBAN N Ot 793.11 09/14/2014 POWER, SALOME N Ot V45.81 09/14/2014 POWER, BOBBRANDO N Ot V58.67 09/14/2014 POWER, BOBBRANDO N Ot V58.69 09/14/2014 POWER, BOBAN N Ot V58.81 09/15/2014 ANDREAS BIRD, NALINI S Ot 246.2 09/15/2014 NALINI JOHNS DO S Ot 787.20 09/15/2014 SERGEI CUTLER, STEF P Ot 241 .0 09/15/2014 SERGEI CUTLER, STEF P Ot 492 .8 09/15/2014 SERGEI CUTLER, STEF P Ot 784 .2 09/15/2014 SERGEI CUTLER, STEF P Ot 785 .6 09/15/2014 SERGEI CUTLER, STEF P Ot 787.20 09/15/2014 SERGEI CUTLER, STEF P Ot 240 .9 09/15/2014 SERGEI CUTLER, STEF P Ot 780.79 09/15/2014 SERGEI CUTLER, STEF P Ot 784.42 09/15/2014 JAMES CUTLER, ALBA Zamora Ot 401. 9 09/15/2014 JAMES CUTLER, ALBA Zamora Ot 414. 00 09/15/2014 JAMES CUTLER, ALBA Zamora Ot 794. 30 09/15/2014 SHARLENE CUTLER, MAGAN Delong Ot 161.1 09/15/2014 ARBUCKLE LILLY BIRD Ot 161. 1 09/15/2014 LEELILLY SWENSON DO Ot V72. 63 09/15/2014 ARBUCKLE LILLY BIRD Ot V72. 84 09/15/2014 KAYCEE HASSAN VOLLEYBALL PLAYER Ot 161.1 09/15/2014 KAYCEE HASSAN VOLLEYBALL PLAYER Ot 196.0 09/15/2014 KAYCEE HASSAN VOLLEYBALL PLAYER Ot 250.00 09/15/2014 KAYCEE HASSAN VOLLEYBALL PLAYER Ot 305.1 09/15/2014 KAYCEE HASSAN VOLLEYBALL PLAYER Ot 401.9 09/15/2014 KAYCEE HASSAN VOLLEYBALL PLAYER Ot 414.00 09/15/2014 HASSAN, [facility] S VOLLEYBALL PLAYER Ot 793.11 09/15/2014 HASSAN [facility] S VOLLEYBALL PLAYER Ot V45.81 09/15/2014 HASSAN, [facility] S VOLLEYBALL PLAYER Ot V58.67 09/15/2014 HASSAN [facility] S VOLLEYBALL PLAYER Ot V58.69 09/15/2014 HASSAN [facility] S VOLLEYBALL PLAYER Ot 161.1 09/15/2014 HASSAN [facility] S VOLLEYBALL PLAYER Ot 196.0 09/15/2014 HASSAN [facility] S VOLLEYBALL PLAYER Ot 250.00 09/15/2014 HASSAN [facility] S VOLLEYBALL PLAYER Ot 305.1 09/15/2014 HASSAN [facility] S VOLLEYBALL PLAYER Ot 401.9 09/15/2014 HASSAN [facility] S VOLLEYBALL PLAYER Ot 414.00 09/15/2014 HASSAN [facility] S VOLLEYBALL PLAYER Ot 793.11 09/15/2014 HASSAN, [facility] S VOLLEYBALL PLAYER Ot V45.81 09/15/2014 SONYA [facility] S VOLLEYBALL PLAYER Ot V58.67 09/15/2014 HASSAN, [facility] S VOLLEYBALL PLAYER Ot V58.69 09/15/2014 HASSAN, [facility] S VOLLEYBALL PLAYER Ot 161.1 09/15/2014 HASSAN, [facility] S VOLLEYBALL PLAYER Ot 196.0 09/15/2014 HASSAN, [facility] S VOLLEYBALL PLAYER Ot 250.00 09/15/2014 HASSAN [facility] S VOLLEYBALL PLAYER Ot 305.1 09/15/2014 HASSAN, [facility] S VOLLEYBALL PLAYER Ot 401.9 09/15/2014 HASSAN, [facility] S VOLLEYBALL PLAYER Ot 414.00 09/15/2014 HASSAN, [facility] S VOLLEYBALL PLAYER Ot 793.11 09/15/2014 HASSAN [facility] S VOLLEYBALL PLAYER Ot V45.81 09/15/2014 HASSAN [facility] S VOLLEYBALL PLAYER Ot V58.67 09/15/2014 HASSAN [facility] S VOLLEYBALL PLAYER Ot V58.69 09/15/2014 HASSAN [facility] S VOLLEYBALL PLAYER Ot 161.1 09/15/2014 HASSAN [facility] S VOLLEYBALL PLAYER Ot 196.0 09/15/2014 HASSAN [facility] S VOLLEYBALL PLAYER Ot 250.00 09/15/2014 HASSAN, [facility] S VOLLEYBALL PLAYER Ot 305.1 09/15/2014 KAYCEE HASSAN S VOLLEYBALL PLAYER Ot 401.9 09/15/2014 KYACEE HASSAN S VOLLEYBALL PLAYER Ot 414.00 09/15/2014 HASSANKAYCEE Marinelli S VOLLEYBALL PLAYER Ot 793.11 09/15/2014 KAYCEE HASSAN S VOLLEYBALL PLAYER Ot V45.81 09/15/2014 HASSANKAYCEE S VOLLEYBALL PLAYER Ot V58.67 09/15/2014 HASSANKAYCEE S VOLLEYBALL PLAYER Ot V58.69 09/15/2014 HASSANKAYCEE S VOLLEYBALL PLAYER Ot 161.1 09/15/2014 HASSANKAYCEE Marinelli S VOLLEYBALL PLAYER Ot 196.0 09/15/2014 HASSAN, HIL S VOLLEYBALL PLAYER Ot 250.00 09/15/2014 KAYCEE HASSAN S VOLLEYBALL PLAYER Ot 305.1 09/15/2014 KAYCEE HASSAN S VOLLEYBALL PLAYER Ot 401.9 09/15/2014 KAYCEE HASSAN S VOLLEYBALL PLAYER Ot 414.00 09/15/2014 KAYCEE HASSAN S VOLLEYBALL PLAYER Ot 793.11 09/15/2014 KAYCEE HASSAN S VOLLEYBALL PLAYER Ot V45.81 09/15/2014 KAYCEE HASSAN S VOLLEYBALL PLAYER Ot V58.67 09/15/2014 HASSANKAYCEE Marinelli S VOLLEYBALL PLAYER Ot V58.69 09/15/2014 KAYCEE HASSAN S VOLLEYBALL PLAYER Ot 161.1 09/15/2014 KAYCEE HASSAN S VOLLEYBALL PLAYER Ot 196.0 09/15/2014 KAYCEE HASSAN S VOLLEYBALL PLAYER Ot 250.00 09/15/2014 KAYCEE HASSAN S VOLLEYBALL PLAYER Ot 305.1 09/15/2014 KAYCEE HASSAN S VOLLEYBALL PLAYER Ot 401.9 09/15/2014 HASSANKAYCEE Marinelli S VOLLEYBALL PLAYER Ot 414.00 09/15/2014 KAYCEE HASSAN S VOLLEYBALL PLAYER Ot 4 96 09/15/2014 HASSANTONJA S VOLLEYBALL PLAYER Ot 793.11 09/15/2014 HASSANKAYCEE Marinelli S VOLLEYBALL PLAYER Ot V45.81 09/15/2014 HASSANKAYCEE S VOLLEYBALL PLAYER Ot V58.67 09/15/2014 HASSANKAYCEE S VOLLEYBALL PLAYER Ot V58.69 09/15/2014 SALOME STEVE N Ot 161.1 09/15/2014 SALOME STEVE N Ot 496 09/15/2014 SALOME STEVE N Ot 787.20 09/15/2014 SALOME STEVE N Ot 161.1 09/15/2014 RUPINDERZAK VOLLEYBALL PLAYER Ot 250.02 09/15/2014 KAYCEE HASSAN S VOLLEYBALL PLAYER Ot 161.1 09/15/2014 KAYCEE HASSAN S VOLLEYBALL PLAYER Ot 196.0 09/15/2014 HASSANKAYCEE Marinelli S VOLLEYBALL PLAYER Ot 250.00 09/15/2014 HASSANKAYCEE Marinelli S VOLLEYBALL PLAYER Ot 305.1 09/15/2014 HASSANKAYCEE Marinelli S VOLLEYBALL PLAYER Ot 401.9 09/15/2014 KAYCEE HASSAN S VOLLEYBALL PLAYER Ot 414.00 09/15/2014 KAYCEE HASSAN S VOLLEYBALL PLAYER Ot 4 96 09/15/2014 KAYCEE HASSAN S VOLLEYBALL PLAYER Ot 793.11 09/15/2014 KAYCEE HASSAN S VOLLEYBALL PLAYER Ot V45.81 09/15/2014 KAYCEE HASSAN S VOLLEYBALL PLAYER Ot V58.67 09/15/2014 KAYCEE HASSAN S VOLLEYBALL PLAYER Ot V58.69 09/15/2014 KAYCEE HASSAN S VOLLEYBALL PLAYER Ot 161.1 09/15/2014 KAYCEE HASSAN S VOLLEYBALL PLAYER Ot 196.0 09/15/2014 KAYCEE HASSAN S VOLLEYBALL PLAYER Ot 250.00 09/15/2014 KAYCEE HASSAN S VOLLEYBALL PLAYER Ot 305.1 09/15/2014 KAYCEE HASSAN S VOLLEYBALL PLAYER Ot 401.9 09/15/2014 KAYCEE HASSAN S VOLLEYBALL PLAYER Ot 414.00 09/15/2014 KAYCEE HASSAN S VOLLEYBALL PLAYER Ot 4 96 09/15/2014 HASSANKAYCEE Marinelli S VOLLEYBALL PLAYER Ot 793.11 09/15/2014 HASSANKAYCEE Marinelli S VOLLEYBALL PLAYER Ot V45.81 09/15/2014 HASSANKAYCEE S VOLLEYBALL PLAYER Ot V58.67 09/15/2014 HASSANKAYCEE S VOLLEYBALL PLAYER Ot V58.69 09/15/2014 HASSANKAYCEE Marinelli S VOLLEYBALL PLAYER Ot 161.1 09/15/2014 SERGEI CUTLER, STEF Arriola Ot 793.19 09/15/2014 SERGEI CUTLER, STEF Arriola Ot V72.63 09/15/2014 SERGEI CUTLER, STEF P Ot V72.81 09/15/2014 SERGEI CUTLER, STEF Arriola Ot V74 .8 09/15/2014 CLAUDIA CUTLER, KYLIE Dawson Ot 272. 4 09/15/2014 CLAUDIA CUTLER, KYLIE Dawson Ot 401. 9 09/15/2014 CLAUIDA CUTLER, KYLIE Dawson Ot 414. 00 09/15/2014 KAYCEE HASSAN S VOLLEYBALL PLAYER Ot 161.1 09/15/2014 KAYCEE HASSAN S VOLLEYBALL PLAYER Ot 196.0 09/15/2014 KAYCEE HASSAN S VOLLEYBALL PLAYER Ot 250.00 09/15/2014 HASSANKAYCEE Marinelli S VOLLEYBALL PLAYER Ot 305.1 09/15/2014 KAYCEE HASSAN S VOLLEYBALL PLAYER Ot 401.9 09/15/2014 HASSANKAYCEE Marinelli S VOLLEYBALL PLAYER Ot 414.00 09/15/2014 HASSANKAYCEE Marinelli S VOLLEYBALL PLAYER Ot 4 96 09/15/2014 HASSANKAYCEE Marinelli S VOLLEYBALL PLAYER Ot 793.11 09/15/2014 HASSANKAYCEE Marinelli S VOLLEYBALL PLAYER Ot V45.81 09/15/2014 HASSANKAYCEE Marinelli S VOLLEYBALL PLAYER Ot V58.67 09/15/2014 HASSANKAYCEE Marinelli S VOLLEYBALL PLAYER Ot V58.69 09/15/2014 KAYCEE HASSAN S VOLLEYBALL PLAYER Ot 161.1 09/15/2014 KAYCEE HASSAN S VOLLEYBALL PLAYER Ot 196.0 09/15/2014 KAYCEE HASSAN S VOLLEYBALL PLAYER Ot 250.00 09/15/2014 KAYCEE HASSAN S VOLLEYBALL PLAYER Ot 305.1 09/15/2014 KAYCEE HASSAN S VOLLEYBALL PLAYER Ot 401.9 09/15/2014 KAYCEE HASSAN S VOLLEYBALL PLAYER Ot 414.00 09/15/2014 HASSANKAYCEE Marinelli S VOLLEYBALL PLAYER Ot 4 96 09/15/2014 HASSANKAYCEE Marinelli S VOLLEYBALL PLAYER Ot 793.11 09/15/2014 HASSANKAYCEE Marinelli S VOLLEYBALL PLAYER Ot V45.81 09/15/2014 HASSANKAYCEE S VOLLEYBALL PLAYER Ot V58.67 09/15/2014 SONYA KAYCEE S VOLLEYBALL PLAYER Ot V58.69 09/15/2014 HASSANKAYCEE S VOLLEYBALL PLAYER Ot V58.81 09/15/2014 SONYA KAYCEE S VOLLEYBALL PLAYER Ot 141.9 09/15/2014 SONYA KAYCEE S VOLLEYBALL PLAYER Ot 793.11 09/15/2014 Ot 786.6 09/15/2014 Ot V72.63 09/15/2014 Ot V72.81 09/15/2014 Ot V72.83 09/15/2014 POWER, BOBAN N Ot 161.1 09/15/2014 POWER, BOBAN N Ot 196.0 09/15/2014 POWER, BOBAN N Ot 250.00 09/15/2014 POWER, BOBAN N Ot 305.1 09/15/2014 POWER, BOBAN N Ot 401.9 09/15/2014 POWER, BOBAN N Ot 414.00 09/15/2014 POEWR, BOBAN N Ot 793.11 09/15/2014 POWER, BOBAN [...] Ot V58.81 10/16/2014 JASKARAN CUTLER, DARIAN Ot 162. 9 10/16/2014 JASKARAN CUTLER, DARIAN Ot 414. 01 10/16/2014 JASKARAN CUTLER, DARIAN Ot 782. 3 11/12/2014 JASKARAN CUTLER, DARIAN Ot 162. 9 11/12/2014 JASKARAN CUTLER, DARIAN Ot 414. 01 11/12/2014 JASKARAN CUTLER, DARIAN Ot 782. 3 11/23/2014 POWER, BOBAN N Ot 161.1 11/23/2014 [...] CORON ATHEROSCLER NOS TYPE VESSEL, NATIV 12/14/2014 POWER, BOBAN N Ot 793.11 SOLITARY PULMONARY NODULE 12/14/2014 POWER, BOBAN N Ot V45.81 AORTOCORONARY BYPASS 12/14/2014 POWER, BOBAN N Ot V58.67 LONG-TERM (CURRENT) USE OF INSULIN 12/14/2014 POWER BOBAN N Ot V58.69 OTH MED,LT,CURRENT USE 12/14/2014 POWER, BOBAN N Ot V58.81 FIT/ADJ VASCULAR CATHETER [...] N Ot V58.69 12/21/2014 CLAUDIA CUTLER, KYLIE J Ot 250. 00 12/21/2014 CLAUDIA CUTLER, KYLIE J Ot 401. 9 12/21/2014 CLAUDIA CUTLER, KYLIE J Ot 414. 00 12/21/2014 CLAUDIA CUTLER, KYLIE J Ot 428. 0 12/21/2014 CLAUDIA CUTLER, KYLIE J Ot V58. 67 12/21/2014 POWER, BOBAN N Ot 793.11 12/30/2014 POWER, BOBAN N Ot 793.11 12/30/2014 CLAUDIA CUTLER, KYLIE J Ot 250. 00 12/30/2014 CLAUDIA CUTLER, KYLIE J Ot 401. 9 12/30/2014 CLAUDIA CUTLER, ANITHAHAR J Ot 414. 00 12/30/2014 CLAUDIA CUTLER, BASHAR J Ot 428. 0 12/30/2014 CLAUDIA CUTLER, KYLIE J Ot V58. 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 03/15/2015 POWER, BOBAN N Ot 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 03/15/2015 POWER, BOBAN N Ot 250.00 DIAB OLU WO COMPL, TYPE II OR UNSPEC TY 03/15/2015 POWER, BOBAN N Ot 305.1 TOBACCO USE DISORDER 03/15/2015 POWER, BOBAN N Ot 401.9 HYPERTENSION NOS 03/15/2015 POWER, BOBAN N Ot 414.00 CORON ATHEROSCLER NOS TYPE VESSEL, NATIV 03/15/2015 POWER, BOBAN N Ot 793.11 SOLITARY PULMONARY NODULE 03/15/2015 POWER BOBAN N Ot V45.81 AORTOCORONARY BYPASS 03/15/2015 POWER BOBAN N Ot V58.67 LONG-TERM (CURRENT) USE OF INSULIN 03/15/2015 SALOME STEVE N Ot V58.69 OT MED,LT,CURRENT USE 03/15/2015 POWER, SALOME N Ot V58.81 FIT/ADJ VASCULAR CATHETER 03/17/2015 POWERSALOME PHILLIPS N Ot 161.1 03/17/2015 POWER, BOBAN N Ot 196.0 03/17/2015 POWER, PIOTRAN N Ot 250.00 03/17/2015 POWER, BOBAN N Ot 305.1 03/17/2015 POWER, BOBAN N Ot 401.9 03/17/2015 POWER, BOBAN N Ot 414.00 03/17/2015 POWER, PIOTRAN N Ot 793.11 03/17/2015 POWER, PIOTRAN N Ot V45.81 03/17/2015 POWER, SALOME N Ot V58.67 03/17/2015 POWER, BOBAN N Ot V58.69 03/20/2015 KAYCEE HASSAN S VOLLEYBALL PLAYER Ot 162.9 04/06/2015 KAYCEE HASSAN S VOLLEYBALL PLAYER Ot C34.90 04/07/2015 TONJA HASSANAH S VOLLEYBALL PLAYER Ot C32.1 04/07/2015 KAYCEE HASSAN S VOLLEYBALL PLAYER Ot Z12.31 06/02/2015 POWER, BOBAN N Ot 161.1 06/02/2015 POWER, BOBAN N Ot 196.0 06/02/2015 POWER, BOBAN N Ot 250.00 06/02/2015 POWER, BOBAN N Ot 305.1 06/02/2015 POWER, BOBAN N Ot 401.9 06/02/2015 POWER, BOBAN N Ot 414.00 06/02/2015 POWER, BOBAN N Ot 793.11 06/02/2015 POWER BOBAN N Ot V45.81 06/02/2015 POWER, BOBAN N Ot V58.67 06/02/2015 POWER, BOBAN N Ot V58.69 06/15/2015 KAYCEE HASSAN S VOLLEYBALL PLAYER Ot C32.1 06/15/2015 KAYCEE HASSAN S VOLLEYBALL PLAYER Ot Z12.31 06/18/2015 POWER, BOBAN N Ot 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 OF SUPRAGLOTTIS 06/18/2015 POWER, BOBAN N Ot C34.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 NEOPLASM OF UPPER LOBE, LEFT B 06/18/2015 SALOME STEVE N Ot F17.210 NICOTINE DEPENDENCE, CIGARETTES, UNCOMPL 06/18/2015 SALOME STEVE N Ot Z79.899 OTHER EXPEDITER CLERK (CURRENT) DRUG THERAPY 06/18/2015 SALOME STEVE N Ot Z92.21 PERSONAL HISTORY OF ANTINEOPLASTIC CHEMO 06/18/2015 SALOME STEVE N Ot Z92.3 PERSONAL HISTORY OF IRRADIATION 06/20/2015 POWER SALOME N Ot 161.1 06/20/2015 POWER, SALOME N Ot 162.3 06/20/2015 POWER, SALOME N Ot 305.1 06/20/2015 POWER, SALOME N Ot C32.1 06/20/2015 POWER, SALOME N Ot C34.12 06/20/2015 POWER, SALOME N Ot F17.210 06/20/2015 POWER, SALOME N Ot V15.3 06/20/2015 POWER, SALOME N Ot V58.69 06/20/2015 POWERPIOTR PHILLIPSBRANDO N Ot V87.41 06/20/2015 SALOME STEVE N Ot Z79.899 06/20/2015 POWERSALOME PHILLIPS N Ot Z92.21 06/20/2015 POWERSALOME PHILLIPS N Ot Z92.3 06/26/2015 KAYCEE HASSAN Ot C32.1 07/11/2015 ARBUCKLE LILLY BIRD Ot K38. 1 APPENDICULAR CONCRETIONS 07/11/2015 LILLY LEE DO Ot K62. 1 RECTAL POLYP 07/11/2015 LEE LILLY BIRD Ot K63. 5 POLYP OF COLON 07/11/2015 LEE LILLY BIRD Ot Z12. 11 ENCOUNTER FOR SCREENING FOR MALIGNANT NE 08/08/2015 POWER, SALOME N Ot 161.1 08/08/2015 POWERSALOME N Ot 162.3 08/08/2015 POWERSALOME N Ot 305.1 08/08/2015 POWER, BOBAN N Ot C32.1 08/08/2015 POWER, BOBAN N Ot C34.12 08/08/2015 POWER, SALOME N Ot F17.210 08/08/2015 POWER, SALOME N Ot V15.3 08/08/2015 SALOME STEVE N Ot V58.69 08/08/2015 SALOME STEVE Miguel A Ot V87.41 08/08/2015 SALOME STEVE N Ot Z79.899 08/08/2015 SALOME STEVE N Ot Z92.21 08/08/2015 SALOME STEVE N Ot Z92.3 09/17/2015 SALOME STEVE N Ot 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 OF SUPRAGLOTTIS 09/17/2015 POWER PIOTRBRANDO Miguel A Ot C34.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 NEOPLASM OF UPPER LOBE, LEFT B 09/17/2015 SALOME STEVE Miguel A Ot F17.210 NICOTINE DEPENDENCE, CIGARETTES, UNCOMPL 09/17/2015 SALOME STEVE Miguel A Ot Z45.2 ENCOUNTER FOR ADJUSTMENT AND MANAGEMENT 09/17/2015 SALOME STEVE Miguel A Ot Z79.899 OTHER RETIREMENT (CURRENT) DRUG THERAPY 09/17/2015 SALOME STEVE Miguel A Ot Z92.21 PERSONAL HISTORY OF ANTINEOPLASTIC CHEMO 09/17/2015 POWER SALOME Grady Ot Z92.3 PERSONAL HISTORY OF IRRADIATION 09/18/2015 SALOME STEVE N Ot C32.1 09/18/2015 PIOTR STEVEBRANDO N Ot C34.12 09/18/2015 POWER SALOME N Ot F17.210 09/18/2015 SALOME STEVE N Ot Z79.899 09/18/2015 SALOME STEVE N Ot Z92.21 09/18/2015 SALOME STEVE N Ot Z92.3 10/09/2015 POWERSALOME N Ot 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 10/09/2015 POWERSALOME N Ot 162.3 MAL HILARIO UPPER LOBE LUNG 10/09/2015 POWER SALOME N Ot 305.1 TOBACCO USE DISORDER 10/09/2015 SALOME STEVE N Ot 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 OF SUPRAGLOTTIS 10/09/2015 POWER SALOME N Ot C34.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 NEOPLASM OF UPPER LOBE, LEFT B 10/09/2015 POWER PIOTRBRANDO N Ot F17.210 NICOTINE DEPENDENCE, CIGARETTES, UNCOMPL 10/09/2015 POWER SALOME Grady Ot V15.3 HX OF IRRADIATION 10/09/2015 POWER SALOME Grady Ot V58.69 OTH MED,LT,CURRENT USE 10/09/2015 SALOME STEVE Miguel A Ot V87.41 PERSONAL HISTORY OF ANTINEOPLASTIC CHEMO 10/09/2015 POWER PIOTRBRANDO Miguel A Ot Z79.899 OTHER EXPEDITER CLERK (CURRENT) DRUG THERAPY 10/09/2015 POWER PIOTRBRANDO Miguel A Ot Z92.21 PERSONAL HISTORY OF ANTINEOPLASTIC CHEMO 10/09/2015 SALOME STEVE Miguel A Ot Z92.3 PERSONAL HISTORY OF IRRADIATION 11/02/2015 LILLY LEE DO Ot 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 9 DISORDER OF THE SKIN AND SUBCUTANEOUS TI 11/02/2015 LILLY LEE DO Ot Z01.818 ENCOUNTER FOR OTHER PREPROCEDURAL EXAMIN 11/02/2015 LILLY LEE DO Ot Z11. 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 9 DISORDER OF THE SKIN AND SUBCUTANEOUS TI 11/04/2015 LILLY LEE DO Ot Z01.818 ENCOUNTER FOR OTHER PREPROCEDURAL EXAMIN 11/04/2015 LILLY LEE DO Ot Z11. 2 ENCOUNTER FOR SCREENING FOR OTHER BACTER 11/04/2015 LILLY LEE DO Ot Z86.010 PERSONAL HISTORY OF COLONIC POLYPS 11/08/2015 POWER, SALOME Grady Ot 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 OF SUPRAGLOTTIS 11/08/2015 POWER, SALOME Grady Ot C34.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 NEOPLASM OF UPPER LOBE, LEFT B 11/08/2015 POWER, SALOME Grady Ot F17.210 NICOTINE DEPENDENCE, CIGARETTES, UNCOMPL 11/08/2015 POWER SALOME Grady Ot Z79.899 OTHER EXPEDITER CLERK (CURRENT) DRUG THERAPY 11/08/2015 POWER SALOME Grady Ot Z92.21 PERSONAL HISTORY OF ANTINEOPLASTIC CHEMO 11/08/2015 POWER, PIOTRBRANDO Miguel A Ot Z92.3 PERSONAL HISTORY OF IRRADIATION 11/09/2015 LILLY LEE DO Ot D12. 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 1 RECTAL POLYP 11/09/2015 LILLY LEE DO Ot L98. 9 DISORDER OF THE SKIN AND SUBCUTANEOUS TI 11/24/2015 LILIAN TREJO DO Ot C32. 1 MALIGNANT NEOPLASM OF SUPRAGLOTTIS 11/24/2015 LILIAN TREJO DO Ot C34. 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 NEOPLASM OF UPPER LOBE, LEFT B 11/27/2015 LILLY LEE DO Ot D12. 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 1 MALIGNANT NEOPLASM OF SUPRAGLOTTIS 12/07/2015 LILIAN TREJO DO Ot C34. 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 NEOPLASM OF UPPER LOBE, LEFT B 12/15/2015 LILIAN TREJO DO Ot C32. 1 MALIGNANT NEOPLASM OF SUPRAGLOTTIS 12/15/2015 LILIAN TREJO DO Ot C34. 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 NEOPLASM OF UPPER LOBE, LEFT B 12/17/2015 LILIAN TREJO DO Ot C32. 1 MALIGNANT NEOPLASM OF SUPRAGLOTTIS 12/17/2015 LILIAN TREJO DO Ot C34. 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 NEOPLASM OF UPPER LOBE, LEFT B 12/29/2015 LILIAN TREJO DO Ot C32. 1 MALIGNANT NEOPLASM OF SUPRAGLOTTIS 12/29/2015 LILIAN TREJO DO Ot C34. 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 NEOPLASM OF UPPER LOBE, LEFT B 01/02/2016 POWER, BOBAN N Ot 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 OF SUPRAGLOTTIS 01/07/2016 SALOME STEVE N Ot 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 OF SUPRAGLOTTIS 01/07/2016 SALOME STEVE N Ot C34.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 NEOPLASM OF UPPER LOBE, LEFT B 01/07/2016 SALOME STEVE N Ot F17.210 NICOTINE DEPENDENCE, CIGARETTES, UNCOMPL 01/07/2016 SALOME STEVE N Ot Z79.899 OTHER RETIREMENT (CURRENT) DRUG THERAPY 01/07/2016 SALOME STEVE N Ot Z92.21 PERSONAL HISTORY OF ANTINEOPLASTIC CHEMO 01/07/2016 SALOME STEVE N Ot Z92.3 PERSONAL HISTORY OF IRRADIATION 01/13/2016 SALOME STEVE N Ot 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 OF SUPRAGLOTTIS 01/13/2016 SALOME STEVE N Ot C34.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 NEOPLASM OF UPPER LOBE, LEFT B 01/13/2016 SALOME STEVE N Ot F17.210 NICOTINE DEPENDENCE, CIGARETTES, UNCOMPL 01/13/2016 SALOME STEVE N Ot Z79.899 OTHER RETIREMENT (CURRENT) DRUG THERAPY 01/13/2016 SALOME STEVE N Ot Z92.21 PERSONAL HISTORY OF ANTINEOPLASTIC CHEMO 01/13/2016 SALOME STEVE N Ot Z92.3 PERSONAL HISTORY OF IRRADIATION 01/18/2016 SALOME STEVE N Ot 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 OF SUPRAGLOTTIS 02/15/2016 SALOME STEVE N Ot 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 OF SUPRAGLOTTIS 02/15/2016 SALOME STEVE N Ot C34.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 NEOPLASM OF UPPER LOBE, LEFT B 02/15/2016 SALOME STEVE N Ot F17.210 NICOTINE DEPENDENCE, CIGARETTES, UNCOMPL 02/15/2016 SALOME STEVE N Ot Z79.899 OTHER RETIREMENT (CURRENT) DRUG THERAPY 02/15/2016 SALOME STEVE N Ot Z92.21 PERSONAL HISTORY OF ANTINEOPLASTIC CHEMO 02/15/2016 SALOME STEVE N Ot Z92.3 PERSONAL HISTORY OF IRRADIATION 03/10/2016 LILIAN TREJO DO Ot C32. 1 MALIGNANT NEOPLASM OF SUPRAGLOTTIS 03/10/2016 LILIAN TREJO DO Ot C34. 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, LEFT B 03/12/2016 SALOME STEVE N Ot F17.210 NICOTINE DEPENDENCE, CIGARETTES, UNCOMPL 03/12/2016 SALOME STEVE Miguel A Ot Z45.2 ENCOUNTER FOR ADJUSTMENT AND MANAGEMENT 03/12/2016 SALOME STEVE N Ot Z79.899 OTHER RETIREMENT (CURRENT) DRUG THERAPY 03/12/2016 SALOME STEVE Miguel A Ot Z92.21 PERSONAL HISTORY OF ANTINEOPLASTIC CHEMO 03/12/2016 POWER, SALOME N Ot Z92.3 PERSONAL HISTORY OF IRRADIATION 03/15/2016 ETHAN RODRIGES APRN Ot F17.210 NICOTINE DEPENDENCE, CIGARETTES, UNCOMPL 03/15/2016 ETHAN RODRIGES APRN Ot K85 .9 ACUTE PANCREATITIS, UNSPECIFIED 03/15/2016 ETHAN RODRIGES APRN Ot R10.13 EPIGASTRIC PAIN 03/15/2016 ETHAN RODRIGES APRN Ot Z79.82 EXPEDITER CLERK (CURRENT) USE OF ASPIRIN 03/15/2016 ETHAN RODRIGES APRN Ot Z79.899 OTHER EXPEDITER CLERK (CURRENT) DRUG THERAPY 03/15/2016 ETHAN RODRIGES APRN Ot Z95 .1 PRESENCE OF AORTOCORONARY BYPASS GRAFT 03/22/2016 SALOME STEVE Miguel A Ot 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 OF SUPRAGLOTTIS 03/22/2016 SALOME STEVE N Ot C34.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 NEOPLASM OF UPPER LOBE, LEFT B 03/22/2016 POWER PIOTRBRANDO Miguel A Ot F17.210 NICOTINE DEPENDENCE, CIGARETTES, UNCOMPL 03/22/2016 ASLOME STEVE Miguel A Ot Z45.2 ENCOUNTER FOR ADJUSTMENT AND MANAGEMENT 03/22/2016 SALOME STEVE N Ot Z79.899 OTHER RETIREMENT (CURRENT) DRUG THERAPY 03/22/2016 POWER, PIOTRBRANDO N Ot Z92.21 PERSONAL HISTORY OF ANTINEOPLASTIC CHEMO 03/22/2016 POWER SALOME N Ot Z92.3 PERSONAL HISTORY OF IRRADIATION 03/25/2016 ETHAN RODRIGES APRN Ot F17.210 NICOTINE DEPENDENCE, CIGARETTES, UNCOMPL 03/25/2016 ETHAN RODRIGES APRN Ot K85 .9 ACUTE PANCREATITIS, UNSPECIFIED 03/25/2016 ETHAN RODRIGES FIRE CHIEF DEPUTY Ot R10.13 EPIGASTRIC PAIN 03/25/2016 ETHAN RODRIGES FIRE CHIEF DEPUTY Ot Z79.82 RETIREMENT (CURRENT) USE OF ASPIRIN 03/25/2016 ETHAN RODRIGES FIRE CHIEF DEPUTY Ot Z79.899 OTHER EXPEDITER CLERK (CURRENT) DRUG THERAPY 03/25/2016 ETHAN RODRIGES FIRE CHIEF DEPUTY Ot Z95 .1 PRESENCE OF AORTOCORONARY BYPASS GRAFT 04/03/2016 SALOME STEVE Miguel A Ot 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 OF SUPRAGLOTTIS 04/03/2016 SALOME STEVE N Ot C34.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 NEOPLASM OF UPPER LOBE, LEFT B 04/03/2016 SALOME STEVE N Ot F17.210 NICOTINE DEPENDENCE, CIGARETTES, UNCOMPL 04/03/2016 SALOME STEVE Miguel A Ot Z45.2 ENCOUNTER FOR ADJUSTMENT AND MANAGEMENT 04/03/2016 SALOME STEVE N Ot Z79.899 OTHER RETIREMENT (CURRENT) DRUG THERAPY 04/03/2016 SALOME STEVE N Ot Z92.21 PERSONAL HISTORY OF ANTINEOPLASTIC CHEMO 04/03/2016 SALOME STEVE N Ot Z92.3 PERSONAL HISTORY OF IRRADIATION 04/05/2016 SALOME STEVE N Ot 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 OF SUPRAGLOTTIS 04/05/2016 SALOME STEVE N Ot C34.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 NEOPLASM OF UPPER LOBE, LEFT B 04/05/2016 SALOME STEVE N Ot F17.210 NICOTINE DEPENDENCE, CIGARETTES, UNCOMPL 04/05/2016 SALOME STEVE N Ot Z79.899 OTHER EXPEDITER CLERK (CURRENT) DRUG THERAPY 04/05/2016 SALOME STEVE N Ot Z92.21 PERSONAL HISTORY OF ANTINEOPLASTIC CHEMO 04/05/2016 SALOME STEVE N Ot Z92.3 PERSONAL HISTORY OF IRRADIATION 04/08/2016 ANAIS ANGULO MD Ot 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 OF SUPRAGLOTTIS 04/08/2016 ANAIS ANGULO MD Ot Z09 ENCNTR FOR F/U EXAM AFT TRTMT FOR COND O 04/08/2016 ANAIS ANGULO MD Ot Z96.8 9 PRESENCE OF OTHER SPECIFIED FUNCTIONAL I 04/08/2016 KAYCEE HASSAN Ot 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 OF SUPRAGLOTTIS 04/08/2016 HASSAN, HILAH S VOLLEYBALL PLAYER Ot C34.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 NEOPLASM OF UPPER LOBE, LEFT B 04/08/2016 KAYCEE HASSANP Ot M25.552 PAIN IN LEFT HIP 04/11/2016 ANAIS ANGULO MD Ot 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 OF SUPRAGLOTTIS 04/11/2016 ANAIS ANGULO MD Ot Z09 ENCNTR FOR F/U EXAM AFT TRTMT FOR COND O 04/11/2016 ANAIS ANGULO MD Ot Z96.8 9 PRESENCE OF OTHER SPECIFIED FUNCTIONAL I 04/29/2016 KAYCEE HASSAN VOLLEYBALL PLAYER Ot 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 OF SUPRAGLOTTIS 04/29/2016 KAYCEE HASSANP Ot C34.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 NEOPLASM OF UPPER LOBE, LEFT B 04/29/2016 KAYCEE HASSANP Ot M25.552 PAIN IN LEFT HIP 04/29/2016 ANAIS ANGULO MD, Ot 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 OF SUPRAGLOTTIS 04/29/2016 ANAIS ANGULO MD, Ot Z09 ENCNTR FOR F/U EXAM AFT TRTMT FOR COND O 04/29/2016 ANAIS ANGULO MD Ot Z96.8 9 PRESENCE OF OTHER SPECIFIED FUNCTIONAL I 05/03/2016 SALOME STEVE Ot 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 OF SUPRAGLOTTIS 05/03/2016 SALOME STEVE Ot C34.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 NEOPLASM OF UPPER LOBE, LEFT B 05/03/2016 SALOME STEVE Ot F17.210 NICOTINE DEPENDENCE, CIGARETTES, UNCOMPL 05/03/2016 SALOME STEVE Ot Z79.899 OTHER EXPEDITER CLERK (CURRENT) DRUG THERAPY 05/03/2016 SALOME STEVE Ot Z92.21 PERSONAL HISTORY OF ANTINEOPLASTIC CHEMO 05/03/2016 SALOME STEVE Ot Z92.3 PERSONAL HISTORY OF IRRADIATION 05/03/2016 KAYCEE HASSAN VOLLEYBALL PLAYER Ot 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 OF SUPRAGLOTTIS 05/03/2016 KAYCEE HASSAN VOLLEYBALL PLAYER Ot C34.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 NEOPLASM OF UPPER LOBE, LEFT B 05/03/2016 KAYCEE HASSANP Ot M25.552 PAIN IN LEFT HIP 05/03/2016 ADELE MD, PAYTON Ot 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 OF SUPRAGLOTTIS 05/03/2016 ANAIS ANGULO MD Ot Z09 ENCNTR FOR F/U EXAM AFT TRTMT FOR COND O 05/03/2016 ANAIS ANGULO MD Ot Z96.8 9 PRESENCE OF OTHER SPECIFIED FUNCTIONAL I 05/07/2016 KAYCEE HASSAN VOLLEYBALL PLAYER Ot 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 OF SUPRAGLOTTIS 05/07/2016 KAYCEE HASSAN VOLLEYBALL PLAYER Ot C34.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 NEOPLASM OF UPPER LOBE, LEFT B 05/07/2016 KAYCEE HASSAN VOLLEYBALL PLAYER Ot M25.552 PAIN IN LEFT HIP 05/07/2016 ANAIS ANGULO MD Ot 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 OF SUPRAGLOTTIS 05/07/2016 ANAIS ANGULO MD, Ot Z09 ENCNTR FOR F/U EXAM AFT TRTMT FOR COND O 05/07/2016 ANAIS ANGULO MD Ot Z96.8 9 PRESENCE OF OTHER SPECIFIED FUNCTIONAL I 05/14/2016 SALOME STEVE Ot 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 OF SUPRAGLOTTIS 05/14/2016 SALOME STEVE Ot C34.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 NEOPLASM OF UPPER LOBE, LEFT B 05/14/2016 SALOME STEVE Ot F17.210 NICOTINE DEPENDENCE, CIGARETTES, UNCOMPL 05/14/2016 SALOME STEVE Ot Z79.899 OTHER EXPEDITER CLERK (CURRENT) DRUG THERAPY 05/14/2016 SALOME STEVE Ot Z92.21 PERSONAL HISTORY OF ANTINEOPLASTIC CHEMO 05/14/2016 SALOME STEVE Ot Z92.3 PERSONAL HISTORY OF IRRADIATION 05/16/2016 NALINI JOHNS DO S Ot 246.2 CYST OF THYROID 05/16/2016 NALINI JOHNS DO S Ot 787.20 DYSPHAGIA, UNSPECIFIED 05/16/2016 STEF MAI MD Ot 241 .0 NONTOX UNINODULAR GOITER 05/16/2016 STEF MAI MD Ot 492 .8 EMPHYSEMA NEC 05/16/2016 STEF MAI MD Ot 784 .2 SWELLING IN HEAD NECK 05/16/2016 STEF MAI MD Ot 785 .6 ENLARGEMENT LYMPH NODES 05/16/2016 STEF MAI MD Ot 787.20 DYSPHAGIA, UNSPECIFIED 05/16/2016 STEF MAI MD Ot 240 .9 GOITER NOS 05/16/2016 SERGEI CUTELR, STEF Arriola Ot 780.79 OTH MALAISE FATIGUE 05/16/2016 SERGEI CUTLER, STEF Arriola Ot 784.42 DYSPHONIA 05/16/2016 JAMES CUTLER, ALBA Zamora Ot 401. 9 HYPERTENSION NOS 05/16/2016 JAMES CUTLER, ALBA Zamora Ot 414. 00 CORON ATHEROSCLER NOS TYPE VESSEL, NATIV 05/16/2016 JAMES CUTLER, ALBA Zamora Ot 794. 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 1 MALIG HILARIO SUPRAGLOTTIS 05/16/2016 LILLY LEE DO Ot V72. 63 PRE-PROCEDURAL LABORATORY EXAMINATION 05/16/2016 LILLY LEE DO Ot V72. 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 05/16/2016 KAYCEE HASSAN VOLLEYBALL PLAYER Ot 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 05/16/2016 KAYCEE HASSAN VOLLEYBALL PLAYER Ot 250.00 DIAB OLU WO COMPL, TYPE II OR UNSPEC TY 05/16/2016 KAYCEE HASSAN VOLLEYBALL PLAYER Ot 305.1 TOBACCO USE DISORDER 05/16/2016 KAYCEE HASSAN VOLLEYBALL PLAYER Ot 401.9 HYPERTENSION NOS 05/16/2016 KAYCEE HASSAN VOLLEYBALL PLAYER Ot 414.00 CORON ATHEROSCLER NOS TYPE VESSEL, NATIV 05/16/2016 KAYCEE HASSAN VOLLEYBALL PLAYER Ot 793.11 SOLITARY PULMONARY NODULE 05/16/2016 KAYCEE HASSAN VOLLEYBALL PLAYER Ot V45.81 AORTOCORONARY BYPASS 05/16/2016 KAYCEE HASSAN VOLLEYBALL PLAYER Ot V58.67 LONG-TERM (CURRENT) USE OF INSULIN 05/16/2016 KAYCEE HASSAN VOLLEYBALL PLAYER Ot V58.69 OT MED,LT,CURRENT USE 05/16/2016 KAYCEE HASSAN S VOLLEYBALL PLAYER Ot 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 05/16/2016 KAYCEE HASSAN S VOLLEYBALL PLAYER Ot 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 05/16/2016 KAYCEE HASSAN VOLLEYBALL PLAYER Ot 250.00 DIAB OLU WO COMPL, TYPE II OR UNSPEC TY 05/16/2016 KAYCEE HASSAN S VOLLEYBALL PLAYER Ot 305.1 TOBACCO USE DISORDER 05/16/2016 TONJA HASSANAH S VOLLEYBALL PLAYER Ot 401.9 HYPERTENSION NOS 05/16/2016 HASSANKAYCEE Marinelli S VOLLEYBALL PLAYER Ot 414.00 CORON ATHEROSCLER NOS TYPE VESSEL, NATIV 05/16/2016 KAYCEE HASSAN S VOLLEYBALL PLAYER Ot 793.11 SOLITARY PULMONARY NODULE 05/16/2016 KAYCEE HASSAN S VOLLEYBALL PLAYER Ot V45.81 AORTOCORONARY BYPASS 05/16/2016 KAYCEE HASSAN S VOLLEYBALL PLAYER Ot V58.67 LONG-TERM (CURRENT) USE OF INSULIN 05/16/2016 KAYCEE HASSAN S VOLLEYBALL PLAYER Ot V58.69 OTH MED,LT,CURRENT USE 05/16/2016 TONJA HASSANAH S VOLLEYBALL PLAYER Ot 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 05/16/2016 HASSAN, HILAH S VOLLEYBALL PLAYER Ot 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 05/16/2016 KAYCEE HASSAN S VOLLEYBALL PLAYER Ot 250.00 DIAB OLU WO COMPL, TYPE II OR UNSPEC TY 05/16/2016 TONJA HASSANAH S VOLLEYBALL PLAYER Ot 305.1 TOBACCO USE DISORDER 05/16/2016 KAYCEE HASSAN S VOLLEYBALL PLAYER Ot 401.9 HYPERTENSION NOS 05/16/2016 KAYCEE HASSAN S VOLLEYBALL PLAYER Ot 414.00 CORON ATHEROSCLER NOS TYPE VESSEL, NATIV 05/16/2016 KAYCEE HASSAN S VOLLEYBALL PLAYER Ot 793.11 SOLITARY PULMONARY NODULE 05/16/2016 KAYCEE HASSAN S VOLLEYBALL PLAYER Ot V45.81 AORTOCORONARY BYPASS 05/16/2016 KAYCEE HASSAN S VOLLEYBALL PLAYER Ot V58.67 LONG-TERM (CURRENT) USE OF INSULIN 05/16/2016 TONJA HASSANAH S VOLLEYBALL PLAYER Ot V58.69 OTH MED,LT,CURRENT USE 05/16/2016 HASSANTONJAAH S VOLLEYBALL PLAYER Ot 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 05/16/2016 HASSAN HILAH S VOLLEYBALL PLAYER Ot 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 05/16/2016 HASSAN, HILAH S VOLLEYBALL PLAYER Ot 250.00 DIAB OLU WO COMPL, TYPE II OR UNSPEC TY 05/16/2016 HASSAN, HILAH S VOLLEYBALL PLAYER Ot 305.1 TOBACCO USE DISORDER 05/16/2016 KAYCEE HASSAN S VOLLEYBALL PLAYER Ot 401.9 HYPERTENSION NOS 05/16/2016 KAYCEE HASSAN S VOLLEYBALL PLAYER Ot 414.00 CORON ATHEROSCLER NOS TYPE VESSEL, NATIV 05/16/2016 KAYCEE HASSAN S VOLLEYBALL PLAYER Ot 793.11 SOLITARY PULMONARY NODULE 05/16/2016 KAYCEE HASSAN S VOLLEYBALL PLAYER Ot V45.81 AORTOCORONARY BYPASS 05/16/2016 KAYCEE HASSAN S VOLLEYBALL PLAYER Ot V58.67 LONG-TERM (CURRENT) USE OF INSULIN 05/16/2016 KAYCEE HASSAN S VOLLEYBALL PLAYER Ot V58.69 OTH MED,LT,CURRENT USE 05/16/2016 KAYCEE HASSAN S VOLLEYBALL PLAYER Ot 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 05/16/2016 KAYCEE HASSAN S VOLLEYBALL PLAYER Ot 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 05/16/2016 KAYCEE HASSAN S VOLLEYBALL PLAYER Ot 250.00 DIAB OLU WO COMPL, TYPE II OR UNSPEC TY 05/16/2016 KAYCEE HASSAN S VOLLEYBALL PLAYER Ot 305.1 TOBACCO USE DISORDER 05/16/2016 KAYCEE HASSAN S VOLLEYBALL PLAYER Ot 401.9 HYPERTENSION NOS 05/16/2016 KAYCEE HASSAN S VOLLEYBALL PLAYER Ot 414.00 CORON ATHEROSCLER NOS TYPE VESSEL, NATIV 05/16/2016 KAYCEE HASSAN VOLLEYBALL PLAYER Ot 793.11 SOLITARY PULMONARY NODULE 05/16/2016 KAYCEE HASSAN VOLLEYBALL PLAYER Ot V45.81 AORTOCORONARY BYPASS 05/16/2016 KAYCEE HASSAN VOLLEYBALL PLAYER Ot V58.67 LONG-TERM (CURRENT) USE OF INSULIN 05/16/2016 KAYCEE HASSAN S VOLLEYBALL PLAYER Ot V58.69 OTH MED,LT,CURRENT USE 05/16/2016 KAYCEE HASSAN S VOLLEYBALL PLAYER Ot 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 05/16/2016 TONJA HASSANAH S VOLLEYBALL PLAYER Ot 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 05/16/2016 TONJA HASSANAH S VOLLEYBALL PLAYER Ot 250.00 DIAB OLU WO COMPL, TYPE II OR UNSPEC TY 05/16/2016 TONJA HASSANAH S VOLLEYBALL PLAYER Ot 305.1 TOBACCO USE DISORDER 05/16/2016 KAYCEE HASSAN S VOLLEYBALL PLAYER Ot 401.9 HYPERTENSION NOS 05/16/2016 KAYCEE HASSAN VOLLEYBALL PLAYER Ot 414.00 CORON ATHEROSCLER NOS TYPE VESSEL, NATIV 05/16/2016 KAYCEE HASSAN VOLLEYBALL PLAYER Ot 4 96 CHR AIRWAY OBSTRUCT NEC 05/16/2016 KAYCEE HASSAN VOLLEYBALL PLAYER Ot 793.11 SOLITARY PULMONARY NODULE 05/16/2016 KAYCEE HASSAN VOLLEYBALL PLAYER Ot V45.81 AORTOCORONARY BYPASS 05/16/2016 KAYCEE HASSAN VOLLEYBALL PLAYER Ot V58.67 LONG-TERM (CURRENT) USE OF INSULIN 05/16/2016 KAYCEE HASSAN VOLLEYBALL PLAYER Ot V58.69 OTH MED,LT,CURRENT USE 05/16/2016 POWERSALOME N Ot 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 05/16/2016 POWERSALOME N Ot 496 CHR AIRWAY OBSTRUCT NEC 05/16/2016 PIOTR STEVEBRANDO N Ot 787.20 DYSPHAGIA, UNSPECIFIED 05/16/2016 POWER SALOME N Ot 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 05/16/2016 ZAK BUCIO VOLLEYBALL PLAYER Ot 250.02 DIAB OLU WO COMPL, TYPE II OR UNSPEC TY 05/16/2016 KAYCEE HASSAN S VOLLEYBALL PLAYER Ot 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 05/16/2016 KAYCEE HASSAN S VOLLEYBALL PLAYER Ot 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 05/16/2016 KAYCEE HASSAN S VOLLEYBALL PLAYER Ot 250.00 DIAB OLU WO COMPL, TYPE II OR UNSPEC TY 05/16/2016 KAYCEE HASSAN S VOLLEYBALL PLAYER Ot 305.1 TOBACCO USE DISORDER 05/16/2016 KAYCEE HASSAN VOLLEYBALL PLAYER Ot 401.9 HYPERTENSION NOS 05/16/2016 KAYCEE HASSAN VOLLEYBALL PLAYER Ot 414.00 CORON ATHEROSCLER NOS TYPE VESSEL, NATIV 05/16/2016 KAYCEE HASSAN VOLLEYBALL PLAYER Ot 4 96 CHR AIRWAY OBSTRUCT NEC 05/16/2016 KAYCEE HASSAN VOLLEYBALL PLAYER Ot 793.11 SOLITARY PULMONARY NODULE 05/16/2016 KAYCEE HASSAN VOLLEYBALL PLAYER Ot V45.81 AORTOCORONARY BYPASS 05/16/2016 KAYCEE HASSAN VOLLEYBALL PLAYER Ot V58.67 LONG-TERM (CURRENT) USE OF INSULIN 05/16/2016 KAYCEE HASSAN VOLLEYBALL PLAYER Ot V58.69 OTH MED,LT,CURRENT USE 05/16/2016 KAYCEE HASSAN S VOLLEYBALL PLAYER Ot 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 05/16/2016 KAYCEE HASSAN S VOLLEYBALL PLAYER Ot 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 05/16/2016 KAYCEE HASSAN S VOLLEYBALL PLAYER Ot 250.00 DIAB OLU WO COMPL, TYPE II OR UNSPEC TY 05/16/2016 HASSANKAYCEE Marinelli S VOLLEYBALL PLAYER Ot 305.1 TOBACCO USE DISORDER 05/16/2016 KAYCEE HASSAN S VOLLEYBALL PLAYER Ot 401.9 HYPERTENSION NOS 05/16/2016 KAYCEE HASSAN S VOLLEYBALL PLAYER Ot 414.00 CORON ATHEROSCLER NOS TYPE VESSEL, NATIV 05/16/2016 KAYCEE HASSAN S VOLLEYBALL PLAYER Ot 4 96 CHR AIRWAY OBSTRUCT NEC 05/16/2016 KAYCEE HASSAN VOLLEYBALL PLAYER Ot 793.11 SOLITARY PULMONARY NODULE 05/16/2016 KAYCEE HASSAN VOLLEYBALL PLAYER Ot V45.81 AORTOCORONARY BYPASS 05/16/2016 KAYCEE HASSAN VOLLEYBALL PLAYER Ot V58.67 LONG-TERM (CURRENT) USE OF INSULIN 05/16/2016 KAYCEE HASSAN VOLLEYBALL PLAYER Ot V58.69 OTH MED,LT,CURRENT USE 05/16/2016 KAYCEE HASSAN VOLLEYBALL PLAYER Ot 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 4 HYPERLIPIDEMIA NEC/NOS 05/16/2016 KYLIE TAYLOR MD Ot 401. 9 HYPERTENSION NOS 05/16/2016 KYLIE TAYLOR MD Ot 414. 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 05/16/2016 KAYCEE HASSAN S VOLLEYBALL PLAYER Ot 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 05/16/2016 KAYCEE HASSAN S VOLLEYBALL PLAYER Ot 250.00 DIAB OLU WO COMPL, TYPE II OR UNSPEC TY 05/16/2016 KAYCEE HASSAN S VOLLEYBALL PLAYER Ot 305.1 TOBACCO USE DISORDER 05/16/2016 HASSANKAYCEE Marinelli S VOLLEYBALL PLAYER Ot 401.9 HYPERTENSION NOS 05/16/2016 KAYCEE HASSAN S VOLLEYBALL PLAYER Ot 414.00 CORON ATHEROSCLER NOS TYPE VESSEL, NATIV 05/16/2016 KAYCEE HASSAN S VOLLEYBALL PLAYER Ot 4 96 CHR AIRWAY OBSTRUCT NEC 05/16/2016 KAYCEE HASSAN S VOLLEYBALL PLAYER Ot 793.11 SOLITARY PULMONARY NODULE 05/16/2016 KAYCEE HASSAN S VOLLEYBALL PLAYER Ot V45.81 AORTOCORONARY BYPASS 05/16/2016 KAYCEE HASSAN S VOLLEYBALL PLAYER Ot V58.67 LONG-TERM (CURRENT) USE OF INSULIN 05/16/2016 KAYCEE HASSAN S VOLLEYBALL PLAYER Ot V58.69 OTH MED,LT,CURRENT USE 05/16/2016 KAYCEE HASSAN S VOLLEYBALL PLAYER Ot 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 05/16/2016 KAYCEE HASSAN S VOLLEYBALL PLAYER Ot 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 05/16/2016 KAYCEE HASSAN S VOLLEYBALL PLAYER Ot 250.00 DIAB OLU WO COMPL, TYPE II OR UNSPEC TY 05/16/2016 TONJA HASSANAH S VOLLEYBALL PLAYER Ot 305.1 TOBACCO USE DISORDER 05/16/2016 KAYCEE HASSAN S VOLLEYBALL PLAYER Ot 401.9 HYPERTENSION NOS 05/16/2016 KAYCEE HASSAN S VOLLEYBALL PLAYER Ot 414.00 CORON ATHEROSCLER NOS TYPE VESSEL, NATIV 05/16/2016 KAYCEE HASSAN VOLLEYBALL PLAYER Ot 4 96 CHR AIRWAY OBSTRUCT NEC 05/16/2016 KAYCEE HASSAN S VOLLEYBALL PLAYER Ot 793.11 SOLITARY PULMONARY NODULE 05/16/2016 KAYCEE HASSAN S VOLLEYBALL PLAYER Ot V45.81 AORTOCORONARY BYPASS 05/16/2016 KAYCEE HASSAN S VOLLEYBALL PLAYER Ot V58.67 LONG-TERM (CURRENT) USE OF INSULIN 05/16/2016 KAYCEE HASSAN S VOLLEYBALL PLAYER Ot V58.69 OTH MED,LT,CURRENT USE 05/16/2016 KAYCEE HASSAN S VOLLEYBALL PLAYER Ot V58.81 FIT/ADJ VASCULAR CATHETER 05/16/2016 KAYCEE HASSAN S VOLLEYBALL PLAYER Ot 141.9 MALIG HILARIO TONGUE NOS 05/16/2016 KAYCEE HASSAN S VOLLEYBALL PLAYER Ot 793.11 SOLITARY PULMONARY NODULE 05/16/2016 Ot 786.6 CHES T SWELLING/MASS/LUMP 05/16/2016 Ot V72.63 PRE -PROCEDURAL LABORATORY EXAMINATION 05/16/2016 Ot V72.81 [id number]-[id number] CARDIOVASCULAR 05/16/2016 Ot V72.83 EXA M PRE- OPERATIVE NEC 05/16/2016 DARIAN JESSICA MD Ot 162. 9 MAL HILARIO BRONCH/LUNG NOS 05/16/2016 DARIAN JESSICA MD Ot 414. 01 CORONARY ATHEROSCLEROSIS OF [place] CORON 05/16/2016 DARIAN JESSICA MD Ot 782. 3 EDEMA 05/16/2016 SALOME STEVE Ot 793.11 SOLITARY PULMONARY NODULE 05/16/2016 KYLIE TAYLOR MD Ot 250. 00 DIAB OLU WO COMPL, TYPE II OR UNSPEC TY 05/16/2016 KYLIE TAYLOR MD Ot 401. 9 HYPERTENSION NOS 05/16/2016 KYLIE TAYLOR MD Ot 414. 00 CORON ATHEROSCLER NOS TYPE VESSEL, NATIV 05/16/2016 KYLIE TAYLRO MD Ot 428. 0 CONGESTIVE HEART FAILURE NOS 05/16/2016 KYLIE TAYLOR MD Ot V58. 67 LONG-TERM (CURRENT) USE OF INSULIN 05/16/2016 KAYCEE HASSAN VOLLEYBALL PLAYER Ot 162.9 MAL HILARIO BRONCH/LUNG NOS 05/16/2016 KAYCEE HASSAN Ot C34.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 05/16/2016 KAYCEE HASSAN VOLLEYBALL PLAYER Ot 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 OF SUPRAGLOTTIS 05/16/2016 KAYCEE HASSAN Ot Z12.31 ENCNTR SCREEN MAMMOGRAM FOR MALIGNANT NE 05/16/2016 KAYCEE HASSANP Ot 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 OF SUPRAGLOTTIS 05/16/2016 LILLY LEE DO Ot Z01.818 ENCOUNTER FOR OTHER PREPROCEDURAL EXAMIN 05/16/2016 SALOME STEVE Ot 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 OF SUPRAGLOTTIS 05/16/2016 LILIAN TREJO DO Ot C32. 1 MALIGNANT NEOPLASM OF SUPRAGLOTTIS 05/16/2016 LILIAN TREJO DO Ot C34. 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 NEOPLASM OF UPPER LOBE, LEFT B 05/16/2016 LILIAN TREJO DO M Ot C32. 1 MALIGNANT NEOPLASM OF SUPRAGLOTTIS 05/16/2016 LILIAN TREJO DO Ot C34. 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 NEOPLASM OF UPPER LOBE, LEFT B 05/16/2016 SALOME STEVE Miguel A Ot 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 OF SUPRAGLOTTIS 05/16/2016 SALOME STEVE Miguel A Ot C34.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 NEOPLASM OF UPPER LOBE, LEFT B 05/16/2016 SALOME STEVE Miguel A Ot F17.210 NICOTINE DEPENDENCE, CIGARETTES, UNCOMPL 05/16/2016 SALOME STEVE Miguel A Ot Z79.899 OTHER RETIREMENT (CURRENT) DRUG THERAPY 05/16/2016 SALOME STEVE Miguel A Ot Z92.21 PERSONAL HISTORY OF ANTINEOPLASTIC CHEMO 05/16/2016 SALOME STEVE Miguel A Ot Z92.3 PERSONAL HISTORY OF IRRADIATION 05/16/2016 KAYCEE HASSAN VOLLEYBALL PLAYER Ot 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 OF SUPRAGLOTTIS 05/16/2016 KAYCEE HASSAN VOLLEYBALL PLAYER Ot C34.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 NEOPLASM OF UPPER LOBE, LEFT B 05/16/2016 KAYCEE HASSAN VOLLEYBALL PLAYER Ot M25.552 PAIN IN LEFT HIP 05/16/2016 ADELE CUTLER, ANAIS Nicholas Ot 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 OF SUPRAGLOTTIS 05/16/2016 ANAIS ANGULO MD Ot Z09 ENCNTR FOR F/U EXAM AFT TRTMT FOR COND O 05/16/2016 ANAIS ANGULO MD Ot Z96.8 9 PRESENCE OF OTHER SPECIFIED FUNCTIONAL I 05/17/2016 SERGEI CUTLER, STEF Arriola Ot C32 .1 MALIGNANT NEOPLASM OF SUPRAGLOTTIS 05/23/2016 SALOME STEVE Miguel A Ot 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 OF SUPRAGLOTTIS 05/23/2016 SALOME STEVE Miguel A Ot C34.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 NEOPLASM OF UPPER LOBE, LEFT B 05/23/2016 SALOME SETVE Miguel A Ot F17.210 NICOTINE DEPENDENCE, CIGARETTES, UNCOMPL 05/23/2016 SALOME STEVE Miguel A Ot Z79.899 OTHER RETIREMENT (CURRENT) DRUG THERAPY 05/23/2016 SALOME STEVE Miguel A Ot Z92.21 PERSONAL HISTORY OF ANTINEOPLASTIC CHEMO 05/23/2016 SALOME STEVE Miguel A Ot Z92.3 PERSONAL HISTORY OF IRRADIATION 05/28/2016 ROBERTO CLANCY VOLLEYBALL PLAYER Ot Z12.31 ENCNTR SCREEN MAMMOGRAM FOR MALIGNANT NE 05/29/2016 MADROBERTO Farley VOLLEYBALL PLAYER Ot Z12.31 ENCNTR SCREEN MAMMOGRAM FOR MALIGNANT NE 05/29/2016 MADLROBERTO VOLLEYBALL PLAYER Ot Z12.31 ENCNTR SCREEN MAMMOGRAM FOR MALIGNANT NE 06/13/2016 SERGEI CUTLER, STEF Arriola Ot C32 .1 MALIGNANT NEOPLASM OF SUPRAGLOTTIS 06/18/2016 STEF MAI MD Ot C32 .1 MALIGNANT NEOPLASM OF SUPRAGLOTTIS 06/25/2016 JEZMiguelitoROBERTO VOLLEYBALL PLAYER Ot Z12.31 ENCNTR SCREEN MAMMOGRAM FOR MALIGNANT NE 07/01/2016 SALOME STEVE Miguel A Ot 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 OF SUPRAGLOTTIS 07/01/2016 SALOME STEVE Miguel A Ot C34.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 NEOPLASM OF UPPER LOBE, LEFT B 07/01/2016 SALOME STEVE Miguel A Ot F17.210 NICOTINE DEPENDENCE, CIGARETTES, UNCOMPL 07/01/2016 SALOME STEVE Miguel A Ot Z79.899 OTHER EXPEDITER CLERK (CURRENT) DRUG THERAPY 07/01/2016 SALOME STEVE Miguel A Ot Z92.21 PERSONAL HISTORY OF ANTINEOPLASTIC CHEMO 07/01/2016 POWER SALOME Grady Ot Z92.3 PERSONAL HISTORY OF IRRADIATION 07/02/2016 SALOME STEVE Miguel A Ot 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 OF SUPRAGLOTTIS 07/02/2016 SALOME STEVE Miguel A Ot C34.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 NEOPLASM OF UPPER LOBE, LEFT B 07/02/2016 SALOME STEVE Miguel A Ot F17.210 NICOTINE DEPENDENCE, CIGARETTES, UNCOMPL 07/02/2016 SALOME STEVE Miguel A Ot Z79.899 OTHER RETIREMENT (CURRENT) DRUG THERAPY 07/02/2016 SALOME STEVE Miguel A Ot Z92.21 PERSONAL HISTORY OF ANTINEOPLASTIC CHEMO 07/02/2016 POWER SALOME Grady Ot Z92.3 PERSONAL HISTORY OF IRRADIATION 07/03/2016 LILLY LEE DO Ot L72. 9 FOLLICULAR CYST OF THE SKIN AND SUBCUTAN 07/03/2016 LILLY LEE DO Ot Z01.818 ENCOUNTER FOR OTHER PREPROCEDURAL EXAMIN 07/04/2016 LILLY LEE DO Ot L72. 9 FOLLICULAR CYST OF THE SKIN AND SUBCUTAN 07/04/2016 LILLY LEE DO Ot Z01.818 ENCOUNTER FOR OTHER PREPROCEDURAL EXAMIN 07/04/2016 LILLY LEE DO Ot L72. 0 EPIDERMAL CYST 08/06/2016 SALOME STEVE Miguel A Ot 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 OF SUPRAGLOTTIS 08/06/2016 POWER SALOME Grady Ot C34.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 NEOPLASM OF UPPER LOBE, LEFT B 08/06/2016 SALOME STEVE Miguel A Ot F17.210 NICOTINE DEPENDENCE, CIGARETTES, UNCOMPL 08/06/2016 SALOME STEVE Miguel A Ot Z79.899 OTHER EXPEDITER CLERK (CURRENT) DRUG THERAPY 08/06/2016 POWER SALOME Grady Ot Z92.21 PERSONAL HISTORY OF ANTINEOPLASTIC CHEMO 08/06/2016 POWER SALOME Grady Ot Z92.3 PERSONAL HISTORY OF IRRADIATION 08/17/2016 SERGEI CUTLER, STEF Arriola Ot C32 .1 MALIGNANT NEOPLASM OF SUPRAGLOTTIS 09/05/2016 POWER SALOME Grady Ot 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 OF SUPRAGLOTTIS 09/05/2016 POWERSALOME Ot C34.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 NEOPLASM OF UPPER LOBE, LEFT B 09/05/2016 POWER SALOME Grady Ot F17.210 NICOTINE DEPENDENCE, CIGARETTES, UNCOMPL 09/05/2016 POWER PIOTRBRANDO Miguel A Ot Z45.2 ENCOUNTER FOR ADJUSTMENT AND MANAGEMENT 09/05/2016 POWER PIOTRBRANDO Miguel A Ot Z79.899 OTHER EXPEDITER CLERK (CURRENT) DRUG THERAPY 09/05/2016 POWER SALOME Grady Ot Z92.21 PERSONAL HISTORY OF ANTINEOPLASTIC CHEMO 09/05/2016 POWER SALOME Grady Ot Z92.3 PERSONAL HISTORY OF IRRADIATION 09/11/2016 POWER SALOME Grady Ot 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 OF SUPRAGLOTTIS 09/11/2016 POWER SALOME Grady Ot C34.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 NEOPLASM OF UPPER LOBE, LEFT B 09/11/2016 POWER SALOME Grady Ot F17.210 NICOTINE DEPENDENCE, CIGARETTES, UNCOMPL 09/11/2016 POWER SALOME Grady Ot Z45.2 ENCOUNTER FOR ADJUSTMENT AND MANAGEMENT 09/11/2016 POWER SALOME Grady Ot Z79.899 OTHER EXPEDITER CLERK (CURRENT) DRUG THERAPY 09/11/2016 POWER SALOME Grady Ot Z92.21 PERSONAL HISTORY OF ANTINEOPLASTIC CHEMO 09/11/2016 SALOME STEVE Miguel A Ot Z92.3 PERSONAL HISTORY OF IRRADIATION 09/17/2016 NALINI JOHNS DO Ot 246.2 CYST OF THYROID 09/17/2016 NALINI JOHNS DO Ot 787.20 DYSPHAGIA, UNSPECIFIED 09/17/2016 STEF MAI MD Ot 241 .0 NONTOX UNINODULAR GOITER 09/17/2016 STEF MAI MD Ot 492 .8 EMPHYSEMA NEC 09/17/2016 STEF MAI MD Ot 784 .2 SWELLING IN HEAD NECK 09/17/2016 STEF MAI MD Ot 785 .6 ENLARGEMENT LYMPH NODES 09/17/2016 STEF MAI MD Ot 787.20 DYSPHAGIA, UNSPECIFIED 09/17/2016 STEF MAI MD Ot 240 .9 GOITER NOS 09/17/2016 STEF MAI MD Ot 780.79 OTH MALAISE FATIGUE 09/17/2016 STEF MAI MD Ot 784.42 DYSPHONIA 09/17/2016 ALBA RAMIREZ MD Ot 401. 9 HYPERTENSION NOS 09/17/2016 ALBA RAMIREZ MD Ot 414. 00 CORON ATHEROSCLER NOS TYPE VESSEL, NATIV 09/17/2016 ALBA RAMIREZ MD Ot 794. 30 ABN CARDIOVASC STUDY NOS 09/17/2016 SHARLENE CUTLER, MAGAN E Ot 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 09/17/2016 LILLY LEE DO Ot 161. 1 MALIG HILARIO SUPRAGLOTTIS 09/17/2016 LILLY LEE DO Ot V72. 63 PRE-PROCEDURAL LABORATORY EXAMINATION 09/17/2016 LILLY LEE DO Ot V72. 84 EXAM PRE-OPERATIVE NOS 09/17/2016 KAYCEE HASSAN VOLLEYBALL PLAYER Ot 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 09/17/2016 KAYCEE HASSAN VOLLEYBALL PLAYER Ot 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 09/17/2016 KAYCEE HASSAN VOLLEYBALL PLAYER Ot 250.00 DIAB OLU WO COMPL, TYPE II OR UNSPEC TY 09/17/2016 KAYCEE HASSAN VOLLEYBALL PLAYER Ot 305.1 TOBACCO USE DISORDER 09/17/2016 KAYCEE HASSAN VOLLEYBALL PLAYER Ot 401.9 HYPERTENSION NOS 09/17/2016 HASSAN, HILAH S VOLLEYBALL PLAYER Ot 414.00 CORON ATHEROSCLER NOS TYPE VESSEL, NATIV 09/17/2016 KAYCEE HASSAN S VOLLEYBALL PLAYER Ot 793.11 SOLITARY PULMONARY NODULE 09/17/2016 KAYCEE HASSAN S VOLLEYBALL PLAYER Ot V45.81 AORTOCORONARY BYPASS 09/17/2016 KAYCEE HASSAN S VOLLEYBALL PLAYER Ot V58.67 LONG-TERM (CURRENT) USE OF INSULIN 09/17/2016 KAYCEE HASSAN S VOLLEYBALL PLAYER Ot V58.69 OTH MED,LT,CURRENT USE 09/17/2016 KAYCEE HASSAN S VOLLEYBALL PLAYER Ot 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 09/17/2016 KAYCEE HASSAN S VOLLEYBALL PLAYER Ot 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 09/17/2016 TONJA HASSANAH S VOLLEYBALL PLAYER Ot 250.00 DIAB OLU WO COMPL, TYPE II OR UNSPEC TY 09/17/2016 KAYCEE HASSAN S VOLLEYBALL PLAYER Ot 305.1 TOBACCO USE DISORDER 09/17/2016 KAYCEE HASSAN S VOLLEYBALL PLAYER Ot 401.9 HYPERTENSION NOS 09/17/2016 KAYCEE HASSAN S VOLLEYBALL PLAYER Ot 414.00 CORON ATHEROSCLER NOS TYPE VESSEL, NATIV 09/17/2016 KAYCEE HASSAN S VOLLEYBALL PLAYER Ot 793.11 SOLITARY PULMONARY NODULE 09/17/2016 KAYCEE HASSAN VOLLEYBALL PLAYER Ot V45.81 AORTOCORONARY BYPASS 09/17/2016 KAYCEE HASSAN S VOLLEYBALL PLAYER Ot V58.67 LONG-TERM (CURRENT) USE OF INSULIN 09/17/2016 KAYCEE HASSAN S VOLLEYBALL PLAYER Ot V58.69 OTH MED,LT,CURRENT USE 09/17/2016 KAYCEE HASSAN S VOLLEYBALL PLAYER Ot 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 09/17/2016 KAYCEE HASSAN S VOLLEYBALL PLAYER Ot 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 09/17/2016 TONJA HASSANAH S VOLLEYBALL PLAYER Ot 250.00 DIAB OLU WO COMPL, TYPE II OR UNSPEC TY 09/17/2016 TONJA HASSANAH S VOLLEYBALL PLAYER Ot 305.1 TOBACCO USE DISORDER 09/17/2016 TONJA HASSANAH S VOLLEYBALL PLAYER Ot 401.9 HYPERTENSION NOS 09/17/2016 TONJA HASSANAH S VOLLEYBALL PLAYER Ot 414.00 CORON ATHEROSCLER NOS TYPE VESSEL, NATIV 09/17/2016 KAYCEE HASSAN S VOLLEYBALL PLAYER Ot 793.11 SOLITARY PULMONARY NODULE 09/17/2016 KAYCEE HASSAN S VOLLEYBALL PLAYER Ot V45.81 AORTOCORONARY BYPASS 09/17/2016 KAYCEE HASSAN S VOLLEYBALL PLAYER Ot V58.67 LONG-TERM (CURRENT) USE OF INSULIN 09/17/2016 KAYCEE HASSAN S VOLLEYBALL PLAYER Ot V58.69 OTH MED,LT,CURRENT USE 09/17/2016 KAYCEE HASSAN S VOLLEYBALL PLAYER Ot 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 09/17/2016 KAYCEE HASSAN S VOLLEYBALL PLAYER Ot 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 09/17/2016 KAYCEE HASSAN S VOLLEYBALL PLAYER Ot 250.00 DIAB OLU WO COMPL, TYPE II OR UNSPEC TY 09/17/2016 SONYA HILAH S VOLLEYBALL PLAYER Ot 305.1 TOBACCO USE DISORDER 09/17/2016 TONJA HASSANAH S VOLLEYBALL PLAYER Ot 401.9 HYPERTENSION NOS 09/17/2016 TONJA HASSANAH S VOLLEYBALL PLAYER Ot 414.00 CORON ATHEROSCLER NOS TYPE VESSEL, NATIV 09/17/2016 KAYCEE HASSAN S VOLLEYBALL PLAYER Ot 793.11 SOLITARY PULMONARY NODULE 09/17/2016 KAYCEE HASSAN S VOLLEYBALL PLAYER Ot V45.81 AORTOCORONARY BYPASS 09/17/2016 KAYCEE HASSAN S VOLLEYBALL PLAYER Ot V58.67 LONG-TERM (CURRENT) USE OF INSULIN 09/17/2016 KAYCEE HASSAN S VOLLEYBALL PLAYER Ot V58.69 OTH MED,LT,CURRENT USE 09/17/2016 KAYCEE HASSAN S VOLLEYBALL PLAYER Ot 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 09/17/2016 KAYCEE HASSAN S VOLLEYBALL PLAYER Ot 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 09/17/2016 TONJA HASSANAH S VOLLEYBALL PLAYER Ot 250.00 DIAB OLU WO COMPL, TYPE II OR UNSPEC TY 09/17/2016 TONJA HASSANAH S VOLLEYBALL PLAYER Ot 305.1 TOBACCO USE DISORDER 09/17/2016 SONYA HILAH S VOLLEYBALL PLAYER Ot 401.9 HYPERTENSION NOS 09/17/2016 HASSAN, HILAH S VOLLEYBALL PLAYER Ot 414.00 CORON ATHEROSCLER NOS TYPE VESSEL, NATIV 09/17/2016 KAYCEE HASSAN S VOLLEYBALL PLAYER Ot 793.11 SOLITARY PULMONARY NODULE 09/17/2016 KAYCEE HASSAN S VOLLEYBALL PLAYER Ot V45.81 AORTOCORONARY BYPASS 09/17/2016 KAYCEE HASSAN VOLLEYBALL PLAYER Ot V58.67 LONG-TERM (CURRENT) USE OF INSULIN 09/17/2016 KAYCEE HASSAN S VOLLEYBALL PLAYER Ot V58.69 OTH MED,LT,CURRENT USE 09/17/2016 KAYCEE HASSAN S VOLLEYBALL PLAYER Ot 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 09/17/2016 KAYCEE HASSAN S VOLLEYBALL PLAYER Ot 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 09/17/2016 KAYCEE HASSAN S VOLLEYBALL PLAYER Ot 250.00 DIAB OLU WO COMPL, TYPE II OR UNSPEC TY 09/17/2016 KAYCEE HASSAN S VOLLEYBALL PLAYER Ot 305.1 TOBACCO USE DISORDER 09/17/2016 KAYCEE HASSAN S VOLLEYBALL PLAYER Ot 401.9 HYPERTENSION NOS 09/17/2016 KAYCEE HASSAN S VOLLEYBALL PLAYER Ot 414.00 CORON ATHEROSCLER NOS TYPE VESSEL, NATIV 09/17/2016 KAYCEE HASSAN S VOLLEYBALL PLAYER Ot 4 96 CHR AIRWAY OBSTRUCT NEC 09/17/2016 KAYCEE HASSAN S VOLLEYBALL PLAYER Ot 793.11 SOLITARY PULMONARY NODULE 09/17/2016 KAYCEE HASSAN S VOLLEYBALL PLAYER Ot V45.81 AORTOCORONARY BYPASS 09/17/2016 TONJA HASSANBOB S VOLLEYBALL PLAYER Ot V58.67 LONG-TERM (CURRENT) USE OF INSULIN 09/17/2016 KAYCEE HASSAN VOLLEYBALL PLAYER Ot V58.69 OTH MED,LT,CURRENT USE 09/17/2016 SALOME STEVE Ot 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 09/17/2016 SALOME STEVE Ot 496 CHR AIRWAY OBSTRUCT NEC 09/17/2016 SALOME STEVE Ot 787.20 DYSPHAGIA, UNSPECIFIED 09/17/2016 SALOME STEVE Ot 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 09/17/2016 ZAK BUCIO VOLLEYBALL PLAYER Ot 250.02 DIAB OLU WO COMPL, TYPE II OR UNSPEC TY 09/17/2016 KAYCEE HASSAN S VOLLEYBALL PLAYER Ot 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 09/17/2016 KAYCEE HASSAN S VOLLEYBALL PLAYER Ot 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 09/17/2016 KAYCEE HASSAN S VOLLEYBALL PLAYER Ot 250.00 DIAB OLU WO COMPL, TYPE II OR UNSPEC TY 09/17/2016 KAYCEE HASSAN S VOLLEYBALL PLAYER Ot 305.1 TOBACCO USE DISORDER 09/17/2016 KAYCEE HASSAN S VOLLEYBALL PLAYER Ot 401.9 HYPERTENSION NOS 09/17/2016 TONJA HASSANAH S VOLLEYBALL PLAYER Ot 414.00 CORON ATHEROSCLER NOS TYPE VESSEL, NATIV 09/17/2016 KAYCEE HASSAN S VOLLEYBALL PLAYER Ot 4 96 CHR AIRWAY OBSTRUCT NEC 09/17/2016 KAYCEE HASSAN S VOLLEYBALL PLAYER Ot 793.11 SOLITARY PULMONARY NODULE 09/17/2016 KAYCEE HASSAN S VOLLEYBALL PLAYER Ot V45.81 AORTOCORONARY BYPASS 09/17/2016 KAYCEE HASSAN S VOLLEYBALL PLAYER Ot V58.67 LONG-TERM (CURRENT) USE OF INSULIN 09/17/2016 KAYCEE HASSAN S VOLLEYBALL PLAYER Ot V58.69 OTH MED,LT,CURRENT USE 09/17/2016 KAYCEE HASSAN S VOLLEYBALL PLAYER Ot 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 09/17/2016 KAYCEE HASSAN VOLLEYBALL PLAYER Ot 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 09/17/2016 KAYCEE HASSAN S VOLLEYBALL PLAYER Ot 250.00 DIAB OLU WO COMPL, TYPE II OR UNSPEC TY 09/17/2016 TONJA HASSANAH S VOLLEYBALL PLAYER Ot 305.1 TOBACCO USE DISORDER 09/17/2016 KAYCEE HASSAN S VOLLEYBALL PLAYER Ot 401.9 HYPERTENSION NOS 09/17/2016 KAYCEE HASSAN S VOLLEYBALL PLAYER Ot 414.00 CORON ATHEROSCLER NOS TYPE VESSEL, NATIV 09/17/2016 KAYCEE HASSAN S VOLLEYBALL PLAYER Ot 4 96 CHR AIRWAY OBSTRUCT NEC 09/17/2016 KAYCEE HASSAN S VOLLEYBALL PLAYER Ot 793.11 SOLITARY PULMONARY NODULE 09/17/2016 KAYCEE HASSAN S VOLLEYBALL PLAYER Ot V45.81 AORTOCORONARY BYPASS 09/17/2016 KAYCEE HASSAN S VOLLEYBALL PLAYER Ot V58.67 LONG-TERM (CURRENT) USE OF INSULIN 09/17/2016 KAYCEE HASSAN S VOLLEYBALL PLAYER Ot V58.69 OTH MED,LT,CURRENT USE 09/17/2016 KAYCEE HASSAN S VOLLEYBALL PLAYER Ot 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 4 HYPERLIPIDEMIA NEC/NOS 09/17/2016 KYLIE TAYLOR MD Ot 401. 9 HYPERTENSION NOS 09/17/2016 KYLIE TAYLOR MD Ot 414. 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 09/17/2016 KAYCEE HASSAN S VOLLEYBALL PLAYER Ot 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 09/17/2016 KAYCEE HASSAN S VOLLEYBALL PLAYER Ot 250.00 DIAB OLU WO COMPL, TYPE II OR UNSPEC TY 09/17/2016 KAYCEE HASSAN S VOLLEYBALL PLAYER Ot 305.1 TOBACCO USE DISORDER 09/17/2016 KAYCEE HASSAN S VOLLEYBALL PLAYER Ot 401.9 HYPERTENSION NOS 09/17/2016 KAYCEE HASSAN S VOLLEYBALL PLAYER Ot 414.00 CORON ATHEROSCLER NOS TYPE VESSEL, NATIV 09/17/2016 KAYCEE HASSAN VOLLEYBALL PLAYER Ot 4 96 CHR AIRWAY OBSTRUCT NEC 09/17/2016 KAYCEE HASSAN VOLLEYBALL PLAYER Ot 793.11 SOLITARY PULMONARY NODULE 09/17/2016 KAYCEE HASSAN VOLLEYBALL PLAYER Ot V45.81 AORTOCORONARY BYPASS 09/17/2016 KAYCEE HASSAN VOLLEYBALL PLAYER Ot V58.67 LONG-TERM (CURRENT) USE OF INSULIN 09/17/2016 KAYCEE HASSAN VOLLEYBALL PLAYER Ot V58.69 OT MED,LT,CURRENT USE 09/17/2016 KAYCEE HASSAN VOLLEYBALL PLAYER Ot 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 09/17/2016 KAYCEE HASSAN S VOLLEYBALL PLAYER Ot 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 09/17/2016 KAYCEE HASSAN S VOLLEYBALL PLAYER Ot 250.00 DIAB OLU WO COMPL, TYPE II OR UNSPEC TY 09/17/2016 TONJA HASSANAH S VOLLEYBALL PLAYER Ot 305.1 TOBACCO USE DISORDER 09/17/2016 KAYCEE HASSAN S VOLLEYBALL PLAYER Ot 401.9 HYPERTENSION NOS 09/17/2016 KAYCEE HASSAN S VOLLEYBALL PLAYER Ot 414.00 CORON ATHEROSCLER NOS TYPE VESSEL, NATIV 09/17/2016 KAYCEE HASSAN VOLLEYBALL PLAYER Ot 4 96 CHR AIRWAY OBSTRUCT NEC 09/17/2016 KAYCEE HASSAN VOLLEYBALL PLAYER Ot 793.11 SOLITARY PULMONARY NODULE 09/17/2016 KAYCEE HASSANP Ot V45.81 AORTOCORONARY BYPASS 09/17/2016 KAYCEE HASSAN VOLLEYBALL PLAYER Ot V58.67 LONG-TERM (CURRENT) USE OF INSULIN 09/17/2016 KAYCEE HASSAN VOLLEYBALL PLAYER Ot V58.69 OT MED,LT,CURRENT USE 09/17/2016 KAYCEE HASSAN VOLLEYBALL PLAYER Ot V58.81 FIT/ADJ VASCULAR CATHETER 09/17/2016 KAYCEE HASSANP Ot 141.9 MALIG HILARIO TONGUE NOS 09/17/2016 KAYCEE HASSANP Ot 793.11 SOLITARY PULMONARY NODULE 09/17/2016 Ot 786.6 CHES T SWELLING/MASS/LUMP 09/17/2016 Ot V72.63 PRE -PROCEDURAL LABORATORY EXAMINATION 09/17/2016 Ot V72.81 [id number] CARDIOVASCULAR 09/17/2016 Ot V72.83 EXA M PRE- OPERATIVE NEC 09/17/2016 DARIAN JESSICA MD Ot 162. 9 MAL HILARIO BRONCH/LUNG NOS 09/17/2016 DARIAN JESSICA MD Ot 414. 01 CORONARY ATHEROSCLEROSIS OF [place] CORON 09/17/2016 DARIAN JESSICA MD Ot 782. 3 EDEMA 09/17/2016 POWER SALOME Miguel A Ot 793.11 SOLITARY PULMONARY NODULE 09/17/2016 KYLIE TAYLOR MD Ot 250. 00 DIAB OLU WO COMPL, TYPE II OR UNSPEC TY 09/17/2016 KYLIE TAYLOR MD Ot 401. 9 HYPERTENSION NOS 09/17/2016 KYLIE TAYLOR MD Ot 414. 00 CORON ATHEROSCLER NOS TYPE VESSEL, NATIV 09/17/2016 KYLIE TAYLOR MD Ot 428. 0 CONGESTIVE HEART FAILURE NOS 09/17/2016 KYLIE TAYLOR MD Ot V58. 67 LONG-TERM (CURRENT) USE OF INSULIN 09/17/2016 KAYCEE HASSANP Ot 162.9 MAL HILARIO BRONCH/LUNG NOS 09/17/2016 KAYCEE HASSANP Ot C34.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 09/17/2016 KAYCEE HASSAN VOLLEYBALL PLAYER Ot 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 OF SUPRAGLOTTIS 09/17/2016 KAYCEE HASSANP Ot Z12.31 ENCNTR SCREEN MAMMOGRAM FOR MALIGNANT NE 09/17/2016 KAYCEE HASSAN VOLLEYBALL PLAYER Ot 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 OF SUPRAGLOTTIS 09/17/2016 LILLY LEE DO Ot Z01.818 ENCOUNTER FOR OTHER PREPROCEDURAL EXAMIN 09/17/2016 SALOME STEVE Ot 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 OF SUPRAGLOTTIS 09/17/2016 LILIAN TREJO DO Ot C32. 1 MALIGNANT NEOPLASM OF SUPRAGLOTTIS 09/17/2016 LILIAN TREJO DO M Ot C34. 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 NEOPLASM OF UPPER LOBE, LEFT B 09/17/2016 LILIAN TREJO DO M Ot C32. 1 MALIGNANT NEOPLASM OF SUPRAGLOTTIS 09/17/2016 LILIAN TREJO DO M Ot C34. 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 NEOPLASM OF UPPER LOBE, LEFT B 09/17/2016 KAYCEE HASSANP Ot 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 OF SUPRAGLOTTIS 09/17/2016 KAYCEE HASSANP Ot C34.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 NEOPLASM OF UPPER LOBE, LEFT B 09/17/2016 KAYCEE HASSANP Ot M25.552 PAIN IN LEFT HIP 09/17/2016 ADELE CUTLER, ANAIS Nicholas Ot 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 OF SUPRAGLOTTIS 09/17/2016 ANAIS ANGULO MD Ot Z09 ENCNTR FOR F/U EXAM AFT TRTMT FOR COND O 09/17/2016 ANAIS ANGULO MD Ot Z96.8 9 PRESENCE OF OTHER SPECIFIED FUNCTIONAL I 09/17/2016 SERGEI CUTLER, STEF Arriola Ot C32 .1 MALIGNANT NEOPLASM OF SUPRAGLOTTIS 09/17/2016 ROBERTO CLANCYP Ot Z12.31 ENCNTR SCREEN MAMMOGRAM FOR MALIGNANT NE 09/17/2016 SALOME STEVE Ot 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 OF SUPRAGLOTTIS 09/17/2016 SALOME STEVE Ot C34.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 NEOPLASM OF UPPER LOBE, LEFT B 09/17/2016 SALOME STEVE Ot F17.210 NICOTINE DEPENDENCE, CIGARETTES, UNCOMPL 09/17/2016 SALOME STEVE Ot Z45.2 ENCOUNTER FOR ADJUSTMENT AND MANAGEMENT 09/17/2016 SALOME STEVE N Ot Z79.899 OTHER RETIREMENT (CURRENT) DRUG THERAPY 09/17/2016 SALOME STEVE Miguel A Ot Z92.21 PERSONAL HISTORY OF ANTINEOPLASTIC CHEMO 09/17/2016 SALOME STEVE Miguel A Ot Z92.3 PERSONAL HISTORY OF IRRADIATION 09/17/2016 KAYCEE HASSAN VOLLEYBALL PLAYER Ot 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 OF SUPRAGLOTTIS 09/17/2016 KAYCEE HASSAN VOLLEYBALL PLAYER Ot C34.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 NEOPLASM OF UPPER LOBE, LEFT B 09/17/2016 KAYCEE HASSAN VOLLEYBALL PLAYER Ot M25.552 PAIN IN LEFT HIP 09/17/2016 ANAIS ANGULO MD Ot 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 OF SUPRAGLOTTIS 09/17/2016 ANAIS ANGULO MD Ot Z09 ENCNTR FOR F/U EXAM AFT TRTMT FOR COND O 09/17/2016 ANAIS ANGULO MD Ot Z96.8 9 PRESENCE OF OTHER SPECIFIED FUNCTIONAL I 09/17/2016 SERGEI CUTLER, STEF Arriola Ot C32 .1 MALIGNANT NEOPLASM OF SUPRAGLOTTIS 09/17/2016 ASTON ROBERTO L VOLLEYBALL PLAYER Ot Z12.31 ENCNTR SCREEN MAMMOGRAM FOR MALIGNANT NE 09/17/2016 SALOME STEVE Miguel A Ot 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 OF SUPRAGLOTTIS 09/17/2016 SALOME STEVE Miguel A Ot C34.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 NEOPLASM OF UPPER LOBE, LEFT B 09/17/2016 SALOME STEVE Miguel A Ot F17.210 NICOTINE DEPENDENCE, CIGARETTES, UNCOMPL 09/17/2016 SALOME STEVE Miguel A Ot Z45.2 ENCOUNTER FOR ADJUSTMENT AND MANAGEMENT 09/17/2016 SALOME STEVE Ot Z79.899 OTHER RETIREMENT (CURRENT) DRUG THERAPY 09/17/2016 SALOME STEVE Miguel A Ot Z92.21 PERSONAL HISTORY OF ANTINEOPLASTIC CHEMO 09/17/2016 SALOME STEVE Miguel A Ot Z92.3 PERSONAL HISTORY OF IRRADIATION 09/18/2016 KAYCEE HASSAN VOLLEYBALL PLAYER Ot 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 OF SUPRAGLOTTIS 09/18/2016 KAYCEE HASSAN VOLLEYBALL PLAYER Ot C34.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 NEOPLASM OF UPPER LOBE, LEFT B 10/23/2016 KAYCEE HASSAN VOLLEYBALL PLAYER Ot 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 OF SUPRAGLOTTIS 10/23/2016 KAYCEE HASSAN VOLLEYBALL PLAYER Ot C34.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 NEOPLASM OF UPPER LOBE, LEFT B 11/03/2016 SALOME STEVE Ot 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 OF SUPRAGLOTTIS 11/03/2016 SALOME STEVE Ot C34.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 NEOPLASM OF UPPER LOBE, LEFT B 11/03/2016 SALOME STEVE Ot F17.210 NICOTINE DEPENDENCE, CIGARETTES, UNCOMPL 11/03/2016 SALOME STEVE N Ot Z45.2 ENCOUNTER FOR ADJUSTMENT AND MANAGEMENT 11/03/2016 SALOME STEVE Ot Z79.899 OTHER EXPEDITER CLERK (CURRENT) DRUG THERAPY 11/03/2016 SALOME STEVE N Ot Z92.21 PERSONAL HISTORY OF ANTINEOPLASTIC CHEMO 11/03/2016 SALOME STEVE N Ot Z92.3 PERSONAL HISTORY OF IRRADIATION 11/09/2016 SALOME STEVE N Ot 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 OF SUPRAGLOTTIS 11/09/2016 SALOME STEVE N Ot C34.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 NEOPLASM OF UPPER LOBE, LEFT B 11/09/2016 SALOME STEVE Ot F17.210 NICOTINE DEPENDENCE, CIGARETTES, UNCOMPL 11/09/2016 SALOME STEVE Ot Z45.2 ENCOUNTER FOR ADJUSTMENT AND MANAGEMENT 11/09/2016 SALOME STEVE Ot Z79.899 OTHER EXPEDITER CLERK (CURRENT) DRUG THERAPY 11/09/2016 SALOME STEVE N Ot Z92.21 PERSONAL HISTORY OF ANTINEOPLASTIC CHEMO 11/09/2016 SALOME STEVE N Ot Z92.3 PERSONAL HISTORY OF IRRADIATION 12/10/2016 GOPI JOHNS DOLINE S Ot 246.2 CYST OF THYROID 12/10/2016 GOPI JOHNS DOLINE S Ot 787.20 DYSPHAGIA, UNSPECIFIED 12/10/2016 STEF MAI MD Ot 241 .0 NONTOX UNINODULAR GOITER 12/10/2016 STEF MAI MD Ot 492 .8 EMPHYSEMA NEC 12/10/2016 STEF MAI MD Ot 784 .2 SWELLING IN HEAD NECK 12/10/2016 STEF MAI MD Ot 785 .6 ENLARGEMENT LYMPH NODES 12/10/2016 STEF MAI MD Ot 787.20 DYSPHAGIA, UNSPECIFIED 12/10/2016 SERGEI CUTLER, STEF Arriola Ot 240 .9 GOITER NOS 12/10/2016 SERGEI CUTLER, STEF Arriola Ot 780.79 OTH MALAISE FATIGUE 12/10/2016 STEF MAI MD Ot 784.42 DYSPHONIA 12/10/2016 JAMES CUTLER, ALBA Zamora Ot 401. 9 HYPERTENSION NOS 12/10/2016 JAMES CUTLER, ALBA Zamora Ot 414. 00 CORON ATHEROSCLER NOS TYPE VESSEL, NATIV 12/10/2016 JAMES CUTLER, ALBA Zamora Ot 794. 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 1 MALIG HILARIO SUPRAGLOTTIS 12/10/2016 LILLY LEE DO Ot V72. 63 PRE-PROCEDURAL LABORATORY EXAMINATION 12/10/2016 LILLY LEE DO Ot V72. 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 12/10/2016 KAYCEE HASSAN VOLLEYBALL PLAYER Ot 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 12/10/2016 KAYCEE HASSAN VOLLEYBALL PLAYER Ot 250.00 DIAB OLU WO COMPL, TYPE II OR UNSPEC TY 12/10/2016 KAYCEE HASSAN VOLLEYBALL PLAYER Ot 305.1 TOBACCO USE DISORDER 12/10/2016 KAYCEE HASSAN VOLLEYBALL PLAYER Ot 401.9 HYPERTENSION NOS 12/10/2016 KAYCEE HASSAN VOLLEYBALL PLAYER Ot 414.00 CORON ATHEROSCLER NOS TYPE VESSEL, NATIV 12/10/2016 KAYCEE HASSAN VOLLEYBALL PLAYER Ot 793.11 SOLITARY PULMONARY NODULE 12/10/2016 KAYCEE HASSAN VOLLEYBALL PLAYER Ot V45.81 AORTOCORONARY BYPASS 12/10/2016 KAYCEE HASSAN VOLLEYBALL PLAYER Ot V58.67 LONG-TERM (CURRENT) USE OF INSULIN 12/10/2016 KAYCEE HASSAN VOLLEYBALL PLAYER Ot V58.69 OTH MED,LT,CURRENT USE 12/10/2016 KAYCEE HASSAN VOLLEYBALL PLAYER Ot 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 12/10/2016 KAYCEE HASSAN VOLLEYBALL PLAYER Ot 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 12/10/2016 HASSAN, HILAH S VOLLEYBALL PLAYER Ot 250.00 DIAB OLU WO COMPL, TYPE II OR UNSPEC TY 12/10/2016 HASSAN, HILAH S VOLLEYBALL PLAYER Ot 305.1 TOBACCO USE DISORDER 12/10/2016 TONJA HASSANAH S VOLLEYBALL PLAYER Ot 401.9 HYPERTENSION NOS 12/10/2016 HASSANKAYCEE Marinelli S VOLLEYBALL PLAYER Ot 414.00 CORON ATHEROSCLER NOS TYPE VESSEL, NATIV 12/10/2016 KAYCEE HASSAN S VOLLEYBALL PLAYER Ot 793.11 SOLITARY PULMONARY NODULE 12/10/2016 KAYCEE HASSAN S VOLLEYBALL PLAYER Ot V45.81 AORTOCORONARY BYPASS 12/10/2016 KAYCEE HASSAN S VOLLEYBALL PLAYER Ot V58.67 LONG-TERM (CURRENT) USE OF INSULIN 12/10/2016 TONJA HASSANAH S VOLLEYBALL PLAYER Ot V58.69 OTH MED,LT,CURRENT USE 12/10/2016 HASSAN, HILAH S VOLLEYBALL PLAYER Ot 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 12/10/2016 HASSAN HILAH S VOLLEYBALL PLAYER Ot 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 12/10/2016 TONJA HASSANAH S VOLLEYBALL PLAYER Ot 250.00 DIAB OLU WO COMPL, TYPE II OR UNSPEC TY 12/10/2016 TONJA HASSANAH S VOLLEYBALL PLAYER Ot 305.1 TOBACCO USE DISORDER 12/10/2016 TONJA HASSANAH S VOLLEYBALL PLAYER Ot 401.9 HYPERTENSION NOS 12/10/2016 TONJA HASSANAH S VOLLEYBALL PLAYER Ot 414.00 CORON ATHEROSCLER NOS TYPE VESSEL, NATIV 12/10/2016 KAYCEE HASSAN S VOLLEYBALL PLAYER Ot 793.11 SOLITARY PULMONARY NODULE 12/10/2016 KAYCEE HASSNA S VOLLEYBALL PLAYER Ot V45.81 AORTOCORONARY BYPASS 12/10/2016 KAYCEE HASSAN S VOLLEYBALL PLAYER Ot V58.67 LONG-TERM (CURRENT) USE OF INSULIN 12/10/2016 HASSAN HILAH S VOLLEYBALL PLAYER Ot V58.69 OTH MED,LT,CURRENT USE 12/10/2016 HASSAN HILAH S VOLLEYBALL PLAYER Ot 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 12/10/2016 HASSAN HILAH S VOLLEYBALL PLAYER Ot 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 12/10/2016 HASSAN HILAH S VOLLEYBALL PLAYER Ot 250.00 DIAB OLU WO COMPL, TYPE II OR UNSPEC TY 12/10/2016 HASSAN, HILAH S VOLLEYBALL PLAYER Ot 305.1 TOBACCO USE DISORDER 12/10/2016 KAYCEE HASSAN S VOLLEYBALL PLAYER Ot 401.9 HYPERTENSION NOS 12/10/2016 TONJA HASSANAH S VOLLEYBALL PLAYER Ot 414.00 CORON ATHEROSCLER NOS TYPE VESSEL, NATIV 12/10/2016 KAYCEE HASSAN S VOLLEYBALL PLAYER Ot 793.11 SOLITARY PULMONARY NODULE 12/10/2016 KAYCEE HASSAN S VOLLEYBALL PLAYER Ot V45.81 AORTOCORONARY BYPASS 12/10/2016 KAYCEE HASSAN S VOLLEYBALL PLAYER Ot V58.67 LONG-TERM (CURRENT) USE OF INSULIN 12/10/2016 KAYCEE HASSAN S VOLLEYBALL PLAYER Ot V58.69 OTH MED,LT,CURRENT USE 12/10/2016 TONJA HASSANAH S VOLLEYBALL PLAYER Ot 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 12/10/2016 TONJA HASSANAH S VOLLEYBALL PLAYER Ot 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 12/10/2016 SONYA HILAH S VOLLEYBALL PLAYER Ot 250.00 DIAB OLU WO COMPL, TYPE II OR UNSPEC TY 12/10/2016 TONJA HASSANAH S VOLLEYBALL PLAYER Ot 305.1 TOBACCO USE DISORDER 12/10/2016 KAYCEE HASSAN S VOLLEYBALL PLAYER Ot 401.9 HYPERTENSION NOS 12/10/2016 KAYCEE HASSAN S VOLLEYBALL PLAYER Ot 414.00 CORON ATHEROSCLER NOS TYPE VESSEL, NATIV 12/10/2016 KAYCEE HASSAN S VOLLEYBALL PLAYER Ot 793.11 SOLITARY PULMONARY NODULE 12/10/2016 KAYCEE HASSAN S VOLLEYBALL PLAYER Ot V45.81 AORTOCORONARY BYPASS 12/10/2016 KAYCEE HASSAN S VOLLEYBALL PLAYER Ot V58.67 LONG-TERM (CURRENT) USE OF INSULIN 12/10/2016 KAYCEE HASSAN S VOLLEYBALL PLAYER Ot V58.69 OTH MED,LT,CURRENT USE 12/10/2016 TONJA HASSANAH S VOLLEYBALL PLAYER Ot 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 12/10/2016 SONYA HILAH S VOLLEYBALL PLAYER Ot 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 12/10/2016 HASSAN HILAH S VOLLEYBALL PLAYER Ot 250.00 DIAB OLU WO COMPL, TYPE II OR UNSPEC TY 12/10/2016 SONYA HILAH S VOLLEYBALL PLAYER Ot 305.1 TOBACCO USE DISORDER 12/10/2016 TONJA HASSANAH S VOLLEYBALL PLAYER Ot 401.9 HYPERTENSION NOS 12/10/2016 KAYCEE HASSAN S VOLLEYBALL PLAYER Ot 414.00 CORON ATHEROSCLER NOS TYPE VESSEL, NATIV 12/10/2016 KAYCEE HASSAN S VOLLEYBALL PLAYER Ot 4 96 CHR AIRWAY OBSTRUCT NEC 12/10/2016 KAYCEE HASSAN S VOLLEYBALL PLAYER Ot 793.11 SOLITARY PULMONARY NODULE 12/10/2016 KAYCEE HASSAN S VOLLEYBALL PLAYER Ot V45.81 AORTOCORONARY BYPASS 12/10/2016 KAYCEE HASSAN S VOLLEYBALL PLAYER Ot V58.67 LONG-TERM (CURRENT) USE OF INSULIN 12/10/2016 KAYCEE HASSAN S VOLLEYBALL PLAYER Ot V58.69 OTH MED,LT,CURRENT USE 12/10/2016 SALOME STEVE Ot 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 12/10/2016 SALOME STEVE Ot 496 CHR AIRWAY OBSTRUCT NEC 12/10/2016 SALOME STEVE Ot 787.20 DYSPHAGIA, UNSPECIFIED 12/10/2016 SALOME STEVE Ot 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 12/10/2016 ZAK BUCIO VOLLEYBALL PLAYER Ot 250.02 DIAB OLU WO COMPL, TYPE II OR UNSPEC TY 12/10/2016 KAYCEE HASSAN S VOLLEYBALL PLAYER Ot 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 12/10/2016 KAYCEE HASSAN S VOLLEYBALL PLAYER Ot 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 12/10/2016 KAYECE HASSAN S VOLLEYBALL PLAYER Ot 250.00 DIAB OLU WO COMPL, TYPE II OR UNSPEC TY 12/10/2016 KAYCEE HASSAN S VOLLEYBALL PLAYER Ot 305.1 TOBACCO USE DISORDER 12/10/2016 KAYCEE HASSAN S VOLLEYBALL PLAYER Ot 401.9 HYPERTENSION NOS 12/10/2016 KAYCEE HASSAN S VOLLEYBALL PLAYER Ot 414.00 CORON ATHEROSCLER NOS TYPE VESSEL, NATIV 12/10/2016 KAYCEE HASSAN VOLLEYBALL PLAYER Ot 4 96 CHR AIRWAY OBSTRUCT NEC 12/10/2016 KAYCEE HASSAN S VOLLEYBALL PLAYER Ot 793.11 SOLITARY PULMONARY NODULE 12/10/2016 KAYCEE HASSAN S VOLLEYBALL PLAYER Ot V45.81 AORTOCORONARY BYPASS 12/10/2016 KAYCEE HASSAN S VOLLEYBALL PLAYER Ot V58.67 LONG-TERM (CURRENT) USE OF INSULIN 12/10/2016 KAYCEE HASSAN S VOLLEYBALL PLAYER Ot V58.69 OTH MED,LT,CURRENT USE 12/10/2016 KAYCEE HASSAN V[employer]LEYBALL PLAYER Ot 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 12/10/2016 KAYCEE HASSAN V[employer]LEYBALL PLAYER Ot 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 12/10/2016 KAYCEE HASSAN S VOLLEYBALL PLAYER Ot 250.00 DIAB OLU WO COMPL, TYPE II OR UNSPEC TY 12/10/2016 KAYCEE HASSAN [employer]LEYB[employer] PLAYER Ot 305.1 TOBACCO USE DISORDER 12/10/2016 KAYCEE HASSAN S V[employer]LEYBALL PLAYER Ot 401.9 HYPERTENSION NOS 12/10/2016 KAYCEE HASSAN S VOLLEYBALL PLAYER Ot 414.00 CORON ATHEROSCLER NOS TYPE VESSEL, NATIV 12/10/2016 KAYCEE HASSAN VOLLEYBALL PLAYER Ot 4 96 CHR AIRWAY OBSTRUCT NEC 12/10/2016 KAYCEE HASSAN [employer]LEYBALL PLAYER Ot 793.11 SOLITARY PULMONARY NODULE 12/10/2016 KAYCEE HASSAN V[employer]LEYBALL PLAYER Ot V45.81 AORTOCORONARY BYPASS 12/10/2016 KAYCEE HASSAN V[employer]LEYBALL PLAYER Ot V58.67 LONG-TERM (CURRENT) USE OF INSULIN 12/10/2016 KAYCEE HASSAN V[employer]LEYBALL PLAYER Ot V58.69 OTH MED,LT,CURRENT USE 12/10/2016 KAYCEE HASSAN V[employer]LEYBALL PLAYER Ot 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 12/10/2016 SERGEI CUTLER, STEF Arriola Ot 793.19 OTHER NONSPECIFIC ABNORMAL FINDING OF [place] 12/10/2016 SERGEI CUTLER, STEF Arriola Ot V72.63 PRE-PROCEDURAL LABORATORY EXAMINATION 12/10/2016 SERGEI CUTLER, STEF Arriola Ot V72.81 [id number] CARDIOVASCULAR 12/10/2016 STEF MAI MD Ot V74 .8 SCREEN-BACTERIAL DIS NEC 12/10/2016 KYLIE TAYLOR MD Ot 272. 4 HYPERLIPIDEMIA NEC/NOS 12/10/2016 KYLIE TAYLOR MD Ot 401. 9 HYPERTENSION NOS 12/10/2016 KYLIE TAYLOR MD Ot 414. 00 CORON ATHEROSCLER NOS TYPE VESSEL, NATIV 12/10/2016 KAYCEE HASSAN VOLLEYBALL PLAYER Ot 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 12/10/2016 KAYCEE HASSAN VOLLEYBALL PLAYER Ot 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 12/10/2016 HASSAN, HILAH S VOLLEYBALL PLAYER Ot 250.00 DIAB OLU WO COMPL, TYPE II OR UNSPEC TY 12/10/2016 KAYCEE HASSAN S VOLLEYBALL PLAYER Ot 305.1 TOBACCO USE DISORDER 12/10/2016 KAYCEE HASSAN S VOLLEYBALL PLAYER Ot 401.9 HYPERTENSION NOS 12/10/2016 HASSAN, HILAH S VOLLEYBALL PLAYER Ot 414.00 CORON ATHEROSCLER NOS TYPE VESSEL, NATIV 12/10/2016 KAYCEE HASSAN S VOLLEYBALL PLAYER Ot 4 96 CHR AIRWAY OBSTRUCT NEC 12/10/2016 KAYCEE HASSAN S VOLLEYBALL PLAYER Ot 793.11 SOLITARY PULMONARY NODULE 12/10/2016 KAYCEE HASSAN S VOLLEYBALL PLAYER Ot V45.81 AORTOCORONARY BYPASS 12/10/2016 KAYCEE HASSAN S VOLLEYBALL PLAYER Ot V58.67 LONG-TERM (CURRENT) USE OF INSULIN 12/10/2016 KAYCEE HASSAN VOLLEYBALL PLAYER Ot V58.69 OTH MED,LT,CURRENT USE 12/10/2016 KAYCEE HASSAN S VOLLEYBALL PLAYER Ot 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 12/10/2016 KAYCEE HASSAN S VOLLEYBALL PLAYER Ot 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 12/10/2016 KAYCEE HASSAN S VOLLEYBALL PLAYER Ot 250.00 DIAB OLU WO COMPL, TYPE II OR UNSPEC TY 12/10/2016 KAYCEE HASSAN S VOLLEYBALL PLAYER Ot 305.1 TOBACCO USE DISORDER 12/10/2016 KAYCEE HASSAN S VOLLEYBALL PLAYER Ot 401.9 HYPERTENSION NOS 12/10/2016 KAYCEE HASSAN S VOLLEYBALL PLAYER Ot 414.00 CORON ATHEROSCLER NOS TYPE VESSEL, NATIV 12/10/2016 KAYCEE HASSAN S VOLLEYBALL PLAYER Ot 4 96 CHR AIRWAY OBSTRUCT NEC 12/10/2016 KAYCEE HASSAN S VOLLEYBALL PLAYER Ot 793.11 SOLITARY PULMONARY NODULE 12/10/2016 KAYCEE HASSAN S VOLLEYBALL PLAYER Ot V45.81 AORTOCORONARY BYPASS 12/10/2016 KAYCEE HASSAN VOLLEYBALL PLAYER Ot V58.67 LONG-TERM (CURRENT) USE OF INSULIN 12/10/2016 KAYCEE HASSAN S VOLLEYBALL PLAYER Ot V58.69 OTH MED,LT,CURRENT USE 12/10/2016 KAYCEE HASSAN S VOLLEYBALL PLAYER Ot V58.81 FIT/ADJ VASCULAR CATHETER 12/10/2016 KAYCEE HASSAN S VOLLEYBALL PLAYER Ot 141.9 MALIG HILARIO TONGUE NOS 12/10/2016 KAYCEE HASSAN V[employer]LEYBALL PLAYER Ot 793.11 SOLITARY PULMONARY NODULE 12/10/2016 Ot 786.6 CHES T SWELLING/MASS/LUMP 12/10/2016 Ot V72.63 PRE -PROCEDURAL LABORATORY EXAMINATION 12/10/2016 Ot V72.81 [id number] CARDIOVASCULAR 12/10/2016 Ot V72.83 EXA M PRE- OPERATIVE NEC 12/10/2016 DARIAN JESSICA MD Ot 162. 9 MAL HILARIO BRONCH/LUNG NOS 12/10/2016 DARIAN JESSICA MD Ot 414. 01 CORONARY ATHEROSCLEROSIS OF [place] CORON 12/10/2016 DARIAN JESSICA MD Ot 782. 3 EDEMA 12/10/2016 SALOME STEVE Ot 793.11 SOLITARY PULMONARY NODULE 12/10/2016 CLAUDIA CUTLER, KYLIE Dawson Ot 250. 00 DIAB OLU WO COMPL, TYPE II OR UNSPEC TY 12/10/2016 KYLIE TAYLOR MD Ot 401. 9 HYPERTENSION NOS 12/10/2016 KYLIE TAYLOR MD Ot 414. 00 CORON ATHEROSCLER NOS TYPE VESSEL, NATIV 12/10/2016 KYLIE TAYLOR MD Ot 428. 0 CONGESTIVE HEART FAILURE NOS 12/10/2016 KYLIE TAYLOR MD Ot V58. 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 1 MALIGNANT NEOPLASM OF SUPRAGLOTTIS 12/10/2016 LILIAN TREJO DO Ot C34. 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 NEOPLASM OF UPPER LOBE, LEFT B 12/10/2016 LILIAN TREJO DO M Ot C32. 1 MALIGNANT NEOPLASM OF SUPRAGLOTTIS 12/10/2016 LILIAN TREJO DO M Ot C34. 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 NEOPLASM OF UPPER LOBE, LEFT B 12/10/2016 KAYCEE HASSAN VOLLEYBALL PLAYER Ot 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 OF SUPRAGLOTTIS 12/10/2016 KAYCEE HASSAN VOLLEYBALL PLAYER Ot C34.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 NEOPLASM OF UPPER LOBE, LEFT B 12/10/2016 KAYCEE HASSAN VOLLEYBALL PLAYER Ot M25.552 PAIN IN LEFT HIP 12/10/2016 ANAIS ANGULO MD Ot 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 OF SUPRAGLOTTIS 12/10/2016 ANAIS ANGULO MD Ot Z09 ENCNTR FOR F/U EXAM AFT TRTMT FOR COND O 12/10/2016 ANAIS ANGULO MD Ot Z96.8 9 PRESENCE OF OTHER SPECIFIED FUNCTIONAL I 12/10/2016 SERGEI CUTLER, STEF Arriola Ot C32 .1 MALIGNANT NEOPLASM OF SUPRAGLOTTIS 12/10/2016 ROBERTO CLANCY VOLLEYBALL PLAYER Ot Z12.31 ENCNTR SCREEN MAMMOGRAM FOR MALIGNANT NE 12/10/2016 KAYCEE HASSAN VOLLEYBALL PLAYER Ot 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 OF SUPRAGLOTTIS 12/10/2016 KAYCEE HASSAN VOLLEYBALL PLAYER Ot C34.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 NEOPLASM OF UPPER LOBE, LEFT B 01/10/2017 SALOME STEVE Ot 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 OF SUPRAGLOTTIS 01/10/2017 SALOME STEVE Ot C34.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 NEOPLASM OF UPPER LOBE, LEFT B 01/10/2017 SALOME STEVE Ot F17.210 NICOTINE DEPENDENCE, CIGARETTES, UNCOMPL 01/10/2017 SALOME STEVE Ot Z79.899 OTHER EXPEDITER CLERK (CURRENT) DRUG THERAPY 01/10/2017 SALOME STEVE Ot Z92.21 PERSONAL HISTORY OF ANTINEOPLASTIC CHEMO 01/10/2017 SALOME STEVE Ot Z92.3 PERSONAL HISTORY OF IRRADIATION 02/10/2017 SALOME STEVE Ot 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 OF SUPRAGLOTTIS 02/10/2017 SALOME STEVE Ot C34.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 NEOPLASM OF UPPER LOBE, LEFT B 02/10/2017 SALOME STEVE Ot F17.210 NICOTINE DEPENDENCE, CIGARETTES, UNCOMPL 02/10/2017 SALOME STEVE N Ot Z79.899 OTHER EXPEDITER CLERK (CURRENT) DRUG THERAPY 02/10/2017 SALOME STEVE N Ot Z92.21 PERSONAL HISTORY OF ANTINEOPLASTIC CHEMO 02/10/2017 SALOME STEVE N Ot Z92.3 PERSONAL HISTORY OF IRRADIATION 03/15/2017 SALOME STEVE N Ot 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 OF SUPRAGLOTTIS 03/15/2017 SALOME STEVE N Ot C34.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 NEOPLASM OF UPPER LOBE, LEFT B 03/15/2017 SALOME STEVE N Ot F17.210 NICOTINE DEPENDENCE, CIGARETTES, UNCOMPL 03/15/2017 SALOME STEVE Miguel A Ot Z45.2 ENCOUNTER FOR ADJUSTMENT AND MANAGEMENT 03/15/2017 SALOME STEVE N Ot Z79.899 OTHER RETIREMENT (CURRENT) DRUG THERAPY 03/15/2017 SALOME STEVE N Ot Z92.21 PERSONAL HISTORY OF ANTINEOPLASTIC CHEMO 03/15/2017 SALOME STEVE N Ot Z92.3 PERSONAL HISTORY OF IRRADIATION 04/08/2017 KAYCEE HASSAN VOLLEYBALL PLAYER Ot 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 OF SUPRAGLOTTIS 04/08/2017 KAYCEE HASSAN VOLLEYBALL PLAYER Ot C34.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 NEOPLASM OF UPPER LOBE, LEFT B 04/08/2017 KAYCEE HASSAN VOLLEYBALL PLAYER Ot 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 OF SUPRAGLOTTIS 04/08/2017 KAYCEE HASSAN VOLLEYBALL PLAYER Ot C34.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 NEOPLASM OF UPPER LOBE, LEFT B 04/08/2017 SALOME STEVE N Ot 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 OF SUPRAGLOTTIS 04/08/2017 SALOME STEVE N Ot C34.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 NEOPLASM OF UPPER LOBE, LEFT B 04/08/2017 SALOME STEVE N Ot E11.43 TYPE 2 DIABETES W DIABETIC AUTONOMIC (PO 04/08/2017 POWER, SALOME N Ot E78.5 HYPERLIPIDEMIA, UNSPECIFIED 04/08/2017 POWER SALOME N Ot E83.42 HYPOMAGNESEMIA 04/08/2017 SALOME STEVE N Ot F17.210 NICOTINE DEPENDENCE, CIGARETTES, UNCOMPL 04/08/2017 POWER, SALOME N Ot I10 ESSENTIAL (PRIMARY) HYPERTENSION 04/08/2017 SALOME STEVE Ot I25.10 ATHSCL HEART DISEASE OF [place] CORONARY 04/08/2017 SALOME STEVE Ot J43.9 EMPHYSEMA, UNSPECIFIED 04/08/2017 SALOME STEVE Ot Z79.899 OTHER EXPEDITER CLERK (CURRENT) DRUG THERAPY 04/08/2017 SALOME STEVE Ot Z92.21 PERSONAL HISTORY OF ANTINEOPLASTIC CHEMO 04/08/2017 SALOME STEVE Ot Z92.3 PERSONAL HISTORY OF IRRADIATION 04/08/2017 NALINI JOHNS DO S Ot 246.2 CYST OF THYROID 04/08/2017 NALINI JOHNS DO S Ot 787.20 DYSPHAGIA, UNSPECIFIED 04/08/2017 STEF MAI MD Ot 241 .0 NONTOX UNINODULAR GOITER 04/08/2017 STEF MAI MD Ot 492 .8 EMPHYSEMA NEC 04/08/2017 STEF MAI MD Ot 784 .2 SWELLING IN HEAD NECK 04/08/2017 STEF MAI MD Ot 785 .6 ENLARGEMENT LYMPH NODES 04/08/2017 STEF MAI MD Ot 787.20 DYSPHAGIA, UNSPECIFIED 04/08/2017 STEF MAI MD Ot 240 .9 GOITER NOS 04/08/2017 STEF MAI MD Ot 780.79 OTH MALAISE FATIGUE 04/08/2017 STEF MAI MD Ot 784.42 DYSPHONIA 04/08/2017 JAMES CUTLER, ALBA Zamora Ot 401. 9 HYPERTENSION NOS 04/08/2017 JAMES CUTLER, ALBA Zamora Ot 414. 00 CORON ATHEROSCLER NOS TYPE VESSEL, NATIV 04/08/2017 JAMES CUTLER, ALBA Zamora Ot 794. 30 ABN CARDIOVASC STUDY NOS 04/08/2017 SHARLENE CUTLER, MAGAN E Ot 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 04/08/2017 LILLY LEE DO Ot 161. 1 MALIG HILARIO SUPRAGLOTTIS 04/08/2017 LILLY LEE DO Ot V72. 63 PRE-PROCEDURAL LABORATORY EXAMINATION 04/08/2017 LILLY LEE DO Ot V72. 84 EXAM PRE-OPERATIVE NOS 04/08/2017 KAYCEE HASSAN VOLLEYBALL PLAYER Ot 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 04/08/2017 KAYCEE HASSAN VOLLEYBALL PLAYER Ot 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 04/08/2017 KAYCEE HASSAN S VOLLEYBALL PLAYER Ot 250.00 DIAB OLU WO COMPL, TYPE II OR UNSPEC TY 04/08/2017 KAYCEE HASSAN S VOLLEYBALL PLAYER Ot 305.1 TOBACCO USE DISORDER 04/08/2017 KAYCEE HASSAN S VOLLEYBALL PLAYER Ot 401.9 HYPERTENSION NOS 04/08/2017 KAYCEE HASSAN S VOLLEYBALL PLAYER Ot 414.00 CORON ATHEROSCLER NOS TYPE VESSEL, NATIV 04/08/2017 KAYCEE HASSAN S VOLLEYBALL PLAYER Ot 793.11 SOLITARY PULMONARY NODULE 04/08/2017 KAYCEE HASSAN S VOLLEYBALL PLAYER Ot V45.81 AORTOCORONARY BYPASS 04/08/2017 KAYCEE HASSAN S VOLLEYBALL PLAYER Ot V58.67 LONG-TERM (CURRENT) USE OF INSULIN 04/08/2017 KAYCEE HASSAN S VOLLEYBALL PLAYER Ot V58.69 OTH MED,LT,CURRENT USE 04/08/2017 KAYCEE HASSAN S VOLLEYBALL PLAYER Ot 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 04/08/2017 TONJA HASSANAH S VOLLEYBALL PLAYER Ot 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 04/08/2017 TONJA HASSANAH S VOLLEYBALL PLAYER Ot 250.00 DIAB OLU WO COMPL, TYPE II OR UNSPEC TY 04/08/2017 TONJA HASSANAH S VOLLEYBALL PLAYER Ot 305.1 TOBACCO USE DISORDER 04/08/2017 KAYCEE HASSAN S VOLLEYBALL PLAYER Ot 401.9 HYPERTENSION NOS 04/08/2017 TONJA HASSANAH S VOLLEYBALL PLAYER Ot 414.00 CORON ATHEROSCLER NOS TYPE VESSEL, NATIV 04/08/2017 KAYCEE HASSAN S VOLLEYBALL PLAYER Ot 793.11 SOLITARY PULMONARY NODULE 04/08/2017 KAYCEE HASSAN S VOLLEYBALL PLAYER Ot V45.81 AORTOCORONARY BYPASS 04/08/2017 KAYCEE HASSAN S VOLLEYBALL PLAYER Ot V58.67 LONG-TERM (CURRENT) USE OF INSULIN 04/08/2017 KAYCEE HASSAN S VOLLEYBALL PLAYER Ot V58.69 OTH MED,LT,CURRENT USE 04/08/2017 TONJA HASSANAH S VOLLEYBALL PLAYER Ot 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 04/08/2017 TONJA HASSANAH S VOLLEYBALL PLAYER Ot 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 04/08/2017 HASSAN, HILAH S VOLLEYBALL PLAYER Ot 250.00 DIAB OLU WO COMPL, TYPE II OR UNSPEC TY 04/08/2017 KAYCEE HASSAN S VOLLEYBALL PLAYER Ot 305.1 TOBACCO USE DISORDER 04/08/2017 KAYCEE HASSAN S VOLLEYBALL PLAYER Ot 401.9 HYPERTENSION NOS 04/08/2017 TONJA HASSANAH S VOLLEYBALL PLAYER Ot 414.00 CORON ATHEROSCLER NOS TYPE VESSEL, NATIV 04/08/2017 KAYCEE HASSAN S VOLLEYBALL PLAYER Ot 793.11 SOLITARY PULMONARY NODULE 04/08/2017 KAYCEE HASSAN S VOLLEYBALL PLAYER Ot V45.81 AORTOCORONARY BYPASS 04/08/2017 KAYCEE HASSAN S VOLLEYBALL PLAYER Ot V58.67 LONG-TERM (CURRENT) USE OF INSULIN 04/08/2017 KAYCEE HASSAN S VOLLEYBALL PLAYER Ot V58.69 OTH MED,LT,CURRENT USE 04/08/2017 KAYCEE HASSAN S VOLLEYBALL PLAYER Ot 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 04/08/2017 KAYCEE HASSAN S VOLLEYBALL PLAYER Ot 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 04/08/2017 KAYCEE HASSAN S VOLLEYBALL PLAYER Ot 250.00 DIAB OLU WO COMPL, TYPE II OR UNSPEC TY 04/08/2017 KAYCEE HASSAN S VOLLEYBALL PLAYER Ot 305.1 TOBACCO USE DISORDER 04/08/2017 KAYCEE HASSAN S VOLLEYBALL PLAYER Ot 401.9 HYPERTENSION NOS 04/08/2017 KAYCEE HASSAN S VOLLEYBALL PLAYER Ot 414.00 CORON ATHEROSCLER NOS TYPE VESSEL, NATIV 04/08/2017 KAYCEE HASSAN S VOLLEYBALL PLAYER Ot 793.11 SOLITARY PULMONARY NODULE 04/08/2017 KAYCEE HASSAN S VOLLEYBALL PLAYER Ot V45.81 AORTOCORONARY BYPASS 04/08/2017 KAYCEE HASSAN S VOLLEYBALL PLAYER Ot V58.67 LONG-TERM (CURRENT) USE OF INSULIN 04/08/2017 KAYCEE HASSAN S VOLLEYBALL PLAYER Ot V58.69 OTH MED,LT,CURRENT USE 04/08/2017 TONJA HASSANAH S VOLLEYBALL PLAYER Ot 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 04/08/2017 TONJA HASSANAH S VOLLEYBALL PLAYER Ot 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 04/08/2017 TONJA HASSANAH S VOLLEYBALL PLAYER Ot 250.00 DIAB OLU WO COMPL, TYPE II OR UNSPEC TY 04/08/2017 KAYCEE HASSAN S VOLLEYBALL PLAYER Ot 305.1 TOBACCO USE DISORDER 04/08/2017 HASSAN, HILAH S VOLLEYBALL PLAYER Ot 401.9 HYPERTENSION NOS 04/08/2017 HASSAN, KAYCEE S VOLLEYBALL PLAYER Ot 414.00 CORON ATHEROSCLER NOS TYPE VESSEL, NATIV 04/08/2017 KAYCEE HASSAN S VOLLEYBALL PLAYER Ot 793.11 SOLITARY PULMONARY NODULE 04/08/2017 SONYA HILBOB S VOLLEYBALL PLAYER Ot V45.81 AORTOCORONARY BYPASS 04/08/2017 SONYA HILAH S VOLLEYBALL PLAYER Ot V58.67 LONG-TERM (CURRENT) USE OF INSULIN 04/08/2017 KAYCEE HASSAN S VOLLEYBALL PLAYER Ot V58.69 OTH MED,LT,CURRENT USE 04/08/2017 KAYCEE HASSAN S VOLLEYBALL PLAYER Ot 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 04/08/2017 SONYA HILAH S VOLLEYBALL PLAYER Ot 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 04/08/2017 HASSAN, HILAH S VOLLEYBALL PLAYER Ot 250.00 DIAB OLU WO COMPL, TYPE II OR UNSPEC TY 04/08/2017 KAYCEE HASSAN S VOLLEYBALL PLAYER Ot 305.1 TOBACCO USE DISORDER 04/08/2017 KAYCEE HASSAN S VOLLEYBALL PLAYER Ot 401.9 HYPERTENSION NOS 04/08/2017 KAYCEE HASSAN S VOLLEYBALL PLAYER Ot 414.00 CORON ATHEROSCLER NOS TYPE VESSEL, NATIV 04/08/2017 KAYCEE HASSAN S VOLLEYBALL PLAYER Ot 4 96 CHR AIRWAY OBSTRUCT NEC 04/08/2017 KAYCEE HASSAN S VOLLEYBALL PLAYER Ot 793.11 SOLITARY PULMONARY NODULE 04/08/2017 KAYCEE HASSAN S VOLLEYBALL PLAYER Ot V45.81 AORTOCORONARY BYPASS 04/08/2017 KAYCEE HASSAN S VOLLEYBALL PLAYER Ot V58.67 LONG-TERM (CURRENT) USE OF INSULIN 04/08/2017 KAYCEE HASSAN S VOLLEYBALL PLAYER Ot V58.69 OTH MED,LT,CURRENT USE 04/08/2017 SALOME STEVE N Ot 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 04/08/2017 SALOME STEVE Ot 496 CHR AIRWAY OBSTRUCT NEC 04/08/2017 SALOME STEVE N Ot 787.20 DYSPHAGIA, UNSPECIFIED 04/08/2017 SALOME STEVE N Ot 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 04/08/2017 ZAK BUCIO VOLLEYBALL PLAYER Ot 250.02 DIAB OLU WO COMPL, TYPE II OR UNSPEC TY 04/08/2017 KAYCEE HASSAN S VOLLEYBALL PLAYER Ot 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 04/08/2017 KAYCEE HASSAN S VOLLEYBALL PLAYER Ot 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 04/08/2017 TONJA HASSANAH S VOLLEYBALL PLAYER Ot 250.00 DIAB OLU WO COMPL, TYPE II OR UNSPEC TY 04/08/2017 HASSAN, HILAH S VOLLEYBALL PLAYER Ot 305.1 TOBACCO USE DISORDER 04/08/2017 KAYCEE HASSAN S VOLLEYBALL PLAYER Ot 401.9 HYPERTENSION NOS 04/08/2017 HASSAN, HILAH S VOLLEYBALL PLAYER Ot 414.00 CORON ATHEROSCLER NOS TYPE VESSEL, NATIV 04/08/2017 HASSAN, HILAH S VOLLEYBALL PLAYER Ot 4 96 CHR AIRWAY OBSTRUCT NEC 04/08/2017 SONYA HILAH S VOLLEYBALL PLAYER Ot 793.11 SOLITARY PULMONARY NODULE 04/08/2017 KAYCEE HASSAN S VOLLEYBALL PLAYER Ot V45.81 AORTOCORONARY BYPASS 04/08/2017 KAYCEE HASSAN S VOLLEYBALL PLAYER Ot V58.67 LONG-TERM (CURRENT) USE OF INSULIN 04/08/2017 TONJA HASSANAH S VOLLEYBALL PLAYER Ot V58.69 OT MED,LT,CURRENT USE 04/08/2017 TONJA HASSANAH S VOLLEYBALL PLAYER Ot 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 04/08/2017 KAYCEE HASSAN S VOLLEYBALL PLAYER Ot 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 04/08/2017 TONJA HASSANAH S VOLLEYBALL PLAYER Ot 250.00 DIAB OLU WO COMPL, TYPE II OR UNSPEC TY 04/08/2017 KAYCEE HASSAN S VOLLEYBALL PLAYER Ot 305.1 TOBACCO USE DISORDER 04/08/2017 KAYCEE HASSAN S VOLLEYBALL PLAYER Ot 401.9 HYPERTENSION NOS 04/08/2017 TONJA HASSANAH S VOLLEYBALL PLAYER Ot 414.00 CORON ATHEROSCLER NOS TYPE VESSEL, NATIV 04/08/2017 TONJA HASSANAH S VOLLEYBALL PLAYER Ot 4 96 CHR AIRWAY OBSTRUCT NEC 04/08/2017 TONJA HASSANAH S VOLLEYBALL PLAYER Ot 793.11 SOLITARY PULMONARY NODULE 04/08/2017 SONYA HILAH S VOLLEYBALL PLAYER Ot V45.81 AORTOCORONARY BYPASS 04/08/2017 TONJA HASSANAH S VOLLEYBALL PLAYER Ot V58.67 LONG-TERM (CURRENT) USE OF INSULIN 04/08/2017 TONJA HASSANAH S VOLLEYBALL PLAYER Ot V58.69 OTH MED,LT,CURRENT USE 04/08/2017 KAYCEE HASSAN VOLLEYBALL PLAYER Ot 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 04/08/2017 STEF MAI MD Ot 793.19 OTHER NONSPECIFIC ABNORMAL FINDING OF [place] 04/08/2017 STEF MAI MD Ot V72.63 PRE-PROCEDURAL LABORATORY EXAMINATION 04/08/2017 STEF MAI MD Ot V72.81 ADVE-EIG-HCBHIRRUI CARDIOVASCULAR 04/08/2017 STEF MAI MD Ot V74 .8 SCREEN-BACTERIAL DIS NEC 04/08/2017 KYLIE TAYLOR MD Ot 272. 4 HYPERLIPIDEMIA NEC/NOS 04/08/2017 KYLIE TAYLOR MD Ot 401. 9 HYPERTENSION NOS 04/08/2017 KYLIE TAYLOR MD Ot 414. 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 04/08/2017 KAYCEE HASSAN VOLLEYBALL PLAYER Ot 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 04/08/2017 KAYCEE HASSAN VOLLEYBALL PLAYER Ot 250.00 DIAB OLU WO COMPL, TYPE II OR UNSPEC TY 04/08/2017 KAYCEE HASSAN VOLLEYBALL PLAYER Ot 305.1 TOBACCO USE DISORDER 04/08/2017 KAYCEE HASSAN VOLLEYBALL PLAYER Ot 401.9 HYPERTENSION NOS 04/08/2017 KAYCEE HASSAN VOLLEYBALL PLAYER Ot 414.00 CORON ATHEROSCLER NOS TYPE VESSEL, NATIV 04/08/2017 KAYCEE HASSAN VOLLEYBALL PLAYER Ot 4 96 CHR AIRWAY OBSTRUCT NEC 04/08/2017 KAYCEE HASSAN VOLLEYBALL PLAYER Ot 793.11 SOLITARY PULMONARY NODULE 04/08/2017 KAYCEE HASSAN VOLLEYBALL PLAYER Ot V45.81 AORTOCORONARY BYPASS 04/08/2017 KAYCEE HASSAN VOLLEYBALL PLAYER Ot V58.67 LONG-TERM (CURRENT) USE OF INSULIN 04/08/2017 KAYCEE HASSAN VOLLEYBALL PLAYER Ot V58.69 OTH MED,LT,CURRENT USE 04/08/2017 KAYCEE HASSAN VOLLEYBALL PLAYER Ot 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 04/08/2017 KAYCEE HASSAN VOLLEYBALL PLAYER Ot 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 04/08/2017 HASSAN, HILAH S VOLLEYBALL PLAYER Ot 250.00 DIAB OLU WO COMPL, TYPE II OR UNSPEC TY 04/08/2017 KAYCEE HASSAN VOLLEYBALL PLAYER Ot 305.1 TOBACCO USE DISORDER 04/08/2017 HASSANKAYCEE Marinelli VOLLEYBALL PLAYER Ot 401.9 HYPERTENSION NOS 04/08/2017 KAYCEE HASSAN VOLLEYBALL PLAYER Ot 414.00 CORON ATHEROSCLER NOS TYPE VESSEL, NATIV 04/08/2017 KAYCEE HASSAN VOLLEYBALL PLAYER Ot 4 96 CHR AIRWAY OBSTRUCT NEC 04/08/2017 HASSANKAYCEE Marinelli VOLLEYBALL PLAYER Ot 793.11 SOLITARY PULMONARY NODULE 04/08/2017 KAYCEE HASSAN VOLLEYBALL PLAYER Ot V45.81 AORTOCORONARY BYPASS 04/08/2017 KAYCEE HASSAN VOLLEYBALL PLAYER Ot V58.67 LONG-TERM (CURRENT) USE OF INSULIN 04/08/2017 KAYCEE HASSAN VOLLEYBALL PLAYER Ot V58.69 OTH MED,LT,CURRENT USE 04/08/2017 KAYCEE HASSAN VOLLEYBALL PLAYER Ot V58.81 FIT/ADJ VASCULAR CATHETER 04/08/2017 SONYA KAYCEE Marinelli VOLLEYBALL PLAYER Ot 141.9 MALIG HILARIO TONGUE NOS 04/08/2017 HASSAN KAYCEE Marinelli VOLLEYBALL PLAYER Ot 793.11 SOLITARY PULMONARY NODULE 04/08/2017 Ot 786.6 CHES T SWELLING/MASS/LUMP 04/08/2017 Ot V72.63 PRE -PROCEDURAL LABORATORY EXAMINATION 04/08/2017 Ot V72.81 [id number] CARDIOVASCULAR 04/08/2017 Ot V72.83 EXA M PRE- OPERATIVE NEC 04/08/2017 DARIAN JESSICA MD Ot 162. 9 MAL HILARIO BRONCH/LUNG NOS 04/08/2017 DARIAN JESSICA MD Ot 414. 01 CORONARY ATHEROSCLEROSIS OF [place] CORON 04/08/2017 DARIAN JESSICA MD Ot 782. 3 EDEMA 04/08/2017 SALOME STEVE Ot 793.11 SOLITARY PULMONARY NODULE 04/08/2017 KYLIE TAYLOR MD Ot 250. 00 DIAB OLU WO COMPL, TYPE II OR UNSPEC TY 04/08/2017 KYLIE TAYLOR MD Ot 401. 9 HYPERTENSION NOS 04/08/2017 KYLIE TAYLOR MD Ot 414. 00 CORON ATHEROSCLER NOS TYPE VESSEL, NATIV 04/08/2017 KYLIE TAYLOR MD Ot 428. 0 CONGESTIVE HEART FAILURE NOS 04/08/2017 KYLIE TAYLOR MD J Ot V58. 67 LONG-TERM (CURRENT) USE OF INSULIN 04/08/2017 KAYCEE HASSAN Ot 162.9 MAL HILARIO BRONCH/LUNG NOS 04/08/2017 KAYCEE HASSAN Ot C34.90 MALIGNANT NEOPLASM OF [...] OF SUPRAGLOTTIS 04/08/2017 LILIAN TREJO DO Ot C32. 1 MALIGNANT NEOPLASM OF SUPRAGLOTTIS 04/08/2017 LILIAN TREJO DO Ot C34. 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 NEOPLASM OF UPPER [place], LEFT B 04/08/2017 LILIAN TREJO DO Ot C32. 1 MALIGNANT NEOPLASM OF SUPRAGLOTTIS 04/08/2017 LILIAN TREJO DO Ot C34. 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 NEOPLASM OF UPPER LOBE, LEFT B 04/08/2017 KAYCEE HASSANP Ot 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 OF SUPRAGLOTTIS 04/08/2017 KAYCEE HASSANP Ot C34.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 NEOPLASM OF UPPER LO[place], LEFT B 04/08/2017 KAYCEE HASSAN Ot M25.552 PAIN IN LEFT HIP 04/08/2017 ANAIS ANGULO MD Ot 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 OF SUPRAGLOTTIS 04/08/2017 ANAIS ANGULO MD Ot Z09 ENCNTR FOR F/U EXAM AFT TRTMT FOR COND O 04/08/2017 ANAIS ANGULO MD Ot Z96.8 9 PRESENCE OF OTHER SPECIFIED FUNCTIONAL I 04/08/2017 SERGEI CUTLER, STEF Arriola Ot C32 .1 MALIGNANT NEOPLASM OF SUPRAGLOTTIS 04/08/2017 ROBERTO CLANCY Ot Z12.31 ENCNTR SCREEN MAMMOGRAM FOR MALIGNANT NE 04/08/2017 KAYCEE HASSAN VOLLEYBALL PLAYER Ot 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 OF SUPRAGLOTTIS 04/08/2017 KAYCEE HASSAN VOLLEYBALL PLAYER Ot C34.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 NEOPLASM OF UPPER LOBE, LEFT B 04/08/2017 KAYCEE HASSAN VOLLEYBALL PLAYER Ot C32.1 MALIGNANT NEOPLASM OF SUPRAGLOTTIS 04/08/2017 KAYCEE HASSAN VOLLEYBALL PLAYER Ot C34.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 NEOPLASM OF UPPER LOBE, LEFT B 04/08/2017 SALOME STEVE Miguel A Ot C32.1 MALIGNANT NEOPLASM OF SUPRAGLOTTIS 04/08/2017 SALOME STEVE Miguel A Ot C34.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 NEOPLASM OF UPPER LOBE, LEFT B 04/08/2017 SALOME STEVE Miguel A Ot E11.43 TYPE 2 DIABETES W DIABETIC AUTONOMIC (PO 04/08/2017 SALOME STEVE Miguel A Ot E78.5 HYPERLIPIDEMIA, UNSPECIFIED 04/08/2017 POWER SALOME Miguel A Ot E83.42 HYPOMAGNESEMIA 04/08/2017 POWER SALOME Miguel A Ot F17.210 NICOTINE DEPENDENCE, CIGARETTES, UNCOMPL 04/08/2017 SALOME STEVE N Ot I10 ESSENTIAL (PRIMARY) HYPERTENSION 04/08/2017 SALOME STEVE Miguel A Ot I25.10 ATHSCL HEART DISEASE OF [place] CORONARY 04/08/2017 SALOME STEVE Miguel A Ot J43.9 EMPHYSEMA, UNSPECIFIED 04/08/2017 SALOME STEVE Miguel A Ot Z79.899 OTHER RETIREMENT (CURRENT) DRUG THERAPY 04/08/2017 SALOME STEVE Miguel A Ot Z92.21 PERSONAL HISTORY OF ANTINEOPLASTIC CHEMO 04/08/2017 POWER SALOME Miguel A Ot Z92.3 PERSONAL HISTORY OF IRRADIATION 04/22/2017 KAYCEE HASSAN VOLLEYBALL PLAYER Ot C32.1 MALIGNANT NEOPLASM OF SUPRAGLOTTIS 04/22/2017 KAYCEE HASSAN VOLLEYBALL PLAYER Ot C34.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 NEOPLASM OF UPPER LOBE, LEFT B 04/22/2017 NALINI JOHNS DO S Ot 246.2 CYST OF THYROID 04/22/2017 NALINI JOHNS DO S Ot 787.20 DYSPHAGIA, UNSPECIFIED 04/22/2017 STEF MAI MD Ot 241 .0 NONTOX UNINODULAR GOITER 04/22/2017 STEF MAI MD Ot 492 .8 EMPHYSEMA NEC 04/22/2017 STEF MAI MD Ot 784 .2 SWELLING IN HEAD NECK 04/22/2017 STEF MAI MD Ot 785 .6 ENLARGEMENT LYMPH NODES 04/22/2017 STEF MAI MD Ot 787.20 DYSPHAGIA, UNSPECIFIED 04/22/2017 STEF MAI MD Ot 240 .9 GOITER NOS 04/22/2017 STEF MAI MD Ot 780.79 OTH MALAISE FATIGUE 04/22/2017 STEF MAI MD Ot 784.42 DYSPHONIA 04/22/2017 JAMES CUTLER, ALBA Zamora Ot 401. 9 HYPERTENSION NOS 04/22/2017 JAMES CUTLER, ALBA Zamora Ot 414. 00 CORON ATHEROSCLER NOS TYPE VESSEL, NATIV 04/22/2017 ALBA RAMIREZ MD Ot 794. 30 ABN CARDIOVASC STUDY NOS 04/22/2017 SHARLENE CUTLER, MAGAN E Ot 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 04/22/2017 LILLY LEE DO Ot 161. 1 MALIG HILARIO SUPRAGLOTTIS 04/22/2017 LILLY LEE DO Ot V72. 63 PRE-PROCEDURAL LABORATORY EXAMINATION 04/22/2017 LILLY LEE DO Ot V72. 84 EXAM PRE-OPERATIVE NOS 04/22/2017 KAYCEE HASSAN VOLLEYBALL PLAYER Ot 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 04/22/2017 KAYCEE HASSAN VOLLEYBALL PLAYER Ot 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 04/22/2017 KAYCEE HASSAN [employer] PLAYER Ot 250.00 DIAB OLU WO COMPL, TYPE II OR UNSPEC TY 04/22/2017 KAYCEE HASSAN [employer] PLAYER Ot 305.1 TOBACCO USE DISORDER 04/22/2017 KAYCEE HASSAN [employer] PLAYER Ot 401.9 HYPERTENSION NOS 04/22/2017 KAYCEE HASSANP Ot 414.00 CORON ATHEROSCLER NOS TYPE VESSEL, NATIV 04/22/2017 KAYCEE HASSANP Ot 793.11 SOLITARY PULMONARY NODULE 04/22/2017 KAYCEE HASSAN Ot V45.81 AORTOCORONARY BYPASS 04/22/2017 KAYCEE HASSANP Ot V58.67 LONG-TERM (CURRENT) USE OF INSULIN 04/22/2017 KAYCEE HASSANP Ot V58.69 OT MED,LT,CURRENT USE 04/22/2017 KAYCEE HASSAN S [employer] PLAYER Ot 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 04/22/2017 HASSAN, HILAH S [employer]LEY[employer]ALL PLAYER Ot 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 04/22/2017 HASSANKAYCEE Marinelli S [employer] PLAYER Ot 250.00 DIAB OLU WO COMPL, TYPE II OR UNSPEC TY 04/22/2017 HASSAN, HILAH S [employer] PLAYER Ot 305.1 TOBACCO USE DISORDER 04/22/2017 SONYA HILAH S [employer]LEY[employer] PLAYER Ot 401.9 HYPERTENSION NOS 04/22/2017 HASSAN, HILAH S [employer] PLAYER Ot 414.00 CORON ATHEROSCLER NOS TYPE VESSEL, NATIV 04/22/2017 HASSAN, HILAH S [employer]LEY[employer] PLAYER Ot 793.11 SOLITARY PULMONARY NODULE 04/22/2017 SONYA HILAH S [employer] PLAYER Ot V45.81 AORTOCORONARY BYPASS 04/22/2017 TONJA HASSANAH S [employer]LEY[employer]ALL PLAYER Ot V58.67 LONG-TERM (CURRENT) USE OF INSULIN 04/22/2017 TONJA HASSANAH S [employer] PLAYER Ot V58.69 OTH MED,LT,CURRENT USE 04/22/2017 TONJA HASSANAH S [employer]LEY[employer] PLAYER Ot 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 04/22/2017 HASSAN, HILAH S [employer]LEY[employer]ALL PLAYER Ot 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 04/22/2017 TONJA HASSANAH S [employer]LEY[employer]ALL PLAYER Ot 250.00 DIAB OLU WO COMPL, TYPE II OR UNSPEC TY 04/22/2017 TONJA HASSANAH S [employer]LEY[employer] PLAYER Ot 305.1 TOBACCO USE DISORDER 04/22/2017 KAYCEE HASSAN S [employer] PLAYER Ot 401.9 HYPERTENSION NOS 04/22/2017 TONJA HASSANAH S [employer]LEY[employer] PLAYER Ot 414.00 CORON ATHEROSCLER NOS TYPE VESSEL, NATIV 04/22/2017 KAYCEE HASSAN S [employer]LEY[employer] PLAYER Ot 793.11 SOLITARY PULMONARY NODULE 04/22/2017 HASSAN, HILAH S [employer]LEY[employer] PLAYER Ot V45.81 AORTOCORONARY BYPASS 04/22/2017 HASSAN, HILAH S [employer]LEY[employer] PLAYER Ot V58.67 LONG-TERM (CURRENT) USE OF INSULIN 04/22/2017 HASSANTONJAAH S [employer]LEYBALL PLAYER Ot V58.69 OTH MED,LT,CURRENT USE 04/22/2017 HASSAN, HILAH S [employer] PLAYER Ot 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 04/22/2017 KAYCEE HASSAN S [employer] PLAYER Ot 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 04/22/2017 HASSANKAYCEE Marinelli S [employer] PLAYER Ot 250.00 DIAB OLU WO COMPL, TYPE II OR UNSPEC TY 04/22/2017 KAYCEE HASSAN S [employer] PLAYER Ot 305.1 TOBACCO USE DISORDER 04/22/2017 KAYCEE HASSAN S [employer] PLAYER Ot 401.9 HYPERTENSION NOS 04/22/2017 KAYCEE HASSAN S [employer] PLAYER Ot 414.00 CORON ATHEROSCLER NOS TYPE VESSEL, NATIV 04/22/2017 KAYCEE HASSAN S [employer] PLAYER Ot 793.11 SOLITARY PULMONARY NODULE 04/22/2017 KAYCEE HASSAN S [employer] PLAYER Ot V45.81 AORTOCORONARY BYPASS 04/22/2017 KAYCEE HASSAN S [employer] PLAYER Ot V58.67 LONG-TERM (CURRENT) USE OF INSULIN 04/22/2017 KAYCEE HASSAN S [employer] PLAYER Ot V58.69 OTH MED,LT,CURRENT USE 04/22/2017 KAYCEE HASSAN S [employer] PLAYER Ot 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 04/22/2017 KAYCEE HASSAN S [employer] PLAYER Ot 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 04/22/2017 KAYCEE HASSAN S [employer] PLAYER Ot 250.00 DIAB OLU WO COMPL, TYPE II OR UNSPEC TY 04/22/2017 TONJA HASSANAH S [employer]LEY[employer]ALL PLAYER Ot 305.1 TOBACCO USE DISORDER 04/22/2017 KAYCEE HASSAN S [employer] PLAYER Ot 401.9 HYPERTENSION NOS 04/22/2017 KAYCEE HASSAN S [employer] PLAYER Ot 414.00 CORON ATHEROSCLER NOS TYPE VESSEL, NATIV 04/22/2017 KAYCEE HASSAN S [employer] PLAYER Ot 793.11 SOLITARY PULMONARY NODULE 04/22/2017 KAYCEE HASSAN S [employer] PLAYER Ot V45.81 AORTOCORONARY BYPASS 04/22/2017 TONJA HASSANAH S V[employer]LEY[employer]ALL PLAYER Ot V58.67 LONG-TERM (CURRENT) USE OF INSULIN 04/22/2017 TONJA HASSANAH S [employer]LEY[employer] PLAYER Ot V58.69 OTH MED,LT,CURRENT USE 04/22/2017 TONJA HASSANAH S [employer]LEY[employer] PLAYER Ot 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 04/22/2017 KAYCEE HASSAN S [employer]LEY[employer] PLAYER Ot 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 04/22/2017 KAYCEE HASSAN S [employer]LEY[employer] PLAYER Ot 250.00 DIAB OLU WO COMPL, TYPE II OR UNSPEC TY 04/22/2017 KAYCEE HASSAN S [employer] PLAYER Ot 305.1 TOBACCO USE DISORDER 04/22/2017 KAYCEE HASSAN S [employer] PLAYER Ot 401.9 HYPERTENSION NOS 04/22/2017 KAYCEE HASSAN S [employer] PLAYER Ot 414.00 CORON ATHEROSCLER NOS TYPE VESSEL, NATIV 04/22/2017 KAYCEE HASSAN S [employer]LEY[employer] PLAYER Ot 4 96 CHR AIRWAY OBSTRUCT NEC 04/22/2017 KAYCEE HASSAN S [employer]LEY[employer] PLAYER Ot 793.11 SOLITARY PULMONARY NODULE 04/22/2017 KAYCEE HASSAN S [employer] PLAYER Ot V45.81 AORTOCORONARY BYPASS 04/22/2017 KAYCEE HASSAN S [employer] PLAYER Ot V58.67 LONG-TERM (CURRENT) USE OF INSULIN 04/22/2017 KAYCEE HASSAN S [employer] PLAYER Ot V58.69 OTH MED,LT,CURRENT USE 04/22/2017 SALOME STEVE N Ot 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 04/22/2017 SALOME STEVE Ot 496 CHR AIRWAY OBSTRUCT NEC 04/22/2017 SALOME STEVE N Ot 787.20 DYSPHAGIA, UNSPECIFIED 04/22/2017 SALOME STEVE N Ot 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 04/22/2017 ZAK BUCIO [employer]LEY[employer]ALL PLAYER Ot 250.02 DIAB OLU WO COMPL, TYPE II OR UNSPEC TY 04/22/2017 KAYCEE HASSAN S [employer]LEY[employer] PLAYER Ot 161.1 MALIG IHLARIO SUPRAGLOTTIS 04/22/2017 KAYCEE HASSAN S VOLLEYBALL PLAYER Ot 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 04/22/2017 KAYCEE HASSAN S VOLLEYBALL PLAYER Ot 250.00 DIAB OLU WO COMPL, TYPE II OR UNSPEC TY 04/22/2017 KAYCEE HASSAN S VOLLEYBALL PLAYER Ot 305.1 TOBACCO USE DISORDER 04/22/2017 KAYCEE HASSAN S VOLLEYBALL PLAYER Ot 401.9 HYPERTENSION NOS 04/22/2017 KAYCEE HASSAN S VOLLEYBALL PLAYER Ot 414.00 CORON ATHEROSCLER NOS TYPE VESSEL, NATIV 04/22/2017 KAYCEE HASSAN S VOLLEYBALL PLAYER Ot 4 96 CHR AIRWAY OBSTRUCT NEC 04/22/2017 KAYCEE HASSAN S VOLLEYBALL PLAYER Ot 793.11 SOLITARY PULMONARY NODULE 04/22/2017 KAYCEE HASSAN VOLLEYBALL PLAYER Ot V45.81 AORTOCORONARY BYPASS 04/22/2017 KAYCEE HASSAN S VOLLEYBALL PLAYER Ot V58.67 LONG-TERM (CURRENT) USE OF INSULIN 04/22/2017 KAYCEE HASSAN VOLLEYBALL PLAYER Ot V58.69 OTH MED,LT,CURRENT USE 04/22/2017 KAYCEE HASSAN VOLLEYBALL PLAYER Ot 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 04/22/2017 KAYCEE HASSAN VOLLEYBALL PLAYER Ot 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 04/22/2017 KAYCEE HASSAN S VOLLEYBALL PLAYER Ot 250.00 DIAB OLU WO COMPL, TYPE II OR UNSPEC TY 04/22/2017 KAYCEE HASSAN S VOLLEYBALL PLAYER Ot 305.1 TOBACCO USE DISORDER 04/22/2017 KAYCEE HASSAN S VOLLEYBALL PLAYER Ot 401.9 HYPERTENSION NOS 04/22/2017 KAYCEE HASSAN S VOLLEYBALL PLAYER Ot 414.00 CORON ATHEROSCLER NOS TYPE VESSEL, NATIV 04/22/2017 KAYCEE HASSAN VOLLEYBALL PLAYER Ot 4 96 CHR AIRWAY OBSTRUCT NEC 04/22/2017 KAYCEE HASSAN VOLLEYBALL PLAYER Ot 793.11 SOLITARY PULMONARY NODULE 04/22/2017 KAYCEE HASSAN VOLLEYBALL PLAYER Ot V45.81 AORTOCORONARY BYPASS 04/22/2017 KAYCEE HASSAN VOLLEYBALL PLAYER Ot V58.67 LONG-TERM (CURRENT) USE OF INSULIN 04/22/2017 KAYCEE HASSAN VOLLEYBALL PLAYER Ot V58.69 OTH MED,LT,CURRENT USE 04/22/2017 KAYCEE HASSAN VOLLEYBALL PLAYER Ot 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 4 HYPERLIPIDEMIA NEC/NOS 04/22/2017 KYLIE TAYLOR MD Ot 401. 9 HYPERTENSION NOS 04/22/2017 KYLIE TAYLOR MD Ot 414. 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 04/22/2017 TONJA HASSANAH S VOLLEYBALL PLAYER Ot 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 04/22/2017 TONJA HASSANAH S VOLLEYBALL PLAYER Ot 250.00 DIAB OLU WO COMPL, TYPE II OR UNSPEC TY 04/22/2017 TONJA HASSANAH S VOLLEYBALL PLAYER Ot 305.1 TOBACCO USE DISORDER 04/22/2017 KAYCEE HASSAN S VOLLEYBALL PLAYER Ot 401.9 HYPERTENSION NOS 04/22/2017 TONJA HASSANAH S VOLLEYBALL PLAYER Ot 414.00 CORON ATHEROSCLER NOS TYPE VESSEL, NATIV 04/22/2017 TONJA HASSANAH S VOLLEYBALL PLAYER Ot 4 96 CHR AIRWAY OBSTRUCT NEC 04/22/2017 TONJA HASSANAH S VOLLEYBALL PLAYER Ot 793.11 SOLITARY PULMONARY NODULE 04/22/2017 KAYCEE HASSAN S VOLLEYBALL PLAYER Ot V45.81 AORTOCORONARY BYPASS 04/22/2017 KAYCEE HASSAN S VOLLEYBALL PLAYER Ot V58.67 LONG-TERM (CURRENT) USE OF INSULIN 04/22/2017 KAYCEE HASSAN S VOLLEYBALL PLAYER Ot V58.69 OTH MED,LT,CURRENT USE 04/22/2017 KAYCEE HASSAN S VOLLEYBALL PLAYER Ot 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 04/22/2017 TONJA HASSANAH S VOLLEYBALL PLAYER Ot 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 04/22/2017 TONJA HASSANAH S VOLLEYBALL PLAYER Ot 250.00 DIAB OLU WO COMPL, TYPE II OR UNSPEC TY 04/22/2017 TONJA HASSANAH S VOLLEYBALL PLAYER Ot 305.1 TOBACCO USE DISORDER 04/22/2017 TONJA HASSANAH S VOLLEYBALL PLAYER Ot 401.9 HYPERTENSION NOS 04/22/2017 TONJA HASSANAH S VOLLEYBALL PLAYER Ot 414.00 CORON ATHEROSCLER NOS TYPE VESSEL, NATIV 04/22/2017 SONYA HILAH S VOLLEYBALL PLAYER Ot 4 96 CHR AIRWAY OBSTRUCT NEC 04/22/2017 HASSAN, HILAH S VOLLEYBALL PLAYER Ot 793.11 SOLITARY PULMONARY NODULE 04/22/2017 TONJA HASSANAH S VOLLEYBALL PLAYER Ot V45.81 AORTOCORONARY BYPASS 04/22/2017 SONYA HILAH S VOLLEYBALL PLAYER Ot V58.67 LONG-TERM (CURRENT) USE OF INSULIN 04/22/2017 SONYA HILAH S VOLLEYBALL PLAYER Ot V58.69 OTH MED,LT,CURRENT USE 04/22/2017 KAYCEE HASSAN Ot V58.81 FIT/ADJ VASCULAR CATHETER 04/22/2017 KAYCEE HASSAN VOLLEYBALL PLAYER Ot 141.9 MALIG HILARIO TONGUE NOS 04/22/2017 KAYCEE HASSAN VOLLEYBALL PLAYER Ot 793.11 SOLITARY PULMONARY NODULE 04/22/2017 Ot 786.6 CHES T SWELLING/MASS/LUMP 04/22/2017 Ot V72.63 PRE -PROCEDURAL LABORATORY EXAMINATION 04/22/2017 Ot V72.81 EVSF-VVB-IDISEKNEL CARDIOVASCULAR 04/22/2017 Ot V72.83 EXA M PRE- OPERATIVE NEC 04/22/2017 DARIAN JESSICA MD Ot 162. 9 MAL HILARIO BRONCH/LUNG NOS 04/22/2017 DARIAN JESSICA MD Ot 414. 01 CORONARY ATHEROSCLEROSIS OF [place] CORON 04/22/2017 DARIAN JESSICA MD Ot 782. 3 EDEMA 04/22/2017 SALOME STEVE Ot 793.11 SOLITARY PULMONARY NODULE 04/22/2017 KYLIE TAYLOR MD Ot 250. 00 DIAB OLU WO COMPL, TYPE II OR UNSPEC TY 04/22/2017 KYLIE TAYLOR MD Ot 401. 9 HYPERTENSION NOS 04/22/2017 KYLIE TAYLOR MD Ot 414. 00 CORON ATHEROSCLER NOS TYPE VESSEL, NATIV 04/22/2017 KYLIE TAYLOR MD Ot 428. 0 CONGESTIVE HEART FAILURE NOS 04/22/2017 KYLIE TAYLOR MD Ot V58. 67 LONG-TERM (CURRENT) USE OF INSULIN 04/22/2017 KAYCEE HASSAN Ot 162.9 MAL HILARIO BRONCH/LUNG NOS 04/22/2017 KAYCEE HASSAN Ot C34.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 04/22/2017 KAYCEE HASSAN Ot C32.1 MALIGNANT NEOPLASM OF SUPRAGLOTTIS 04/22/2017 KAYCEE HASSAN Ot Z12.31 ENCNTR SCREEN MAMMOGRAM FOR MALIGNANT NE 04/22/2017 KAYCEE HASSAN Ot C32.1 MALIGNANT NEOPLASM OF SUPRAGLOTTIS 04/22/2017 LILLY LEE DO Ot Z01.818 ENCOUNTER FOR OTHER PREPROCEDURAL EXAMIN 04/22/2017 POWER, BOBAN N Ot C32.1 MALIGNANT NEOPLASM OF SUPRAGLOTTIS 04/22/2017 LILIAN TREJO DO M Ot C32. 1 MALIGNANT NEOPLASM OF SUPRAGLOTTIS 04/22/2017 LILIAN TREJO DO Ot C34. 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 NEOPLASM OF UPPER LOBE, LEFT B 04/22/2017 LILIAN TREJO DO Ot C32. 1 MALIGNANT NEOPLASM OF SUPRAGLOTTIS 04/22/2017 LILIAN TREJO DO Ot C34. 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 NEOPLASM OF UPPER LOBE, LEFT B 04/22/2017 KAYCEE HASSANP Ot C32.1 MALIGNANT NEOPLASM OF SUPRAGLOTTIS 04/22/2017 KAYCEE HASSANP Ot C34.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 NEOPLASM OF UPPER LOBE, LEFT B 04/22/2017 KAYCEE HASSAN Ot M25.552 PAIN IN LEFT HIP 04/22/2017 ANAIS ANGULO MD Ot C32.1 MALIGNANT NEOPLASM OF SUPRAGLOTTIS 04/22/2017 ANAIS ANGULO MD Ot Z09 ENCNTR FOR F/U EXAM AFT TRTMT FOR COND O 04/22/2017 ANAIS ANGULO MD Ot Z96.8 9 PRESENCE OF OTHER SPECIFIED FUNCTIONAL I 04/22/2017 SERGEI CUTLER, STEF Arriola Ot C32 .1 MALIGNANT NEOPLASM OF SUPRAGLOTTIS 04/22/2017 ROBERTO CLANCY VOLLEYBALL PLAYER Ot Z12.31 ENCNTR SCREEN MAMMOGRAM FOR MALIGNANT NE 04/22/2017 KAYCEE HASSAN VOLLEYBALL PLAYER Ot C32.1 MALIGNANT NEOPLASM OF SUPRAGLOTTIS 04/22/2017 KAYCEE HASSAN VOLLEYBALL PLAYER Ot C34.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 NEOPLASM OF UPPER LOBE, LEFT B 04/22/2017 KAYCEE HASSAN VOLLEYBALL PLAYER Ot C32.1 MALIGNANT NEOPLASM OF SUPRAGLOTTIS 04/22/2017 KAYCEE HASSAN VOLLEYBALL PLAYER Ot C34.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 NEOPLASM OF UPPER LOBE, LEFT B 04/22/2017 SALOME STEVE Ot C32.1 MALIGNANT NEOPLASM OF SUPRAGLOTTIS 04/22/2017 SALOME STEVE Ot C34.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 NEOPLASM OF UPPER LOBE, LEFT B 04/22/2017 SALOME STEVE Ot E11.43 TYPE 2 DIABETES W DIABETIC AUTONOMIC (PO 04/22/2017 SALOME STEVE Ot E78.5 HYPERLIPIDEMIA, UNSPECIFIED 04/22/2017 SALOME STEVE N Ot E83.42 HYPOMAGNESEMIA 04/22/2017 SALOME STEVE N Ot F17.210 NICOTINE DEPENDENCE, CIGARETTES, UNCOMPL 04/22/2017 SALOME STEVE N Ot I10 ESSENTIAL (PRIMARY) HYPERTENSION 04/22/2017 SALOME STEVE N Ot I25.10 ATHSCL HEART DISEASE OF [place] CORONARY 04/22/2017 SALOME STEVE N Ot J43.9 EMPHYSEMA, UNSPECIFIED 04/22/2017 SALOME STEVE N Ot Z79.899 OTHER RETIREMENT (CURRENT) DRUG THERAPY 04/22/2017 SALOME STEVE N Ot Z92.21 PERSONAL HISTORY OF ANTINEOPLASTIC CHEMO 04/22/2017 SALOME STEVE N Ot Z92.3 PERSONAL HISTORY OF IRRADIATION 04/28/2017 KAYCEE HASSAN S VOLLEYBALL PLAYER Ot C32.1 MALIGNANT NEOPLASM OF SUPRAGLOTTIS 04/28/2017 KAYCEE HASSAN VOLLEYBALL PLAYER Ot C34.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 NEOPLASM OF UPPER LOBE, LEFT B 05/12/2017 KAYECE HASSAN VOLLEYBALL PLAYER Ot C32.1 MALIGNANT NEOPLASM OF SUPRAGLOTTIS 05/12/2017 KAYCEE HASSAN S VOLLEYBALL PLAYER Ot C34.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 NEOPLASM OF UPPER LOBE, LEFT B 05/15/2017 SALOME STEVE N Ot C32.1 MALIGNANT NEOPLASM OF SUPRAGLOTTIS 05/15/2017 SALOME STEVE N Ot C34.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 NEOPLASM OF UPPER LOBE, LEFT B 05/15/2017 SALOME STEVE N Ot E11.43 TYPE 2 DIABETES W DIABETIC AUTONOMIC (PO 05/15/2017 SALOME STEVE N Ot E78.5 HYPERLIPIDEMIA, UNSPECIFIED 05/15/2017 SALOME STEVE N Ot E83.42 HYPOMAGNESEMIA 05/15/2017 SALOME STEVE N Ot F17.210 NICOTINE DEPENDENCE, CIGARETTES, UNCOMPL 05/15/2017 SALOME STEVE N Ot I10 ESSENTIAL (PRIMARY) HYPERTENSION 05/15/2017 SALOME STEVE N Ot I25.10 ATHSCL HEART DISEASE OF [place] CORONARY 05/15/2017 SALOME STEVE N Ot J43.9 EMPHYSEMA, UNSPECIFIED 05/15/2017 SALOME STEVE N Ot Z79.899 OTHER RETIREMENT (CURRENT) DRUG THERAPY 05/15/2017 SALOME STEVE Ot Z92.21 PERSONAL HISTORY OF ANTINEOPLASTIC CHEMO 05/15/2017 SALOME STEVE Ot Z92.3 PERSONAL HISTORY OF IRRADIATION 06/05/2017 KAYCEE HASSAN VOLLEYBALL PLAYER Ot C32.1 MALIGNANT NEOPLASM OF SUPRAGLOTTIS 06/05/2017 KAYCEE HASSAN VOLLEYBALL PLAYER Ot C34.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 NEOPLASM OF UPPER LOBE, LEFT B 06/05/2017 KAYCEE HASSANP Ot M25.552 PAIN IN LEFT HIP 06/05/2017 ANAIS ANGULO MD Ot C32.1 MALIGNANT NEOPLASM OF SUPRAGLOTTIS 06/05/2017 ANAIS ANGULO MD Ot Z09 ENCNTR FOR F/U EXAM AFT TRTMT FOR COND O 06/05/2017 ANAIS ANGULO MD Ot Z96.8 9 PRESENCE OF OTHER SPECIFIED FUNCTIONAL I 06/05/2017 SERGEI CUTLER, STEF Arriola Ot C32 .1 MALIGNANT NEOPLASM OF SUPRAGLOTTIS 06/05/2017 ROBERTO CLANCY VOLLEYBALL PLAYER Ot Z12.31 ENCNTR SCREEN MAMMOGRAM FOR MALIGNANT NE 06/05/2017 KAYCEE HASSAN VOLLEYBALL PLAYER Ot C32.1 MALIGNANT NEOPLASM OF SUPRAGLOTTIS 06/05/2017 KAYCEE HASSAN VOLLEYBALL PLAYER Ot C34.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 NEOPLASM OF UPPER LOBE, LEFT B 06/05/2017 KAYCEE HASSAN VOLLEYBALL PLAYER Ot C32.1 MALIGNANT NEOPLASM OF SUPRAGLOTTIS 06/05/2017 KAYCEE HASSAN VOLLEYBALL PLAYER Ot C34.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 NEOPLASM OF UPPER LOBE, LEFT B 06/05/2017 SALOME STEVE Ot C32.1 MALIGNANT NEOPLASM OF SUPRAGLOTTIS 06/05/2017 SALOME STEVE Ot C34.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 NEOPLASM OF UPPER LOBE, LEFT B 06/05/2017 SALOME STEVE Ot E11.43 TYPE 2 DIABETES W DIABETIC AUTONOMIC (PO 06/05/2017 SALOME STEVE Ot E78.5 HYPERLIPIDEMIA, UNSPECIFIED 06/05/2017 SALOME STEVE Ot E83.42 HYPOMAGNESEMIA 06/05/2017 SALOME STEVE Ot F17.210 NICOTINE DEPENDENCE, CIGARETTES, UNCOMPL 06/05/2017 SALOME STEVE Ot I10 ESSENTIAL (PRIMARY) HYPERTENSION 06/05/2017 SALOME STEVE Miguel A Ot I25.10 ATHSCL HEART DISEASE OF [place] CORONARY 06/05/2017 SALOME STEVE Miguel A Ot J43.9 EMPHYSEMA, UNSPECIFIED 06/05/2017 SALOME STEVE Miguel A Ot Z79.899 OTHER RETIREMENT (CURRENT) DRUG THERAPY 06/05/2017 SALOME STEVE Miguel A Ot Z92.21 PERSONAL HISTORY OF ANTINEOPLASTIC CHEMO 06/05/2017 SALOME STEVE Miguel A Ot Z92.3 PERSONAL HISTORY OF IRRADIATION 06/10/2017 ROBERTO CLANCY VOLLEYBALL PLAYER Ot Z12.31 ENCNTR SCREEN MAMMOGRAM FOR MALIGNANT NE 06/12/2017 KAYCEE HASSAN VOLLEYBALL PLAYER Ot C32.1 MALIGNANT NEOPLASM OF SUPRAGLOTTIS 06/12/2017 KAYCEE HASSANP Ot C34.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 NEOPLASM OF UPPER LOBE, LEFT B 06/12/2017 KAYCEE HASSANP Ot M25.552 PAIN IN LEFT HIP 06/12/2017 ANAIS ANGULO MD Ot C32.1 MALIGNANT NEOPLASM OF SUPRAGLOTTIS 06/12/2017 ANAIS ANGULO MD Ot Z09 ENCNTR FOR F/U EXAM AFT TRTMT FOR COND O 06/12/2017 ANAIS ANGULO MD Ot Z96.8 9 PRESENCE OF OTHER SPECIFIED FUNCTIONAL I 06/12/2017 SERGEI CUTLER, STEF Arriola Ot C32 .1 MALIGNANT NEOPLASM OF SUPRAGLOTTIS 06/12/2017 ROBERTO CLANCY VOLLEYBALL PLAYER Ot Z12.31 ENCNTR SCREEN MAMMOGRAM FOR MALIGNANT NE 06/12/2017 KAYCEE HASSANP Ot C32.1 MALIGNANT NEOPLASM OF SUPRAGLOTTIS 06/12/2017 KAYCEE HASSAN VOLLEYBALL PLAYER Ot C34.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 NEOPLASM OF UPPER LOBE, LEFT B 06/12/2017 KAYCEE HASSANP Ot C32.1 MALIGNANT NEOPLASM OF SUPRAGLOTTIS 06/12/2017 KAYCEE HASSAN VOLLEYBALL PLAYER Ot C34.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 NEOPLASM OF UPPER LOBE, LEFT B 06/12/2017 SALOME STEVE Ot C32.1 MALIGNANT NEOPLASM OF SUPRAGLOTTIS 06/12/2017 SALOME STEVE Ot C34.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 NEOPLASM OF UPPER LOBE, LEFT B 06/12/2017 SALOME STEVE Ot E11.43 TYPE 2 DIABETES W DIABETIC AUTONOMIC (PO 06/12/2017 SALOME STEVE Ot E78.5 HYPERLIPIDEMIA, UNSPECIFIED 06/12/2017 SALOME STEVE Ot E83.42 HYPOMAGNESEMIA 06/12/2017 SALOME STEVE Ot F17.210 NICOTINE DEPENDENCE, CIGARETTES, UNCOMPL 06/12/2017 SALOME STEVE Ot I10 ESSENTIAL (PRIMARY) HYPERTENSION 06/12/2017 SALOME STEVE Ot I25.10 ATHSCL HEART DISEASE OF [place] CORONARY 06/12/2017 SALOME STEVE Ot J43.9 EMPHYSEMA, UNSPECIFIED 06/12/2017 SALOME STEVE Ot Z79.899 OTHER RETIREMENT (CURRENT) DRUG THERAPY 06/12/2017 SALOME STEVE Ot Z92.21 PERSONAL HISTORY OF ANTINEOPLASTIC CHEMO 06/12/2017 SALOME STEVE Ot Z92.3 PERSONAL HISTORY OF IRRADIATION 06/12/2017 MADL, ROBERTO L VOLLEYBALL PLAYER Ot R10.10 UPPER ABDOMINAL PAIN, UNSPECIFIED 06/12/2017 MADL, ROBERTO L VOLLEYBALL PLAYER Ot R74 .8 ABNORMAL LEVELS OF OTHER SERUM ENZYMES 06/12/2017 JEZL, ROBERTO L VOLLEYBALL PLAYER Ot Z85.118 PERSONAL HISTORY OF MALIGNANT NEOPLASM O 06/12/2017 MADL, ROBERTO L VOLLEYBALL PLAYER Ot Z85.21 PERSONAL HISTORY OF MALIGNANT NEOPLASM O 06/12/2017 MADL ROBERTO L VOLLEYBALL PLAYER Ot Z90.49 ACQUIRED ABSENCE OF OTHER SPECIFIED PART 06/12/2017 MADL, ROBERTO L VOLLEYBALL PLAYER Ot Z12.31 ENCNTR SCREEN MAMMOGRAM FOR MALIGNANT NE 06/30/2017 MADL, ROBERTO L VOLLEYBALL PLAYER Ot R10.10 UPPER ABDOMINAL PAIN, UNSPECIFIED 06/30/2017 MADL, ROBERTO L VOLLEYBALL PLAYER Ot R74 .8 ABNORMAL LEVELS OF OTHER SERUM ENZYMES 06/30/2017 MADL, ROBERTO L VOLLEYBALL PLAYER Ot Z85.118 PERSONAL HISTORY OF MALIGNANT NEOPLASM O 06/30/2017 MADL, ROBERTO L VOLLEYBALL PLAYER Ot Z85.21 PERSONAL HISTORY OF MALIGNANT NEOPLASM O 06/30/2017 MADL, ROBERTO L VOLLEYBALL PLAYER Ot Z90.49 ACQUIRED ABSENCE OF OTHER SPECIFIED PART 07/02/2017 SALOME STEVE Miguel A Ot C32.1 MALIGNANT NEOPLASM OF SUPRAGLOTTIS 07/02/2017 SALOME STEVE Miguel A Ot C34.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 NEOPLASM OF UPPER LOBE, LEFT B 07/02/2017 SALOME STEVE Miguel A Ot E11.43 TYPE 2 DIABETES W DIABETIC AUTONOMIC (PO 07/02/2017 POWER SALOME Grady Ot E78.5 HYPERLIPIDEMIA, UNSPECIFIED 07/02/2017 POWER PIOTRBRANDO Miguel A Ot E83.42 HYPOMAGNESEMIA 07/02/2017 POWER SALOME Grady Ot F17.210 NICOTINE DEPENDENCE, CIGARETTES, UNCOMPL 07/02/2017 POWER SALOME Grady Ot I10 ESSENTIAL (PRIMARY) HYPERTENSION 07/02/2017 POWER SALOME Grady Ot I25.10 ATHSCL HEART DISEASE OF [place] CORONARY 07/02/2017 POWER PIOTRBRANDO Miguel A Ot J43.9 EMPHYSEMA, UNSPECIFIED 07/02/2017 SALOME STEVE Miguel A Ot Z79.899 OTHER EXPEDITER CLERK (CURRENT) DRUG THERAPY 07/02/2017 SALOME STEVE Miguel A Ot Z92.21 PERSONAL HISTORY OF ANTINEOPLASTIC CHEMO 07/02/2017 SALOME STEVE Miguel A Ot Z92.3 PERSONAL HISTORY OF IRRADIATION 07/03/2017 JEZROBERTO Farley VERNON Ot Z12.31 ENCNTR SCREEN MAMMOGRAM FOR MALIGNANT NE 07/07/2017 NALINI JOHNS DO Ot 246.2 CYST OF THYROID 07/07/2017 NALINI JOHNS DO S Ot 787.20 DYSPHAGIA, UNSPECIFIED 07/07/2017 STEF MAI MD Ot 241 .0 NONTOX UNINODULAR GOITER 07/07/2017 STEF MAI MD Ot 492 .8 EMPHYSEMA NEC 07/07/2017 STEF MAI MD Ot 784 .2 SWELLING IN HEAD NECK 07/07/2017 STEF MAI MD Ot 785 .6 ENLARGEMENT LYMPH NODES 07/07/2017 STEF MAI MD Ot 787.20 DYSPHAGIA, UNSPECIFIED 07/07/2017 STEF MAI MD Ot 240 .9 GOITER NOS 07/07/2017 STEF MAI MD Ot 780.79 OTH MALAISE FATIGUE 07/07/2017 STEF MAI MD Ot 784.42 DYSPHONIA 07/07/2017 JAMES CUTLER, ALBA Zamora Ot 401. 9 HYPERTENSION NOS 07/07/2017 JAMES CUTLER, ALBA Zamora Ot 414. 00 CORON ATHEROSCLER NOS TYPE VESSEL, NATIV 07/07/2017 JAMES CUTLER, ALBA Zamora Ot 794. 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 1 MALIG HILARIO SUPRAGLOTTIS 07/07/2017 LEE DOLILLY Ot V72. 63 PRE-PROCEDURAL LABORATORY EXAMINATION 07/07/2017 ARBUCKLE DOLILLY Ot V72. 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 07/07/2017 HASSAN, HILAH S VOLLEYBALL PLAYER Ot 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 07/07/2017 HASSAN, HILAH S VOLLEYBALL PLAYER Ot 250.00 DIAB OLU WO COMPL, TYPE II OR UNSPEC TY 07/07/2017 HASSAN, HILAH S VOLLEYBALL PLAYER Ot 305.1 TOBACCO USE DISORDER 07/07/2017 TONJA HASSANAH S VOLLEYBALL PLAYER Ot 401.9 HYPERTENSION NOS 07/07/2017 HASSAN, HILAH S VOLLEYBALL PLAYER Ot 414.00 CORON ATHEROSCLER NOS TYPE VESSEL, NATIV 07/07/2017 KAYCEE HASSAN S VOLLEYBALL PLAYER Ot 793.11 SOLITARY PULMONARY NODULE 07/07/2017 KAYCEE HASSAN S VOLLEYBALL PLAYER Ot V45.81 AORTOCORONARY BYPASS 07/07/2017 KAYCEE HASSAN S VOLLEYBALL PLAYER Ot V58.67 LONG-TERM (CURRENT) USE OF INSULIN 07/07/2017 KAYCEE HASSAN S VOLLEYBALL PLAYER Ot V58.69 OT MED,LT,CURRENT USE 07/07/2017 TONJA HASSANAH S VOLLEYBALL PLAYER Ot 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 07/07/2017 HASSAN, HILAH S VOLLEYBALL PLAYER Ot 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 07/07/2017 HASSAN HILAH S VOLLEYBALL PLAYER Ot 250.00 DIAB OLU WO COMPL, TYPE II OR UNSPEC TY 07/07/2017 HSASAN HILAH S VOLLEYBALL PLAYER Ot 305.1 TOBACCO USE DISORDER 07/07/2017 HASSANTONJAAH S VOLLEYBALL PLAYER Ot 401.9 HYPERTENSION NOS 07/07/2017 TONJA HASSANAH S VOLLEYBALL PLAYER Ot 414.00 CORON ATHEROSCLER NOS TYPE VESSEL, NATIV 07/07/2017 KAYCEE HASSAN S VOLLEYBALL PLAYER Ot 793.11 SOLITARY PULMONARY NODULE 07/07/2017 KAYCEE HASSAN S VOLLEYBALL PLAYER Ot V45.81 AORTOCORONARY BYPASS 07/07/2017 KAYCEE HASSAN S VOLLEYBALL PLAYER Ot V58.67 LONG-TERM (CURRENT) USE OF INSULIN 07/07/2017 KAYCEE HASSAN S VOLLEYBALL PLAYER Ot V58.69 OTH MED,LT,CURRENT USE 07/07/2017 KAYCEE HASSAN S VOLLEYBALL PLAYER Ot 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 07/07/2017 TONJA HASSANAH S VOLLEYBALL PLAYER Ot 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 07/07/2017 SONYA HILAH S VOLLEYBALL PLAYER Ot 250.00 DIAB OLU WO COMPL, TYPE II OR UNSPEC TY 07/07/2017 SONYA HILAH S VOLLEYBALL PLAYER Ot 305.1 TOBACCO USE DISORDER 07/07/2017 SONYA HILAH S VOLLEYBALL PLAYER Ot 401.9 HYPERTENSION NOS 07/07/2017 KAYCEE HASSAN S VOLLEYBALL PLAYER Ot 414.00 CORON ATHEROSCLER NOS TYPE VESSEL, NATIV 07/07/2017 KAYCEE HASSAN S VOLLEYBALL PLAYER Ot 793.11 SOLITARY PULMONARY NODULE 07/07/2017 KAYCEE HASSAN S VOLLEYBALL PLAYER Ot V45.81 AORTOCORONARY BYPASS 07/07/2017 KAYCEE HASSAN S VOLLEYBALL PLAYER Ot V58.67 LONG-TERM (CURRENT) USE OF INSULIN 07/07/2017 TONJA HASSANAH S VOLLEYBALL PLAYER Ot V58.69 OTH MED,LT,CURRENT USE 07/07/2017 KAYCEE HASSAN S VOLLEYBALL PLAYER Ot 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 07/07/2017 TONJA HASSANAH S VOLLEYBALL PLAYER Ot 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 07/07/2017 SONYA HILAH S VOLLEYBALL PLAYER Ot 250.00 DIAB OLU WO COMPL, TYPE II OR UNSPEC TY 07/07/2017 SONYA HILAH S VOLLEYBALL PLAYER Ot 305.1 TOBACCO USE DISORDER 07/07/2017 SONYA HILAH S VOLLEYBALL PLAYER Ot 401.9 HYPERTENSION NOS 07/07/2017 HASSAN, HILAH S VOLLEYBALL PLAYER Ot 414.00 CORON ATHEROSCLER NOS TYPE VESSEL, NATIV 07/07/2017 TONJA HASSANAH S VOLLEYBALL PLAYER Ot 793.11 SOLITARY PULMONARY NODULE 07/07/2017 KAYCEE HASSAN V[employer] PLAYER Ot V45.81 AORTOCORONARY BYPASS 07/07/2017 KAYCEE HASSAN [employer] PLAYER Ot V58.67 LONG-TERM (CURRENT) USE OF INSULIN 07/07/2017 KAYCEE HASSAN S [employer] PLAYER Ot V58.69 OTH MED,LT,CURRENT USE 07/07/2017 KAYCEE HASSAN S [employer] PLAYER Ot 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 07/07/2017 KAYCEE HASSAN S [employer] PLAYER Ot 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 07/07/2017 KAYCEE HASSAN S [employer] PLAYER Ot 250.00 DIAB OLU WO COMPL, TYPE II OR UNSPEC TY 07/07/2017 KAYCEE HASSAN S [employer] PLAYER Ot 305.1 TOBACCO USE DISORDER 07/07/2017 KAYCEE HASSAN S [employer] PLAYER Ot 401.9 HYPERTENSION NOS 07/07/2017 KAYCEE HASSAN S [employer] PLAYER Ot 414.00 CORON ATHEROSCLER NOS TYPE VESSEL, NATIV 07/07/2017 KAYCEE HASSAN S [employer] PLAYER Ot 793.11 SOLITARY PULMONARY NODULE 07/07/2017 KAYCEE HASSAN S [employer] PLAYER Ot V45.81 AORTOCORONARY BYPASS 07/07/2017 KAYCEE HASSAN S [employer] PLAYER Ot V58.67 LONG-TERM (CURRENT) USE OF INSULIN 07/07/2017 KAYCEE HASSAN [employer] PLAYER Ot V58.69 OTH MED,LT,CURRENT USE 07/07/2017 KAYCEE HASSAN [employer] PLAYER Ot 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 07/07/2017 KAYCEE HASSAN S [employer] PLAYER Ot 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 07/07/2017 KAYCEE HASSAN S [employer] PLAYER Ot 250.00 DIAB OLU WO COMPL, TYPE II OR UNSPEC TY 07/07/2017 KAYCEE HASSAN S [employer] PLAYER Ot 305.1 TOBACCO USE DISORDER 07/07/2017 KAYCEE HASSAN S [employer] PLAYER Ot 401.9 HYPERTENSION NOS 07/07/2017 TONJA HASSANAH S [employer] PLAYER Ot 414.00 CORON ATHEROSCLER NOS TYPE VESSEL, NATIV 07/07/2017 KAYCEE HASSAN S [employer] PLAYER Ot 4 96 CHR AIRWAY OBSTRUCT NEC 07/07/2017 KAYCEE HASSAN S [employer] PLAYER Ot 793.11 SOLITARY PULMONARY NODULE 07/07/2017 AKYCEE HASSAN [employer] PLAYER Ot V45.81 AORTOCORONARY BYPASS 07/07/2017 KAYCEE HASSAN [employer] PLAYER Ot V58.67 LONG-TERM (CURRENT) USE OF INSULIN 07/07/2017 KAYCEE HASSAN [employer] PLAYER Ot V58.69 OTH MED,LT,CURRENT USE 07/07/2017 SALOME STEVE N Ot 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 07/07/2017 SALOME STEVE N Ot 496 CHR AIRWAY OBSTRUCT NEC 07/07/2017 SALOME STEVE N Ot 787.20 DYSPHAGIA, UNSPECIFIED 07/07/2017 SALOME STEVE N Ot 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 07/07/2017 ZAK BUCIO [employer] PLAYER Ot 250.02 DIAB OLU WO COMPL, TYPE II OR UNSPEC TY 07/07/2017 KAYCEE HASSAN S [employer] PLAYER Ot 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 07/07/2017 KAYCEE HASSAN [employer] PLAYER Ot 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 07/07/2017 KAYCEE HASSAN S [employer] PLAYER Ot 250.00 DIAB OLU WO COMPL, TYPE II OR UNSPEC TY 07/07/2017 KAYCEE HASSAN S [employer] PLAYER Ot 305.1 TOBACCO USE DISORDER 07/07/2017 KAYCEE HASSAN [employer]ER Ot 401.9 HYPERTENSION NOS 07/07/2017 KAYCEE HASSAN S [employer] PLAYER Ot 414.00 CORON ATHEROSCLER NOS TYPE VESSEL, NATIV 07/07/2017 KAYCEE HASSAN [employer] PLAYER Ot 4 96 CHR AIRWAY OBSTRUCT NEC 07/07/2017 KAYCEE HASSAN [employer] PLAYER Ot 793.11 SOLITARY PULMONARY NODULE 07/07/2017 KAYCEE HASSAN [employer] PLAYER Ot V45.81 AORTOCORONARY BYPASS 07/07/2017 KAYCEE HASSAN [employer] PLAYER Ot V58.67 LONG-TERM (CURRENT) USE OF INSULIN 07/07/2017 KAYCEE HASSAN [employer]ER Ot V58.69 OTH MED,LT,CURRENT USE 07/07/2017 KAYCEE HASSAN S [employer] PLAYER Ot 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 07/07/2017 KAYCEE HASSAN S [employer] PLAYER Ot 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 07/07/2017 KAYCEE HASSAN S [employer] PLAYER Ot 250.00 DIAB OLU WO COMPL, TYPE II OR UNSPEC TY 07/07/2017 TONJA HASSANAH S [employer] PLAYER Ot 305.1 TOBACCO USE DISORDER 07/07/2017 KAYCEE HASSAN S [employer] PLAYER Ot 401.9 HYPERTENSION NOS 07/07/2017 KAYCEE HASSAN S [employer] PLAYER Ot 414.00 CORON ATHEROSCLER NOS TYPE VESSEL, NATIV 07/07/2017 KAYCEE HASSAN [employer] PLAYER Ot 4 96 CHR AIRWAY OBSTRUCT NEC 07/07/2017 KAYCEE HASSAN S [employer] PLAYER Ot 793.11 SOLITARY PULMONARY NODULE 07/07/2017 KAYCEE HASSAN S [employer] PLAYER Ot V45.81 AORTOCORONARY BYPASS 07/07/2017 KAYCEE HASSAN [employer] PLAYER Ot V58.67 LONG-TERM (CURRENT) USE OF INSULIN 07/07/2017 KAYCEE HASSAN [employer] PLAYER Ot V58.69 OT MED,LT,CURRENT USE 07/07/2017 KAYCEE HASSAN [employer] PLAYER Ot 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 4 HYPERLIPIDEMIA NEC/NOS 07/07/2017 KYLIE TAYLOR MD Ot 401. 9 HYPERTENSION NOS 07/07/2017 KYLIE TAYLOR MD Ot 414. 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 07/07/2017 KAYCEE HASSAN S [employer] PLAYER Ot 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 07/07/2017 KAYCEE HASSAN S [employer] PLAYER Ot 250.00 DIAB OLU WO COMPL, TYPE II OR UNSPEC TY 07/07/2017 KAYCEE HASSAN S [employer] PLAYER Ot 305.1 TOBACCO USE DISORDER 07/07/2017 KAYCEE HASSAN S [employer]ER Ot 401.9 HYPERTENSION NOS 07/07/2017 KAYCEE HASSAN S [employer] PLAYER Ot 414.00 CORON ATHEROSCLER NOS TYPE VESSEL, NATIV 07/07/2017 KAYCEE HASSAN [employer] PLAYER Ot 4 96 CHR AIRWAY OBSTRUCT NEC 07/07/2017 KAYCEE HASSAN [employer] PLAYER Ot 793.11 SOLITARY PULMONARY NODULE 07/07/2017 KAYCEE HASSAN VOLLEYBALL PLAYER Ot V45.81 AORTOCORONARY BYPASS 07/07/2017 KAYCEE HASSAN VOLLEYBALL PLAYER Ot V58.67 LONG-TERM (CURRENT) USE OF INSULIN 07/07/2017 KAYCEE HASSAN VOLLEYBALL PLAYER Ot V58.69 OTH MED,LT,CURRENT USE 07/07/2017 KAYCEE HASSAN VOLLEYBALL PLAYER Ot 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 07/07/2017 KAYCEE HASSAN VOLLEYBALL PLAYER Ot 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 07/07/2017 KAYCEE HASSAN VOLLEYBALL PLAYER Ot 250.00 DIAB OLU WO COMPL, TYPE II OR UNSPEC TY 07/07/2017 KAYCEE HASSAN VOLLEYBALL PLAYER Ot 305.1 TOBACCO USE DISORDER 07/07/2017 KAYCEE HASSAN VOLLEYBALL PLAYER Ot 401.9 HYPERTENSION NOS 07/07/2017 KAYCEE HASSAN VOLLEYBALL PLAYER Ot 414.00 CORON ATHEROSCLER NOS TYPE VESSEL, NATIV 07/07/2017 KAYCEE HASSAN VOLLEYBALL PLAYER Ot 4 96 CHR AIRWAY OBSTRUCT NEC 07/07/2017 KAYCEE HASSAN VOLLEYBALL PLAYER Ot 793.11 SOLITARY PULMONARY NODULE 07/07/2017 KAYCEE HASSAN VOLLEYBALL PLAYER Ot V45.81 AORTOCORONARY BYPASS 07/07/2017 KAYCEE HASSAN VOLLEYBALL PLAYER Ot V58.67 LONG-TERM (CURRENT) USE OF INSULIN 07/07/2017 KAYCEE HASSAN VOLLEYBALL PLAYER Ot V58.69 OTH MED,LT,CURRENT USE 07/07/2017 KAYCEE HASSAN VOLLEYBALL PLAYER Ot V58.81 FIT/ADJ VASCULAR CATHETER 07/07/2017 KAYCEE HASSAN VOLLEYBALL PLAYER Ot 141.9 MALIG HILARIO TONGUE NOS 07/07/2017 KAYCEE HASSAN VOLLEYBALL PLAYER Ot 793.11 SOLITARY PULMONARY NODULE 07/07/2017 Ot 786.6 CHES T SWELLING/MASS/LUMP 07/07/2017 Ot V72.63 PRE -PROCEDURAL LABORATORY EXAMINATION 07/07/2017 Ot V72.81 SMDO-KET-WTSYGTPYK CARDIOVASCULAR 07/07/2017 Ot V72.83 EXA M PRE- OPERATIVE NEC 07/07/2017 DARIAN JESSICA MD Ot 162. 9 MAL HILARIO BRONCH/LUNG NOS 07/07/2017 DARIAN JESSICA MD Ot 414. 01 CORONARY ATHEROSCLEROSIS OF [place] CORON 07/07/2017 DARIAN JESSICA MD Ot 782. 3 EDEMA 07/07/2017 SALOME STEVE Ot 793.11 SOLITARY PULMONARY NODULE 07/07/2017 KYLIE TAYLOR MD Ot 250. 00 DIAB OLU WO COMPL, TYPE II OR UNSPEC TY 07/07/2017 KYLIE TAYLOR MD Ot 401. 9 HYPERTENSION NOS 07/07/2017 KYLIE TAYLOR MD Ot 414. 00 CORON ATHEROSCLER NOS TYPE VESSEL, NATIV 07/07/2017 KYLIE TAYLOR MD Ot 428. 0 CONGESTIVE HEART FAILURE NOS 07/07/2017 KYLIE TAYLOR MD Ot V58. 67 LONG-TERM (CURRENT) USE OF INSULIN 07/07/2017 KAYCEE HASSAN Ot 162.9 MAL HILARIO BRONCH/LUNG NOS 07/07/2017 KAYCEE HASSANP Ot C34.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 07/07/2017 KAYCEE HASSANP Ot C32.1 MALIGNANT NEOPLASM OF SUPRAGLOTTIS 07/07/2017 KAYCEE HASSAN Ot Z12.31 ENCNTR SCREEN MAMMOGRAM FOR MALIGNANT NE 07/07/2017 KAYCEE HASSAN Ot C32.1 MALIGNANT NEOPLASM OF SUPRAGLOTTIS 07/07/2017 LILLY LEE DO Ot Z01.818 ENCOUNTER FOR OTHER PREPROCEDURAL EXAMIN 07/07/2017 SALOME STEVE Ot C32.1 MALIGNANT NEOPLASM OF SUPRAGLOTTIS 07/07/2017 LILIAN TREJO DO Ot C32. 1 MALIGNANT NEOPLASM OF SUPRAGLOTTIS 07/07/2017 LILIAN TREJO DO Ot C34. 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 NEOPLASM OF UPPER LOBE, LEFT B 07/07/2017 LILIAN TREJO DO Ot C32. 1 MALIGNANT NEOPLASM OF SUPRAGLOTTIS 07/07/2017 LILIAN TREJO DO Ot C34. 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 NEOPLASM OF UPPER LOBE, LEFT B 07/07/2017 KAYCEE HASSANP Ot C32.1 MALIGNANT NEOPLASM OF SUPRAGLOTTIS 07/07/2017 KAYCEE HASSAN VOLLEYBALL PLAYER Ot C34.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 NEOPLASM OF UPPER LOBE, LEFT B 07/07/2017 KAYCEE HASSAN VOLLEYBALL PLAYER Ot M25.552 PAIN IN LEFT HIP 07/07/2017 ANAIS ANGULO MD Ot C32.1 MALIGNANT NEOPLASM OF SUPRAGLOTTIS 07/07/2017 ANAIS ANGULO MD Ot Z09 ENCNTR FOR F/U EXAM AFT TRTMT FOR COND O 07/07/2017 ANAIS ANGULO MD Ot Z96.8 9 PRESENCE OF OTHER SPECIFIED FUNCTIONAL I 07/07/2017 SERGEI CUTLER, STEF P Ot C32 .1 MALIGNANT NEOPLASM OF SUPRAGLOTTIS 07/07/2017 ROBERTO CLANCY VOLLEYBALL PLAYER Ot Z12.31 ENCNTR SCREEN MAMMOGRAM FOR MALIGNANT NE 07/07/2017 KAYCEE HASSAN VOLLEYBALL PLAYER Ot C32.1 MALIGNANT NEOPLASM OF SUPRAGLOTTIS 07/07/2017 KAYCEE HASSAN VOLLEYBALL PLAYER Ot C34.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 NEOPLASM OF UPPER LOBE, LEFT B 07/07/2017 KAYCEE HASSAN VOLLEYBALL PLAYER Ot C32.1 MALIGNANT NEOPLASM OF SUPRAGLOTTIS 07/07/2017 KAYCEE HASSAN VOLLEYBALL PLAYER Ot C34.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 NEOPLASM OF UPPER LOBE, LEFT B 07/07/2017 SALOME STEVE Ot C32.1 MALIGNANT NEOPLASM OF SUPRAGLOTTIS 07/07/2017 SALOME STEVE Ot C34.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 NEOPLASM OF UPPER LOBE, LEFT B 07/07/2017 SALOME STEVE Ot E11.43 TYPE 2 DIABETES W DIABETIC AUTONOMIC (PO 07/07/2017 SALOME STEVE Ot E78.5 HYPERLIPIDEMIA, UNSPECIFIED 07/07/2017 SALOME STEVE Ot E83.42 HYPOMAGNESEMIA 07/07/2017 SALOME STEVE Ot F17.210 NICOTINE DEPENDENCE, CIGARETTES, UNCOMPL 07/07/2017 SALOME STEVE Ot I10 ESSENTIAL (PRIMARY) HYPERTENSION 07/07/2017 ASLOME STEVE Ot I25.10 ATHSCL HEART DISEASE OF [place] CORONARY 07/07/2017 SALOME STEVE Ot J43.9 EMPHYSEMA, UNSPECIFIED 07/07/2017 SALOME STEVE Ot Z79.899 OTHER EXPEDITER CLERK (CURRENT) DRUG THERAPY 07/07/2017 SALOME STEVE N Ot Z92.21 PERSONAL HISTORY OF ANTINEOPLASTIC CHEMO 07/07/2017 SALOME STEVE N Ot Z92.3 PERSONAL HISTORY OF IRRADIATION 07/08/2017 SALOME STEVE Miguel A Ot C32.1 MALIGNANT NEOPLASM OF SUPRAGLOTTIS 07/08/2017 SALOME STEVE Miguel A Ot C34.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 NEOPLASM OF UPPER LOBE, LEFT B 07/08/2017 SALOME STEVE Miguel A Ot E11.43 TYPE 2 DIABETES W DIABETIC AUTONOMIC (PO 07/08/2017 SALOME STEVE Miguel A Ot E78.5 HYPERLIPIDEMIA, UNSPECIFIED 07/08/2017 SALOME STEVE Miguel A Ot E83.42 HYPOMAGNESEMIA 07/08/2017 SALOME STEVE Miguel A Ot F17.210 NICOTINE DEPENDENCE, CIGARETTES, UNCOMPL 07/08/2017 SALOME STEVE Miguel A Ot I10 ESSENTIAL (PRIMARY) HYPERTENSION 07/08/2017 POWER SALOME Grady Ot I25.10 ATHSCL HEART DISEASE OF [place] CORONARY 07/08/2017 SALOME STEVE Miguel A Ot J43.9 EMPHYSEMA, UNSPECIFIED 07/08/2017 SALOME STEVE Miguel A Ot Z79.899 OTHER EXPEDITER CLERK (CURRENT) DRUG THERAPY 07/08/2017 SALOME STEVE Miguel A Ot Z92.21 PERSONAL HISTORY OF ANTINEOPLASTIC CHEMO 07/08/2017 SALOME STEVE N Ot Z92.3 PERSONAL HISTORY OF IRRADIATION 07/18/2017 HUNTER FUENTES MD Ot E11 .9 TYPE 2 DIABETES MELLITUS WITHOUT COMPLIC 07/18/2017 HUNTER FUENTES MD Ot E78 .5 HYPERLIPIDEMIA, UNSPECIFIED 07/18/2017 HUNTER FUENTES MD Ot E86 .1 HYPOVOLEMIA 07/18/2017 HUNTER FUENTES MD Ot F17.210 NICOTINE DEPENDENCE, CIGARETTES, UNCOMPL 07/18/2017 HUNTER FUENTES MD Ot I11 .0 HYPERTENSIVE HEART DISEASE WITH HEART FA 07/18/2017 HUNTER FUENTES MD Ot I25.10 ATHSCL HEART DISEASE OF [place] CORONARY 07/18/2017 HUNTER FUENTES MD Ot I48.91 UNSPECIFIED ATRIAL FIBRILLATION 07/18/2017 HUNTER FUENTES MD Ot I50.23 ACUTE ON CHRONIC SYSTOLIC (CONGESTIVE) H 07/18/2017 HUNTER FUENTES MD, Ot J11.00 FLU DUE TO UNIDENTIFIED FLU VIRUS W UNSP 07/18/2017 HUNTER FUENTES MD, Ot J18 .9 PNEUMONIA, UNSPECIFIED ORGANISM 07/18/2017 HUNTER FUENTES MD, Ot J44 .0 CHRONIC OBSTRUCTIVE PULMON DISEASE W ACU 07/18/2017 HUNTER FUENTES MD, Ot J44 .1 CHRONIC OBSTRUCTIVE PULMONARY DISEASE W 07/18/2017 HUNTER FUENTES MD, Ot J96.21 ACUTE AND CHRONIC RESPIRATORY FAILURE [place] 07/18/2017 HUNTER FUENTES MD, Ot J96.22 ACUTE AND CHRONIC RESPIRATORY FAILURE [place] 07/18/2017 HUNTER FUENTES MD, Ot K76 .0 FATTY (CHANGE OF) LIVER, NOT ELSEWHERE C 07/18/2017 HUNTER FUENTES MD, Ot N17 .9 ACUTE KIDNEY FAILURE, UNSPECIFIED 07/18/2017 HUNTER FUENTES MD, Ot R07 .9 CHEST PAIN, UNSPECIFIED 07/18/2017 HUNTER FUENTES MD, Ot R74 .0 NONSPEC ELEV OF LEVELS OF TRANSAMNS LA 07/18/2017 HUNTER FUENTES MD, Ot Z79.84 EXPEDITER CLERK (CURRENT) USE OF ORAL HYPOGLYC 07/18/2017 HUNTER FUENTES MD, Ot Z85.118 PERSONAL HISTORY OF MALIGNANT NEOPLASM O 07/18/2017 HUNTER FUENTES MD, Ot Z85.21 PERSONAL HISTORY OF MALIGNANT NEOPLASM O 07/18/2017 HUNTER FUENTES MD, Ot Z90 .2 ACQUIRED ABSENCE OF LUNG [PART OF] 07/18/2017 HUNTER FUENTES MD, Ot Z92.21 PERSONAL HISTORY OF ANTINEOPLASTIC CHEMO 07/18/2017 HUNTER FUENTES MD, Ot Z92 .3 PERSONAL HISTORY OF IRRADIATION 07/18/2017 HUNTER FUENTES MD, Ot Z95 .1 PRESENCE OF AORTOCORONARY BYPASS GRAFT 07/19/2017 HUNTER FUENTES MD, Ot E11 .9 TYPE 2 DIABETES MELLITUS WITHOUT COMPLIC 07/19/2017 HUNTER FUENTES MD, Ot E78 .5 HYPERLIPIDEMIA, UNSPECIFIED 07/19/2017 HUNTER FUENTES MD, Ot E86 .1 HYPOVOLEMIA 07/19/2017 HUNTER FUENTES MD, Ot F17.210 NICOTINE DEPENDENCE, CIGARETTES, UNCOMPL 07/19/2017 HUNTER FUENTES MD, Ot I11 .0 HYPERTENSIVE HEART DISEASE WITH HEART FA 07/19/2017 HUNTER FUENTES MD, Ot I25.10 ATHSCL HEART DISEASE OF [place] CORONARY 07/19/2017 HUNTER FUENTES MD, Ot I48.91 UNSPECIFIED ATRIAL FIBRILLATION 07/19/2017 HUNTER FUENTES MD, Ot I50.23 ACUTE ON CHRONIC SYSTOLIC (CONGESTIVE) H 07/19/2017 HUNTER FUENTES MD, Ot J11.00 FLU DUE TO UNIDENTIFIED FLU VIRUS W UNSP 07/19/2017 HUNTER FUENTES MD, Ot J18 .9 PNEUMONIA, UNSPECIFIED ORGANISM 07/19/2017 HUNTER FUENTES MD, Ot J44 .0 CHRONIC OBSTRUCTIVE PULMON DISEASE W ACU 07/19/2017 HUNTER FUENTES MD, Ot J44 .1 CHRONIC OBSTRUCTIVE PULMONARY DISEASE W 07/19/2017 HUNTER FUENTES MD, Ot J96.21 ACUTE AND CHRONIC RESPIRATORY FAILURE [place] 07/19/2017 HUNTER FUENTES MD, Ot J96.22 ACUTE AND CHRONIC RESPIRATORY FAILURE [place] 07/19/2017 HUNTER FUENTES MD, Ot K76 .0 FATTY (CHANGE OF) LIVER, NOT ELSEWHERE C 07/19/2017 HUNTER FUENTES MD, Ot N17 .9 ACUTE KIDNEY FAILURE, UNSPECIFIED 07/19/2017 HUNTER FUENTES MD, Ot R07 .9 CHEST PAIN, UNSPECIFIED 07/19/2017 HUNTER FUENTES MD, Ot R74 .0 NONSPEC ELEV OF LEVELS OF TRANSAMNS LA 07/19/2017 HUNTER FUENTES MD, Ot Z79.84 EXPEDITER CLERK (CURRENT) USE OF ORAL HYPOGLYC 07/19/2017 HUNTER FUENTES MD, Ot Z85.118 PERSONAL HISTORY OF MALIGNANT NEOPLASM O 07/19/2017 HUNTER FUENTES MD, Ot Z85.21 PERSONAL HISTORY OF MALIGNANT NEOPLASM O 07/19/2017 HUNTER FUENTES MD, Ot Z90 .2 ACQUIRED ABSENCE OF LUNG [PART OF] 07/19/2017 HUNTER FUENTES MD, Ot Z92.21 PERSONAL HISTORY OF ANTINEOPLASTIC CHEMO 07/19/2017 HUNTER FUENTES MD, Ot Z92 .3 PERSONAL HISTORY OF IRRADIATION 07/19/2017 HUNTER FUENTES MD, Ot Z95 .1 PRESENCE OF AORTOCORONARY BYPASS GRAFT 07/19/2017 HUNTER FUENTES MD, Ot E11 .9 TYPE 2 DIABETES MELLITUS WITHOUT COMPLIC 07/19/2017 HUNTER FUENTES MD, Ot E78 .5 HYPERLIPIDEMIA, UNSPECIFIED 07/19/2017 HUNTER FUENTES MD, Ot E86 .1 HYPOVOLEMIA 07/19/2017 HUNTER FUENTES MD, Ot F17.210 NICOTINE DEPENDENCE, CIGARETTES, UNCOMPL 07/19/2017 HUNTER FUENTES MD, Ot I11 .0 HYPERTENSIVE HEART DISEASE WITH HEART FA 07/19/2017 HUNTER FUENTES MD, Ot I25.10 ATHSCL HEART DISEASE OF [place] CORONARY 07/19/2017 HUNTER FUENTES MD, Ot I48.91 UNSPECIFIED ATRIAL FIBRILLATION 07/19/2017 HUNTER FUENTES MD, Ot I50.23 ACUTE ON CHRONIC SYSTOLIC (CONGESTIVE) H 07/19/2017 HUNTER FUENTES MD, Ot J11.00 FLU DUE TO UNIDENTIFIED FLU VIRUS W UNSP 07/19/2017 HUNTER FUENTES MD, Ot J18 .9 PNEUMONIA, UNSPECIFIED ORGANISM 07/19/2017 HUNTER FUENTES MD, Ot J44 .0 CHRONIC OBSTRUCTIVE PULMON DISEASE W ACU 07/19/2017 HUNTER FUENTES MD, Ot J44 .1 CHRONIC OBSTRUCTIVE PULMONARY DISEASE W 07/19/2017 HUNTER FUENTES MD, Ot J96.21 ACUTE AND CHRONIC RESPIRATORY FAILURE [place] 07/19/2017 HUNTER FUENTES MD, Ot J96.22 ACUTE AND CHRONIC RESPIRATORY FAILURE [place] 07/19/2017 HUNTER FUENTES MD, Ot K76 .0 FATTY (CHANGE OF) LIVER, NOT ELSEWHERE C 07/19/2017 HUNTER FUENTES MD, Ot N17 .9 ACUTE KIDNEY FAILURE, UNSPECIFIED 07/19/2017 HUNTER FUENTES MD, Ot R07 .9 CHEST PAIN, UNSPECIFIED 07/19/2017 HUNTER FUENTES MD, Ot R74 .0 NONSPEC ELEV OF LEVELS OF TRANSAMNS LA 07/19/2017 HUNTER FUENTES MD, Ot Z79.84 RETIREMENT (CURRENT) USE OF ORAL HYPOGLYC 07/19/2017 HUNTER FUENTES MD, Ot Z85.118 PERSONAL HISTORY OF MALIGNANT NEOPLASM O 07/19/2017 HUNTER FUENTES MD, Ot Z85.21 PERSONAL HISTORY OF MALIGNANT NEOPLASM O 07/19/2017 HUNTER FUENTES MD, Ot Z90 .2 ACQUIRED ABSENCE OF LUNG [PART OF] 07/19/2017 HUNTER FUENTES MD, Ot Z92.21 PERSONAL HISTORY OF ANTINEOPLASTIC CHEMO 07/19/2017 HUNTER FUENTES MD, Ot Z92 .3 PERSONAL HISTORY OF IRRADIATION 07/19/2017 HUNTER FUENTES MD, Ot Z95 .1 PRESENCE OF AORTOCORONARY BYPASS GRAFT 07/19/2017 HUNTER FUENTES MD, Ot E11 .9 TYPE 2 DIABETES MELLITUS WITHOUT COMPLIC 07/19/2017 HUNTER FUENTES MD, Ot E78 .5 HYPERLIPIDEMIA, UNSPECIFIED 07/19/2017 HUNTER FUENTES MD, Ot E86 .1 HYPOVOLEMIA 07/19/2017 HUNTER FUENTES MD, Ot F17.210 NICOTINE DEPENDENCE, CIGARETTES, UNCOMPL 07/19/2017 HUNTER FUENTES MD, Ot I11 .0 HYPERTENSIVE HEART DISEASE WITH HEART FA 07/19/2017 HUNTER FUENTES MD, Ot I25.10 ATHSCL HEART DISEASE OF [place] CORONARY 07/19/2017 HUNTER FUENTES MD, Ot I48.91 UNSPECIFIED ATRIAL FIBRILLATION 07/19/2017 HUNTER FUENTES MD, Ot I50.23 ACUTE ON CHRONIC SYSTOLIC (CONGESTIVE) H 07/19/2017 HUNTER FUENTES MD, Ot J11.00 FLU DUE TO UNIDENTIFIED FLU VIRUS W UNSP 07/19/2017 HUNTER FUENTES MD, Ot J18 .9 PNEUMONIA, UNSPECIFIED ORGANISM 07/19/2017 HUNTER FUENTES MD, Ot J44 .0 CHRONIC OBSTRUCTIVE PULMON DISEASE W ACU 07/19/2017 HUNTER FUENTES MD, Ot J44 .1 CHRONIC OBSTRUCTIVE PULMONARY DISEASE W 07/19/2017 HUNTER FUENTES MD, Ot J96.21 ACUTE AND CHRONIC RESPIRATORY FAILURE [place] 07/19/2017 HUNTER FUENTES MD, Ot J96.22 ACUTE AND CHRONIC RESPIRATORY FAILURE [place] 07/19/2017 HUNTER FUENTES MD, Ot K76 .0 FATTY (CHANGE OF) LIVER, NOT ELSEWHERE C 07/19/2017 HUNTER FUENTES MD, Ot N17 .9 ACUTE KIDNEY FAILURE, UNSPECIFIED 07/19/2017 HUNTER FUENTES MD, Ot R07 .9 CHEST PAIN, UNSPECIFIED 07/19/2017 HUNTER FUENTES MD, Ot R74 .0 NONSPEC ELEV OF LEVELS OF TRANSAMNS LA 07/19/2017 HUNTER FUENTES MD, Ot Z79.84 RETIREMENT (CURRENT) USE OF ORAL HYPOGLYC 07/19/2017 HUNTER FUENTES MD, Ot Z85.118 PERSONAL HISTORY OF MALIGNANT NEOPLASM O 07/19/2017 HUNTER FUENTES MD, Ot Z85.21 PERSONAL HISTORY OF MALIGNANT NEOPLASM O 07/19/2017 HUNTER FUENTES MD, Ot Z90 .2 ACQUIRED ABSENCE OF LUNG [PART OF] 07/19/2017 HUNTER FUENTES MD, Ot Z92.21 PERSONAL HISTORY OF ANTINEOPLASTIC CHEMO 07/19/2017 HUNTER FUENTES MD, Ot Z92 .3 PERSONAL HISTORY OF IRRADIATION 07/19/2017 HUNTER FUENTES MD, Ot Z95 .1 PRESENCE OF AORTOCORONARY BYPASS GRAFT 07/20/2017 HUNTER FUENTES MD, Ot E11 .9 TYPE 2 DIABETES MELLITUS WITHOUT COMPLIC 07/20/2017 HUNTER FUENTES MD, Ot E78 .5 HYPERLIPIDEMIA, UNSPECIFIED 07/20/2017 HUNTER FUENTES MD, Ot E86 .1 HYPOVOLEMIA 07/20/2017 HUNTER FUENTES MD, Ot F17.210 NICOTINE DEPENDENCE, CIGARETTES, UNCOMPL 07/20/2017 HUNTER FUENTES MD, Ot I11 .0 HYPERTENSIVE HEART DISEASE WITH HEART FA 07/20/2017 HUNTER FUENTES MD, Ot I25.10 ATHSCL HEART DISEASE OF [place] CORONARY 07/20/2017 HUNTER FUENTES MD, Ot I48.91 UNSPECIFIED ATRIAL FIBRILLATION 07/20/2017 HUNTER FUENTES MD, Ot I50.23 ACUTE ON CHRONIC SYSTOLIC (CONGESTIVE) H 07/20/2017 HUNTER FUENTES MD, Ot J11.00 FLU DUE TO UNIDENTIFIED FLU VIRUS W UNSP 07/20/2017 HUNTER FUENTES MD, Ot J18 .9 PNEUMONIA, UNSPECIFIED ORGANISM 07/20/2017 HUNTER FUENTES MD, Ot J44 .0 CHRONIC OBSTRUCTIVE PULMON DISEASE W ACU 07/20/2017 HUNTER FUENTES MD, Ot J44 .1 CHRONIC OBSTRUCTIVE PULMONARY DISEASE W 07/20/2017 HUNTER FUENTES MD, Ot J96.21 ACUTE AND CHRONIC RESPIRATORY FAILURE [place] 07/20/2017 HUNTER FUENTES MD, Ot J96.22 ACUTE AND CHRONIC RESPIRATORY FAILURE [place] 07/20/2017 HUNTER FUENTES MD, Ot K76 .0 FATTY (CHANGE OF) LIVER, NOT ELSEWHERE C 07/20/2017 HUNTER FUENTES MD, Ot N17 .9 ACUTE KIDNEY FAILURE, UNSPECIFIED 07/20/2017 HUNTER FUENTES MD, Ot R07 .9 CHEST PAIN, UNSPECIFIED 07/20/2017 HUNTER FUENTES MD, Ot R74 .0 NONSPEC ELEV OF LEVELS OF TRANSAMNS LA 07/20/2017 HUNTER FUENTES MD, Ot Z79.84 EXPEDITER CLERK (CURRENT) USE OF ORAL HYPOGLYC 07/20/2017 HUNTER FUENTES MD, Ot Z85.118 PERSONAL HISTORY OF MALIGNANT NEOPLASM O 07/20/2017 HUNTER FUENTES MD, Ot Z85.21 PERSONAL HISTORY OF MALIGNANT NEOPLASM O 07/20/2017 HUNTER FUENTES MD, Ot Z90 .2 ACQUIRED ABSENCE OF LUNG [PART OF] 07/20/2017 HUNTER FUENTES MD, Ot Z92.21 PERSONAL HISTORY OF ANTINEOPLASTIC CHEMO 07/20/2017 HUNTER FUENTES MD, Ot Z92 .3 PERSONAL HISTORY OF IRRADIATION 07/20/2017 HUNTER FUENTES MD, Ot Z95 .1 PRESENCE OF AORTOCORONARY BYPASS GRAFT 07/21/2017 HUNTER FUENTES MD, Ot E11 .9 TYPE 2 DIABETES MELLITUS WITHOUT COMPLIC 07/21/2017 HUNTER FUENTES MD, Ot E78 .5 HYPERLIPIDEMIA, UNSPECIFIED 07/21/2017 HUNTER FUENTES MD, Ot E86 .1 HYPOVOLEMIA 07/21/2017 HUNTER FUENTES MD, Ot F17.210 NICOTINE DEPENDENCE, CIGARETTES, UNCOMPL 07/21/2017 HUNTER FUENTES MD, Ot I11 .0 HYPERTENSIVE HEART DISEASE WITH HEART FA 07/21/2017 HUNTER FUENTES MD, Ot I25.10 ATHSCL HEART DISEASE OF [place] CORONARY 07/21/2017 HUNTER FUENTES MD, Ot I48.91 UNSPECIFIED ATRIAL FIBRILLATION 07/21/2017 HUNTER FUENTES MD, Ot I50.23 ACUTE ON CHRONIC SYSTOLIC (CONGESTIVE) H 07/21/2017 HUNTER FUENTES MD, Ot J11.00 FLU DUE TO UNIDENTIFIED FLU VIRUS W UNSP 07/21/2017 HUNTER FUENTES MD, Ot J18 .9 PNEUMONIA, UNSPECIFIED ORGANISM 07/21/2017 HUNTER FUENTES MD, Ot J44 .0 CHRONIC OBSTRUCTIVE PULMON DISEASE W ACU 07/21/2017 HUNTER FUENTES MD, Ot J44 .1 CHRONIC OBSTRUCTIVE PULMONARY DISEASE W 07/21/2017 HUNTER FUENTES MD, Ot J96.21 ACUTE AND CHRONIC RESPIRATORY FAILURE [place] 07/21/2017 HUNTER FUENTES MD, Ot J96.22 ACUTE AND CHRONIC RESPIRATORY FAILURE [place] 07/21/2017 HUNTER FUENTES MD, Ot K76 .0 FATTY (CHANGE OF) LIVER, NOT ELSEWHERE C 07/21/2017 HUNTER FUENTES MD, Ot N17 .9 ACUTE KIDNEY FAILURE, UNSPECIFIED 07/21/2017 HUNTER FUENTES MD, Ot R07 .9 CHEST PAIN, UNSPECIFIED 07/21/2017 HUNTER FUENTES MD, Ot R74 .0 NONSPEC ELEV OF LEVELS OF TRANSAMNS LA 07/21/2017 HUNTER FUENTES MD, Ot Z79.84 EXPEDITER CLERK (CURRENT) USE OF ORAL HYPOGLYC 07/21/2017 HUNTER FUENTES MD, Ot Z85.118 PERSONAL HISTORY OF MALIGNANT NEOPLASM O 07/21/2017 HUNTER FUENTES MD, Ot Z85.21 PERSONAL HISTORY OF MALIGNANT NEOPLASM O 07/21/2017 HUNTER FUENTES MD, Ot Z90 .2 ACQUIRED ABSENCE OF LUNG [PART OF] 07/21/2017 HUNTER FUENTES MD, Ot Z92.21 PERSONAL HISTORY OF ANTINEOPLASTIC CHEMO 07/21/2017 HUNTER FUENTES MD, Ot Z92 .3 PERSONAL HISTORY OF IRRADIATION 07/21/2017 HUNTER FUENTES MD, Ot Z95 .1 PRESENCE OF AORTOCORONARY BYPASS GRAFT 07/22/2017 HUNTER FUENTES MD, Ot E11 .9 TYPE 2 DIABETES MELLITUS WITHOUT COMPLIC 07/22/2017 HUNTER FUENTES MD, Ot E78 .5 HYPERLIPIDEMIA, UNSPECIFIED 07/22/2017 HUNTER FUENTES MD, Ot E86 .1 HYPOVOLEMIA 07/22/2017 HUNTER FUENTES MD, Ot F17.210 NICOTINE DEPENDENCE, CIGARETTES, UNCOMPL 07/22/2017 HUNTER FUENTES MD, Ot I11 .0 HYPERTENSIVE HEART DISEASE WITH HEART FA 07/22/2017 HUNTER FUENTES MD, Ot I25.10 ATHSCL HEART DISEASE OF [place] CORONARY 07/22/2017 HUNTER FUENTES MD, Ot I48.91 UNSPECIFIED ATRIAL FIBRILLATION 07/22/2017 HUNTER FUENTES MD, Ot I50.23 ACUTE ON CHRONIC SYSTOLIC (CONGESTIVE) H 07/22/2017 HUNTER FUENTES MD, Ot J11.00 FLU DUE TO UNIDENTIFIED FLU VIRUS W UNSP 07/22/2017 HUNTER FUENTES MD, Ot J18 .9 PNEUMONIA, UNSPECIFIED ORGANISM 07/22/2017 HUNTER FUENTES MD, Ot J44 .0 CHRONIC OBSTRUCTIVE PULMON DISEASE W ACU 07/22/2017 HUNTER FUENTES MD, Ot J44 .1 CHRONIC OBSTRUCTIVE PULMONARY DISEASE W 07/22/2017 HUNTER FUENTES MD, Ot J96.21 ACUTE AND CHRONIC RESPIRATORY FAILURE [place] 07/22/2017 HUNTER FUENTES MD, Ot J96.22 ACUTE AND CHRONIC RESPIRATORY FAILURE [place] 07/22/2017 HUNTER FUENTES MD, Ot K76 .0 FATTY (CHANGE OF) LIVER, NOT ELSEWHERE C 07/22/2017 HUNTER FUENTES MD, Ot N17 .9 ACUTE KIDNEY FAILURE, UNSPECIFIED 07/22/2017 HUNTER FUENTES MD, Ot R07 .9 CHEST PAIN, UNSPECIFIED 07/22/2017 HUNTER FUENTES MD, Ot R74 .0 NONSPEC ELEV OF LEVELS OF TRANSAMNS LA 07/22/2017 HUNTER FUENTES MD, Ot Z79.84 RETIREMENT (CURRENT) USE OF ORAL HYPOGLYC 07/22/2017 HUNTER FUENTES MD, Ot Z85.118 PERSONAL HISTORY OF MALIGNANT NEOPLASM O 07/22/2017 HUNTER FUENTES MD, Ot Z85.21 PERSONAL HISTORY OF MALIGNANT NEOPLASM O 07/22/2017 HUNTER FUENTES MD, Ot Z90 .2 ACQUIRED ABSENCE OF LUNG [PART OF] 07/22/2017 HUNTER FUENTES MD, Ot Z92.21 PERSONAL HISTORY OF ANTINEOPLASTIC CHEMO 07/22/2017 HUNTER FUENTES MD, Ot Z92 .3 PERSONAL HISTORY OF IRRADIATION 07/22/2017 HUNTER FUENTES MD, Ot Z95 .1 PRESENCE OF AORTOCORONARY BYPASS GRAFT 07/23/2017 HUNTER FUENTES MD, Ot E11 .9 TYPE 2 DIABETES MELLITUS WITHOUT COMPLIC 07/23/2017 HUNTER FUENTES MD, Ot E78 .5 HYPERLIPIDEMIA, UNSPECIFIED 07/23/2017 HUNTER FUENTES MD, Ot E86 .1 HYPOVOLEMIA 07/23/2017 HUNTER FUENTES MD, Ot F17.210 NICOTINE DEPENDENCE, CIGARETTES, UNCOMPL 07/23/2017 HUNTER FUENTES MD, Ot F41 .9 ANXIETY DISORDER, UNSPECIFIED 07/23/2017 HUNTER FUENTES MD, Ot I11 .0 HYPERTENSIVE HEART DISEASE WITH HEART FA 07/23/2017 HUNTER FUENTES MD, Ot I25.10 ATHSCL HEART DISEASE OF [place] CORONARY 07/23/2017 HUNTER FUENTES MD, Ot I48 .0 PAROXYSMAL ATRIAL FIBRILLATION 07/23/2017 HUNTER FUENTES MD, Ot I50.23 ACUTE ON CHRONIC SYSTOLIC (CONGESTIVE) H 07/23/2017 HUNTER FUENTES MD, Ot I95 .9 HYPOTENSION, UNSPECIFIED 07/23/2017 HUNTER FUENTES MD, Ot J11.00 FLU DUE TO UNIDENTIFIED FLU VIRUS W UNSP 07/23/2017 HUNTER FUENTES MD, Ot J18 .9 PNEUMONIA, UNSPECIFIED ORGANISM 07/23/2017 HUNTER FUENTES MD, Ot J44 .0 CHRONIC OBSTRUCTIVE PULMON DISEASE W ACU 07/23/2017 HUNTER FUENTES MD, Ot J44 .1 CHRONIC OBSTRUCTIVE PULMONARY DISEASE W 07/23/2017 HUNTER FUENTES MD, Ot J96.21 ACUTE AND CHRONIC RESPIRATORY FAILURE [place] 07/23/2017 HUNTER FUENTES MD, Ot J96.22 ACUTE AND CHRONIC RESPIRATORY FAILURE [place] 07/23/2017 HUNTER FUENTES MD, Ot K59.00 CONSTIPATION, UNSPECIFIED 07/23/2017 HUNTER FUENTES MD, Ot K76 .0 FATTY (CHANGE OF) LIVER, NOT ELSEWHERE C 07/23/2017 HUNTER FUENTES MD, Ot N17 .9 ACUTE KIDNEY FAILURE, UNSPECIFIED 07/23/2017 HUNTER FUENTES MD, Ot R07 .9 CHEST PAIN, UNSPECIFIED 07/23/2017 HUNTER FUENTES MD, Ot R74 .0 NONSPEC ELEV OF LEVELS OF TRANSAMNS LA 07/23/2017 HUNTER FUENTES MD, Ot Z79.84 RETIREMENT (CURRENT) USE OF ORAL HYPOGLYC 07/23/2017 HUNTER FUENTES MD, Ot Z85.118 PERSONAL HISTORY OF MALIGNANT NEOPLASM O 07/23/2017 HUNTER FUENTES MD, Ot Z85.21 PERSONAL HISTORY OF MALIGNANT NEOPLASM O 07/23/2017 HUNTER FUENTES MD, Ot Z90 .2 ACQUIRED ABSENCE OF LUNG [PART OF] 07/23/2017 HUNTER FUENTES MD, Ot Z92.21 PERSONAL HISTORY OF ANTINEOPLASTIC CHEMO 07/23/2017 HUNTER FUENTES MD, Ot Z92 .3 PERSONAL HISTORY OF IRRADIATION 07/23/2017 HUNTER FUENTES MD, Ot Z95 .1 PRESENCE OF AORTOCORONARY BYPASS GRAFT 07/23/2017 HUNTER FUENTES MD, Ot E11 .9 TYPE 2 DIABETES MELLITUS WITHOUT COMPLIC 07/23/2017 HUNTER FUENTES MD, Ot E78 .5 HYPERLIPIDEMIA, UNSPECIFIED 07/23/2017 HUNTER FUENTES MD, Ot E86 .1 HYPOVOLEMIA 07/23/2017 HUNTER FUENTES MD, Ot F17.210 NICOTINE DEPENDENCE, CIGARETTES, UNCOMPL 07/23/2017 HUNTER FUENTES MD, Ot F41 .9 ANXIETY DISORDER, UNSPECIFIED 07/23/2017 HUNTER FUENTES MD, Ot I11 .0 HYPERTENSIVE HEART DISEASE WITH HEART FA 07/23/2017 HUNTER FUENTES MD, Ot I25.10 ATHSCL HEART DISEASE OF [place] CORONARY 07/23/2017 HUNTER FUENTES MD, Ot I48 .0 PAROXYSMAL ATRIAL FIBRILLATION 07/23/2017 HUNTER FUENTES MD, Ot I50.23 ACUTE ON CHRONIC SYSTOLIC (CONGESTIVE) H 07/23/2017 HUNTER FUENTES MD, Ot I95 .9 HYPOTENSION, UNSPECIFIED 07/23/2017 HUNTER FUENTES MD, Ot J11.00 FLU DUE TO UNIDENTIFIED FLU VIRUS W UNSP 07/23/2017 HUNTER FUENTES MD, Ot J18 .9 PNEUMONIA, UNSPECIFIED ORGANISM 07/23/2017 HUNTER FUENTES MD, Ot J44 .0 CHRONIC OBSTRUCTIVE PULMON DISEASE W ACU 07/23/2017 HUNTER FUENTES MD, Ot J44 .1 CHRONIC OBSTRUCTIVE PULMONARY DISEASE W 07/23/2017 HUNTER FUENTES MD, Ot J96.21 ACUTE AND CHRONIC RESPIRATORY FAILURE [place] 07/23/2017 HUNTER FUENTES MD, Ot J96.22 ACUTE AND CHRONIC RESPIRATORY FAILURE [place] 07/23/2017 HUNTER FUENTES MD, Ot K59.00 CONSTIPATION, UNSPECIFIED 07/23/2017 HUNTER FUENTES MD, Ot K76 .0 FATTY (CHANGE OF) LIVER, NOT ELSEWHERE C 07/23/2017 HUNTER FUENTES MD, Ot N17 .9 ACUTE KIDNEY FAILURE, UNSPECIFIED 07/23/2017 HUNTER FUENTES MD, Ot R07 .9 CHEST PAIN, UNSPECIFIED 07/23/2017 HUNTER FUENTES MD, Ot R74 .0 NONSPEC ELEV OF LEVELS OF TRANSAMNS LA 07/23/2017 HUNTER FUENTES MD, Ot Z79.84 RETIREMENT (CURRENT) USE OF ORAL HYPOGLYC 07/23/2017 HUNTER FUENTES MD, Ot Z85.118 PERSONAL HISTORY OF MALIGNANT NEOPLASM O 07/23/2017 HUNTER FUENTES MD, Ot Z85.21 PERSONAL HISTORY OF MALIGNANT NEOPLASM O 07/23/2017 HUNTER FUENTES MD, Ot Z90 .2 ACQUIRED ABSENCE OF LUNG [PART OF] 07/23/2017 HUNTER FUENTES MD, Ot Z92.21 PERSONAL HISTORY OF ANTINEOPLASTIC CHEMO 07/23/2017 HUNTER FUENTES MD, Ot Z92 .3 PERSONAL HISTORY OF IRRADIATION 07/23/2017 HUNTER FUENTES MD, Ot Z95 .1 PRESENCE OF AORTOCORONARY BYPASS GRAFT 07/24/2017 HUNTER FUENTES MD, Ot E11 .9 TYPE 2 DIABETES MELLITUS WITHOUT COMPLIC 07/24/2017 HUNTER FUENTES MD, Ot E78 .5 HYPERLIPIDEMIA, UNSPECIFIED 07/24/2017 HUNTER FUENTES MD, Ot E86 .1 HYPOVOLEMIA 07/24/2017 HUNTER FUENTES MD, Ot F17.210 NICOTINE DEPENDENCE, CIGARETTES, UNCOMPL 07/24/2017 HUNTER FUENTES MD, Ot F41 .9 ANXIETY DISORDER, UNSPECIFIED 07/24/2017 HUNTER FUENTES MD, Ot I11 .0 HYPERTENSIVE HEART DISEASE WITH HEART FA 07/24/2017 HUNTER FUENTES MD, Ot I25.10 ATHSCL HEART DISEASE OF [place] CORONARY 07/24/2017 HUNTER FUENTES MD, Ot I48 .0 PAROXYSMAL ATRIAL FIBRILLATION 07/24/2017 HUNTER FUENTES MD, Ot I50.23 ACUTE ON CHRONIC SYSTOLIC (CONGESTIVE) H 07/24/2017 HUNTER FUENTES MD, Ot I95 .9 HYPOTENSION, UNSPECIFIED 07/24/2017 HUNTER FUENTES MD, Ot J11.00 FLU DUE TO UNIDENTIFIED FLU VIRUS W UNSP 07/24/2017 HUNTER FUENTES MD, Ot J18 .9 PNEUMONIA, UNSPECIFIED ORGANISM 07/24/2017 HUNTER FUENTES MD, Ot J44 .0 CHRONIC OBSTRUCTIVE PULMON DISEASE W ACU 07/24/2017 HUNTER FUENTES MD, Ot J44 .1 CHRONIC OBSTRUCTIVE PULMONARY DISEASE W 07/24/2017 HUNTER FUENTES MD, Ot J96.21 ACUTE AND CHRONIC RESPIRATORY FAILURE [place] 07/24/2017 HUNTER FUENTES MD, Ot J96.22 ACUTE AND CHRONIC RESPIRATORY FAILURE [place] 07/24/2017 HUNTER FUENTES MD, Ot K59.00 CONSTIPATION, UNSPECIFIED 07/24/2017 HUNTER FUENTES MD Ot K76 .0 FATTY (CHANGE OF) LIVER, NOT ELSEWHERE C 07/24/2017 HUNTER FUENTES MD, Ot N17 .9 ACUTE KIDNEY FAILURE, UNSPECIFIED 07/24/2017 HUNTER FUENTES MD Ot R07 .9 CHEST PAIN, UNSPECIFIED 07/24/2017 HUNTER FUENTES MD Ot R74 .0 NONSPEC ELEV OF LEVELS OF TRANSAMNS LA 07/24/2017 HUNTER FUENTES MD, Ot Z79.84 RETIREMENT (CURRENT) USE OF ORAL HYPOGLYC 07/24/2017 HUNTER FUENTES MD, Ot Z85.118 PERSONAL HISTORY OF MALIGNANT NEOPLASM O 07/24/2017 HUNTER FUENTES MD, Ot Z85.21 PERSONAL HISTORY OF MALIGNANT NEOPLASM O 07/24/2017 HUNTER FUENTES MD, Ot Z90 .2 ACQUIRED ABSENCE OF LUNG [PART OF] 07/24/2017 HUNTER FUENTES MD, Ot Z92.21 PERSONAL HISTORY OF ANTINEOPLASTIC CHEMO 07/24/2017 HUNTER FUENTES MD, Ot Z92 .3 PERSONAL HISTORY OF IRRADIATION 07/24/2017 HUNTER FUENTES MD, Ot Z95 .1 PRESENCE OF AORTOCORONARY BYPASS GRAFT 07/24/2017 HUNTER FUENTES MD, Ot B37 .1 PULMONARY CANDIDIASIS 07/24/2017 HUNTER FUENTES MD, Ot E11 .9 TYPE 2 DIABETES MELLITUS WITHOUT COMPLIC 07/24/2017 HUNTER FUENTES MD, Ot E78 .5 HYPERLIPIDEMIA, UNSPECIFIED 07/24/2017 HUNTER FUENTES MD, Ot E86 .1 HYPOVOLEMIA 07/24/2017 HUNTER FUENTES MD Ot F17.210 NICOTINE DEPENDENCE, CIGARETTES, UNCOMPL 07/24/2017 HUNTER FUENTES MD, Ot F41 .9 ANXIETY DISORDER, UNSPECIFIED 07/24/2017 HUNTER FUENTES MD, Ot I11 .0 HYPERTENSIVE HEART DISEASE WITH HEART FA 07/24/2017 HUNTER FUENTES MD, Ot I25.10 ATHSCL HEART DISEASE OF [place] CORONARY 07/24/2017 HUNTER FUENTES MD, Ot I48 .0 PAROXYSMAL ATRIAL FIBRILLATION 07/24/2017 HUNTER FUENTES MD Ot I48.92 UNSPECIFIED ATRIAL FLUTTER 07/24/2017 HUNTER FUENTES MD Ot I50.23 ACUTE ON CHRONIC SYSTOLIC (CONGESTIVE) H 07/24/2017 HUNTER FUENTES MD, Ot I95 .9 HYPOTENSION, UNSPECIFIED 07/24/2017 HUNTER FUENTES MD, Ot J11.00 FLU DUE TO UNIDENTIFIED FLU VIRUS W UNSP 07/24/2017 HUNTER FUENTES MD, Ot J11.08 FLU DUE TO UNIDENTIFIED FLU VIRUS W SPEC 07/24/2017 HUNTER FUENTES MD, Ot J13 PNEUMONIA DUE TO STREPTOCOCCUS PNEUMONIA 07/24/2017 HUNTER FUENTES MD, Ot J18 .9 PNEUMONIA, UNSPECIFIED ORGANISM 07/24/2017 HUNTER FUENTES MD, Ot J44 .0 CHRONIC OBSTRUCTIVE PULMON DISEASE W ACU 07/24/2017 HUNTER FUENTES MD, Ot J44 .1 CHRONIC OBSTRUCTIVE PULMONARY DISEASE W 07/24/2017 HUNTER FUENTES MD, Ot J96.21 ACUTE AND CHRONIC RESPIRATORY FAILURE [place] 07/24/2017 HUNTER FUENTES MD, Ot J96.22 ACUTE AND CHRONIC RESPIRATORY FAILURE [place] 07/24/2017 HUNTER FUENTES MD, Ot K59.00 CONSTIPATION, UNSPECIFIED 07/24/2017 HUNTER FUENTES MD, Ot K76 .0 FATTY (CHANGE OF) LIVER, NOT ELSEWHERE C 07/24/2017 HUNTER FUENTES MD, Ot N17 .9 ACUTE KIDNEY FAILURE, UNSPECIFIED 07/24/2017 HUNTER FUENTES MD, Ot R07 .9 CHEST PAIN, UNSPECIFIED 07/24/2017 HUNTER FUENTES MD, Ot R74 .0 NONSPEC ELEV OF LEVELS OF TRANSAMNS LA 07/24/2017 HUNTER FUENTES MD, Ot Z79.84 EXPEDITER CLERK (CURRENT) USE OF ORAL HYPOGLYC 07/24/2017 HUNTER FUENTES MD, Ot Z85.118 PERSONAL HISTORY OF MALIGNANT NEOPLASM O 07/24/2017 HUNTER FUENTES MD, Ot Z85.21 PERSONAL HISTORY OF MALIGNANT NEOPLASM O 07/24/2017 HUNTER FUENTES MD, Ot Z90 .2 ACQUIRED ABSENCE OF LUNG [PART OF] 07/24/2017 HUNTER FUENTES MD, Ot Z92.21 PERSONAL HISTORY OF ANTINEOPLASTIC CHEMO 07/24/2017 HUNTER FUENTES MD, Ot Z92 .3 PERSONAL HISTORY OF IRRADIATION 07/24/2017 HUNTER FUENTES MD, Ot Z95 .1 PRESENCE OF AORTOCORONARY BYPASS GRAFT 07/25/2017 HUNTER FUENTES MD, Ot E11 .9 TYPE 2 DIABETES MELLITUS WITHOUT COMPLIC 07/25/2017 HUNTER FUENTES MD, Ot E78 .5 HYPERLIPIDEMIA, UNSPECIFIED 07/25/2017 HUNTER FUENTES MD, Ot E86 .1 HYPOVOLEMIA 07/25/2017 HUNTER FUENTES MD, Ot F17.210 NICOTINE DEPENDENCE, CIGARETTES, UNCOMPL 07/25/2017 HUNTER FUENTES MD, Ot F41 .9 ANXIETY DISORDER, UNSPECIFIED 07/25/2017 HUNTER FUENTES MD, Ot I11 .0 HYPERTENSIVE HEART DISEASE WITH HEART FA 07/25/2017 HUNTER FUENTES MD, Ot I25.10 ATHSCL HEART DISEASE OF [place] CORONARY 07/25/2017 HUNTER FUENTES MD, Ot I48 .0 PAROXYSMAL ATRIAL FIBRILLATION 07/25/2017 HUNTER FUENTES MD, Ot I48.92 UNSPECIFIED ATRIAL FLUTTER 07/25/2017 HUNTER FUENTES MD, Ot I50.23 ACUTE ON CHRONIC SYSTOLIC (CONGESTIVE) H 07/25/2017 HUNTER FUENTES MD, Ot I95 .9 HYPOTENSION, UNSPECIFIED 07/25/2017 HUNTER FUENTES MD, Ot J11.00 FLU DUE TO UNIDENTIFIED FLU VIRUS W UNSP 07/25/2017 HUNTER FUENTES MD, Ot J18 .9 PNEUMONIA, UNSPECIFIED ORGANISM 07/25/2017 HUNTER FUENTES MD, Ot J44 .0 CHRONIC OBSTRUCTIVE PULMON DISEASE W ACU 07/25/2017 HUNTER FUENTES MD, Ot J44 .1 CHRONIC OBSTRUCTIVE PULMONARY DISEASE W 07/25/2017 HUNTER FUENTES MD, Ot J96.21 ACUTE AND CHRONIC RESPIRATORY FAILURE [place] 07/25/2017 HUNTER FUENTES MD, Ot J96.22 ACUTE AND CHRONIC RESPIRATORY FAILURE [place] 07/25/2017 HUNTER FUENTES MD, Ot K59.00 CONSTIPATION, UNSPECIFIED 07/25/2017 HUNTER FUENTES MD, Ot K76 .0 FATTY (CHANGE OF) LIVER, NOT ELSEWHERE C 07/25/2017 HUNTER FUENTES MD, Ot N17 .9 ACUTE KIDNEY FAILURE, UNSPECIFIED 07/25/2017 HUNTER FUENTES MD, Ot R07 .9 CHEST PAIN, UNSPECIFIED 07/25/2017 HUNTER FUENTES MD, Ot R74 .0 NONSPEC ELEV OF LEVELS OF TRANSAMNS LA 07/25/2017 HUNTER FUENTES MD, Ot Z79.84 EXPEDITER CLERK (CURRENT) USE OF ORAL HYPOGLYC 07/25/2017 HUNTER FUENTES MD, Ot Z85.118 PERSONAL HISTORY OF MALIGNANT NEOPLASM O 07/25/2017 HUNTER FUENTES MD, Ot Z85.21 PERSONAL HISTORY OF [place]NT NEOPLASM O 07/25/2017 HUNTER FUENTES MD, Ot Z90 .2 ACQUIRED ABSENCE OF LUNG [PART OF] 07/25/2017 HUNTER FUENTES MD, Ot Z92.21 PERSONAL HISTORY OF ANTINEOPLASTIC CHEMO 07/25/2017 HUNTER FUENTES MD, Ot Z92 .3 PERSONAL HISTORY OF IRRADIATION 07/25/2017 HUNTER FUENTES MD, Ot Z95 .1 PRESENCE OF AORTOCORONARY BYPASS GRAFT 07/25/2017 HUNTER FUENTES MD, Ot E11 .9 TYPE 2 DIABETES MELLITUS WITHOUT COMPLIC 07/25/2017 HUNTER FUENTES MD, Ot E78 .5 HYPERLIPIDEMIA, UNSPECIFIED 07/25/2017 HUNTER FUENTES MD, Ot E86 .1 HYPOVOLEMIA 07/25/2017 HUNTER FUENTES MD, Ot F17.210 NICOTINE DEPENDENCE, CIGARETTES, UNCOMPL 07/25/2017 HUNTER FUENTES MD, Ot F41 .9 ANXIETY DISORDER, UNSPECIFIED 07/25/2017 HUNTER FUENTES MD, Ot I11 .0 HYPERTENSIVE HEART DISEASE WITH HEART FA 07/25/2017 HUNTER FUENTES MD, Ot I25.10 ATHSCL HEART DISEASE OF [place] CORONARY 07/25/2017 HUNTER FUENTES MD, Ot I48 .0 PAROXYSMAL ATRIAL FIBRILLATION 07/25/2017 HUNTER FUENTES MD, Ot I48.92 UNSPECIFIED ATRIAL FLUTTER 07/25/2017 HUNTER FUENTES MD, Ot I50.23 ACUTE ON CHRONIC SYSTOLIC (CONGESTIVE) H 07/25/2017 HUNTER FUENTES MD, Ot I95 .9 HYPOTENSION, UNSPECIFIED 07/25/2017 HUNTER FUENTES MD, Ot J11.00 FLU DUE TO UNIDENTIFIED FLU VIRUS W UNSP 07/25/2017 HUNTER FUENTES MD, Ot J18 .9 PNEUMONIA, UNSPECIFIED ORGANISM 07/25/2017 HUNTER FUENTES MD, Ot J44 .0 CHRONIC OBSTRUCTIVE PULMON DISEASE W ACU 07/25/2017 HUNTER FUENTES MD, Ot J44 .1 CHRONIC OBSTRUCTIVE PULMONARY DISEASE W 07/25/2017 HUNTER FUENTES MD, Ot J96.21 ACUTE AND CHRONIC RESPIRATORY FAILURE [place] 07/25/2017 HUNTER FUENTES MD, Ot J96.22 ACUTE AND CHRONIC RESPIRATORY FAILURE [place] 07/25/2017 HUNTER FUENTES MD, Ot K59.00 CONSTIPATION, UNSPECIFIED 07/25/2017 HUNTER FUENTES MD, Ot K76 .0 FATTY (CHANGE OF) LIVER, NOT ELSEWHERE C 07/25/2017 HUNTER FUENTES MD, Ot N17 .9 ACUTE KIDNEY FAILURE, UNSPECIFIED 07/25/2017 HUNTER FUENTES MD, Ot R07 .9 CHEST PAIN, UNSPECIFIED 07/25/2017 HUNTER FUENTES MD, Ot R74 .0 NONSPEC ELEV OF LEVELS OF TRANSAMNS LA 07/25/2017 HUNTER FUENTES MD, Ot Z79.84 EXPEDITER CLERK (CURRENT) USE OF ORAL HYPOGLYC 07/25/2017 HUNTER FUENTES MD, Ot Z85.118 PERSONAL HISTORY OF MALIGNANT NEOPLASM O 07/25/2017 HUNTER FUENTES MD, Ot Z85.21 PERSONAL HISTORY OF MALIGNANT NEOPLASM O 07/25/2017 HUNTER FUENTES MD, Ot Z90 .2 ACQUIRED ABSENCE OF LUNG [PART OF] 07/25/2017 HUNTER FUENTES MD, Ot Z92.21 PERSONAL HISTORY OF ANTINEOPLASTIC CHEMO 07/25/2017 HUNTER FUENTES MD, Ot Z92 .3 PERSONAL HISTORY OF IRRADIATION 07/25/2017 HUNTER FUENTES MD, Ot Z95 .1 PRESENCE OF AORTOCORONARY BYPASS GRAFT 07/25/2017 HUNTER FUENTES MD, Ot E11 .9 TYPE 2 DIABETES MELLITUS WITHOUT COMPLIC 07/25/2017 HUNTER FUENTES MD, Ot E78 .5 HYPERLIPIDEMIA, UNSPECIFIED 07/25/2017 HUNTER FUENTES MD, Ot E86 .1 HYPOVOLEMIA 07/25/2017 HUNTER FUENTES MD, Ot F17.210 NICOTINE DEPENDENCE, CIGARETTES, UNCOMPL 07/25/2017 HUNTER FUENTES MD, Ot F41 .9 ANXIETY DISORDER, UNSPECIFIED 07/25/2017 HUNTER FUENTES MD, Ot I11 .0 HYPERTENSIVE HEART DISEASE WITH HEART FA 07/25/2017 HUNTER FUENTES MD, Ot I25.10 ATHSCL HEART DISEASE OF [place] CORONARY 07/25/2017 HUNTER FUENTES MD, Ot I48 .0 PAROXYSMAL ATRIAL FIBRILLATION 07/25/2017 HUNTER FUENTES MD, Ot I48.92 UNSPECIFIED ATRIAL FLUTTER 07/25/2017 HUNTER FUENTES MD, Ot I50.23 ACUTE ON CHRONIC SYSTOLIC (CONGESTIVE) H 07/25/2017 HUNTER FUENTES MD, Ot I95 .9 HYPOTENSION, UNSPECIFIED 07/25/2017 HUNTER FUENTES MD, Ot J11.00 FLU DUE TO UNIDENTIFIED FLU VIRUS W UNSP 07/25/2017 HUNTER FUENTES MD, Ot J18 .9 PNEUMONIA, UNSPECIFIED ORGANISM 07/25/2017 HUNTER FUENTES MD, Ot J44 .0 CHRONIC OBSTRUCTIVE PULMON DISEASE W ACU 07/25/2017 HUNTER FUENTES MD, Ot J44 .1 CHRONIC OBSTRUCTIVE PULMONARY DISEASE W 07/25/2017 HUNTER FUENTES MD, Ot J96.21 ACUTE AND CHRONIC RESPIRATORY FAILURE [place] 07/25/2017 HUNTER FUENTES MD, Ot J96.22 ACUTE AND CHRONIC RESPIRATORY FAILURE [place] 07/25/2017 HUNTER FUENTES MD, Ot K59.00 CONSTIPATION, UNSPECIFIED 07/25/2017 HUNTER FUENTES MD, Ot K76 .0 FATTY (CHANGE OF) LIVER, NOT ELSEWHERE C 07/25/2017 HUNTER FUENTES MD, Ot N17 .9 ACUTE KIDNEY FAILURE, UNSPECIFIED 07/25/2017 HUNTER FUENTES MD, Ot R07 .9 CHEST PAIN, UNSPECIFIED 07/25/2017 HUNTER FUENTES MD, Ot R74 .0 NONSPEC ELEV OF LEVELS OF TRANSAMNS LA 07/25/2017 HUNTER FUENTES MD, Ot Z79.84 EXPEDITER CLERK (CURRENT) USE OF ORAL HYPOGLYC 07/25/2017 HUNTER FUENTES MD, Ot Z85.118 PERSONAL HISTORY OF MALIGNANT NEOPLASM O 07/25/2017 HUNTER FUENTES MD, Ot Z85.21 PERSONAL HISTORY OF MALIGNANT NEOPLASM O 07/25/2017 HUNTER FUENTES MD, Ot Z90 .2 ACQUIRED ABSENCE OF LUNG [PART OF] 07/25/2017 HUNTER FUENTES MD, Ot Z92.21 PERSONAL HISTORY OF ANTINEOPLASTIC CHEMO 07/25/2017 ALFREDO MD, HUNTER N Ot Z92 .3 PERSONAL HISTORY OF IRRADIATION 07/25/2017 HUNTER FUENTES MD, Ot Z95 .1 PRESENCE OF AORTOCORONARY BYPASS GRAFT 07/25/2017 HUNTER FUENTES MD, Ot E11 .9 TYPE 2 DIABETES MELLITUS WITHOUT COMPLIC 07/25/2017 HUNTER FUENTES MD, Ot E78 .5 HYPERLIPIDEMIA, UNSPECIFIED 07/25/2017 HUNTER FUENTES MD, Ot E86 .1 HYPOVOLEMIA 07/25/2017 HUNTER FUENTES MD, Ot F17.210 NICOTINE DEPENDENCE, CIGARETTES, UNCOMPL 07/25/2017 HUNTER FUENTES MD, Ot F41 .9 ANXIETY DISORDER, UNSPECIFIED 07/25/2017 HUNTER FUENTES MD, Ot I11 .0 HYPERTENSIVE HEART DISEASE WITH HEART FA 07/25/2017 HUNTER FUENTES MD, Ot I25.10 ATHSCL HEART DISEASE OF [place] CORONARY 07/25/2017 HUNTER FUENTES MD, Ot I48 .0 PAROXYSMAL ATRIAL FIBRILLATION 07/25/2017 HUNTER FUENTES MD, Ot I48.92 UNSPECIFIED ATRIAL FLUTTER 07/25/2017 HUNTER FUENTES MD, Ot I50.23 ACUTE ON CHRONIC SYSTOLIC (CONGESTIVE) H 07/25/2017 HUNTER FUENTES MD, Ot I95 .9 HYPOTENSION, UNSPECIFIED 07/25/2017 HUNTER FUENTES MD, Ot J11.00 FLU DUE TO UNIDENTIFIED FLU VIRUS W UNSP 07/25/2017 HUNTER FUENTES MD, Ot J18 .9 PNEUMONIA, UNSPECIFIED ORGANISM 07/25/2017 HUNTER FUENTES MD, Ot J44 .0 CHRONIC OBSTRUCTIVE PULMON DISEASE W ACU 07/25/2017 HUNTER FUENTES MD, Ot J44 .1 CHRONIC OBSTRUCTIVE PULMONARY DISEASE W 07/25/2017 HUNTER FUENTES MD, Ot J96.21 ACUTE AND CHRONIC RESPIRATORY FAILURE [place] 07/25/2017 HUNTER FUENTES MD, Ot J96.22 ACUTE AND CHRONIC RESPIRATORY FAILURE [place] 07/25/2017 HUNTER FUENTES MD, Ot K59.00 CONSTIPATION, UNSPECIFIED 07/25/2017 HUNTER FUENTES MD, Ot K76 .0 FATTY (CHANGE OF) LIVER, NOT ELSEWHERE C 07/25/2017 HUNTER FUENTES MD, Ot N17 .9 ACUTE KIDNEY FAILURE, UNSPECIFIED 07/25/2017 HUNTER FUENTES MD, Ot R07 .9 CHEST PAIN, UNSPECIFIED 07/25/2017 HUNTER FUENTES MD, Ot R74 .0 NONSPEC ELEV OF LEVELS OF TRANSAMNS [place] 07/25/2017 HUNTER FUENTES MD, Ot Z79.84 EXPEDITER CLERK (CURRENT) USE OF ORAL HYPOGLYC 07/25/2017 HUNTER FUENTES MD, Ot Z85.118 PERSONAL HISTORY OF MALIGNANT NEOPLASM O 07/25/2017 HUNTER FUENTES MD, Ot Z85.21 PERSONAL HISTORY OF MALIGNANT NEOPLASM O 07/25/2017 HUNTER FUENTES MD, Ot Z90 .2 ACQUIRED ABSENCE OF LUNG [PART OF] 07/25/2017 HUNTER FUENTES MD, Ot Z92.21 PERSONAL HISTORY OF ANTINEOPLASTIC CHEMO 07/25/2017 HUNTER FUENTES MD, Ot Z92 .3 PERSONAL HISTORY OF IRRADIATION 07/25/2017 HUNTER FUENTES MD, Ot Z95 .1 PRESENCE OF AORTOCORONARY BYPASS GRAFT 07/25/2017 HUNTER FUENTES MD Ot E11 .9 TYPE 2 DIABETES MELLITUS WITHOUT COMPLIC 07/25/2017 HUNTER FUENTES MD, Ot E78 .5 HYPERLIPIDEMIA, UNSPECIFIED 07/25/2017 HUNTER FUENTES MD, Ot E86 .1 HYPOVOLEMIA 07/25/2017 HUNTER FUENTES MD, Ot F17.210 NICOTINE DEPENDENCE, CIGARETTES, UNCOMPL 07/25/2017 HUNTER FUENTES MD, Ot F41 .9 ANXIETY DISORDER, UNSPECIFIED 07/25/2017 HUNTER FUENTES MD, Ot I11 .0 HYPERTENSIVE HEART DISEASE WITH HEART FA 07/25/2017 HUNTER FUENTES MD, Ot I25.10 ATHSCL HEART DISEASE OF [place] CORONARY 07/25/2017 HUNTER FUENTES MD, Ot I48 .0 PAROXYSMAL ATRIAL FIBRILLATION 07/25/2017 HUNTER FUENTES MD, Ot I48.92 UNSPECIFIED ATRIAL FLUTTER 07/25/2017 HUNTER FUENTES MD, Ot I50.23 ACUTE ON CHRONIC SYSTOLIC (CONGESTIVE) H 07/25/2017 HUNTER FUENTES MD, Ot I95 .9 HYPOTENSION, UNSPECIFIED 07/25/2017 HUNTER FUENTES MD, Ot J11.00 FLU DUE TO UNIDENTIFIED FLU VIRUS W UNSP 07/25/2017 HUNTER FUENTES MD, Ot J18 .9 PNEUMONIA, UNSPECIFIED ORGANISM 07/25/2017 HUNTER FUENTES MD, Ot J44 .0 CHRONIC OBSTRUCTIVE PULMON DISEASE W ACU 07/25/2017 HUNTER FUENTES MD, Ot J44 .1 CHRONIC OBSTRUCTIVE PULMONARY DISEASE W 07/25/2017 HUNTER FUENTES MD, Ot J96.21 ACUTE AND CHRONIC RESPIRATORY FAILURE [place] 07/25/2017 HUNTER FUENTES MD, Ot J96.22 ACUTE AND CHRONIC RESPIRATORY FAILURE [place] 07/25/2017 HUNTER FUENTES MD, Ot K59.00 CONSTIPATION, UNSPECIFIED 07/25/2017 HUNTER FUENTES MD, Ot K76 .0 FATTY (CHANGE OF) LIVER, NOT ELSEWHERE C 07/25/2017 HUNTER FUENTES MD, Ot N17 .9 ACUTE KIDNEY FAILURE, UNSPECIFIED 07/25/2017 HUNTER FUENTES MD, Ot R07 .9 CHEST PAIN, UNSPECIFIED 07/25/2017 HUNTER FUENTES MD, Ot R74 .0 NONSPEC ELEV OF LEVELS OF TRANSAMNS LA 07/25/2017 HUNTER FUENTES MD, Ot Z79.84 RETIREMENT (CURRENT) USE OF ORAL HYPOGLYC 07/25/2017 HUNTER FUENTES MD, Ot Z85.118 PERSONAL HISTORY OF MALIGNANT NEOPLASM O 07/25/2017 HUNTER FUENTES MD, Ot Z85.21 PERSONAL HISTORY OF MALIGNANT NEOPLASM O 07/25/2017 HUNTER FUENTES MD, Ot Z90 .2 ACQUIRED ABSENCE OF LUNG [PART OF] 07/25/2017 HUNTER FUENTES MD, Ot Z92.21 PERSONAL HISTORY OF ANTINEOPLASTIC CHEMO 07/25/2017 HUNTER FUENTES MD, Ot Z92 .3 PERSONAL HISTORY OF IRRADIATION 07/25/2017 HUNTER FUENTES MD, Ot Z95 .1 PRESENCE OF AORTOCORONARY BYPASS GRAFT 07/25/2017 HUNTER FUENTES MD, Ot E11 .9 TYPE 2 DIABETES MELLITUS WITHOUT COMPLIC 07/25/2017 HUNTER FUENTES MD, Ot E78 .5 HYPERLIPIDEMIA, UNSPECIFIED 07/25/2017 HUNTER FUENTES MD, Ot E86 .1 HYPOVOLEMIA 07/25/2017 HUNTER FUENTES MD, Ot F17.210 NICOTINE DEPENDENCE, CIGARETTES, UNCOMPL 07/25/2017 HUNTER FUENTES MD, Ot F41 .9 ANXIETY DISORDER, UNSPECIFIED 07/25/2017 HUNTER FUENTES MD, Ot I11 .0 HYPERTENSIVE HEART DISEASE WITH HEART FA 07/25/2017 HUNTER FUENTES MD, Ot I25.10 ATHSCL HEART DISEASE OF [place] CORONARY 07/25/2017 HUNTER FUENTES MD, Ot I48 .0 PAROXYSMAL ATRIAL FIBRILLATION 07/25/2017 HUNTER FUENTES MD, Ot I48.92 UNSPECIFIED ATRIAL FLUTTER 07/25/2017 HUNTER FUENTES MD, Ot I50.23 ACUTE ON CHRONIC SYSTOLIC (CONGESTIVE) H 07/25/2017 HUNTER FUENTES MD, Ot I95 .9 HYPOTENSION, UNSPECIFIED 07/25/2017 HUNTER FUENTES MD, Ot J11.00 FLU DUE TO UNIDENTIFIED FLU VIRUS W UNSP 07/25/2017 HUNTER FUENTES MD, Ot J18 .9 PNEUMONIA, UNSPECIFIED ORGANISM 07/25/2017 HUNTER FUENTES MD, Ot J44 .0 CHRONIC OBSTRUCTIVE PULMON DISEASE W ACU 07/25/2017 HUNTER FUENTES MD, Ot J44 .1 CHRONIC OBSTRUCTIVE PULMONARY DISEASE W 07/25/2017 HUNTER FUENTES MD, Ot J96.21 ACUTE AND CHRONIC RESPIRATORY FAILURE [place] 07/25/2017 HUNTER FUENTES MD, Ot J96.22 ACUTE AND CHRONIC RESPIRATORY FAILURE [place] 07/25/2017 HUNTER FUENTES MD, Ot K59.00 CONSTIPATION, UNSPECIFIED 07/25/2017 HUNTER FUENTES MD, Ot K76 .0 FATTY (CHANGE OF) LIVER, NOT ELSEWHERE C 07/25/2017 HUNTER FUENTES MD, Ot N17 .9 ACUTE KIDNEY FAILURE, UNSPECIFIED 07/25/2017 HUNTER FUENTES MD, Ot R07 .9 CHEST PAIN, UNSPECIFIED 07/25/2017 HUNTER FUENTES MD, Ot R74 .0 NONSPEC ELEV OF LEVELS OF TRANSAMNS LA 07/25/2017 HUNTER FUENTES MD Ot Z79.84 EXPEDITER CLERK (CURRENT) USE OF ORAL HYPOGLYC 07/25/2017 HUNTER FUENTES MD Ot Z85.118 PERSONAL HISTORY OF MALIGNANT NEOPLASM O 07/25/2017 HUNTER FUENTES MD, Ot Z85.21 PERSONAL HISTORY OF MALIGNANT NEOPLASM O 07/25/2017 HUNTER FUENTES MD Ot Z90 .2 ACQUIRED ABSENCE OF LUNG [PART OF] 07/25/2017 HUNTER FUENTES MD, Ot Z92.21 PERSONAL HISTORY OF ANTINEOPLASTIC CHEMO 07/25/2017 HUNTER FUENTES MD, Ot Z92 .3 PERSONAL HISTORY OF IRRADIATION 07/25/2017 HUNTER FUENTES MD, Ot Z95 .1 PRESENCE OF AORTOCORONARY BYPASS GRAFT 08/25/2017 NALINI JOHNS DO S Ot 246.2 CYST OF THYROID 08/25/2017 NALINI JOHNS DO S Ot 787.20 DYSPHAGIA, UNSPECIFIED 08/25/2017 STEF MAI MD Ot 241 .0 NONTOX UNINODULAR GOITER 08/25/2017 STEF MAI MD Ot 492 .8 EMPHYSEMA NEC 08/25/2017 STEF MAI MD Ot 784 .2 SWELLING IN HEAD NECK 08/25/2017 STEF MAI MD Ot 785 .6 ENLARGEMENT LYMPH NODES 08/25/2017 STEF MAI MD Ot 787.20 DYSPHAGIA, UNSPECIFIED 08/25/2017 STEF MAI MD Ot 240 .9 GOITER NOS 08/25/2017 STEF MAI MD Ot 780.79 OTH MALAISE FATIGUE 08/25/2017 STEF MAI MD Ot 784.42 DYSPHONIA 08/25/2017 ALBA RAMIREZ MD Ot 401. 9 HYPERTENSION NOS 08/25/2017 ALBA RAMIREZ MD Ot 414. 00 CORON ATHEROSCLER NOS TYPE VESSEL, NATIV 08/25/2017 ALBA RAMIREZ MD Ot 794. 30 ABN CARDIOVASC STUDY NOS 08/25/2017 SHARLENE CUTLER, MAGAN Delong Ot 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 08/25/2017 LILLY LEE DO Ot 161. 1 MALIG HILARIO SUPRAGLOTTIS 08/25/2017 LILLY LEE DO Ot V72. 63 PRE-PROCEDURAL LABORATORY EXAMINATION 08/25/2017 LILLY LEE DO Ot V72. 84 EXAM PRE-OPERATIVE NOS 08/25/2017 HASSAN, HILAH S [employer]LEYBALL PLAYER Ot 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 08/25/2017 HASSAN, HILAH S [employer]LEYBALL PLAYER Ot 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 08/25/2017 HASSAN, HILAH S [employer]LEYBALL PLAYER Ot 250.00 DIAB OLU WO COMPL, TYPE II OR UNSPEC TY 08/25/2017 HASSAN HILAH S [employer] PLAYER Ot 305.1 TOBACCO USE DISORDER 08/25/2017 HASSAN, HILAH S [employer] PLAYER Ot 401.9 HYPERTENSION NOS 08/25/2017 HASSAN, HILAH S [employer] PLAYER Ot 414.00 CORON ATHEROSCLER NOS TYPE VESSEL, NATIV 08/25/2017 HASSAN, HILAH S [employer] PLAYER Ot 793.11 SOLITARY PULMONARY NODULE 08/25/2017 SONYA HILAH S [employer] PLAYER Ot V45.81 AORTOCORONARY BYPASS 08/25/2017 HASSAN, HILAH S [employer] PLAYER Ot V58.67 LONG-TERM (CURRENT) USE OF INSULIN 08/25/2017 HASSAN, HILAH S [employer] PLAYER Ot V58.69 OTH MED,LT,CURRENT USE 08/25/2017 TONJA HASSANAH S [employer]LEY[employer]ALL PLAYER Ot 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 08/25/2017 HASSAN HILAH S [employer] PLAYER Ot 196.0 MAL HILAROI LYMPH-HEAD/NECK 08/25/2017 HASSAN HILAH S [employer] PLAYER Ot 250.00 DIAB OLU WO COMPL, TYPE II OR UNSPEC TY 08/25/2017 HASSAN, HILAH S [employer] PLAYER Ot 305.1 TOBACCO USE DISORDER 08/25/2017 HASSAN HILAH S [employer] PLAYER Ot 401.9 HYPERTENSION NOS 08/25/2017 SONYA HILAH S [employer] PLAYER Ot 414.00 CORON ATHEROSCLER NOS TYPE VESSEL, NATIV 08/25/2017 HASSAN HILAH S [employer] PLAYER Ot 793.11 SOLITARY PULMONARY NODULE 08/25/2017 HASSAN HILAH S [employer] PLAYER Ot V45.81 AORTOCORONARY BYPASS 08/25/2017 HASSAN HILAH S [employer] PLAYER Ot V58.67 LONG-TERM (CURRENT) USE OF INSULIN 08/25/2017 HASSAN, HILAH S [employer] PLAYER Ot V58.69 OTH MED,LT,CURRENT USE 08/25/2017 HASSAN HILAH S [employer] PLAYER Ot 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 08/25/2017 HASSAN HILAH S [employer] PLAYER Ot 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 08/25/2017 HASSAN, HILAH S [employer] PLAYER Ot 250.00 DIAB OLU WO COMPL, TYPE II OR UNSPEC TY 08/25/2017 SONYA HILAH S [employer] PLAYER Ot 305.1 TOBACCO USE DISORDER 08/25/2017 SONYA HILAH S [employer] PLAYER Ot 401.9 HYPERTENSION NOS 08/25/2017 HASSAN, HILAH S [employer] PLAYER Ot 414.00 CORON ATHEROSCLER NOS TYPE VESSEL, NATIV 08/25/2017 SONYA HILAH S [employer] PLAYER Ot 793.11 SOLITARY PULMONARY NODULE 08/25/2017 SONYA HILAH S [employer] PLAYER Ot V45.81 AORTOCORONARY BYPASS 08/25/2017 SONYA HILAH S [employer] PLAYER Ot V58.67 LONG-TERM (CURRENT) USE OF INSULIN 08/25/2017 SONYA HILAH S [employer] PLAYER Ot V58.69 OTH MED,LT,CURRENT USE 08/25/2017 SONYA HILAH S [employer] PLAYER Ot 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 08/25/2017 TONJA HASSANAH S V[employer]LEY[employer]ALL PLAYER Ot 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 08/25/2017 HASSAN HILAH S [employer] PLAYER Ot 250.00 DIAB OLU WO COMPL, TYPE II OR UNSPEC TY 08/25/2017 TONJA HASSANAH S [employer] PLAYER Ot 305.1 TOBACCO USE DISORDER 08/25/2017 TONJA HASSANAH S [employer] PLAYER Ot 401.9 HYPERTENSION NOS 08/25/2017 TONJA HASSANAH S [employer] PLAYER Ot 414.00 CORON ATHEROSCLER NOS TYPE VESSEL, NATIV 08/25/2017 TONJA HASSANAH S [employer] PLAYER Ot 793.11 SOLITARY PULMONARY NODULE 08/25/2017 TONJA HASSANAH S [employer] PLAYER Ot V45.81 AORTOCORONARY BYPASS 08/25/2017 HASSAN HILAH S [employer] PLAYER Ot V58.67 LONG-TERM (CURRENT) USE OF INSULIN 08/25/2017 HASSAN HILAH S [employer] PLAYER Ot V58.69 OTH MED,LT,CURRENT USE 08/25/2017 HASSAN HILAH S [employer] PLAYER Ot 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 08/25/2017 HASSAN HILAH S [employer] PLAYER Ot 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 08/25/2017 HASSAN HILAH S [employer] PLAYER Ot 250.00 DIAB OLU WO COMPL, TYPE II OR UNSPEC TY 08/25/2017 HASSAN HILAH S [employer] PLAYER Ot 305.1 TOBACCO USE DISORDER 08/25/2017 HASSAN, HILAH S [employer] PLAYER Ot 401.9 HYPERTENSION NOS 08/25/2017 HASSAN, HILAH S [employer] PLAYER Ot 414.00 CORON ATHEROSCLER NOS TYPE VESSEL, NATIV 08/25/2017 HASSAN, HILAH S [employer]LEY[employer] PLAYER Ot 793.11 SOLITARY PULMONARY NODULE 08/25/2017 HASSAN HILAH S [employer] PLAYER Ot V45.81 AORTOCORONARY BYPASS 08/25/2017 HASSAN, HILAH S [employer] PLAYER Ot V58.67 LONG-TERM (CURRENT) USE OF INSULIN 08/25/2017 HASSAN, HILAH S [employer] PLAYER Ot V58.69 OTH MED,LT,CURRENT USE 08/25/2017 HASSAN HILAH S [employer] PLAYER Ot 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 08/25/2017 HASSAN HILAH S [employer] PLAYER Ot 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 08/25/2017 HASSAN HILAH S [employer] PLAYER Ot 250.00 DIAB OLU WO COMPL, TYPE II OR UNSPEC TY 08/25/2017 HASSAN, HILAH S [employer] PLAYER Ot 305.1 TOBACCO USE DISORDER 08/25/2017 HASSAN HILAH S [employer] PLAYER Ot 401.9 HYPERTENSION NOS 08/25/2017 HASSAN, HILAH S [employer]LEY[employer] PLAYER Ot 414.00 CORON ATHEROSCLER NOS TYPE VESSEL, NATIV 08/25/2017 HASSAN HILAH S [employer]LEY[employer] PLAYER Ot 4 96 CHR AIRWAY OBSTRUCT NEC 08/25/2017 HASSAN HILAH S [employer] PLAYER Ot 793.11 SOLITARY PULMONARY NODULE 08/25/2017 HASSAN HILAH S [employer] PLAYER Ot V45.81 AORTOCORONARY BYPASS 08/25/2017 HASSAN HILAH S [employer] PLAYER Ot V58.67 LONG-TERM (CURRENT) USE OF INSULIN 08/25/2017 HASSAN HILAH S [employer] PLAYER Ot V58.69 OTH MED,LT,CURRENT USE 08/25/2017 SALOME STEVE N Ot 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 08/25/2017 SALOME STEVE Ot 496 CHR AIRWAY OBSTRUCT NEC 08/25/2017 SALOME STEVE Ot 787.20 DYSPHAGIA, UNSPECIFIED 08/25/2017 SALOME STEVE N Ot 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 08/25/2017 PACOZAK LÓPEZ V[employer]LEYBALL PLAYER Ot 250.02 DIAB OLU WO COMPL, TYPE II OR UNSPEC TY 08/25/2017 HASSANKAYCEE Marinelli S [employer] PLAYER Ot 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 08/25/2017 KAYCEE HASSAN S [employer]LEY[employer]ALL PLAYER Ot 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 08/25/2017 HASSANKAYCEE Marinelli S [employer]LEY[employer] PLAYER Ot 250.00 DIAB OLU WO COMPL, TYPE II OR UNSPEC TY 08/25/2017 HASSAN, HILAH S [employer]LEY[employer] PLAYER Ot 305.1 TOBACCO USE DISORDER 08/25/2017 HASSAN, HILAH S [employer]LEY[employer] PLAYER Ot 401.9 HYPERTENSION NOS 08/25/2017 HASSAN HILAH S VOLLEYBALL PLAYER Ot 414.00 CORON ATHEROSCLER NOS TYPE VESSEL, NATIV 08/25/2017 HASSAN HILAH S VOLLEYBALL PLAYER Ot 4 96 CHR AIRWAY OBSTRUCT NEC 08/25/2017 HASSAN HILAH S VOLLEYBALL PLAYER Ot 793.11 SOLITARY PULMONARY NODULE 08/25/2017 KAYCEE HASSAN S VOLLEYBALL PLAYER Ot V45.81 AORTOCORONARY BYPASS 08/25/2017 TONJA HASSANAH S VOLLEYBALL PLAYER Ot V58.67 LONG-TERM (CURRENT) USE OF INSULIN 08/25/2017 TONJA HASSANAH S VOLLEYBALL PLAYER Ot V58.69 OTH MED,LT,CURRENT USE 08/25/2017 TONJA HASSANAH S VOLLEYBALL PLAYER Ot 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 08/25/2017 TONJA HASSANAH S VOLLEYBALL PLAYER Ot 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 08/25/2017 TONJA HASSANAH S VOLLEYBALL PLAYER Ot 250.00 DIAB OLU WO COMPL, TYPE II OR UNSPEC TY 08/25/2017 HASSAN HILAH S VOLLEYBALL PLAYER Ot 305.1 TOBACCO USE DISORDER 08/25/2017 HASSAN HILAH S VOLLEYBALL PLAYER Ot 401.9 HYPERTENSION NOS 08/25/2017 HASSAN HILAH S VOLLEYBALL PLAYER Ot 414.00 CORON ATHEROSCLER NOS TYPE VESSEL, NATIV 08/25/2017 HASSAN HILAH S VOLLEYBALL PLAYER Ot 4 96 CHR AIRWAY OBSTRUCT NEC 08/25/2017 HASSAN HILAH S VOLLEYBALL PLAYER Ot 793.11 SOLITARY PULMONARY NODULE 08/25/2017 SONYA HILAH S VOLLEYBALL PLAYER Ot V45.81 AORTOCORONARY BYPASS 08/25/2017 KAYCEE HASSAN VOLLEYBALL PLAYER Ot V58.67 LONG-TERM (CURRENT) USE OF INSULIN 08/25/2017 KAYCEE HASSAN VOLLEYBALL PLAYER Ot V58.69 OTH MED,LT,CURRENT USE 08/25/2017 KAYCEE HASSAN VOLLEYBALL PLAYER Ot 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 4 HYPERLIPIDEMIA NEC/NOS 08/25/2017 KYLIE TAYLOR MD Ot 401. 9 HYPERTENSION NOS 08/25/2017 KYLIE TAYLOR MD Ot 414. 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 08/25/2017 KAYCEE HASSAN VOLLEYBALL PLAYER Ot 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 08/25/2017 KAYCEE HASSAN VOLLEYBALL PLAYER Ot 250.00 DIAB OLU WO COMPL, TYPE II OR UNSPEC TY 08/25/2017 KAYCEE HASSAN VOLLEYBALL PLAYER Ot 305.1 TOBACCO USE DISORDER 08/25/2017 KAYCEE HASSAN S VOLLEYBALL PLAYER Ot 401.9 HYPERTENSION NOS 08/25/2017 KAYCEE HASSAN VOLLEYBALL PLAYER Ot 414.00 CORON ATHEROSCLER NOS TYPE VESSEL, NATIV 08/25/2017 KAYCEE HASSAN VOLLEYBALL PLAYER Ot 4 96 CHR AIRWAY OBSTRUCT NEC 08/25/2017 KAYCEE HASSAN VOLLEYBALL PLAYER Ot 793.11 SOLITARY PULMONARY NODULE 08/25/2017 KAYCEE HASSAN VOLLEYBALL PLAYER Ot V45.81 AORTOCORONARY BYPASS 08/25/2017 KAYCEE HASSAN VOLLEYBALL PLAYER Ot V58.67 LONG-TERM (CURRENT) USE OF INSULIN 08/25/2017 KAYCEE HASSAN VOLLEYBALL PLAYER Ot V58.69 OTH MED,LT,CURRENT USE 08/25/2017 KAYCEE HASSAN VOLLEYBALL PLAYER Ot 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 08/25/2017 SONYA KAYCEE S VOLLEYBALL PLAYER Ot 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 08/25/2017 HASSANKAYCEE Marinelli S VOLLEYBALL PLAYER Ot 250.00 DIAB OLU WO COMPL, TYPE II OR UNSPEC TY 08/25/2017 KAYCEE HASSAN S VOLLEYBALL PLAYER Ot 305.1 TOBACCO USE DISORDER 08/25/2017 SONYA KAYCEE S VOLLEYBALL PLAYER Ot 401.9 HYPERTENSION NOS 08/25/2017 HASSAN KAYCEE S VOLLEYBALL PLAYER Ot 414.00 CORON ATHEROSCLER NOS TYPE VESSEL, NATIV 08/25/2017 HASSAN KAYCEE S VOLLEYBALL PLAYER Ot 4 96 CHR AIRWAY OBSTRUCT NEC 08/25/2017 SONYA KAYCEE S VOLLEYBALL PLAYER Ot 793.11 SOLITARY PULMONARY NODULE 08/25/2017 HASSAN, KAYCEE S VOLLEYBALL PLAYER Ot V45.81 AORTOCORONARY BYPASS 08/25/2017 HASSAN, KAYCEE S VOLLEYBALL PLAYER Ot V58.67 LONG-TERM (CURRENT) USE OF INSULIN 08/25/2017 SONYA KAYCEE S VOLLEYBALL PLAYER Ot V58.69 OT MED,LT,CURRENT USE 08/25/2017 HASSAN, KAYCEE S VOLLEYBALL PLAYER Ot V58.81 FIT/ADJ VASCULAR CATHETER 08/25/2017 SONYA KAYCEE S VOLLEYBALL PLAYER Ot 141.9 MALIG HILARIO TONGUE NOS 08/25/2017 SONYA KAYCEE S VOLLEYBALL PLAYER Ot 793.11 SOLITARY PULMONARY NODULE 08/25/2017 Ot 786.6 CHES T SWELLING/MASS/LUMP 08/25/2017 Ot V72.63 PRE -PROCEDURAL LABORATORY EXAMINATION 08/25/2017 Ot V72.81 [id number] CARDIOVASCULAR 08/25/2017 Ot V72.83 EXA M PRE- OPERATIVE NEC 08/25/2017 DARIAN JESSICA MD Ot 162. 9 MAL HILARIO BRONCH/LUNG NOS 08/25/2017 DARIAN JESSICA MD Ot 414. 01 CORONARY ATHEROSCLEROSIS OF [place] CORON 08/25/2017 DARIAN JESSICA MD Ot 782. 3 EDEMA 08/25/2017 SALOME STEVE Ot 793.11 SOLITARY PULMONARY NODULE 08/25/2017 KYLIE TAYLOR MD Ot 250. 00 DIAB OLU WO COMPL, TYPE II OR UNSPEC TY 08/25/2017 KYLIE TAYLOR MD Ot 401. 9 HYPERTENSION NOS 08/25/2017 KYLIE TAYLOR MD Ot 414. 00 CORON ATHEROSCLER NOS TYPE VESSEL, NATIV 08/25/2017 KYLIE TAYLOR MD Ot 428. 0 CONGESTIVE HEART FAILURE NOS 08/25/2017 KYLIE TAYLOR MD Ot V58. 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 1 MALIGNANT NEOPLASM OF SUPRAGLOTTIS 08/25/2017 LILIAN TREJO DO Ot C34. 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 NEOPLASM OF UPPER LOBE, LEFT B 08/25/2017 LILIAN TREJO DO Ot C32. 1 MALIGNANT NEOPLASM OF SUPRAGLOTTIS 08/25/2017 LILIAN TREJO DO Ot C34. 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 NEOPLASM OF UPPER LOBE, LEFT B 08/25/2017 KAYCEE HASSAN VOLLEYBALL PLAYER Ot C32.1 MALIGNANT NEOPLASM OF SUPRAGLOTTIS 08/25/2017 KAYCEE HASSAN VOLLEYBALL PLAYER Ot C34.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 NEOPLASM OF UPPER LOBE, LEFT B 08/25/2017 KAYCEE HASSAN VOLLEYBALL PLAYER Ot M25.552 PAIN IN LEFT HIP 08/25/2017 ANAIS ANGULO MD Ot C32.1 MALIGNANT NEOPLASM OF SUPRAGLOTTIS 08/25/2017 ANAIS ANGULO MD Ot Z09 ENCNTR FOR F/U EXAM AFT TRTMT FOR COND O 08/25/2017 ANAIS ANGULO MD Ot Z96.8 9 PRESENCE OF OTHER SPECIFIED FUNCTIONAL I 08/25/2017 SERGEI CUTLER, STEF Arriola Ot C32 .1 MALIGNANT NEOPLASM OF SUPRAGLOTTIS 08/25/2017 ROBERTO CLANCY VOLLEYBALL PLAYER Ot Z12.31 ENCNTR SCREEN MAMMOGRAM FOR MALIGNANT NE 08/25/2017 KAYCEE HASSAN VOLLEYBALL PLAYER Ot C32.1 MALIGNANT NEOPLASM OF SUPRAGLOTTIS 08/25/2017 KAYCEE HASSAN VOLLEYBALL PLAYER Ot C34.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 NEOPLASM OF UPPER LOBE, LEFT B 08/25/2017 KAYCEE HASSAN VOLLEYBALL PLAYER Ot C32.1 MALIGNANT NEOPLASM OF SUPRAGLOTTIS 08/25/2017 KAYCEE HASSAN VOLLEYBALL PLAYER Ot C34.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 NEOPLASM OF UPPER LOBE, LEFT B 08/25/2017 SALOME STEVE Ot C32.1 MALIGNANT NEOPLASM OF SUPRAGLOTTIS 08/25/2017 SALOME STEVE Ot C34.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 NEOPLASM OF UPPER LOBE, LEFT B 08/25/2017 SALOME STEVE Ot E11.43 TYPE 2 DIABETES W DIABETIC AUTONOMIC (PO 08/25/2017 SALOME STEVE Ot E78.5 HYPERLIPIDEMIA, UNSPECIFIED 08/25/2017 SALOME STEVE Ot E83.42 HYPOMAGNESEMIA 08/25/2017 SALOME STEVE Ot F17.210 NICOTINE DEPENDENCE, CIGARETTES, UNCOMPL 08/25/2017 SALOME STEVE Ot I10 ESSENTIAL (PRIMARY) HYPERTENSION 08/25/2017 SALOME STEVE Ot I25.10 ATHSCL HEART DISEASE OF [place] CORONARY 08/25/2017 SALOME STEVE Ot J43.9 EMPHYSEMA, UNSPECIFIED 08/25/2017 SALOME STEVE Ot Z45.2 ENCOUNTER FOR ADJUSTMENT AND MANAGEMENT 08/25/2017 SALOME STEVE Ot Z79.899 OTHER RETIREMENT (CURRENT) DRUG THERAPY 08/25/2017 SALOME STEVE Ot Z92.21 PERSONAL HISTORY OF ANTINEOPLASTIC CHEMO 08/25/2017 SALOME STEVE Ot Z92.3 PERSONAL HISTORY OF IRRADIATION 09/24/2017 SALOME STEVE Ot C32.1 MALIGNANT NEOPLASM OF SUPRAGLOTTIS 09/24/2017 SALOME STEVE Ot C34.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 NEOPLASM OF UPPER LOBE, LEFT B 09/24/2017 SALOME STEVE Ot R74.8 ABNORMAL LEVELS OF OTHER SERUM ENZYMES 09/29/2017 SALOME STEVE Ot C32.1 MALIGNANT NEOPLASM OF SUPRAGLOTTIS 09/29/2017 SALOME STEVE Miguel A Ot C34.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 NEOPLASM OF UPPER LOBE, LEFT B 09/29/2017 SALOME STEVE Miguel A Ot E11.43 TYPE 2 DIABETES W DIABETIC AUTONOMIC (PO 09/29/2017 SALOME STEVE Miguel A Ot E78.5 HYPERLIPIDEMIA, UNSPECIFIED 09/29/2017 SALOME STEVE MiguelA Ot E83.42 HYPOMAGNESEMIA 09/29/2017 POWER PIOTRBRANDO Miguel A Ot F17.210 NICOTINE DEPENDENCE, CIGARETTES, UNCOMPL 09/29/2017 SALOME STEVE Miguel A Ot I10 ESSENTIAL (PRIMARY) HYPERTENSION 09/29/2017 SALOME STEVE Miguel A Ot I25.10 ATHSCL HEART DISEASE OF [place] CORONARY 09/29/2017 SALOME STEVE Miguel A Ot J43.9 EMPHYSEMA, UNSPECIFIED 09/29/2017 SALOME STEVE Miguel A Ot Z45.2 ENCOUNTER FOR ADJUSTMENT AND MANAGEMENT 09/29/2017 SALOME STEVE Miguel A Ot Z79.899 OTHER RETIREMENT (CURRENT) DRUG THERAPY 09/29/2017 SALOME STEVE Miguel A Ot Z92.21 PERSONAL HISTORY OF ANTINEOPLASTIC CHEMO 09/29/2017 SALOME STEVE Miguel A Ot Z92.3 PERSONAL HISTORY OF IRRADIATION 09/29/2017 NALINI JOHNS DO Ot 246.2 CYST OF THYROID 09/29/2017 NALINI JOHNS DO S Ot 787.20 DYSPHAGIA, UNSPECIFIED 09/29/2017 STEF MAI MD Ot 241 .0 NONTOX UNINODULAR GOITER 09/29/2017 STEF MAI MD Ot 492 .8 EMPHYSEMA NEC 09/29/2017 STEF MAI MD Ot 784 .2 SWELLING IN HEAD NECK 09/29/2017 STEF MAI MD Ot 785 .6 ENLARGEMENT LYMPH NODES 09/29/2017 STEF MAI MD Ot 787.20 DYSPHAGIA, UNSPECIFIED 09/29/2017 STEF MAI MD Ot 240 .9 GOITER NOS 09/29/2017 STEF MAI MD Ot 780.79 OTH MALAISE FATIGUE 09/29/2017 STEF MAI MD Ot 784.42 DYSPHONIA 09/29/2017 ALBA RAMIREZ MD Ot 401. 9 HYPERTENSION NOS 09/29/2017 ALBA RAMIREZ MD Ot 414. 00 CORON ATHEROSCLER NOS TYPE VESSEL, NATIV 09/29/2017 JAMES CUTLER, ALBA Zamora Ot 794. 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 1 MALIG HILARIO SUPRAGLOTTIS 09/29/2017 [facility] V72. 63 PRE-PROCEDURAL LABORATORY EXAMINATION 09/29/2017 ARBUCKLE LILLY BIRD Ot V72. 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 09/29/2017 HASSAN, HILAH S VOLLEYBALL PLAYER Ot 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 09/29/2017 HASSAN, HILAH S VOLLEYBALL PLAYER Ot 250.00 DIAB OLU WO COMPL, TYPE II OR UNSPEC TY 09/29/2017 HASSAN, HILAH S VOLLEYBALL PLAYER Ot 305.1 TOBACCO USE DISORDER 09/29/2017 TONJA HASSANAH S VOLLEYBALL PLAYER Ot 401.9 HYPERTENSION NOS 09/29/2017 TONJA HASSANAH S VOLLEYBALL PLAYER Ot 414.00 CORON ATHEROSCLER NOS TYPE VESSEL, NATIV 09/29/2017 KAYCEE HASSAN S VOLLEYBALL PLAYER Ot 793.11 SOLITARY PULMONARY NODULE 09/29/2017 KAYCEE HASSAN S VOLLEYBALL PLAYER Ot V45.81 AORTOCORONARY BYPASS 09/29/2017 KAYCEE HASSAN S VOLLEYBALL PLAYER Ot V58.67 LONG-TERM (CURRENT) USE OF INSULIN 09/29/2017 KAYCEE HASSAN S VOLLEYBALL PLAYER Ot V58.69 OT MED,LT,CURRENT USE 09/29/2017 TONJA HASSANAH S VOLLEYBALL PLAYER Ot 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 09/29/2017 HASSAN, HILAH S VOLLEYBALL PLAYER Ot 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 09/29/2017 HASSAN HILAH S VOLLEYBALL PLAYER Ot 250.00 DIAB OLU WO COMPL, TYPE II OR UNSPEC TY 09/29/2017 HASSAN HILAH S VOLLEYBALL PLAYER Ot 305.1 TOBACCO USE DISORDER 09/29/2017 HASSAN HILAH S VOLLEYBALL PLAYER Ot 401.9 HYPERTENSION NOS 09/29/2017 HASSAN HILAH S VOLLEYBALL PLAYER Ot 414.00 CORON ATHEROSCLER NOS TYPE VESSEL, NATIV 09/29/2017 KAYCEE HASSAN S VOLLEYBALL PLAYER Ot 793.11 SOLITARY PULMONARY NODULE 09/29/2017 KAYCEE HASSAN S VOLLEYBALL PLAYER Ot V45.81 AORTOCORONARY BYPASS 09/29/2017 KAYCEE HASSAN S VOLLEYBALL PLAYER Ot V58.67 LONG-TERM (CURRENT) USE OF INSULIN 09/29/2017 KAYCEE HASSAN S VOLLEYBALL PLAYER Ot V58.69 OTH MED,LT,CURRENT USE 09/29/2017 KAYCEE HASSAN S VOLLEYBALL PLAYER Ot 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 09/29/2017 KAYCEE HASSAN S VOLLEYBALL PLAYER Ot 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 09/29/2017 TONJA HASSANAH S VOLLEYBALL PLAYER Ot 250.00 DIAB OLU WO COMPL, TYPE II OR UNSPEC TY 09/29/2017 TONJA HASSANAH S VOLLEYBALL PLAYER Ot 305.1 TOBACCO USE DISORDER 09/29/2017 KAYCEE HASSAN S VOLLEYBALL PLAYER Ot 401.9 HYPERTENSION NOS 09/29/2017 TONJA HASSANAH S VOLLEYBALL PLAYER Ot 414.00 CORON ATHEROSCLER NOS TYPE VESSEL, NATIV 09/29/2017 KAYCEE HASSAN S VOLLEYBALL PLAYER Ot 793.11 SOLITARY PULMONARY NODULE 09/29/2017 KAYCEE HASSAN S VOLLEYBALL PLAYER Ot V45.81 AORTOCORONARY BYPASS 09/29/2017 TONJA HASSANBOB S VOLLEYBALL PLAYER Ot V58.67 LONG-TERM (CURRENT) USE OF INSULIN 09/29/2017 TONJA HASSANBOB S VOLLEYBALL PLAYER Ot V58.69 OTH MED,LT,CURRENT USE 09/29/2017 KAYCEE HASSAN S VOLLEYBALL PLAYER Ot 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 09/29/2017 KAYCEE HASSAN S VOLLEYBALL PLAYER Ot 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 09/29/2017 TONJA HASSANAH S VOLLEYBALL PLAYER Ot 250.00 DIAB OLU WO COMPL, TYPE II OR UNSPEC TY 09/29/2017 SONYA HILAH S VOLLEYBALL PLAYER Ot 305.1 TOBACCO USE DISORDER 09/29/2017 SONYA HILAH S VOLLEYBALL PLAYER Ot 401.9 HYPERTENSION NOS 09/29/2017 SONYA HILAH S VOLLEYBALL PLAYER Ot 414.00 CORON ATHEROSCLER NOS TYPE VESSEL, NATIV 09/29/2017 TONJA HASSANAH S VOLLEYBALL PLAYER Ot 793.11 SOLITARY PULMONARY NODULE 09/29/2017 KAYCEE HASSAN S VOLLEYBALL PLAYER Ot V45.81 AORTOCORONARY BYPASS 09/29/2017 TONJA HASSANAH S VOLLEYBALL PLAYER Ot V58.67 LONG-TERM (CURRENT) USE OF INSULIN 09/29/2017 KAYCEE HASSAN S VOLLEYBALL PLAYER Ot V58.69 OTH MED,LT,CURRENT USE 09/29/2017 KAYCEE HASSAN S VOLLEYBALL PLAYER Ot 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 09/29/2017 TONJA HASSANAH S VOLLEYBALL PLAYER Ot 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 09/29/2017 TONJA HASSANAH S VOLLEYBALL PLAYER Ot 250.00 DIAB OLU WO COMPL, TYPE II OR UNSPEC TY 09/29/2017 SONYA HILAH S VOLLEYBALL PLAYER Ot 305.1 TOBACCO USE DISORDER 09/29/2017 TONJA HASSANAH S VOLLEYBALL PLAYER Ot 401.9 HYPERTENSION NOS 09/29/2017 TONJA HASSANAH S VOLLEYBALL PLAYER Ot 414.00 CORON ATHEROSCLER NOS TYPE VESSEL, NATIV 09/29/2017 KAYCEE HASSAN S VOLLEYBALL PLAYER Ot 793.11 SOLITARY PULMONARY NODULE 09/29/2017 KAYCEE HASSAN S VOLLEYBALL PLAYER Ot V45.81 AORTOCORONARY BYPASS 09/29/2017 KAYCEE HASSAN S VOLLEYBALL PLAYER Ot V58.67 LONG-TERM (CURRENT) USE OF INSULIN 09/29/2017 KAYCEE HASSAN S VOLLEYBALL PLAYER Ot V58.69 OTH MED,LT,CURRENT USE 09/29/2017 KAYCEE HASSAN S VOLLEYBALL PLAYER Ot 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 09/29/2017 KAYCEE HASSAN S VOLLEYBALL PLAYER Ot 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 09/29/2017 KAYCEE HASSAN S VOLLEYBALL PLAYER Ot 250.00 DIAB OLU WO COMPL, TYPE II OR UNSPEC TY 09/29/2017 TONJA HASSANAH S VOLLEYBALL PLAYER Ot 305.1 TOBACCO USE DISORDER 09/29/2017 TONJA HASSANAH S VOLLEYBALL PLAYER Ot 401.9 HYPERTENSION NOS 09/29/2017 SONYA HILAH S VOLLEYBALL PLAYER Ot 414.00 CORON ATHEROSCLER NOS TYPE VESSEL, NATIV 09/29/2017 KAYCEE HASSAN S VOLLEYBALL PLAYER Ot 4 96 CHR AIRWAY OBSTRUCT NEC 09/29/2017 KAYCEE HASSAN S VOLLEYBALL PLAYER Ot 793.11 SOLITARY PULMONARY NODULE 09/29/2017 KAYCEE HASSAN S VOLLEYBALL PLAYER Ot V45.81 AORTOCORONARY BYPASS 09/29/2017 KAYCEE HASSAN VOLLEYBALL PLAYER Ot V58.67 LONG-TERM (CURRENT) USE OF INSULIN 09/29/2017 KAYCEE HASSAN VOLLEYBALL PLAYER Ot V58.69 OTH MED,LT,CURRENT USE 09/29/2017 SALOME STEVE N Ot 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 09/29/2017 SALOME STEVE N Ot 496 CHR AIRWAY OBSTRUCT NEC 09/29/2017 SALOME STEVE N Ot 787.20 DYSPHAGIA, UNSPECIFIED 09/29/2017 SALOME STEVE N Ot 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 09/29/2017 ZAK BUCIO VOLLEYBALL PLAYER Ot 250.02 DIAB OLU WO COMPL, TYPE II OR UNSPEC TY 09/29/2017 KAYCEE HASSAN S VOLLEYBALL PLAYER Ot 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 09/29/2017 KAYCEE HASSAN S VOLLEYBALL PLAYER Ot 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 09/29/2017 KAYCEE HASSAN S VOLLEYBALL PLAYER Ot 250.00 DIAB OLU WO COMPL, TYPE II OR UNSPEC TY 09/29/2017 KAYCEE HASSAN S VOLLEYBALL PLAYER Ot 305.1 TOBACCO USE DISORDER 09/29/2017 KAYCEE HASSAN VOLLEYBALL PLAYER Ot 401.9 HYPERTENSION NOS 09/29/2017 KAYCEE HASSAN VOLLEYBALL PLAYER Ot 414.00 CORON ATHEROSCLER NOS TYPE VESSEL, NATIV 09/29/2017 KAYCEE HASSAN VOLLEYBALL PLAYER Ot 4 96 CHR AIRWAY OBSTRUCT NEC 09/29/2017 KAYCEE HASSAN VOLLEYBALL PLAYER Ot 793.11 SOLITARY PULMONARY NODULE 09/29/2017 KAYCEE HASSAN VOLLEYBALL PLAYER Ot V45.81 AORTOCORONARY BYPASS 09/29/2017 KAYCEE HASSAN VOLLEYBALL PLAYER Ot V58.67 LONG-TERM (CURRENT) USE OF INSULIN 09/29/2017 KAYCEE HASSAN VOLLEYBALL PLAYER Ot V58.69 OTH MED,LT,CURRENT USE 09/29/2017 KAYCEE HASSAN S VOLLEYBALL PLAYER Ot 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 09/29/2017 KAYCEE HASSAN S VOLLEYBALL PLAYER Ot 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 09/29/2017 KAYCEE HASSAN S VOLLEYBALL PLAYER Ot 250.00 DIAB OLU WO COMPL, TYPE II OR UNSPEC TY 09/29/2017 KAYCEE HASSAN S VOLLEYBALL PLAYER Ot 305.1 TOBACCO USE DISORDER 09/29/2017 KAYCEE HASSAN S VOLLEYBALL PLAYER Ot 401.9 HYPERTENSION NOS 09/29/2017 KAYCEE HASSAN S VOLLEYBALL PLAYER Ot 414.00 CORON ATHEROSCLER NOS TYPE VESSEL, NATIV 09/29/2017 KAYCEE HASSAN VOLLEYBALL PLAYER Ot 4 96 CHR AIRWAY OBSTRUCT NEC 09/29/2017 KAYCEE HASSAN VOLLEYBALL PLAYER Ot 793.11 SOLITARY PULMONARY NODULE 09/29/2017 KAYCEE HASSAN VOLLEYBALL PLAYER Ot V45.81 AORTOCORONARY BYPASS 09/29/2017 KAYCEE HASSAN VOLLEYBALL PLAYER Ot V58.67 LONG-TERM (CURRENT) USE OF INSULIN 09/29/2017 KAYCEE HASSAN VOLLEYBALL PLAYER Ot V58.69 OT MED,LT,CURRENT USE 09/29/2017 KAYCEE HASSAN VOLLEYBALL PLAYER Ot 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 4 HYPERLIPIDEMIA NEC/NOS 09/29/2017 KYLIE TAYLOR MD Ot 401. 9 HYPERTENSION NOS 09/29/2017 KYLIE TAYLOR MD Ot 414. 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 09/29/2017 KAYCEE HASSAN VOLLEYBALL PLAYER Ot 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 09/29/2017 KAYCEE HASSAN S VOLLEYBALL PLAYER Ot 250.00 DIAB OLU WO COMPL, TYPE II OR UNSPEC TY 09/29/2017 KAYCEE HASSAN S VOLLEYBALL PLAYER Ot 305.1 TOBACCO USE DISORDER 09/29/2017 KAYCEE HASSAN S VOLLEYBALL PLAYER Ot 401.9 HYPERTENSION NOS 09/29/2017 KAYCEE HASSAN S VOLLEYBALL PLAYER Ot 414.00 CORON ATHEROSCLER NOS TYPE VESSEL, NATIV 09/29/2017 KAYCEE HASSAN VOLLEYBALL PLAYER Ot 4 96 CHR AIRWAY OBSTRUCT NEC 09/29/2017 KAYCEE HASSAN S VOLLEYBALL PLAYER Ot 793.11 SOLITARY PULMONARY NODULE 09/29/2017 KAYCEE HASSAN VOLLEYBALL PLAYER Ot V45.81 AORTOCORONARY BYPASS 09/29/2017 KAYCEE HASSAN VOLLEYBALL PLAYER Ot V58.67 LONG-TERM (CURRENT) USE OF INSULIN 09/29/2017 KAYCEE HASSAN VOLLEYBALL PLAYER Ot V58.69 OTH MED,LT,CURRENT USE 09/29/2017 KAYCEE HASSAN VOLLEYBALL PLAYER Ot 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 09/29/2017 KAYCEE HASSAN S VOLLEYBALL PLAYER Ot 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 09/29/2017 KAYCEE HASSAN VOLLEYBALL PLAYER Ot 250.00 DIAB OLU WO COMPL, TYPE II OR UNSPEC TY 09/29/2017 KAYCEE HASSAN S VOLLEYBALL PLAYER Ot 305.1 TOBACCO USE DISORDER 09/29/2017 KAYCEE HASSAN VOLLEYBALL PLAYER Ot 401.9 HYPERTENSION NOS 09/29/2017 KAYCEE HASSAN VOLLEYBALL PLAYER Ot 414.00 CORON ATHEROSCLER NOS TYPE VESSEL, NATIV 09/29/2017 KAYCEE HASSAN VOLLEYBALL PLAYER Ot 4 96 CHR AIRWAY OBSTRUCT NEC 09/29/2017 KAYCEE HASSAN VOLLEYBALL PLAYER Ot 793.11 SOLITARY PULMONARY NODULE 09/29/2017 KAYCEE HASSAN VOLLEYBALL PLAYER Ot V45.81 AORTOCORONARY BYPASS 09/29/2017 KAYCEE HASSAN VOLLEYBALL PLAYER Ot V58.67 LONG-TERM (CURRENT) USE OF INSULIN 09/29/2017 KYACEE HASSAN VOLLEYBALL PLAYER Ot V58.69 OTH MED,LT,CURRENT USE 09/29/2017 KAYCEE HASSAN VOLLEYBALL PLAYER Ot V58.81 FIT/ADJ VASCULAR CATHETER 09/29/2017 KAYCEE HASSAN S VOLLEYBALL PLAYER Ot 141.9 MALIG HILARIO TONGUE NOS 09/29/2017 KAYCEE HASSAN S VOLLEYBALL PLAYER Ot 793.11 SOLITARY PULMONARY NODULE 09/29/2017 Ot 786.6 CHES T SWELLING/MASS/LUMP 09/29/2017 Ot V72.63 PRE -PROCEDURAL LABORATORY EXAMINATION 09/29/2017 Ot V72.81 HAXJ-SHX-[place] CARDIOVASCULAR 09/29/2017 Ot V72.83 EXA M PRE- OPERATIVE NEC 09/29/2017 DARIAN JESSICA MD Ot 162. 9 MAL HILARIO BRONCH/LUNG NOS 09/29/2017 DARIAN JESSICA MD Ot 414. 01 CORONARY ATHEROSCLEROSIS OF [place] CORON 09/29/2017 DARIAN JESSICA MD Ot 782. 3 EDEMA 09/29/2017 SALOME STEVE Ot 793.11 SOLITARY PULMONARY NODULE 09/29/2017 KYLIE TAYLOR MD Ot 250. 00 DIAB OLU WO COMPL, TYPE II OR UNSPEC TY 09/29/2017 KYLIE TAYLOR MD Ot 401. 9 HYPERTENSION NOS 09/29/2017 KYLIE TAYLOR MD Ot 414. 00 CORON ATHEROSCLER NOS TYPE VESSEL, NATIV 09/29/2017 KYLIE TAYLOR MD Ot 428. 0 CONGESTIVE HEART FAILURE NOS 09/29/2017 KYLIE TAYLOR MD Ot V58. 67 LONG-TERM (CURRENT) USE OF INSULIN 09/29/2017 KAYCEE HASSAN VOLLEYBALL PLAYER Ot 162.9 MAL HILARIO BRONCH/LUNG NOS 09/29/2017 KAYCEE HASSAN VOLLEYBALL PLAYER Ot C34.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 09/29/2017 KAYCEE HASSAN VOLLEYBALL PLAYER Ot C32.1 MALIGNANT NEOPLASM OF SUPRAGLOTTIS 09/29/2017 KAYCEE HASSANP Ot Z12.31 ENCNTR SCREEN MAMMOGRAM FOR MALIGNANT NE 09/29/2017 KAYCEE HASSAN VOLLEYBALL PLAYER Ot C32.1 MALIGNANT NEOPLASM OF SUPRAGLOTTIS 09/29/2017 LILLY LEE DO Ot Z01.818 ENCOUNTER FOR OTHER PREPROCEDURAL EXAMIN 09/29/2017 SALOME STEVE Ot C32.1 MALIGNANT NEOPLASM OF SUPRAGLOTTIS 09/29/2017 LILIAN TREJO DO Ot C32. 1 MALIGNANT NEOPLASM OF SUPRAGLOTTIS 09/29/2017 LILIAN TREJO DO Ot C34. 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 NEOPLASM OF UPPER LOBE, LEFT B 09/29/2017 LILIAN TREJO DO Ot C32. 1 MALIGNANT NEOPLASM OF SUPRAGLOTTIS 09/29/2017 LILIAN TREJO DO Ot C34. 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 NEOPLASM OF UPPER LOBE, LEFT B 09/29/2017 KAYCEE HASSANP Ot C32.1 MALIGNANT NEOPLASM OF SUPRAGLOTTIS 09/29/2017 KAYCEE HASSAN VOLLEYBALL PLAYER Ot C34.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 NEOPLASM OF UPPER LOBE, LEFT B 09/29/2017 KAYCEE HASSANP Ot M25.552 PAIN IN LEFT HIP 09/29/2017 ANAIS ANGULO MD Ot C32.1 MALIGNANT NEOPLASM OF SUPRAGLOTTIS 09/29/2017 ANAIS ANGULO MD Ot Z09 ENCNTR FOR F/U EXAM AFT TRTMT FOR COND O 09/29/2017 ANAIS ANGULO MD Ot Z96.8 9 PRESENCE OF OTHER SPECIFIED FUNCTIONAL I 09/29/2017 SERGEI CUTLER, STEF Arriola Ot C32 .1 MALIGNANT NEOPLASM OF SUPRAGLOTTIS 09/29/2017 ROBERTO CLANCY Ot Z12.31 ENCNTR SCREEN MAMMOGRAM FOR MALIGNANT NE 09/29/2017 KAYCEE HASSAN VOLLEYBALL PLAYER Ot C32.1 MALIGNANT NEOPLASM OF SUPRAGLOTTIS 09/29/2017 KAYCEE HASSAN VOLLEYBALL PLAYER Ot C34.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 NEOPLASM OF UPPER LOBE, LEFT B 09/29/2017 KAYCEE HASSAN VOLLEYBALL PLAYER Ot C32.1 MALIGNANT NEOPLASM OF SUPRAGLOTTIS 09/29/2017 KAYCEE HASSAN VOLLEYBALL PLAYER Ot C34.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 NEOPLASM OF UPPER LOBE, LEFT B 09/29/2017 THEODORA ANGELES MD Ot C32.1 MALIGNANT NEOPLASM OF SUPRAGLOTTIS 09/29/2017 THEODORA ANGELES MD Ot C34.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 NEOPLASM OF UPPER LOBE, LEFT B 09/29/2017 THEODORA ANGELES MD Ot E11.43 TYPE 2 DIABETES W DIABETIC AUTONOMIC (PO 09/29/2017 THEODORA ANGELES MD Ot E78.5 HYPERLIPIDEMIA, UNSPECIFIED 09/29/2017 THEODORA ANGELES MD Ot E83.42 HYPOMAGNESEMIA 09/29/2017 THEODORA ANGELES MD Ot F17.210 NICOTINE DEPENDENCE, CIGARETTES, UNCOMPL 09/29/2017 THEODORA ANGELES MD Ot I10 ESSENTIAL (PRIMARY) HYPERTENSION 09/29/2017 THEODORA ANGELES MD Ot I25.10 ATHSCL HEART DISEASE OF [place] CORONARY 09/29/2017 THEODORA ANGELES MD Ot J43.9 EMPHYSEMA, UNSPECIFIED 09/29/2017 THEODORA ANGELES MD Ot Z45.2 ENCOUNTER FOR ADJUSTMENT AND MANAGEMENT 09/29/2017 THEODORA ANGELES MD Ot Z79.899 OTHER EXPEDITER CLERK (CURRENT) DRUG THERAPY 09/29/2017 THEODORA ANGELES MD Ot Z92.21 PERSONAL HISTORY OF ANTINEOPLASTIC CHEMO 09/29/2017 THEODORA ANGELES MD Ot Z92.3 PERSONAL HISTORY OF IRRADIATION 09/29/2017 THEODORA ANGELES MD Ot C32.1 MALIGNANT NEOPLASM OF SUPRAGLOTTIS 09/29/2017 THEODORA ANGELES MD Ot C34.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 NEOPLASM OF [place]PPER [place], LEFT B 09/29/2017 THEODORA ANGELES MD Ot E11.43 TYPE 2 DIABETES W DIABETIC AUTONOMIC (PO 09/29/2017 THEODORA ANGELES MD Ot E78.5 HYPERLIPIDEMIA, UNSPECIFIED 09/29/2017 THEODORA ANGELES MD Ot E83.42 HYPOMAGNESEMIA 09/29/2017 THEODORA ANGELES MD Ot F17.210 NICOTINE DEPENDENCE, CIGARETTES, UNCOMPL 09/29/2017 THEODORA ANGELES MD Ot I10 ESSENTIAL (PRIMARY) HYPERTENSION 09/29/2017 THEODORA ANGELES MD Ot I25.10 ATHSCL HEART DISEASE OF [place] CORONARY 09/29/2017 THEODORA ANGELES MD Ot J43.9 EMPHYSEMA, UNSPECIFIED 09/29/2017 THEODORA ANGELES MD Ot Z45.2 ENCOUNTER FOR ADJUSTMENT AND MANAGEMENT 09/29/2017 THEODORA ANGELES MD Ot Z79.899 OTHER EXPEDITER CLERK (CURRENT) DRUG THERAPY 09/29/2017 THEODORA ANGELES MD Ot Z92.21 PERSONAL HISTORY OF ANTINEOPLASTIC CHEMO 09/29/2017 THEODORA ANGELES MD Ot Z92.3 PERSONAL HISTORY OF IRRADIATION 10/02/2017 NALINI JOHNS DO S Ot 246.2 CYST OF THYROID 10/02/2017 NALINI JOHNS DO S Ot 787.20 DYSPHAGIA, UNSPECIFIED 10/02/2017 STEF MAI MD Ot 241 .0 NONTOX UNINODULAR GOITER 10/02/2017 STEF MAI MD Ot 492 .8 EMPHYSEMA NEC 10/02/2017 STEF MAI MD Ot 784 .2 SWELLING IN HEAD NECK 10/02/2017 STEF MAI MD Ot 785 .6 ENLARGEMENT LYMPH NODES 10/02/2017 STEF MAI MD Ot 787.20 DYSPHAGIA, UNSPECIFIED 10/02/2017 STEF MAI MD Ot 240 .9 GOITER NOS 10/02/2017 STEF MAI MD Ot 780.79 OTH MALAISE FATIGUE 10/02/2017 STEF MAI MD Ot 784.42 DYSPHONIA 10/02/2017 JAMES CUTLER, ALBA Zamora Ot 401. 9 HYPERTENSION NOS 10/02/2017 JAMES CUTLER, ALBA Zamora Ot 414. 00 CORON ATHEROSCLER NOS TYPE VESSEL, NATIV 10/02/2017 JAMES CUTLER, ALBA Zamora Ot 794. 30 ABN CARDIOVASC STUDY NOS 10/02/2017 SHARLENE CUTLER, MAGAN E Ot 161.1 MALIG HILARIO SUPRAGLOTTIS 10/02/2017 LEE DO, LILLY D Ot 161. 1 MALIG HILARIO SUPRAGLOTTIS 10/02/2017 LEE DO, LILLY D Ot V72. 63 PRE-PROCEDURAL LABORATORY EXAMINATION 10/02/2017 LEE DO, LILLY D Ot V72. 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 10/02/2017 KAYCEE HASSAN S VOLLEYBALL PLAYER Ot 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 10/02/2017 KAYCEE HASSAN S VOLLEYBALL PLAYER Ot 250.00 DIAB OLU WO COMPL, TYPE II OR UNSPEC TY 10/02/2017 KAYCEE HASSAN S VOLLEYBALL PLAYER Ot 305.1 TOBACCO USE DISORDER 10/02/2017 KAYCEE HASSAN S VOLLEYBALL PLAYER Ot 401.9 HYPERTENSION NOS 10/02/2017 KAYCEE HASSAN S VOLLEYBALL PLAYER Ot 414.00 CORON ATHEROSCLER NOS TYPE VESSEL, NATIV 10/02/2017 KAYCEE HASSAN S VOLLEYBALL PLAYER Ot 793.11 SOLITARY PULMONARY NODULE 10/02/2017 KAYCEE HASSAN S VOLLEYBALL PLAYER Ot V45.81 AORTOCORONARY BYPASS 10/02/2017 KAYCEE HASSAN S VOLLEYBALL PLAYER Ot V58.67 LONG-TERM (CURRENT) USE OF INSULIN 10/02/2017 KAYCEE HASSAN S VOLLEYBALL PLAYER Ot V58.69 OTH MED,LT,CURRENT USE 10/02/2017 KAYCEE HASSAN S VOLLEYBALL PLAYER Ot 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 10/02/2017 KAYCEE HASSAN S VOLLEYBALL PLAYER Ot 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 10/02/2017 KAYCEE HASSAN S VOLLEYBALL PLAYER Ot 250.00 DIAB OLU WO COMPL, TYPE II OR UNSPEC TY 10/02/2017 KAYCEE HASSAN S VOLLEYBALL PLAYER Ot 305.1 TOBACCO USE DISORDER 10/02/2017 KAYCEE HASSAN S VOLLEYBALL PLAYER Ot 401.9 HYPERTENSION NOS 10/02/2017 HASSAN, HILAH S VOLLEYBALL PLAYER Ot 414.00 CORON ATHEROSCLER NOS TYPE VESSEL, NATIV 10/02/2017 TONJA HASSANAH S VOLLEYBALL PLAYER Ot 793.11 SOLITARY PULMONARY NODULE 10/02/2017 KAYCEE HASSAN S VOLLEYBALL PLAYER Ot V45.81 AORTOCORONARY BYPASS 10/02/2017 KAYCEE HASSAN S VOLLEYBALL PLAYER Ot V58.67 LONG-TERM (CURRENT) USE OF INSULIN 10/02/2017 TONJA HASSANAH S VOLLEYBALL PLAYER Ot V58.69 OTH MED,LT,CURRENT USE 10/02/2017 SONYA HILAH S VOLLEYBALL PLAYER Ot 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 10/02/2017 HASSAN HILAH S VOLLEYBALL PLAYER Ot 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 10/02/2017 HASSAN HILAH S VOLLEYBALL PLAYER Ot 250.00 DIAB OLU WO COMPL, TYPE II OR UNSPEC TY 10/02/2017 HASSAN HILAH S VOLLEYBALL PLAYER Ot 305.1 TOBACCO USE DISORDER 10/02/2017 TONJA HASSANAH S VOLLEYBALL PLAYER Ot 401.9 HYPERTENSION NOS 10/02/2017 TONJA HASSANAH S VOLLEYBALL PLAYER Ot 414.00 CORON ATHEROSCLER NOS TYPE VESSEL, NATIV 10/02/2017 TONJA HASSANAH S VOLLEYBALL PLAYER Ot 793.11 SOLITARY PULMONARY NODULE 10/02/2017 KAYCEE HASSAN S VOLLEYBALL PLAYER Ot V45.81 AORTOCORONARY BYPASS 10/02/2017 TONJA HASSANAH S VOLLEYBALL PLAYER Ot V58.67 LONG-TERM (CURRENT) USE OF INSULIN 10/02/2017 KAYCEE HASSAN S VOLLEYBALL PLAYER Ot V58.69 OTH MED,LT,CURRENT USE 10/02/2017 TONJA HASSANAH S VOLLEYBALL PLAYER Ot 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 10/02/2017 HASSAN HILAH S VOLLEYBALL PLAYER Ot 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 10/02/2017 HASSAN HILAH S VOLLEYBALL PLAYER Ot 250.00 DIAB OLU WO COMPL, TYPE II OR UNSPEC TY 10/02/2017 HASSAN HILAH S VOLLEYBALL PLAYER Ot 305.1 TOBACCO USE DISORDER 10/02/2017 HASSAN HILAH S VOLLEYBALL PLAYER Ot 401.9 HYPERTENSION NOS 10/02/2017 HASSAN HILAH S VOLLEYBALL PLAYER Ot 414.00 CORON ATHEROSCLER NOS TYPE VESSEL, NATIV 10/02/2017 KAYCEE HASSAN S VOLLEYBALL PLAYER Ot 793.11 SOLITARY PULMONARY NODULE 10/02/2017 TONJA HASSANAH S VOLLEYBALL PLAYER Ot V45.81 AORTOCORONARY BYPASS 10/02/2017 TONJA HASSANAH S VOLLEYBALL PLAYER Ot V58.67 LONG-TERM (CURRENT) USE OF INSULIN 10/02/2017 KAYCEE HASSAN S VOLLEYBALL PLAYER Ot V58.69 OTH MED,LT,CURRENT USE 10/02/2017 TONJA HASSANAH S VOLLEYBALL PLAYER Ot 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 10/02/2017 TONJA HASSANAH S VOLLEYBALL PLAYER Ot 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 10/02/2017 HASSAN, HILAH S VOLLEYBALL PLAYER Ot 250.00 DIAB OLU WO COMPL, TYPE II OR UNSPEC TY 10/02/2017 SONYA HILAH S VOLLEYBALL PLAYER Ot 305.1 TOBACCO USE DISORDER 10/02/2017 SONYA HILAH S VOLLEYBALL PLAYER Ot 401.9 HYPERTENSION NOS 10/02/2017 TONJA HASSANAH S VOLLEYBALL PLAYER Ot 414.00 CORON ATHEROSCLER NOS TYPE VESSEL, NATIV 10/02/2017 KAYCEE HASSAN S VOLLEYBALL PLAYER Ot 793.11 SOLITARY PULMONARY NODULE 10/02/2017 KAYCEE HASSAN S VOLLEYBALL PLAYER Ot V45.81 AORTOCORONARY BYPASS 10/02/2017 KAYCEE HASSAN S VOLLEYBALL PLAYER Ot V58.67 LONG-TERM (CURRENT) USE OF INSULIN 10/02/2017 TONJA HASSANAH S VOLLEYBALL PLAYER Ot V58.69 OTH MED,LT,CURRENT USE 10/02/2017 KAYCEE HASSAN S VOLLEYBALL PLAYER Ot 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 10/02/2017 SONYA HILAH S VOLLEYBALL PLAYER Ot 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 10/02/2017 HASSAN HILAH S VOLLEYBALL PLAYER Ot 250.00 DIAB OLU WO COMPL, TYPE II OR UNSPEC TY 10/02/2017 HASSAN HILAH S VOLLEYBALL PLAYER Ot 305.1 TOBACCO USE DISORDER 10/02/2017 HASSAN HILAH S VOLLEYBALL PLAYER Ot 401.9 HYPERTENSION NOS 10/02/2017 HASSAN HILAH S VOLLEYBALL PLAYER Ot 414.00 CORON ATHEROSCLER NOS TYPE VESSEL, NATIV 10/02/2017 TONJA HASSANAH S VOLLEYBALL PLAYER Ot 4 96 CHR AIRWAY OBSTRUCT NEC 10/02/2017 KAYCEE HASSAN S VOLLEYBALL PLAYER Ot 793.11 SOLITARY PULMONARY NODULE 10/02/2017 KAYCEE HASSAN S VOLLEYBALL PLAYER Ot V45.81 AORTOCORONARY BYPASS 10/02/2017 KAYCEE HASSAN S VOLLEYBALL PLAYER Ot V58.67 LONG-TERM (CURRENT) USE OF INSULIN 10/02/2017 KAYCEE HASSAN S VOLLEYBALL PLAYER Ot V58.69 OTH MED,LT,CURRENT USE 10/02/2017 POWER SALOME N Ot 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 10/02/2017 POWER PIOTRAN N Ot 496 CHR AIRWAY OBSTRUCT NEC 10/02/2017 SALOME STEVE N Ot 787.20 DYSPHAGIA, UNSPECIFIED 10/02/2017 POWER SALOME N Ot 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 10/02/2017 ZAK BUCIO VOLLEYBALL PLAYER Ot 250.02 DIAB OLU WO COMPL, TYPE II OR UNSPEC TY 10/02/2017 KAYCEE HASSAN S VOLLEYBALL PLAYER Ot 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 10/02/2017 KAYCEE HASSAN S VOLLEYBALL PLAYER Ot 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 10/02/2017 KAYCEE HASSAN S VOLLEYBALL PLAYER Ot 250.00 DIAB OLU WO COMPL, TYPE II OR UNSPEC TY 10/02/2017 KAYCEE HASSAN S VOLLEYBALL PLAYER Ot 305.1 TOBACCO USE DISORDER 10/02/2017 KAYCEE HASSAN S VOLLEYBALL PLAYER Ot 401.9 HYPERTENSION NOS 10/02/2017 KAYCEE HASSAN S VOLLEYBALL PLAYER Ot 414.00 CORON ATHEROSCLER NOS TYPE VESSEL, NATIV 10/02/2017 KAYCEE HASSAN VOLLEYBALL PLAYER Ot 4 96 CHR AIRWAY OBSTRUCT NEC 10/02/2017 KAYCEE HASSAN VOLLEYBALL PLAYER Ot 793.11 SOLITARY PULMONARY NODULE 10/02/2017 KAYCEE HASSAN S VOLLEYBALL PLAYER Ot V45.81 AORTOCORONARY BYPASS 10/02/2017 KAYCEE HASSAN S VOLLEYBALL PLAYER Ot V58.67 LONG-TERM (CURRENT) USE OF INSULIN 10/02/2017 KAYCEE HASSAN S VOLLEYBALL PLAYER Ot V58.69 OTH MED,LT,CURRENT USE 10/02/2017 KAYCEE HASSAN S VOLLEYBALL PLAYER Ot 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 10/02/2017 KAYCEE HASSAN S VOLLEYBALL PLAYER Ot 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 10/02/2017 KAYCEE HASSAN S VOLLEYBALL PLAYER Ot 250.00 DIAB OLU WO COMPL, TYPE II OR UNSPEC TY 10/02/2017 KAYCEE HASSAN S VOLLEYBALL PLAYER Ot 305.1 TOBACCO USE DISORDER 10/02/2017 KAYCEE HASSAN S VOLLEYBALL PLAYER Ot 401.9 HYPERTENSION NOS 10/02/2017 KAYCEE HASSAN S VOLLEYBALL PLAYER Ot 414.00 CORON ATHEROSCLER NOS TYPE VESSEL, NATIV 10/02/2017 KAYCEE HASSAN S VOLLEYBALL PLAYER Ot 4 96 CHR AIRWAY OBSTRUCT NEC 10/02/2017 KAYCEE HASSAN S VOLLEYBALL PLAYER Ot 793.11 SOLITARY PULMONARY NODULE 10/02/2017 KAYCEE HASSAN VOLLEYBALL PLAYER Ot V45.81 AORTOCORONARY BYPASS 10/02/2017 KAYCEE HASSAN VOLLEYBALL PLAYER Ot V58.67 LONG-TERM (CURRENT) USE OF INSULIN 10/02/2017 KAYCEE HASSAN S VOLLEYBALL PLAYER Ot V58.69 OT MED,LT,CURRENT USE 10/02/2017 KAYCEE HASSAN VOLLEYBALL PLAYER Ot 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 4 HYPERLIPIDEMIA NEC/NOS 10/02/2017 KYLIE TAYLOR MD Ot 401. 9 HYPERTENSION NOS 10/02/2017 KYLIE TAYLOR MD Ot 414. 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 10/02/2017 KAYCEE HASSAN S VOLLEYBALL PLAYER Ot 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 10/02/2017 KAYCEE HASSAN S VOLLEYBALL PLAYER Ot 250.00 DIAB OLU WO COMPL, TYPE II OR UNSPEC TY 10/02/2017 KAYCEE HASSAN S VOLLEYBALL PLAYER Ot 305.1 TOBACCO USE DISORDER 10/02/2017 KAYCEE HASSAN S VOLLEYBALL PLAYER Ot 401.9 HYPERTENSION NOS 10/02/2017 KAYCEE HASSAN S VOLLEYBALL PLAYER Ot 414.00 CORON ATHEROSCLER NOS TYPE VESSEL, NATIV 10/02/2017 KAYCEE HASSAN VOLLEYBALL PLAYER Ot 4 96 CHR AIRWAY OBSTRUCT NEC 10/02/2017 KAYCEE HASSAN S VOLLEYBALL PLAYER Ot 793.11 SOLITARY PULMONARY NODULE 10/02/2017 KAYCEE HASSAN S VOLLEYBALL PLAYER Ot V45.81 AORTOCORONARY BYPASS 10/02/2017 KAYCEE HASSAN S VOLLEYBALL PLAYER Ot V58.67 LONG-TERM (CURRENT) USE OF INSULIN 10/02/2017 KAYCEE HASSAN S VOLLEYBALL PLAYER Ot V58.69 OTH MED,LT,CURRENT USE 10/02/2017 KAYCEE HASSAN VOLLEYBALL PLAYER Ot 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 10/02/2017 KAYCEE HASSAN S VOLLEYBALL PLAYER Ot 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 10/02/2017 KAYCEE HASSAN S VOLLEYBALL PLAYER Ot 250.00 DIAB OLU WO COMPL, TYPE II OR UNSPEC TY 10/02/2017 KAYCEE HASSAN VOLLEYBALL PLAYER Ot 305.1 TOBACCO USE DISORDER 10/02/2017 KAYCEE HASSAN VOLLEYBALL PLAYER Ot 401.9 HYPERTENSION NOS 10/02/2017 KAYCEE HASSAN VOLLEYBALL PLAYER Ot 414.00 CORON ATHEROSCLER NOS TYPE VESSEL, NATIV 10/02/2017 KAYCEE HASSAN VOLLEYBALL PLAYER Ot 4 96 CHR AIRWAY OBSTRUCT NEC 10/02/2017 KAYCEE HASSAN VOLLEYBALL PLAYER Ot 793.11 SOLITARY PULMONARY NODULE 10/02/2017 KAYCEE HASSAN VOLLEYBALL PLAYER Ot V45.81 AORTOCORONARY BYPASS 10/02/2017 KAYCEE HASSAN VOLLEYBALL PLAYER Ot V58.67 LONG-TERM (CURRENT) USE OF INSULIN 10/02/2017 KAYCEE HASSAN VOLLEYBALL PLAYER Ot V58.69 OTH MED,LT,CURRENT USE 10/02/2017 KAYCEE HASSAN S VOLLEYBALL PLAYER Ot V58.81 FIT/ADJ VASCULAR CATHETER 10/02/2017 KAYCEE HASSAN S VOLLEYBALL PLAYER Ot 141.9 MALIG HILARIO TONGUE NOS 10/02/2017 KAYCEE HASSAN S VOLLEYBALL PLAYER Ot 793.11 SOLITARY PULMONARY NODULE 10/02/2017 Ot 786.6 CHES T SWELLING/MASS/LUMP 10/02/2017 Ot V72.63 PRE -PROCEDURAL LABORATORY EXAMINATION 10/02/2017 Ot V72.81 [id number] CARDIOVASCULAR 10/02/2017 Ot V72.83 EXA M PRE- OPERATIVE NEC 10/02/2017 DARIAN JESSICA MD Ot 162. 9 MAL HILARIO BRONCH/LUNG NOS 10/02/2017 DARIAN JESSICA MD Ot 414. 01 CORONARY ATHEROSCLEROSIS OF [place] CORON 10/02/2017 DARIAN JESSICA MD Ot 782. 3 EDEMA 10/02/2017 SALOME STEVE Ot 793.11 SOLITARY PULMONARY NODULE 10/02/2017 KYLIE TAYLOR MD Ot 250. 00 DIAB OLU WO COMPL, TYPE II OR UNSPEC TY 10/02/2017 KYLIE TAYLOR MD Ot 401. 9 HYPERTENSION NOS 10/02/2017 KYLIE TAYLOR MD Ot 414. 00 CORON ATHEROSCLER NOS TYPE VESSEL, NATIV 10/02/2017 KYLIE TAYLOR MD Ot 428. 0 CONGESTIVE HEART FAILURE NOS 10/02/2017 KYLIE TAYLOR MD Ot V58. 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 1 MALIGNANT NEOPLASM OF SUPRAGLOTTIS 10/02/2017 LILIAN TREJO DO Ot C34. 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 NEOPLASM OF UPPER LOBE, LEFT B 10/02/2017 LILIAN TREJO DO Ot C32. 1 MALIGNANT NEOPLASM OF SUPRAGLOTTIS 10/02/2017 LILIAN TREJO DO Ot C34. 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 NEOPLASM OF UPPER LOBE, LEFT B 10/02/2017 HASSANKAYCEE Marinelli Yves VOLLEYBALL PLAYER Ot C32.1 MALIGNANT NEOPLASM OF SUPRAGLOTTIS 10/02/2017 KAYCEE HASSAN VOLLEYBALL PLAYER Ot C34.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 NEOPLASM OF UPPER LOBE, LEFT B 10/02/2017 SONYA KAYCEE Marinelli VOLLEYBALL PLAYER Ot M25.552 PAIN IN LEFT HIP 10/02/2017 ANAIS ANGULO MD Ot C32.1 MALIGNANT NEOPLASM OF SUPRAGLOTTIS 10/02/2017 ANAIS ANGULO MD Ot Z09 ENCNTR FOR F/U EXAM AFT TRTMT FOR COND O 10/02/2017 ANAIS ANGULO MD Ot Z96.8 9 PRESENCE OF OTHER SPECIFIED FUNCTIONAL I 10/02/2017 SERGEI CUTLER, STEF Arriola Ot C32 .1 MALIGNANT NEOPLASM OF SUPRAGLOTTIS 10/02/2017 ROBERTO CLANCY VOLLEYBALL PLAYER Ot Z12.31 ENCNTR SCREEN MAMMOGRAM FOR MALIGNANT NE 10/02/2017 KAYCEE HASSAN VOLLEYBALL PLAYER Ot 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 OF SUPRAGLOTTIS 10/02/2017 KAYCEE HASSAN VOLLEYBALL PLAYER Ot C34.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 NEOPLASM OF UPPER LOBE, LEFT B 10/02/2017 KAYCEE HASSANP Ot C32.1 MALIGNANT NEOPLASM OF SUPRAGLOTTIS 10/02/2017 KAYCEE HASSANP Ot C34.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 NEOPLASM OF UPPER LOBE, LEFT B 10/02/2017 THEODORA ANGELES MD Ot C32.1 MALIGNANT NEOPLASM OF SUPRAGLOTTIS 10/02/2017 THEODORA ANGELES MD Ot C34.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 NEOPLASM OF UPPER LOBE, LEFT B 10/02/2017 THEODORA ANGELES MD Ot E11.43 TYPE 2 DIABETES W DIABETIC AUTONOMIC (PO 10/02/2017 THEODORA ANGELES MD Ot E78.5 HYPERLIPIDEMIA, UNSPECIFIED 10/02/2017 THEODORA ANGELES MD Ot E83.42 HYPOMAGNESEMIA 10/02/2017 THEODORA ANGELES MD Ot F17.210 NICOTINE DEPENDENCE, CIGARETTES, UNCOMPL 10/02/2017 THEODORA ANGELES MD Ot I10 ESSENTIAL (PRIMARY) HYPERTENSION 10/02/2017 THEODORA ANGELES MD Ot I25.10 ATHSCL HEART DISEASE OF [place] CORONARY 10/02/2017 THEODORA ANGELES MD Ot J43.9 EMPHYSEMA, UNSPECIFIED 10/02/2017 THEODORA ANGELES MD Ot Z45.2 ENCOUNTER FOR ADJUSTMENT AND MANAGEMENT 10/02/2017 THEODORA ANGELES MD Ot Z79.899 OTHER RETIREMENT (CURRENT) DRUG THERAPY 10/02/2017 THEODORA ANGELES MD Ot Z92.21 PERSONAL HISTORY OF ANTINEOPLASTIC CHEMO 10/02/2017 THEODORA ANGELES MD Ot Z92.3 PERSONAL HISTORY OF IRRADIATION 10/09/2017 POWER, SALOME Grady Ot C32.1 MALIGNANT NEOPLASM OF SUPRAGLOTTIS 10/09/2017 POWER, SALOME Grady Ot C34.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 NEOPLASM OF UPPER LOBE, LEFT B 10/09/2017 POWER, SALOME Grady Ot R74.8 ABNORMAL LEVELS OF OTHER SERUM ENZYMES 10/22/2017 THEODORA ANGELES MD Ot C32.1 MALIGNANT NEOPLASM OF SUPRAGLOTTIS 10/22/2017 THEODORA ANGELES MD Ot C34.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 NEOPLASM OF UPPER LOBE, LEFT B 10/22/2017 THEODORA ANGELES MD Ot E11.43 TYPE 2 DIABETES W DIABETIC AUTONOMIC (PO 10/22/2017 THEODORA ANGELES MD Ot E78.5 HYPERLIPIDEMIA, UNSPECIFIED 10/22/2017 THEODORA ANGELES MD Ot E83.42 HYPOMAGNESEMIA 10/22/2017 THEODORA ANGELES MD Ot F17.210 NICOTINE DEPENDENCE, CIGARETTES, UNCOMPL 10/22/2017 THEODORA ANGELES MD Ot I10 ESSENTIAL (PRIMARY) HYPERTENSION 10/22/2017 THEODORA ANGELES MD Ot I25.10 ATHSCL HEART DISEASE OF [place] CORONARY 10/22/2017 THEODORA ANGELES MD Ot J43.9 EMPHYSEMA, UNSPECIFIED 10/22/2017 THEODORA ANGELES MD Ot Z45.2 ENCOUNTER FOR ADJUSTMENT AND MANAGEMENT 10/22/2017 THEODORA ANGELES MD Ot Z79.899 OTHER EXPEDITER CLERK (CURRENT) DRUG THERAPY 10/22/2017 THEODORA ANGELES MD Ot Z92.21 PERSONAL HISTORY OF ANTINEOPLASTIC CHEMO 10/22/2017 THEODORA ANGELES MD Ot Z92.3 PERSONAL HISTORY OF IRRADIATION 12/31/2017 THEODORA ANGELES MD Ot C32.1 MALIGNANT NEOPLASM OF SUPRAGLOTTIS 12/31/2017 THEODORA ANGELES MD Ot C34.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 NEOPLASM OF UPPER LOBE, LEFT B 12/31/2017 THEODORA ANGELES MD Ot E11.43 TYPE 2 DIABETES W DIABETIC AUTONOMIC (PO 12/31/2017 THEODORA ANGELES MD Ot E78.5 HYPERLIPIDEMIA, UNSPECIFIED 12/31/2017 THEODORA ANGELES MD Ot E83.42 HYPOMAGNESEMIA 12/31/2017 THEODORA ANGELES MD Ot F17.210 NICOTINE DEPENDENCE, CIGARETTES, UNCOMPL 12/31/2017 THEODORA ANGELES MD Ot I10 ESSENTIAL (PRIMARY) HYPERTENSION 12/31/2017 THEODORA ANGELES MD Ot I25.10 ATHSCL HEART DISEASE OF [place] CORONARY 12/31/2017 THEODORA ANGELES MD Ot J43.9 EMPHYSEMA, UNSPECIFIED 12/31/2017 THEODORA ANGELES MD Ot Z45.2 ENCOUNTER FOR ADJUSTMENT AND MANAGEMENT 12/31/2017 THEODORA ANGELES MD Ot Z79.899 OTHER RETIREMENT (CURRENT) DRUG THERAPY 12/31/2017 THEODORA ANGELES MD Ot Z92.21 PERSONAL HISTORY OF ANTINEOPLASTIC CHEMO 12/31/2017 THEODORA ANGELES MD Ot Z92.3 PERSONAL HISTORY OF IRRADIATION 01/01/2018 THEODORA ANGELES MD Ot C32.1 MALIGNANT NEOPLASM OF SUPRAGLOTTIS 01/01/2018 THEODORA ANGELES MD Ot C34.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 NEOPLASM OF UPPER [place], LEFT B 01/01/2018 THEODORA ANGELES MD Ot E11.43 TYPE 2 DIABETES W DIABETIC AUTONOMIC (PO 01/01/2018 THEODORA ANGELES MD Ot E78.5 HYPERLIPIDEMIA, UNSPECIFIED 01/01/2018 THEODORA ANGELES MD Ot E83.42 HYPOMAGNESEMIA 01/01/2018 THEODORA ANGELES MD Ot F17.210 NICOTINE DEPENDENCE, CIGARETTES, UNCOMPL 01/01/2018 THEODORA ANGELES MD Ot I10 ESSENTIAL (PRIMARY) HYPERTENSION 01/01/2018 THEODORA ANGELES MD Ot I25.10 ATHSCL HEART DISEASE OF [place] CORONARY 01/01/2018 THEODORA ANGELES MD Ot J43.9 EMPHYSEMA, UNSPECIFIED 01/01/2018 THEODORA ANGELES MD Ot Z45.2 ENCOUNTER FOR ADJUSTMENT AND MANAGEMENT 01/01/2018 THEODORA ANGELES MD Ot Z79.899 OTHER RETIREMENT (CURRENT) DRUG THERAPY 01/01/2018 THEODORA ANGELES MD Ot Z92.21 PERSONAL HISTORY OF ANTINEOPLASTIC CHEMO 01/01/2018 THEODORA ANGELES MD Ot Z92.3 PERSONAL HISTORY OF IRRADIATION 02/17/2018 NALINI JOHNS DO Ot 246.2 CYST OF THYROID 02/17/2018 ORENDER DO, NALINI S Ot 787.20 DYSPHAGIA, UNSPECIFIED 02/17/2018 STEF MAI MD Ot 241 .0 NONTOX UNINODULAR GOITER 02/17/2018 STEF MAI MD Ot 492 .8 EMPHYSEMA NEC 02/17/2018 STEF MAI MD Ot 784 .2 SWELLING IN HEAD NECK 02/17/2018 STEF MAI MD Ot 785 .6 ENLARGEMENT LYMPH NODES 02/17/2018 STEF MAI MD Ot 787.20 DYSPHAGIA, UNSPECIFIED 02/17/2018 STEF MAI MD Ot 240 .9 GOITER NOS 02/17/2018 STEF MAI MD Ot 780.79 OTH MALAISE FATIGUE 02/17/2018 STEF MAI MD Ot 784.42 DYSPHONIA 02/17/2018 ALBA RAMIREZ MD Ot 401. 9 HYPERTENSION NOS 02/17/2018 ALBA RAMIREZ MD Ot 414. 00 CORON ATHEROSCLER NOS TYPE VESSEL, NATIV 02/17/2018 ALBA RAMIREZ MD Ot 794. 30 ABN CARDIOVASC STUDY NOS 02/17/2018 SHARLENE CUTLER, MAGAN E Ot 161.1 MALIG HILARIO SUPRAGLOTTIS 02/17/2018 LILLY LEE DO Ot 161. 1 MALIG HILARIO SUPRAGLOTTIS 02/17/2018 LILLY LEE DO Ot V72. 63 PRE-PROCEDURAL LABORATORY EXAMINATION 02/17/2018 LEELILLY SWENSON DO Ot V72. 84 EXAM PRE-OPERATIVE NOS 02/17/2018 KAYCEE HASSAN [employer] PLAYER Ot 161.1 MALIG HILARIO SUPRAGLOTTIS 02/17/2018 KAYCEE HASSAN [employer]ER Ot 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 02/17/2018 KAYCEE HASSAN [employer] Ot 250.00 DIAB OLU WO COMPL, TYPE II OR UNSPEC TY 02/17/2018 KAYCEE HASSAN [employer] Ot 305.1 TOBACCO USE DISORDER 02/17/2018 KAYCEE HASSAN [employer] Ot 401.9 HYPERTENSION NOS 02/17/2018 KAYCEE HASSAN [employer] Ot 414.00 CORON ATHEROSCLER NOS TYPE VESSEL, NATIV 02/17/2018 KAYCEE HASSAN [employer] Ot 793.11 SOLITARY PULMONARY NODULE 02/17/2018 KAYCEE HASSANP Ot V45.81 AORTOCORONARY BYPASS 02/17/2018 KAYCEE HASSAN S [employer] PLAYER Ot V58.67 LONG-TERM (CURRENT) USE OF INSULIN 02/17/2018 HASSANTONJAAH S [employer] PLAYER Ot V58.69 OTH MED,LT,CURRENT USE 02/17/2018 HASSAN, HILAH S [employer] PLAYER Ot 161.1 MALIG HILARIO SUPRAGLOTTIS 02/17/2018 HASSANTONJAAH S [employer]LEY[employer] PLAYER Ot 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 02/17/2018 HASSAN HILAH S [employer] PLAYER Ot 250.00 DIAB OLU WO COMPL, TYPE II OR UNSPEC TY 02/17/2018 HASSAN HILAH S [employer] PLAYER Ot 305.1 TOBACCO USE DISORDER 02/17/2018 HASSAN HILAH S [employer] PLAYER Ot 401.9 HYPERTENSION NOS 02/17/2018 HASSAN HILAH S [employer] PLAYER Ot 414.00 CORON ATHEROSCLER NOS TYPE VESSEL, NATIV 02/17/2018 HASSAN, HILAH S [employer] PLAYER Ot 793.11 SOLITARY PULMONARY NODULE 02/17/2018 TONJA HASSANAH S [employer] PLAYER Ot V45.81 AORTOCORONARY BYPASS 02/17/2018 HASSAN, HILAH S [employer] PLAYER Ot V58.67 LONG-TERM (CURRENT) USE OF INSULIN 02/17/2018 TONJA HASSANAH S [employer] PLAYER Ot V58.69 OTH MED,LT,CURRENT USE 02/17/2018 TONJA HASSANAH S [employer] PLAYER Ot 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 02/17/2018 TONJA HASSANAH S [employer] PLAYER Ot 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 02/17/2018 TONJA HASSANAH S [employer] PLAYER Ot 250.00 DIAB OLU WO COMPL, TYPE II OR UNSPEC TY 02/17/2018 SONYA HILAH S [employer] PLAYER Ot 305.1 TOBACCO USE DISORDER 02/17/2018 HASSAN HILAH S [employer] PLAYER Ot 401.9 HYPERTENSION NOS 02/17/2018 HASSAN HILAH S [employer] PLAYER Ot 414.00 CORON ATHEROSCLER NOS TYPE VESSEL, NATIV 02/17/2018 HASSAN HILAH S [employer] PLAYER Ot 793.11 SOLITARY PULMONARY NODULE 02/17/2018 SONYA HILAH S [employer] PLAYER Ot V45.81 AORTOCORONARY BYPASS 02/17/2018 SONYA HILAH S [employer] PLAYER Ot V58.67 LONG-TERM (CURRENT) USE OF INSULIN 02/17/2018 HASSANKAYCEE Marinelli S [employer]ER Ot V58.69 OTH MED,LT,CURRENT USE 02/17/2018 HASSAN, HILAH S [employer] PLAYER Ot 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 02/17/2018 HASSAN HILAH S [employer] PLAYER Ot 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 02/17/2018 HASSAN, HILAH S [employer] PLAYER Ot 250.00 DIAB OLU WO COMPL, TYPE II OR UNSPEC TY 02/17/2018 HASSAN HILAH S [employer]ER Ot 305.1 TOBACCO USE DISORDER 02/17/2018 HASSAN HILAH S [employer]ER Ot 401.9 HYPERTENSION NOS 02/17/2018 HASSAN, HILAH S [employer] PLAYER Ot 414.00 CORON ATHEROSCLER NOS TYPE VESSEL, NATIV 02/17/2018 HASSAN HILAH S [employer] PLAYER Ot 793.11 SOLITARY PULMONARY NODULE 02/17/2018 SONYA HILAH S [employer] PLAYER Ot V45.81 AORTOCORONARY BYPASS 02/17/2018 SONYA HILAH S [employer] PLAYER Ot V58.67 LONG-TERM (CURRENT) USE OF INSULIN 02/17/2018 HASSANTONJAAH S [employer] PLAYER Ot V58.69 OTH MED,LT,CURRENT USE 02/17/2018 HASSAN, HILAH S [employer] PLAYER Ot 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 02/17/2018 HASSAN HILAH S [employer] PLAYER Ot 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 02/17/2018 HASSAN HILAH S [employer] PLAYER Ot 250.00 DIAB OLU WO COMPL, TYPE II OR UNSPEC TY 02/17/2018 HASSANTONJAAH S [employer] PLAYER Ot 305.1 TOBACCO USE DISORDER 02/17/2018 HASSANTONJAAH S [employer] PLAYER Ot 401.9 HYPERTENSION NOS 02/17/2018 HASSAN HILAH S [employer] PLAYER Ot 414.00 CORON ATHEROSCLER NOS TYPE VESSEL, NATIV 02/17/2018 HASSAN HILAH S [employer] PLAYER Ot 793.11 SOLITARY PULMONARY NODULE 02/17/2018 HASSAN HILAH S [employer] PLAYER Ot V45.81 AORTOCORONARY BYPASS 02/17/2018 HASSAN HILAH S [employer] PLAYER Ot V58.67 LONG-TERM (CURRENT) USE OF INSULIN 02/17/2018 HASSAN HILAH S [employer] PLAYER Ot V58.69 OTH MED,LT,CURRENT USE 02/17/2018 KAYCEE HASSAN S [employer]ER Ot 161.1 MALIG HILARIO SUPRAGLOTTIS 02/17/2018 KAYCEE HASSAN S [employer] PLAYER Ot 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 02/17/2018 KAYCEE HASSAN S [employer] PLAYER Ot 250.00 DIAB OLU WO COMPL, TYPE II OR UNSPEC TY 02/17/2018 TONJA HASSANAH S [employer] PLAYER Ot 305.1 TOBACCO USE DISORDER 02/17/2018 KAYCEE HASSAN S [employer]ER Ot 401.9 HYPERTENSION NOS 02/17/2018 SONYA HILAH S [employer] PLAYER Ot 414.00 CORON ATHEROSCLER NOS TYPE VESSEL, NATIV 02/17/2018 KAYCEE HASSAN S [employer] PLAYER Ot 4 96 CHR AIRWAY OBSTRUCT NEC 02/17/2018 KAYCEE HASSAN S [employer] PLAYER Ot 793.11 SOLITARY PULMONARY NODULE 02/17/2018 KAYCEE HASSAN S [employer]ER Ot V45.81 AORTOCORONARY BYPASS 02/17/2018 KAYCEE HASSAN S [employer]ER Ot V58.67 LONG-TERM (CURRENT) USE OF INSULIN 02/17/2018 KAYCEE HASSAN S [employer]ER Ot V58.69 OT MED,LT,CURRENT USE 02/17/2018 SALOME STEVE N Ot 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 02/17/2018 SALOME STEVE Ot 496 CHR AIRWAY OBSTRUCT NEC 02/17/2018 SALOME STEVE Ot 787.20 DYSPHAGIA, UNSPECIFIED 02/17/2018 SALOME STEVE N Ot 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 02/17/2018 ZAK BUCIO VOLLEYBALL PLAYER Ot 250.02 DIAB OLU WO COMPL, TYPE II OR UNSPEC TY 02/17/2018 KAYCEE HASSAN S VOLLEYBALL PLAYER Ot 161.1 MALIG HILARIO SUPRAGLOTTIS 02/17/2018 KAYCEE HASSAN S VOLLEYBALL PLAYER Ot 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 02/17/2018 HASSAN, HILAH S VOLLEYBALL PLAYER Ot 250.00 DIAB OLU WO COMPL, TYPE II OR UNSPEC TY 02/17/2018 SONYA HILAH S VOLLEYBALL PLAYER Ot 305.1 TOBACCO USE DISORDER 02/17/2018 HASSAN, HILAH S VOLLEYBALL PLAYER Ot 401.9 HYPERTENSION NOS 02/17/2018 HASSAN HILAH S VOLLEYBALL PLAYER Ot 414.00 CORON ATHEROSCLER NOS TYPE VESSEL, NATIV 02/17/2018 KAYCEE HASSAN S VOLLEYBALL PLAYER Ot 4 96 CHR AIRWAY OBSTRUCT NEC 02/17/2018 KAYCEE HASSAN S VOLLEYBALL PLAYER Ot 793.11 SOLITARY PULMONARY NODULE 02/17/2018 KAYCEE HASSAN S VOLLEYBALL PLAYER Ot V45.81 AORTOCORONARY BYPASS 02/17/2018 KAYCEE HASSAN S VOLLEYBALL PLAYER Ot V58.67 LONG-TERM (CURRENT) USE OF INSULIN 02/17/2018 KAYCEE HASSAN S VOLLEYBALL PLAYER Ot V58.69 OTH MED,LT,CURRENT USE 02/17/2018 SONYA HILAH S VOLLEYBALL PLAYER Ot 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 02/17/2018 HASSAN, HILAH S VOLLEYBALL PLAYER Ot 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 02/17/2018 TONJA HASSANAH S VOLLEYBALL PLAYER Ot 250.00 DIAB OLU WO COMPL, TYPE II OR UNSPEC TY 02/17/2018 HASSAN, HILAH S VOLLEYBALL PLAYER Ot 305.1 TOBACCO USE DISORDER 02/17/2018 TONJA HASSANAH S VOLLEYBALL PLAYER Ot 401.9 HYPERTENSION NOS 02/17/2018 TONJA HASSANBOB S VOLLEYBALL PLAYER Ot 414.00 CORON ATHEROSCLER NOS TYPE VESSEL, NATIV 02/17/2018 KAYCEE HASSAN S VOLLEYBALL PLAYER Ot 4 96 CHR AIRWAY OBSTRUCT NEC 02/17/2018 KAYCEE HASSAN S VOLLEYBALL PLAYER Ot 793.11 SOLITARY PULMONARY NODULE 02/17/2018 KAYCEE HASSAN S VOLLEYBALL PLAYER Ot V45.81 AORTOCORONARY BYPASS 02/17/2018 KAYCEE HASSAN S VOLLEYBALL PLAYER Ot V58.67 LONG-TERM (CURRENT) USE OF INSULIN 02/17/2018 KAYCEE HASSAN S VOLLEYBALL PLAYER Ot V58.69 OTH MED,LT,CURRENT USE 02/17/2018 KAYCEE HASSAN S VOLLEYBALL PLAYER Ot 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 4 HYPERLIPIDEMIA NEC/NOS 02/17/2018 CLAUDIA CUTLER, KYLIE Dawson Ot 401. 9 HYPERTENSION NOS 02/17/2018 KYLIE TAYLOR MD Ot 414. 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 02/17/2018 HASSANKAYCEE Marinelli S VOLLEYBALL PLAYER Ot 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 02/17/2018 HASSAN, HILAH S VOLLEYBALL PLAYER Ot 250.00 DIAB OLU WO COMPL, TYPE II OR UNSPEC TY 02/17/2018 HASSAN HILAH S VOLLEYBALL PLAYER Ot 305.1 TOBACCO USE DISORDER 02/17/2018 HASSAN HILAH S VOLLEYBALL PLAYER Ot 401.9 HYPERTENSION NOS 02/17/2018 HASSAN HILAH S VOLLEYBALL PLAYER Ot 414.00 CORON ATHEROSCLER NOS TYPE VESSEL, NATIV 02/17/2018 HASSAN HILAH S VOLLEYBALL PLAYER Ot 4 96 CHR AIRWAY OBSTRUCT NEC 02/17/2018 HASSANTONJAAH S VOLLEYBALL PLAYER Ot 793.11 SOLITARY PULMONARY NODULE 02/17/2018 TONJA HASSANAH S VOLLEYBALL PLAYER Ot V45.81 AORTOCORONARY BYPASS 02/17/2018 TONJA HASSANAH S VOLLEYBALL PLAYER Ot V58.67 LONG-TERM (CURRENT) USE OF INSULIN 02/17/2018 TONJA HASSANAH S VOLLEYBALL PLAYER Ot V58.69 OTH MED,LT,CURRENT USE 02/17/2018 SONYA HILAH S VOLLEYBALL PLAYER Ot 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 02/17/2018 HASSAN, HILAH S VOLLEYBALL PLAYER Ot 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 02/17/2018 HASSANTONJAAH S VOLLEYBALL PLAYER Ot 250.00 DIAB OLU WO COMPL, TYPE II OR UNSPEC TY 02/17/2018 HASSANTONJAAH S VOLLEYBALL PLAYER Ot 305.1 TOBACCO USE DISORDER 02/17/2018 HASSAN HILAH S VOLLEYBALL PLAYER Ot 401.9 HYPERTENSION NOS 02/17/2018 HASSAN HILAH S VOLLEYBALL PLAYER Ot 414.00 CORON ATHEROSCLER NOS TYPE VESSEL, NATIV 02/17/2018 HASSAN HILAH S VOLLEYBALL PLAYER Ot 4 96 CHR AIRWAY OBSTRUCT NEC 02/17/2018 HASSAN HILAH S VOLLEYBALL PLAYER Ot 793.11 SOLITARY PULMONARY NODULE 02/17/2018 SONYA HILAH S VOLLEYBALL PLAYER Ot V45.81 AORTOCORONARY BYPASS 02/17/2018 KAYCEE HASSAN VOLLEYBALL PLAYER Ot V58.67 LONG-TERM (CURRENT) USE OF INSULIN 02/17/2018 KAYCEE HASSAN VOLLEYBALL PLAYER Ot V58.69 OTH MED,LT,CURRENT USE 02/17/2018 KAYCEE HASSAN VOLLEYBALL PLAYER Ot V58.81 FIT/ADJ VASCULAR CATHETER 02/17/2018 KAYCEE HASSANP Ot 141.9 MALIG HILARIO TONGUE NOS 02/17/2018 KAYCEE HASSANP Ot 793.11 SOLITARY PULMONARY NODULE 02/17/2018 Ot 786.6 CHES T SWELLING/MASS/LUMP 02/17/2018 Ot V72.63 PRE -PROCEDURAL LABORATORY EXAMINATION 02/17/2018 Ot V72.81 FYTZ-BTA-DYBDHTSCL CARDIOVASCULAR 02/17/2018 Ot V72.83 EXA M PRE- OPERATIVE NEC 02/17/2018 DARIAN JESSICA MD Ot 162. 9 MAL HILARIO BRONCH/LUNG NOS 02/17/2018 DARIAN JESSICA MD Ot 414. 01 CORONARY ATHEROSCLEROSIS OF [place] CORON 02/17/2018 DARIAN JESSICA MD Ot 782. 3 EDEMA 02/17/2018 POWER SALOME Miguel A Ot 793.11 SOLITARY PULMONARY NODULE 02/17/2018 CLAUDIA CUTLER, KYLIE Dawson Ot 250. 00 DIAB OLU WO COMPL, TYPE II OR UNSPEC TY 02/17/2018 KYLIE TAYLOR MD Ot 401. 9 HYPERTENSION NOS 02/17/2018 KYLIE TAYLOR MD Ot 414. 00 CORON ATHEROSCLER NOS TYPE VESSEL, NATIV 02/17/2018 KYLIE TAYLOR MD Ot 428. 0 CONGESTIVE HEART FAILURE NOS 02/17/2018 KYLIE TAYLOR MD Ot V58. 67 LONG-TERM (CURRENT) USE OF INSULIN 02/17/2018 KAYCEE HASSANP Ot 162.9 MAL HILARIO BRONCH/LUNG NOS 02/17/2018 KAYCEE HASSANP Ot C34.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 02/17/2018 KAYCEE HASSANP Ot C32.1 MALIGNANT NEOPLASM OF SUPRAGLOTTIS 02/17/2018 KAYCEE HASSAN Ot Z12.31 ENCNTR SCREEN MAMMOGRAM FOR MALIGNANT NE 02/17/2018 HASSAN, HILAH S VOLLEYBALL PLAYER Ot C32.1 MALIGNANT NEOPLASM OF SUPRAGLOTTIS 02/17/2018 LILLY LEE DO Ot Z01.818 ENCOUNTER FOR OTHER PREPROCEDURAL EXAMIN 02/17/2018 SALOME STEVE Ot C32.1 MALIGNANT NEOPLASM OF SUPRAGLOTTIS 02/17/2018 LILIAN TREJO DO Ot C32. 1 MALIGNANT NEOPLASM OF SUPRAGLOTTIS 02/17/2018 LILIAN TREJO DO M Ot C34. 12 MALIGNANT NEOPLASM OF UPPER LOBE, LEFT B 02/17/2018 LILIAN TREJO DO M Ot C32. 1 MALIGNANT NEOPLASM OF SUPRAGLOTTIS 02/17/2018 LILIAN TREJO DO M Ot C34. 12 MALIGNANT NEOPLASM OF UPPER LOBE, LEFT B 02/17/2018 KAYCEE HASSAN VOLLEYBALL PLAYER Ot C32.1 MALIGNANT NEOPLASM OF SUPRAGLOTTIS 02/17/2018 KAYCEE HASSANP Ot C34.12 MALIGNANT NEOPLASM OF UPPER LOBE, LEFT B 02/17/2018 KAYCEE HASSANP Ot M25.552 PAIN IN LEFT HIP 02/17/2018 ANAIS ANGULO MD Ot C32.1 MALIGNANT NEOPLASM OF SUPRAGLOTTIS 02/17/2018 ANAIS ANGULO MD Ot Z09 ENCNTR FOR F/U EXAM AFT TRTMT FOR COND O 02/17/2018 ANAIS ANGULO MD Ot Z96.8 9 PRESENCE OF OTHER SPECIFIED FUNCTIONAL I 02/17/2018 SERGEI CUTLER, STEF Arriola Ot C32 .1 MALIGNANT NEOPLASM OF SUPRAGLOTTIS 02/17/2018 ROBERTO CLANCYP Ot Z12.31 ENCNTR SCREEN MAMMOGRAM FOR MALIGNANT NE 02/17/2018 KAYCEE HASSAN VOLLEYBALL PLAYER Ot C32.1 MALIGNANT NEOPLASM OF SUPRAGLOTTIS 02/17/2018 KAYCEE HASSAN VOLLEYBALL PLAYER Ot C34.12 MALIGNANT NEOPLASM OF UPPER LOBE, LEFT B 02/17/2018 KAYCEE HASSAN VOLLEYBALL PLAYER Ot C32.1 MALIGNANT NEOPLASM OF SUPRAGLOTTIS 02/17/2018 KAYCEE HASSAN VOLLEYBALL PLAYER Ot C34.12 MALIGNANT NEOPLASM OF UPPER LOBE, LEFT B 02/17/2018 SALOME STEVE Ot C32.1 MALIGNANT NEOPLASM OF SUPRAGLOTTIS 02/17/2018 SALOME STEVE Ot C34.12 MALIGNANT NEOPLASM OF UPPER LOBE, LEFT B 02/17/2018 SALOME STEVE N Ot R74.8 ABNORMAL LEVELS OF OTHER SERUM ENZYMES 02/17/2018 MADLROBERTO VOLLEYBALL PLAYER Ot R10.10 UPPER ABDOMINAL PAIN, UNSPECIFIED 02/17/2018 JEZLROBERTO VOLLEYBALL PLAYER Ot R74 .8 ABNORMAL LEVELS OF OTHER SERUM ENZYMES 02/17/2018 MADLMARILYNA L VOLLEYBALL PLAYER Ot Z85.118 PERSONAL HISTORY OF MALIGNANT NEOPLASM O 02/17/2018 MADL, ROBERTO L VOLLEYBALL PLAYER Ot Z85.21 PERSONAL HISTORY OF MALIGNANT NEOPLASM O 02/17/2018 MADL, ROBERTO L VOLLEYBALL PLAYER Ot Z90.49 ACQUIRED ABSENCE OF OTHER SPECIFIED PART 02/17/2018 MADMARILYN FarleyA L VOLLEYBALL PLAYER Ot Z12.31 ENCNTR SCREEN MAMMOGRAM FOR MALIGNANT NE 02/17/2018 SALOME STEVE Ot C32.1 MALIGNANT NEOPLASM OF SUPRAGLOTTIS 02/17/2018 SALOME STEVE Ot C34.12 MALIGNANT NEOPLASM OF UPPER LOBE, LEFT B 02/17/2018 POWER, SALOME Grady Ot E11.43 TYPE 2 DIABETES W DIABETIC AUTONOMIC (PO 02/17/2018 POWERSALOME Ot E78.5 HYPERLIPIDEMIA, UNSPECIFIED 02/17/2018 SALOME STEVE Ot E83.42 HYPOMAGNESEMIA 02/17/2018 POWERSALOME Ot F17.210 NICOTINE DEPENDENCE, CIGARETTES, UNCOMPL 02/17/2018 SALOME STEVE Ot I10 ESSENTIAL (PRIMARY) HYPERTENSION 02/17/2018 SALOME STEVE Ot I25.10 ATHSCL HEART DISEASE OF [place] CORONARY 02/17/2018 SALOME STEVE Ot J43.9 EMPHYSEMA, UNSPECIFIED 02/17/2018 SALOME STEVE Ot Z45.2 ENCOUNTER FOR ADJUSTMENT AND MANAGEMENT 02/17/2018 SALOME STEVE Ot Z79.899 OTHER RETIREMENT (CURRENT) DRUG THERAPY 02/17/2018 SALOME STEVE Ot Z92.21 PERSONAL HISTORY OF ANTINEOPLASTIC CHEMO 02/17/2018 SALOME STEVE Ot Z92.3 PERSONAL HISTORY OF IRRADIATION 02/18/2018 SALOME STEVE Ot C32.1 MALIGNANT NEOPLASM OF SUPRAGLOTTIS 02/18/2018 POWERSALOME PHILLIPS N Ot C34.12 MALIGNANT NEOPLASM OF UPPER LOBE, LEFT B 02/18/2018 POWERPIOTR PHILLIPSAN N Ot E11.43 TYPE 2 DIABETES W DIABETIC AUTONOMIC (PO 02/18/2018 POWERPIOTRAN N Ot E78.5 HYPERLIPIDEMIA, UNSPECIFIED 02/18/2018 POWERPIOTRAN N Ot E83.42 HYPOMAGNESEMIA 02/18/2018 POWERPIOTRAN N Ot F17.210 NICOTINE DEPENDENCE, CIGARETTES, UNCOMPL 02/18/2018 POWER BOBAN N Ot I10 ESSENTIAL (PRIMARY) HYPERTENSION 02/18/2018 POWER BOBAN N Ot I25.10 ATHSCL HEART DISEASE OF [place] CORONARY 02/18/2018 POWER BOBAN N Ot J43.9 EMPHYSEMA, UNSPECIFIED 02/18/2018 POWER, BOBAN N Ot Z45.2 ENCOUNTER FOR ADJUSTMENT AND MANAGEMENT 02/18/2018 POWER BOBAN N Ot Z79.899 OTHER RETIREMENT (CURRENT) DRUG THERAPY 02/18/2018 POWERPIOTR PHILLIPSAN N Ot Z92.21 PERSONAL HISTORY OF ANTINEOPLASTIC CHEMO 02/18/2018 PIOTR STEVEAN N Ot Z92.3 PERSONAL HISTORY OF IRRADIATION 03/15/2018 PIOTR STEVEAN N Ot C32.1 MALIGNANT NEOPLASM OF SUPRAGLOTTIS 03/15/2018 SALOME STEVE N Ot C34.12 MALIGNANT NEOPLASM OF UPPER LOBE, LEFT B 03/15/2018 POWERSALOME PHILLIPS N Ot E11.43 TYPE 2 DIABETES W DIABETIC AUTONOMIC (PO 03/15/2018 POWERSALOME N Ot E78.5 HYPERLIPIDEMIA, UNSPECIFIED 03/15/2018 POWER BOBAN N Ot E83.42 HYPOMAGNESEMIA 03/15/2018 POWER BOBAN N Ot F17.210 NICOTINE DEPENDENCE, CIGARETTES, UNCOMPL 03/15/2018 POWER BOBAN N Ot I10 ESSENTIAL (PRIMARY) HYPERTENSION 03/15/2018 POWER BOBAN N Ot I25.10 ATHSCL HEART DISEASE OF [place] CORONARY 03/15/2018 POWER BOBAN N Ot J43.9 EMPHYSEMA, UNSPECIFIED 03/15/2018 POWER, BOBAN N Ot Z45.2 ENCOUNTER FOR ADJUSTMENT AND MANAGEMENT 03/15/2018 POWER BOBAN N Ot Z79.899 OTHER EXPEDITER CLERK (CURRENT) DRUG THERAPY 03/15/2018 SALOME STEVE Miguel A Ot Z92.21 PERSONAL HISTORY OF ANTINEOPLASTIC CHEMO 03/15/2018 SALOME STEVE Miguel A Ot Z92.3 PERSONAL HISTORY OF IRRADIATION 05/27/2018 NEILLILIAN PINO DO Ot C32. 1 MALIGNANT NEOPLASM OF SUPRAGLOTTIS 05/27/2018 NEIL LILIAN BIRD Ot C34. 12 MALIGNANT NEOPLASM OF UPPER LOBE, LEFT B 05/27/2018 LEE DO, LILLY D Ot Z01.818 ENCOUNTER FOR OTHER PREPROCEDURAL EXAMIN 05/28/2018 LEE DOAFSANEHTT D Ot Z01.818 ENCOUNTER FOR OTHER PREPROCEDURAL EXAMIN 06/02/2018 LEE DOLILLY Ot Z01.818 ENCOUNTER FOR OTHER PREPROCEDURAL EXAMIN 06/02/2018 KAYCEE HASSAN VOLLEYBALL PLAYER Ot C32.1 MALIGNANT NEOPLASM OF SUPRAGLOTTIS 06/02/2018 KAYCEE HASSANP Ot C34.12 MALIGNANT NEOPLASM OF UPPER LOBE, LEFT B 06/02/2018 KAYCEE HASSANP Ot M25.552 PAIN IN LEFT HIP 06/02/2018 ANAIS ANGULO MD Ot C32.1 MALIGNANT NEOPLASM OF SUPRAGLOTTIS 06/02/2018 ANAIS ANGULO MD Ot Z09 ENCNTR FOR F/U EXAM AFT TRTMT FOR COND O 06/02/2018 ANAIS ANGULO MD Ot Z96.8 9 PRESENCE OF OTHER SPECIFIED FUNCTIONAL I 06/02/2018 SERGEI CUTLER, STEF Arriola Ot C32 .1 MALIGNANT NEOPLASM OF SUPRAGLOTTIS 06/02/2018 ROBERTO CLANCY VOLLEYBALL PLAYER Ot Z12.31 ENCNTR SCREEN MAMMOGRAM FOR MALIGNANT NE 06/02/2018 KAYCEE HASSAN VOLLEYBALL PLAYER Ot C32.1 MALIGNANT NEOPLASM OF SUPRAGLOTTIS 06/02/2018 KAYCEE HASSAN VOLLEYBALL PLAYER Ot C34.12 MALIGNANT NEOPLASM OF UPPER LOBE, LEFT B 06/02/2018 KAYCEE HASSAN VOLLEYBALL PLAYER Ot C32.1 MALIGNANT NEOPLASM OF SUPRAGLOTTIS 06/02/2018 KAYCEE HASSAN VOLLEYBALL PLAYER Ot C34.12 MALIGNANT NEOPLASM OF UPPER LOBE, LEFT B 06/02/2018 SALOME STEVE Ot C32.1 MALIGNANT NEOPLASM OF SUPRAGLOTTIS 06/02/2018 SALOME STEVE N Ot C34.12 MALIGNANT NEOPLASM OF UPPER LOBE, LEFT B 06/02/2018 SALOME STEVE Miguel A Ot R74.8 ABNORMAL LEVELS OF OTHER SERUM ENZYMES 06/02/2018 MADL, ROBERTO L VOLLEYBALL PLAYER Ot R10.10 UPPER ABDOMINAL PAIN, UNSPECIFIED 06/02/2018 MADL, ROBERTO L VOLLEYBALL PLAYER Ot R74 .8 ABNORMAL LEVELS OF OTHER SERUM ENZYMES 06/02/2018 MADL, ROBERTO L VOLLEYBALL PLAYER Ot Z85.118 PERSONAL HISTORY OF MALIGNANT NEOPLASM O 06/02/2018 MADL, ROBERTO L VOLLEYBALL PLAYER Ot Z85.21 PERSONAL HISTORY OF MALIGNANT NEOPLASM O 06/02/2018 MADL, ROBERTO L VOLLEYBALL PLAYER Ot Z90.49 ACQUIRED ABSENCE OF OTHER SPECIFIED PART 06/02/2018 MADL, ROBERTO L VOLLEYBALL PLAYER Ot Z12.31 ENCNTR SCREEN MAMMOGRAM FOR MALIGNANT NE 06/02/2018 POWER, PIOTRBRANDO N Ot C32.1 MALIGNANT NEOPLASM OF SUPRAGLOTTIS 06/02/2018 POWERSALOME PHILLIPS N Ot C34.12 MALIGNANT NEOPLASM OF UPPER LOBE, LEFT B 06/02/2018 SALOME STEVE N Ot D64.9 ANEMIA, UNSPECIFIED 06/02/2018 POEWR SALOME N Ot E11.22 TYPE 2 DIABETES MELLITUS W DIABETIC MOLD DESIGNER 06/02/2018 POWER PIOTRBRANDO N Ot E11.43 TYPE 2 DIABETES W DIABETIC AUTONOMIC (PO 06/02/2018 POWER, SALOME N Ot E78.5 HYPERLIPIDEMIA, UNSPECIFIED 06/02/2018 SALOME STEVE N Ot E83.42 HYPOMAGNESEMIA 06/02/2018 SALOME STEVE N Ot F17.210 NICOTINE DEPENDENCE, CIGARETTES, UNCOMPL 06/02/2018 SALOME STEVE N Ot I12.9 HYPERTENSIVE CHRONIC KIDNEY DISEASE W ST 06/02/2018 SALOME STEVE N Ot I25.10 ATHSCL HEART DISEASE OF [place] CORONARY 06/02/2018 SALOME STEVE N Ot J43.9 EMPHYSEMA, UNSPECIFIED 06/02/2018 SALOME STEVE N Ot N18.3 CHRONIC KIDNEY DISEASE, STAGE 3 (MODERAT 06/02/2018 SALOME STEVE N Ot Z79.899 OTHER EXPEDITER CLERK (CURRENT) DRUG THERAPY 06/02/2018 SALOME STEVE Ot Z92.21 PERSONAL HISTORY OF ANTINEOPLASTIC CHEMO 06/02/2018 SALOME TSEVE Ot Z92.3 PERSONAL HISTORY OF IRRADIATION 06/02/2018 LILLY LEE DO Ot D12. 0 BENIGN NEOPLASM OF CECUM 06/02/2018 LILLY LEE DO Ot D12. 8 BENIGN NEOPLASM OF RECTUM 06/02/2018 LILLY LEE DO Ot E11. 22 TYPE 2 DIABETES MELLITUS W DIABETIC MOLD DESIGNER 06/02/2018 LILLY LEE DO Ot E11. 43 TYPE 2 DIABETES W DIABETIC AUTONOMIC (PO 06/02/2018 LILLY LEE DO Ot I13. 0 HYP HRT CHR [place] DIS W HRT FAIL AND ST 06/02/2018 LILLY LEE DO Ot I25. 10 ATHSCL HEART DISEASE OF [place] CORONARY 06/02/2018 LILLY LEE DO Ot I50. 9 HEART FAILURE, UNSPECIFIED 06/02/2018 LILLY LEE DO Ot J44. 9 CHRONIC OBSTRUCTIVE PULMONARY DISEASE, U 06/02/2018 LILLY LEE DO Ot K21. 9 GASTRO-ESOPHAGEAL REFLUX DISEASE WITHOUT 06/02/2018 LILLY LEE DO Ot K29. 70 GASTRITIS, UNSPECIFIED, WITHOUT BLEEDING 06/02/2018 LILLY LEE DO Ot K63. 5 POLYP OF COLON 06/02/2018 LILLY LEE DO Ot N18. 3 CHRONIC KIDNEY DISEASE, STAGE 3 (MODERAT 06/02/2018 LILLY LEE DO Ot Z79. 01 EXPEDITER CLERK (CURRENT) USE OF ANTICOAGULANT 06/02/2018 LILLY LEE DO Ot Z79. 4 EXPEDITER CLERK (CURRENT) USE OF INSULIN 06/02/2018 LILLY LEE DO Ot Z79.899 OTHER RETIREMENT (CURRENT) DRUG THERAPY 06/02/2018 LILLY LEE DO Ot Z87.891 PERSONAL HISTORY OF NICOTINE DEPENDENCE 06/02/2018 LILLY LEE DO Ot Z95. 1 PRESENCE OF AORTOCORONARY BYPASS GRAFT 06/10/2018 LILLY LEE DO Ot D12. 0 BENIGN NEOPLASM OF CECUM 06/10/2018 LILLY LEE DO Ot D12. 8 BENIGN NEOPLASM OF RECTUM 06/10/2018 LILLY LEE DO Ot E11. 22 TYPE 2 DIABETES MELLITUS W DIABETIC MOLD DESIGNER 06/10/2018 LILLY LEE DO Ot E11. 43 TYPE 2 DIABETES W DIABETIC AUTONOMIC (PO 06/10/2018 LILLY LEE DO Ot I13. 0 HYP HRT CHR [place] DIS W HRT FAIL AND ST 06/10/2018 LILLY LEE DO Ot I25. 10 ATHSCL HEART DISEASE OF [place] CORONARY 06/10/2018 LILLY LEE DO Ot I50. 9 HEART FAILURE, UNSPECIFIED 06/10/2018 LILLY LEE DO Ot J44. 9 CHRONIC OBSTRUCTIVE PULMONARY DISEASE, U 06/10/2018 LILLY LEE DO Ot K21. 9 GASTRO-ESOPHAGEAL REFLUX DISEASE WITHOUT 06/10/2018 LILLY LEE DO Ot K29. 70 GASTRITIS, UNSPECIFIED, WITHOUT BLEEDING 06/10/2018 LILLY LEE DO Ot K63. 5 POLYP OF COLON 06/10/2018 LILLY LEE DO Ot N18. 3 CHRONIC KIDNEY DISEASE, STAGE 3 (MODERAT 06/10/2018 LILLY LEE DO Ot Z79. 01 EXPEDITER CLERK (CURRENT) USE OF ANTICOAGULANT 06/10/2018 LILLY LEE DO Ot Z79. 4 EXPEDITER CLERK (CURRENT) USE OF INSULIN 06/10/2018 LILLY LEE DO Ot Z79.899 OTHER RETIREMENT (CURRENT) DRUG THERAPY 06/10/2018 LILLY LEE DO Ot Z87.891 PERSONAL HISTORY OF NICOTINE DEPENDENCE 06/10/2018 LILLY LEE DO Ot Z95. 1 PRESENCE OF AORTOCORONARY BYPASS GRAFT 06/14/2018 LILLY LEE DO Ot D12. 0 BENIGN NEOPLASM OF CECUM 06/14/2018 LILLY LEE DO Ot D12. 8 BENIGN NEOPLASM OF RECTUM 06/14/2018 LILLY LEE DO Ot E11. 22 TYPE 2 DIABETES MELLITUS W DIABETIC MOLD DESIGNER 06/14/2018 LILLY LEE DO Ot E11. 43 TYPE 2 DIABETES W DIABETIC AUTONOMIC (PO 06/14/2018 LILLY LEE DO Ot I13. 0 HYP HRT CHR [place] DIS W HRT FAIL AND ST 06/14/2018 LILLY LEE DO Ot I25. 10 ATHSCL HEART DISEASE OF [place] CORONARY 06/14/2018 LILLY LEE DO Ot I50. 9 HEART FAILURE, UNSPECIFIED 06/14/2018 LILLY LEE DO Ot J44. 9 CHRONIC OBSTRUCTIVE PULMONARY DISEASE, U 06/14/2018 LILLY LEE DO Ot K21. 9 GASTRO-ESOPHAGEAL REFLUX DISEASE WITHOUT 06/14/2018 LILLY LEE DO Ot K29. 70 GASTRITIS, UNSPECIFIED, WITHOUT BLEEDING 06/14/2018 LILLY LEE DO Ot K63. 5 POLYP OF COLON 06/14/2018 LILLY LEE DO Ot N18. 3 CHRONIC KIDNEY DISEASE, STAGE 3 (MODERAT 06/14/2018 LILLY LEE DO Ot Z79. 01 RETIREMENT (CURRENT) USE OF ANTICOAGULANT 06/14/2018 LILLY LEE DO Ot Z79. 4 EXPEDITER CLERK (CURRENT) USE OF INSULIN 06/14/2018 LILLY LEE DO Ot Z79.899 OTHER RETIREMENT (CURRENT) DRUG THERAPY 06/14/2018 LILLY LEE DO, Ot Z87.891 PERSONAL HISTORY OF NICOTINE DEPENDENCE 06/14/2018 LILLY LEE DO Ot Z95. 1 PRESENCE OF AORTOCORONARY BYPASS GRAFT 07/01/2018 TAMRA MEAD APRN Ot Z12.31 ENCNTR SCREEN MAMMOGRAM FOR MALIGNANT NE 07/06/2018 TAMRA MEAD APRN Ot Z12.31 ENCNTR SCREEN MAMMOGRAM FOR MALIGNANT NE 07/12/2018 SALOME STEVE Ot C32.1 MALIGNANT NEOPLASM OF SUPRAGLOTTIS 07/12/2018 SALOME STEVE Ot C34.12 MALIGNANT NEOPLASM OF UPPER LOBE, LEFT B 07/12/2018 SALOME STEVE Ot D64.9 ANEMIA, UNSPECIFIED 07/12/2018 SALOME STEVE Ot E11.22 TYPE 2 DIABETES MELLITUS W DIABETIC MOLD DESIGNER 07/12/2018 SALOME STEVE Ot E11.43 TYPE 2 DIABETES W DIABETIC AUTONOMIC (PO 07/12/2018 SALOME STEVE Ot E78.5 HYPERLIPIDEMIA, UNSPECIFIED 07/12/2018 SALOME STEVE Ot E83.42 HYPOMAGNESEMIA 07/12/2018 SALOME STEVE Ot F17.210 NICOTINE DEPENDENCE, CIGARETTES, UNCOMPL 07/12/2018 POWER, BOBAN N Ot I12.9 HYPERTENSIVE CHRONIC KIDNEY DISEASE W ST 07/12/2018 POWER SALOME N Ot I25.10 ATHSCL HEART DISEASE OF [place] CORONARY 07/12/2018 POWER SALOME N Ot J43.9 EMPHYSEMA, UNSPECIFIED 07/12/2018 POWER SALOME N Ot N18.3 CHRONIC KIDNEY DISEASE, STAGE 3 (MODERAT 07/12/2018 POWER SALOME N Ot Z45.2 ENCOUNTER FOR ADJUSTMENT AND MANAGEMENT 07/12/2018 POWER SALOME N Ot Z79.899 OTHER EXPEDITER CLERK (CURRENT) DRUG THERAPY 07/12/2018 POWER SALOME N Ot Z92.21 PERSONAL HISTORY OF ANTINEOPLASTIC CHEMO 07/12/2018 POWER, SALOME N Ot Z92.3 PERSONAL HISTORY OF IRRADIATION 07/13/2018 POWER, SALOME N Ot C32.1 MALIGNANT NEOPLASM OF SUPRAGLOTTIS 07/13/2018 POWERSALOME N Ot C34.12 MALIGNANT NEOPLASM OF UPPER LOBE, LEFT B 07/13/2018 POWERSALOME N Ot D64.9 ANEMIA, UNSPECIFIED 07/13/2018 POWER SALOME N Ot E11.22 TYPE 2 DIABETES MELLITUS W DIABETIC MOLD DESIGNER 07/13/2018 POWER SALOME N Ot E11.43 TYPE 2 DIABETES W DIABETIC AUTONOMIC (PO 07/13/2018 POWER SALOME N Ot E78.5 HYPERLIPIDEMIA, UNSPECIFIED 07/13/2018 POWER SALOME N Ot E83.42 HYPOMAGNESEMIA 07/13/2018 POWER, SALOME N Ot F17.210 NICOTINE DEPENDENCE, CIGARETTES, UNCOMPL 07/13/2018 POWERSALOME N Ot I12.9 HYPERTENSIVE CHRONIC KIDNEY DISEASE W ST 07/13/2018 POWER SALOME N Ot I25.10 ATHSCL HEART DISEASE OF [place] CORONARY 07/13/2018 POWER SALOME N Ot J43.9 EMPHYSEMA, UNSPECIFIED 07/13/2018 POWER SALOME N Ot N18.3 CHRONIC KIDNEY DISEASE, STAGE 3 (MODERAT 07/13/2018 POWER SALOME N Ot Z45.2 ENCOUNTER FOR ADJUSTMENT AND MANAGEMENT 07/13/2018 POWER SALOME N Ot Z79.899 OTHER EXPEDITER CLERK (CURRENT) DRUG THERAPY 07/13/2018 POWERSALOME N Ot Z92.21 PERSONAL HISTORY OF ANTINEOPLASTIC CHEMO 07/13/2018 SALOME STEVE Ot Z92.3 PERSONAL HISTORY OF IRRADIATION 07/21/2018 TAMRA MEAD APRN Ot Z12.31 ENCNTR SCREEN MAMMOGRAM FOR MALIGNANT NE 07/27/2018 LEELILLY SWENSON DO Ot D50. 9 IRON DEFICIENCY ANEMIA, UNSPECIFIED 07/30/2018 LEE DO, LILLY D Ot D12. 6 BENIGN NEOPLASM OF COLON, UNSPECIFIED 07/30/2018 LEE DOLILLY D Ot Z01.812 ENCOUNTER FOR PREPROCEDURAL LABORATORY E 07/30/2018 LEE DO, LILLY D Ot Z11. 2 ENCOUNTER FOR SCREENING FOR OTHER BACTER 07/31/2018 LEE DOLILLY D Ot D12. 6 BENIGN NEOPLASM OF COLON, UNSPECIFIED 07/31/2018 LEE DO, LILLY D Ot Z01.812 ENCOUNTER FOR PREPROCEDURAL LABORATORY E 07/31/2018 LEE DOLILLY Ot Z11. 2 ENCOUNTER FOR SCREENING FOR OTHER BACTER 08/06/2018 LILIAN TREJO DO Ot C32. 1 MALIGNANT NEOPLASM OF SUPRAGLOTTIS 08/06/2018 LILIAN TREJO DO Ot C34. 12 MALIGNANT NEOPLASM OF UPPER LOBE, LEFT B 08/06/2018 SALOME STEVE Ot C32.1 MALIGNANT NEOPLASM OF SUPRAGLOTTIS 08/06/2018 SAOLME STEVE Ot C34.12 MALIGNANT NEOPLASM OF UPPER LOBE, LEFT B 08/06/2018 SALOME STEVE Ot D64.9 ANEMIA, UNSPECIFIED 08/06/2018 SALOME STEVE Ot E11.22 TYPE 2 DIABETES MELLITUS W DIABETIC MOLD DESIGNER 08/06/2018 SALOME STEVE Ot E11.43 TYPE 2 DIABETES W DIABETIC AUTONOMIC (PO 08/06/2018 SALOME STEVE Ot E78.5 HYPERLIPIDEMIA, UNSPECIFIED 08/06/2018 SALOME STEVE Ot E83.42 HYPOMAGNESEMIA 08/06/2018 SALOME STEVE Ot F17.210 NICOTINE DEPENDENCE, CIGARETTES, UNCOMPL 08/06/2018 SALOME STEVE Ot I12.9 HYPERTENSIVE CHRONIC KIDNEY DISEASE W ST 08/06/2018 SALOME STEVE Ot I25.10 ATHSCL HEART DISEASE OF [place] CORONARY 08/06/2018 SALOME STEVE Ot J43.9 EMPHYSEMA, UNSPECIFIED 08/06/2018 SALOME STEVE Ot N18.3 CHRONIC KIDNEY DISEASE, STAGE 3 (MODERAT 08/06/2018 SALOME STEVE Ot Z79.899 OTHER EXPEDITER CLERK (CURRENT) DRUG THERAPY 08/06/2018 SALOME STEVE Ot Z92.21 PERSONAL HISTORY OF ANTINEOPLASTIC CHEMO 08/06/2018 SALOME STEVE Ot Z92.3 PERSONAL HISTORY OF IRRADIATION 08/10/2018 LILLY LEE DO Ot C18. 1 MALIGNANT NEOPLASM OF APPENDIX 08/10/2018 LILLY LEE DO Ot D12. 0 BENIGN NEOPLASM OF CECUM 08/10/2018 LILLY LEE DO Ot E11. 9 TYPE 2 DIABETES MELLITUS WITHOUT COMPLIC 08/10/2018 LILLY LEE DO Ot E83. 42 HYPOMAGNESEMIA 08/10/2018 LILLY LEE DO Ot F17.210 NICOTINE DEPENDENCE, CIGARETTES, UNCOMPL 08/10/2018 LILLY LEE DO Ot I10 ESSENTIAL (PRIMARY) HYPERTENSION 08/10/2018 LILLY LEE DO Ot I25. 10 ATHSCL HEART DISEASE OF [place] CORONARY 08/10/2018 LILLY LEE DO Ot J44. 9 CHRONIC OBSTRUCTIVE PULMONARY DISEASE, U 08/10/2018 LILLY LEE DO Ot R51 HEADACHE 08/10/2018 LILLY LEE DO Ot Z79. 4 EXPEDITER CLERK (CURRENT) USE OF INSULIN 08/10/2018 LILLY LEE DO Ot Z85.118 PERSONAL HISTORY OF MALIGNANT NEOPLASM O 08/10/2018 LILLY LEE DO Ot Z85. 21 PERSONAL HISTORY OF MALIGNANT NEOPLASM O 08/10/2018 LILLY LEE DO Ot Z95. 1 PRESENCE OF AORTOCORONARY BYPASS GRAFT 09/09/2018 LILIAN TREJO DO Ot G47. 10 HYPERSOMNIA, UNSPECIFIED 09/09/2018 LILIAN TREJO DO Ot G47. 10 HYPERSOMNIA, UNSPECIFIED 09/28/2018 NALINI JOHNS DO Ot 246.2 CYST OF THYROID 09/28/2018 NALINI JOHNS DO Ot 787.20 DYSPHAGIA, UNSPECIFIED 09/28/2018 SERGEI CUTLER, STEF Arriola Ot 241 .0 NONTOX UNINODULAR GOITER 09/28/2018 STEF MAI MD Ot 492 .8 EMPHYSEMA NEC 09/28/2018 STEF MAI MD Ot 784 .2 SWELLING IN HEAD NECK 09/28/2018 STEF MAI MD Ot 785 .6 ENLARGEMENT LYMPH NODES 09/28/2018 STEF MAI MD Ot 787.20 DYSPHAGIA, UNSPECIFIED 09/28/2018 STEF MAI MD Ot 240 .9 GOITER NOS 09/28/2018 STEF MAI MD Ot 780.79 OTH MALAISE FATIGUE 09/28/2018 STEF MAI MD Ot 784.42 DYSPHONIA 09/28/2018 JAMES CUTLER, ALBA Zamora Ot 401. 9 HYPERTENSION NOS 09/28/2018 JAMES CUTLER, ALBA Zamora Ot 414. 00 CORON ATHEROSCLER NOS TYPE VESSEL, NATIV 09/28/2018 JAMES CUTLER, ALBA Zamora Ot 794. 30 ABN CARDIOVASC STUDY NOS 09/28/2018 SHARLENE CUTLER, MAGAN E Ot 161.1 MALIG HILARIO SUPRAGLOTTIS 09/28/2018 LILLY LEE DO Ot 161. 1 MALIG HILARIO SUPRAGLOTTIS 09/28/2018 LILLY LEE DO Ot V72. 63 PRE-PROCEDURAL LABORATORY EXAMINATION 09/28/2018 LILLY LEE DO Ot V72. 84 EXAM PRE-OPERATIVE NOS 09/28/2018 KAYCEE HASSANP Ot 161.1 MALIG HILARIO SUPRAGLOTTIS 09/28/2018 KAYCEE HASSAN VOLLEYBALL PLAYER Ot 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 09/28/2018 KAYCEE HASSAN VOLLEYBALL PLAYER Ot 250.00 DIAB OLU WO COMPL, TYPE II OR UNSPEC TY 09/28/2018 KAYCEE HASSAN VOLLEYBALL PLAYER Ot 305.1 TOBACCO USE DISORDER 09/28/2018 KAYCEE HASSAN VOLLEYBALL PLAYER Ot 401.9 HYPERTENSION NOS 09/28/2018 KAYCEE HASSANP Ot 414.00 CORON ATHEROSCLER NOS TYPE VESSEL, NATIV 09/28/2018 KAYCEE HASSANP Ot 793.11 SOLITARY PULMONARY NODULE 09/28/2018 KAYCEE HASSANP Ot V45.81 AORTOCORONARY BYPASS 09/28/2018 KAYCEE HASSANP Ot V58.67 LONG-TERM (CURRENT) USE OF INSULIN 09/28/2018 HASSAN, HILAH S VOLLEYBALL PLAYER Ot V58.69 OTH MED,LT,CURRENT USE 09/28/2018 KAYCEE HASSAN S VOLLEYBALL PLAYER Ot 161.1 MALIG HILARIO SUPRAGLOTTIS 09/28/2018 KAYCEE HASSAN S VOLLEYBALL PLAYER Ot 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 09/28/2018 TONJA HASSANAH S VOLLEYBALL PLAYER Ot 250.00 DIAB OLU WO COMPL, TYPE II OR UNSPEC TY 09/28/2018 TONJA HASSANAH S VOLLEYBALL PLAYER Ot 305.1 TOBACCO USE DISORDER 09/28/2018 TONJA HASSANAH S VOLLEYBALL PLAYER Ot 401.9 HYPERTENSION NOS 09/28/2018 TONJA HASSANAH S VOLLEYBALL PLAYER Ot 414.00 CORON ATHEROSCLER NOS TYPE VESSEL, NATIV 09/28/2018 KAYCEE HASSAN S VOLLEYBALL PLAYER Ot 793.11 SOLITARY PULMONARY NODULE 09/28/2018 KAYCEE HASSAN S VOLLEYBALL PLAYER Ot V45.81 AORTOCORONARY BYPASS 09/28/2018 KAYCEE HASSAN S VOLLEYBALL PLAYER Ot V58.67 LONG-TERM (CURRENT) USE OF INSULIN 09/28/2018 KAYCEE HASSAN S VOLLEYBALL PLAYER Ot V58.69 OTH MED,LT,CURRENT USE 09/28/2018 KAYCEE HASSAN S VOLLEYBALL PLAYER Ot 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 09/28/2018 KAYCEE HASSAN S VOLLEYBALL PLAYER Ot 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 09/28/2018 KAYCEE HASSAN S VOLLEYBALL PLAYER Ot 250.00 DIAB OLU WO COMPL, TYPE II OR UNSPEC TY 09/28/2018 KAYCEE HASSAN S VOLLEYBALL PLAYER Ot 305.1 TOBACCO USE DISORDER 09/28/2018 KAYCEE HASSAN S VOLLEYBALL PLAYER Ot 401.9 HYPERTENSION NOS 09/28/2018 KAYCEE HASSAN S VOLLEYBALL PLAYER Ot 414.00 CORON ATHEROSCLER NOS TYPE VESSEL, NATIV 09/28/2018 TONJA HASSANAH S VOLLEYBALL PLAYER Ot 793.11 SOLITARY PULMONARY NODULE 09/28/2018 KAYCEE HASSAN S VOLLEYBALL PLAYER Ot V45.81 AORTOCORONARY BYPASS 09/28/2018 KAYCEE HASSAN S VOLLEYBALL PLAYER Ot V58.67 LONG-TERM (CURRENT) USE OF INSULIN 09/28/2018 KAYCEE HASSAN S VOLLEYBALL PLAYER Ot V58.69 OTH MED,LT,CURRENT USE 09/28/2018 KAYCEE HASSAN S VOLLEYBALL PLAYER Ot 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 09/28/2018 HASSAN, HILAH S VOLLEYBALL PLAYER Ot 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 09/28/2018 HASSAN HILAH S VOLLEYBALL PLAYER Ot 250.00 DIAB OLU WO COMPL, TYPE II OR UNSPEC TY 09/28/2018 HASSAN, HILAH S VOLLEYBALL PLAYER Ot 305.1 TOBACCO USE DISORDER 09/28/2018 HASSAN, HILAH S VOLLEYBALL PLAYER Ot 401.9 HYPERTENSION NOS 09/28/2018 HASSAN, HILAH S VOLLEYBALL PLAYER Ot 414.00 CORON ATHEROSCLER NOS TYPE VESSEL, NATIV 09/28/2018 HASSAN, HILAH S VOLLEYBALL PLAYER Ot 793.11 SOLITARY PULMONARY NODULE 09/28/2018 SONYA HILAH S VOLLEYBALL PLAYER Ot V45.81 AORTOCORONARY BYPASS 09/28/2018 SONYA HILAH S VOLLEYBALL PLAYER Ot V58.67 LONG-TERM (CURRENT) USE OF INSULIN 09/28/2018 HASSAN HILAH S VOLLEYBALL PLAYER Ot V58.69 OTH MED,LT,CURRENT USE 09/28/2018 KAYCEE HASSAN S VOLLEYBALL PLAYER Ot 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 09/28/2018 HASSAN HILAH S VOLLEYBALL PLAYER Ot 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 09/28/2018 HASSAN HILAH S VOLLEYBALL PLAYER Ot 250.00 DIAB OLU WO COMPL, TYPE II OR UNSPEC TY 09/28/2018 HASSAN HILAH S VOLLEYBALL PLAYER Ot 305.1 TOBACCO USE DISORDER 09/28/2018 TONJA HASSANAH S VOLLEYBALL PLAYER Ot 401.9 HYPERTENSION NOS 09/28/2018 SONYA HILAH S VOLLEYBALL PLAYER Ot 414.00 CORON ATHEROSCLER NOS TYPE VESSEL, NATIV 09/28/2018 HASSAN HILAH S VOLLEYBALL PLAYER Ot 793.11 SOLITARY PULMONARY NODULE 09/28/2018 HASSAN HILAH S VOLLEYBALL PLAYER Ot V45.81 AORTOCORONARY BYPASS 09/28/2018 HASSAN HILAH S VOLLEYBALL PLAYER Ot V58.67 LONG-TERM (CURRENT) USE OF INSULIN 09/28/2018 HASSAN HILAH S VOLLEYBALL PLAYER Ot V58.69 OTH MED,LT,CURRENT USE 09/28/2018 HASSAN HILAH S VOLLEYBALL PLAYER Ot 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 09/28/2018 SONYA HILAH S VOLLEYBALL PLAYER Ot 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 09/28/2018 KAYCEE HASSAN S VOLLEYBALL PLAYER Ot 250.00 DIAB OLU WO COMPL, TYPE II OR UNSPEC TY 09/28/2018 KAYCEE HASSAN S VOLLEYBALL PLAYER Ot 305.1 TOBACCO USE DISORDER 09/28/2018 KAYCEE HASSAN S VOLLEYBALL PLAYER Ot 401.9 HYPERTENSION NOS 09/28/2018 KAYCEE HASSAN S VOLLEYBALL PLAYER Ot 414.00 CORON ATHEROSCLER NOS TYPE VESSEL, NATIV 09/28/2018 KAYCEE HASSAN S VOLLEYBALL PLAYER Ot 4 96 CHR AIRWAY OBSTRUCT NEC 09/28/2018 KAYCEE HASSAN S VOLLEYBALL PLAYER Ot 793.11 SOLITARY PULMONARY NODULE 09/28/2018 KAYCEE HASSAN S VOLLEYBALL PLAYER Ot V45.81 AORTOCORONARY BYPASS 09/28/2018 KAYCEE HASSAN S VOLLEYBALL PLAYER Ot V58.67 LONG-TERM (CURRENT) USE OF INSULIN 09/28/2018 KAYCEE HASSAN S VOLLEYBALL PLAYER Ot V58.69 OTH MED,LT,CURRENT USE 09/28/2018 SALOME STEVE N Ot 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 09/28/2018 SALOME STEVE N Ot 496 CHR AIRWAY OBSTRUCT NEC 09/28/2018 SALOME STEVE N Ot 787.20 DYSPHAGIA, UNSPECIFIED 09/28/2018 SALOME STEVE N Ot 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 09/28/2018 ZAK BUCIO VOLLEYBALL PLAYER Ot 250.02 DIAB OLU WO COMPL, TYPE II OR UNSPEC TY 09/28/2018 KAYCEE HASSAN S VOLLEYBALL PLAYER Ot 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 09/28/2018 KAYCEE HASSAN S VOLLEYBALL PLAYER Ot 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 09/28/2018 KAYCEE HASSAN S VOLLEYBALL PLAYER Ot 250.00 DIAB OLU WO COMPL, TYPE II OR UNSPEC TY 09/28/2018 KAYCEE HASSAN S VOLLEYBALL PLAYER Ot 305.1 TOBACCO USE DISORDER 09/28/2018 KAYCEE HASSAN S VOLLEYBALL PLAYER Ot 401.9 HYPERTENSION NOS 09/28/2018 KAYCEE HASSAN S VOLLEYBALL PLAYER Ot 414.00 CORON ATHEROSCLER NOS TYPE VESSEL, NATIV 09/28/2018 KAYCEE HASSAN S VOLLEYBALL PLAYER Ot 4 96 CHR AIRWAY OBSTRUCT NEC 09/28/2018 KAYCEE HASSAN VOLLEYBALL PLAYER Ot 793.11 SOLITARY PULMONARY NODULE 09/28/2018 KAYCEE HASSAN VOLLEYBALL PLAYER Ot V45.81 AORTOCORONARY BYPASS 09/28/2018 KAYCEE HASSAN VOLLEYBALL PLAYER Ot V58.67 LONG-TERM (CURRENT) USE OF INSULIN 09/28/2018 KAYCEE HASSAN VOLLEYBALL PLAYER Ot V58.69 OTH MED,LT,CURRENT USE 09/28/2018 KAYCEE HASSAN VOLLEYBALL PLAYER Ot 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 09/28/2018 KAYCEE HASSAN S VOLLEYBALL PLAYER Ot 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 09/28/2018 KAYCEE HASSAN S VOLLEYBALL PLAYER Ot 250.00 DIAB OLU WO COMPL, TYPE II OR UNSPEC TY 09/28/2018 KAYCEE HASSAN VOLLEYBALL PLAYER Ot 305.1 TOBACCO USE DISORDER 09/28/2018 KAYCEE HASSAN S VOLLEYBALL PLAYER Ot 401.9 HYPERTENSION NOS 09/28/2018 KAYCEE HASSAN VOLLEYBALL PLAYER Ot 414.00 CORON ATHEROSCLER NOS TYPE VESSEL, NATIV 09/28/2018 KAYCEE HASSAN VOLLEYBALL PLAYER Ot 4 96 CHR AIRWAY OBSTRUCT NEC 09/28/2018 KAYCEE HASSAN VOLLEYBALL PLAYER Ot 793.11 SOLITARY PULMONARY NODULE 09/28/2018 KAYCEE HASSAN VOLLEYBALL PLAYER Ot V45.81 AORTOCORONARY BYPASS 09/28/2018 KAYCEE HASSAN VOLLEYBALL PLAYER Ot V58.67 LONG-TERM (CURRENT) USE OF INSULIN 09/28/2018 KAYCEE HASSAN VOLLEYBALL PLAYER Ot V58.69 OTH MED,LT,CURRENT USE 09/28/2018 KAYCEE HASSAN VOLLEYBALL PLAYER Ot 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 4 HYPERLIPIDEMIA NEC/NOS 09/28/2018 KYLIE TAYLOR MD Ot 401. 9 HYPERTENSION NOS 09/28/2018 KYLIE TAYLOR MD Ot 414. 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 09/28/2018 TONJA HASSANAH S VOLLEYBALL PLAYER Ot 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 09/28/2018 TONJA HASSANAH S VOLLEYBALL PLAYER Ot 250.00 DIAB OLU WO COMPL, TYPE II OR UNSPEC TY 09/28/2018 HASSAN, HILAH S VOLLEYBALL PLAYER Ot 305.1 TOBACCO USE DISORDER 09/28/2018 HASSAN, HILAH S VOLLEYBALL PLAYER Ot 401.9 HYPERTENSION NOS 09/28/2018 HASSAN, HILAH S VOLLEYBALL PLAYER Ot 414.00 CORON ATHEROSCLER NOS TYPE VESSEL, NATIV 09/28/2018 HASSAN, HILAH S VOLLEYBALL PLAYER Ot 4 96 CHR AIRWAY OBSTRUCT NEC 09/28/2018 HASSAN, HILAH S VOLLEYBALL PLAYER Ot 793.11 SOLITARY PULMONARY NODULE 09/28/2018 TONJA HASSANAH S VOLLEYBALL PLAYER Ot V45.81 AORTOCORONARY BYPASS 09/28/2018 TONJA HASSANAH S VOLLEYBALL PLAYER Ot V58.67 LONG-TERM (CURRENT) USE OF INSULIN 09/28/2018 TONJA HASSANAH S VOLLEYBALL PLAYER Ot V58.69 OTH MED,LT,CURRENT USE 09/28/2018 TONJA HASSANAH S VOLLEYBALL PLAYER Ot 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 09/28/2018 TONJA HASSANAH S VOLLEYBALL PLAYER Ot 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 09/28/2018 TONJA HASSANAH S VOLLEYBALL PLAYER Ot 250.00 DIAB OLU WO COMPL, TYPE II OR UNSPEC TY 09/28/2018 TONJA HASSANAH S VOLLEYBALL PLAYER Ot 305.1 TOBACCO USE DISORDER 09/28/2018 SONYA HILAH S VOLLEYBALL PLAYER Ot 401.9 HYPERTENSION NOS 09/28/2018 HASSAN HILAH S VOLLEYBALL PLAYER Ot 414.00 CORON ATHEROSCLER NOS TYPE VESSEL, NATIV 09/28/2018 HASSAN, HILAH S VOLLEYBALL PLAYER Ot 4 96 CHR AIRWAY OBSTRUCT NEC 09/28/2018 HASSAN HILAH S VOLLEYBALL PLAYER Ot 793.11 SOLITARY PULMONARY NODULE 09/28/2018 SONYA HILAH S VOLLEYBALL PLAYER Ot V45.81 AORTOCORONARY BYPASS 09/28/2018 SONYA HILAH S VOLLEYBALL PLAYER Ot V58.67 LONG-TERM (CURRENT) USE OF INSULIN 09/28/2018 KAYCEE HASSAN VOLLEYBALL PLAYER Ot V58.69 OTH MED,LT,CURRENT USE 09/28/2018 KAYCEE HASSAN VOLLEYBALL PLAYER Ot V58.81 FIT/ADJ VASCULAR CATHETER 09/28/2018 KAYCEE HASSAN VOLLEYBALL PLAYER Ot 141.9 MALIG HILARIO TONGUE NOS 09/28/2018 KAYCEE HASSAN VOLLEYBALL PLAYER Ot 793.11 SOLITARY PULMONARY NODULE 09/28/2018 Ot 786.6 CHES T SWELLING/MASS/LUMP 09/28/2018 Ot V72.63 PRE -PROCEDURAL LABORATORY EXAMINATION 09/28/2018 Ot V72.81 [id number] CARDIOVASCULAR 09/28/2018 Ot V72.83 EXA M PRE- OPERATIVE NEC 09/28/2018 DARIAN JESSICA MD Ot 162. 9 MAL HILARIO BRONCH/LUNG NOS 09/28/2018 DARIAN JESSICA MD Ot 414. 01 CORONARY ATHEROSCLEROSIS OF [place] CORON 09/28/2018 DARIAN JESSICA MD Ot 782. 3 EDEMA 09/28/2018 SALOME STEVE Ot 793.11 SOLITARY PULMONARY NODULE 09/28/2018 CLAUDIA CUTLER, KYLIE Dawson Ot 250. 00 DIAB OLU WO COMPL, TYPE II OR UNSPEC TY 09/28/2018 CLAUDIA CUTLER, KYLIE Dawson Ot 401. 9 HYPERTENSION NOS 09/28/2018 KYLIE TAYLOR MD Ot 414. 00 CORON ATHEROSCLER NOS TYPE VESSEL, NATIV 09/28/2018 KYLIE TAYLOR MD Ot 428. 0 CONGESTIVE HEART FAILURE NOS 09/28/2018 KYLIE TAYLOR MD Ot V58. 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 1 MALIGNANT NEOPLASM OF SUPRAGLOTTIS 09/28/2018 LILIAN TREJO DO Ot C34. 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 1 MALIGNANT NEOPLASM OF SUPRAGLOTTIS 09/28/2018 LILIAN TREJO DO Ot C34. 12 MALIGNANT NEOPLASM OF UPPER LOBE, LEFT B 09/28/2018 KAYCEE HASSAN VOLLEYBALL PLAYER Ot C32.1 MALIGNANT NEOPLASM OF SUPRAGLOTTIS 09/28/2018 KAYCEE HASSANP Ot C34.12 MALIGNANT NEOPLASM OF UPPER LOBE, LEFT B 09/28/2018 KAYCEE HASSANP Ot M25.552 PAIN IN LEFT HIP 09/28/2018 ANAIS ANGULO MD Ot C32.1 MALIGNANT NEOPLASM OF SUPRAGLOTTIS 09/28/2018 ANAIS ANGULO MD Ot Z09 ENCNTR FOR F/U EXAM AFT TRTMT FOR COND O 09/28/2018 ANAIS ANGULO MD Ot Z96.8 9 PRESENCE OF OTHER SPECIFIED FUNCTIONAL I 09/28/2018 SERGEI CUTLER, STEF Arriola Ot C32 .1 MALIGNANT NEOPLASM OF SUPRAGLOTTIS 09/28/2018 ROBERTO CLANCY VOLLEYBALL PLAYER Ot Z12.31 ENCNTR SCREEN MAMMOGRAM FOR MALIGNANT NE 09/28/2018 KAYCEE HASSAN VOLLEYBALL PLAYER Ot C32.1 MALIGNANT NEOPLASM OF SUPRAGLOTTIS 09/28/2018 KAYCEE HASSAN VOLLEYBALL PLAYER Ot C34.12 MALIGNANT NEOPLASM OF UPPER LOBE, LEFT B 09/28/2018 KAYCEE HASSAN VOLLEYBALL PLAYER Ot C32.1 MALIGNANT NEOPLASM OF SUPRAGLOTTIS 09/28/2018 KAYCEE HASSAN VOLLEYBALL PLAYER Ot C34.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 1 MALIGNANT NEOPLASM OF SUPRAGLOTTIS 10/21/2018 LILIAN TREJO DO Ot G47. 10 HYPERSOMNIA, UNSPECIFIED 10/21/2018 LILIAN TREJO DO Ot J43. 9 EMPHYSEMA, UNSPECIFIED 10/21/2018 LILIAN TREJO DO Ot R06. 02 SHORTNESS OF BREATH 10/21/2018 LILIAN TREJO DO Ot Z48. 89 ENCOUNTER FOR OTHER SPECIFIED SURGICAL A 10/21/2018 LILIAN TREJO DO Ot Z72. 0 TOBACCO USE 10/22/2018 NALINI JOHNS DO Ot 246.2 CYST OF THYROID 10/22/2018 NALINI JOHNS DO Ot 787.20 DYSPHAGIA, UNSPECIFIED 10/22/2018 STEF MAI MD Ot 241 .0 NONTOX UNINODULAR GOITER 10/22/2018 STEF MAI MD Ot 492 .8 EMPHYSEMA NEC 10/22/2018 STEF MAI MD Ot 784 .2 SWELLING IN HEAD NECK 10/22/2018 STEF MAI MD Ot 785 .6 ENLARGEMENT LYMPH NODES 10/22/2018 STEF MAI MD Ot 787.20 DYSPHAGIA, UNSPECIFIED 10/22/2018 STEF MAI MD Ot 240 .9 GOITER NOS 10/22/2018 STEF MAI MD Ot 780.79 OTH MALAISE FATIGUE 10/22/2018 STEF MAI MD Ot 784.42 DYSPHONIA 10/22/2018 ALBA RAMIREZ MD Ot 401. 9 HYPERTENSION NOS 10/22/2018 ALBA RAMIREZ MD Ot 414. 00 CORON ATHEROSCLER NOS TYPE VESSEL, NATIV 10/22/2018 ALBA RAMIREZ MD Ot 794. 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 1 MALIG HILARIO SUPRAGLOTTIS 10/22/2018 LEE LILLY BIRD Ot V72. 63 PRE-PROCEDURAL LABORATORY EXAMINATION 10/22/2018 LEE LILLY BIRD Ot V72. 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 10/22/2018 HASSANTONJAAH S VOLLEYBALL PLAYER Ot 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 10/22/2018 HASSAN HILAH S VOLLEYBALL PLAYER Ot 250.00 DIAB OLU WO COMPL, TYPE II OR UNSPEC TY 10/22/2018 HASSAN, HILAH S VOLLEYBALL PLAYER Ot 305.1 TOBACCO USE DISORDER 10/22/2018 HASSAN, HILAH S VOLLEYBALL PLAYER Ot 401.9 HYPERTENSION NOS 10/22/2018 HASSAN, HILAH S VOLLEYBALL PLAYER Ot 414.00 CORON ATHEROSCLER NOS TYPE VESSEL, NATIV 10/22/2018 HASSAN, HILAH S VOLLEYBALL PLAYER Ot 793.11 SOLITARY PULMONARY NODULE 10/22/2018 HASSAN, HILAH S VOLLEYBALL PLAYER Ot V45.81 AORTOCORONARY BYPASS 10/22/2018 HASSAN HILAH S VOLLEYBALL PLAYER Ot V58.67 LONG-TERM (CURRENT) USE OF INSULIN 10/22/2018 HASSAN, HILAH S VOLLEYBALL PLAYER Ot V58.69 OT MED,LT,CURRENT USE 10/22/2018 HASSAN HILAH S VOLLEYBALL PLAYER Ot 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 10/22/2018 HASSAN HILAH S VOLLEYBALL PLAYER Ot 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 10/22/2018 HASSAN HILAH S VOLLEYBALL PLAYER Ot 250.00 DIAB OLU WO COMPL, TYPE II OR UNSPEC TY 10/22/2018 HASSAN HILAH S VOLLEYBALL PLAYER Ot 305.1 TOBACCO USE DISORDER 10/22/2018 HASSAN, HILAH S VOLLEYBALL PLAYER Ot 401.9 HYPERTENSION NOS 10/22/2018 HASSAN, HILAH S VOLLEYBALL PLAYER Ot 414.00 CORON ATHEROSCLER NOS TYPE VESSEL, NATIV 10/22/2018 HASSAN, HILAH S VOLLEYBALL PLAYER Ot 793.11 SOLITARY PULMONARY NODULE 10/22/2018 HASSAN, HILAH S VOLLEYBALL PLAYER Ot V45.81 AORTOCORONARY BYPASS 10/22/2018 HASSAN, HILAH S VOLLEYBALL PLAYER Ot V58.67 LONG-TERM (CURRENT) USE OF INSULIN 10/22/2018 HASSAN HILAH S VOLLEYBALL PLAYER Ot V58.69 OTH MED,LT,CURRENT USE 10/22/2018 HASSAN, HILAH S VOLLEYBALL PLAYER Ot 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 10/22/2018 HASSAN, HILAH S VOLLEYBALL PLAYER Ot 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 10/22/2018 HASSAN, HILAH S VOLLEYBALL PLAYER Ot 250.00 DIAB OLU WO COMPL, TYPE II OR UNSPEC TY 10/22/2018 HASSAN HILAH S VOLLEYBALL PLAYER Ot 305.1 TOBACCO USE DISORDER 10/22/2018 HASSAN HILAH S VOLLEYBALL PLAYER Ot 401.9 HYPERTENSION NOS 10/22/2018 HASSAN, HILAH S VOLLEYBALL PLAYER Ot 414.00 CORON ATHEROSCLER NOS TYPE VESSEL, NATIV 10/22/2018 HASSAN HILAH S VOLLEYBALL PLAYER Ot 793.11 SOLITARY PULMONARY NODULE 10/22/2018 HASSAN HILAH S VOLLEYBALL PLAYER Ot V45.81 AORTOCORONARY BYPASS 10/22/2018 HASSAN HILAH S VOLLEYBALL PLAYER Ot V58.67 LONG-TERM (CURRENT) USE OF INSULIN 10/22/2018 HASSAN HILAH S VOLLEYBALL PLAYER Ot V58.69 OTH MED,LT,CURRENT USE 10/22/2018 HASSAN HILAH S VOLLEYBALL PLAYER Ot 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 10/22/2018 HASSAN HILAH S VOLLEYBALL PLAYER Ot 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 10/22/2018 HASSAN, HILAH S VOLLEYBALL PLAYER Ot 250.00 DIAB OLU WO COMPL, TYPE II OR UNSPEC TY 10/22/2018 HASSAN, HILAH S VOLLEYBALL PLAYER Ot 305.1 TOBACCO USE DISORDER 10/22/2018 HASSAN HILAH S VOLLEYBALL PLAYER Ot 401.9 HYPERTENSION NOS 10/22/2018 HASSAN HILAH S VOLLEYBALL PLAYER Ot 414.00 CORON ATHEROSCLER NOS TYPE VESSEL, NATIV 10/22/2018 HASSAN HILAH S VOLLEYBALL PLAYER Ot 793.11 SOLITARY PULMONARY NODULE 10/22/2018 HASSAN, HILAH S VOLLEYBALL PLAYER Ot V45.81 AORTOCORONARY BYPASS 10/22/2018 HASSAN, HILAH S VOLLEYBALL PLAYER Ot V58.67 LONG-TERM (CURRENT) USE OF INSULIN 10/22/2018 HASSAN, HILAH S VOLLEYBALL PLAYER Ot V58.69 OTH MED,LT,CURRENT USE 10/22/2018 HASSAN HILAH S VOLLEYBALL PLAYER Ot 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 10/22/2018 HASSAN, HILAH S VOLLEYBALL PLAYER Ot 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 10/22/2018 HASSAN, HILAH S VOLLEYBALL PLAYER Ot 250.00 DIAB OLU WO COMPL, TYPE II OR UNSPEC TY 10/22/2018 HASSAN, HILAH S VOLLEYBALL PLAYER Ot 305.1 TOBACCO USE DISORDER 10/22/2018 HASSAN, HILAH S VOLLEYBALL PLAYER Ot 401.9 HYPERTENSION NOS 10/22/2018 HASSAN, HILAH S VOLLEYBALL PLAYER Ot 414.00 CORON ATHEROSCLER NOS TYPE VESSEL, NATIV 10/22/2018 HASSAN, HILAH S VOLLEYBALL PLAYER Ot 793.11 SOLITARY PULMONARY NODULE 10/22/2018 HASSAN, HILAH S VOLLEYBALL PLAYER Ot V45.81 AORTOCORONARY BYPASS 10/22/2018 SONYA HILAH S VOLLEYBALL PLAYER Ot V58.67 LONG-TERM (CURRENT) USE OF INSULIN 10/22/2018 HASSAN, HILAH S VOLLEYBALL PLAYER Ot V58.69 OTH MED,LT,CURRENT USE 10/22/2018 SONYA HILAH S VOLLEYBALL PLAYER Ot 161.1 MALIG HILARIO SUPRAGLOTTIS 10/22/2018 HASSAN, HILAH S VOLLEYBALL PLAYER Ot 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 10/22/2018 HASSAN, HILAH S VOLLEYBALL PLAYER Ot 250.00 DIAB OLU WO COMPL, TYPE II OR UNSPEC TY 10/22/2018 HASSAN, HILAH S VOLLEYBALL PLAYER Ot 305.1 TOBACCO USE DISORDER 10/22/2018 HASSAN, HILAH S VOLLEYBALL PLAYER Ot 401.9 HYPERTENSION NOS 10/22/2018 HASSAN HILAH S VOLLEYBALL PLAYER Ot 414.00 CORON ATHEROSCLER NOS TYPE VESSEL, NATIV 10/22/2018 HASSAN HILAH S VOLLEYBALL PLAYER Ot 4 96 CHR AIRWAY OBSTRUCT NEC 10/22/2018 HASSAN HILAH S V[employer]LEYBALL PLAYER Ot 793.11 SOLITARY PULMONARY NODULE 10/22/2018 HASSAN HILAH S [employer]LEYBALL PLAYER Ot V45.81 AORTOCORONARY BYPASS 10/22/2018 HASSAN HILAH S [employer]LEY[employer]ALL PLAYER Ot V58.67 LONG-TERM (CURRENT) USE OF INSULIN 10/22/2018 HASSAN, HILAH S [employer]OLLEYBALL PLAYER Ot V58.69 OTH MED,LT,CURRENT USE 10/22/2018 SALOME STEVE Ot 161.1 MALIG HILARIO SUPRAGLOTTIS 10/22/2018 SALOME STEVE N Ot 496 CHR AIRWAY OBSTRUCT NEC 10/22/2018 SALOME STEVE N Ot 787.20 DYSPHAGIA, UNSPECIFIED 10/22/2018 SALOME STEVE N Ot 161.1 MALIG HILARIO SUPRAGLOTTIS 10/22/2018 RUPINDERZAK VOLLEYBALL PLAYER Ot 250.02 DIAB OLU WO COMPL, TYPE II OR UNSPEC TY 10/22/2018 HASSAN HILAH S [employer]LEYBALL PLAYER Ot 161.1 MALIG HILARIO SUPRAGLOTTIS 10/22/2018 HASSAN HILAH S [employer]LEY[employer] PLAYER Ot 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 10/22/2018 HASSAN, HILAH S V[employer]LEY[employer]ALL PLAYER Ot 250.00 DIAB OLU WO COMPL, TYPE II OR UNSPEC TY 10/22/2018 HASSAN, HILAH S [employer]LEY[employer]ALL PLAYER Ot 305.1 TOBACCO USE DISORDER 10/22/2018 HASSAN, HILAH S [employer]LEY[employer]ALL PLAYER Ot 401.9 HYPERTENSION NOS 10/22/2018 HASSAN, HILAH S VOLLEY[employer]ALL PLAYER Ot 414.00 CORON ATHEROSCLER NOS TYPE VESSEL, NATIV 10/22/2018 HASSAN HILAH S VOLLEYBALL PLAYER Ot 4 96 CHR AIRWAY OBSTRUCT NEC 10/22/2018 HASSAN HILAH S VOLLEYBALL PLAYER Ot 793.11 SOLITARY PULMONARY NODULE 10/22/2018 HASSAN HILAH S [employer]LEY[employer]ALL PLAYER Ot V45.81 AORTOCORONARY BYPASS 10/22/2018 HASSAN HILAH S V[employer]LEY[employer]ALL PLAYER Ot V58.67 LONG-TERM (CURRENT) USE OF INSULIN 10/22/2018 HASSAN HILAH S V[employer]LEY[employer]ALL PLAYER Ot V58.69 OTH MED,LT,CURRENT USE 10/22/2018 HASSAN HILAH S V[employer]LEY[employer]ALL PLAYER Ot 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 10/22/2018 HASSAN HILAH S V[employer]LEY[employer]ALL PLAYER Ot 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 10/22/2018 HASSAN, HILAH S VOLLEY[employer]ALL PLAYER Ot 250.00 DIAB OLU WO COMPL, TYPE II OR UNSPEC TY 10/22/2018 HASSAN HILAH S VOLLEY[employer]ALL PLAYER Ot 305.1 TOBACCO USE DISORDER 10/22/2018 HASSAN HILAH S V[employer]LEY[employer] PLAYER Ot 401.9 HYPERTENSION NOS 10/22/2018 HASASN, HILAH S VOLLEYBALL PLAYER Ot 414.00 CORON ATHEROSCLER NOS TYPE VESSEL, NATIV 10/22/2018 HASSAN HILAH S VOLLEYBALL PLAYER Ot 4 96 CHR AIRWAY OBSTRUCT NEC 10/22/2018 KAYCEE HASSAN VOLLEYBALL PLAYER Ot 793.11 SOLITARY PULMONARY NODULE 10/22/2018 KAYCEE HASSAN VOLLEYBALL PLAYER Ot V45.81 AORTOCORONARY BYPASS 10/22/2018 KAYCEE HASSAN VOLLEYBALL PLAYER Ot V58.67 LONG-TERM (CURRENT) USE OF INSULIN 10/22/2018 KAYCEE HASSAN VOLLEYBALL PLAYER Ot V58.69 OT MED,LT,CURRENT USE 10/22/2018 KAYCEE HASSAN VOLLEYBALL PLAYER Ot 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 4 HYPERLIPIDEMIA NEC/NOS 10/22/2018 KYLIE TAYLOR MD Ot 401. 9 HYPERTENSION NOS 10/22/2018 KYLIE TAYLOR MD Ot 414. 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 10/22/2018 KAYCEE HASSAN S VOLLEYBALL PLAYER Ot 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 10/22/2018 KAYCEE HASSAN S VOLLEYBALL PLAYER Ot 250.00 DIAB OLU WO COMPL, TYPE II OR UNSPEC TY 10/22/2018 KAYCEE HASSAN S VOLLEY[employer]ALL PLAYER Ot 305.1 TOBACCO USE DISORDER 10/22/2018 KAYCEE HASSAN S VOLLEYBALL PLAYER Ot 401.9 HYPERTENSION NOS 10/22/2018 KAYCEE HASSAN S VOLLEY[employer]ALL PLAYER Ot 414.00 CORON ATHEROSCLER NOS TYPE VESSEL, NATIV 10/22/2018 KAYCEE HASSAN S VOLLEYBALL PLAYER Ot 4 96 CHR AIRWAY OBSTRUCT NEC 10/22/2018 KAYCEE HASSAN S VOLLEYBALL PLAYER Ot 793.11 SOLITARY PULMONARY NODULE 10/22/2018 KAYCEE HASSAN VOLLEYBALL PLAYER Ot V45.81 AORTOCORONARY BYPASS 10/22/2018 KAYCEE HASSAN VOLLEYBALL PLAYER Ot V58.67 LONG-TERM (CURRENT) USE OF INSULIN 10/22/2018 SONYA KAYCEE S VOLLEYBALL PLAYER Ot V58.69 OTH MED,LT,CURRENT USE 10/22/2018 SONYA KAYCEE S VOLLEYBALL PLAYER Ot 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 10/22/2018 SONYA KAYCEE S VOLLEYBALL PLAYER Ot 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 10/22/2018 SONYA HILBOB S VOLLEYBALL PLAYER Ot 250.00 DIAB OLU WO COMPL, TYPE II OR UNSPEC TY 10/22/2018 HASSAN, HILBOB S VOLLEYBALL PLAYER Ot 305.1 TOBACCO USE DISORDER 10/22/2018 SONYA HILAH S VOLLEYBALL PLAYER Ot 401.9 HYPERTENSION NOS 10/22/2018 HASSAN, HILBOB S VOLLEYBALL PLAYER Ot 414.00 CORON ATHEROSCLER NOS TYPE VESSEL, NATIV 10/22/2018 KAYCEE HASSAN S VOLLEYBALL PLAYER Ot 4 96 CHR AIRWAY OBSTRUCT NEC 10/22/2018 KAYCEE HASSAN S VOLLEYBALL PLAYER Ot 793.11 SOLITARY PULMONARY NODULE 10/22/2018 KAYCEE HASSAN S VOLLEY[employer]ALL PLAYER Ot V45.81 AORTOCORONARY BYPASS 10/22/2018 SONYA KAYCEE S VOLLEYBALL PLAYER Ot V58.67 LONG-TERM (CURRENT) USE OF INSULIN 10/22/2018 SONYA KAYCEE S VOLLEYBALL PLAYER Ot V58.69 OTH MED,LT,CURRENT USE 10/22/2018 TONJA HASSANBOB S VOLLEYBALL PLAYER Ot V58.81 FIT/ADJ VASCULAR CATHETER 10/22/2018 KAYCEE HASSAN S V[employer]LEY[employer]ALL PLAYER Ot 141.9 MALIG HILARIO TONGUE NOS 10/22/2018 KAYCEE HASSAN S V[employer]LEY[employer] PLAYER Ot 793.11 SOLITARY PULMONARY NODULE 10/22/2018 Ot 786.6 CHES T SWELLING/MASS/LUMP 10/22/2018 Ot V72.63 PRE -PROCEDURAL LABORATORY EXAMINATION 10/22/2018 Ot V72.81 [id number] CARDIOVASCULAR 10/22/2018 Ot V72.83 EXA M PRE- OPERATIVE NEC 10/22/2018 DARIAN JESSICA MD Ot 162. 9 MAL HILARIO BRONCH/LUNG NOS 10/22/2018 DARIAN JESSICA MD Ot 414. 01 CORONARY ATHEROSCLEROSIS OF [place] CORON 10/22/2018 DARIAN JESSICA MD Ot 782. 3 EDEMA 10/22/2018 SALOME STEVE Ot 793.11 SOLITARY PULMONARY NODULE 10/22/2018 KYLIE TAYLOR MD Ot 250. 00 DIAB OLU WO COMPL, TYPE II OR UNSPEC TY 10/22/2018 KYLIE TAYLOR MD Ot 401. 9 HYPERTENSION NOS 10/22/2018 KYLIE TAYLOR MD Ot 414. 00 CORON ATHEROSCLER NOS TYPE VESSEL, NATIV 10/22/2018 KYLIE TAYLOR MD Ot 428. 0 CONGESTIVE HEART FAILURE NOS 10/22/2018 KYLIE TAYLOR MD Ot V58. 67 LONG-TERM (CURRENT) USE OF INSULIN 10/22/2018 KAYCEE HASSANP Ot 162.9 MAL HILARIO BRONCH/LUNG NOS 10/22/2018 KAYCEE HASSANP Ot C34.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 10/22/2018 KAYCEE HASSANP Ot C32.1 MALIGNANT NEOPLASM OF SUPRAGLOTTIS 10/22/2018 KAYCEE HASSAN Ot Z12.31 ENCNTR SCREEN MAMMOGRAM FOR MALIGNANT NE 10/22/2018 KAYCEE HASSANP Ot C32.1 MALIGNANT NEOPLASM OF SUPRAGLOTTIS 10/22/2018 LILLY LEE DO Ot Z01.818 ENCOUNTER FOR OTHER PREPROCEDURAL EXAMIN 10/22/2018 SALOME STEVE Ot C32.1 MALIGNANT NEOPLASM OF SUPRAGLOTTIS 10/22/2018 LILIAN TREJO DO Ot C32. 1 MALIGNANT NEOPLASM OF SUPRAGLOTTIS 10/22/2018 LILIAN TREJO DO Ot C34. 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 1 MALIGNANT NEOPLASM OF SUPRAGLOTTIS 10/22/2018 LILIAN TREJO DO Ot C34. 12 MALIGNANT NEOPLASM OF UPPER LOBE, LEFT B 10/22/2018 KAYCEE HASSAN VOLLEYBALL PLAYER Ot C32.1 MALIGNANT NEOPLASM OF SUPRAGLOTTIS 10/22/2018 KAYCEE HASSAN Ot C34.12 MALIGNANT NEOPLASM OF UPPER LOBE, LEFT B 10/22/2018 KAYCEE HASSANP Ot M25.552 PAIN IN LEFT HIP 10/22/2018 ANAIS ANGULO MD Ot C32.1 MALIGNANT NEOPLASM OF SUPRAGLOTTIS 10/22/2018 ANAIS ANGULO MD Ot Z09 ENCNTR FOR F/U EXAM AFT TRTMT FOR COND O 10/22/2018 ADELE CUTLER, ANAIS Nicholas Ot Z96.8 9 PRESENCE OF OTHER SPECIFIED FUNCTIONAL I 10/22/2018 SERGEI CUTLER, STEF Arriola Ot C32 .1 MALIGNANT NEOPLASM OF SUPRAGLOTTIS 10/22/2018 MADROBERTO Farley VOLLEYBALL PLAYER Ot Z12.31 ENCNTR SCREEN MAMMOGRAM FOR MALIGNANT NE 10/22/2018 HASSANKAYCEE Marinelli S VOLLEYBALL PLAYER Ot C32.1 MALIGNANT NEOPLASM OF SUPRAGLOTTIS 10/22/2018 HASSAN, HILBOB S VOLLEYBALL PLAYER Ot C34.12 MALIGNANT NEOPLASM OF UPPER LOBE, LEFT B 10/22/2018 HASSAN HILBOB S VOLLEYBALL PLAYER Ot C32.1 MALIGNANT NEOPLASM OF SUPRAGLOTTIS 10/22/2018 HASSAN HILBOB S VOLLEYBALL PLAYER Ot C34.12 MALIGNANT NEOPLASM OF UPPER LOBE, LEFT B 10/22/2018 MADLROBERTO L VOLLEYBALL PLAYER Ot R10.10 UPPER ABDOMINAL PAIN, UNSPECIFIED 10/22/2018 MADL, ROBERTO L VOLLEYBALL PLAYER Ot R74 .8 ABNORMAL LEVELS OF OTHER SERUM ENZYMES 10/22/2018 MADL, ROBERTO L VOLLEYBALL PLAYER Ot Z85.118 PERSONAL HISTORY OF MALIGNANT NEOPLASM O 10/22/2018 MADL ROBERTO L VOLLEYBALL PLAYER Ot Z85.21 PERSONAL HISTORY OF MALIGNANT NEOPLASM O 10/22/2018 MADL, ROBERTO L VOLLEYBALL PLAYER Ot Z90.49 ACQUIRED ABSENCE OF OTHER SPECIFIED PART 10/22/2018 SALOME STEVE Ot 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 9 IRON DEFICIENCY ANEMIA, UNSPECIFIED 10/23/2018 LILIAN TREJO DO Ot C32. 1 MALIGNANT NEOPLASM OF SUPRAGLOTTIS 10/23/2018 LILIAN TREJO DO Ot G47. 10 HYPERSOMNIA, UNSPECIFIED 10/23/2018 LILIAN TREJO DO Ot J43. 9 EMPHYSEMA, UNSPECIFIED 10/23/2018 LILIAN TREJO DO Ot R06. 02 SHORTNESS OF BREATH 10/23/2018 LILIAN TREJO DO Ot Z48. 89 ENCOUNTER FOR OTHER SPECIFIED SURGICAL A 10/23/2018 LILIAN TREJO DO Ot Z72. 0 TOBACCO USE 11/04/2018 MANAV GOTTI APRN Ot G47.33 OBSTRUCTIVE SLEEP APNEA (ADULT) (PEDIATR 12/23/2018 KAYCEE HASSAN VOLLEYBALL PLAYER Ot C18.9 MALIGNANT NEOPLASM OF COLON, UNSPECIFIED 12/23/2018 KAYCEE HASSAN VOLLEYBALL PLAYER Ot C78.00 SECONDARY MALIGNANT NEOPLASM OF UNSPECIF 12/23/2018 KAYCEE HASSAN VOLLEYBALL PLAYER Ot C79.89 SECONDARY MALIGNANT NEOPLASM OF OTHER SP 12/23/2018 KAYCEE HASSAN VOLLEYBALL PLAYER Ot Z90.2 ACQUIRED ABSENCE OF LUNG [PART OF] 12/23/2018 KAYCEE HASSAN S VOLLEYBALL PLAYER Ot Z90.49 ACQUIRED ABSENCE OF OTHER SPECIFIED PART 12/23/2018 KAYCEE HASSAN S VOLLEYBALL PLAYER Ot Z95.1 PRESENCE OF AORTOCORONARY BYPASS GRAFT 12/23/2018 KAYCEE HASSAN VOLLEYBALL PLAYER Ot Z95.828 PRESENCE OF OTHER VASCULAR IMPLANTS AND 12/27/2018 SALOME STEVE Ot 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 APPENDIX 12/28/2018 SALOME STEVE Ot 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 APPENDIX 01/01/2019 KAYCEE HASSAN VOLLEYBALL PLAYER Ot M47.812 SPONDYLOSIS W/O MYELOPATHY OR RADICULOPA 01/01/2019 KAYCEE HASSAN S VOLLEYBALL PLAYER Ot M48.02 SPINAL STENOSIS, CERVICAL REGION 01/01/2019 KAYCEE HASSAN VOLLEYBALL PLAYER Ot M50.30 OTHER CERVICAL DISC DEGENERATION, UNSP C 01/01/2019 KAYCEE HASSAN VOLLEYBALL PLAYER Ot Z85.118 PERSONAL HISTORY OF MALIGNANT NEOPLASM O 01/01/2019 KAYCEE HASSAN VOLLEYBALL PLAYER Ot Z85.89 PERSONAL HISTORY OF MALIGNANT NEOPLASM O 01/12/2019 KAYCEE HASSAN VOLLEYBALL PLAYER Ot C18.9 MALIGNANT NEOPLASM OF COLON, UNSPECIFIED 01/12/2019 KAYCEE HASSAN S VOLLEYBALL PLAYER Ot C78.00 SECONDARY MALIGNANT NEOPLASM OF UNSPECIF 01/12/2019 KAYCEE HASSAN S VOLLEYBALL PLAYER Ot C79.89 SECONDARY MALIGNANT NEOPLASM OF OTHER SP 01/12/2019 KAYCEE HASSAN S VOLLEYBALL PLAYER Ot Z90.2 ACQUIRED ABSENCE OF LUNG [PART OF] 01/12/2019 KAYCEE HASSAN S VOLLEYBALL PLAYER Ot Z90.49 ACQUIRED ABSENCE OF OTHER SPECIFIED PART 01/12/2019 KAYCEE HASSAN S VOLLEYBALL PLAYER Ot Z95.1 PRESENCE OF AORTOCORONARY BYPASS GRAFT 01/12/2019 HASSANKAYCEE Marinelli VOLLEYBALL PLAYER Ot Z95.828 PRESENCE OF OTHER VASCULAR IMPLANTS AND 01/22/2019 HASSANKAYCEE Marinelli VOLLEYBALL PLAYER Ot M47.812 SPONDYLOSIS W/O MYELOPATHY OR RADICULOPA 01/22/2019 TONJA HASSANBOB Marinelli VOLLEYBALL PLAYER Ot M48.02 SPINAL STENOSIS, CERVICAL REGION 01/22/2019 TONJA HASSANBOB Marinelli VOLLEYBALL PLAYER Ot M50.30 OTHER CERVICAL DISC DEGENERATION, UNSP C 01/22/2019 SONYA KAYCEE Marinelli VOLLEYBALL PLAYER Ot Z85.118 PERSONAL HISTORY OF MALIGNANT NEOPLASM O 01/22/2019 SONYA KAYCEE Marinelli VERNON Ot Z85.89 PERSONAL HISTORY OF MALIGNANT NEOPLASM O 01/26/2019 LILLY LEE DO Ot D50. 9 IRON DEFICIENCY ANEMIA, UNSPECIFIED 02/05/2019 NALINI JOHNS DO Ot 246.2 CYST OF THYROID 02/05/2019 NALINI JOHNS DO Ot 787.20 DYSPHAGIA, UNSPECIFIED 02/05/2019 STEF MAI MD Ot 241 .0 NONTOX UNINODULAR GOITER 02/05/2019 STEF MAI MD Ot 492 .8 EMPHYSEMA NEC 02/05/2019 STEF MAI MD Ot 784 .2 SWELLING IN HEAD NECK 02/05/2019 STEF MAI MD Ot 785 .6 ENLARGEMENT LYMPH NODES 02/05/2019 STEF MAI MD Ot 787.20 DYSPHAGIA, UNSPECIFIED 02/05/2019 STEF MAI MD Ot 240 .9 GOITER NOS 02/05/2019 STEF MAI MD Ot 780.79 OTH MALAISE FATIGUE 02/05/2019 STEF MAI MD Ot 784.42 DYSPHONIA 02/05/2019 ALBA RAMIREZ MD Ot 401. 9 HYPERTENSION NOS 02/05/2019 ALBA RAMIREZ MD Ot 414. 00 CORON ATHEROSCLER NOS TYPE VESSEL, NATIV 02/05/2019 ALBA RAMIREZ MD Ot 794. 30 ABN CARDIOVASC STUDY NOS 02/05/2019 SHARLENE CUTLER, MAGAN Delong Ot 161.1 MALIG HILARIO SUPRAGLOTTIS 02/05/2019 LILLY LEE DO Ot 161. 1 MALIG HILARIO SUPRAGLOTTIS 02/05/2019 LEE DO, LILLY D Ot V72. 63 PRE-PROCEDURAL LABORATORY EXAMINATION 02/05/2019 LILLY LEE DO Noah Ot V72. 84 EXAM PRE-OPERATIVE NOS 02/05/2019 HASSAN, HILAH S VOLLEYBALL PLAYER Ot 161.1 MALIG HILARIO SUPRAGLOTTIS 02/05/2019 HASSAN, HILAH S VOLLEYBALL PLAYER Ot 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 02/05/2019 HASSAN, HILAH S VOLLEYBALL PLAYER Ot 250.00 DIAB OLU WO COMPL, TYPE II OR UNSPEC TY 02/05/2019 HASSAN, HILAH S VOLLEYBALL PLAYER Ot 305.1 TOBACCO USE DISORDER 02/05/2019 HASSAN, HILAH S VOLLEYBALL PLAYER Ot 401.9 HYPERTENSION NOS 02/05/2019 HASSAN HILAH S VOLLEYBALL PLAYER Ot 414.00 CORON ATHEROSCLER NOS TYPE VESSEL, NATIV 02/05/2019 HASSAN HILAH S VOLLEYBALL PLAYER Ot 793.11 SOLITARY PULMONARY NODULE 02/05/2019 HASSAN, HILAH S VOLLEYBALL PLAYER Ot V45.81 AORTOCORONARY BYPASS 02/05/2019 HASSAN, HILAH S VOLLEYBALL PLAYER Ot V58.67 LONG-TERM (CURRENT) USE OF INSULIN 02/05/2019 HASSAN HILAH S VOLLEYBALL PLAYER Ot V58.69 OTH MED,LT,CURRENT USE 02/05/2019 HASSAN, HILAH S VOLLEYBALL PLAYER Ot 161.1 MALIG HILARIO SUPRAGLOTTIS 02/05/2019 HASSANTONJAAH S VOLLEYBALL PLAYER Ot 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 02/05/2019 HASSAN HILAH S VOLLEYBALL PLAYER Ot 250.00 DIAB OLU WO COMPL, TYPE II OR UNSPEC TY 02/05/2019 HASSAN HILAH S VOLLEYBALL PLAYER Ot 305.1 TOBACCO USE DISORDER 02/05/2019 HASSAN HILAH S VOLLEYBALL PLAYER Ot 401.9 HYPERTENSION NOS 02/05/2019 HASSAN HILAH S VOLLEYBALL PLAYER Ot 414.00 CORON ATHEROSCLER NOS TYPE VESSEL, NATIV 02/05/2019 HASSAN HILAH S VOLLEYBALL PLAYER Ot 793.11 SOLITARY PULMONARY NODULE 02/05/2019 HASSAN HILAH S VOLLEYBALL PLAYER Ot V45.81 AORTOCORONARY BYPASS 02/05/2019 HASSAN HILAH S VOLLEYBALL PLAYER Ot V58.67 LONG-TERM (CURRENT) USE OF INSULIN 02/05/2019 HASSAN HILAH S VOLLEYBALL PLAYER Ot V58.69 OTH MED,LT,CURRENT USE 02/05/2019 KAYCEE HASSAN S VOLLEYBALL PLAYER Ot 161.1 MALIG HILARIO SUPRAGLOTTIS 02/05/2019 HASSAN, HILAH S VOLLEYBALL PLAYER Ot 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 02/05/2019 HASSAN HILAH S VOLLEYBALL PLAYER Ot 250.00 DIAB OLU WO COMPL, TYPE II OR UNSPEC TY 02/05/2019 HASSAN, HILAH S VOLLEYBALL PLAYER Ot 305.1 TOBACCO USE DISORDER 02/05/2019 SONYA HILAH S VOLLEYBALL PLAYER Ot 401.9 HYPERTENSION NOS 02/05/2019 SONYA HILAH S VOLLEYBALL PLAYER Ot 414.00 CORON ATHEROSCLER NOS TYPE VESSEL, NATIV 02/05/2019 SONYA HILAH S VOLLEYBALL PLAYER Ot 793.11 SOLITARY PULMONARY NODULE 02/05/2019 SONYA HILAH S VOLLEYBALL PLAYER Ot V45.81 AORTOCORONARY BYPASS 02/05/2019 SONYA HILAH S VOLLEYBALL PLAYER Ot V58.67 LONG-TERM (CURRENT) USE OF INSULIN 02/05/2019 SONYA HILAH S VOLLEYBALL PLAYER Ot V58.69 OTH MED,LT,CURRENT USE 02/05/2019 TONJA HASSANAH S VOLLEYBALL PLAYER Ot 161.1 MALIG HILARIO SUPRAGLOTTIS 02/05/2019 SONYA HILAH S VOLLEYBALL PLAYER Ot 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 02/05/2019 SONYA HILAH S VOLLEYBALL PLAYER Ot 250.00 DIAB OLU WO COMPL, TYPE II OR UNSPEC TY 02/05/2019 SONYA HILAH S VOLLEYBALL PLAYER Ot 305.1 TOBACCO USE DISORDER 02/05/2019 TONJA HASSANAH S VOLLEYBALL PLAYER Ot 401.9 HYPERTENSION NOS 02/05/2019 SONYA HILAH S VOLLEYBALL PLAYER Ot 414.00 CORON ATHEROSCLER NOS TYPE VESSEL, NATIV 02/05/2019 SONYA HILAH S VOLLEYBALL PLAYER Ot 793.11 SOLITARY PULMONARY NODULE 02/05/2019 SONYA HILAH S VOLLEYBALL PLAYER Ot V45.81 AORTOCORONARY BYPASS 02/05/2019 SONYA HILAH S VOLLEYBALL PLAYER Ot V58.67 LONG-TERM (CURRENT) USE OF INSULIN 02/05/2019 SONYA HILAH S VOLLEYBALL PLAYER Ot V58.69 OTH MED,LT,CURRENT USE 02/05/2019 SONYA HILAH S VOLLEYBALL PLAYER Ot 161.1 MALIG HILARIO SUPRAGLOTTIS 02/05/2019 TONJA HASSANAH S VOLLEYBALL PLAYER Ot 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 02/05/2019 HASSAN, HILAH S VOLLEYBALL PLAYER Ot 250.00 DIAB OLU WO COMPL, TYPE II OR UNSPEC TY 02/05/2019 HASSAN, HILAH S VOLLEYBALL PLAYER Ot 305.1 TOBACCO USE DISORDER 02/05/2019 SONYA HILAH S VOLLEYBALL PLAYER Ot 401.9 HYPERTENSION NOS 02/05/2019 HASSAN HILAH S VOLLEYBALL PLAYER Ot 414.00 CORON ATHEROSCLER NOS TYPE VESSEL, NATIV 02/05/2019 SONYA HILAH S VOLLEYBALL PLAYER Ot 793.11 SOLITARY PULMONARY NODULE 02/05/2019 SONYA HILAH S VOLLEYBALL PLAYER Ot V45.81 AORTOCORONARY BYPASS 02/05/2019 SONYA HILAH S VOLLEYBALL PLAYER Ot V58.67 LONG-TERM (CURRENT) USE OF INSULIN 02/05/2019 SONYA HILAH S VOLLEYBALL PLAYER Ot V58.69 OTH MED,LT,CURRENT USE 02/05/2019 TONJA HASSANAH S VOLLEYBALL PLAYER Ot 161.1 MALIG HILARIO SUPRAGLOTTIS 02/05/2019 SONYA HILAH S VOLLEYBALL PLAYER Ot 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 02/05/2019 HASSAN HILAH S VOLLEYBALL PLAYER Ot 250.00 DIAB OLU WO COMPL, TYPE II OR UNSPEC TY 02/05/2019 SONYA HILAH S VOLLEYBALL PLAYER Ot 305.1 TOBACCO USE DISORDER 02/05/2019 HASSAN HILAH S VOLLEYBALL PLAYER Ot 401.9 HYPERTENSION NOS 02/05/2019 SONYA HILAH S VOLLEYBALL PLAYER Ot 414.00 CORON ATHEROSCLER NOS TYPE VESSEL, NATIV 02/05/2019 KAYCEE HASSAN S VOLLEYBALL PLAYER Ot 4 96 CHR AIRWAY OBSTRUCT NEC 02/05/2019 SONYA HILAH S VOLLEYBALL PLAYER Ot 793.11 SOLITARY PULMONARY NODULE 02/05/2019 SONYA HILAH S VOLLEYBALL PLAYER Ot V45.81 AORTOCORONARY BYPASS 02/05/2019 SONYA HILAH S VOLLEYBALL PLAYER Ot V58.67 LONG-TERM (CURRENT) USE OF INSULIN 02/05/2019 HASSAN HILAH S VOLLEYBALL PLAYER Ot V58.69 OTH MED,LT,CURRENT USE 02/05/2019 SALOME STEVE Ot 161.1 MALIG HILARIO SUPRAGLOTTIS 02/05/2019 POWER, BOBAN N Ot 496 CHR AIRWAY OBSTRUCT NEC 02/05/2019 SALOME STEVE Ot 787.20 DYSPHAGIA, UNSPECIFIED 02/05/2019 SALOME STEVE Ot 161.1 MALIG HILARIO SUPRAGLOTTIS 02/05/2019 JAYLYNJIMMYZAK LÓPEZ VOLLEYBALL PLAYER Ot 250.02 DIAB OLU WO COMPL, TYPE II OR UNSPEC TY 02/05/2019 HASSANKAYCEE Marinelli S VOLLEYBALL PLAYER Ot 161.1 MALIG HILARIO SUPRAGLOTTIS 02/05/2019 KAYCEE HASSAN S VOLLEYBALL PLAYER Ot 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 02/05/2019 SONYA HILAH S VOLLEYBALL PLAYER Ot 250.00 DIAB OLU WO COMPL, TYPE II OR UNSPEC TY 02/05/2019 SONYA HILAH S VOLLEYBALL PLAYER Ot 305.1 TOBACCO USE DISORDER 02/05/2019 SONYA HILAH S VOLLEYBALL PLAYER Ot 401.9 HYPERTENSION NOS 02/05/2019 SONYA HILAH S VOLLEYBALL PLAYER Ot 414.00 CORON ATHEROSCLER NOS TYPE VESSEL, NATIV 02/05/2019 KAYCEE HASSAN S VOLLEYBALL PLAYER Ot 4 96 CHR AIRWAY OBSTRUCT NEC 02/05/2019 KAYCEE HASSAN S VOLLEYBALL PLAYER Ot 793.11 SOLITARY PULMONARY NODULE 02/05/2019 KAYCEE HASSAN S VOLLEYBALL PLAYER Ot V45.81 AORTOCORONARY BYPASS 02/05/2019 KAYCEE HASSAN S VOLLEYBALL PLAYER Ot V58.67 LONG-TERM (CURRENT) USE OF INSULIN 02/05/2019 KAYCEE HASSAN S VOLLEYBALL PLAYER Ot V58.69 OTH MED,LT,CURRENT USE 02/05/2019 KAYCEE HASSAN S VOLLEYBALL PLAYER Ot 161.1 MALIG HILARIO SUPRAGLOTTIS 02/05/2019 TONJA HASSANAH S VOLLEYBALL PLAYER Ot 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 02/05/2019 HASSANTONJAAH S VOLLEYBALL PLAYER Ot 250.00 DIAB OLU WO COMPL, TYPE II OR UNSPEC TY 02/05/2019 SONYA HILAH S VOLLEYBALL PLAYER Ot 305.1 TOBACCO USE DISORDER 02/05/2019 SONYA HILAH S VOLLEYBALL PLAYER Ot 401.9 HYPERTENSION NOS 02/05/2019 HASSAN HILAH S VOLLEYBALL PLAYER Ot 414.00 CORON ATHEROSCLER NOS TYPE VESSEL, NATIV 02/05/2019 TONJA HASSANAH S VOLLEYBALL PLAYER Ot 4 96 CHR AIRWAY OBSTRUCT NEC 02/05/2019 KAYCEE HASSAN VOLLEYBALL PLAYER Ot 793.11 SOLITARY PULMONARY NODULE 02/05/2019 KAYCEE HASSANP Ot V45.81 AORTOCORONARY BYPASS 02/05/2019 KAYCEE HASSANP Ot V58.67 LONG-TERM (CURRENT) USE OF INSULIN 02/05/2019 KAYCEE HASSANP Ot V58.69 OTH MED,LT,CURRENT USE 02/05/2019 KAYCEE HASSAN VOLLEYBALL PLAYER Ot 161.1 MALIG HILARIO SUPRAGLOTTIS 02/05/2019 STEF MAI MD Ot 793.19 OTHER NONSPECIFIC ABNORMAL FINDING OF DAIS[place] 02/05/2019 STEF MAI MD Ot V72.63 PRE-PROCEDURAL LABORATORY EXAMINATION 02/05/2019 STEF MAI MD Ot V72.81 [id number] CARDIOVASCULAR 02/05/2019 STEF MAI MD Ot V74 .8 SCREEN-BACTERIAL DIS NEC 02/05/2019 KYILE TAYLOR MD Ot 272. 4 HYPERLIPIDEMIA NEC/NOS 02/05/2019 KYLIE TAYLOR MD Ot 401. 9 HYPERTENSION NOS 02/05/2019 KYLIE TAYLOR MD Ot 414. 00 CORON ATHEROSCLER NOS TYPE VESSEL, NATIV 02/05/2019 KAYCEE HASSAN VOLLEYBALL PLAYER Ot 161.1 MALIG HILARIO SUPRAGLOTTIS 02/05/2019 KAYCEE HASSAN VOLLEYBALL PLAYER Ot 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 02/05/2019 KAYCEE HASSAN VOLLEYBALL PLAYER Ot 250.00 DIAB OLU WO COMPL, TYPE II OR UNSPEC TY 02/05/2019 KAYCEE HASSAN VOLLEYBALL PLAYER Ot 305.1 TOBACCO USE DISORDER 02/05/2019 KAYCEE HASSAN VOLLEYBALL PLAYER Ot 401.9 HYPERTENSION NOS 02/05/2019 KAYCEE HASSAN VOLLEYBALL PLAYER Ot 414.00 CORON ATHEROSCLER NOS TYPE VESSEL, NATIV 02/05/2019 KAYCEE HASSAN VOLLEYBALL PLAYER Ot 4 96 CHR AIRWAY OBSTRUCT NEC 02/05/2019 KAYCEE HASSAN VOLLEYBALL PLAYER Ot 793.11 SOLITARY PULMONARY NODULE 02/05/2019 KAYCEE HASSANP Ot V45.81 AORTOCORONARY BYPASS 02/05/2019 KAYCEE HASSAN VOLLEYBALL PLAYER Ot V58.67 LONG-TERM (CURRENT) USE OF INSULIN 02/05/2019 KAYCEE HASSAN VOLLEYBALL PLAYER Ot V58.69 OTH MED,LT,CURRENT USE 02/05/2019 TONJA HASSANBOB Marinelli VOLLEYBALL PLAYER Ot 161.1 MALIG HILARIO SUPRAGLOTTIS 02/05/2019 KAYCEE HASSAN VOLLEYBALL PLAYER Ot 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 02/05/2019 TONJA HASSANBOB S VOLLEYBALL PLAYER Ot 250.00 DIAB OLU WO COMPL, TYPE II OR UNSPEC TY 02/05/2019 TONJA HASSANBOB S VOLLEYBALL PLAYER Ot 305.1 TOBACCO USE DISORDER 02/05/2019 TONJA HASSANBOB S VOLLEYBALL PLAYER Ot 401.9 HYPERTENSION NOS 02/05/2019 SONYA KAYCEE S VOLLEYBALL PLAYER Ot 414.00 CORON ATHEROSCLER NOS TYPE VESSEL, NATIV 02/05/2019 TONJA HASSANBOB Marinelli VOLLEYBALL PLAYER Ot 4 96 CHR AIRWAY OBSTRUCT NEC 02/05/2019 SONYA KAYCEE S VOLLEYBALL PLAYER Ot 793.11 SOLITARY PULMONARY NODULE 02/05/2019 TONJA HASSANBOB Marinelli VOLLEYBALL PLAYER Ot V45.81 AORTOCORONARY BYPASS 02/05/2019 TONJA HASSANBOB Marinelli VOLLEYBALL PLAYER Ot V58.67 LONG-TERM (CURRENT) USE OF INSULIN 02/05/2019 TONJA HASSANBOB Marinelli VOLLEYBALL PLAYER Ot V58.69 OTH MED,LT,CURRENT USE 02/05/2019 TONJA HASSANBOB Marinelli VOLLEYBALL PLAYER Ot V58.81 FIT/ADJ VASCULAR CATHETER 02/05/2019 SONYA KAYCEE S VOLLEYBALL PLAYER Ot 141.9 MALIG HILARIO TONGUE NOS 02/05/2019 SONYA KAYCEE S VOLLEYBALL PLAYER Ot 793.11 SOLITARY PULMONARY NODULE 02/05/2019 Ot 786.6 CHES T SWELLING/MASS/LUMP 02/05/2019 Ot V72.63 PRE -PROCEDURAL LABORATORY EXAMINATION 02/05/2019 Ot V72.81 [id number] CARDIOVASCULAR 02/05/2019 Ot V72.83 EXA M PRE- OPERATIVE NEC 02/05/2019 DARIAN JESSICA MD Ot 162. 9 MAL HILARIO BRONCH/LUNG NOS 02/05/2019 DARIAN JESSICA MD Ot 414. 01 CORONARY ATHEROSCLEROSIS OF [place] CORON 02/05/2019 DARIAN JESSICA MD Ot 782. 3 EDEMA 02/05/2019 SALOME STEVE Ot 793.11 SOLITARY PULMONARY NODULE 02/05/2019 CLAUDIA CUTLER, KYLIE Dawson Ot 250. 00 DIAB OLU WO COMPL, TYPE II OR UNSPEC TY 02/05/2019 CLAUDIA CUTLER, KYLIE Dawson Ot 401. 9 HYPERTENSION NOS 02/05/2019 CLAUDIA CUTLER, KYLIE Dawson Ot 414. 00 CORON ATHEROSCLER NOS TYPE VESSEL, NATIV 02/05/2019 CLAUDIA CUTLER, KYLIE Dawson Ot 428. 0 CONGESTIVE HEART FAILURE NOS 02/05/2019 KYLIE TAYLOR MD Ot V58. 67 LONG-TERM (CURRENT) USE OF INSULIN 02/05/2019 KAYCEE HASSAN Ot 162.9 MAL HILARIO BRONCH/LUNG NOS 02/05/2019 KAYCEE HASSAN Ot C34.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 02/05/2019 KAYCEE HASSAN Ot C32.1 MALIGNANT NEOPLASM OF SUPRAGLOTTIS 02/05/2019 KAYCEE HASSAN Ot Z12.31 ENCNTR SCREEN MAMMOGRAM FOR MALIGNANT NE 02/05/2019 KAYCEE HASSAN Ot C32.1 MALIGNANT NEOPLASM OF SUPRAGLOTTIS 02/05/2019 LILLY LEE DO Ot Z01.818 ENCOUNTER FOR OTHER PREPROCEDURAL EXAMIN 02/05/2019 SALOME STEVE Ot C32.1 MALIGNANT NEOPLASM OF SUPRAGLOTTIS 02/05/2019 LILIAN TREJO DO Ot C32. 1 MALIGNANT NEOPLASM OF SUPRAGLOTTIS 02/05/2019 LILIAN TREJO DO Ot C34. 12 MALIGNANT NEOPLASM OF UPPER LOBE, LEFT B 02/05/2019 LILIAN TREJO DO Ot C32. 1 MALIGNANT NEOPLASM OF SUPRAGLOTTIS 02/05/2019 LILIAN TREJO DO Ot C34. 12 MALIGNANT NEOPLASM OF UPPER LOBE, LEFT B 02/05/2019 KAYCEE HASSAN Ot C32.1 MALIGNANT NEOPLASM OF SUPRAGLOTTIS 02/05/2019 KAYCEE HASSAN Ot C34.12 MALIGNANT NEOPLASM OF UPPER LOBE, LEFT B 02/05/2019 KAYCEE HASSANP Ot M25.552 PAIN IN LEFT HIP 02/05/2019 ADELE CUTLER, ANAIS Nicholas Ot C32.1 MALIGNANT NEOPLASM OF SUPRAGLOTTIS 02/05/2019 ADELE CUTLER, ANAIS Nicholas Ot Z09 ENCNTR FOR F/U EXAM AFT TRTMT FOR COND O 02/05/2019 ADELE CUTLER, ANAIS Nicholas Ot Z96.8 9 PRESENCE OF OTHER SPECIFIED FUNCTIONAL I 02/05/2019 SERGEI CUTLER, STEF Arriola Ot C32 .1 MALIGNANT NEOPLASM OF SUPRAGLOTTIS 02/05/2019 MADLROBERTO VOLLEYBALL PLAYER Ot Z12.31 ENCNTR SCREEN MAMMOGRAM FOR MALIGNANT NE 02/05/2019 HASSANKAYCEE S VOLLEYBALL PLAYER Ot C32.1 MALIGNANT NEOPLASM OF SUPRAGLOTTIS 02/05/2019 HASSAN HILAH S VOLLEYBALL PLAYER Ot C34.12 MALIGNANT NEOPLASM OF UPPER LOBE, LEFT B 02/05/2019 HASSAN HILAH S VOLLEYBALL PLAYER Ot C32.1 MALIGNANT NEOPLASM OF SUPRAGLOTTIS 02/05/2019 HASSAN HILAH S VOLLEYBALL PLAYER Ot C34.12 MALIGNANT NEOPLASM OF UPPER LOBE, LEFT B 02/05/2019 MADLROBERTO L VOLLEYBALL PLAYER Ot R10.10 UPPER ABDOMINAL PAIN, UNSPECIFIED 02/05/2019 MADL, ROBERTO L VOLLEYBALL PLAYER Ot R74 .8 ABNORMAL LEVELS OF OTHER SERUM ENZYMES 02/05/2019 MADL, ROBERTO L [employer]OLLEYBALL PLAYER Ot Z85.118 PERSONAL HISTORY OF MALIGNANT NEOPLASM O 02/05/2019 MADL, ROBERTO L [employer]OLLEYBALL PLAYER Ot Z85.21 PERSONAL HISTORY OF MALIGNANT NEOPLASM O 02/05/2019 MADL, ROBERTO L [employer]OLLEYBALL PLAYER Ot Z90.49 ACQUIRED ABSENCE OF OTHER SPECIFIED PART 02/05/2019 LILLY LEE DO Ot D50. 9 IRON DEFICIENCY ANEMIA, UNSPECIFIED 02/05/2019 SALOME STEVE Ot 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 APPENDIX 02/23/2019 SALOME STEVE Ot 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 APPENDIX 04/20/2019 MANAV GOTTI APRN Ot M47.812 SPONDYLOSIS W/O MYELOPATHY OR RADICULOPA 04/20/2019 MANAV GOTTI APRN Ot R05 COUGH 04/20/2019 MANAV GOTTI APRN Ot R91.8 OTHER NONSPECIFIC ABNORMAL FINDING OF DAISHA 04/20/2019 MANAV GOTTI APRN Ot Z90.2 ACQUIRED ABSENCE OF LUNG [PART OF] 04/20/2019 MANAV GOTTI APRN Ot Z98.890 OTHER SPECIFIED POSTPROCEDURAL STATES 05/06/2019 SALOME STEVE Ot 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 APPENDIX 05/06/2019 SALOME STEVE Ot Z45.2 ENCOUNTER FOR ADJUSTMENT AND MANAGEMENT 05/07/2019 MANAV GOTTI FIRE CHIEF DEPUTY Ot M47.812 SPONDYLOSIS W/O MYELOPATHY OR RADICULOPA 05/07/2019 MANAV GOTTI FIRE CHIEF DEPUTY Ot R05 COUGH 05/07/2019 MANAV GOTTI FIRE CHIEF DEPUTY Ot R91.8 OTHER NONSPECIFIC ABNORMAL FINDING OF DAISHA 05/07/2019 MANAV GOTTI FIRE CHIEF DEPUTY Ot Z90.2 ACQUIRED ABSENCE OF LUNG [PART OF] 05/07/2019 MANAV GOTTI FIRE CHIEF DEPUTY Ot Z98.890 OTHER SPECIFIED POSTPROCEDURAL STATES 05/07/2019 SALOME STEVE Ot 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 APPENDIX 05/07/2019 SALOME STEVE N Ot Z45.2 ENCOUNTER FOR ADJUSTMENT AND MANAGEMENT 06/21/2019 KAYCEE HASSAN VOLLEYBALL PLAYER Ot C32.1 MALIGNANT NEOPLASM OF SUPRAGLOTTIS 06/21/2019 KAYCEE HASSAN VOLLEYBALL PLAYER Ot C34.12 MALIGNANT NEOPLASM OF UPPER LOBE, LEFT B 06/21/2019 KAYCEE HASSAN VOLLEYBALL PLAYER Ot M25.552 PAIN IN LEFT HIP 06/21/2019 ANAIS ANGULO MD Ot C32.1 MALIGNANT NEOPLASM OF SUPRAGLOTTIS 06/21/2019 ANAIS ANGULO MD Ot Z09 ENCNTR FOR F/U EXAM AFT TRTMT FOR COND O 06/21/2019 ANAIS ANGULO MD Ot Z96.8 9 PRESENCE OF OTHER SPECIFIED FUNCTIONAL I 06/21/2019 SERGEI CUTLER, STEF Arriola Ot C32 .1 MALIGNANT NEOPLASM OF SUPRAGLOTTIS 06/21/2019 ROBERTO CLANCY VOLLEYBALL PLAYER Ot Z12.31 ENCNTR SCREEN MAMMOGRAM FOR MALIGNANT NE 06/21/2019 KAYCEE HASSAN VOLLEYBALL PLAYER Ot C32.1 MALIGNANT NEOPLASM OF SUPRAGLOTTIS 06/21/2019 KAYCEE HASSAN VOLLEYBALL PLAYER Ot C34.12 MALIGNANT NEOPLASM OF UPPER LOBE, LEFT B 06/21/2019 KAYCEE HASSAN VOLLEYBALL PLAYER Ot C32.1 MALIGNANT NEOPLASM OF SUPRAGLOTTIS 06/21/2019 KAYCEE HASSAN VOLLEYBALL PLAYER Ot C34.12 MALIGNANT NEOPLASM OF UPPER LOBE, LEFT B 06/21/2019 SALOME STEVE N Ot C32.1 MALIGNANT NEOPLASM OF SUPRAGLOTTIS 06/21/2019 SALOME STEVE N Ot C34.12 MALIGNANT NEOPLASM OF UPPER LOBE, LEFT B 06/21/2019 SALOME STEVE N Ot R74.8 ABNORMAL LEVELS OF OTHER SERUM ENZYMES 06/21/2019 MADL, ROBERTO L VOLLEYBALL PLAYER Ot R10.10 UPPER ABDOMINAL PAIN, UNSPECIFIED 06/21/2019 MADL, ROBERTO L VOLLEYBALL PLAYER Ot R74 .8 ABNORMAL LEVELS OF OTHER SERUM ENZYMES 06/21/2019 MADL, ROBERTO L VOLLEYBALL PLAYER Ot Z85.118 PERSONAL HISTORY OF MALIGNANT NEOPLASM O 06/21/2019 MADL, ROBERTO L VOLLEYBALL PLAYER Ot Z85.21 PERSONAL HISTORY OF MALIGNANT NEOPLASM O 06/21/2019 MADL, ROBERTO L VOLLEYBALL PLAYER Ot Z90.49 ACQUIRED ABSENCE OF OTHER SPECIFIED PART 06/21/2019 MADL, ROBERTO L VOLLEYBALL PLAYER Ot Z12.31 ENCNTR SCREEN MAMMOGRAM FOR MALIGNANT NE 06/21/2019 TAMRA MEAD FIRE CHIEF DEPUTY Ot Z12.31 ENCNTR SCREEN MAMMOGRAM FOR MALIGNANT NE 06/21/2019 LILLY LEE DO Ot D50. 9 IRON DEFICIENCY ANEMIA, UNSPECIFIED 06/21/2019 MANAV GOTTI FIRE CHIEF DEPUTY Ot M47.812 SPONDYLOSIS W/O MYELOPATHY OR RADICULOPA 06/21/2019 MANAV GOTTI FIRE CHIEF DEPUTY Ot R05 COUGH 06/21/2019 MANAV GOTTI FIRE CHIEF DEPUTY Ot R91.8 OTHER NONSPECIFIC ABNORMAL FINDING OF DAISHA 06/21/2019 MANAV GOTTI FIRE CHIEF DEPUTY Ot Z90.2 ACQUIRED ABSENCE OF LUNG [PART OF] 06/21/2019 MANAV GOTTI FIRE CHIEF DEPUTY Ot Z98.890 OTHER SPECIFIED POSTPROCEDURAL STATES 06/21/2019 KAYCEE HASSAN VOLLEYBALL PLAYER Ot C18.9 MALIGNANT NEOPLASM OF COLON, UNSPECIFIED 06/21/2019 KAYCEE HASSAN VOLLEYBALL PLAYER Ot C78.00 SECONDARY MALIGNANT NEOPLASM OF UNSPECIF 06/21/2019 KAYCEE HASSAN VOLLEYBALL PLAYER Ot C79.89 SECONDARY MALIGNANT NEOPLASM OF OTHER SP 06/21/2019 KAYCEE HASSAN VOLLEYBALL PLAYER Ot Z90.2 ACQUIRED ABSENCE OF LUNG [PART OF] 06/21/2019 HASSANKAYCEE Marinelli S VOLLEYBALL PLAYER Ot Z90.49 ACQUIRED ABSENCE OF OTHER SPECIFIED PART 06/21/2019 HASSAN KAYCEE S VOLLEYBALL PLAYER Ot Z95.1 PRESENCE OF AORTOCORONARY BYPASS GRAFT 06/21/2019 HASSAN, KAYCEE S VOLLEYBALL PLAYER Ot Z95.828 PRESENCE OF OTHER VASCULAR IMPLANTS AND 06/21/2019 HASSAN, KAYCEE S VOLLEYBALL PLAYER Ot M47.812 SPONDYLOSIS W/O MYELOPATHY OR RADICULOPA 06/21/2019 HASSAN HILBOB S VOLLEYBALL PLAYER Ot M48.02 SPINAL STENOSIS, CERVICAL REGION 06/21/2019 HASSAN KAYCEE S VOLLEYBALL PLAYER Ot M50.30 OTHER CERVICAL DISC DEGENERATION, UNSP C 06/21/2019 SONYA KAYCEE S VOLLEYBALL PLAYER Ot Z85.118 PERSONAL HISTORY OF MALIGNANT NEOPLASM O 06/21/2019 SONYA KAYCEE S VOLLEYBALL PLAYER Ot Z85.89 PERSONAL HISTORY OF MALIGNANT NEOPLASM O 06/21/2019 SALOME STEVE Ot 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 APPENDIX 06/21/2019 SALOME STEVE Ot Z45.2 ENCOUNTER FOR ADJUSTMENT AND MANAGEMENT 06/21/2019 MANAV GOTTI APRN Ot G47.33 OBSTRUCTIVE SLEEP APNEA (ADULT) (PEDIATR 06/22/2019 SALOME STEVE Ot 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 APPENDIX 06/22/2019 SALOME STEVE N Ot Z45.2 ENCOUNTER FOR ADJUSTMENT AND MANAGEMENT 06/22/2019 SONYA KAYCEE S VOLLEYBALL PLAYER Ot C18.9 MALIGNANT NEOPLASM OF COLON, UNSPECIFIED 06/22/2019 SONYA KAYCEE S VOLLEYBALL PLAYER Ot C78.00 SECONDARY MALIGNANT NEOPLASM OF UNSPECIF 06/22/2019 SONYA KAYCEE S VOLLEYBALL PLAYER Ot C79.89 SECONDARY MALIGNANT NEOPLASM OF OTHER SP 06/22/2019 SONYA KAYCEE S VOLLEYBALL PLAYER Ot Z90.2 ACQUIRED ABSENCE OF LUNG [PART OF] 06/22/2019 SONYA KAYCEE S VOLLEYBALL PLAYER Ot Z90.49 ACQUIRED ABSENCE OF OTHER SPECIFIED PART 06/22/2019 SONYA KAYCEE S VOLLEYBALL PLAYER Ot Z95.1 PRESENCE OF AORTOCORONARY BYPASS GRAFT 06/22/2019 HASSAN, KAYCEE S VOLLEYBALL PLAYER Ot Z95.828 PRESENCE OF OTHER VASCULAR IMPLANTS AND 06/22/2019 HASSAN, HILAH S VOLLEYBALL PLAYER Ot M47.812 SPONDYLOSIS W/O MYELOPATHY OR RADICULOPA 06/22/2019 SONYA KAYCEE Marinelli VOLLEYBALL PLAYER Ot M48.02 SPINAL STENOSIS, CERVICAL REGION 06/22/2019 HASSAN KAYCEE Marinelli VOLLEYBALL PLAYER Ot M50.30 OTHER CERVICAL DISC DEGENERATION, UNSP C 06/22/2019 KAYCEE HASSAN VOLLEYBALL PLAYER Ot Z85.118 PERSONAL HISTORY OF MALIGNANT NEOPLASM O 06/22/2019 KAYCEE HASSAN VOLLEYBALL PLAYER Ot Z85.89 PERSONAL HISTORY OF MALIGNANT NEOPLASM O 06/23/2019 SALOME STEVE N Ot 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 APPENDIX 06/23/2019 SALOME STEVE N Ot Z45.2 ENCOUNTER FOR ADJUSTMENT AND MANAGEMENT 06/30/2019 SALOME STEVE N Ot 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 APPENDIX 06/30/2019 SALOME STEVE N Ot Z45.2 ENCOUNTER FOR ADJUSTMENT AND MANAGEMENT 07/05/2019 BLAKE CUTLER, CODEY Nicholas Ot Z12.31 ENCNTR SCREEN MAMMOGRAM FOR MALIGNANT NE 07/05/2019 SONYA KAYCEE Marinelli VOLLEYBALL PLAYER Ot C32.1 MALIGNANT NEOPLASM OF SUPRAGLOTTIS 07/05/2019 SONYA KAYCEE Marinelli VOLLEYBALL PLAYER Ot C34.12 MALIGNANT NEOPLASM OF UPPER LOBE, LEFT B 07/05/2019 SONYA KYACEE Marinelli VOLLEYBALL PLAYER Ot M25.552 PAIN IN LEFT HIP 07/05/2019 ANAIS ANGULO MD Ot C32.1 MALIGNANT NEOPLASM OF SUPRAGLOTTIS 07/05/2019 ANAIS ANGULO MD Ot Z09 ENCNTR FOR F/U EXAM AFT TRTMT FOR COND O 07/05/2019 ANAIS ANGULO MD Ot Z96.8 9 PRESENCE OF OTHER SPECIFIED FUNCTIONAL I 07/05/2019 SERGEI CUTLER, STEF Arriola Ot C32 .1 MALIGNANT NEOPLASM OF SUPRAGLOTTIS 07/05/2019 ROBERTO CLANCY VOLLEYBALL PLAYER Ot Z12.31 ENCNTR SCREEN MAMMOGRAM FOR MALIGNANT NE 07/05/2019 SONYA KAYCEE Marinelli VOLLEYBALL PLAYER Ot C32.1 MALIGNANT NEOPLASM OF SUPRAGLOTTIS 07/05/2019 SONYA KAYCEE S VOLLEYBALL PLAYER Ot C34.12 MALIGNANT NEOPLASM OF UPPER LOBE, LEFT B 07/05/2019 SONYA KAYCEE S VOLLEYBALL PLAYER Ot C32.1 MALIGNANT NEOPLASM OF SUPRAGLOTTIS 07/05/2019 KAYCEE HASSAN VOLLEYBALL PLAYER Ot C34.12 MALIGNANT NEOPLASM OF UPPER LOBE, LEFT B 07/05/2019 SALOME STEVE N Ot C32.1 MALIGNANT NEOPLASM OF SUPRAGLOTTIS 07/05/2019 SALOME STEVE N Ot C34.12 MALIGNANT NEOPLASM OF UPPER LOBE, LEFT B 07/05/2019 SALOME STEVE N Ot R74.8 ABNORMAL LEVELS OF OTHER SERUM ENZYMES 07/05/2019 MADL, ROBERTO L VOLLEYBALL PLAYER Ot R10.10 UPPER ABDOMINAL PAIN, UNSPECIFIED 07/05/2019 MADL, ROBERTO L VOLLEYBALL PLAYER Ot R74 .8 ABNORMAL LEVELS OF OTHER SERUM ENZYMES 07/05/2019 MADL, ROBERTO L VOLLEYBALL PLAYER Ot Z85.118 PERSONAL HISTORY OF MALIGNANT NEOPLASM O 07/05/2019 MADL, ROBERTO L VOLLEYBALL PLAYER Ot Z85.21 PERSONAL HISTORY OF MALIGNANT NEOPLASM O 07/05/2019 MADL, ROBERTO L VOLLEYBALL PLAYER Ot Z90.49 ACQUIRED ABSENCE OF OTHER SPECIFIED PART 07/05/2019 MADL, ROBERTO L VOLLEYBALL PLAYER Ot Z12.31 ENCNTR SCREEN MAMMOGRAM FOR MALIGNANT NE 07/05/2019 TAMRA MEAD FIRE CHIEF DEPUTY Ot Z12.31 ENCNTR SCREEN MAMMOGRAM FOR MALIGNANT NE 07/05/2019 LILLY LEE DO Ot D50. 9 IRON DEFICIENCY ANEMIA, UNSPECIFIED 07/05/2019 MANAV GOTTI FIRE CHIEF DEPUTY Ot M47.812 SPONDYLOSIS W/O MYELOPATHY OR RADICULOPA 07/05/2019 MANAV GOTTI FIRE CHIEF DEPUTY Ot R05 COUGH 07/05/2019 MANAV GOTTI FIRE CHIEF DEPUTY Ot R91.8 OTHER NONSPECIFIC ABNORMAL FINDING OF [place]ISHA 07/05/2019 MANAV GOTTI FIRE CHIEF DEPUTY Ot Z90.2 ACQUIRED ABSENCE OF LUNG [PART OF] 07/05/2019 MANAV GOTTI FIRE CHIEF DEPUTY Ot Z98.890 OTHER SPECIFIED POSTPROCEDURAL STATES 07/05/2019 KAYCEE HASSAN S VOLLEYBALL PLAYER Ot C18.9 MALIGNANT NEOPLASM OF COLON, UNSPECIFIED 07/05/2019 KAYCEE HASSAN VOLLEYBALL PLAYER Ot C78.00 SECONDARY MALIGNANT NEOPLASM OF UNSPECIF 07/05/2019 KAYCEE HASSAN S VOLLEYBALL PLAYER Ot C79.89 SECONDARY MALIGNANT NEOPLASM OF OTHER SP 07/05/2019 KAYCEE HASSAN VOLLEYBALL PLAYER Ot Z90.2 ACQUIRED ABSENCE OF LUNG [PART OF] 07/05/2019 KAYCEE HASSAN VOLLEYBALL PLAYER Ot Z90.49 ACQUIRED ABSENCE OF OTHER SPECIFIED PART 07/05/2019 KAYCEE HASSAN VOLLEYBALL PLAYER Ot Z95.1 PRESENCE OF AORTOCORONARY BYPASS GRAFT 07/05/2019 KAYCEE HASSAN VOLLEYBALL PLAYER Ot Z95.828 PRESENCE OF OTHER VASCULAR IMPLANTS AND 07/05/2019 KAYCEE HASSAN VOLLEYBALL PLAYER Ot M47.812 SPONDYLOSIS W/O MYELOPATHY OR RADICULOPA 07/05/2019 KAYCEE HASSAN VOLLEYBALL PLAYER Ot M48.02 SPINAL STENOSIS, CERVICAL REGION 07/05/2019 KAYCEE HASSAN VOLLEYBALL PLAYER Ot M50.30 OTHER CERVICAL DISC DEGENERATION, UNSP C 07/05/2019 KAYCEE HASSAN VOLLEYBALL PLAYER Ot Z85.118 PERSONAL HISTORY OF MALIGNANT NEOPLASM O 07/05/2019 KAYCEE HASSAN VOLLEYBALL PLAYER Ot Z85.89 PERSONAL HISTORY OF MALIGNANT NEOPLASM O 07/05/2019 SALOME STEVE Ot 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 APPENDIX 07/05/2019 SALOME STEVE Ot Z45.2 ENCOUNTER FOR ADJUSTMENT AND MANAGEMENT 07/05/2019 BLAKE CUTLER, CODEY Nicholas Ot Z12.31 ENCNTR SCREEN MAMMOGRAM FOR MALIGNANT NE 07/05/2019 KAYCEE HASSAN VOLLEYBALL PLAYER Ot C32.1 MALIGNANT NEOPLASM OF SUPRAGLOTTIS 07/05/2019 KAYCEE HASSAN VOLLEYBALL PLAYER Ot C34.12 MALIGNANT NEOPLASM OF UPPER LOBE, LEFT B 07/05/2019 KAYCEE HASSAN VOLLEYBALL PLAYER Ot M25.552 PAIN IN LEFT HIP 07/05/2019 ANAIS ANGULO MD Ot C32.1 MALIGNANT NEOPLASM OF SUPRAGLOTTIS 07/05/2019 ANAIS ANGULO MD Ot Z09 ENCNTR FOR F/U EXAM AFT TRTMT FOR COND O 07/05/2019 ANAIS ANGULO MD Ot Z96.8 9 PRESENCE OF OTHER SPECIFIED FUNCTIONAL I 07/05/2019 SERGEI CUTLER, STEF Arriola Ot C32 .1 MALIGNANT NEOPLASM OF SUPRAGLOTTIS 07/05/2019 ROBERTO CLANCY VOLLEYBALL PLAYER Ot Z12.31 ENCNTR SCREEN MAMMOGRAM FOR MALIGNANT NE 07/05/2019 KAYCEE HASSAN S VOLLEYBALL PLAYER Ot C32.1 MALIGNANT NEOPLASM OF SUPRAGLOTTIS 07/05/2019 KAYCEE HASSAN S VOLLEYBALL PLAYER Ot C34.12 MALIGNANT NEOPLASM OF UPPER LOBE, LEFT B 07/05/2019 KAYCEE HASSAN S VOLLEYBALL PLAYER Ot C32.1 MALIGNANT NEOPLASM OF SUPRAGLOTTIS 07/05/2019 KAYCEE HASSAN S VOLLEYBALL PLAYER Ot C34.12 MALIGNANT NEOPLASM OF UPPER LOBE, LEFT B 07/05/2019 SALOME STEVE N Ot C32.1 MALIGNANT NEOPLASM OF SUPRAGLOTTIS 07/05/2019 SALOME STEVE N Ot C34.12 MALIGNANT NEOPLASM OF UPPER LOBE, LEFT B 07/05/2019 SALOME STEVE N Ot R74.8 ABNORMAL LEVELS OF OTHER SERUM ENZYMES 07/05/2019 MADL, ROBERTO L VOLLEYBALL PLAYER Ot R10.10 UPPER ABDOMINAL PAIN, UNSPECIFIED 07/05/2019 MADL, ROBERTO L VOLLEYBALL PLAYER Ot R74 .8 ABNORMAL LEVELS OF OTHER SERUM ENZYMES 07/05/2019 MADL, ROBERTO L VOLLEYBALL PLAYER Ot Z85.118 PERSONAL HISTORY OF MALIGNANT NEOPLASM O 07/05/2019 MADL, ROBERTO L VOLLEYBALL PLAYER Ot Z85.21 PERSONAL HISTORY OF MALIGNANT NEOPLASM O 07/05/2019 MADL, ROBERTO L VOLLEYBALL PLAYER Ot Z90.49 ACQUIRED ABSENCE OF OTHER SPECIFIED PART 07/05/2019 MADL, ROBERTO L VOLLEYBALL PLAYER Ot Z12.31 ENCNTR SCREEN MAMMOGRAM FOR MALIGNANT NE 07/05/2019 TAMRA MEAD FIRE CHIEF DEPUTY Ot Z12.31 ENCNTR SCREEN MAMMOGRAM FOR MALIGNANT NE 07/05/2019 LILLY LEE DO Ot D50. 9 IRON DEFICIENCY ANEMIA, UNSPECIFIED 07/05/2019 MANAV GOTTI FIRE CHIEF DEPUTY Ot M47.812 SPONDYLOSIS W/O MYELOPATHY OR RADICULOPA 07/05/2019 MANAV GOTTI FIRE CHIEF DEPUTY Ot R05 COUGH 07/05/2019 MANAV GOTTI FIRE CHIEF DEPUTY Ot R91.8 OTHER NONSPECIFIC ABNORMAL FINDING OF DAISHA 07/05/2019 MANAV GOTTI FIRE CHIEF DEPUTY Ot Z90.2 ACQUIRED ABSENCE OF LUNG [PART OF] 07/05/2019 MANAV GOTTI FIRE CHIEF DEPUTY Ot Z98.890 OTHER SPECIFIED POSTPROCEDURAL STATES 07/05/2019 KAYCEE HASSAN VOLLEYBALL PLAYER Ot C18.9 MALIGNANT NEOPLASM OF COLON, UNSPECIFIED 07/05/2019 HASSANKAYCEE Marinelli VOLLEYBALL PLAYER Ot C78.00 SECONDARY MALIGNANT NEOPLASM OF UNSPECIF 07/05/2019 KAYCEE HASSAN VOLLEYBALL PLAYER Ot C79.89 SECONDARY MALIGNANT NEOPLASM OF OTHER SP 07/05/2019 SONYA KAYCEE Marinelli VOLLEYBALL PLAYER Ot Z90.2 ACQUIRED ABSENCE OF LUNG [PART OF] 07/05/2019 HASSANKAYCEE Marinelli VOLLEYBALL PLAYER Ot Z90.49 ACQUIRED ABSENCE OF OTHER SPECIFIED PART 07/05/2019 HASSAN KAYCEE Marinelli VOLLEYBALL PLAYER Ot Z95.1 PRESENCE OF AORTOCORONARY BYPASS GRAFT 07/05/2019 SONYA KAYCEE Marinelli VOLLEYBALL PLAYER Ot Z95.828 PRESENCE OF OTHER VASCULAR IMPLANTS AND 07/05/2019 HASSAN KAYCEE S VOLLEYBALL PLAYER Ot M47.812 SPONDYLOSIS W/O MYELOPATHY OR RADICULOPA 07/05/2019 SONYA KAYCEE S VOLLEYBALL PLAYER Ot M48.02 SPINAL STENOSIS, CERVICAL REGION 07/05/2019 SONYA KAYCEE Marinelli VOLLEYBALL PLAYER Ot M50.30 OTHER CERVICAL DISC DEGENERATION, UNSP C 07/05/2019 SONYA KAYCEE Marinelli VOLLEYBALL PLAYER Ot Z85.118 PERSONAL HISTORY OF MALIGNANT NEOPLASM O 07/05/2019 HASSANKAYCEE Marinelli VOLLEYBALL PLAYER Ot Z85.89 PERSONAL HISTORY OF MALIGNANT NEOPLASM O 07/05/2019 SALOME STEVE Ot 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 APPENDIX 07/05/2019 SALOME STEVE Ot Z45.2 ENCOUNTER FOR ADJUSTMENT AND MANAGEMENT 07/05/2019 CODEY LOZANO MD Ot Z12.31 ENCNTR SCREEN MAMMOGRAM FOR MALIGNANT NE 07/12/2019 CODEY LOZANO MD Ot Z12.31 ENCNTR SCREEN MAMMOGRAM FOR MALIGNANT NE 07/27/2019 MAIK AMAYA DO Ot E03.9 HYPOTHYROIDISM, UNSPECIFIED 07/27/2019 MAIK AMAYA DO Ot E11.51 TYPE 2 DIABETES W DIABETIC PERIPHERAL AN 07/27/2019 MAIK AMAYA DO Ot E78.00 PURE HYPERCHOLESTEROLEMIA, UNSPECIFIED 07/27/2019 MAIK AMAYA DO Ot F17.21 0 NICOTINE DEPENDENCE, CIGARETTES, UNCOMPL 07/27/2019 AMAYA DO, MAIK Ot F41.9 ANXIETY DISORDER, UNSPECIFIED 07/27/2019 JOSE LUIS BIRD, MAIK Ot I13.0 HYP HRT CHR KDNY DIS W HRT FAIL AND ST 07/27/2019 JOSE LUIS BIRD MAIK Ot I25.10 ATHSCL HEART DISEASE OF [place] CORONARY 07/27/2019 JOSE LUIS BIRD, MAIK Ot I25.2 OLD MYOCARDIAL INFARCTION 07/27/2019 JOSE LUIS BIRD MAIK Ot I25.5 ISCHEMIC CARDIOMYOPATHY 07/27/2019 AMAYA DO, MAIK Ot I48.0 PAROXYSMAL ATRIAL FIBRILLATION 07/27/2019 AMAYA DO, MAIK Ot I48.92 UNSPECIFIED ATRIAL FLUTTER 07/27/2019 AMAYA DO, MAIK Ot I50.22 CHRONIC SYSTOLIC (CONGESTIVE) HEART FAIL 07/27/2019 JOSE LUIS BIRD MAIK Ot I65.29 OCCLUSION AND STENOSIS OF UNSPECIFIED CA 07/27/2019 JOSE LUIS BIRD MAIK Ot J30.2 OTHER SEASONAL ALLERGIC RHINITIS 07/27/2019 JOSE LUIS BIRD MAIK Ot J43.9 EMPHYSEMA, UNSPECIFIED 07/27/2019 JOSE LUIS BIRD MAIK Ot K04.7 PERIAPICAL ABSCESS WITHOUT SINUS 07/27/2019 JOSE LUIS BIRD, MAIK Ot K12.2 CELLULITIS AND ABSCESS OF MOUTH 07/27/2019 JOSE LUIS BIRD, MAIK Ot K21.9 GASTRO-ESOPHAGEAL REFLUX DISEASE WITHOUT 07/27/2019 JOSE LUIS BIRD, MAIK Ot M19.91 PRIMARY OSTEOARTHRITIS, UNSPECIFIED SITE 07/27/2019 JOSE LUIS BIRD MAIK Ot M54.9 DORSALGIA, UNSPECIFIED 07/27/2019 JOSE LUIS BIRD, MAIK Ot N18.3 CHRONIC KIDNEY DISEASE, STAGE 3 (MODERAT 07/27/2019 JOSE LUIS BIRD MAIK Ot Z79.01 RETIREMENT (CURRENT) USE OF ANTICOAGULANT 07/27/2019 JOSE LUIS BIRD MAIK Ot Z79.4 EXPEDITER CLERK (CURRENT) USE OF INSULIN 07/27/2019 JOSE LUIS BIRD MAIK Ot Z85.03 8 PERSONAL HISTORY OF MALIGNANT NEOPLASM O 07/27/2019 JOSE LUIS BIRD MAIK Ot Z85.11 8 PERSONAL HISTORY OF MALIGNANT NEOPLASM O 07/27/2019 JOSE LUIS BIRD MAIK Ot Z85.21 PERSONAL HISTORY OF MALIGNANT NEOPLASM O 07/27/2019 JOSE LUIS BIRD MAIK Ot Z90.2 ACQUIRED ABSENCE OF LUNG [PART OF] 07/27/2019 AMAYACHERY BIRD MAIK Ot Z92.21 PERSONAL HISTORY OF ANTINEOPLASTIC CHEMO 07/27/2019 JOSE LUIS BIRD MAIK Ot Z92.3 PERSONAL HISTORY OF IRRADIATION 07/27/2019 JOSE LUIS BIRD MAIK Ot Z95.1 PRESENCE OF AORTOCORONARY BYPASS GRAFT 07/28/2019 JOSE LUIS BIRD MAIK Ot E03.9 HYPOTHYROIDISM, UNSPECIFIED 07/28/2019 AMAYA DO, MAIK Ot E11.51 TYPE 2 DIABETES W DIABETIC PERIPHERAL AN 07/28/2019 AMAYA DO, MAIK Ot E78.00 PURE HYPERCHOLESTEROLEMIA, UNSPECIFIED 07/28/2019 AMAYA DO, MAIK Ot F17.21 0 NICOTINE DEPENDENCE, CIGARETTES, UNCOMPL 07/28/2019 AMAYA DO, MAIK Ot F41.9 ANXIETY DISORDER, UNSPECIFIED 07/28/2019 AMAYA DO, MAIK Ot I13.0 HYP HRT CHR [place] DIS W HRT FAIL AND ST 07/28/2019 JOSE LUIS BIRD, MAIK Ot I25.10 ATHSCL HEART DISEASE OF [place] CORONARY 07/28/2019 JOSE LUIS BIRD, MAIK Ot I25.2 OLD MYOCARDIAL INFARCTION 07/28/2019 AMAYA DO, MAIK Ot I25.5 ISCHEMIC CARDIOMYOPATHY 07/28/2019 AMAYA DO, MAIK Ot I48.0 PAROXYSMAL ATRIAL FIBRILLATION 07/28/2019 AMAYA DO, MAIK Ot I48.92 UNSPECIFIED ATRIAL FLUTTER 07/28/2019 AMAYA DO, MAIK Ot I50.22 CHRONIC SYSTOLIC (CONGESTIVE) HEART FAIL 07/28/2019 AMAYA DO, MAIK Ot I65.29 OCCLUSION AND STENOSIS OF UNSPECIFIED CA 07/28/2019 AMAYA DO, MAIK Ot J30.2 OTHER SEASONAL ALLERGIC RHINITIS 07/28/2019 AMAYA DO, MAIK Ot J43.9 EMPHYSEMA, UNSPECIFIED 07/28/2019 AMAYA DO, MAIK Ot K04.7 PERIAPICAL ABSCESS WITHOUT SINUS 07/28/2019 AMAYA DO, MAIK Ot K12.2 CELLULITIS AND ABSCESS OF MOUTH 07/28/2019 AMAYA DO, MAIK Ot K21.9 GASTRO-ESOPHAGEAL REFLUX DISEASE WITHOUT 07/28/2019 AMAYA DO, MAIK Ot M19.91 PRIMARY OSTEOARTHRITIS, UNSPECIFIED SITE 07/28/2019 AMAYA DO MAIK Ot M54.9 DORSALGIA, UNSPECIFIED 07/28/2019 JOSE LUIS BIRD MAIK Ot N18.3 CHRONIC KIDNEY DISEASE, STAGE 3 (MODERAT 07/28/2019 JOSE LUIS BIRD MAIK Ot Z79.01 RETIREMENT (CURRENT) USE OF ANTICOAGULANT 07/28/2019 JOSE LUIS BIRD MAIK Ot Z79.4 EXPEDITER CLERK (CURRENT) USE OF INSULIN 07/28/2019 JOSE LUIS BIRD MAIK Ot Z85.03 8 PERSONAL HISTORY OF MALIGNANT NEOPLASM O 07/28/2019 JOSE LUIS BIRD MAIK Ot Z85.11 8 PERSONAL HISTORY OF MALIGNANT NEOPLASM O 07/28/2019 JOSE LUIS BIRD MAIK Ot Z85.21 PERSONAL HISTORY OF MALIGNANT NEOPLASM O 07/28/2019 JOSE LUIS BIRD MAIK Ot Z90.2 ACQUIRED ABSENCE OF LUNG [PART OF] 07/28/2019 JOSE LUIS BIRD MAIK Ot Z92.21 PERSONAL HISTORY OF ANTINEOPLASTIC CHEMO 07/28/2019 JOSE LUIS BIRD MAIK Ot Z92.3 PERSONAL HISTORY OF IRRADIATION 07/28/2019 JOSE LUIS BIRD MAIK Ot Z95.1 PRESENCE OF AORTOCORONARY BYPASS GRAFT 07/29/2019 JOSE LUIS BIRD MAIK Ot E03.9 HYPOTHYROIDISM, UNSPECIFIED 07/29/2019 JOSE LUIS BIRD MAIK Ot E11.51 TYPE 2 DIABETES W DIABETIC PERIPHERAL AN 07/29/2019 JOSE LUIS BIRD MAIK Ot E78.00 PURE HYPERCHOLESTEROLEMIA, UNSPECIFIED 07/29/2019 JOSE LUIS BIRD MAIK Ot F17.21 0 NICOTINE DEPENDENCE, CIGARETTES, UNCOMPL 07/29/2019 JOSE LUIS BIRD MAIK Ot F41.9 ANXIETY DISORDER, UNSPECIFIED 07/29/2019 JOSE LUIS BIRD MAIK Ot I13.0 HYP HRT CHR [place] DIS W HRT FAIL AND ST 07/29/2019 JOSE LUIS BIRD MAIK Ot I25.10 ATHSCL HEART DISEASE OF [place] CORONARY 07/29/2019 JOSE LUIS BIRD MAIK Ot I25.2 OLD MYOCARDIAL INFARCTION 07/29/2019 JOSE LUIS BIRD MAIK Ot I25.5 ISCHEMIC CARDIOMYOPATHY 07/29/2019 JOSE LUIS BIRD MAIK Ot I48.0 PAROXYSMAL ATRIAL FIBRILLATION 07/29/2019 JOSE LUIS BIRD MAIK Ot I48.92 UNSPECIFIED ATRIAL FLUTTER 07/29/2019 JOSE LUIS BIRD MAIK Ot I50.22 CHRONIC SYSTOLIC (CONGESTIVE) HEART FAIL 07/29/2019 JOSE LUIS BIRD MAIK Ot I65.29 OCCLUSION AND STENOSIS OF UNSPECIFIED CA 07/29/2019 JOSE LUIS BIRD MAIK Ot J30.2 OTHER SEASONAL ALLERGIC RHINITIS 07/29/2019 JOSE LUIS BIRD MAIK Ot J43.9 EMPHYSEMA, UNSPECIFIED 07/29/2019 JOSE LUIS BIRD MAIK Ot K04.7 PERIAPICAL ABSCESS WITHOUT SINUS 07/29/2019 JOSE LUIS BIRD MAIK Ot K12.2 CELLULITIS AND ABSCESS OF MOUTH 07/29/2019 JOSE LUIS BIRD MAIK Ot K21.9 GASTRO-ESOPHAGEAL REFLUX DISEASE WITHOUT 07/29/2019 JOSE LUIS BIRD MAIK Ot M19.91 PRIMARY OSTEOARTHRITIS, UNSPECIFIED SITE 07/29/2019 JOSE LUIS BIRD MAIK Ot M54.9 DORSALGIA, UNSPECIFIED 07/29/2019 JOSE LUIS BIRD MAIK Ot N18.3 CHRONIC KIDNEY DISEASE, STAGE 3 (MODERAT 07/29/2019 JOSE LUIS BIRD MAIK Ot Z79.01 RETIREMENT (CURRENT) USE OF ANTICOAGULANT 07/29/2019 JOSE LUIS BIRD MAIK Ot Z79.4 EXPEDITER CLERK (CURRENT) USE OF INSULIN 07/29/2019 JOSE LUIS BIRD MAIK Ot Z85.03 8 PERSONAL HISTORY OF MALIGNANT NEOPLASM O 07/29/2019 JOSE LUIS BIRD MAIK Ot Z85.11 8 PERSONAL HISTORY OF MALIGNANT NEOPLASM O 07/29/2019 JOSE LUIS BIRD MAIK Ot Z85.21 PERSONAL HISTORY OF MALIGNANT NEOPLASM O 07/29/2019 JOSE LUIS BIRD MAIK Ot Z90.2 ACQUIRED ABSENCE OF LUNG [PART OF] 07/29/2019 JOSE LUIS BIRD MAIK Ot Z92.21 PERSONAL HISTORY OF ANTINEOPLASTIC CHEMO 07/29/2019 JOSE LUIS BIRD MAIK Ot Z92.3 PERSONAL HISTORY OF IRRADIATION 07/29/2019 JOSE LUIS BIRD MAIK Ot Z95.1 PRESENCE OF AORTOCORONARY BYPASS GRAFT 07/29/2019 JOSE LUIS BIRD MAIK Ot E03.9 HYPOTHYROIDISM, UNSPECIFIED 07/29/2019 JOSE LUIS BIRD MAIK Ot E11.51 TYPE 2 DIABETES W DIABETIC PERIPHERAL AN 07/29/2019 JOSE LUIS BIRD MAIK Ot E78.00 PURE HYPERCHOLESTEROLEMIA, UNSPECIFIED 07/29/2019 JOSE LUIS BIRD MAIK Ot F17.21 0 NICOTINE DEPENDENCE, CIGARETTES, UNCOMPL 07/29/2019 JOSE LUIS BIRD MAIK Ot F41.9 ANXIETY DISORDER, UNSPECIFIED 07/29/2019 AMAYA DO, MAIK Ot I13.0 HYP HRT CHR [place] DIS W HRT FAIL AND ST 07/29/2019 AMAYA DO, MAIK Ot I25.10 ATHSCL HEART DISEASE OF [place] CORONARY 07/29/2019 AMAYA DO, MAIK Ot I25.2 OLD MYOCARDIAL INFARCTION 07/29/2019 AMAYA DO, MAIK Ot I25.5 ISCHEMIC CARDIOMYOPATHY 07/29/2019 AMAYA DO, MAIK Ot I48.0 PAROXYSMAL ATRIAL FIBRILLATION 07/29/2019 AMAYA DO, MAIK Ot I50.22 CHRONIC SYSTOLIC (CONGESTIVE) HEART FAIL 07/29/2019 AMAYA DO, MAIK Ot I65.29 OCCLUSION AND STENOSIS OF UNSPECIFIED CA 07/29/2019 AMAYA DO, MAIK Ot J30.2 OTHER SEASONAL ALLERGIC RHINITIS 07/29/2019 JOSE LUIS DO MAIK Ot J43.9 EMPHYSEMA, UNSPECIFIED 07/29/2019 AMAYA DO, MAIK Ot J96.20 ACUTE AND CHR RESP FAILURE, UNSP W HYPOX 07/29/2019 JOSE LUIS DO MAIK Ot K04.7 PERIAPICAL ABSCESS WITHOUT SINUS 07/29/2019 JOSE LUIS DO, MAIK Ot K12.2 CELLULITIS AND ABSCESS OF MOUTH 07/29/2019 JOSE LUIS DO, MAIK Ot K21.9 GASTRO-ESOPHAGEAL REFLUX DISEASE WITHOUT 07/29/2019 JOSE LUIS DO, MAIK Ot M19.91 PRIMARY OSTEOARTHRITIS, UNSPECIFIED SITE 07/29/2019 JOSE LUIS DO MAIK Ot M54.9 DORSALGIA, UNSPECIFIED 07/29/2019 JOSE LUIS BIRD, MAIK Ot N18.3 CHRONIC KIDNEY DISEASE, STAGE 3 (MODERAT 07/29/2019 JOSE LUIS BIRD MAIK Ot Z79.01 EXPEDITER CLERK (CURRENT) USE OF ANTICOAGULANT 07/29/2019 JOSE LUIS BIRD, MAIK Ot Z79.4 RETIREMENT (CURRENT) USE OF INSULIN 07/29/2019 JOSE LUIS BIRD, MAIK Ot Z85.03 8 PERSONAL HISTORY OF MALIGNANT NEOPLASM O 07/29/2019 JOSE LUIS BIRD MAIK Ot Z85.11 8 PERSONAL HISTORY OF MALIGNANT NEOPLASM O 07/29/2019 JOSE LUIS BIRD MAIK Ot Z85.21 PERSONAL HISTORY OF MALIGNANT NEOPLASM O 07/29/2019 JOSE LUIS BIRD MAIK Ot Z90.2 ACQUIRED ABSENCE OF LUNG [PART OF] 07/29/2019 JOSE LUIS BIRD MAIK Ot Z92.21 PERSONAL HISTORY OF ANTINEOPLASTIC CHEMO 07/29/2019 MAIK AMAYA DO Ot Z92.3 PERSONAL HISTORY OF IRRADIATION 07/29/2019 MAIK AMAYA DO Ot Z95.1 PRESENCE OF AORTOCORONARY BYPASS GRAFT 08/06/2019 KRISTI MARI MD, Ot E11.638 TYPE 2 DIABETES MELLITUS WITH OTHER ORAL 08/06/2019 KRISTI MARI MD, Ot J44.9 CHRONIC OBSTRUCTIVE PULMONARY DISEASE, U 08/06/2019 KRISTI MARI MD, Ot K12.2 CELLULITIS AND ABSCESS OF MOUTH 08/06/2019 KRISTI MARI MD Ot L03.211 CELLULITIS OF FACE 08/06/2019 KRISTI MARI MD, Ot W88.8XXS EXPOSURE TO OTHER IONIZING RADIATION, SE 08/06/2019 KRISTI MARI MD, Ot Z99.81 DEPENDENCE ON SUPPLEMENTAL OXYGEN 08/06/2019 KRISTI MARI MD, Ot E11.638 TYPE 2 DIABETES MELLITUS WITH OTHER ORAL 08/06/2019 KRISTI MARI MD, Ot J44.9 CHRONIC OBSTRUCTIVE PULMONARY DISEASE, U 08/06/2019 KRISTI MARI MD, Ot K12.2 CELLULITIS AND ABSCESS OF MOUTH 08/06/2019 KRISTI MARI MD Ot L03.211 CELLULITIS OF FACE 08/06/2019 KRISTI MARI MD, Ot W88.8XXS EXPOSURE TO OTHER IONIZING RADIATION, SE 08/06/2019 KRISTI MARI MD, Ot Z99.81 DEPENDENCE ON SUPPLEMENTAL OXYGEN 09/08/2019 SALOME STEVE Ot 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 APPENDIX 09/08/2019 SALOME STEVE Ot Z45.2 ENCOUNTER FOR ADJUSTMENT AND MANAGEMENT 09/22/2019 SALOME STEVE Ot 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 APPENDIX 09/22/2019 SALOME STEVE Ot Z45.2 ENCOUNTER FOR ADJUSTMENT AND MANAGEMENT 10/08/2019 SALOME STEVE Ot 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 APPENDIX 10/08/2019 SALOME STEVE Ot Z45.2 ENCOUNTER FOR ADJUSTMENT AND MANAGEMENT 11/02/2019 STEF REDDING MD, Ot D64 .9 ANEMIA, UNSPECIFIED 11/02/2019 STEF REDDING MD, Ot E11.42 TYPE 2 DIABETES MELLITUS WITH DIABETIC P 11/02/2019 STEF REDDING MD, Ot E11.622 TYPE 2 DIABETES MELLITUS WITH OTHER SKIN 11/02/2019 STEF REDDING MD, Ot G47.30 SLEEP APNEA, UNSPECIFIED 11/02/2019 STEF REDDING MD, Ot I12 .0 HYP CHR KIDNEY DISEASE W STAGE 5 CHR KID 11/02/2019 STEF REDDING MD, Ot I25.10 ATHSCL HEART DISEASE OF [place] CORONARY 11/02/2019 STEF REDDING MD, Ot I25 .2 OLD MYOCARDIAL INFARCTION 11/02/2019 STEF REDDING MD Ot I70.232 ATHSCL [place] ARTERIES OF RIGHT LEG W UL 11/02/2019 STEF REDDING MD, Ot I87.331 CHRONIC VENOUS HTN W ULCER AND INFLAMMAT 11/02/2019 STEF REDDING MD, Ot J44 .9 CHRONIC OBSTRUCTIVE PULMONARY DISEASE, U 11/02/2019 STEF REDDING MD, Ot L97.212 NON-PRESSURE CHRONIC ULCER OF RIGHT CALF 11/02/2019 STEF REDDING MD, Ot N18 .6 END STAGE RENAL DISEASE 11/02/2019 STEF REDDING MD, Ot Z92.21 PERSONAL HISTORY OF ANTINEOPLASTIC CHEMO 11/02/2019 STEF REDDING MD, Ot Z92 .3 PERSONAL HISTORY OF IRRADIATION 11/02/2019 STEF REDDING MD, Ot D64 .9 ANEMIA, UNSPECIFIED 11/02/2019 STEF REDDING MD Ot E11.42 TYPE 2 DIABETES MELLITUS WITH DIABETIC P 11/02/2019 STEF REDDING MD, Ot E11.622 TYPE 2 DIABETES MELLITUS WITH OTHER SKIN 11/02/2019 STEF REDDING MD, Ot G47.30 SLEEP APNEA, UNSPECIFIED 11/02/2019 STEF REDDING MD Ot I12 .0 HYP CHR KIDNEY DISEASE W STAGE 5 CHR KID 11/02/2019 STEF REDDING MD, Ot I25.10 ATHSCL HEART DISEASE OF [place] CORONARY 11/02/2019 STEF REDDING MD, Ot I25 .2 OLD MYOCARDIAL INFARCTION 11/02/2019 STEF REDDING MD, Ot I70.232 ATHSCL [place] ARTERIES OF RIGHT LEG W UL 11/02/2019 STEF REDDING MD, Ot I87.331 CHRONIC VENOUS HTN W ULCER AND INFLAMMAT 11/02/2019 STEF REDDING MD, Ot J44 .9 CHRONIC OBSTRUCTIVE PULMONARY DISEASE, U 11/02/2019 STEF REDDING MD, Ot L97.212 NON-PRESSURE CHRONIC ULCER OF RIGHT CALF 11/02/2019 MILADIS MD, STEF G Ot N18 .6 END STAGE RENAL DISEASE 11/02/2019 STEF REDDING MD, Ot Z92.21 PERSONAL HISTORY OF ANTINEOPLASTIC CHEMO 11/02/2019 STEF REDDING MD, Ot Z92 .3 PERSONAL HISTORY OF IRRADIATION 11/04/2019 KYLIE TAYLOR MD Ot E10. 9 TYPE 1 DIABETES MELLITUS WITHOUT COMPLIC 11/04/2019 KYLIE TAYLOR MD Ot I10 ESSENTIAL (PRIMARY) HYPERTENSION 11/04/2019 KYLIE TAYLOR MD Ot I73. 9 PERIPHERAL VASCULAR DISEASE, UNSPECIFIED 11/04/2019 KYLIE TAYLOR MD Ot R06. 02 SHORTNESS OF BREATH 11/07/2019 STEF REDDING MD, Ot D64 .9 ANEMIA, UNSPECIFIED 11/07/2019 STEF REDDING MD, Ot E11.42 TYPE 2 DIABETES MELLITUS WITH DIABETIC P 11/07/2019 STEF REDDING MD, Ot E11.622 TYPE 2 DIABETES MELLITUS WITH OTHER SKIN 11/07/2019 STEF REDDING MD, Ot G47.30 SLEEP APNEA, UNSPECIFIED 11/07/2019 STEF REDDING MD, Ot I12 .0 HYP CHR KIDNEY DISEASE W STAGE 5 CHR KID 11/07/2019 STEF REDDING MD, Ot I25.10 ATHSCL HEART DISEASE OF [place] CORONARY 11/07/2019 STEF REDDING MD, Ot I25 .2 OLD MYOCARDIAL INFARCTION 11/07/2019 STEF REDDING MD, Ot I70.232 ATHSCL [place] ARTERIES OF RIGHT LEG W UL 11/07/2019 STEF REDDING MD, Ot I87.331 CHRONIC VENOUS HTN W ULCER AND INFLAMMAT 11/07/2019 STEF REDDING MD, Ot J44 .9 CHRONIC OBSTRUCTIVE PULMONARY DISEASE, U 11/07/2019 STEF REDDING MD, Ot L97.212 NON-PRESSURE CHRONIC ULCER OF RIGHT CALF 11/07/2019 STEF REDDING MD, Ot N18 .6 END STAGE RENAL DISEASE 11/07/2019 STEF REDDING MD, Ot Z92.21 PERSONAL HISTORY OF ANTINEOPLASTIC CHEMO 11/07/2019 STEF REDDING MD, Ot Z92 .3 PERSONAL HISTORY OF IRRADIATION Procedures Code Description Performed By Per formed On [id number] RE STORATION OF CARDIAC RHYTHM, SINGLE 07/23/2017 [id number] EX CISION OF ILEUM, OPEN APPROACH 08/06/2018 [id number] EX CISION OF ASCENDING COLON, OPEN APPROA 08/06/2018 [id number] RE SECTION OF CECUM, OPEN APPROACH 08/06/2018 [id number] RE SECTION OF APPENDIX, OPEN APPROACH 08/06/2018 Results Test Result Range Complete blood count (CBC) with automate d white blood cell (WBC) differential - 03/15/16 15:58 Blood leukocytes automated count (number/volume) 14.1 10*3/uL 4.3-11.0 Blood erythrocytes automated count (number/volume) 4.76 10*6/uL 4.35-5.85 Venous blood hemoglobin measurement (mass/volume) 13.2 g/dL 11.5-16.0 Blood hematocrit (volume fraction) 40 % 35-52 Automated erythrocyte mean corpuscular volume 85 [ foz_us] 80-99 Automated erythrocyte mean corpuscular h emoglobin (mass per erythrocyte) 28 pg 25-34 Automated erythrocyte mean corpuscular h emoglobin concentration measurement (mass/volume) 33 g/dL 32-36 Automated erythrocyte distribution width ratio 15. 5 % 10.0- 14.5 Automated blood platelet count (count/volume) 194 10*3/uL [...] 10*3 1.0-4.0 Blood monocytes automated count (number/volume) 1. 0 10*3 0.0-1.0 Automated eosinophil count 0.1 10*3/uL 0 .0-0.3 Automated blood basophil count (count/volume) 0.0 10*3/uL 0.0-0.1 Comprehensive metabolic panel - 03/15/16 15:58 Serum or plasma sodium measurement (moles/volume) 139 mmol/L 135-145 Serum or plasma potassium measurement (moles/volume) 4.2 mmol/L 3.6-5.0 Serum or plasma chloride measurement (moles/volume) 105 mmol/L 98-107 Carbon dioxide 24 mmol/L 21-32 Serum or plasma anion gap determination (moles/volume) 10 mmol/L 5-14 Serum or plasma urea nitrogen measurement (mass/volume ) 16 mg/dL 7-18 Serum or plasma creatinine measurement (mass/volume) 1.13 mg/dL 0.60-1.30 Serum or plasma urea nitrogen/creatinine mass ratio 14 NRG Serum or plasma creatinine measurement w ith calculation of estimated glomerular filtration rate 50 NRG Serum or plasma glucose measurement (mass/volume) 296 mg/dL 70-105 Serum or plasma calcium measurement (mass/volume) 9.9 mg/dL 8.5-10.1 Serum or plasma total bilirubin measurement (mass/volu me) 0.4 mg/dL 0.1-1.0 Serum or plasma alkaline phosphatase doug surement (enzymatic activity/volume) 61 U/L 40-136 Serum or plasma aspartate aminotransfera se measurement (enzymatic activity/volume) 53 U/L 5-34 Serum or plasma alanine aminotransferase measurement (enzymatic activity/volume) 59 U/L 0-55 Serum or plasma protein measurement (mass/volume) 7.1 g/dL 6.4-8.2 Serum or plasma albumin measurement (mass/volume) 4.4 g/dL 3.2-4.5 Lipase - 03/15/16 15:58 Lipase 570 U/L 8-78 Blood manual differential performed dete ction - 03/15/16 15:58 Blood monocytes/100 leukocytes 6 % NRG Manual blood segmented neutrophils/100 leukocytes 83 % NRG Manual blood lymphocytes/100 leukocytes 10 % NRG Manual eosinophils/100 leukocytes in nose 1 % NRG Blood erythrocyte morphology finding identification NORMAL NRG Complete urinalysis with reflex to cultu re - 03/15/16 16:15 Urine color determination YELLOW NRG Urine clarity determination CLEAR NR G Urine pH measurement by test strip 7 5-9 Specific gravity of urine by test strip 1.005 1.016-1.022 Urine protein assay by test strip, semi-quantitative NEGATIVE NEGATIVE Urine glucose detection by automated test strip 3+ NEGATIVE Erythrocytes detection in urine sediment by light micr oscopy NEGATIVE NEGATIVE Urine ketones detection by automated test strip NE GATIVE NEGATIVE Urine nitrite detection by test strip NEGATIVE NEGATIVE Urine total bilirubin detection by test strip NEGA TIVE NEGATIVE Urine urobilinogen measurement by automated test strip (mass/volume) NORMAL NORMAL Urine leukocyte esterase detection by dipstick NEG ATIVE NEGATIVE Automated urine sediment erythrocyte cou nt by microscopy (number/high power field) NONE NRG Automated urine sediment leukocyte count by microscopy (number/high power field) NONE NRG Bacteria detection in urine sediment by light microsco py NEGATIVE NRG Squamous epithelial cells detection in u rine sediment by light microscopy RARE NRG Crystals detection in urine sediment by light microsco py NONE NRG Casts detection in urine sediment by light microscopy NONE NRG Mucus detection in urine sediment by light microscopy NEGATIVE NRG Complete urinalysis with reflex to culture NO NRG Capillary blood glucose measurement by g lucometer (mass/volume) - 07/04/16 10:38 Capillary blood glucose measurement by glucometer (mas s/volume) 202 mg/dL 70-110 Bacterial blood culture - 07/14/17 13:55 Bacterial blood culture NG NRG Complete blood count (CBC) with automate d white blood cell (WBC) differential - 07/14/17 13:57 Blood leukocytes automated count (number/volume) 11.0 10*3/uL 4.3-11.0 Blood erythrocytes automated count (number/volume) 4.24 10*6/uL 4.35-5.85 Venous blood hemoglobin measurement (mass/volume) 12.8 g/dL 11.5-16.0 Blood hematocrit (volume fraction) 38 % 35-52 Automated erythrocyte mean corpuscular volume 88 [ foz_us] 80-99 Automated erythrocyte mean corpuscular h emoglobin (mass per erythrocyte) 30 pg 25-34 Automated erythrocyte mean corpuscular h emoglobin concentration measurement (mass/volume) 34 g/dL 32-36 Automated erythrocyte distribution width ratio 14. 9 % 10.0- 14.5 Automated blood platelet count (count/volume) 119 10*3/uL 130-400 Automated blood platelet mean volume measurement 10.6 [foz_us] 7.4-10.4 Automated blood neutrophils/100 leukocytes 86 % 42-75 Automated blood lymphocytes/100 leukocytes 5 % 12-44 Blood monocytes/100 leukocytes 9 % 0-12 Automated blood eosinophils/100 leukocytes 0 % 0-10 Automated blood basophils/100 leukocytes 0 % 0-10 Blood neutrophils automated count (number/volume) 9.4 10*3 1.8-7.8 Blood lymphocytes automated count (number/volume) 0.6 10*3 1.0-4.0 Blood monocytes automated count (number/volume) 0. 9 10*3 0.0-1.0 Automated eosinophil count 0.0 10*3/uL 0 .0-0.3 Automated blood basophil count (count/volume) 0.0 10*3/uL 0.0-0.1 Blood manual differential performed dete ction - 07/14/17 13:57 Blood monocytes/100 leukocytes 6 % NRG Manual blood segmented neutrophils/100 leukocytes 58 % NRG Blood band neutrophils/100 leukocytes 30 % NRG Manual blood lymphocytes/100 leukocytes 5 % NRG Manual eosinophils/100 leukocytes in nose 1 % NRG Manual blood basophils/100 leukocytes 0 % NRG Blood anisocytosis detection by light microscopy S LIGHT NRG Blood lactic acid measurement (moles/vol ume) - 07/14/17 13:57 Blood lactic acid measurement (moles/volume) 2.77 mmol/L 0.50-2.00 Comprehensive metabolic panel - 07/14/17 13:57 Serum or plasma sodium measurement (moles/volume) 136 mmol/L 135-145 Serum or plasma potassium measurement (moles/volume) 4.3 mmol/L 3.6-5.0 Serum or plasma chloride measurement (moles/volume) 102 mmol/L 98-107 Carbon dioxide 19 mmol/L 21-32 Serum or plasma anion gap determination (moles/volume) 15 mmol/L 5-14 Serum or plasma urea nitrogen measurement (mass/volume ) 19 mg/dL 7-18 Serum or plasma creatinine measurement (mass/volume) 1.60 mg/dL 0.60-1.30 Serum or plasma urea nitrogen/creatinine mass ratio 12 NRG Serum or plasma creatinine measurement w ith calculation of estimated glomerular filtration rate 33 NRG Serum or plasma glucose measurement (mass/volume) 296 mg/dL 70-105 Serum or plasma calcium measurement (mass/volume) 8.8 mg/dL 8.5-10.1 Serum or plasma total bilirubin measurement (mass/volu me) 0.9 mg/dL 0.1-1.0 Serum or plasma alkaline phosphatase doug surement (enzymatic activity/volume) 49 U/L 40-136 Serum or plasma aspartate aminotransfera se measurement (enzymatic activity/volume) 132 U/L 5-34 Serum or plasma alanine aminotransferase measurement (enzymatic activity/volume) 142 U/L 0-55 Serum or plasma protein measurement (mass/volume) 6.3 g/dL 6.4-8.2 Serum or plasma albumin measurement (mass/volume) 3.7 g/dL 3.2-4.5 Serum or plasma troponin i.cardiac measu rement (mass/volume) - 07/14/17 13:57 Serum or plasma troponin i.cardiac measurement (mass/v olume) < ng/mL <0.30 Lipase - 07/14/17 13:57 Lipase 13 U/L 8-78 Bacterial blood culture - 07/14/17 13:57 Bacterial blood culture NG NRG Sputum Gram stain - 07/14/17 14:10 Sputum Gram stain pneumoniae NRG Bacterial sputum culture - 07/14/17 14:1 0 FREE TEXT EXTERNAL PLUS NORMAL FERNANDO NR G QUANTITY OF GROWTH . NRG Bacterial sputum culture SEE COMMEN NRG Serum or plasma lactate measurement (mol es/volume) - 07/14/17 16:15 Serum or plasma lactate measurement (moles/volume) 2.83 mmol/L 0.50-2.00 Capillary blood glucose measurement by g lucometer (mass/volume) - 07/14/17 16:55 Capillary blood glucose measurement by glucometer (mas s/volume) 423 mg/dL 70-110 Capillary blood glucose measurement by g lucometer (mass/volume) - 07/14/17 18:16 Capillary blood glucose measurement by glucometer (mas s/volume) 379 mg/dL 70-110 Blood lactic acid measurement (moles/vol ume) - 07/14/17 20:10 Blood lactic acid measurement (moles/volume) 3.77 mmol/L 0.50-2.00 Capillary blood glucose measurement by g lucometer (mass/volume) - 07/14/17 20:48 Capillary blood glucose measurement by glucometer (mas s/volume) 389 mg/dL 70-110 Blood lactic acid measurement (moles/vol ume) - 07/15/17 00:50 Blood lactic acid measurement (moles/volume) 2.89 mmol/L 0.50-2.00 Capillary blood glucose measurement by g lucometer (mass/volume) - 07/15/17 05:56 Capillary blood glucose measurement by glucometer (mas s/volume) 410 mg/dL 70-110 Complete blood count (CBC) with automate d white blood cell (WBC) differential - 07/15/17 06:10 Blood leukocytes automated count (number/volume) 16.8 10*3/uL 4.3-11.0 Blood erythrocytes automated count (number/volume) 3.93 10*6/uL 4.35-5.85 Venous blood hemoglobin measurement (mass/volume) 11.8 g/dL 11.5-16.0 Blood hematocrit (volume fraction) 35 % 35-52 Automated erythrocyte mean corpuscular volume 89 [ foz_us] 80-99 Automated erythrocyte mean corpuscular h emoglobin (mass per erythrocyte) 30 pg 25-34 Automated erythrocyte mean corpuscular h emoglobin concentration measurement (mass/volume) 34 g/dL 32-36 Automated erythrocyte distribution width ratio 14. 9 % 10.0- 14.5 Automated blood platelet count (count/volume) 125 10*3/uL 130-400 Automated blood platelet mean volume measurement 10.5 [foz_us] 7.4-10.4 Automated blood neutrophils/100 leukocytes 92 % 42-75 Automated blood lymphocytes/100 leukocytes 4 % 12-44 Blood monocytes/100 leukocytes 4 % 0-12 Automated blood eosinophils/100 leukocytes 0 % 0-10 Automated blood basophils/100 leukocytes 0 % 0-10 Blood neutrophils automated count (number/volume) 15.4 10*3 1.8-7.8 Blood lymphocytes automated count (number/volume) 0.7 10*3 1.0-4.0 Blood monocytes automated count (number/volume) 0. 7 10*3 0.0-1.0 Automated eosinophil count 0.0 10*3/uL 0 .0-0.3 Automated blood basophil count (count/volume) 0.0 10*3/uL 0.0-0.1 Comprehensive metabolic panel - 07/15/17 06:10 Serum or plasma sodium measurement (moles/volume) 139 mmol/L 135-145 Serum or plasma potassium measurement (moles/volume) 4.2 mmol/L 3.6-5.0 Serum or plasma chloride measurement (moles/volume) 108 mmol/L 98-107 Carbon dioxide 20 mmol/L 21-32 Serum or plasma anion gap determination (moles/volume) 11 mmol/L 5-14 Serum or plasma urea nitrogen measurement (mass/volume ) 19 mg/dL 7-18 Serum or plasma creatinine measurement (mass/volume) 1.35 mg/dL 0.60-1.30 Serum or plasma urea nitrogen/creatinine mass ratio 14 NRG Serum or plasma creatinine measurement w ith calculation of estimated glomerular filtration rate 40 NRG Serum or plasma glucose measurement (mass/volume) 447 mg/dL 70-105 Serum or plasma calcium measurement (mass/volume) 8.7 mg/dL 8.5-10.1 Serum or plasma total bilirubin measurement (mass/volu me) 0.4 mg/dL 0.1-1.0 Serum or plasma alkaline phosphatase doug surement (enzymatic activity/volume) 45 U/L 40-136 Serum or plasma aspartate aminotransfera se measurement (enzymatic activity/volume) 67 U/L 5-34 Serum or plasma alanine aminotransferase measurement (enzymatic activity/volume) 114 U/L 0-55 Serum or plasma protein measurement (mass/volume) 6.5 g/dL 6.4-8.2 Serum or plasma albumin measurement (mass/volume) 3.8 g/dL 3.2-4.5 Blood lactic acid measurement (moles/vol ume) - 07/15/17 06:10 Blood lactic acid measurement (moles/volume) 3.27 mmol/L 0.50-2.00 Capillary blood glucose measurement by g lucometer (mass/volume) - 07/15/17 11:21 Capillary blood glucose measurement by glucometer (mas s/volume) 399 mg/dL 70-110 Blood lactic acid measurement (moles/vol ume) - 07/15/17 13:40 Blood lactic acid measurement (moles/volume) 3.05 mmol/L 0.50-2.00 Capillary blood glucose measurement by g lucometer (mass/volume) - 07/15/17 16:08 Capillary blood glucose measurement by glucometer (mas s/volume) 476 mg/dL 70-110 Capillary blood glucose measurement by g lucometer (mass/volume) - 07/15/17 20:18 Capillary blood glucose measurement by glucometer (mas s/volume) 448 mg/dL 70-110 Capillary blood glucose measurement by g lucometer (mass/volume) - 07/15/17 22:36 Capillary blood glucose measurement by glucometer (mas s/volume) 449 mg/dL 70-110 Arterial blood gas measurement - 8 04:08 Blood pCO2 42 mm[Hg] 35-45 Blood pO2 53 mm[Hg] 79-93 Arterial blood bicarbonate measurement (moles/volume) 21 mmol/L 23-27 Arterial blood base excess by calculation -4.9 mmo l/L -2.5-2.5 Arterial blood oxygen saturation measurement 86 % 94-100 * Inhaled oxygen flow rate 100% NRG Arterial blood pH measurement with patient temperature correction 7.31 7.37-7.43 Arterial blood carbon dioxide, total measurement (mole s/volume) 21.9 mmol/L 21.0-31.0 Body site LEFT RADIAL NRG Assessment of wrist artery patency prior to arterial p uncture YES-POS NRG Setting of ventilation mode NO NR G Measurement of body temperature 96.9 NRG Complete blood count (CBC) with automate d white blood cell (WBC) differential - 07/16/17 04:30 Blood leukocytes automated count (number/volume) 22.8 10*3/uL 4.3-11.0 Blood erythrocytes automated count (number/volume) 4.65 10*6/uL 4.35-5.85 Venous blood hemoglobin measurement (mass/volume) 14.1 g/dL 11.5-16.0 Blood hematocrit (volume fraction) 41 % 35-52 Automated erythrocyte mean corpuscular volume 87 [ foz_us] 80-99 Automated erythrocyte mean corpuscular h emoglobin (mass per erythrocyte) 30 pg 25-34 Automated erythrocyte mean corpuscular h emoglobin concentration measurement (mass/volume) 35 g/dL 32-36 Automated erythrocyte distribution width ratio 15. 2 % 10.0- 14.5 Automated blood platelet count (count/volume) 150 10*3/uL 130-400 Automated blood platelet mean volume measurement 10.9 [foz_us] 7.4-10.4 Automated blood neutrophils/100 leukocytes 91 % 42-75 Automated blood lymphocytes/100 leukocytes 5 % 12-44 Blood monocytes/100 leukocytes 4 % 0-12 Automated blood eosinophils/100 leukocytes 0 % 0-10 Automated blood basophils/100 leukocytes 0 % 0-10 Blood neutrophils automated count (number/volume) 20.7 10*3 1.8-7.8 Blood lymphocytes automated count (number/volume) 1.1 10*3 1.0-4.0 Blood monocytes automated count (number/volume) 0. 9 10*3 0.0-1.0 Automated eosinophil count 0.0 10*3/uL 0 .0-0.3 Automated blood basophil count (count/volume) 0.0 10*3/uL 0.0-0.1 Serum or plasma troponin i.cardiac measu rement (mass/volume) - 07/16/17 04:30 Serum or plasma troponin i.cardiac measurement (mass/v olume) < ng/mL <0.30 Serum or plasma lithium measurement (mol es/volume) - 07/16/17 04:30 BNP level 674.5 pg/mL <100.0 Comprehensive metabolic panel - 07/16/17 04:30 Serum or plasma sodium measurement (moles/volume) 142 mmol/L 135-145 Serum or plasma potassium measurement (moles/volume) 4.3 mmol/L 3.6-5.0 Serum or plasma chloride measurement (moles/volume) 108 mmol/L 98-107 Carbon dioxide 18 mmol/L 21-32 Serum or plasma anion gap determination (moles/volume) 16 mmol/L 5-14 Serum or plasma urea nitrogen measurement (mass/volume ) 24 mg/dL 7-18 Serum or plasma creatinine measurement (mass/volume) 1.20 mg/dL 0.60-1.30 Serum or plasma urea nitrogen/creatinine mass ratio 20 NRG Serum or plasma creatinine measurement w ith calculation of estimated glomerular filtration rate 46 NRG Serum or plasma glucose measurement (mass/volume) 370 mg/dL 70-105 Serum or plasma calcium measurement (mass/volume) 9.1 mg/dL 8.5-10.1 Serum or plasma total bilirubin measurement (mass/volu me) 0.9 mg/dL 0.1-1.0 Serum or plasma alkaline phosphatase doug surement (enzymatic activity/volume) 77 U/L 40-136 Serum or plasma aspartate aminotransfera se measurement (enzymatic activity/volume) 188 U/L 5-34 Serum or plasma alanine aminotransferase measurement (enzymatic activity/volume) 211 U/L 0-55 Serum or plasma protein measurement (mass/volume) 8.0 g/dL 6.4-8.2 Serum or plasma albumin measurement (mass/volume) 4.1 g/dL 3.2-4.5 Serum or plasma phosphate measurement (m ass/volume) - 07/16/17 04:30 Serum or plasma phosphate measurement (mass/volume) 2.6 mg/dL 2.3-4.7 Magnesium - 07/16/17 04:30 Magnesium 1.6 mg/dL 1.8-2.4 Capillary blood glucose measurement by g lucometer (mass/volume) - 07/16/17 05:00 Capillary blood glucose measurement by glucometer (mas s/volume) 335 mg/dL 70-110 Capillary blood glucose measurement by g lucometer (mass/volume) - 07/16/17 07:50 Capillary blood glucose measurement by glucometer (mas s/volume) 333 mg/dL 70-110 Arterial blood gas measurement - 8 10:00 Blood pCO2 50 mm[Hg] 35-45 Blood pO2 66 mm[Hg] 79-93 Arterial blood bicarbonate measurement (moles/volume) 24 mmol/L 23-27 Arterial blood base excess by calculation -1.4 mmo l/L -2.5-2.5 Arterial blood oxygen saturation measurement 93 % 94-100 * Inhaled oxygen flow rate 40L VAPOTHERM 100% NRG Arterial blood pH measurement with patient temperature correction 7.30 7.37-7.43 Arterial blood carbon dioxide, total measurement (mole s/volume) 25.8 mmol/L 21.0-31.0 Body site RIGHT RADIAL NRG Assessment of wrist artery patency prior to arterial p uncture POSITIVE NRG Setting of ventilation mode NO NR G Measurement of body temperature 97.3 NRG Capillary blood glucose measurement by g lucometer (mass/volume) - 07/16/17 12:10 Capillary blood glucose measurement by glucometer (mas s/volume) 304 mg/dL 70-110 Arterial blood gas measurement - 8 12:25 Blood pCO2 42 mm[Hg] 35-45 Blood pO2 101 mm[Hg] 79-93 Arterial blood bicarbonate measurement (moles/volume) 24 mmol/L 23-27 Arterial blood base excess by calculation -0.5 mmo l/L -2.5-2.5 Arterial blood oxygen saturation measurement 99 % 94-100 * Inhaled oxygen flow rate 100% BIPAP N RG Arterial blood pH measurement with patient temperature correction 7.37 7.37-7.43 Arterial blood carbon dioxide, total measurement (mole s/volume) 25.6 mmol/L 21.0-31.0 Body site RIGHT RADIAL NRG Assessment of wrist artery patency prior to arterial p uncture POSITIVE NRG Setting of ventilation mode NO NR G Measurement of body temperature 96.4 NRG Arterial blood gas measurement - 8 15:15 Blood pCO2 46 mm[Hg] 35-45 Blood pO2 68 mm[Hg] 79-93 Arterial blood bicarbonate measurement (moles/volume) 25 mmol/L 23-27 Arterial blood base excess by calculation 0.4 mmol /L -2.5-2.5 Arterial blood oxygen saturation measurement 95 % 94-100 * Inhaled oxygen flow rate 60% BIPAP NR G Arterial blood pH measurement with patient temperature correction 7.36 7.37-7.43 Arterial blood carbon dioxide, total measurement (mole s/volume) 26.8 mmol/L 21.0-31.0 Body site RIGHT RADIAL NRG Assessment of wrist artery patency prior to arterial p uncture POSITIVE NRG Setting of ventilation mode NO NR G Measurement of body temperature 97.2 NRG Capillary blood glucose measurement by g lucometer (mass/volume) - 07/16/17 16:22 Capillary blood glucose measurement by glucometer (mas s/volume) 298 mg/dL 70-110 Capillary blood glucose measurement by g lucometer (mass/volume) - 07/16/17 20:01 Capillary blood glucose measurement by glucometer (mas s/volume) 330 mg/dL 70-110 Capillary blood glucose measurement by g lucometer (mass/volume) - 07/16/17 23:23 Capillary blood glucose measurement by glucometer (mas s/volume) 281 mg/dL 70-110 Arterial blood gas measurement - 8 04:54 Blood pCO2 39 mm[Hg] 35-45 Blood pO2 117 mm[Hg] 79-93 Arterial blood bicarbonate measurement (moles/volume) 27 mmol/L 23-27 Arterial blood base excess by calculation 2.4 mmol /L -2.5-2.5 Arterial blood oxygen saturation measurement 100 % 94-100 * Inhaled oxygen flow rate 40% FIO2 NRG Arterial blood pH measurement with patient temperature correction 7.44 7.37-7.43 Arterial blood carbon dioxide, total measurement (mole s/volume) 27.8 mmol/L 21.0-31.0 Body site L RAD NRG Assessment of wrist artery patency prior to arterial p uncture YES-POS NRG Setting of ventilation mode NO NR G Measurement of body temperature 96.4 NRG Complete blood count (CBC) with automate d white blood cell (WBC) differential - 07/17/17 05:35 Blood leukocytes automated count (number/volume) 14.0 10*3/uL 4.3-11.0 Blood erythrocytes automated count (number/volume) 3.95 10*6/uL 4.35-5.85 Venous blood hemoglobin measurement (mass/volume) 11.8 g/dL 11.5-16.0 Blood hematocrit (volume fraction) 35 % 35-52 Automated erythrocyte mean corpuscular volume 89 [ foz_us] 80-99 Automated erythrocyte mean corpuscular h emoglobin (mass per erythrocyte) 30 pg 25-34 Automated erythrocyte mean corpuscular h emoglobin concentration measurement (mass/volume) 34 g/dL 32-36 Automated erythrocyte distribution width ratio 15. 0 % 10.0- 14.5 Automated blood platelet count (count/volume) 142 10*3/uL 130-400 Automated blood platelet mean volume measurement 11.0 [foz_us] 7.4-10.4 Automated blood neutrophils/100 leukocytes 86 % 42-75 Automated blood lymphocytes/100 leukocytes 10 % 12-44 Blood monocytes/100 leukocytes 4 % 0-12 Automated blood eosinophils/100 leukocytes 0 % 0-10 Automated blood basophils/100 leukocytes 0 % 0-10 Blood neutrophils automated count (number/volume) 12.0 10*3 1.8-7.8 Blood lymphocytes automated count (number/volume) 1.4 10*3 1.0-4.0 Blood monocytes automated count (number/volume) 0. 6 10*3 0.0-1.0 Automated eosinophil count 0.0 10*3/uL 0 .0-0.3 Automated blood basophil count (count/volume) 0.0 10*3/uL 0.0-0.1 Comprehensive metabolic panel - 07/17/17 05:35 Serum or plasma sodium measurement (moles/volume) 143 mmol/L 135-145 Serum or plasma potassium measurement (moles/volume) 3.8 mmol/L 3.6-5.0 Serum or plasma chloride measurement (moles/volume) 107 mmol/L 98-107 Carbon dioxide 24 mmol/L 21-32 Serum or plasma anion gap determination (moles/volume) 12 mmol/L 5-14 Serum or plasma urea nitrogen measurement (mass/volume ) 28 mg/dL 7-18 Serum or plasma creatinine measurement (mass/volume) 1.07 mg/dL 0.60-1.30 Serum or plasma urea nitrogen/creatinine mass ratio 26 NRG Serum or plasma creatinine measurement w ith calculation of estimated glomerular filtration rate 53 NRG Serum or plasma glucose measurement (mass/volume) 176 mg/dL 70-105 Serum or plasma calcium measurement (mass/volume) 8.5 mg/dL 8.5-10.1 Serum or plasma total bilirubin measurement (mass/volu me) 0.5 mg/dL 0.1-1.0 Serum or plasma alkaline phosphatase doug surement (enzymatic activity/volume) 55 U/L 40-136 Serum or plasma aspartate aminotransfera se measurement (enzymatic activity/volume) 52 U/L 5-34 Serum or plasma alanine aminotransferase measurement (enzymatic activity/volume) 119 U/L 0-55 Serum or plasma protein measurement (mass/volume) 6.2 g/dL 6.4-8.2 Serum or plasma albumin measurement (mass/volume) 3.4 g/dL 3.2-4.5 Serum or plasma phosphate measurement (m ass/volume) - 07/17/17 05:35 Serum or plasma phosphate measurement (mass/volume) 2.5 mg/dL 2.3-4.7 Magnesium - 07/17/17 05:35 Magnesium 1.5 mg/dL 1.8-2.4 Capillary blood glucose measurement by g lucometer (mass/volume) - 07/17/17 08:20 Capillary blood glucose measurement by glucometer (mas s/volume) 138 mg/dL 70-110 Capillary blood glucose measurement by g lucometer (mass/volume) - 07/17/17 11:23 Capillary blood glucose measurement by glucometer (mas s/volume) 279 mg/dL 70-110 Capillary blood glucose measurement by g lucometer (mass/volume) - 07/17/17 15:20 Capillary blood glucose measurement by glucometer (mas s/volume) 321 mg/dL 70-110 Capillary blood glucose measurement by g lucometer (mass/volume) - 07/17/17 20:27 Capillary blood glucose measurement by glucometer (mas s/volume) 365 mg/dL 70-110 Capillary blood glucose measurement by g lucometer (mass/volume) - 07/17/17 23:08 Capillary blood glucose measurement by glucometer (mas s/volume) 313 mg/dL 70-110 Capillary blood glucose measurement by g lucometer (mass/volume) - 07/18/17 04:51 Capillary blood glucose measurement by glucometer (mas s/volume) 159 mg/dL 70-110 Arterial blood gas measurement - 8 04:55 Blood pCO2 34 mm[Hg] 35-45 Blood pO2 112 mm[Hg] 79-93 Arterial blood bicarbonate measurement (moles/volume) 25 mmol/L 23-27 Arterial blood base excess by calculation 1.1 mmol /L -2.5-2.5 Arterial blood oxygen saturation measurement 99 % 94-100 * Inhaled oxygen flow rate 40% BIPAP NR G Arterial blood pH measurement with patient temperature correction 7.47 7.37-7.43 Arterial blood carbon dioxide, total measurement (mole s/volume) 25.6 mmol/L 21.0-31.0 Body site L RAD NRG Assessment of wrist artery patency prior to arterial p uncture YES-POS NRG Setting of ventilation mode NO NR G Measurement of body temperature 97.7 NRG Complete blood count (CBC) with automate d white blood cell (WBC) differential - 07/18/17 05:10 Blood leukocytes automated count (number/volume) 12.2 10*3/uL 4.3-11.0 Blood erythrocytes automated count (number/volume) 4.16 10*6/uL 4.35-5.85 Venous blood hemoglobin measurement (mass/volume) 12.3 g/dL 11.5-16.0 Blood hematocrit (volume fraction) 37 % 35-52 Automated erythrocyte mean corpuscular volume 88 [ foz_us] 80-99 Automated erythrocyte mean corpuscular h emoglobin (mass per erythrocyte) 30 pg 25-34 Automated erythrocyte mean corpuscular h emoglobin concentration measurement (mass/volume) 34 g/dL 32-36 Automated erythrocyte distribution width ratio 14. 8 % 10.0- 14.5 Automated blood platelet count (count/volume) 143 10*3/uL 130-400 Automated blood platelet mean volume measurement 11.0 [foz_us] 7.4-10.4 Automated blood neutrophils/100 leukocytes 78 % 42-75 Automated blood lymphocytes/100 leukocytes 15 % 12-44 Blood monocytes/100 leukocytes 6 % 0-12 Automated blood eosinophils/100 leukocytes 0 % 0-10 Automated blood basophils/100 leukocytes 0 % 0-10 Blood neutrophils automated count (number/volume) 9.5 10*3 1.8-7.8 Blood lymphocytes automated count (number/volume) 1.9 10*3 1.0-4.0 Blood monocytes automated count (number/volume) 0. 7 10*3 0.0-1.0 Automated eosinophil count 0.0 10*3/uL 0 .0-0.3 Automated blood basophil count (count/volume) 0.1 10*3/uL 0.0-0.1 Comprehensive metabolic panel - 07/18/17 05:10 Serum or plasma sodium measurement (moles/volume) 143 mmol/L 135-145 Serum or plasma potassium measurement (moles/volume) 3.4 mmol/L 3.6-5.0 Serum or plasma chloride measurement (moles/volume) 107 mmol/L 98-107 Carbon dioxide 23 mmol/L 21-32 Serum or plasma anion gap determination (moles/volume) 13 mmol/L 5-14 Serum or plasma urea nitrogen measurement (mass/volume ) 24 mg/dL 7-18 Serum or plasma creatinine measurement (mass/volume) 0.81 mg/dL 0.60-1.30 Serum or plasma urea nitrogen/creatinine mass ratio 30 NRG Serum or plasma creatinine measurement w ith calculation of estimated glomerular filtration rate > NRG Serum or plasma glucose measurement (mass/volume) 161 mg/dL 70-105 Serum or plasma calcium measurement (mass/volume) 8.9 mg/dL 8.5-10.1 Serum or plasma total bilirubin measurement (mass/volu me) 0.6 mg/dL 0.1-1.0 Serum or plasma alkaline phosphatase doug surement (enzymatic activity/volume) 64 U/L 40-136 Serum or plasma aspartate aminotransfera se measurement (enzymatic activity/volume) 64 U/L 5-34 Serum or plasma alanine aminotransferase measurement (enzymatic activity/volume) 125 U/L 0-55 Serum or plasma protein measurement (mass/volume) 6.4 g/dL 6.4-8.2 Serum or plasma albumin measurement (mass/volume) 3.5 g/dL 3.2-4.5 Magnesium - 07/18/17 05:10 Magnesium 1.8 mg/dL 1.8-2.4 Digoxin - 07/18/17 05:10 Digoxin 0.40 ng/mL 0.80-2.00 Capillary blood glucose measurement by herbert lucometer (mass/volume) - 07/18/17 08:03 Capillary blood glucose measurement by glucometer (mas s/volume) 273 mg/dL 70-110 Capillary blood glucose measurement by g lucometer (mass/volume) - 07/18/17 11:37 Capillary blood glucose measurement by glucometer (mas s/volume) 217 mg/dL 70-110 Capillary blood glucose measurement by g lucometer (mass/volume) - 07/18/17 16:16 Capillary blood glucose measurement by glucometer (mas s/volume) 393 mg/dL 70-110 Capillary blood glucose measurement by g lucometer (mass/volume) - 07/18/17 20:49 Capillary blood glucose measurement by glucometer (mas s/volume) 424 mg/dL 70-110 Capillary blood glucose measurement by g lucometer (mass/volume) - 07/18/17 22:42 Capillary blood glucose measurement by glucometer (mas s/volume) 335 mg/dL 70-110 Capillary blood glucose measurement by g lucometer (mass/volume) - 07/18/17 23:45 Capillary blood glucose measurement by glucometer (mas s/volume) 304 mg/dL 70-110 Capillary blood glucose measurement by g lucometer (mass/volume) - 07/19/17 03:53 Capillary blood glucose measurement by glucometer (mas s/volume) 168 mg/dL 70-110 Complete blood count (CBC) with automate d white blood cell (WBC) differential - 07/19/17 04:09 Blood leukocytes automated count (number/volume) 12.4 10*3/uL 4.3-11.0 Blood erythrocytes automated count (number/volume) 4.11 10*6/uL 4.35-5.85 Venous blood hemoglobin measurement (mass/volume) 12.4 g/dL 11.5-16.0 Blood hematocrit (volume fraction) 36 % 35-52 Automated erythrocyte mean corpuscular volume 88 [ foz_us] 80-99 Automated erythrocyte mean corpuscular h emoglobin (mass per erythrocyte) 30 pg 25-34 Automated erythrocyte mean corpuscular h emoglobin concentration measurement (mass/volume) 34 g/dL 32-36 Automated erythrocyte distribution width ratio 14. 5 % 10.0- 14.5 Automated blood platelet count (count/volume) 155 10*3/uL 130-400 Automated blood platelet mean volume measurement 11.3 [foz_us] 7.4-10.4 Automated blood neutrophils/100 leukocytes 72 % 42-75 Automated blood lymphocytes/100 leukocytes 19 % 12-44 Blood monocytes/100 leukocytes 7 % 0-12 Automated blood eosinophils/100 leukocytes 1 % 0-10 Automated blood basophils/100 leukocytes 2 % 0-10 Blood neutrophils automated count (number/volume) 8.9 10*3 1.8-7.8 Blood lymphocytes automated count (number/volume) 2.3 10*3 1.0-4.0 Blood monocytes automated count (number/volume) 0. 9 10*3 0.0-1.0 Automated eosinophil count 0.1 10*3/uL 0 .0-0.3 Automated blood basophil count (count/volume) 0.2 10*3/uL 0.0-0.1 Whole blood basic metabolic panel - 08/31 04:09 Serum or plasma sodium measurement (moles/volume) 142 mmol/L 135-145 Serum or plasma potassium measurement (moles/volume) 3.6 mmol/L 3.6-5.0 Serum or plasma chloride measurement (moles/volume) 105 mmol/L 98-107 Carbon dioxide 23 mmol/L 21-32 Serum or plasma anion gap determination (moles/volume) 14 mmol/L 5-14 Serum or plasma urea nitrogen measurement (mass/volume ) 27 mg/dL 7-18 Serum or plasma creatinine measurement (mass/volume) 0.83 mg/dL 0.60-1.30 Serum or plasma urea nitrogen/creatinine mass ratio 33 NRG Serum or plasma creatinine measurement w ith calculation of estimated glomerular filtration rate > NRG Serum or plasma glucose measurement (mass/volume) 171 mg/dL 70-105 Serum or plasma calcium measurement (mass/volume) 9.3 mg/dL 8.5-10.1 Magnesium - 07/19/17 04:09 Magnesium 1.6 mg/dL 1.8-2.4 Capillary blood glucose measurement by g lucometer (mass/volume) - 07/19/17 07:43 Capillary blood glucose measurement by glucometer (mas s/volume) 125 mg/dL 70-110 Capillary blood glucose measurement by g lucometer (mass/volume) - 07/19/17 11:35 Capillary blood glucose measurement by glucometer (mas s/volume) 329 mg/dL 70-110 Capillary blood glucose measurement by g lucometer (mass/volume) - 07/19/17 15:38 Capillary blood glucose measurement by glucometer (mas s/volume) 425 mg/dL 70-110 Capillary blood glucose measurement by g lucometer (mass/volume) - 07/19/17 19:48 Capillary blood glucose measurement by glucometer (mas s/volume) 376 mg/dL 70-110 Capillary blood glucose measurement by g lucometer (mass/volume) - 07/20/17 00:05 Capillary blood glucose measurement by glucometer (mas s/volume) 312 mg/dL 70-110 Capillary blood glucose measurement by g lucometer (mass/volume) - 07/20/17 04:01 Capillary blood glucose measurement by glucometer (mas s/volume) 212 mg/dL 70-110 Complete blood count (CBC) with automate d white blood cell (WBC) differential - 07/20/17 06:57 Blood leukocytes automated count (number/volume) 12.3 10*3/uL 4.3-11.0 Blood erythrocytes automated count (number/volume) 4.12 10*6/uL 4.35-5.85 Venous blood hemoglobin measurement (mass/volume) 12.2 g/dL 11.5-16.0 Blood hematocrit (volume fraction) 36 % 35-52 Automated erythrocyte mean corpuscular volume 88 [ foz_us] 80-99 Automated erythrocyte mean corpuscular h emoglobin (mass per erythrocyte) 30 pg 25-34 Automated erythrocyte mean corpuscular h emoglobin concentration measurement (mass/volume) 34 g/dL 32-36 Automated erythrocyte distribution width ratio 14. 5 % 10.0- 14.5 Automated blood platelet count (count/volume) 171 10*3/uL 130-400 Automated blood platelet mean volume measurement 10.7 [foz_us] 7.4-10.4 Automated blood neutrophils/100 leukocytes 70 % 42-75 Automated blood lymphocytes/100 leukocytes 19 % 12-44 Blood monocytes/100 leukocytes 9 % 0-12 Automated blood eosinophils/100 leukocytes 1 % 0-10 Automated blood basophils/100 leukocytes 2 % 0-10 Blood neutrophils automated count (number/volume) 8.6 10*3 1.8-7.8 Blood lymphocytes automated count (number/volume) 2.3 10*3 1.0-4.0 Blood monocytes automated count (number/volume) 1. 1 10*3 0.0-1.0 Automated eosinophil count 0.1 10*3/uL 0 .0-0.3 Automated blood basophil count (count/volume) 0.2 10*3/uL 0.0-0.1 Liver function panel (serum or plasma al k phos, alb, total and direct bili, total protein, ALT, AST) - 07/20/17 06:57 Serum or plasma total bilirubin measurement (mass/volu me) 0.6 mg/dL 0.1-1.0 Serum or plasma alkaline phosphatase doug surement (enzymatic activity/volume) 59 U/L 40-136 Serum or plasma aspartate aminotransfera se measurement (enzymatic activity/volume) 46 U/L 5-34 Serum or plasma alanine aminotransferase measurement (enzymatic activity/volume) 118 U/L 0-55 Serum or plasma protein measurement (mass/volume) 6.2 g/dL 6.4-8.2 Serum or plasma albumin measurement (mass/volume) 3.4 g/dL 3.2-4.5 Bilirubin direct 0.2 mg/dL 0.0-0.3 Serum or plasma indirect bilirubin measurement (mass/v olume) 0.4 mg/dL NRG Whole blood basic metabolic panel - 10/01 06:57 Serum or plasma sodium measurement (moles/volume) 141 mmol/L 135-145 Serum or plasma potassium measurement (moles/volume) 4.0 mmol/L 3.6-5.0 Serum or plasma chloride measurement (moles/volume) 104 mmol/L 98-107 Carbon dioxide 27 mmol/L 21-32 Serum or plasma anion gap determination (moles/volume) 10 mmol/L 5-14 Serum or plasma urea nitrogen measurement (mass/volume ) 28 mg/dL 7-18 Serum or plasma creatinine measurement (mass/volume) 0.90 mg/dL 0.60-1.30 Serum or plasma urea nitrogen/creatinine mass ratio 31 NRG Serum or plasma creatinine measurement w ith calculation of estimated glomerular filtration rate > NRG Serum or plasma glucose measurement (mass/volume) 118 mg/dL 70-105 Serum or plasma calcium measurement (mass/volume) 10.0 mg/dL 8.5-10.1 Magnesium - 07/20/17 06:57 Magnesium 1.4 mg/dL 1.8-2.4 Capillary blood glucose measurement by g lucometer (mass/volume) - 07/20/17 08:48 Capillary blood glucose measurement by glucometer (mas s/volume) 101 mg/dL 70-110 Capillary blood glucose measurement by g lucometer (mass/volume) - 07/20/17 12:41 Capillary blood glucose measurement by glucometer (mas s/volume) 340 mg/dL 70-110 Capillary blood glucose measurement by g lucometer (mass/volume) - 07/20/17 15:55 Capillary blood glucose measurement by glucometer (mas s/volume) 389 mg/dL 70-110 Capillary blood glucose measurement by g lucometer (mass/volume) - 07/20/17 21:17 Capillary blood glucose measurement by glucometer (mas s/volume) 527 mg/dL 70-110 Capillary blood glucose measurement by g lucometer (mass/volume) - 07/21/17 05:29 Capillary blood glucose measurement by glucometer (mas s/volume) 230 mg/dL 70-110 Complete blood count (CBC) with automate d white blood cell (WBC) differential - 07/21/17 06:06 Blood leukocytes automated count (number/volume) 11.9 10*3/uL 4.3-11.0 Blood erythrocytes automated count (number/volume) 4.22 10*6/uL 4.35-5.85 Venous blood hemoglobin measurement (mass/volume) 12.6 g/dL 11.5-16.0 Blood hematocrit (volume fraction) 37 % 35-52 Automated erythrocyte mean corpuscular volume 88 [ foz_us] 80-99 Automated erythrocyte mean corpuscular h emoglobin (mass per erythrocyte) 30 pg 25-34 Automated erythrocyte mean corpuscular h emoglobin concentration measurement (mass/volume) 34 g/dL 32-36 Automated erythrocyte distribution width ratio 14. 5 % 10.0- 14.5 Automated blood platelet count (count/volume) 192 10*3/uL 130-400 Automated blood platelet mean volume measurement 11.2 [foz_us] 7.4-10.4 Automated blood neutrophils/100 leukocytes 75 % 42-75 Automated blood lymphocytes/100 leukocytes 18 % 12-44 Blood monocytes/100 leukocytes 5 % 0-12 Automated blood eosinophils/100 leukocytes 1 % 0-10 Automated blood basophils/100 leukocytes 1 % 0-10 Blood neutrophils automated count (number/volume) 8.9 10*3 1.8-7.8 Blood lymphocytes automated count (number/volume) 2.2 10*3 1.0-4.0 Blood monocytes automated count (number/volume) 0. 6 10*3 0.0-1.0 Automated eosinophil count 0.1 10*3/uL 0 .0-0.3 Automated blood basophil count (count/volume) 0.1 10*3/uL 0.0-0.1 Whole blood basic metabolic panel - 10/31 06:06 Serum or plasma sodium measurement (moles/volume) 140 mmol/L 135-145 Serum or plasma potassium measurement (moles/volume) 3.7 mmol/L 3.6-5.0 Serum or plasma chloride measurement (moles/volume) 98 mmol/L 98-107 Carbon dioxide 29 mmol/L 21-32 Serum or plasma anion gap determination (moles/volume) 13 mmol/L 5-14 Serum or plasma urea nitrogen measurement (mass/volume ) 32 mg/dL 7-18 Serum or plasma creatinine measurement (mass/volume) 0.98 mg/dL 0.60-1.30 Serum or plasma urea nitrogen/creatinine mass ratio 33 NRG Serum or plasma creatinine measurement w ith calculation of estimated glomerular filtration rate 58 NRG Serum or plasma glucose measurement (mass/volume) 240 mg/dL 70-105 Serum or plasma calcium measurement (mass/volume) 10.1 mg/dL 8.5-10.1 Magnesium - 07/21/17 06:06 Magnesium 1.6 mg/dL 1.8-2.4 Capillary blood glucose measurement by g lucometer (mass/volume) - 07/21/17 11:00 Capillary blood glucose measurement by glucometer (mas s/volume) 379 mg/dL 70-110 Capillary blood glucose measurement by g lucometer (mass/volume) - 07/21/17 15:50 Capillary blood glucose measurement by glucometer (mas s/volume) 403 mg/dL 70-110 Capillary blood glucose measurement by g lucometer (mass/volume) - 07/21/17 20:39 Capillary blood glucose measurement by glucometer (mas s/volume) 464 mg/dL 70-110 Capillary blood glucose measurement by g lucometer (mass/volume) - 07/22/17 05:52 Capillary blood glucose measurement by glucometer (mas s/volume) 250 mg/dL 70-110 Complete blood count (CBC) with automate d white blood cell (WBC) differential - 07/22/17 06:20 Blood leukocytes automated count (number/volume) 11.8 10*3/uL 4.3-11.0 Blood erythrocytes automated count (number/volume) 4.02 10*6/uL 4.35-5.85 Venous blood hemoglobin measurement (mass/volume) 11.9 g/dL 11.5-16.0 Blood hematocrit (volume fraction) 36 % 35-52 Automated erythrocyte mean corpuscular volume 89 [ foz_us] 80-99 Automated erythrocyte mean corpuscular h emoglobin (mass per erythrocyte) 30 pg 25-34 Automated erythrocyte mean corpuscular h emoglobin concentration measurement (mass/volume) 33 g/dL 32-36 Automated erythrocyte distribution width ratio 14. 9 % 10.0- 14.5 Automated blood platelet count (count/volume) 185 10*3/uL 130-400 Automated blood platelet mean volume measurement 10.9 [foz_us] 7.4-10.4 Automated blood neutrophils/100 leukocytes 73 % 42-75 Automated blood lymphocytes/100 leukocytes 19 % 12-44 Blood monocytes/100 leukocytes 6 % 0-12 Automated blood eosinophils/100 leukocytes 2 % 0-10 Automated blood basophils/100 leukocytes 1 % 0-10 Blood neutrophils automated count (number/volume) 8.6 10*3 1.8-7.8 Blood lymphocytes automated count (number/volume) 2.2 10*3 1.0-4.0 Blood monocytes automated count (number/volume) 0. 7 10*3 0.0-1.0 Automated eosinophil count 0.2 10*3/uL 0 .0-0.3 Automated blood basophil count (count/volume) 0.1 10*3/uL 0.0-0.1 Whole blood basic metabolic panel - 12/01 06:20 Serum or plasma sodium measurement (moles/volume) 137 mmol/L 135-145 Serum or plasma potassium measurement (moles/volume) 4.3 mmol/L 3.6-5.0 Serum or plasma chloride measurement (moles/volume) 101 mmol/L 98-107 Carbon dioxide 26 mmol/L 21-32 Serum or plasma anion gap determination (moles/volume) 10 mmol/L 5-14 Serum or plasma urea nitrogen measurement (mass/volume ) 36 mg/dL 7-18 Serum or plasma creatinine measurement (mass/volume) 1.02 mg/dL 0.60-1.30 Serum or plasma urea nitrogen/creatinine mass ratio 35 NRG Serum or plasma creatinine measurement w ith calculation of estimated glomerular filtration rate 56 NRG Serum or plasma glucose measurement (mass/volume) 264 mg/dL 70-105 Serum or plasma calcium measurement (mass/volume) 10.7 mg/dL 8.5-10.1 Magnesium - 07/22/17 06:20 Magnesium 1.5 mg/dL 1.8-2.4 Capillary blood glucose measurement by g lucometer (mass/volume) - 07/22/17 11:06 Capillary blood glucose measurement by glucometer (mas s/volume) 376 mg/dL 70-110 Capillary blood glucose measurement by g lucometer (mass/volume) - 07/22/17 16:01 Capillary blood glucose measurement by glucometer (mas s/volume) 354 mg/dL 70-110 Capillary blood glucose measurement by g lucometer (mass/volume) - 07/22/17 20:38 Capillary blood glucose measurement by glucometer (mas s/volume) 331 mg/dL 70-110 Complete blood count (CBC) with automate d white blood cell (WBC) differential - 07/23/17 06:21 Blood leukocytes automated count (number/volume) 11.0 10*3/uL 4.3-11.0 Blood erythrocytes automated count (number/volume) 3.96 10*6/uL 4.35-5.85 Venous blood hemoglobin measurement (mass/volume) 11.7 g/dL 11.5-16.0 Blood hematocrit (volume fraction) 36 % 35-52 Automated erythrocyte mean corpuscular volume 90 [ foz_us] 80-99 Automated erythrocyte mean corpuscular h emoglobin (mass per erythrocyte) 30 pg 25-34 Automated erythrocyte mean corpuscular h emoglobin concentration measurement (mass/volume) 33 g/dL 32-36 Automated erythrocyte distribution width ratio 14. 9 % 10.0- 14.5 Automated blood platelet count (count/volume) 191 10*3/uL 130-400 Automated blood platelet mean volume measurement 10.7 [foz_us] 7.4-10.4 Automated blood neutrophils/100 leukocytes 79 % 42-75 Automated blood lymphocytes/100 leukocytes 14 % 12-44 Blood monocytes/100 leukocytes 4 % 0-12 Automated blood eosinophils/100 leukocytes 2 % 0-10 Automated blood basophils/100 leukocytes 0 % 0-10 Blood neutrophils automated count (number/volume) 8.7 10*3 1.8-7.8 Blood lymphocytes automated count (number/volume) 1.6 10*3 1.0-4.0 Blood monocytes automated count (number/volume) 0. 4 10*3 0.0-1.0 Automated eosinophil count 0.2 10*3/uL 0 .0-0.3 Automated blood basophil count (count/volume) 0.0 10*3/uL 0.0-0.1 Comprehensive metabolic panel - 07/23/17 06:21 Serum or plasma sodium measurement (moles/volume) 142 mmol/L 135-145 Serum or plasma potassium measurement (moles/volume) 4.4 mmol/L 3.6-5.0 Serum or plasma chloride measurement (moles/volume) 105 mmol/L 98-107 Carbon dioxide 26 mmol/L 21-32 Serum or plasma anion gap determination (moles/volume) 11 mmol/L 5-14 Serum or plasma urea nitrogen measurement (mass/volume ) 28 mg/dL 7-18 Serum or plasma creatinine measurement (mass/volume) 1.06 mg/dL 0.60-1.30 Serum or plasma urea nitrogen/creatinine mass ratio 26 NRG Serum or plasma creatinine measurement w ith calculation of estimated glomerular filtration rate 53 NRG Serum or plasma glucose measurement (mass/volume) 183 mg/dL 70-105 Serum or plasma calcium measurement (mass/volume) 9.9 mg/dL 8.5-10.1 Serum or plasma total bilirubin measurement (mass/volu me) 0.5 mg/dL 0.1-1.0 Serum or plasma alkaline phosphatase doug surement (enzymatic activity/volume) 60 U/L 40-136 Serum or plasma aspartate aminotransfera se measurement (enzymatic activity/volume) 79 U/L 5-34 Serum or plasma alanine aminotransferase measurement (enzymatic activity/volume) 146 U/L 0-55 Serum or plasma protein measurement (mass/volume) 6.2 g/dL 6.4-8.2 Serum or plasma albumin measurement (mass/volume) 3.5 g/dL 3.2-4.5 Liver function panel (serum or plasma al k phos, alb, total and direct bili, total protein, ALT, AST) - 07/23/17 06:21 Bilirubin direct 0.2 mg/dL 0.0-0.3 Serum or plasma indirect bilirubin measurement (mass/v olume) 0.3 mg/dL NRG Magnesium - 07/23/17 06:21 Magnesium 1.6 mg/dL 1.8-2.4 Capillary blood glucose measurement by g lucometer (mass/volume) - 07/23/17 06:32 Capillary blood glucose measurement by glucometer (mas s/volume) 196 mg/dL 70-110 Capillary blood glucose measurement by g lucometer (mass/volume) - 07/23/17 11:04 Capillary blood glucose measurement by glucometer (mas s/volume) 174 mg/dL 70-110 Capillary blood glucose measurement by g lucometer (mass/volume) - 07/23/17 20:33 Capillary blood glucose measurement by glucometer (mas s/volume) 341 mg/dL 70-110 Capillary blood glucose measurement by g lucometer (mass/volume) - 07/24/17 05:20 Capillary blood glucose measurement by glucometer (mas s/volume) 246 mg/dL 70-110 Complete blood count (CBC) with automate d white blood cell (WBC) differential - 07/24/19 03:15 Blood leukocytes automated count (number/volume) 7.0 10*3/uL 4.3-11.0 Blood erythrocytes automated count (number/volume) 3.95 10*6/uL 4.35-5.85 Venous blood hemoglobin measurement (mass/volume) 11.6 g/dL 11.5-16.0 Blood hematocrit (volume fraction) 36 % 35-52 Automated erythrocyte mean corpuscular volume 90 [ foz_us] 80-99 Automated erythrocyte mean corpuscular h emoglobin (mass per erythrocyte) 29 pg 25-34 Automated erythrocyte mean corpuscular h emoglobin concentration measurement (mass/volume) 33 g/dL 32-36 Automated erythrocyte distribution width ratio 14. 4 % 10.0- 14.5 Automated blood platelet count (count/volume) 135 10*3/uL 130-400 Automated blood platelet mean volume measurement 10.1 [foz_us] 7.4-10.4 Automated blood neutrophils/100 leukocytes 73 % 42-75 Automated blood lymphocytes/100 leukocytes 16 % 12-44 Blood monocytes/100 leukocytes 8 % 0-12 Automated blood eosinophils/100 leukocytes 3 % 0-10 Automated blood basophils/100 leukocytes 0 % 0-10 Blood neutrophils automated count (number/volume) 5.1 10*3 1.8-7.8 Blood lymphocytes automated count (number/volume) 1.1 10*3 1.0-4.0 Blood monocytes automated count (number/volume) 0. 6 10*3 0.0-1.0 Automated eosinophil count 0.2 10*3/uL 0 .0-0.3 Automated blood basophil count (count/volume) 0.0 10*3/uL 0.0-0.1 Whole blood basic metabolic panel - 01/31 05:55 Serum or plasma sodium measurement (moles/volume) 140 mmol/L 135-145 Serum or plasma potassium measurement (moles/volume) 4.6 mmol/L 3.6-5.0 Serum or plasma chloride measurement (moles/volume) 103 mmol/L 98-107 Carbon dioxide 28 mmol/L 21-32 Serum or plasma anion gap determination (moles/volume) 9 mmol/L 5-14 Serum or plasma urea nitrogen measurement (mass/volume ) 25 mg/dL 7-18 Serum or plasma creatinine measurement (mass/volume) 1.03 mg/dL 0.60-1.30 Serum or plasma urea nitrogen/creatinine mass ratio 24 NRG Serum or plasma creatinine measurement w ith calculation of estimated glomerular filtration rate 55 NRG Serum or plasma glucose measurement (mass/volume) 217 mg/dL 70-105 Serum or plasma calcium measurement (mass/volume) 10.0 mg/dL 8.5-10.1 Magnesium - 07/24/17 05:55 Magnesium 1.6 mg/dL 1.8-2.4 Capillary blood glucose measurement by g lucometer (mass/volume) - 06/02/18 09:48 Capillary blood glucose measurement by glucometer (mas s/volume) 106 mg/dL 70-110 [id number] - 07/01/18 07:55 Serum or plasma urea nitrogen measurement (mass/volume ) 19 mg/dL 7-18 Serum or plasma creatinine measurement (mass/volume) 1.26 mg/dL 0.60-1.30 Serum or plasma urea nitrogen/creatinine mass ratio 15 NRG Serum or plasma creatinine measurement w ith calculation of estimated glomerular filtration rate 44 NRG Complete blood count (CBC) with automate d white blood cell (WBC) differential - 07/30/18 09:15 Blood leukocytes automated count (number/volume) 7.2 10*3/uL 4.3-11.0 Blood erythrocytes automated count (number/volume) 5.11 10*6/uL 4.35-5.85 Venous blood hemoglobin measurement (mass/volume) 13.3 g/dL 11.5-16.0 Blood hematocrit (volume fraction) 42 % 35-52 Automated erythrocyte mean corpuscular volume 81 [ foz_us] 80-99 Automated erythrocyte mean corpuscular h emoglobin (mass per erythrocyte) 26 pg 25-34 Automated erythrocyte mean corpuscular h emoglobin concentration measurement (mass/volume) 32 g/dL 32-36 Automated erythrocyte distribution width ratio 17. 8 % 10.0- 14.5 Automated blood platelet count (count/volume) 173 10*3/uL 130-400 Automated blood platelet mean volume measurement 10.6 [foz_us] 7.4-10.4 Automated blood neutrophils/100 leukocytes 67 % 42-75 Automated blood lymphocytes/100 leukocytes 23 % 12-44 Blood monocytes/100 leukocytes 8 % 0-12 Automated blood eosinophils/100 leukocytes 3 % 0-10 Automated blood basophils/100 leukocytes 0 % 0-10 Blood neutrophils automated count (number/volume) 4.8 10*3 1.8-7.8 Blood lymphocytes automated count (number/volume) 1.6 10*3 1.0-4.0 Blood monocytes automated count (number/volume) 0. 5 10*3 0.0-1.0 Automated eosinophil count 0.2 10*3/uL 0 .0-0.3 Automated blood basophil count (count/volume) 0.0 10*3/uL 0.0-0.1 Whole blood basic metabolic panel - 07/17 10/02 09:15 Serum or plasma sodium measurement (moles/volume) 139 mmol/L 135-145 Serum or plasma potassium measurement (moles/volume) 4.9 mmol/L 3.6-5.0 Serum or plasma chloride measurement (moles/volume) 106 mmol/L 98-107 Carbon dioxide 24 mmol/L 21-32 Serum or plasma anion gap determination (moles/volume) 9 mmol/L 5-14 Serum or plasma urea nitrogen measurement (mass/volume ) 21 mg/dL 7-18 Serum or plasma creatinine measurement (mass/volume) 1.22 mg/dL 0.60-1.30 Serum or plasma urea nitrogen/creatinine mass ratio 17 NRG Serum or plasma creatinine measurement w ith calculation of estimated glomerular filtration rate 45 NRG Serum or plasma glucose measurement (mass/volume) 129 mg/dL 70-105 Serum or plasma calcium measurement (mass/volume) 9.8 mg/dL 8.5-10.1 Methicillin resistant Staphylococcus aur eus (MRSA) screening culture - 07/30/18 09:15 Methicillin resistant Staphylococcus aureus (MRSA) scr eening culture NEG NRG Capillary blood glucose measurement by g lucometer (mass/volume) - 08/06/18 10:38 Capillary blood glucose measurement by glucometer (mas s/volume) 130 mg/dL 70-110 Automated blood complete blood count (he mogram) panel - 08/07/18 05:35 Blood leukocytes automated count (number/volume) 10.3 10*3/uL 4.3-11.0 Blood erythrocytes automated count (number/volume) 4.73 10*6/uL 4.35-5.85 Venous blood hemoglobin measurement (mass/volume) 12.3 g/dL 11.5-16.0 Blood hematocrit (volume fraction) 40 % 35-52 Automated erythrocyte mean corpuscular volume 84 [ foz_us] 80-99 Automated erythrocyte mean corpuscular h emoglobin (mass per erythrocyte) 26 pg 25-34 Automated erythrocyte mean corpuscular h emoglobin concentration measurement (mass/volume) 31 g/dL 32-36 Automated erythrocyte distribution width ratio 17. 5 % 10.0- 14.5 Automated blood platelet count (count/volume) 158 10*3/uL 130-400 Automated blood platelet mean volume measurement 9.7 [foz_us] 7.4-10.4 Whole blood basic metabolic panel - 07/18 08/04 05:35 Serum or plasma sodium measurement (moles/volume) 139 mmol/L 135-145 Serum or plasma potassium measurement (moles/volume) 4.4 mmol/L 3.6-5.0 Serum or plasma chloride measurement (moles/volume) 105 mmol/L 98-107 Carbon dioxide 28 mmol/L 21-32 Serum or plasma anion gap determination (moles/volume) 6 mmol/L 5-14 Serum or plasma urea nitrogen measurement (mass/volume ) 10 mg/dL 7-18 Serum or plasma creatinine measurement (mass/volume) 1.11 mg/dL 0.60-1.30 Serum or plasma urea nitrogen/creatinine mass ratio 9 NRG Serum or plasma creatinine measurement w ith calculation of estimated glomerular filtration rate 50 NRG Serum or plasma glucose measurement (mass/volume) 158 mg/dL 70-105 Serum or plasma calcium measurement (mass/volume) 9.1 mg/dL 8.5-10.1 Serum or plasma phosphate measurement (m ass/volume) - 08/07/18 05:35 Serum or plasma phosphate measurement (mass/volume) 4.9 mg/dL 2.3-4.7 Magnesium - 08/07/18 05:35 Magnesium 1.5 mg/dL 1.8-2.4 Hemoglobin A1c - 08/07/18 05:35 Blood hemoglobin A1C measurement (mass/volume) 7.0 % 4.0-5.6 MEAN BLOOD GLUCOSE 154 % <=126 Capillary blood glucose measurement by g lucometer (mass/volume) - 08/07/18 09:24 Capillary blood glucose measurement by glucometer (mas s/volume) 175 mg/dL 70-110 Capillary blood glucose measurement by g lucometer (mass/volume) - 08/07/18 17:17 Capillary blood glucose measurement by glucometer (mas s/volume) 182 mg/dL 70-110 Capillary blood glucose measurement by g lucometer (mass/volume) - 08/07/18 20:41 Capillary blood glucose measurement by glucometer (mas s/volume) 168 mg/dL 70-110 Automated blood complete blood count (he mogram) panel - 08/08/18 05:05 Blood leukocytes automated count (number/volume) 8.5 10*3/uL 4.3-11.0 Blood erythrocytes automated count (number/volume) 4.33 10*6/uL 4.35-5.85 Venous blood hemoglobin measurement (mass/volume) 11.2 g/dL 11.5-16.0 Blood hematocrit (volume fraction) 36 % 35-52 Automated erythrocyte mean corpuscular volume 84 [ foz_us] 80-99 Automated erythrocyte mean corpuscular h emoglobin (mass per erythrocyte) 26 pg 25-34 Automated erythrocyte mean corpuscular h emoglobin concentration measurement (mass/volume) 31 g/dL 32-36 Automated erythrocyte distribution width ratio 17. 5 % 10.0- 14.5 Automated blood platelet count (count/volume) 163 10*3/uL 130-400 Automated blood platelet mean volume measurement 9.5 [foz_us] 7.4-10.4 Whole blood basic metabolic panel - 07/18 09/01 05:05 Serum or plasma sodium measurement (moles/volume) 140 mmol/L 135-145 Serum or plasma potassium measurement (moles/volume) 4.3 mmol/L 3.6-5.0 Serum or plasma chloride measurement (moles/volume) 104 mmol/L 98-107 Carbon dioxide 28 mmol/L 21-32 Serum or plasma anion gap determination (moles/volume) 8 mmol/L 5-14 Serum or plasma urea nitrogen measurement (mass/volume ) 7 mg/dL 7-18 Serum or plasma creatinine measurement (mass/volume) 0.91 mg/dL 0.60-1.30 Serum or plasma urea nitrogen/creatinine mass ratio 8 NRG Serum or plasma creatinine measurement w ith calculation of estimated glomerular filtration rate > NRG Serum or plasma glucose measurement (mass/volume) 133 mg/dL 70-105 Serum or plasma calcium measurement (mass/volume) 9.1 mg/dL 8.5-10.1 Magnesium - 08/08/18 05:05 Magnesium 1.6 mg/dL 1.8-2.4 Capillary blood glucose measurement by g lucometer (mass/volume) - 08/08/18 16:11 Capillary blood glucose measurement by glucometer (mas s/volume) 131 mg/dL 70-110 Capillary blood glucose measurement by g lucometer (mass/volume) - 08/08/18 20:22 Capillary blood glucose measurement by glucometer (mas s/volume) 212 mg/dL 70-110 Automated blood complete blood count (he mogram) panel - 08/09/18 05:30 Blood leukocytes automated count (number/volume) 8.4 10*3/uL 4.3-11.0 Blood erythrocytes automated count (number/volume) 4.68 10*6/uL 4.35-5.85 Venous blood hemoglobin measurement (mass/volume) 12.2 g/dL 11.5-16.0 Blood hematocrit (volume fraction) 39 % 35-52 Automated erythrocyte mean corpuscular volume 84 [ foz_us] 80-99 Automated erythrocyte mean corpuscular h emoglobin (mass per erythrocyte) 26 pg 25-34 Automated erythrocyte mean corpuscular h emoglobin concentration measurement (mass/volume) 31 g/dL 32-36 Automated erythrocyte distribution width ratio 17. 0 % 10.0- 14.5 Automated blood platelet count (count/volume) 148 10*3/uL 130-400 Automated blood platelet mean volume measurement 9.9 [foz_us] 7.4-10.4 Whole blood basic metabolic panel - 07/18 10/02 05:30 Serum or plasma sodium measurement (moles/volume) 140 mmol/L 135-145 Serum or plasma potassium measurement (moles/volume) 3.8 mmol/L 3.6-5.0 Serum or plasma chloride measurement (moles/volume) 99 mmol/L 98-107 Carbon dioxide 31 mmol/L 21-32 Serum or plasma anion gap determination (moles/volume) 10 mmol/L 5-14 Serum or plasma urea nitrogen measurement (mass/volume ) 6 mg/dL 7-18 Serum or plasma creatinine measurement (mass/volume) 0.82 mg/dL 0.60-1.30 Serum or plasma urea nitrogen/creatinine mass ratio 7 NRG Serum or plasma creatinine measurement w ith calculation of estimated glomerular filtration rate > NRG Serum or plasma glucose measurement (mass/volume) 154 mg/dL 70-105 Serum or plasma calcium measurement (mass/volume) 9.8 mg/dL 8.5-10.1 Magnesium - 08/09/18 05:30 Magnesium 1.6 mg/dL 1.8-2.4 Capillary blood glucose measurement by g lucometer (mass/volume) - 08/09/18 11:04 Capillary blood glucose measurement by glucometer (mas s/volume) 174 mg/dL 70-110 Capillary blood glucose measurement by g lucometer (mass/volume) - 08/09/18 16:15 Capillary blood glucose measurement by glucometer (mas s/volume) 147 mg/dL 70-110 Capillary blood glucose measurement by g lucometer (mass/volume) - 08/09/18 19:59 Capillary blood glucose measurement by glucometer (mas s/volume) 381 mg/dL 70-110 Automated blood complete blood count (he mogram) panel - 08/10/18 05:00 Blood leukocytes automated count (number/volume) 6.2 10*3/uL 4.3-11.0 Blood erythrocytes automated count (number/volume) 4.36 10*6/uL 4.35-5.85 Venous blood hemoglobin measurement (mass/volume) 11.6 g/dL 11.5-16.0 Blood hematocrit (volume fraction) 36 % 35-52 Automated erythrocyte mean corpuscular volume 84 [ foz_us] 80-99 Automated erythrocyte mean corpuscular h emoglobin (mass per erythrocyte) 27 pg 25-34 Automated erythrocyte mean corpuscular h emoglobin concentration measurement (mass/volume) 32 g/dL 32-36 Automated erythrocyte distribution width ratio 17. 0 % 10.0- 14.5 Automated blood platelet count (count/volume) 160 10*3/uL 130-400 Automated blood platelet mean volume measurement 9.7 [foz_us] 7.4-10.4 Whole blood basic metabolic panel - 07/18 11/01 05:00 Serum or plasma sodium measurement (moles/volume) 143 mmol/L 135-145 Serum or plasma potassium measurement (moles/volume) 4.0 mmol/L 3.6-5.0 Serum or plasma chloride measurement (moles/volume) 102 mmol/L 98-107 Carbon dioxide 32 mmol/L 21-32 Serum or plasma anion gap determination (moles/volume) 9 mmol/L 5-14 Serum or plasma urea nitrogen measurement (mass/volume ) 10 mg/dL 7-18 Serum or plasma creatinine measurement (mass/volume) 0.85 mg/dL 0.60-1.30 Serum or plasma urea nitrogen/creatinine mass ratio 12 NRG Serum or plasma creatinine measurement w ith calculation of estimated glomerular filtration rate > NRG Serum or plasma glucose measurement (mass/volume) 145 mg/dL 70-105 Serum or plasma calcium measurement (mass/volume) 9.7 mg/dL 8.5-10.1 Magnesium - 08/10/18 05:00 Magnesium 1.4 mg/dL 1.8-2.4 Capillary blood glucose measurement by g lucometer (mass/volume) - 08/10/18 11:14 Capillary blood glucose measurement by glucometer (mas s/volume) 269 mg/dL 70-110 Complete blood count (CBC) with automate d white blood cell (WBC) differential - 07/23/19 11:25 Blood leukocytes automated count (number/volume) 9.6 10*3/uL 4.3-11.0 Blood erythrocytes automated count (number/volume) 4.51 10*6/uL 4.35-5.85 Venous blood hemoglobin measurement (mass/volume) 13.4 g/dL 11.5-16.0 Blood hematocrit (volume fraction) 40 % 35-52 Automated erythrocyte mean corpuscular volume 89 [ foz_us] 80-99 Automated erythrocyte mean corpuscular h emoglobin (mass per erythrocyte) 30 pg 25-34 Automated erythrocyte mean corpuscular h emoglobin concentration measurement (mass/volume) 33 g/dL 32-36 Automated erythrocyte distribution width ratio 14. 3 % 10.0- 14.5 Automated blood platelet count (count/volume) 154 10*3/uL 130-400 Automated blood platelet mean volume measurement 10.3 [foz_us] 7.4-10.4 Automated blood neutrophils/100 leukocytes 84 % 42-75 Automated blood lymphocytes/100 leukocytes 6 % 12-44 Blood monocytes/100 leukocytes 10 % 0-12 Automated blood eosinophils/100 leukocytes 1 % 0-10 Automated blood basophils/100 leukocytes 0 % 0-10 Blood neutrophils automated count (number/volume) 8.1 10*3 1.8-7.8 Blood lymphocytes automated count (number/volume) 0.5 10*3 1.0-4.0 Blood monocytes automated count (number/volume) 0. 9 10*3 0.0-1.0 Automated eosinophil count 0.1 10*3/uL 0 .0-0.3 Automated blood basophil count (count/volume) 0.0 10*3/uL 0.0-0.1 Manual absolute plasma cell count - 01/02 11:25 Blood monocytes/100 leukocytes 5 % NRG Manual blood segmented neutrophils/100 leukocytes 82 % NRG Blood band neutrophils/100 leukocytes 6 % NRG Manual blood lymphocytes/100 leukocytes 6 % NRG Manual eosinophils/100 leukocytes in nose 0 % NRG Manual blood basophils/100 leukocytes 1 % NRG Blood ovalocytes detection by light microscopy [facility] Comprehensive metabolic panel - 07/23/19 11:25 Serum or plasma sodium measurement (moles/volume) 139 mmol/L 135-145 Serum or plasma potassium measurement (moles/volume) 5.4 mmol/L 3.6-5.0 Serum or plasma chloride measurement (moles/volume) 105 mmol/L 98-107 Carbon dioxide 23 mmol/L 21-32 Serum or plasma anion gap determination (moles/volume) 11 mmol/L 5-14 Serum or plasma urea nitrogen measurement (mass/volume ) 21 mg/dL 7-18 Serum or plasma creatinine measurement (mass/volume) 1.86 mg/dL 0.60-1.30 Serum or plasma urea nitrogen/creatinine mass ratio 11 NRG Serum or plasma creatinine measurement w ith calculation of estimated glomerular filtration rate 28 NRG Serum or plasma glucose measurement (mass/volume) 214 mg/dL 70-105 Serum or plasma calcium measurement (mass/volume) 9.7 mg/dL 8.5-10.1 Serum or plasma total bilirubin measurement (mass/volu me) 0.7 mg/dL 0.1-1.0 Serum or plasma alkaline phosphatase doug surement (enzymatic activity/volume) 53 U/L 40-136 Serum or plasma aspartate aminotransfera se measurement (enzymatic activity/volume) 19 U/L 5-34 Serum or plasma alanine aminotransferase measurement (enzymatic activity/volume) 25 U/L 0-55 Serum or plasma protein measurement (mass/volume) 7.2 g/dL 6.4-8.2 Serum or plasma albumin measurement (mass/volume) 4.2 g/dL 3.2-4.5 CALCIUM CORRECTED 9.5 mg/dL 8.5-10.1 Whole blood basic metabolic panel - 02/02 03:15 Serum or plasma sodium measurement (moles/volume) 140 mmol/L 135-145 Serum or plasma potassium measurement (moles/volume) 4.7 mmol/L 3.6-5.0 Serum or plasma chloride measurement (moles/volume) 108 mmol/L 98-107 Carbon dioxide 24 mmol/L -32 Serum or plasma anion gap determination (moles/volume) 8 mmol/L 5-14 Serum or plasma urea nitrogen measurement (mass/volume ) 18 mg/dL 7-18 Serum or plasma creatinine measurement (mass/volume) 1.37 mg/dL 0.60-1.30 Serum or plasma urea nitrogen/creatinine mass ratio 13 NRG Serum or plasma creatinine measurement w ith calculation of estimated glomerular filtration rate 39 NRG Serum or plasma glucose measurement (mass/volume) 212 mg/dL 70-105 Serum or plasma calcium measurement (mass/volume) 8.9 mg/dL 8.5-10.1 Serum or plasma phosphate measurement (m ass/volume) - 07/24/19 03:15 Serum or plasma phosphate measurement (mass/volume) 3.6 mg/dL 2.3-4.7 Magnesium - 07/24/19 03:15 Magnesium 1.5 mg/dL 1.6-2.4 Capillary blood glucose measurement by g lucometer (mass/volume) - 07/24/19 15:27 Capillary blood glucose measurement by glucometer (mas s/volume) 287 mg/dL 70-110 Capillary blood glucose measurement by g lucometer (mass/volume) - 07/24/19 21:14 Capillary blood glucose measurement by glucometer (mas s/volume) 265 mg/dL 70-110 Complete blood count (CBC) with automate d white blood cell (WBC) differential - 07/25/19 03:17 Blood leukocytes automated count (number/volume) 5.2 10*3/uL 4.3-11.0 Blood erythrocytes automated count (number/volume) 3.79 10*6/uL 4.35-5.85 Venous blood hemoglobin measurement (mass/volume) 11.2 g/dL 11.5-16.0 Blood hematocrit (volume fraction) 35 % 35-52 Automated erythrocyte mean corpuscular volume 92 [ foz_us] 80-99 Automated erythrocyte mean corpuscular h emoglobin (mass per erythrocyte) 30 pg 25-34 Automated erythrocyte mean corpuscular h emoglobin concentration measurement (mass/volume) 32 g/dL 32-36 Automated erythrocyte distribution width ratio 14. 4 % 10.0- 14.5 Automated blood platelet count (count/volume) 129 10*3/uL 130-400 Automated blood platelet mean volume measurement 10.4 [foz_us] 7.4-10.4 Automated blood neutrophils/100 leukocytes 59 % 42-75 Automated blood lymphocytes/100 leukocytes 27 % 12-44 Blood monocytes/100 leukocytes 10 % 0-12 Automated blood eosinophils/100 leukocytes 5 % 0-10 Automated blood basophils/100 leukocytes 0 % 0-10 Blood neutrophils automated count (number/volume) 3.1 10*3 1.8-7.8 Blood lymphocytes automated count (number/volume) 1.4 10*3 1.0-4.0 Blood monocytes automated count (number/volume) 0. 5 10*3 0.0-1.0 Automated eosinophil count 0.3 10*3/uL 0 .0-0.3 Automated blood basophil count (count/volume) 0.0 10*3/uL 0.0-0.1 Comprehensive metabolic panel - 07/25/19 03:17 Serum or plasma sodium measurement (moles/volume) 142 mmol/L 135-145 Serum or plasma potassium measurement (moles/volume) 5.2 mmol/L 3.6-5.0 Serum or plasma chloride measurement (moles/volume) 111 mmol/L 98-107 Carbon dioxide 25 mmol/L 21-32 Serum or plasma anion gap determination (moles/volume) 6 mmol/L 5-14 Serum or plasma urea nitrogen measurement (mass/volume ) 17 mg/dL 7-18 Serum or plasma creatinine measurement (mass/volume) 1.25 mg/dL 0.60-1.30 Serum or plasma urea nitrogen/creatinine mass ratio 14 NRG Serum or plasma creatinine measurement w ith calculation of estimated glomerular filtration rate 44 NRG Serum or plasma glucose measurement (mass/volume) 256 mg/dL 70-105 Serum or plasma calcium measurement (mass/volume) 8.5 mg/dL 8.5-10.1 Serum or plasma total bilirubin measurement (mass/volu me) 0.3 mg/dL 0.1-1.0 Serum or plasma alkaline phosphatase doug surement (enzymatic activity/volume) 52 U/L 40-136 Serum or plasma aspartate aminotransfera se measurement (enzymatic activity/volume) 19 U/L 5-34 Serum or plasma alanine aminotransferase measurement (enzymatic activity/volume) 22 U/L 0-55 Serum or plasma protein measurement (mass/volume) 6.1 g/dL 6.4-8.2 Serum or plasma albumin measurement (mass/volume) 3.4 g/dL 3.2-4.5 CALCIUM CORRECTED 9.0 mg/dL 8.5-10.1 Serum or plasma phosphate measurement (m ass/volume) - 07/25/19 03:17 Serum or plasma phosphate measurement (mass/volume) 2.7 mg/dL 2.3-4.7 Magnesium - 07/25/19 03:17 Magnesium 1.7 mg/dL 1.6-2.4 Capillary blood glucose measurement by g lucometer (mass/volume) - 07/25/19 05:58 Capillary blood glucose measurement by glucometer (mas s/volume) 245 mg/dL 70-110 Capillary blood glucose measurement by g lucometer (mass/volume) - 07/25/19 10:27 Capillary blood glucose measurement by glucometer (mas s/volume) 268 mg/dL 70-110 Capillary blood glucose measurement by g lucometer (mass/volume) - 07/25/19 15:37 Capillary blood glucose measurement by glucometer (mas s/volume) 255 mg/dL 70-110 Capillary blood glucose measurement by g lucometer (mass/volume) - 07/25/19 20:24 Capillary blood glucose measurement by glucometer (mas s/volume) 318 mg/dL 70-110 Complete blood count (CBC) with automate d white blood cell (WBC) differential - 07/26/19 05:45 Blood leukocytes automated count (number/volume) 7.0 10*3/uL 4.3-11.0 Blood erythrocytes automated count (number/volume) 3.69 10*6/uL 4.35-5.85 Venous blood hemoglobin measurement (mass/volume) 10.8 g/dL 11.5-16.0 Blood hematocrit (volume fraction) 34 % 35-52 Automated erythrocyte mean corpuscular volume 92 [ foz_us] 80-99 Automated erythrocyte mean corpuscular h emoglobin (mass per erythrocyte) 29 pg 25-34 Automated erythrocyte mean corpuscular h emoglobin concentration measurement (mass/volume) 32 g/dL 32-36 Automated erythrocyte distribution width ratio 14. 5 % 10.0- 14.5 Automated blood platelet count (count/volume) 142 10*3/uL 130-400 Automated blood platelet mean volume measurement 10.1 [foz_us] 7.4-10.4 Automated blood neutrophils/100 leukocytes 70 % 42-75 Automated blood lymphocytes/100 leukocytes 16 % 12-44 Blood monocytes/100 leukocytes 9 % 0-12 Automated blood eosinophils/100 leukocytes 5 % 0-10 Automated blood basophils/100 leukocytes 0 % 0-10 Blood neutrophils automated count (number/volume) 4.8 10*3 1.8-7.8 Blood lymphocytes automated count (number/volume) 1.1 10*3 1.0-4.0 Blood monocytes automated count (number/volume) 0. 6 10*3 0.0-1.0 Automated eosinophil count 0.4 10*3/uL 0 .0-0.3 Automated blood basophil count (count/volume) 0.0 10*3/uL 0.0-0.1 Whole blood basic metabolic panel - 07/17 05:45 Serum or plasma sodium measurement (moles/volume) 142 mmol/L 135-145 Serum or plasma potassium measurement (moles/volume) 5.3 mmol/L 3.6-5.0 Serum or plasma chloride measurement (moles/volume) 112 mmol/L 98-107 Carbon dioxide 26 mmol/L 21-32 Serum or plasma anion gap determination (moles/volume) 4 mmol/L 5-14 Serum or plasma urea nitrogen measurement (mass/volume ) 12 mg/dL 7-18 Serum or plasma creatinine measurement (mass/volume) 1.20 mg/dL 0.60-1.30 Serum or plasma urea nitrogen/creatinine mass ratio 10 NRG Serum or plasma creatinine measurement w ith calculation of estimated glomerular filtration rate 46 NRG Serum or plasma glucose measurement (mass/volume) 163 mg/dL 70-105 Serum or plasma calcium measurement (mass/volume) 8.9 mg/dL 8.5-10.1 Serum or plasma phosphate measurement (m ass/volume) - 07/26/19 05:45 Serum or plasma phosphate measurement (mass/volume) 3.4 mg/dL 2.3-4.7 Magnesium - 07/26/19 05:45 Magnesium 1.4 mg/dL 1.6-2.4 Serum or plasma lithium measurement (mol es/volume) - 07/26/19 05:45 BNP PT 405.9 pg/mL <100.0 Blood lactic acid measurement (moles/vol ume) - 07/26/19 06:50 Blood lactic acid measurement (moles/volume) 0.78 mmol/L 0.50-2.00 Arterial blood gas measurement - 0 07:32 Blood pCO2 53 mm[Hg] 35-45 Blood pO2 81 mm[Hg] 79-93 Arterial blood bicarbonate measurement (moles/volume) 26 mmol/L 23-27 Arterial blood base excess by calculation 0.0 mmol /L -2.5-2.5 Arterial blood oxygen saturation measurement 97 % 94-100 * Inhaled oxygen flow rate 4L NRG Arterial blood pH measurement with patient temperature correction 7.30 7.37-7.43 Arterial blood carbon dioxide, total measurement (mole s/volume) 27.4 mmol/L 21.0-31.0 Body site R BRACH NRG Assessment of wrist artery patency prior to arterial p uncture YES-POS NRG Setting of ventilation mode NO NR G Measurement of body temperature 36.5 NRG Arterial blood gas measurement - 0 11:03 Blood pCO2 46 mm[Hg] 35-45 Blood pO2 74 mm[Hg] 79-93 Arterial blood bicarbonate measurement (moles/volume) 26 mmol/L 23-27 Arterial blood base excess by calculation 1.5 mmol /L -2.5-2.5 Arterial blood oxygen saturation measurement 97 % 94-100 * Inhaled oxygen flow rate 30% NRG Arterial blood pH measurement with patient temperature correction 7.37 7.37-7.43 Arterial blood carbon dioxide, total measurement (mole s/volume) 27.7 mmol/L 21.0-31.0 Body site R BRACH NRG Assessment of wrist artery patency prior to arterial p uncture YES-POS NRG Setting of ventilation mode NO NR G Measurement of body temperature 36.5 NRG Capillary blood glucose measurement by g lucometer (mass/volume) - 07/26/19 11:08 Capillary blood glucose measurement by glucometer (mas s/volume) 375 mg/dL 70-110 Capillary blood glucose measurement by g lucometer (mass/volume) - 07/26/19 16:25 Capillary blood glucose measurement by glucometer (mas s/volume) 395 mg/dL 70-110 Capillary blood glucose measurement by g lucometer (mass/volume) - 07/26/19 20:13 Capillary blood glucose measurement by glucometer (mas s/volume) 442 mg/dL 70-110 Capillary blood glucose measurement by g lucometer (mass/volume) - 07/27/19 05:37 Capillary blood glucose measurement by glucometer (mas s/volume) 195 mg/dL 70-110 Complete blood count (CBC) with automate d white blood cell (WBC) differential - 07/27/19 06:00 Blood leukocytes automated count (number/volume) 5.4 10*3/uL 4.3-11.0 Blood erythrocytes automated count (number/volume) 3.68 10*6/uL 4.35-5.85 Venous blood hemoglobin measurement (mass/volume) 10.8 g/dL 11.5-16.0 Blood hematocrit (volume fraction) 34 % 35-52 Automated erythrocyte mean corpuscular volume 92 [ foz_us] 80-99 Automated erythrocyte mean corpuscular h emoglobin (mass per erythrocyte) 29 pg 25-34 Automated erythrocyte mean corpuscular h emoglobin concentration measurement (mass/volume) 32 g/dL 32-36 Automated erythrocyte distribution width ratio 14. 1 % 10.0- 14.5 Automated blood platelet count (count/volume) 151 10*3/uL 130-400 Automated blood platelet mean volume measurement 10.1 [foz_us] 7.4-10.4 Automated blood neutrophils/100 leukocytes 63 % 42-75 Automated blood lymphocytes/100 leukocytes 22 % 12-44 Blood monocytes/100 leukocytes 9 % 0-12 Automated blood eosinophils/100 leukocytes 6 % 0-10 Automated blood basophils/100 leukocytes 0 % 0-10 Blood neutrophils automated count (number/volume) 3.4 10*3 1.8-7.8 Blood lymphocytes automated count (number/volume) 1.2 10*3 1.0-4.0 Blood monocytes automated count (number/volume) 0. 5 10*3 0.0-1.0 Automated eosinophil count 0.3 10*3/uL 0 .0-0.3 Automated blood basophil count (count/volume) 0.0 10*3/uL 0.0-0.1 Whole blood basic metabolic panel - 07/17 07/05 06:00 Serum or plasma sodium measurement (moles/volume) 140 mmol/L 135-145 Serum or plasma potassium measurement (moles/volume) 4.6 mmol/L 3.6-5.0 Serum or plasma chloride measurement (moles/volume) 105 mmol/L 98-107 Carbon dioxide 27 mmol/L 21-32 Serum or plasma anion gap determination (moles/volume) 8 mmol/L 5-14 Serum or plasma urea nitrogen measurement (mass/volume ) 14 mg/dL 7-18 Serum or plasma creatinine measurement (mass/volume) 1.25 mg/dL 0.60-1.30 Serum or plasma urea nitrogen/creatinine mass ratio 11 NRG Serum or plasma creatinine measurement w ith calculation of estimated glomerular filtration rate 44 NRG Serum or plasma glucose measurement (mass/volume) 188 mg/dL 70-105 Serum or plasma calcium measurement (mass/volume) 9.5 mg/dL 8.5-10.1 Serum or plasma phosphate measurement (m ass/volume) - 07/27/19 06:00 Serum or plasma phosphate measurement (mass/volume) 3.9 mg/dL 2.3-4.7 Magnesium - 07/27/19 06:00 Magnesium 1.5 mg/dL 1.6-2.4 Capillary blood glucose measurement by g lucometer (mass/volume) - 07/27/19 10:09 Capillary blood glucose measurement by glucometer (mas s/volume) 350 mg/dL 70-110 Arterial blood gas measurement - 0 11:07 Blood pCO2 46 mm[Hg] 35-45 Blood pO2 111 mm[Hg] 79-93 Arterial blood bicarbonate measurement (moles/volume) 27 mmol/L 23-27 Arterial blood base excess by calculation 2.9 mmol /L -2.5-2.5 Arterial blood oxygen saturation measurement 99 % 94-100 * Inhaled oxygen flow rate 30% NRG Arterial blood pH measurement with patient temperature correction 7.39 7.37-7.43 Arterial blood carbon dioxide, total measurement (mole s/volume) 28.8 mmol/L 21.0-31.0 Body site RT BRACH NRG Assessment of wrist artery patency prior to arterial p uncture YES-POS NRG Setting of ventilation mode NO NR G Measurement of body temperature 36.8 NRG Capillary blood glucose measurement by g lucometer (mass/volume) - 07/27/19 16:32 Capillary blood glucose measurement by glucometer (mas s/volume) 369 mg/dL 70-110 Capillary blood glucose measurement by g lucometer (mass/volume) - 07/27/19 19:50 Capillary blood glucose measurement by glucometer (mas s/volume) 435 mg/dL 70-110 Complete blood count (CBC) with automate d white blood cell (WBC) differential - 07/28/19 05:15 Blood leukocytes automated count (number/volume) 9.8 10*3/uL 4.3-11.0 Blood erythrocytes automated count (number/volume) 4.05 10*6/uL 4.35-5.85 Venous blood hemoglobin measurement (mass/volume) 11.9 g/dL 11.5-16.0 Blood hematocrit (volume fraction) 36 % 35-52 Automated erythrocyte mean corpuscular volume 89 [ foz_us] 80-99 Automated erythrocyte mean corpuscular h emoglobin (mass per erythrocyte) 29 pg 25-34 Automated erythrocyte mean corpuscular h emoglobin concentration measurement (mass/volume) 33 g/dL 32-36 Automated erythrocyte distribution width ratio 14. 0 % 10.0- 14.5 Automated blood platelet count (count/volume) 202 10*3/uL 130-400 Automated blood platelet mean volume measurement 9.8 [foz_us] 7.4-10.4 Automated blood neutrophils/100 leukocytes 88 % 42-75 Automated blood lymphocytes/100 leukocytes 10 % 12-44 Blood monocytes/100 leukocytes 2 % 0-12 Automated blood eosinophils/100 leukocytes 0 % 0-10 Automated blood basophils/100 leukocytes 0 % 0-10 Blood neutrophils automated count (number/volume) 8.6 10*3 1.8-7.8 Blood lymphocytes automated count (number/volume) 1.0 10*3 1.0-4.0 Blood monocytes automated count (number/volume) 0. 2 10*3 0.0-1.0 Automated eosinophil count 0.0 10*3/uL 0 .0-0.3 Automated blood basophil count (count/volume) 0.0 10*3/uL 0.0-0.1 Comprehensive metabolic panel - 07/28/19 05:15 Serum or plasma sodium measurement (moles/volume) 139 mmol/L 135-145 Serum or plasma potassium measurement (moles/volume) 4.6 mmol/L 3.6-5.0 Serum or plasma chloride measurement (moles/volume) 101 mmol/L 98-107 Carbon dioxide 28 mmol/L 21-32 Serum or plasma anion gap determination (moles/volume) 10 mmol/L 5-14 Serum or plasma urea nitrogen measurement (mass/volume ) 20 mg/dL 7-18 Serum or plasma creatinine measurement (mass/volume) 1.53 mg/dL 0.60-1.30 Serum or plasma urea nitrogen/creatinine mass ratio 13 NRG Serum or plasma creatinine measurement w ith calculation of estimated glomerular filtration rate 35 NRG Serum or plasma glucose measurement (mass/volume) 334 mg/dL 70-105 Serum or plasma calcium measurement (mass/volume) 10.7 mg/dL 8.5-10.1 Serum or plasma total bilirubin measurement (mass/volu me) 0.5 mg/dL 0.1-1.0 Serum or plasma alkaline phosphatase doug surement (enzymatic activity/volume) 51 U/L 40-136 Serum or plasma aspartate aminotransfera se measurement (enzymatic activity/volume) 24 U/L 5-34 Serum or plasma alanine aminotransferase measurement (enzymatic activity/volume) 28 U/L 0-55 Serum or plasma protein measurement (mass/volume) 7.4 g/dL 6.4-8.2 Serum or plasma albumin measurement (mass/volume) 4.1 g/dL 3.2-4.5 CALCIUM CORRECTED 10.6 mg/dL 8.5-10.1 Serum or plasma phosphate measurement (m ass/volume) - 07/28/19 05:15 Serum or plasma phosphate measurement (mass/volume) 3.6 mg/dL 2.3-4.7 Magnesium - 07/28/19 05:15 Magnesium 1.6 mg/dL 1.6-2.4 Capillary blood glucose measurement by g lucometer (mass/volume) - 07/28/19 11:35 Capillary blood glucose measurement by glucometer (mas s/volume) 403 mg/dL 70-110 Capillary blood glucose measurement by g lucometer (mass/volume) - 07/28/19 16:29 Capillary blood glucose measurement by glucometer (mas s/volume) 470 mg/dL 70-110 Capillary blood glucose measurement by g lucometer (mass/volume) - 07/28/19 20:22 Capillary blood glucose measurement by glucometer (mas s/volume) 504 mg/dL 70-110 Complete blood count (CBC) with automate d white blood cell (WBC) differential - 07/29/19 04:30 Blood leukocytes automated count (number/volume) 11.7 10*3/uL 4.3-11.0 Blood erythrocytes automated count (number/volume) 3.59 10*6/uL 4.35-5.85 Venous blood hemoglobin measurement (mass/volume) 10.7 g/dL 11.5-16.0 Blood hematocrit (volume fraction) 32 % 35-52 Automated erythrocyte mean corpuscular volume 90 [ foz_us] 80-99 Automated erythrocyte mean corpuscular h emoglobin (mass per erythrocyte) 30 pg 25-34 Automated erythrocyte mean corpuscular h emoglobin concentration measurement (mass/volume) 33 g/dL 32-36 Automated erythrocyte distribution width ratio 13. 9 % 10.0- 14.5 Automated blood platelet count (count/volume) 215 10*3/uL 130-400 Automated blood platelet mean volume measurement 10.2 [foz_us] 7.4-10.4 Automated blood neutrophils/100 leukocytes 82 % 42-75 Automated blood lymphocytes/100 leukocytes 10 % 12-44 Blood monocytes/100 leukocytes 8 % 0-12 Automated blood eosinophils/100 leukocytes 0 % 0-10 Automated blood basophils/100 leukocytes 0 % 0-10 Blood neutrophils automated count (number/volume) 9.7 10*3 1.8-7.8 Blood lymphocytes automated count (number/volume) 1.1 10*3 1.0-4.0 Blood monocytes automated count (number/volume) 0. 9 10*3 0.0-1.0 Automated eosinophil count 0.0 10*3/uL 0 .0-0.3 Automated blood basophil count (count/volume) 0.0 10*3/uL 0.0-0.1 Comprehensive metabolic panel - 07/29/19 04:30 Serum or plasma sodium measurement (moles/volume) 135 mmol/L 135-145 Serum or plasma potassium measurement (moles/volume) 4.6 mmol/L 3.6-5.0 Serum or plasma chloride measurement (moles/volume) 100 mmol/L 98-107 Carbon dioxide 24 mmol/L 21-32 Serum or plasma anion gap determination (moles/volume) 11 mmol/L 5-14 Serum or plasma urea nitrogen measurement (mass/volume ) 33 mg/dL 7-18 Serum or plasma creatinine measurement (mass/volume) 1.73 mg/dL 0.60-1.30 Serum or plasma urea nitrogen/creatinine mass ratio 19 NRG Serum or plasma creatinine measurement w ith calculation of estimated glomerular filtration rate 30 NRG Serum or plasma glucose measurement (mass/volume) 450 mg/dL 70-105 Serum or plasma calcium measurement (mass/volume) 9.9 mg/dL 8.5-10.1 Serum or plasma total bilirubin measurement (mass/volu me) 0.2 mg/dL 0.1-1.0 Serum or plasma alkaline phosphatase doug surement (enzymatic activity/volume) 48 U/L 40-136 Serum or plasma aspartate aminotransfera se measurement (enzymatic activity/volume) 15 U/L 5-34 Serum or plasma alanine aminotransferase measurement (enzymatic activity/volume) 28 U/L 0-55 Serum or plasma protein measurement (mass/volume) 6.5 g/dL 6.4-8.2 Serum or plasma albumin measurement (mass/volume) 3.7 g/dL 3.2-4.5 CALCIUM CORRECTED 10.1 mg/dL 8.5-10.1 Capillary blood glucose measurement by g lucometer (mass/volume) - 07/29/19 05:10 Capillary blood glucose measurement by glucometer (mas s/volume) 435 mg/dL 70-110 Capillary blood glucose measurement by g lucometer (mass/volume) - 07/29/19 10:49 Capillary blood glucose measurement by glucometer (mas s/volume) 489 mg/dL 70-110 Encounters ACCT No. Visit Date/Time Discharge Status Pt. Type Provider Facility Loc./Unit Complaint [id number] 11/03/2019 07:50:00 23:59:59 CLS Outpatient KYLIE TAYLOR MD [facility] CARD HTN [id number] 11/01/2019 13:24:00 23:59:59 CLS Outpatient STEF REDDING MD [facility] WOUNDCARE [id number] 10/21/2019 09:10:00 23:59:59 CLS Outpatient SALOME STEVE [facility] ONC [id number] 06/14/2019 08:41:00 14:06:00 DIS Outpatient SALOME STEVE [facility] ONC [id number] 08/05/2019 10:39:00 23:59:59 CLS Outpatient KRISTI MARI MD [facility] WOUNDCARE [id number] 07/23/2019 14:48:00 17:14:00 DIS Inpatient MAIK AMAYA DO, [facility] 4TH ODONTOGENIC SUBMANDIBUL AR CELLULITIS [id number] 07/15/2019 14:39:00 23:59:59 CLS Preadmit KAVON WESTON [facility] CARD CHF,IDDM,HTN,O SA [id number] 07/09/2019 09:57:00 23:59:59 CLS Outpatient CODEY LOZANO MD [facility] RAD SCREENING [id number] 06/22/2019 21:00:00 23:59:59 CLS Preadmit MANAV GOTTI APRN [facility] SLEEP IVET [id number] 04/29/2019 15:03:00 00:01:00 DIS Outpatient SALOME STEVE [facility] ONC [id number] 04/16/2019 08:03:00 23:59:59 CLS Outpatient MANAV GOTTI APRN [facility] RAD EMPHYSEMA LUNG, TOBACCO ABUSE,SOB,IVET [id number] 12/30/2018 14:39:00 23:59:59 CLS Outpatient KAYCEE HASSAN [employer] [facility] RAD ABN BONE SCAN [id number] 12/21/2018 10:05:00 00:01:00 DIS Outpatient SALOME STEVE [facility] ONC [id number] 12/21/2018 10:33:00 23:59:59 CLS Outpatient KAYCEE HASSAN [employer] [facility] CARD TUBULAR ADENOM A OF COLON [id number] 10/28/2018 08:48:00 23:59:59 CLS Preadmit MANAV GOTTI APRN [facility] SLEEP IVET G47.33 [id number] 10/21/2018 11:40:00 15:00:00 DIS Outpatient LILIAN TREJO DO [facility] RT SOB ON EXERTION [id number] 09/08/2018 11:19:00 23:59:59 CLS Preadmit LILIAN TREJO DO [facility] RAD SOB ON EXERTION [id number] 09/08/2018 11:17:00 23:59:59 CLS Outpatient LILIAN TREJO DO [facility] SLEEP SLEEP DISORDER [id number] 09/08/2018 11:12:00 23:59:59 CLS Preadmit LILIAN TREJO DO [facility] RT SOB ON EXERTION [id number] 08/06/2018 10:00:00 14:15:00 DIS Inpatient LILLY LEE DO [facility] 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 [id number] 07/30/2018 08:39:00 09:30:00 DIS Outpatient LILLY LEE DO [facility] PREOP SERRATED ADENOMA OF COL ON [id number] 06/29/2018 14:29:00 00:01:00 DIS Outpatient SALOME STEVE [facility] ONC [id number] 07/01/2018 07:45:00 23:59:59 CLS Outpatient LILLY LEE DO [facility] RAD IRON DEFICIENCY ANEMIA [id number] 06/30/2018 09:47:00 23:59:59 CLS Outpatient TAMRA MEAD APRN [facility] RAD SCREENING [id number] 06/02/2018 08:56:00 12:25:00 DIS Outpatient LILLY LEE DO [facility] ENDO ANEMIA [id number] 05/27/2018 09:30:00 10:19:00 DIS Outpatient LEE LILLY BIRD [facility] PREOP COLONOSCOPY/EGD [id number] 05/13/2018 09:26:00 23:59:59 CLS Preadmit KYLIE TAYLOR MD [facility] CARD CHF,CAD,HTN,HYPERLIPIDE PEBBLES [id number] 02/17/2018 13:15:00 09/30/2 018 00:01:00 DIS Outpatient POWER SALOME Miles [facility] ONC [id number] 12/22/2017 09:30:00 018 00:01:00 DIS Outpatient THEODORA ANGELES MD, [facility] ONC [id number] 09/18/2017 10:32:00 018 15:56:00 DIS Outpatient POWER SALOME Grady [facility] ONC [id number] 09/18/2017 10:56:00 018 23:59:59 CLS Outpatient POWER SALOME Miles [facility] RAD CA OF LUNG C34.12 [id number] 08/06/2017 12:00:00 018 23:59:59 CLS Preadmit KAVON WESTON [facility] CARD I50.9 [id number] 07/15/2017 08:16:00 018 09:50:00 DIS Inpatient HUNTER FUENTES MD [facility] 4TH PNEUMONIA [id number] 05/21/2017 14:13:00 018 00:01:00 DIS Outpatient POWER SALOME Miles [facility] ONC [id number] 06/12/2017 13:16:00 017 23:59:59 CLS Outpatient MADLMARILYNA L [employer] [facility] RAD Z12.31 SCREENING BREAST EXAMINATION [id number] 06/06/2017 10:19:00 017 23:59:59 CLS Outpatient MADL, ROBERTO L [employer] [facility] RAD PAIN OF UPPER ABD [id number] 04/03/2017 09:42:00 017 23:59:59 CLS Outpatient KAYCEE HASSAN [employer] [facility] RAD CANCER OF LUNG C34.12 [id number] 03/26/2017 13:00:00 017 23:59:59 CLS Preadmit KAVON WESTON [facility] CARD CAD I25.10 [id number] 02/20/2017 13:18:00 017 00:01:00 DIS Outpatient POWER SALOME Miles [facility] ONC [id number] 09/26/2016 10:56:00 017 00:01:00 DIS Outpatient SALOME STEVE [facility] ONC [id number] 09/17/2016 10:36:00 017 23:59:59 CLS Outpatient KAYCEE HASSANP [facility] RAD CANCER OF LUNG [id number] 07/04/2016 10:21:00 017 14:05:00 DIS Outpatient LILLY LEE DO [facility] SDC CYST ON CHEST WALL [id number] 07/03/2016 05:36:00 017 09:24:00 DIS Outpatient LEE LILLY BIRD [facility] PREOP CYST ON CHEST WALL [id number] 06/25/2016 10:48:00 017 00:01:00 DIS Outpatient SALOME STEVE V [facility] ONC [id number] 05/28/2016 13:08:00 016 23:59:59 CLS Outpatient ROBERTO CLANCYP [facility] RAD SCREENING BREAST CA [id number] 05/16/2016 11:35:00 016 23:59:59 CLS Outpatient STEF MAI MD [facility] RAD T4 SQUAM CELL CA OF EP [id number] 04/05/2016 12:21:00 016 23:59:59 CLS Outpatient KAYCEE HASSANP [facility] CARD PAIN IN LT HIP, CANCER LUNG [id number] 04/05/2016 12:21:00 016 23:59:59 CLS Outpatient ANAIS ANGULO MD [facility] RAD Z96.1 [id number] 02/14/2016 12:57:00 16:05:00 DIS Outpatient SALOME STEVE [facility] ONC [id number] 03/15/2016 13:57:00 016 20:00:00 DIS Emergency ETHAN RODRIGES APRN [facility] ER ACROSS ABD PAIN [id number] 03/11/2016 15:00:00 23:59:59 CLS Preadmit LILIAN TREJO DO [facility] PULM LUNG CANCER,CANCER EPIG LOTTIS [id number] 12/21/2015 09:00:00 00:01:00 DIS Outpatient LILIAN TREJO DO [facility] PUL LUNG CANCER,CANCER EPIG LOTTIS [id number] 01/03/2016 10:57:00 00:01:00 DIS Outpatient SALOME STEVE [facility] ONC [id number] 01/01/2016 10:26:00 016 23:59:59 CLS Outpatient SALOME STEVE [facility] RAD SQUAMOUS CELL CANCER OF EPIGLOTTIS [id number] 11/22/2015 11:47:00 23:59:59 CLS Outpatient LILIAN TREJO DO [facility] RT CANCER OF LUNG,CANCER E PIGLOTTIS [id number] 11/09/2015 06:09:00 016 11:45:00 DIS Outpatient LILLY LEE DO [facility] SDC SKIN LESIONS [id number] 11/02/2015 14:09:00 14:45:00 DIS Outpatient LILLY LEE DO [facility] PREOP SKIN LESIONS [id number] 10/09/2015 12:33:00 23:59:59 CLS Preadmit KAYCEE HASSAN [facility] ONC [id number] 08/31/2015 15:11:00 23:59:59 CLS Outpatient SALOME STEVE [facility] ONC [id number] 07/11/2015 07:41:00 016 12:15:00 DIS Outpatient LILLY LEE DO [facility] SDC SCREENING [id number] 07/06/2015 05:42:00 016 23:59:59 CLS Outpatient LILLY LEE DO D [facility] PREOP SCREENING [id number] 06/05/2015 12:42:00 016 00:01:00 DIS Outpatient SALOME STEVE [facility] ONC [id number] 06/05/2015 13:22:00 23:59:59 CLS Outpatient KAYCEE HASSAN [employer] [facility] RAD SQUAMOUS CELL C A OF EPIGLOTTIS [id number] 03/23/2015 09:01:00 015 23:59:59 CLS Outpatient KAYCEE HASSAN [employer] [facility] RAD RUQ PAIN,SCREEN ING [id number] 03/20/2015 12:59:00 015 23:59:59 CLS Outpatient KAYCEE HASSAN [employer] [facility] ONC [id number] 03/03/2015 14:01:00 015 00:01:00 DIS Outpatient SALOME STEVE [facility] ONC [id number] 03/06/2015 13:38:00 015 23:59:59 CLS Outpatient KAYCEE HASSAN [employer] [facility] RAD LUNG CA [id number] 11/22/2014 11:10:00 015 00:01:00 DIS Outpatient SALOME STEVE [facility] ONC [id number] 12/12/2014 08:26:00 015 23:59:59 CLS Outpatient CLAUDIA CUTLER, KYLIE Dawson [facility] LAB CAD,CHF,HTN,IDDM [id number] 12/12/2014 08:17:00 015 23:59:59 CLS Outpatient SALOME STVEE [facility] RAD LUNG NODULE [id number] 10/06/2014 11:15:00 23:59:59 CLS Outpatient DARIAN JESSICA MD [facility] HH EDEMA LEGS/FEET,CAD,L THORACOTOMY,LUNG CA [id number] 07/19/2014 08:58:00 23:59:59 CLS Outpatient KAYCEE HASSAN [employer] [facility] RAD CA OF TONGUE, L FELI NODULE [id number] 07/11/2014 13:49:00 015 23:59:59 CLS Outpatient KAYCEE HASSAN [employer] [facility] ONC [id number] 07/11/2014 13:29:00 015 23:59:59 CLS Outpatient SALOME STEVE [facility] ONC [id number] 05/04/2014 13:30:00 23:59:59 CLS Outpatient KAYCEE HASSAN [employer] [facility] ONC [id number] 05/04/2014 10:12:00 23:59:59 CLS Outpatient CLAUDIA CUTLER, KYLIE Dawson [facility] CARD CAD,HTN,HLP, [id number] 04/29/2014 07:59:00 12:25:00 DIS Outpatient STEF MAI MD [facility] SDC ABNORMAL MASS [id number] 04/14/2014 10:52:00 23:59:59 CLS Outpatient STEF MAI MD [facility] PREOP ABNORMAL MASS [id number] 04/08/2014 10:46:00 00:01:00 DIS Outpatient SALOME STEVE [facility] ONC [id number] 04/05/2014 08:12:00 23:59:59 CLS Outpatient KAYCEE HASSAN [employer] [facility] RAD SQUAMOUS CELL [id number] 03/28/2014 09:23:00 23:59:59 CLS Outpatient HASSANKAYCEE Marinelli S [employer] [facility] ONC [id number] 03/24/2014 10:46:00 23:59:59 CLS Outpatient POWER, SALOME Miles [facility] RAD CA OF EPIGLOTTIS [id number] 02/28/2014 10:10:00 23:59:59 CLS Outpatient HASSANKAYCEE Marinelli S [employer] [facility] ONC [id number] 02/16/2014 10:47:00 23:59:59 CLS Outpatient ZAK BUCIO P [facility] LAB [id number] 02/16/2014 10:05:00 23:59:59 CLS Outpatient KAYCEE HASSAN S [employer] [facility] ONC [id number] 01/06/2014 09:32:00 23:59:59 CLS Outpatient SALOME STEVE [facility] RAD SQUAMOU CELL [id number] 12/16/2013 09:47:00 00:01:00 DIS Outpatient SALOME STEVE V [facility] ONC [id number] 11/26/2013 09:23:00 014 23:59:59 CLS Outpatient TONJA HASSANAH S [employer] [facility] ONC [id number] 11/19/2013 09:47:00 014 23:59:59 CLS Outpatient TONJA HASSANAH S [employer] [facility] ONC [id number] 11/11/2013 10:04:00 014 23:59:59 CLS Outpatient HASSAN, HILAH S [employer] [facility] ONC [id number] 11/02/2013 09:36:00 23:59:59 CLS Outpatient HASSAN, HILAH S [employer] [facility] ONC [id number] 10/12/2013 09:17:00 23:59:59 CLS Outpatient KAYCEE HASSAN [facility] ONC [id number] 10/11/2013 10:19:00 16:30:00 DIS Outpatient LILLY LEE DO [facility] SDC SQUAMOUS CELL CARCINOMA EPIGLOTTIS [id number] 10/07/2013 07:25:00 23:59:59 CLS Outpatient LILLY LEE DO [facility] PREOP SQUAMOUS CELL CARCINOMA EPIGLOTTIS [id number] 10/05/2013 10:27:00 23:59:59 CLS Outpatient MAGAN SU MD [facility] RAD SQUAMOUS CELL CA [id number] 09/13/2013 13:40:00 23:59:59 CLS Outpatient JAMES CUTLER, ALBA Zamora [facility] CARD CAD,HTN [id number] 09/01/2013 08:02:00 23:59:59 CLS Outpatient STEF MAI MD [facility] RAD DSYPHAGIA,MASS [id number] 08/30/2013 12:07:00 23:59:59 CLS Outpatient STEF MAI MD [facility] LAB HOARSENESS,FATIGUE,THRY OID ENLARMENT [id number] 08/25/2013 10:07:00 23:59:59 CLS Outpatient NALINI JOHNS DO [facility] RAD DYSPHAGIA [id number] 02/04/2013 13:01:00 16:20:00 DIS Emergency [id number] 11/10/2019 06:48:[address] Outpatient CLAUDIA CUTLER, KYLIE Dawson [facility] CATH ABN FATOUMATA,PVD [id number] 09/09/2014 12:51:00 Document Registration
[2019-11-10] MEDS: NS IV 1000 ML 1,000 ML IV SCH ×2 (07:32→10:26)
[2019-11-10 07:34] LABS: BILIRUBIN,URINE NEGATIVE (NEGATIVE); CLARITY,URINE CLEAR; COLOR,URINE YELLOW; GLUCOSE, URINE (UA) NEGATIVE (NEGATIVE); KETONES,URINE NEGATIVE (NEGATIVE); LEUKOCYTE ESTERASE ,URINE TRACE (NEGATIVE); NITRITE,URINE NEGATIVE (NEGATIVE); PH,URINE 5.5 (5-9); PROTEIN,URINE TRACE (NEGATIVE)
[2019-11-10 07:35] LABS: HEMOGLOBIN 13.8 G/DL (11.5-16.0); MEAN PLATELET VOLUME 10.3 FL (7.4-10.4); RED CELL DISTRIBUTION WIDTH 14.3 % (10.0-14.5); WHITE BLOOD COUNT 7.8 10^3/uL (4.3-11.0)
--- NOTE | 2019-11-10 07:36 | Diagnostic Imaging Report ---
Indication: Coronary artery disease Portable chest 7:27 AM There are postoperative changes from CABG surgery. There is left perihilar atelectasis. Left subclavian central line tip appears to be at the innominate confluence. There are no effusions or pneumothoraces. Heart size and pulmonary vascularity are normal. IMPRESSION: Postsurgical changes in the chest. No acute abnormality seen Dictated by: Dictated on workstation # [id number]
[2019-11-10 07:42] LABS: BACTERIA,URINE TRACE /HPF; RBC,URINE 0-2 /HPF; SQUAMOUS EPITHELIAL CELL,UR 0-2 /HPF; WBC,URINE 25-50 /HPF
[2019-11-10 07:47] LABS: INR 0.9 (0.8-1.4); PROTHROMBIN TIME PATIENT 12.9 SEC (12.2-14.7)
[2019-11-10 07:53] LABS: ALBUMIN 4.2 GM/DL (3.2-4.5); BILIRUBIN,TOTAL 0.5 MG/DL (0.1-1.0); CREATININE SERUM 1.68 MG/DL (0.60-1.30); POTASSIUM 4.4 MMOL/L (3.6-5.0); TOTAL PROTEIN 7.8 GM/DL (6.4-8.2)
[2019-11-10] MEDS ORDERED: POTA10CA43 PO (07:59)
[2019-11-10] MEDS ORDERED: OLOD4MIS2 IH (07:59)
[2019-11-10] MEDS ORDERED: doxycycline (07:59)
[2019-11-10] MEDS ORDERED: MIDAZOLAM 5 MG/5 ML (VERSED) VIAL ONE ×2 (09:43→10:14)
[2019-11-10] MEDS ORDERED: fentaNYL INJECTION 100 MCG/2 ML AMP ONE ×2 (09:43→10:50)
--- NOTE | 2019-11-10 09:52 | Cardiac Procedure Note-CS/ASA ---
Pre-Procedure Note Pre-Op Procedure Note H&P Reviewed The H&P was reviewed, patient examined and no changes noted. Date H&P Reviewed: November 10, 2019 Time H&P Reviewed: 09:52 Conscious Sedation Pre-Proced Time 09:52 ASA Score 3 For ASA 3 and 4: Consider anesthesia and medical clearance. Also, for patients with a history of failed moderate sedation consider anesthesia. Airway Lungs Heart ASA score ASA 1: a normal healthy patient ASA 2: a patient with a mild systemic disease (mid diabetes, controlled hypertension, obesity ASA 3: a patient with a severe systemic disease that limits activity (angina, COPD, prior Myocardial infarction) ASA 4: a patient with an incapacitating disease that is a constant threat to life (CHF, renal failure) ASA 5: a moribund patient not expected to survive 24 hrs. (ruptured aneurysm) ASA 6: a declared brain- patient whose organs are being harvested. For emergent operations, add the letter E after the classification Mallampati Classification Grade 3 Sedation Plan Analgesia, Amnesia, Plan communicated to team members, Discussed options with patient/fam, Discussed risks with patient/fam The patient is an appropriate candidate to undergo the planned procedure, sedation, and anesthesia. The patient immediately re-assessed prior to indication. KYLIE TAYLOR MD November 10, 2019 09:52
[2019-11-10] MEDS ORDERED: NITRO DRIP 25000 MCG/D5W 250 ML IV ONE (10:36)
[2019-11-10] MEDS ORDERED: HEParin 1000 UNIT/ML (10ML VIAL) FOR BOLUS ONE (10:48)
[2019-11-10] MEDS ORDERED: NS IV 1000 ML 1,000 ML IV SCH (11:12)
[2019-11-10] MEDS ORDERED: PATIENT MAY USE OWN MEDS, ALL PO SCH (11:15)
--- NOTE | 2019-11-10 11:16 | Discharge Inst-Post CATH ---
Discharge Inst-CATH/EP Problems Reviewed?: Yes Post Cardiac Cath/EP D/C Inst Follow Up/Plan Appointment with Dr. Gonzalez's office in 2-4 weeks <b>CARDIAC CATH/EP PROCEDURE DISCHARGE INSTRUCTIONS</b> ACTIVITY * Go Home directly and rest. * Limit activity of the leg (or wrist if it was used) for 7 days including aerobics, swimming, jogging, bicycling, etc. * Restrict stair-climbing for 7 days if possible, if not, climb up with your non-cath leg, then bring together on the same step. * Avoid lifting, pushing, pulling or excessive movement of the affected extremity for 7 days. * Customary sexual activity may be resumed after 2 days-use caution not to use a position that strains or causes pain to the affected extremity. * No driving for 24 hours. * NO SMOKING. * Avoid straining for bowel movements for 7 days. * Gentle walking on level ground is allowed. * Returning to work will depend on the type of procedure and the results. Your doctor will discuss this with you. CALL YOUR DOCTOR FOR ANY OF THE FOLLOWING: *If bleeding from the puncture site occurs- Apply gentle pressure to site with clean cloth and call your doctor or EMS. * If a knot or lump forms under the skin, increases in size, or causes pain. * If bruising appears to be worsening or moving further down your leg instead of disappearing. * Temperature above 101 F. CARE OF YOUR GROIN INCISION; * Bruising or purple discoloration of the skin near the puncture site is common. * You may shower only, no bathtub bathing for 5 days. Be careful to avoid slipping as your leg may feel stiff. * If a closure device was used on your femoral artery, please see the attached guide regarding care of the device and your leg. * Leave dressing on FOR 24 hours. CARE OF YOUR WRIST INCISION; * Bruising or purple discoloration of the skin near the puncture site is common. * You may shower. * DO NOT submerge wrist. * Leave dressing on FOR 24 hours. KYLIE GONZALEZ MD November 10, 2019 11:16
--- NOTE | 2019-11-10 11:39 | Cardiac Cath Report ---
Cardiac Cath Report Physician (s)/Ophthalmology Technician (s) Physician KYLIE TAYLOR MD Pre-Procedure Diagnosis Pre-Procedure Diagnosis: Nonhealing foot ulcer, coronary artery disease Post-Procedure Note Procedure Start Date: November 10, 2019 Name of Procedure: Left heart catheterization Vein graft angiogram HADLEY angiogram Bilateral lower extremity angiogram Third order Additional imaging X2 Findings/Procedure Note PROCEDURE NOTE: 59-year-old lady with history of coronary artery disease, history of CABG, had abnormal stress test with anterior lateral ischemia, had nonhealing foot ulcer, abnormal FATOUMATA, scheduled for coronary angiogram and peripheral runoff. After explaining the procedure to the patient, all pros and cons were explained, all questions were answered. The patient signed the consent and then she was placed on the cardiac catheterization laboratory. Groin was prepped SL fashion local anesthesia was used. Sheath placed in the artery. Kirill right and left catheter were used to access the coronary system.Vein Graft evaluated. HADLEY evaluated. Pigtail was used to access the left ventricular cavity. Pressure was measured, pullback LV to aorta was done, no left ventriculogram was done. HADLEY was used to crossover runoff at the iliac level was done then the catheter was exchanged over long wire into a long straight wire placed in the proximal right common femoral artery and runoff was done then over a stork wire was advanced to the popliteal artery DSA angiogram was done to evaluate the trifurcation, second imaging was done at the foot level at that point I measured the pressure at the popliteal artery flushed the catheter pulled back to the mid SFA and measured pressure pulled back to the proximal SFA and measuring the pressure down to the common iliac artery and major depression. The left leg angiogram was done through the sheath At the end of the procedure the sheath was removed. Closure device was used FINDINGS: Hemodynamics LV 112/8, end-diastolic pressure of 8 Aorta 119/51 mean of 78 Popliteal pressure 86/57/67 Mid SFA 110/57/79 Proximal SFA 127/60/90 Right common iliac artery 108/48/75 ANATOMY: Left Main has severe stenosis Left Anterior Descending is occluded proximally, HADLEY to LAD is patent Left Circumflex is occluded proximally, vein graft to OM 2 is patent vein graft to OM1 is occluded Right Coronory Artery is dominant artery with severe diffuse disease, vein graft to the right PDA has ectasia but is patent HADLEY to LAD is patent, small to moderate size Vein Graft evaluation showed clips of 3 vein grafts Vein graft to the first obtuse marginal branch was not visualized probably occluded Vein graft to the second obtuse marginal branch is large and patent with good flow in the circumflex system Vein graft to the right PDA has diffuse ectasia with small vessel disease and slow flow but is patent LV Gram was not done, pressure was measured Angiogram to the right leg was done at multiple level: Large right common iliac aneurysm was noted, followed by mild to moderate disease in the iliac artery, the right SFA has moderate to severe stenosis diffusely. No distinct severe lesion. Overall there was 40 mm gradient in systolic pressure between the proximal and distal SFA, the anterior tibial artery is occluded tapering down very small artery and there are no reconstructed artery by collaterals, the posterior tibial and peroneal arteries are patent Angiogram to the left leg was done through the sheath: There is moderate diffuse disease at the left SFA, the anterior tibial has diffuse disease, posterior tibial has moderate disease and peroneal artery has moderate CONCLUSION: 1. Severe [place] coronary artery disease with patent HADLEY to LAD, patent large vein graft to second obtuse marginal branch filling the circumflex system, occluded vein graft to the first obtuse marginal branch and diffuse ectasia in the vein graft to the right PDA with slow flow due to small vessel disease 2. Normal left ventricular end-diastolic pressure 3. Moderate to large size right common iliac artery aneurysm 4. Moderate diffuse disease in the right SFA with pressure gradient of 40 mmHg between the proximal and distal portion 5. Occluded right anterior tibial artery that is not receiving sufficient collaterals, very small artery 6. Diffuse disease at the left SFA and left anterior and posterior tibial arteries DISCUSSION AND RECOMMENDATION: Maximizing medical therapy and referral to vascular surgery for evaluation Anesthesia Type: Conscious Sedation Estimated blood loss (mL): 35 ml Contrast Amount: 84 ml Total Radiation Dose: 701 mGy Post-Procedure Diagnosis Post-operative diagnosis: Ischemic foot ulcer Peripheral arterial disease Coronary artery disease Hypertension Hyperlipidemia KYLIE TAYLOR MD November 10, 2019 11:39
--- NOTE | 2019-11-10 15:10 | NUR ---
WENT OVER DISCHARGE INSTRUCTIONS WITH THE PATIENT. PATIENT HAS AN APPOINTMENT WITH DR. JESSICA ON NOVEMBER 15 AT 2.00 PM. 1528: REPORT TO Angelic WONG RN
== END 2019-11-10 16:20 | disposition home or self-care (01) ==
LOC: CATH 06:48 → SDC 11:34 → CATH 16:20
PROVIDERS: ATTEND Internal Medicine Cardiovascular Disease
DX: E11.621 Type 2 diabetes mellitus with foot ulcer (principal); I77.1 Stricture of artery; I48.0 Paroxysmal atrial fibrillation; I13.0 Hypertensive heart and chronic kidney disease with heart failure and stage 1 through stage 4 chronic kidney disease, or unspecified chronic kidney disease; I50.22 Chronic systolic (congestive) heart failure; I25.10 Atherosclerotic heart disease of native coronary artery without angina pectoris; I72.8 Aneurysm of other specified arteries; I77.89 Other specified disorders of arteries and arterioles; E78.5 Hyperlipidemia, unspecified; E11.42 Type 2 diabetes mellitus with diabetic polyneuropathy; E11.22 Type 2 diabetes mellitus with diabetic chronic kidney disease; E83.42 Hypomagnesemia; G47.36 Sleep related hypoventilation in conditions classified elsewhere; J43.9 Emphysema, unspecified; G47.33 Obstructive sleep apnea (adult) (pediatric); N18.3 Chronic kidney disease, stage 3 (moderate); Z87.891 Personal history of nicotine dependence; Z95.1 Presence of aortocoronary bypass graft; Z85.818 Personal history of malignant neoplasm of other sites of lip, oral cavity, and pharynx; Z85.118 Personal history of other malignant neoplasm of bronchus and lung; Z88.8 Allergy status to other drugs, medicaments and biological substances; Z79.01 Long term (current) use of anticoagulants; Z92.3 Personal history of irradiation; Z92.21 Personal history of antineoplastic chemotherapy; Z79.4 Long term (current) use of insulin
CPT/HCPCS: 36248; 36415; 71045; 75716; 80053; 80061; 81000; 85027; 85610; 85730; 87081; 87088; 93459

== ENCOUNTER 2019-11-14 09:09 | Observation (INO) | payer MEDICARE ==
[~2019-11-14] VITALS: Ht 175 cm; Wt 98.0 kg
[2019-11-14] VITALS (11 sets, daily range): BP systolic 134–198; BP diastolic 73–100
[~2019-11-14 09:09] MED LIST changes: +OLOD4MIS2 IH; +POTA10CA43 PO; +doxycycline
[2019-11-14 09:51] LABS: BASOPHILS % (AUTO) 0 % (0-10); EOSINOPHILS # (AUTO) 0.2 10^3/uL (0.0-0.3); EOSINOPHILS % (AUTO) 2 % (0-10); HEMATOCRIT 39 % (35-52); LYMPHOCYTES % (AUTO) 9 % (12-44); MEAN CORPUSCULAR HEMOGLOBIN 29 PG (25-34); MEAN CORPUSCULAR HGB CONC 33 G/DL (32-36); MEAN CORPUSCULAR VOLUME 87 FL (80-99); MEAN PLATELET VOLUME 9.9 FL (7.4-10.4); MONOCYTES # (AUTO) 0.7 X 10^3 (0.0-1.0); MONOCYTES % (AUTO) 7 % (0-12); NEUTROPHILS # (AUTO) 8.7 X 10^3 (1.8-7.8); NEUTROPHILS % (AUTO) 83 % (42-75); PLATELET COUNT 165 10^3/uL (130-400); RED CELL DISTRIBUTION WIDTH 14.2 % (10.0-14.5); WHITE BLOOD COUNT 10.5 10^3/uL (4.3-11.0)
[2019-11-14 10:01] LABS: POTASSIUM 4.4 MMOL/L (3.6-5.0)
[2019-11-14 10:02] LABS: CALCIUM 9.9 MG/DL (8.5-10.1)
[2019-11-14 10:04] LABS: TOTAL PROTEIN 7.3 GM/DL (6.4-8.2)
[2019-11-14 10:06] LABS: BILIRUBIN,TOTAL 0.7 MG/DL (0.1-1.0)
[2019-11-14 10:07] LABS: CREATININE SERUM 1.56 MG/DL (0.60-1.30)
--- NOTE | 2019-11-14 10:47 | Diagnostic Imaging Report ---
PROCEDURE: CT neck soft tissue without contrast. TECHNIQUE: Multiple contiguous axial images were obtained through the neck without the use of intravenous contrast. Auto Exposure Controls were utilized during the CT exam to meet ALARA standards for radiation dose reduction. INDICATION: Throat pain and difficulty swallowing COMPARISON: 07/23/2019 FINDINGS: The muscles of mastication are unremarkable. Atrophy and fatty infiltration of the bilateral submandibular glands is again identified. Fat stranding about the submandibular glands and associated with the chin appear improved since the prior examination. The fossa of Rosenmuller are symmetric. Parapharyngeal fat is symmetric. Significant thickening of the epiglottis and aryepiglottic folds is again noted. Masslike thickening and distortion within the glottic and subglottic location appears similar to the prior examination. Resulting narrowing of the airway at this location is again identified, though stable from the prior exam. No new adenopathy. No new focal fluid collection. Left-sided Port-A-Cath is in place. Emphysematous changes within the upper lungs without apical pneumothorax. CABG. Scattered osseous degenerative changes, including severe degenerative changes at the C6/C7 level. There is resulting multilevel central canal stenosis, particularly at C5/C6 and C6/C7 with additional high-grade bilateral neural foraminal stenosis also noted at these levels. The visualized paranasal sinuses are clear. No temporomandibular joint dislocation. The patient is edentulous. IMPRESSION: Persistent masslike fullness and distortion associated with the glottic and infraglottic location, appearing stable from the prior exam. Improved inflammatory stranding associated with the neck, particularly about the submandibular gland. This likely relates to improving postradiation changes. No new focal fluid collection. No new or increasing adenopathy. Advanced degenerative changes within osseous structures with resulting relatively high-grade central canal and neural foraminal stenosis, particularly at C5/C6 and C6/C7. Dictated by: Dictated on workstation # [id number]
[2019-11-14] MEDS ORDERED: fentaNYL INJECTION 100 MCG/2 ML AMP IVP ONE (11:45)
[2019-11-14] MEDS ORDERED: OXYMETAZOLINE (AFRIN) 0.05% NA 30 ML BTL ONE (12:26)
--- NOTE | 2019-11-14 12:28 | NUR ---
ALEX WITH DR [facility] HERE TO SEE PT
--- NOTE | 2019-11-14 13:12 | ED EENT ---
History of Present Illness General Chief Complaint: Oral/Throat Problems Stated Complaint: SORE THROAT Nursing Triage Note: PT PRESENTS TO ED WITH COMPLAINTS OF THROAT PAIN AND DIFFICULTY SWALLOWING STARTING LAST NIGHT. Source: patient, old records Exam Limitations: no limitations History of Present Illness Date Seen by Provider: November 14, 2019 Time Seen by Provider: 09:19 Initial Comments This 59-year-old woman presents to the emergency room with complaints of sore throat, difficulty breathing, difficulty swallowing. She is spitting out phlegm and saliva. She has history of throat cancer with radiation and chemotherapy. She has history of airway thickening on CT scan performed previously. She denies any fevers or other acute illnesses. She has no new cough. Allergies and Home Medications Allergies Coded Allergies: enalaprilat (Verified Allergy, Severe, anaphylactic, 08/06/18) codeine (Unverified Allergy, Mild, GI UPSET, 08/06/18) haloperidol (Unverified Allergy, Mild, NAUSEA, 08/06/18) Home Medications Alprazolam 0.25 Mg Tablet, 0.25 MG PO DAILY PRN for ANXIETY, (Reported) Apixaban 5 Mg Tablet, 5 MG PO BID, (Reported) Atorvastatin Calcium 80 Mg Tablet, 40 MG PO HS, (Reported) Dronedarone HCl 400 Mg Tablet, 400 MG PO BID, (Reported) Ferrous Sulfate 325 Mg Tablet, 325 MG PO DAILY, (Reported) Fluconazole 100 Mg Tablet, 100 MG PO DAILY@0800 Prescribed by: MAIK AMAYA on 07/29/19 1116 Furosemide 40 Mg Tablet, 40 MG PO DAILY PRN for SWELLING Prescribed by: MAIK AMAYA on 07/29/19 1155 Insulin Determir 1,000 Units/10 Ml Soln, 45 UNITS SQ BID Resume regular dosing on 08/02/19 Prescribed by: MAIK AMAYA on 07/29/19 1155 Insulin Lispro 100 Unit/1 Ml Insuln.pen, 25 UNIT SQ TIDAC Return back to usual dose on 08/02/19 Prescribed by: MAIK AMAYA on 07/29/19 1155 Ipratropium/Albuterol Sulfate 3 Ml Ampul.neb, 3 ML INH RTQ6HR Prescribed by: MAIK AMAYA on 07/29/19 1116 Levothyroxine Sodium 88 Mcg Tablet, 88 MCG PO DAILY, (Reported) Losartan Potassium 100 Mg Tablet, 100 MG PO DAILY Prescribed by: MAIK AMAYA on 07/29/19 1116 Metoprolol Tartrate 25 Mg Tablet, 25 MG PO BID, (Reported) Montelukast Sodium 10 Mg Tablet, 10 MG PO HS, (Reported) Olodaterol HCl 4 Gm Mist.inhal, 4 GM IH BID, (Reported) [place]-3 Fatty Acids/Fish Oil 1 Each Capsule, 2,400 MG PO DAILY, (Reported) TAKES 2 (1200MG) CAPSULES Omeprazole 20 Mg Capsule.dr, 20 MG PO DAILY, (Reported) Potassium Chloride 10 Meq Capsule.er, 10 MEQ PO DAILY PRN, (Reported) [doxycycline] , 20 MG BID, (Reported) Patient Home Medication List Home Medication List Reviewed: Yes Review of Systems Review of Systems Constitutional: no symptoms reported Eyes: No Symptoms Reported Ears: No Symptoms Reported Nose: no symptoms reported Mouth: no symptoms reported Throat: see HPI Respiratory: see HPI Cardiovascular: no symptoms reported Gastrointestinal: see HPI Musculoskeletal: no symptoms reported Skin: no symptoms reported Neurological: No Symptoms Reported Hematologic/Lymphatic: No Symptoms Reported Immunological/Allergic: no symptoms reported Past Xntzsqx-Ciqndu-Qlzvph Hx Past Med/Social Hx: Reviewed Nursing Past Med/Soc Hx Patient Social History Alcohol Use: Denies Use Number of Drinks Today: Alcohol Beverage of Choice: Wine Recreational Drug Use: Yes (PAST HISTORY) Smoking Status: Former Smoker Type Used: Cigarettes Former Smoker, Quit: Jul 19, 2019 Recent Foreign Travel: No Contact w/Someone Who Travel: No Recent Infectious Disease Expo: No Recent Hopitalizations: No Physical Abuse: No Sexual Abuse: No Mistreated: No Fear: No Immunizations Up To Date Tetanus Booster (TDap): Unknown PED Vaccines UTD: No Date of Pneumonia Vaccine: Mar 22, 2019 Date of Influenza Vaccine: Mar 28, 2019 Seasonal Allergies Seasonal Allergies: Yes Past Medical History Surgeries: Yes (THROAT BX, PEG TUBE PLACEMENT AND REMOVAL, POWER PORT, PARTIAL LUNG, ) Bowel Surgery, CABG Respiratory: Yes (HX LUNG CA, can't tolerate cpap if needed post op use bipap) COPD, Emphysema Currently Using BIPAP: No Cardiac: Yes (CABG, HX OF HEART ATTACK X2, QUAD BYPASS, CHF) Atrial Fibrillation, Chronic Edema/Swelling, Coronary Artery Disease, High Cholesterol, Hypertension Neurological: No 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 Sexually Transmitted Disease: No HIV/AIDS: No Genitourinary: No Renal Failure Gastrointestinal: Yes (FEEDING TUBE- REMOVED 04/13/14, adenoma of colon) Gastroesophageal Reflux, Pancreatitis, Polyps Musculoskeletal: Yes Arthritis, Chronic Back Pain Endocrine: Yes Diabetes, Insulin dep, Hypothyroidsim HEENT: No Loss of Vision: Bilateral Hearing Impairment: Denies Cancer: Yes (THROAT, LUNG) Lung, Colon Did You Recieve Any Treatments: Yes What Type of Treatment Did You: Chemotherapy, Radiation, Surgical Intervention Psychosocial: Yes Anxiety Integumentary: No Blood Disorders: No (anemia) Adverse Reaction/Blood Tranf: No (N/A) Family Medical History CHF 19 MOTHER Cardiovascular disease 19 FATHER 19 MOTHER FH: lung cancer 19 FATHER UTERINE CANCER 19 MOTHER No Pertinent Family Hx Physical Exam Vital Signs Vital Signs - First Documented 11/14/19 11/14/19 09:30 14:45 Temp 36.1 Pulse 100 Resp 18 B/P (MAP) 116/84 (95) Pulse Ox 97 O2 Delivery Room Air Height, Weight, BMI Height: 5'10.00" Weight: 208lbs. 0.0oz. 94.503174km; 31.00 BMI Method:Stated General Appearance: WD/WN, no apparent distress Eyes: bilateral eye normal inspection, bilateral eye PERRL, bilateral eye EOMI Ears: bilateral ear auricle normal, bilateral ear canal normal, bilateral ear TM normal Nose: normal inspection Mouth/Throat: other (There is some mucousy drainage in the posterior pharynx with whitish phlegm. No erythema or inflammation. No distinct thrush. 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 as tested, no motor/sensory deficits, alert, normal mood/affect, oriented x 3 Skin: normal color, warm/dry Progress/Results/Core Measures Results/Orders Lab Results Laboratory Tests Test 11/14/19 09:42 11/14/19 09:46 11/14/19 20:14 Range/Units White Blood Count 10.5 4.3-11.0 10^3/uL Red Blood Count 4.46 4.35-5.85 10^6/uL Hemoglobin 13.0 11.5-16.0 G/DL Hematocrit 39 35-52 % Mean Corpuscular Volume 87 80-99 FL Mean Corpuscular Hemoglobin 29 25-34 PG Mean Corpuscular Hemoglobin Concent 33 32-36 G/DL Red Cell Distribution Width 14.2 10.0-14.5 % Platelet Count 165 130-400 10^3/uL Mean Platelet Volume 9.9 7.4-10.4 FL Neutrophils (%) (Auto) 83 H 42-75 % Lymphocytes (%) (Auto) 9 L 12-44 % Monocytes (%) (Auto) 7 0-12 % Eosinophils (%) (Auto) 2 0-10 % Basophils (%) (Auto) 0 0-10 % Neutrophils # (Auto) 8.7 H 1.8-7.8 X 10^3 Lymphocytes # (Auto) 1.0 1.0-4.0 X 10^3 Monocytes # (Auto) 0.7 0.0-1.0 X 10^3 Eosinophils # (Auto) 0.2 0.0-0.3 10^3/uL Basophils # (Auto) 0.0 0.0-0.1 10^3/uL Sodium Level 138 135-145 MMOL/L Potassium Level 4.4 3.6-5.0 MMOL/L Chloride Level 105 98-107 MMOL/L Carbon Dioxide Level 23 21-32 MMOL/L Anion Gap 10 5-14 MMOL/L Blood Urea Nitrogen 25 H 7-18 MG/DL Creatinine 1.56 H 0.60-1.30 MG/DL Estimat Glomerular Filtration Rate 34 BUN/Creatinine Ratio 16 Glucose Level 186 H 70-105 MG/DL Calcium Level 9.9 8.5-10.1 MG/DL Corrected Calcium 9.9 8.5-10.1 MG/DL Total Bilirubin 0.7 0.1-1.0 MG/DL Aspartate Amino Transf (AST/SGOT) 43 H 5-34 U/L Alanine Aminotransferase (ALT/SGPT) 37 0-55 U/L Alkaline Phosphatase 59 40-136 U/L C-Reactive Protein High Sensitivity 4.53 H 0.00-0.50 MG/DL Total Protein 7.3 6.4-8.2 GM/DL Albumin 4.0 3.2-4.5 GM/DL Group A Streptococcus Screen NEGATIVE NEGATIVE Glucometer 218 H 70-110 MG/DL My Orders Orders - RONIT TRUONG MD Cbc With Automated Diff (11/14/19 09:26) Comprehensive Metabolic Panel (11/14/19 09:26) Hs C Reactive Protein (11/14/19 09:26) Rapid Strep A Screen (11/14/19 09:26) Ed Iv/Invasive Line Start (11/14/19 09:26) Ct Neck (Soft Tissue) Wo (11/14/19 10:11) Fentanyl Injection (Sublimaze Injection (11/14/19 11:45) Oxymetazoline 0.05% Nasal [place] (Afrin 0. (11/14/19 12:26) Cefuroxime Injection (Zinacef Injection) (11/14/19 13:45) Medications Given in ED Current Medications Medications Dose Ordered Sig/Addis Route Start Time Stop Time Status Last Admin Dose Admin Fentanyl Citrate 50 mcg ONCE ONCE IVP 11/14/19 11:45 11/14/19 11:46 DC 11/14/19 12:03 50 MCG Oxymetazoline HCl 30 ml STK-MED ONCE .ROUTE 11/14/19 12:26 11/14/19 12:35 DC 11/14/19 12:30 30 ML Vital Signs/I&O 11/14/19 11/14/19 11/14/19 11/14/19 09:30 14:45 14:54 15:00 Temp 36.1 36.1 36.7 Pulse 100 90 90 Resp 18 18 20 B/P (MAP) 116/84 (95) 124/80 (95) 167/100 (122) Pulse Ox 97 95 98 96 O2 Delivery Room Air Room Air 11/14/19 11/14/19 11/14/19 11/14/19 15:24 16:00 16:00 16:00 Temp 36.6 Pulse 82 82 Resp 15 B/P (MAP) 158/89 (112) Pulse Ox 96 91 O2 Delivery Room Air Room Air 11/14/19 11/14/19 11/14/19 11/14/19 17:00 18:00 20:00 20:00 Temp 37.0 Pulse 93 95 Resp 29 20 B/P (MAP) 198/94 (128) 134/87 (103) Pulse Ox 96 96 96 O2 Delivery Room Air Room Air Room Air Blood Pressure Mean: 95 Progress Progress Note : Progress Note Patient was seen and examined. Labs were reviewed. CT soft tissues neck without contrast was obtained. This was compared with prior CT. Patient has chronic thickening of the airway especially around the glottic and epiglottic space. This appears stable from prior. Although CT remains stable, patient is now symptomatic with a narrowed airway. I contacted Marva Velasquez on behalf of Dr. Rivas. She perform fiberoptic laryngoscopy. There is no acute obstruction of the airway. She did not appear particularly inflamed or have evidence of infection. She further discussed the case with Dr. Rivas. Due to patient's symptoms, they recommended treatment with racemic epinephrine for shortness of breath, oxygen therapy as needed via face tent, and antibiotic therapy with cefuroxime 1.5 g every 8 hours. Cefuroxime is being given to the ER. Patient was treated for pain with fentanyl 50 g prior to laryngoscopy. Diagnostic Imaging Diagonstic Imaging: CT Plain Films/CT/US/NM/MRI: other (soft tissues neck) Comments CT soft tissues neck viewed by me and report reviewed. See report below: NAME: MUKESH COULTER [facility] REC#: [id number] PT STATUS: REG ER : 1960 PHYSICIAN: RONIT TRUONG MD ADMIT DATE: 11/14/19/ER Signed Date of Exam:11/14/19 CT NECK (SOFT TISSUE) WO PROCEDURE: CT neck soft tissue without contrast. TECHNIQUE: Multiple contiguous axial images were obtained through the neck without the use of intravenous contrast. Auto Exposure Controls were utilized during the CT exam to meet ALARA standards for radiation dose reduction. INDICATION: Throat pain and difficulty swallowing COMPARISON: 07/23/2019 FINDINGS: The muscles of mastication are unremarkable. Atrophy and fatty infiltration of the bilateral submandibular glands is again identified. Fat stranding about the submandibular glands and associated with the chin appear improved since the prior examination. The fossa of Rosenmuller are symmetric. Parapharyngeal fat is symmetric. Significant thickening of the epiglottis and aryepiglottic folds is again noted. Masslike thickening and distortion within the glottic and subglottic location appears similar to the prior examination. Resulting narrowing of the airway at this location is again identified, though stable from the prior exam. No new adenopathy. No new focal fluid collection. Left-sided Port-A-Cath is in place. Emphysematous changes within the upper lungs without apical pneumothorax. CABG. Scattered osseous degenerative changes, including severe degenerative changes at the C6/C7 level. There is resulting multilevel central canal stenosis, particularly at C5/C6 and C6/C7 with additional high-grade bilateral neural foraminal stenosis also noted at these levels. The visualized paranasal sinuses are clear. No temporomandibular joint dislocation. The patient is edentulous. IMPRESSION: Persistent masslike fullness and distortion associated with the glottic and infraglottic location, appearing stable from the prior exam. Improved inflammatory stranding associated with the neck, particularly about the submandibular gland. This likely relates to improving postradiation changes. No new focal fluid collection. No new or increasing adenopathy. Advanced degenerative changes within osseous structures with resulting relatively high-grade central canal and neural foraminal stenosis, particularly at C5/C6 and C6/C7. Dictated by: Dictated on workstation # [id number] Dict: 11/14/19 1028 Trans: 11/14/19 1053 [facility] [id number] Interpreted by: SILVIA PAUL MD Electronically signed by: SILVIA PAUL MD 11/14/19 1053 Departure Communication (Admissions) Time/Spoke to Admitting Phy: 13:25 Dr. Amaya Time/Spoke to Consulting Phy: 11:40 Marva Velasquez on behalf of Dr. Rivas Impression Primary Impression: Constriction of airway Additional Impressions: Dysphasia Sore throat Disposition: ADMITTED INPATIENT Condition: Improved Admissions Decision to Admit Reason: Admit from ER (General) Decision to Admit/Date: November 14, 2019 Time/Decision to Admit Time: 13:00 Departure-Patient Inst. Referrals: CODEY CHATMAN MD (PCP/Family) Primary Care Physician RONIT TRUONG MD November 14, 2019 13:12
--- NOTE | 2019-11-14 13:34 | Progress Note ---
Standard Progress Note Progress Notes/Assess & Plan Date Seen by a Provider: November 14, 2019 Time Seen by a Provider: 12:00 Progress/Assessment & Plan HPI-Patient evaluated in ER for hoarseness, dysphagia, and shortness of breath. States that last night after supper she began to have throat pain. She has difficulty swallowing foods and pills. Can swallow liquids but does cause some discomfort. She has a history of a Squamous Cell Carcinoma of the throat. Has need been seen by the [facility] since June of 2016. Does continue routine care with oncology. Has an appt with Dr. Lee in 2-3 weeks. Recently finished doxycycline for a leg wound and dental. Physical Exam- Patient was resting in bed upon arrival. Pulse Ox was 97. Oral cavity was clear. No masses. After informed consent was obtained. Both nares were decongested with Afrin and anesthetized with Lidocaine. A flexible scope was advanced through the nasopharyngeal cavity. Obvious changes were noted to the arytenoid cartilage. There was moderate swelling. Vocal cords were hard to visualize, however no apparent masses or lesions were noted. No pooling of secretions were noted. Assessment- hoarseness, post radiation treatment., dysphagia Plan- The above findings were discussed with Dr. Rivas. At this time he does recommend the patient be admitted for observation. Also, Racemic epinephrine treatments every 4 hours as needed. Cefuroxime 1.5 grams q 8 hours. Patient does have an appt in [place] on Friday and was encouraged to keep this appointment. Final Diagnosis dysphagia hoarseness ELVIRA MARTINEZ [employer] November 14, 2019 13:34
[2019-11-14] MEDS ORDERED: CEFUROXIME INJECTION 1,500 MG in WATER (STERILE) FOR INJECTION 15 ML IV ONE (13:45)
[2019-11-14] MEDS ORDERED: ONDANSETRON 4 MG/2 ML (SDV) Z0FRAN IV PRN (15:00)
[2019-11-14] MEDS ORDERED: RT-epiNEPHrine (RACEMIC) 2.25% 0.5 ML VIAL INH PRN (15:15)
[2019-11-14] MEDS: LACTATED RINGERS 1,000 ML IV SCH ×2 (15:15→22:33)
[2019-11-14] MEDS: fentaNYL INJECTION 100 MCG/2 ML AMP IV PRN ×3 (15:45→22:58)
[2019-11-14] MEDS ORDERED: BISACODYL 10 MG SUPP (DULCOLAX) PR PRN (16:00)
[2019-11-14] MEDS ORDERED: DOCUSATE SODIUM 100 MG (COLACE) CAP PO PRN (16:00)
[2019-11-14] MEDS ORDERED: MELATONIN 3 MG TABLET PO PRN (16:00)
[2019-11-14] MEDS ORDERED: ONDANSETRON 4 MG/2 ML (SDV) Z0FRAN IVP PRN (16:00)
[2019-11-14] MEDS ORDERED: ACETAMINOPHEN 500 MG TAB (TYLENOL) PO PRN (16:00)
[2019-11-14] MEDS ORDERED: LOPERAMIDE 2 MG (IMODIUM) TABLET PO PRN (16:00)
[2019-11-14] MEDS ORDERED: ALPRAZolam 0.25 MG (XANAX) TAB PO PRN (16:00)
[2019-11-14] MEDS ORDERED: HYDROcodone/APAP 5 MG/325 MG (LORTAB) TAB PO PRN (16:00)
[2019-11-14] MEDS ORDERED: diphenhydrAMINE 25 MG TAB (BENADRYL) PO PRN (16:00)
[2019-11-14] MEDS ORDERED: CALCIUM CARBONATE 500 MG (TUMS) TAB.CHEW PO PRN (16:00)
--- NOTE | 2019-11-14 17:19 | NUR ---
THIS NURSE NOTIFIED DR TREJO OF CONSULT.
--- NOTE | 2019-11-14 17:25 | NUR ---
THIS NURSE NOTIFIED DR AMAYA PT SBP HAS BEEN IN THE 190S. PT STATES SHE HAS NOT BEEN ABLE TO TAKE ANY OF HER HOME MEDS. DR AMAYA TO PUT IN ORDERS. SEE ORDER HX. WILL CONTINUE TO MONITOR.
[2019-11-14] MEDS ORDERED: amLODIPine 5 MG (NORVASC) TAB PO ONE (17:30)
[2019-11-14] MEDS ORDERED: cloNIDine 0.1 MG (CATAPRES) TAB PO PRN (17:30)
--- NOTE | 2019-11-14 18:48 | History & Physical-Hospitalist ---
History of Present Illness HPI/Chief Complaint CC: Glottis infection with airway compromise HPI: This is a 59yoWF known to me from prior admits who receives her care at [facility] who presents to the ER with throat pain and swelling to the point of unable to manage her saliva. Dr Rivas's surveyor's assistant was consulted who came to ER and examined the airway and noted no impending edema but it was recommended to place on IV abx and ICU for airway monitoring and will be managed conservatively unless critical changes occur. Since admit she has felt much better and feels like abx have helped her a great deal. O2 saturation is maintained and AF is stable. Source: patient Exam Limitations: no limitations Date Seen 11/14/19 Time Seen by a Provider: 17:50 Attending Physician Teresita Parada Julie A MD Referring Physician Date of Admission November 14, 2019 at 13:25 Home Medications & Allergies Home Medications Reviewed patient Home Medication Reconciliation performed by pharmacy medication reconciliations energy conservation technician and/or nursing. Patients Allergies have been reviewed. Allergies Allergies Coded Allergies enalaprilat (Verified Allergy, Severe, anaphylactic, 08/06/18) codeine (Unverified Allergy, Mild, GI UPSET, 08/06/18) haloperidol (Unverified Allergy, Mild, NAUSEA, 08/06/18) Past Moymmzy-Usgfxm-Egcgzm Hx Past Med/Social Hx: Reviewed Nursing Past Med/Soc Hx, Reviewed and Corrections made Patient Social History Marrital Status: single Employed/Student: unemployed Alcohol Use: Denies Use Number of Drinks Today: Alcohol Beverage of Choice: Wine Recreational Drug Use: Yes (PAST HISTORY) Smoking Status: Former Smoker Former Smoker, Quit: Jul 19, 2019 Type Used: Cigarettes Recent Foreign Travel: No Contact w/other who traveled: No Recent Hopitalizations: No Recent Infectious Disease Expo: No Immunizations Up To Date Tetanus Booster (TDap): Unknown Pediatric: No Date of Pneumonia Vaccine: Mar 22, 2019 Date of Influenza Vaccine: Mar 28, 2019 Seasonal Allergies Seasonal Allergies: Yes Past Medical History Surgeries: Bowel Surgery, CABG Respiratory: COPD, Pneumonia Currently Using BIPAP: No Cardiac: Atrial Fibrillation, Chronic Edema/Swelling, Coronary Artery Disease, High Cholesterol, Hypertension Reproductive: No Sexually Transmitted Disease: No HIV/AIDS: No Menopausal Genitourinary: Renal Failure Gastrointestinal: Gastroesophageal Reflux, Pancreatitis, Polyps Musculoskeletal: Arthritis, Chronic Back Pain Endocrine: Diabetes, Insulin dep, Hypothyroidsim Loss of Vision: Bilateral Hearing Impairment: Denies Cancer: Lung, Colon Did You Recieve Any Treatments: Yes What Type of Treatment Did You: Chemotherapy, Radiation, Surgical Intervention Cancer: supraglottic cancer 2013 Psychosocial: Anxiety History of Blood Disorders: No (anemia) Adverse Reaction to Blood Lombardo: No (N/A) Family History CHF 19 MOTHER Cardiovascular disease 19 FATHER 19 MOTHER FH: lung cancer 19 FATHER UTERINE CANCER 19 MOTHER No Pertinent Family Hx Review of Systems Constitutional: see HPI, malaise, weakness EENTM: hoarseness, throat pain, throat swelling Respiratory: no symptoms reported Cardiovascular: no symptoms reported Gastrointestinal: no symptoms reported Genitourinary: no symptoms reported Musculoskeletal: no symptoms reported Skin: no symptoms reported Psychiatric/Neurological: No Symptoms Reported All Other Systems Reviewed Negative Unless Noted: Yes Physical Exam Physical Exam Vital Signs Vital Signs - First Documented 11/14/19 11/14/19 09:30 14:45 Temp 36.1 Pulse 100 Resp 18 B/P (MAP) 116/84 (95) Pulse Ox 97 O2 Delivery Room Air Capillary Refill : Less Than 3 Seconds Height, Weight, BMI Height: 5'10.00" Weight: 208lbs. 0.0oz. 94.569862mz; 32.03 BMI Method:Stated General Appearance: No Apparent Distress, Anxious, Chronically ill Eyes: Right Eye Normal Inspection, Right Eye PERRL HEENT: PERRL/EOMI, Normal ENT Inspection, Moist Mucous Membranes, Other (pharynx edema noted) Neck: Full Range of Motion, Normal Inspection, Non Tender Respiratory: Chest Non Tender, Lungs Clear, Normal Breath Sounds, No Accessory Muscle Use, No Respiratory Distress Cardiovascular: Regular Rate, Rhythm, No Edema, No Gallop, No JVD, No Murmur, Normal Peripheral Pulses Gastrointestinal: Normal Bowel Sounds, No Organomegaly, No Pulsatile Mass, Non Tender, Soft Back: Normal Inspection, No CVA Tenderness, No Vertebral Tenderness Extremity: Normal Capillary Refill, Normal Inspection, Normal Range of Motion, Non Tender, No Calf Tenderness, No Pedal Edema Neurologic/Psychiatric: Alert, Oriented x3, No Motor/Sensory Deficits, Normal Mood/Affect Skin: Normal Color, Warm/Dry Lymphatic: No Adenopathy Results Results/Procedures Labs Laboratory Tests 11/14/19 09:42 Patient resulted labs reviewed. 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
[2019-11-14] MEDS: hydrALAZINE (APESOLINE) 20 MG/ML VIAL IV PRN (20:12)
[2019-11-14] MEDS: APIXABAN 5 MG (ELIQUIS) TABLET PO SCH (20:12)
[2019-11-14] MEDS: SENNA W/DOCUSATE (SENOKOT S) TABLET PO SCH (20:12)
[2019-11-14] MEDS: inSUlin ASPART (NovoLOG) 1 UNIT/0.01 ML (CHARGE PER UNIT) SC SCH (20:17)
[2019-11-14] MEDS: CEFUROXIME 1,500 MG/SWFI 15 ML IV PUSH IV SCH ×2 (21:31)
[2019-11-15] VITALS (12 sets, daily range): BP systolic 118–194; BP diastolic 73–99
[2019-11-15] MEDS: fentaNYL INJECTION 100 MCG/2 ML AMP IV PRN (03:00)
[2019-11-15] MEDS: hydrALAZINE (APESOLINE) 20 MG/ML VIAL IV PRN (03:02)
[2019-11-15 03:40] LABS: BASOPHILS % (AUTO) 0 % (0-10); EOSINOPHILS # (AUTO) 0.1 10^3/uL (0.0-0.3); EOSINOPHILS % (AUTO) 2 % (0-10); HEMATOCRIT 39 % (35-52); HEMOGLOBIN 12.7 G/DL (11.5-16.0); LYMPHOCYTES # (AUTO) 1.4 X 10^3 (1.0-4.0); LYMPHOCYTES % (AUTO) 19 % (12-44); MEAN CORPUSCULAR HEMOGLOBIN 29 PG (25-34); MEAN CORPUSCULAR HGB CONC 33 G/DL (32-36); MEAN CORPUSCULAR VOLUME 89 FL (80-99); MEAN PLATELET VOLUME 10.5 FL (7.4-10.4); MONOCYTES # (AUTO) 0.6 X 10^3 (0.0-1.0); MONOCYTES % (AUTO) 8 % (0-12); NEUTROPHILS # (AUTO) 5.2 X 10^3 (1.8-7.8); NEUTROPHILS % (AUTO) 72 % (42-75); PLATELET COUNT 152 10^3/uL (130-400); RED CELL DISTRIBUTION WIDTH 14.5 % (10.0-14.5); WHITE BLOOD COUNT 7.3 10^3/uL (4.3-11.0)
[2019-11-15 03:47] LABS: POTASSIUM 4.2 MMOL/L (3.6-5.0)
[2019-11-15 03:48] LABS: CALCIUM 9.8 MG/DL (8.5-10.1)
[2019-11-15 03:52] LABS: CREATININE SERUM 1.35 MG/DL (0.60-1.30); PHOSPHORUS 3.9 MG/DL (2.3-4.7)
[2019-11-15 03:55] LABS: MAGNESIUM 1.5 MG/DL (1.6-2.4)
[2019-11-15] MEDS: MAGNESIUM 1 GM/100 ML IVPB 100 ML IV SCH ×2 (05:03→06:04)
[2019-11-15] MEDS: inSUlin ASPART (NovoLOG) 1 UNIT/0.01 ML (CHARGE PER UNIT) SC SCH (05:33)
[2019-11-15] MEDS: CEFUROXIME 1,500 MG/SWFI 15 ML IV PUSH IV SCH ×2 (05:33)
[2019-11-15] MEDS ORDERED: POTASSIUM CL 10MEQ/50ML IVPB 50 ML IV SCH (06:00)
[2019-11-15] MEDS ORDERED: KCL 20 MEQ TAB (K-DUR) PO SCH (06:00)
[2019-11-15] MEDS ORDERED: MAGNESIUM 1 GM/100 ML IVPB 100 ML IV SCH (06:00)
--- NOTE | 2019-11-15 06:12 | Pulmonary Consultation ---
History of Present Illness History of Present Illness Date Seen by Provider: Nov 15, 2019 Time Seen by Provider: 06:08 Date of Admission Allergies and Home Medications Allergies Coded Allergies: enalaprilat (Verified Allergy, Severe, anaphylactic, 08/06/18) codeine (Unverified Allergy, Mild, GI UPSET, 08/06/18) haloperidol (Unverified Allergy, Mild, NAUSEA, 08/06/18) Home Medications Alprazolam 0.25 Mg Tablet, 0.25 MG PO DAILY PRN for ANXIETY, (Reported) Apixaban 5 Mg Tablet, 5 MG PO BID, (Reported) Atorvastatin Calcium 80 Mg Tablet, 40 MG PO HS, (Reported) Dronedarone HCl 400 Mg Tablet, 400 MG PO BID, (Reported) Ferrous Sulfate 325 Mg Tablet, 325 MG PO DAILY, (Reported) Fluconazole 100 Mg Tablet, 100 MG PO DAILY@0800 Prescribed by: MAIK AMAYA on 07/29/19 1116 Furosemide 40 Mg Tablet, 40 MG PO DAILY PRN for SWELLING Prescribed by: MAIK AMAYA on 07/29/19 1155 Insulin Determir 1,000 Units/10 Ml Soln, 45 UNITS SQ BID Resume regular dosing on 08/02/19 Prescribed by: MAIK AMAYA on 07/29/19 1155 Insulin Lispro 100 Unit/1 Ml Insuln.pen, 25 UNIT SQ TIDAC Return back to usual dose on 08/02/19 Prescribed by: MAIK AMAYA on 07/29/19 1155 Ipratropium/Albuterol Sulfate 3 Ml Ampul.neb, 3 ML INH RTQ6HR Prescribed by: MAIK AMAYA on 07/29/19 1116 Levothyroxine Sodium 88 Mcg Tablet, 88 MCG PO DAILY, (Reported) Losartan Potassium 100 Mg Tablet, 100 MG PO DAILY Prescribed by: MAIK AMAYA on 07/29/19 1116 Metoprolol Tartrate 25 Mg Tablet, 25 MG PO BID, (Reported) Montelukast Sodium 10 Mg Tablet, 10 MG PO HS, (Reported) Olodaterol HCl 4 Gm Mist.inhal, 4 GM IH BID, (Reported) [place]-3 Fatty Acids/Fish Oil 1 Each Capsule, 2,400 MG PO DAILY, (Reported) TAKES 2 (1200MG) CAPSULES Omeprazole 20 Mg Capsule.dr, 20 MG PO DAILY, (Reported) Potassium Chloride 10 Meq Capsule.er, 10 MEQ PO DAILY PRN, (Reported) [doxycycline] , 20 MG BID, (Reported) Past Kgocvap-Frsggm-Fvdvpz Hx Past Med/Social Hx: Reviewed Nursing Past Med/Soc Hx, Reviewed and Corrections made Patient Social History Alcohol Use: Denies Use Number of Drinks Today: Alcohol Beverage of Choice: Wine Recreational Drug Use: Yes (PAST HISTORY) Smoking Status: Former Smoker Type Used: Cigarettes Former Smoker, Quit: Jul 19, 2019 Recent Foreign Travel: No Contact w/Someone Who Travel: No Recent Infectious Disease Expo: No Recent Hopitalizations: No Physical Abuse: No Sexual Abuse: No Mistreated: No Fear: No Immunizations Up To Date Tetanus Booster (TDap): Unknown PED Vaccines UTD: No Date of Pneumonia Vaccine: Mar 22, 2019 Date of Influenza Vaccine: Mar 28, 2019 Seasonal Allergies Seasonal Allergies: Yes Past Medical History Surgeries: Yes (THROAT BX, PEG TUBE PLACEMENT AND REMOVAL, POWER PORT, PARTIAL LUNG, ) Bowel Surgery, CABG Respiratory: Yes (HX LUNG CA, can't tolerate cpap if needed post op use bipap) COPD, Emphysema Currently Using BIPAP: No Cardiac: Yes (CABG, HX OF HEART ATTACK X2, QUAD BYPASS, CHF) Atrial Fibrillation, Chronic Edema/Swelling, Coronary Artery Disease, High Shannon sterol, Hypertension Neurological: No Reproductive Disorders: No 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 Sexually Transmitted Disease: No HIV/AIDS: No Genitourinary: No Renal Failure Gastrointestinal: Yes (FEEDING TUBE- REMOVED 04/13/14, adenoma of colon) Gastroesophageal Reflux, Pancreatitis, Polyps Musculoskeletal: Yes Arthritis, Chronic Back Pain Endocrine: Yes Diabetes, Insulin dep, Hypothyroidsim HEENT: No Loss of Vision: Bilateral Hearing Impairment: Denies Cancer: Yes (THROAT, LUNG) Lung, Colon Did You Recieve Any Treatments: Yes What Type of Treatment Did You: Chemotherapy, Radiation, Surgical Intervention supraglottic cancer 2014 Psychosocial: Yes Anxiety Integumentary: No Blood Disorders: No (anemia) Adverse Reaction/Blood Tranf: No (N/A) Family Medical History CHF 19 MOTHER Cardiovascular disease 19 FATHER 19 MOTHER FH: lung cancer 19 FATHER UTERINE CANCER 19 MOTHER No Pertinent Family Hx Sepsis Event Evaluation Height, Weight, BMI Height: 5'10.00" Weight: 208lbs. 0.0oz. 94.198192rt; 32.03 BMI Method:Stated Exam Exam Vital Signs Date Time Temp Pulse Resp B/P (MAP) Pulse Ox O2 Delivery O2 Flow Rate FiO2 11/15/19 05:00 106 20 150/85 (106) 99 Nasal Cannula 4.00 11/15/19 04:00 117 176/82 (113) 98 Nasal Cannula 4.00 11/15/19 03:10 36.0 11/15/19 03:07 99 Nasal Cannula 4.00 11/15/19 03:00 117 19 194/99 (130) 95 Nasal Cannula 4.00 11/15/19 02:00 111 18 181/96 (124) 97 Nasal Cannula 4.00 11/15/19 01:00 101 9 185/81 (115) 99 Nasal Cannula 4.00 11/15/19 01:00 101 11/15/19 00:00 109 16 186/78 (114) 98 Nasal Cannula 4.00 11/14/19 23:02 99 Nasal Cannula 4.00 11/14/19 23:00 36.9 11/14/19 23:00 102 18 161/73 (102) 99 Nasal Cannula 4.00 11/14/19 22:49 94 22 134/87 (103) 99 Nasal Cannula 4.00 11/14/19 22:00 93 14 153/82 (105) 100 Nasal Cannula 4.00 11/14/19 21:30 105 17 158/94 (115) 98 Nasal Cannula 4.00 11/14/19 21:15 105 25 191/96 (127) 97 Room Air 11/14/19 20:00 37.0 11/14/19 20:00 96 Room Air 11/14/19 20:00 92 19 197/88 (124) 90 Room Air 11/14/19 19:00 92 11/14/19 19:00 92 22 137/82 (100) Room Air 11/14/19 18:00 95 20 134/87 (103) 96 Room Air 11/14/19 17:00 93 29 198/94 (128) 96 Room Air 11/14/19 16:00 36.6 11/14/19 16:00 82 15 158/89 (112) 91 Room Air 11/14/19 16:00 96 Room Air 11/14/19 15:24 82 11/14/19 15:00 36.7 90 20 167/100 (122) 96 Room Air 11/14/19 14:54 36.1 90 18 124/80 (95) 98 11/14/19 14:45 95 Room Air 11/14/19 09:30 36.1 100 18 116/84 (95) 97 I & O 11/15/19 07:00 Intake Total 2005 ml Output Total 2000 ml Balance 5 ml Height & Weight Height: 5'10.00" Weight: 208lbs. 0.0oz. 94.870444ph; 32.03 BMI Method:Stated General Appearance: No Apparent Distress, Anxious, Chronically ill HEENT: PERRL/EOMI, Normal ENT Inspection, Moist Mucous Membranes, Other (pharynx edema noted) Neck: Full Range of Motion, Normal Inspection, Non Tender Respiratory: Chest Non Tender, Lungs Clear, Normal Breath Sounds, No Accessory Muscle Use, No Respiratory Distress Cardiovascular: Regular Rate, Rhythm, No Edema, No Gallop, No JVD, No Murmur, Normal Peripheral Pulses Capillary Refill: Less Than 3 Seconds Gastrointestinal: non tender, soft Extremity: Normal Capillary Refill, Normal Inspection, Normal Range of Motion, Non Tender, No Calf Tenderness, No Pedal Edema Neurologic/Psychiatric: Alert, Oriented x3, No Motor/Sensory Deficits, Normal Mood/Affect Skin: Normal Color, Warm/Dry Lymphatic: No Adenopathy Results Lab Laboratory Tests 11/14/19 09:42 11/15/19 03:20 Assessment/Plan Assessment/Plan worsening dyspnea -ENT consulted -Start Duonebs and pulmicort -Start Solumedrol Supraglottic cancer s/p radiation 3yrs Smoker LILIAN TREJO DO Nov 15, 2019 06:12
[2019-11-15] MEDS: LACTATED RINGERS 1,000 ML IV SCH (06:17)
[2019-11-15] MEDS ORDERED: RT-BUDESONIDE NEBS 0.5 MG/2ML (PULMICORT) AMP INH SCH (08:00)
--- NOTE | 2019-11-15 08:15 | Diagnostic Imaging Report ---
Portable erect AP chest at 340 hours. INDICATION: Dyspnea. FINDINGS: This study is less than optimal as the patient is rotated. Allowing for this technical factor, the heart is stable in size when compared to the prior exam of 11/10/2019. The sternal wires and surgical clips noted previously are again evident and no different. The lungs remain generally clear. There is still no sign of failure, pneumonia or pleural effusion. The mediastinum is not widened. The osseous structures are intact. The central venous catheter on the left seen previously appears similar in position. IMPRESSION: Stable chest. There has been no adverse change since the prior exam. Dictated by: Dictated on workstation # [id number]
[2019-11-15] MEDS: APIXABAN 5 MG (ELIQUIS) TABLET PO SCH (08:21)
[2019-11-15] MEDS: SENNA W/DOCUSATE (SENOKOT S) TABLET PO SCH (08:21)
[2019-11-15] MEDS ORDERED: amLODIPine 5 MG (NORVASC) TAB PO SCH (09:00)
[2019-11-15] MEDS ORDERED: RT-ALBUTEROL/IPRATROPIUM 3 ML (DUONEB) VIAL INH SCH (09:00)
[2019-11-15] MEDS ORDERED: CEFU500T63 PO (09:07)
[2019-11-15] MEDS ORDERED: PRED10TA22 PO (09:07)
--- NOTE | 2019-11-15 09:08 | Discharge Summary ---
Discharge Summary Hospital Course Was the Problem List Reviewed?: Yes Hospital Course Date of Admission: November 14, 2019 at 13:25 Admission Diagnosis : Family Physician/Provider: Bev Villalpando MD Date of Discharge: 11/15/19 Discharge Diagnosis: epiglottis edema with airway compromise Hospital Course: Hospital Course: Pt had an uneventful short hospital course she was admitted for precautionary reasons from airway compromise from glottis inflammation and edema. Pt was placed empirically on IV antibiotics and IV steroids. Overall she did very well, pt was restarted on all home medications. She was able to eat and drink and take her pills, had no significant secretion retention and overall she was DC in improved condition after Dr. Ledezma and Dr. Rivas agreed. Labs and Pending Lab Test: Laboratory Tests 11/14/19 09:42: White Blood Count 10.5, Red Blood Count 4.46, Hemoglobin 13.0, Hematocrit 39, Mean Corpuscular Volume 87, Mean Corpuscular Hemoglobin 29, Mean Corpuscular Hemoglobin Concent 33, Red Cell Distribution Width 14.2, Platelet Count 165, Mean Platelet Volume 9.9, Neutrophils (%) (Auto) 83H, Lymphocytes (%) (Auto) 9L, Monocytes (%) (Auto) 7, Eosinophils (%) (Auto) 2, Basophils (%) (Auto) 0, Neutrophils # (Auto) 8.7H, Lymphocytes # (Auto) 1.0, Monocytes # (Auto) 0.7, Eosinophils # (Auto) 0.2, Basophils # (Auto) 0.0, Sodium Level 138, Potassium Level 4.4, Chloride Level 105, Carbon Dioxide Level 23, Anion Gap 10, Blood Urea Nitrogen 25H, Creatinine 1.56H, Estimat Glomerular Filtration Rate 34, BUN/Creatinine Ratio 16, Glucose Level 186H, Calcium Level 9.9, Corrected Calcium 9.9, Total Bilirubin 0.7, Aspartate Amino Transf (AST/SGOT) 43H, Alanine Aminotransferase (ALT/SGPT) 37, Alkaline Phosphatase 59, C-Reactive Protein High Sensitivity 4.53H, Total Protein 7.3, Albumin 4.0 11/14/19 09:46: Group A Streptococcus Screen NEGATIVE 11/14/19 20:14: Glucometer 218H 11/15/19 03:20: White Blood Count 7.3, Red Blood Count 4.34L, Hemoglobin 12.7, Hematocrit 39, Mean Corpuscular Volume 89, Mean Corpuscular Hemoglobin 29, Mean Corpuscular Hemoglobin Concent 33, Red Cell Distribution Width 14.5, Platelet Count 152, Mean Platelet Volume 10.5H, Neutrophils (%) (Auto) 72, Lymphocytes (%) (Auto) 19, Monocytes (%) (Auto) 8, Eosinophils (%) (Auto) 2, Basophils (%) (Auto) 0, Neutrophils # (Auto) 5.2, Lymphocytes # (Auto) 1.4, Monocytes # (Auto) 0.6, Eosinophils # (Auto) 0.1, Basophils # (Auto) 0.0, Sodium Level 139, Potassium Level 4.2, Chloride Level 105, Carbon Dioxide Level 22, Anion Gap 12, Blood Urea Nitrogen 20H, Creatinine 1.35H, Estimat Glomerular Filtration Rate 40, BUN/Creatinine Ratio 15, Glucose Level 239H, Calcium Level 9.8, Phosphorus Level 3.9, Magnesium Level 1.5L Home Meds Active Furosemide 40 Mg Tablet 40 Mg PO DAILY PRN Humalog Kwikpen (Insulin Lispro) 100 Unit/1 Ml Insuln.pen 25 Unit SQ TIDAC 4 Days Return back to usual dose on 08/02/19 Levemir (Insulin Determir) 1,000 Units/10 Ml Soln 45 Units SQ BID 4 Days Resume regular dosing on 08/02/19 Losartan Potassium 100 Mg Tablet 100 Mg PO DAILY Iprat-Albut 0.5-3(2.5) mg/3 ml (Ipratropium/Albuterol Sulfate) 3 Ml Ampul.neb 3 Ml INH RTQ6HR Fluconazole 100 Mg Tablet 100 Mg PO DAILY@0800 Reported Striverdi Respimat (Olodaterol HCl) 4 Gm Mist.inhal 4 Gm IH BID [doxycycline] 20 Mg BID Potassium Chloride 10 Meq Capsule.er 10 Meq PO DAILY PRN Metoprolol Tartrate 25 Mg Tablet 25 Mg PO BID Atorvastatin Calcium 80 Mg Tablet 40 Mg PO HS Multaq (Dronedarone HCl) 400 Mg Tablet 400 Mg PO BID Eliquis (Apixaban) 5 Mg Tablet 5 Mg PO BID Ferosul (Ferrous Sulfate) 325 Mg Tablet 325 Mg PO DAILY Levothyroxine Sodium 88 Mcg Tablet 88 Mcg PO DAILY Omeprazole 20 Mg Capsule.dr 20 Mg PO DAILY Montelukast Sodium 10 Mg Tablet 10 Mg PO HS Xanax (Alprazolam) 0.25 Mg Tablet 0.25 Mg PO DAILY PRN Fish Oil 1,200 mg Softgel ([place]-3 Fatty Acids/Fish Oil) 1 Each Capsule 2,400 Mg PO DAILY TAKES 2 (1200MG) CAPSULES Assessment/Pt Instructions [facility] 1 week Discharge Planning: <30 minutes discharge planning Discharge Physical Examination Vital Signs Vital Signs Date Time Temp Pulse Resp B/P (MAP) Pulse Ox O2 Delivery O2 Flow Rate FiO2 11/15/19 08:43 96 Nasal Cannula 1.00 11/15/19 08:00 111 28 153/82 (105) 11/15/19 08:00 35.8 General Appearance: No Apparent Distress, WD/WN, Chronically ill Respiratory: Lungs Clear, Normal Breath Sounds, No Accessory Muscle Use, No Respiratory Distress Allergies: Coded Allergies: enalaprilat (Verified Allergy, Severe, anaphylactic, 08/06/18) codeine (Unverified Allergy, Mild, GI UPSET, 08/06/18) haloperidol (Unverified Allergy, Mild, NAUSEA, 08/06/18) Discharge Summary Date of Admission November 14, 2019 at 13:25 Date of Discharge Discharge Date: Nov 15, 2019 Admission Diagnosis Assessment: Glottis infection with inflammation and edema placing airway at risk h/o Cem angina 07/2019 admitted by this examiner PAF on OAC HLP Smoker h/o PNA CAD h/o CABG 2011 CHF DM 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
[2019-11-15] MEDS ORDERED: methylPREDNISolone 40 MG/ML (Solu-MEDROL) VIAL IV SCH (12:00)
--- NOTE | 2019-11-15 18:33 | CONSULTATION REPORT ---
DATE OF SERVICE: ENT PROGRESS NOTE LOCATION: ICU #12 [facility]. REASON FOR VISIT: Follow up for airway observation. HISTORY OF PRESENT ILLNESS: The patient was in the ICU overnight for airway observation. She maintained the room air sats fine. She got a little anxious at times, but that was cleared with medication. She is able to swallow her food and overall, she has significantly less pain. 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 Rasheed on Friday. This as an outpatient appointment at [place]. Her white count was 7.3. She is not running a fever. PHYSICAL EXAMINATION: Fiberoptic laryngoscopy was performed. Topical 4% Xylocaine was used to anesthetize the right side of the nose. Using the scope, the nasopharynx was clear. There is no mass, lesions or drainage present. Hypopharynx was clear. She has thickening of the epiglottis from post-treatment from her cancer several years ago. She has puffy edema of the arytenoids, which is better than it was yesterday. Her cords were visualized. They are mobile. She does have an airway present. I could not see into the piriform sinuses. IMPRESSION: 1. Upper airway obstruction " improved. 2. History of squamous cell carcinoma of the supraglottis. 3. History of chemo and radiation. 4. History of tobacco abuse. RECOMMENDATIONS: Findings were discussed with the patient. She has been started on Solu-Medrol and we will send her home on an 8-day prednisone taper. She will have to monitor her blood sugars. I also started on ____ 250/5 a teaspoon twice a day for 10 days to cover for any evidence of infection. If possible, we will need to get her out of the hospital, so she can keep her appointment with Dr. Rasheed on Friday afternoon. Her airway is stable and is back to its baseline. I will see her back in the office as an outpatient. Job ID: [id number] DocumentID: [id number] Dictated Date: 11/15/2019 07:17:46 Agency Operator Date: 11/15/2019 07:40:23 Dictated By: STEF MAI MD
== END 2019-11-15 10:40 | disposition home or self-care (01) ==
LOC: EDUNIT# 09:09 → ER 09:10 → ICU 13:25
PROVIDERS: ADMIT Internal Medicine; ATTEND Internal Medicine
DX: J38.4 Edema of larynx (principal); J98.8 Other specified respiratory disorders; J02.9 Acute pharyngitis, unspecified; I11.0 Hypertensive heart disease with heart failure; I48.0 Paroxysmal atrial fibrillation; I25.10 Atherosclerotic heart disease of native coronary artery without angina pectoris; I13.0 Hypertensive heart and chronic kidney disease with heart failure and stage 1 through stage 4 chronic kidney disease, or unspecified chronic kidney disease; J30.9 Allergic rhinitis, unspecified; J43.9 Emphysema, unspecified; K21.9 Gastro-esophageal reflux disease without esophagitis; M19.90 Unspecified osteoarthritis, unspecified site; G89.29 Other chronic pain; M54.9 Dorsalgia, unspecified; F41.9 Anxiety disorder, unspecified; E11.51 Type 2 diabetes mellitus with diabetic peripheral angiopathy without gangrene; E11.22 Type 2 diabetes mellitus with diabetic chronic kidney disease; N18.9 Chronic kidney disease, unspecified; Z85.818 Personal history of malignant neoplasm of other sites of lip, oral cavity, and pharynx; Z92.21 Personal history of antineoplastic chemotherapy; Z92.3 Personal history of irradiation; Z88.5 Allergy status to narcotic agent; Z79.4 Long term (current) use of insulin; Z87.891 Personal history of nicotine dependence; Z85.118 Personal history of other malignant neoplasm of bronchus and lung; Z85.038 Personal history of other malignant neoplasm of large intestine
CPT/HCPCS: 36415; 70490; 71045; 80048; 80053; 82962; 83735; 84100; 85025; 86141; 87081; 87430; 94640; 96374; 96375; G0378

== ENCOUNTER → 2019-11-18 | Outpatient (CLI) | payer MEDICARE ==
[~2019-11-18] MED LIST changes: +CEFU500T63 PO
== END ==
LOC: LAB 11:46
PROVIDERS: ATTEND Surgery
DX: E11.622 Type 2 diabetes mellitus with other skin ulcer (principal); L97.212 Non-pressure chronic ulcer of right calf with fat layer exposed; I70.232 Atherosclerosis of native arteries of right leg with ulceration of calf; L97.222 Non-pressure chronic ulcer of left calf with fat layer exposed; I70.242 Atherosclerosis of native arteries of left leg with ulceration of calf; J44.9 Chronic obstructive pulmonary disease, unspecified
CPT/HCPCS: 36415; 83036

== ENCOUNTER → 2019-11-18 | Outpatient (CLI) | payer MEDICARE | LOC: WOUNDCARE 10:32 | PROVIDERS: ATTEND Surgery | DX: I70.263 Atherosclerosis of native arteries of extremities with gangrene, bilateral legs (principal); L97.222 Non-pressure chronic ulcer of left calf with fat layer exposed; L97.212 Non-pressure chronic ulcer of right calf with fat layer exposed; J44.9 Chronic obstructive pulmonary disease, unspecified; L03.115 Cellulitis of right lower limb | CPT/HCPCS: 99213 ==

== ENCOUNTER 2019-11-25 12:40 | Outpatient (RCR) | payer MEDICARE, OTHER ==
[~2019-11-25 12:40] MED LIST changes: +MULT-567 PO; -MULT1TAB69 PO
[2019-11-25 13:04] LABS: BASOPHILS % (AUTO) 0 % (0-10); EOSINOPHILS # (AUTO) 0.1 10^3/uL (0.0-0.3); EOSINOPHILS % (AUTO) 1 % (0-10); HEMATOCRIT 37 % (35-52); HEMOGLOBIN 12.3 G/DL (11.5-16.0); LYMPHOCYTES # (AUTO) 2.4 X 10^3 (1.0-4.0); LYMPHOCYTES % (AUTO) 16 % (12-44); MEAN CORPUSCULAR HEMOGLOBIN 30 PG (25-34); MEAN CORPUSCULAR HGB CONC 33 G/DL (32-36); MEAN CORPUSCULAR VOLUME 90 FL (80-99); MEAN PLATELET VOLUME 10.2 FL (7.4-10.4); MONOCYTES # (AUTO) 0.9 X 10^3 (0.0-1.0); MONOCYTES % (AUTO) 6 % (0-12); NEUTROPHILS # (AUTO) 11.8 X 10^3 (1.8-7.8); NEUTROPHILS % (AUTO) 77 % (42-75); PLATELET COUNT 225 10^3/uL (130-400); RED CELL DISTRIBUTION WIDTH 14.3 % (10.0-14.5); WHITE BLOOD COUNT 15.2 10^3/uL (4.3-11.0)
[2019-11-25 13:30] LABS: ALBUMIN 3.8 GM/DL (3.2-4.5); BILIRUBIN,TOTAL 0.6 MG/DL (0.1-1.0); CALCIUM 9.4 MG/DL (8.5-10.1); CREATININE SERUM 1.44 MG/DL (0.60-1.30); POTASSIUM 4.3 MMOL/L (3.6-5.0); TOTAL PROTEIN 6.7 GM/DL (6.4-8.2)
== END 2019-12-07 | disposition home or self-care (01) ==
LOC: ONC 12:40
PROVIDERS: ATTEND Internal Medicine Hematology & Oncology
DX: Z45.2 Encounter for adjustment and management of vascular access device (principal); C18.1 Malignant neoplasm of appendix
CPT/HCPCS: 36591; 80053; 82728; 84443; 85025; 96523

== ENCOUNTER → 2019-11-25 | Outpatient (CLI) | payer MEDICARE | LOC: WOUNDCARE 11:03 | PROVIDERS: ATTEND Surgery | DX: I70.263 Atherosclerosis of native arteries of extremities with gangrene, bilateral legs (principal); L97.222 Non-pressure chronic ulcer of left calf with fat layer exposed; L97.212 Non-pressure chronic ulcer of right calf with fat layer exposed; J44.9 Chronic obstructive pulmonary disease, unspecified | CPT/HCPCS: 99213 ==

== ENCOUNTER → 2019-12-02 | Outpatient (CLI) | payer MEDICARE ==
[~2019-12-02] MED LIST changes: -MULT-567 PO; +MULT1TAB69 PO
== END ==
LOC: WOUNDCARE 10:58
PROVIDERS: ATTEND Surgery
DX: I70.263 Atherosclerosis of native arteries of extremities with gangrene, bilateral legs (principal); L97.222 Non-pressure chronic ulcer of left calf with fat layer exposed; L97.212 Non-pressure chronic ulcer of right calf with fat layer exposed; J44.9 Chronic obstructive pulmonary disease, unspecified
CPT/HCPCS: 99213

== ENCOUNTER → 2019-12-09 | Outpatient (CLI) | payer MEDICARE ==
[~2019-12-09] MED LIST changes: +MULT-567 PO; -MULT1TAB69 PO
== END ==
LOC: WOUNDCARE 10:50
PROVIDERS: ATTEND Surgery
DX: I70.263 Atherosclerosis of native arteries of extremities with gangrene, bilateral legs (principal); L97.222 Non-pressure chronic ulcer of left calf with fat layer exposed; L97.212 Non-pressure chronic ulcer of right calf with fat layer exposed; J44.9 Chronic obstructive pulmonary disease, unspecified
CPT/HCPCS: 99213

== ENCOUNTER → 2019-12-16 | Outpatient (CLI) | payer MEDICARE | LOC: WOUNDCARE 11:05 | PROVIDERS: ATTEND Surgery | DX: I70.242 Atherosclerosis of native arteries of left leg with ulceration of calf (principal); I70.232 Atherosclerosis of native arteries of right leg with ulceration of calf; L97.222 Non-pressure chronic ulcer of left calf with fat layer exposed; L97.212 Non-pressure chronic ulcer of right calf with fat layer exposed; J44.9 Chronic obstructive pulmonary disease, unspecified | CPT/HCPCS: 99212 ==

== ENCOUNTER 2020-03-20 12:42 | Outpatient (RCR) | payer MEDICARE ==
[~2020-03-20 12:42] MED LIST changes: +AMLO-250 PO; -AMLO5TAB9 PO
== END 2020-04-16 | disposition home or self-care (01) ==
LOC: ONC 12:42
PROVIDERS: ATTEND Internal Medicine Hematology & Oncology
DX: Z45.2 Encounter for adjustment and management of vascular access device (principal); C18.1 Malignant neoplasm of appendix
CPT/HCPCS: 96523

== ENCOUNTER → 2020-03-20 | Outpatient (CLI) | payer MEDICARE ==
[~2020-03-20] MED LIST changes: +ASPI-1238 PO; -ASPI-983 PO
--- NOTE | 2020-03-20 17:59 | Diagnostic Imaging Report ---
EXAMINATION: CT Chest without contrast. TECHNIQUE: Multiple contiguous axial images were obtained through the chest without the use of intravenous contrast. All CT scans use one or more of the following dose optimizing techniques: automated exposure control, MA and/or KvP adjustment based on a patient size and exam type, or iterative reconstruction. HISTORY: Lung cancer. Shortness of breath. COMPARISON: 04/16/2019. FINDINGS: The heart size is prominent with post-CABG changes noted. No pericardial effusion is present. There is no mediastinal, hilar, or axillary lymphadenopathy. Stable postsurgical changes of left upper lobectomy are visualized. No new pulmonary masses or suspicious nodules. Centrilobular emphysema is present, greatest in the apices. Scarring is noted in the left lung base, similar to the prior exam. No central endobronchial obstructing lesions. There is no pleural effusion or pneumothorax. The osseous structures demonstrate no acute abnormalities. Limited views of the upper abdominal structures demonstrate no acute abnormalities. Both adrenal glands are unremarkable. IMPRESSION: 1. Stable chest with stable postsurgical changes of left upper lobectomy. No new suspicious pulmonary nodules or focal consolidations. No evidence of disease progression. 2. Centrilobular emphysema. 3. Cardiomegaly with post-CABG changes. No evidence of pulmonary edema. Dictated by: Dictated on workstation # [id number]
== END ==
LOC: RAD 13:45
PROVIDERS: ATTEND Nurse Practitioner Family
DX: J43.2 Centrilobular emphysema (principal); I51.7 Cardiomegaly; Z95.1 Presence of aortocoronary bypass graft; Z98.890 Other specified postprocedural states; Z85.118 Personal history of other malignant neoplasm of bronchus and lung; F17.200 Nicotine dependence, unspecified, uncomplicated
CPT/HCPCS: 71250

== ENCOUNTER → 2020-06-15 | Outpatient (CLI) | payer MEDICARE ==
[~2020-06-15] VITALS: Ht 177.8 cm; Wt 100.0 kg
[~2020-06-15] MED LIST changes: +BAMLANIVIMAB 700 MG in NS 200 ML IV ONE; -CLIN300C11 PO; +CLIN300C12 PO; +EPINEPHrine INJECTION 1 MG/ML AMP IM PRN; -MONT10TA26 PO; +MONT10TA97 PO; -NICO-588 TD; +NICO-685 TD; +diphenhydrAMINE 50 MG/ML INJ (BENADRYL) IV PRN
[2020-06-15 08:08] VITALS: BP 80/47
--- NOTE | 2020-06-15 09:16 | NUR ---
bp 92/56, no complications with infusion
[2020-06-15 10:28] VITALS: BP 100/49
== END ==
LOC: INFUSION 08:09
PROVIDERS: ATTEND Nurse Practitioner Family
DX: U07.1 COVID-19 (principal); R09.89 Other specified symptoms and signs involving the circulatory and respiratory systems

== ENCOUNTER → 2020-08-04 | Outpatient (CLI) | payer MEDICAID, MEDICARE ==
[~2020-08-04] MED LIST changes: -BAMLANIVIMAB 700 MG in NS 200 ML IV ONE; -EPINEPHrine INJECTION 1 MG/ML AMP IM PRN; +MONT10TA32 PO; -MONT10TA97 PO; -diphenhydrAMINE 50 MG/ML INJ (BENADRYL) IV PRN
--- NOTE | 2020-08-04 15:51 | Diagnostic Imaging Report ---
EXAMINATION: CT Chest without contrast. TECHNIQUE: Multiple contiguous axial images were obtained through the chest without the use of intravenous contrast. All CT scans use one or more of the following dose optimizing techniques: automated exposure control, MA and/or KvP adjustment based on a patient size and exam type, or iterative reconstruction. HISTORY: History of lung cancer. COMPARISON: CT chest 03/20/2020. FINDINGS: Thyroid: The thyroid is normal. Mediastinum: Heart size is normal without significant pericardial effusion. Calcifications of the aorta and coronary vessels. Thoracic aorta is normal in caliber. No suspicious lymphadenopathy. Lungs and airways: Increasing fibrosis or consolidation along the medial right upper lobe and right hilum. Mild background emphysema. No pleural effusion or pneumothorax. There are multiple new bilateral pulmonary nodules measuring up to 1.3 x 0.5 cm in the right upper lobe. There is a 1.2 x 1.2 cm nodule within the subpleural left lower lobe. Increased scarring or fibrosis along the peripheral left lower lobe. The airways are normal. Upper abdomen: Diffuse hypoattenuation of the liver compatible with hepatic steatosis. Subphrenic structures are otherwise unremarkable. Musculoskeletal: Degenerative changes of the spine without suspicious osseous lesion or compression fracture. Surgical changes from median sternotomy. IMPRESSION: 1. Multiple new bilateral pulmonary nodules measuring up to 1.3 cm on the right and 1.2 cm on the left. These findings are concerning for metastatic disease. 2. Increasing scarring or fibrosis within both lungs. Dictated by: Dictated on workstation # [id number]
== END ==
LOC: RAD 15:45
PROVIDERS: ATTEND Nurse Practitioner Family
DX: R91.8 Other nonspecific abnormal finding of lung field (principal)
CPT/HCPCS: 71250

== ENCOUNTER → 2020-08-22 | Outpatient (CLI) | payer MEDICARE, MEDICAID ==
--- NOTE | 2020-08-22 17:50 | Diagnostic Imaging Report ---
INDICATION: Abnormal chest CT demonstrating multiple bilateral pulmonary nodules. TECHNIQUE: Serum blood glucose level at the time of injection was 125 mg/dL. Patient was administered 15.5 mCi F-18 FDG intravenously in the right antecubital location and PET imaging was performed from the top of the skull to mid thighs. Noncontrast CT was also performed for attenuation correction and anatomic correlation. Correlation is made with prior PET/CT study from 04/05/2014 as well as recent conventional CT chest on 08/04/2020. FINDINGS: There is symmetric activity throughout the brain. Soft tissues of the neck are unremarkable. No mediastinal or hilar hypermetabolism is identified. No definite pulmonary parenchymal hypermetabolism is identified. Specifically, the nodules in the right upper lobe and left lower lobe do not show hypermetabolism however these are fairly small and may be too small for PET threshold detection. Despite that the associated noncontrast CT does demonstrate the nodules to be slightly smaller particularly the cavitary lesion in the left lower lobe when compared with the recent conventional CT chest from 08/04/2020. No new pulmonary masses are identified. Physiologic activity throughout the gastrointestinal and genitourinary tract of the abdomen and pelvis is noted. No suspicious hypermetabolism is seen. IMPRESSION: Unremarkable PET/CT study. Specifically, Pulmonary parenchymal nodules noted on recent CT chest did not show hypermetabolism however these are fairly small and actually appear to be slightly smaller on today's exam. This could conceivably be secondary to an infectious/inflammatory process. Short interval CT chest follow-up in approximately 3 months is recommended to show continued clearing and stability. No suspicious hypermetabolism is identified on today's exam. Dictated by: Dictated on workstation # [id number]
== END ==
LOC: RAD 08-15 10:30
PROVIDERS: ATTEND Nurse Practitioner Family
DX: R91.8 Other nonspecific abnormal finding of lung field (principal)
CPT/HCPCS: 78815; A9552

== ENCOUNTER 2020-11-21 11:01 | Outpatient (RCR) | payer MEDICARE ==
[~2020-11-21 11:01] MED LIST changes: -DRON400T2 PO; +DRON400T6 PO
[2020-11-21 11:56] LABS: BASOPHILS % (AUTO) 1 % (0-10); EOSINOPHILS # (AUTO) 0.1 10^3/uL (0.0-0.3); EOSINOPHILS % (AUTO) 1 % (0-10); HEMATOCRIT 48 % (35-52); HEMOGLOBIN 15.3 g/dL (11.5-16.0); LYMPHOCYTES # (AUTO) 1.3 10^3/uL (1.0-4.0); LYMPHOCYTES % (AUTO) 16 % (12-44); MEAN CORPUSCULAR HEMOGLOBIN 29 pg (25-34); MEAN CORPUSCULAR HGB CONC 32 g/dL (32-36); MEAN CORPUSCULAR VOLUME 92 fL (80-99); MEAN PLATELET VOLUME 9.9 fL (9.0-12.2); MONOCYTES # (AUTO) 0.5 10^3/uL (0.0-1.0); MONOCYTES % (AUTO) 6 % (0-12); NEUTROPHILS # (AUTO) 6.4 10^3/uL (1.8-7.8); NEUTROPHILS % (AUTO) 76 % (42-75); PLATELET COUNT 209 10^3/uL (130-400); WHITE BLOOD COUNT 8.3 10^3/uL (4.3-11.0)
[2020-11-21 12:20] LABS: ALBUMIN 3.9 GM/DL (3.2-4.5); BILIRUBIN,TOTAL 0.6 MG/DL (0.1-1.0); CREATININE SERUM 1.67 MG/DL (0.60-1.30); POTASSIUM 4.6 MMOL/L (3.6-5.0); TOTAL PROTEIN 7.3 GM/DL (6.4-8.2)
[2021-01-05] MEDS ORDERED: INSU200I4 SQ (10:50)
[2021-01-05] MEDS ORDERED: GLUC1AUT2 SQ (10:50)
[2021-01-05] MEDS ORDERED: RT-ALBUINH INH (10:50)
== END 2021-02-19 | disposition home or self-care (01) ==
LOC: ONC 11:01
PROVIDERS: ATTEND Internal Medicine Hematology & Oncology
DX: Z45.2 Encounter for adjustment and management of vascular access device (principal); C18.1 Malignant neoplasm of appendix; C32.1 Malignant neoplasm of supraglottis; C34.12 Malignant neoplasm of upper lobe, left bronchus or lung; I71.4 Abdominal aortic aneurysm, without rupture; I73.9 Peripheral vascular disease, unspecified; E11.22 Type 2 diabetes mellitus with diabetic chronic kidney disease; I13.0 Hypertensive heart and chronic kidney disease with heart failure and stage 1 through stage 4 chronic kidney disease, or unspecified chronic kidney disease; I50.9 Heart failure, unspecified; N18.30 Chronic kidney disease, stage 3 unspecified; D63.1 Anemia in chronic kidney disease; J43.9 Emphysema, unspecified; E78.5 Hyperlipidemia, unspecified; I25.10 Atherosclerotic heart disease of native coronary artery without angina pectoris; F17.200 Nicotine dependence, unspecified, uncomplicated; Z90.2 Acquired absence of lung [part of]; Z92.21 Personal history of antineoplastic chemotherapy; Z92.3 Personal history of irradiation; Z90.49 Acquired absence of other specified parts of digestive tract
CPT/HCPCS: 80053; 84443; 85025; 96523; G0463

== ENCOUNTER → 2020-12-05 | Outpatient (CLI) | payer MEDICARE ==
[2020-12-05 09:51] LABS: CREATININE SERUM 1.27 MG/DL (0.60-1.30)
--- NOTE | 2020-12-05 13:54 | Diagnostic Imaging Report ---
EXAMINATION: CT chest without contrast. TECHNIQUE: Multiple contiguous axial images were obtained through the chest without the use of intravenous contrast. All CT scans use one or more of the following dose optimizing techniques: automated exposure control, MA and/or KvP adjustment based on patient size and exam type or iterative reconstruction. HISTORY: Followup pulmonary nodules. COMPARISON: PET/CT on 08/22/2020. CT chest on 08/04/2020. FINDINGS: The heart size is prominent. No pericardial effusion is present. Left pectoral pacemaker is in place. 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 There is calcified aortic and coronary atherosclerotic plaque without aneurysm. Stable prominent mediastinal lymph nodes with a marker lymph node in the pretracheal space measuring 1.2 cm in short axis. Centrilobular emphysema is present. Interval decrease in size in the dominant nodule in the right upper lobe measuring 1.1 x 0.3 cm, previously measuring 1.3 x 0.5 cm. There is also interval decrease in solid component within this nodule. The additional nodule in the right upper lobe has completely resolved. The nodule in the right middle lobe as resolved. A nodule in the left lung base measures 0.3 cm on today's exam, previously measuring 0.7 cm. A similar size nodule in the left lung base is nearly completely resolved as well. Stable nodule in the right lung base measuring 0.7 cm. There are no focal areas of consolidation. Tree-in-bud opacities are seen in the left midlung. No central endobronchial obstructing lesions are identified. There is no pleural effusion or pneumothorax. The osseous structures demonstrate no acute abnormalities. Limited views of the upper abdominal structures demonstrate no acute abnormalities. Both adrenal glands are unremarkable. IMPRESSION: 1. Interval decrease in size of multiple pulmonary nodules in both lungs. Findings are suggestive of improving inflammatory or infectious process. Recommend continued followup in [address] to ensure continued decrease in size or stability. 2. Tree-in-bud opacities in the left midlung, favored to represent inflammatory or infectious process. No focal consolidations. 3. Stable prominent mediastinal lymph nodes. 4. Stable cardiomegaly. Dictated by: Dictated on workstation # [id number]
== END ==
LOC: RAD 10:15
PROVIDERS: ATTEND Nurse Practitioner Family
DX: R91.8 Other nonspecific abnormal finding of lung field (principal); I51.7 Cardiomegaly
CPT/HCPCS: 36415; 71250; 82565; 84520

== ENCOUNTER 2021-01-04 06:35 | Outpatient (CLI) | payer MEDICARE ==
[~2021-01-04] VITALS: Ht 177.8 cm; Wt 101.2 kg
[2021-01-05] MEDS ORDERED: RT-ALBUINH INH (10:50)
[2021-01-05] MEDS ORDERED: GLUC1AUT2 SQ (10:50)
[2021-01-05] MEDS ORDERED: INSU200I4 SQ (10:50)
== END 2021-01-05 11:01 | disposition home or self-care (01) ==
LOC: PREOP 06:35
PROVIDERS: ATTEND Surgery
DX: Z01.818 Encounter for other preprocedural examination (principal)

== ENCOUNTER 2021-01-11 11:07 | Day surgery (SDC) | payer MEDICARE ==
[~2021-01-11] VITALS: Ht 177.8 cm; Wt 101.2 kg
[~2021-01-11 11:07] MED LIST changes: +FAMOTIDINE 20MG/2ML IV (PEPCID) IVP ONE; +GLUC1AUT2 SQ; +INSU200I4 SQ; +LACTATED RINGERS 1,000 ML IV PRN; +RT-ALBUINH INH; +ceFAZolin 2 GM IV Premixed 50 ML IV ONE
[2021-01-11 11:15] VITALS: BP 134/82
[2021-01-11] MEDS ORDERED: LIDOCAINE/EPI 1%-1:200,000 (XYLOCAINE) 30 ML VIAL ONE (11:31)
[2021-01-11] MEDS ORDERED: LIDOCAINE PF 2% 5 ML (XYLOCAINE) VIAL ONE (11:36)
[2021-01-11] MEDS ORDERED: proPOfol 200 MG/20 ML (DIPRIVAN) VIAL IV ONE (11:36)
[2021-01-11] MEDS ORDERED: KETAMINE SYRINGE 50 MG/5 ML SYRINGE ONE (11:36)
[2021-01-11] MEDS ORDERED: MIDAZOLAM 2 MG/2 ML (VERSED) VIAL ONE (11:36)
[2021-01-11] MEDS ORDERED: morphine INJ 10 MG/ML 1ML (SYR OR VIAL) IVP ONE (11:45)
[2021-01-11] MEDS ORDERED: ONDANSETRON 4 MG/2 ML (SDV) Z0FRAN IVP PRN (11:45)
[2021-01-11] MEDS ORDERED: ONDANSETRON 4 MG/2 ML (SDV) Z0FRAN ONE (11:53)
[2021-01-11] MEDS ORDERED: FAMOTIDINE 20MG/2ML IV (PEPCID) ONE (11:54)
[2021-01-11] MEDS ORDERED: SCOPOLAMINE 1.5 MG (TRANSDERM-SCOP) PATCH ONE (11:54)
[2021-01-11] MEDS ORDERED: ONDANSETRON 4 MG/2 ML (SDV) Z0FRAN IVP ONE (12:00)
[2021-01-11] MEDS ORDERED: SCOPOLAMINE 1.5 MG (TRANSDERM-SCOP) PATCH TD ONE (12:00)
[2021-01-11 12:44] VITALS: BP 113/85
[2021-01-11 12:54] VITALS: BP 96/53
[2021-01-11 13:04] VITALS: BP 95/48
[2021-01-11 13:10] VITALS: BP 107/55
[2021-01-11 13:40] VITALS: BP 138/62
--- NOTE | 2021-01-11 14:38 | Discharge Inst-Simple/Standard ---
Discharge Inst-Standard Patient Instructions/Follow Up Plan of Care/Instructions/FU: 12-14 days for suture removal. 2 weeks Darline Activity as Tolerated: Yes Discharge Diet: Regular Diet Other Inst to Patient Follow up Appt: Make appointment for 2 week Darline. Suture removal in 12-14 days. Instructions: No strenuous activity. May shower in 24 hours, no tub bath or soaking. Use incentive spirometer at home as directed. No Smoking Skin/Wound Care: You have special glue over your incision that will fall off on it's own. Right arm keep clean and dry. Symptoms to Report: Appetite Changes, Extremity Discoloration, Numbness/Tingling, Swelling Increased, Bleeding Excessive, Eyesight Changes, Pain Increased, Urine Color Change, Constipation(Persistent), Fever over 101 degree F, Pain/Pressure in chest, Urinating Difficulty, Cough Up/Vomit Blood, Heart Beat Irreg/Pounding, Pain/Pressure in jaw, Vaginal Bleeding Increase, Cramps in feet or legs, Lightheadedness, Pain/Pressure in shoulder, Diarrhea(Persistent), Memory Changes Suddenly, Questions/Concerns, Weight gain consecutive days, Dizziness/Fainting, Nausea/Vomiting, Shortness of Breath, Weight gain over 2 pounds If questions or concerns contact your physician Or seek help at emergency department. LILYL LEE DO Jan 11, 2021 14:38
--- NOTE | 2021-01-11 18:50 | OPERATIVE REPORT ---
DATE OF SERVICE: 01/11/2021 PREOPERATIVE DIAGNOSIS: Port removal and skin lesion, right upper extremity. POSTOPERATIVE DIAGNOSIS: Port removal and skin lesion, right upper extremity. PROCEDURE: Port removal and excision of right arm lesion 0.6 x 0.5 cm. SURGEON: Lilly Gregorio DO ANESTHESIA: MAC with local. ESTIMATED BLOOD LOSS: Minimal. COMPLICATIONS: None. INDICATIONS: The patient is a 61-year-old female needing port removed. She also has a skin lesion on the right upper extremity, she elected to have it removed. She understands risks and benefits of procedures and wished to proceed with procedures. Consent was signed in the chart. DESCRIPTION OF PROCEDURE: The patient was taken to the operating suite, was prepped and draped in sterile fashion. Surgical pause was performed. Local anesthetic was infiltrated around the port. A 15-blade scalpel was used to make a small skin incision and cautery was used to dissect down through the subcutaneous tissue and grasp the port and remove the catheter in its entirety and the port was removed with it as well. Hemostasis was achieved. The subcutaneous tissues were then reapproximated using 3-0 Vicryl. Skin was then closed using Skin Affix. Right arm then had local anesthetic infiltrated around the lesion. A 15 blade scalpel was used to make an elliptical incision around the lesion 0.6 x 0.5 cm. The skin and subcutaneous tissue was removed. The skin was then closed using 3-0 nylon in a simple running fashion. The area was then washed and dried and sterile bandages were applied. The patient tolerated procedure well without any complications. She was taken to recovery room in stable condition. Job ID: [id number] DocumentID: [id number] Dictated Date: 01/11/2021 15:41:15 Apple Turner Date: 01/11/2021 18:50:00 Dictated By: LILLY GREGORIO DO
== END 2021-01-11 14:55 | disposition home or self-care (01) ==
LOC: SDC 11:07
PROVIDERS: ATTEND Surgery
DX: Z45.2 Encounter for adjustment and management of vascular access device (principal); L57.0 Actinic keratosis; I25.10 Atherosclerotic heart disease of native coronary artery without angina pectoris; E78.5 Hyperlipidemia, unspecified; E11.9 Type 2 diabetes mellitus without complications; E78.00 Pure hypercholesterolemia, unspecified; E07.9 Disorder of thyroid, unspecified; I50.9 Heart failure, unspecified; I11.0 Hypertensive heart disease with heart failure; I48.91 Unspecified atrial fibrillation; J44.9 Chronic obstructive pulmonary disease, unspecified; Z79.890 Hormone replacement therapy; Z79.01 Long term (current) use of anticoagulants; Z95.1 Presence of aortocoronary bypass graft; Z87.891 Personal history of nicotine dependence; Z90.49 Acquired absence of other specified parts of digestive tract; Z85.118 Personal history of other malignant neoplasm of bronchus and lung; Z85.21 Personal history of malignant neoplasm of larynx; Z79.4 Long term (current) use of insulin; Z80.41 Family history of malignant neoplasm of ovary; Z80.1 Family history of malignant neoplasm of trachea, bronchus and lung; Z83.3 Family history of diabetes mellitus; Z80.8 Family history of malignant neoplasm of other organs or systems
CPT/HCPCS: 87081

== ENCOUNTER → 2021-04-19 | Outpatient (CLI) | payer MEDICARE ==
[~2021-04-19] MED LIST changes: +CLIN-144 PO; -CLIN300C12 PO; -FAMOTIDINE 20MG/2ML IV (PEPCID) IVP ONE; -LACTATED RINGERS 1,000 ML IV PRN; -ceFAZolin 2 GM IV Premixed 50 ML IV ONE
--- NOTE | 2021-04-19 09:10 | Diagnostic Imaging Report ---
EXAMINATION: Lumbosacral spine 2 or 3 views HISTORY: ACUTE LEFT SIDED BACK PAIN COMPARISON: None available. FINDINGS: There is a levoconvex scoliosis of the lumbar spine. There is minimal grade 1 retrolisthesis of L3 on L4 with remaining alignment preserved. Vertebral body heights maintained. There is intervertebral space narrowing throughout the entire lumbar spine with associated anterior spurring. Vacuum phenomenon noted at L4-L5 and L5-S1. There is facet hypertrophy throughout the entire lumbar spine. Atherosclerotic disease is noted. IMPRESSION: 1. Multilevel degenerative disease as well scoliotic deformity as described above. Dictated by: Dictated on workstation # [id number]
== END ==
LOC: RAD 08:25
PROVIDERS: ATTEND Family Medicine
DX: M47.816 Spondylosis without myelopathy or radiculopathy, lumbar region (principal); M41.86 Other forms of scoliosis, lumbar region; M48.061 Spinal stenosis, lumbar region without neurogenic claudication
CPT/HCPCS: 72100

== ENCOUNTER → 2021-05-04 | Outpatient (CLI) | payer MEDICARE ==
--- NOTE | 2021-05-04 15:43 | Diagnostic Imaging Report ---
INDICATION: Back pain. TIME OF EXAM: 3:35 PM. FINDINGS: Curvature and alignment of the thoracic spine is normal. Vertebral body heights are maintained. No acute compression fracture is seen. There is multilevel degenerative disc disease with variable disc space narrowing and marginal spurring. Paraspinous line is intact. There are changes of median sternotomy. IMPRESSION: Thoracic spondylosis. No acute bony abnormality is detected. Dictated by: Dictated on workstation # [id number]
--- NOTE | 2021-05-04 16:09 | Diagnostic Imaging Report ---
INDICATION: Neck pain. COMPARISON: 11/14/2019. FINDINGS: Frontal, lateral, and open-mouth radiographic views of the cervical spine were obtained. Evaluation with static alignment shows straightening with slight reversal of normal lordotic curvature. There is however no significant anterolisthesis or retrolisthesis. There is no evidence of jumped facets. Open-mouth view shows normal C1-C2 alignment. Vertebral body heights are maintained. There is no acute fracture. There are advanced multilevel degenerative changes of the cervical spine, consisting primarily of intervertebral disc height loss with large anterior and posterior endplate osteophyte formations. These changes appear greatest at the C4-C5 through C6-C7 levels. No unexpected radiopaque foreign bodies are identified. IMPRESSION: 1. No acute fracture or dislocation of the cervical spine. 2. Advanced multilevel degenerative changes. Dictated by: Dictated on workstation # [id number]
== END ==
LOC: RAD 15:18
PROVIDERS: ATTEND Family Medicine
DX: M47.812 Spondylosis without myelopathy or radiculopathy, cervical region (principal); M47.814 Spondylosis without myelopathy or radiculopathy, thoracic region
CPT/HCPCS: 72040; 72070

== ENCOUNTER 2021-08-20 19:18 | Emergency (ER) | payer MEDICARE ==
[~2021-08-20] VITALS: Ht 175.2 cm; Wt 107.0 kg
[~2021-08-20 19:18] MED LIST changes: +FLUC100T10 PO; -FLUC100T6 PO; +MONT-40 PO; -MONT10TA32 PO; +POTA-160 PO; -POTA10TA6 PO
[2021-08-20] MEDS ORDERED: ASPIRIN 81 MG CHEW (CHILDREN'S ASA) PO ONE (19:30)
[2021-08-20] MEDS ORDERED: dilTIAZem DRIP PRE-MIX 125 ML IV SCH (19:45)
[2021-08-20 19:49] LABS: BASOPHILS % (AUTO) 1 % (0-10); EOSINOPHILS # (AUTO) 0.1 10^3/uL (0.0-0.3); EOSINOPHILS % (AUTO) 2 % (0-10); HEMATOCRIT 45 % (35-52); HEMOGLOBIN 14.1 g/dL (11.5-16.0); LYMPHOCYTES # (AUTO) 1.4 10^3/uL (1.0-4.0); LYMPHOCYTES % (AUTO) 17 % (12-44); MEAN CORPUSCULAR HEMOGLOBIN 29 pg (25-34); MEAN CORPUSCULAR HGB CONC 31 g/dL (32-36); MEAN CORPUSCULAR VOLUME 91 fL (80-99); MEAN PLATELET VOLUME 10.2 fL (9.0-12.2); MONOCYTES # (AUTO) 0.7 10^3/uL (0.0-1.0); MONOCYTES % (AUTO) 9 % (0-12); NEUTROPHILS # (AUTO) 5.9 10^3/uL (1.8-7.8); NEUTROPHILS % (AUTO) 71 % (42-75); PLATELET COUNT 183 10^3/uL (130-400); WHITE BLOOD COUNT 8.3 10^3/uL (4.3-11.0)
[2021-08-20 19:56] LABS: INR 1.1 (0.8-1.4); PROTHROMBIN TIME PATIENT 14.3 SEC (12.2-14.7)
--- NOTE | 2021-08-20 20:08 | Diagnostic Imaging Report ---
INDICATION: Chest pain AP view of the chest is obtained with comparison made to study of 11/15/2019 There is mild cardiomegaly. There is also mild pulmonary venous congestion. There is mild increased interstitial and alveolar densities in the lung bases, greater on the right. No pneumothorax is seen. There is no evidence of significant pleural fluid. IMPRESSION: Cardiomegaly and pulmonary venous congestion may be related to congestive heart failure with mild basilar edema and/or pneumonitis. Dictated by: Dictated on workstation # [id number]
[2021-08-20 20:10] LABS: ALBUMIN 3.9 GM/DL (3.2-4.5); BILIRUBIN,TOTAL 0.4 MG/DL (0.1-1.0); CALCIUM 9.2 MG/DL (8.5-10.1); CREATININE SERUM 1.41 MG/DL (0.60-1.30); MAGNESIUM 1.6 MG/DL (1.6-2.4); POTASSIUM 4.2 MMOL/L (3.6-5.0)
[2021-08-20 20:15] LABS: BILIRUBIN,URINE NEGATIVE (NEGATIVE); CLARITY,URINE CLEAR; COLOR,URINE YELLOW; GLUCOSE, URINE (UA) NEGATIVE (NEGATIVE); KETONES,URINE NEGATIVE (NEGATIVE); LEUKOCYTE ESTERASE ,URINE TRACE (NEGATIVE); NITRITE,URINE NEGATIVE (NEGATIVE); PH,URINE 5.5 (5-9); PROTEIN,URINE 1+ (NEGATIVE)
[2021-08-20 20:23] LABS: BACTERIA,URINE NEGATIVE /HPF
[2021-08-20 20:24] LABS: CREATINE KINASE MB 6.8 NG/ML (<6.6)
[2021-08-20 20:32] LABS: TSH (THYROID ANALYZER) 4.78 UIU/ML (0.35-4.94)
[2021-08-20] MEDS ORDERED: NS IV 1000 ML 1,000 ML IV SCH (20:45)
[2021-08-20] MEDS ORDERED: CATHETER FLUSH 10 ML SYR IV PRN (21:00)
[2021-08-20] MEDS ORDERED: HOLD METFORMIN - RECEIVED CONTRAST 20 ML VIAL IV SCH (21:00)
[2021-08-20] MEDS ORDERED: IOHEXOL 350 MG/ML 100 ML (OMNIPAQUE 350) VIAL IV ONE (21:00)
--- NOTE | 2021-08-20 21:00 | ED Cardiac General ---
History of Present Illness General Chief Complaint: Respiratory Problems Stated Complaint: RAPID HEART RATE - SOA Nursing Triage Note: pt ambulatory to room. pt states she has been short of breath and feels like her heart has been racing. pt states this has been going on for weeks. pt states she had a regular check up today at her family doctor and was told to come to the ER Source: patient History of Present Illness Date Seen by Provider: Aug 20, 2021 Time Seen by Provider: 19:22 Initial Comments PT ARRIVES VIA POV FROM HOME PT WAS SEEN EARLIER THIS AFTERNOON AT [facility] AND WAS TOLD TO COME HERE HOURS AGO, BUT WENT HOME, AND THEN COMES IN TO ER TONIGHT C/O SHORTNESS OF BREATH--ESPECIALLY WITH MINIMAL EXERTION, WELL EVEN WITH TALKING, ALSO HAS ORTHOPNEA ALSO C/O ELEVATED HEART RATE IN THE 130'S. THESE SYMPTOMS HAVE BEEN GOING ON FOR SEVERAL WEEKS AND ARE NO DIFFERENT TODAY, AND HAS NOT SOUGHT CARE UNTIL TODAY STATES SHE CALLED [facility] LAST WEEK TO MAKE A ROUTINE APPOINTMENT AT [facility], STATES SHE DID NOT TELL THEM SHE WAS HAVING THESE SYMPTOMS WHEN SHE MADE THE A PPOINTMENT NO CHEST PAIN HAS HAD INCREASED SWELLING IN BOTH OF HER LEGS FOR THE LAST SEVERAL WEEKS NO FEVER/SWEATS/CHILLS NO NAUSEA/VOMITING PT STATES SHE HAS COPD ,BUT DOES NOT WEAR HOME O2 AND HAS NOT USED INHALER/NEBULIZER TODAY OR RECENTLY PT ALSO HAS HISTORY OF CAD WITH 4 VESESL CABG IN 2011 PT HAS CHRONIC ATRIAL FIBRILLATION AND IS ON ELIQUIS AND MULTAQ, WELL OTHER MEDICATIONS FOR HEART. PT CONTINUES TO SMOKE 1 PPD PT HAS HAD COVID-19 VACCINE X 3 PCP: [facility], DR. FUENTES Allergies and Home Medications Allergies Coded Allergies: enalaprilat (Verified Allergy, Severe, anaphylactic, 08/06/18) codeine (Unverified Allergy, Mild, GI UPSET, 08/06/18) haloperidol (Unverified Allergy, Mild, NAUSEA, 08/06/18) Patient Home Medication List Home Medication List Reviewed: Yes Albuterol Sulfate (Ventolin Hfa) 1 Puff Puff, 2 PUFF INH Q4H, (Reported) Entered as Reported by: YUDITH LIRA on 01/05/21 1050 Alprazolam (Xanax) 0.25 Mg Tablet, 0.25 MG PO DAILY PRN for ANXIETY, (Reported) Entered as Reported by: MARCO A ROSS on 11/02/15 1452 Apixaban (Eliquis) 5 Mg Tablet, 5 MG PO BID, (Reported) Entered as Reported by: MARCO A ROSS on 07/30/18 1008 Atorvastatin Calcium (Atorvastatin Calcium) 80 Mg Tablet, 40 MG PO HS, (Reported) Entered as Reported by: KIEL PHILLIPS on 07/30/18 1530 Dronedarone HCl (Multaq) 400 Mg Tablet, 400 MG PO BID, (Reported) Entered as Reported by: MARCO A ROSS on 07/30/18 1008 Ferrous Sulfate (Ferosul) 325 Mg Tablet, 325 MG PO DAILY, (Reported) Entered as Reported by: TAMRA HIGUERA on 05/27/18 0950 Furosemide (Furosemide) 40 Mg Tablet, 40 MG PO DAILY PRN for SWELLING Prescribed by: MAIK AMAYA on 07/29/19 1155 Glucagon (Gvoke Hypopen 2-Pack) 1 Mg/0.2 Ml Auto.injct, 1 MG SQ UD, (Reported) Entered as Reported by: YUDITH LIRA on 01/05/21 1050 Insulin Degludec (Tresiba Flextouch U-200) 200 Unit/1 Ml Insuln.pen, 95 UNIT SQ HS, (Reported) Entered as Reported by: YUDITH LIRA on 01/05/21 1050 Insulin Lispro (Humalog Kwikpen) 100 Unit/1 Ml Insuln.pen, 25 UNIT SQ TIDAC Prescribed by: MAIK AMAYA on 07/29/19 1155 Ipratropium/Albuterol Sulfate (Iprat-Albut 0.5-3(2.5) mg/3 ml) 3 Ml Ampul.neb, 3 ML INH RTQ6HR Prescribed by: MAIK AMAYA on 07/29/19 1116 Levothyroxine Sodium (Levothyroxine Sodium) 88 Mcg Tablet, 88 MCG PO DAILY, (Reported) Entered as Reported by: TAMRA HIGUERA on 05/27/18 0950 Losartan Potassium (Losartan Potassium) 100 Mg Tablet, 100 MG PO DAILY Prescribed by: MAIK AMAYA on 07/29/19 1116 Metoprolol Tartrate (Metoprolol Tartrate) 25 Mg Tablet, 25 MG PO BID, (Reported) Entered as Reported by: LINDA LARA on 07/26/19 1042 Montelukast Sodium (Montelukast Sodium) 10 Mg Tablet, 10 MG PO HS, (Reported) Entered as Reported by: TAMRA HIGUERA on 07/03/16 0910 Olodaterol HCl (Striverdi Respimat) 4 Gm Mist.inhal, 4 GM IH BID, (Reported) Entered as Reported by: ASH GEORGE on 11/10/19 0759 [place]-3 Fatty Acids/Fish Oil (Fish Oil 1,200 mg Softgel) 1 Each Capsule, 2,400 MG PO DAILY, (Reported) Entered as Reported by: MARCO A ROSS on 07/06/15 1655 Omeprazole (Omeprazole) 20 Mg Capsule.dr, 20 MG PO DAILY, (Reported) Entered as Reported by: KIEL PHILLIPS on 07/14/17 1352 Potassium Chloride (Potassium Chloride) 10 Meq Capsule.er, 10 MEQ PO DAILY PRN, (Reported) Entered as Reported by: ASH GEORGE on 11/10/19 0759 Review of Systems Review of Systems Constitutional: no symptoms reported; No chills, No fever EENTM: No Symptoms Reported Respiratory: See HPI, Orthopnea, Shortness of Air, SOA With Exertion, SOA at Rest Cardiovascular: See HPI; Denies Chest Pain; Edema, Irregular Heart Rate; Denies Lightheadedness; Palpitations; Denies Syncope Gastrointestinal: No Symptoms Reported; Denies Abdominal Pain, Denies Nausea, Denies Vomiting Genitourinary: No Symptoms Reported Musculoskeletal: see HPI (LEG SWELLING), joint pain Psychiatric/Neurological: No Symptoms Reported Endocrine: No Symptoms Reported Hematologic/Lymphatic: No Symptoms Reported Past Fulkqtq-Xnoajc-Cwxccy Hx Patient Social History Tobacco Use?: Yes (1 PPD) Tobacco type used: Cigarettes Smoking Status: Current Everyday Smoker Substance use?: No Alcohol Use?: No Pt feels they are or have been: No Immunizations Up To Date Tetanus Booster (TDap): Unknown PED Vaccines UTD: No Influenza Vaccine Up-to-Date: Yes; Up-to-Date Seasonal Allergies Seasonal Allergies: Yes Past Medical History Surgeries: Yes (THROAT BX, PEG TUBE PLACEMENT AND REMOVAL, POWER PORT, PARTIAL LUNG, ) Bowel Surgery, CABG, Gallbladder Respiratory: Yes (HX LUNG CA, can't tolerate cpap if needed post op use bipap, OXYGEN NC5L HS) COPD, Emphysema Currently Using CPAP: No Currently Using BIPAP: No Cardiac: Yes (CABG, HX OF HEART ATTACK X2, QUAD BYPASS, CHF) Atrial Fibrillation, Chronic Edema/Swelling, Coronary Artery Disease, High Cholesterol, Hypertension Neurological: No 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 Sexually Transmitted Disease: No HIV/AIDS: No Genitourinary: Yes (NO DIALYSIS OR CHIEF MINISTER) Renal Failure Gastrointestinal: Yes (FEEDING TUBE- REMOVED 04/13/14, adenoma of colon) Gastroesophageal Reflux, Pancreatitis, Polyps Musculoskeletal: Yes Degenerate Disk Disease, Arthritis, Chronic Back Pain Endocrine: Yes Diabetes, Insulin dep, Hypothyroidsim HEENT: No Loss of Vision: Bilateral Hearing Impairment: Denies Cancer: Yes (THROAT, LUNG, COLON) Lung, Colon Did You Recieve Any Treatments: Yes What Type of Treatment Did You: Chemotherapy, Radiation, Surgical Intervention LEFT LUNG CANCER AND HAD LEFT PARTIAL PNEUMONECTOMY BY DR. JESSICA AT [facility] IN 2015. SHE DID NOT RECEIVE CHEMO OR RADIATION. SHE WAS SEEING DR. STEVE FOR ONCOLOGY, BUT HAS NOT SEEN HIM IN A YEAR, PER PT ON 08/20/21. 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 MAI, WAS TREATED WITH CHEMO AND RADIATION. HAS NOT FOLLOWED UP WITH DR. MAI SINCE THEN THEN DEVELOPED LUNG CANCER IN 2016--TREATED WITH SURGERY ONLY. THEN HAD COLON CANCER AND HAD COLON RESE[place] [address] LEE. TREATED WITH SURGERY ONLY. PT HAS NOT HAD COLONOSCOPY SINCE SURGERY. HAS NOT HAD A PET SCAN SINCE 08/22/2020 HAS NOT HAD ANY OTHER CANCER FOLLOW UP WITH ANYONE SINCE THEN. Psychosocial: Yes Anxiety Integumentary: No Blood Disorders: No (ANEMIA) Adverse Reaction/Blood Tranf: No (N/A) Family Medical History CHF 19 MOTHER Cardiovascular disease 19 FATHER 19 MOTHER FH: lung cancer 19 FATHER UTERINE CANCER 19 MOTHER No Pertinent Family Hx PAST SURGICAL HISTORY: -2006--CHOLECYSTECTOMY BY DR. SHERMAN -09/2011--CARDIAC CATH BY DR. TAYLOR FOR NSTEMI--SEVERE MULTIVESSEL DISEASE AND TRANSFERRED TO [facility], HAD 4-VESSEL CABG BY DR. JESSICA -09/2013--THROAT BIOPSY, DX WITH SQUAMOUS CELL CANCER OF EPIGLOTTIS. LEFT PORT PLACED, AND FEEDING TUBE PLACED BY DR. LEE -04/2014--BIOPSY OF EPIGLOTTIS LESION BY DR. MAI -2015--LEFT PARTIAL PNEUMONECTOMY BY DR. JESSICA AT [facility] -06/2015--COLONOSCOPY WITH BIOPIES AND MULTIPLE POLYPECTOMIES BY DR. LEE -10/2015--COLONOSCOPY WITH POLYPECTOMIES BY DR. LEE; ALSO HAD REMOVAL OF LIPOMA FROM BACK, AND REMOVAL OF SKIN LESIONS FROM BOTH LEGS -06/2016--CYST REMOVED FROM CHEST BY DR. LEE -05/2018--EGD AND COLONOSCOPY WITH BIOPSIES AND MULTIPLE POLYPECTOMIES BY DR. LEE -07/2017--RIGHT PARTIAL COLECTOMY FOR MALIGNANT CECAL MASS BY DR. LEE -11/10/19--CARDIAC CATH BY DR. TAYLOR: CONCLUSION: 1. Severe [place] coronary artery disease with patent HADLEY to LAD, patent large vein graft to second obtuse marginal branch filling the circumflex system, occluded vein graft to the first obtuse marginal branch and diffuse ectasia in the vein graft to the right PDA with slow flow due to small vessel disease 2. Normal left ventricular end-diastolic pressure 3. Moderate to large size right common iliac artery aneurysm 4. Moderate diffuse disease in the right SFA with pressure gradient of 40 mmHg between the proximal and distal portion 5. Occluded right anterior tibial artery that is not receiving sufficient collaterals, very small artery 6. Diffuse disease at the left SFA and left anterior and posterior tibial arteries DISCUSSION AND RECOMMENDATION: Maximizing medical therapy and referral to vascular surgery for evaluation -01/11/21--PORT REMOVED BY DR. LEE. ALSO HAD REMOVAL OF SKIN LESION ON RIGHT ARM. Physical Exam Vital Signs Vital Signs - First Documented 08/20/21 08/20/21 19:20 23:26 Temp 36.8 Pulse 126 Resp 24 B/P (MAP) 128/93 Pulse Ox 96 O2 Delivery Nasal Cannula O2 Flow Rate 2.00 Capillary Refill : Height, Weight, BMI Height: 5'10.00" Weight: 208lbs. 0.0oz. 94.422858pm; 34.00 BMI Method:Stated General Appearance: Moderate Distress (PT IS VERY DYSPNEIC ON ARRIVAL, TALKS IN 1-3 WORD PHRASES. 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 Norm as Tested Skin: Normal Color, Warm/Dry Progress/Results/Core Measures Results/Orders Lab Results Laboratory Tests Test 08/20/21 19:30 08/20/21 19:49 08/20/21 20:05 Range/Units White Blood Count 8.3 4.3-11.0 10^3/uL Red Blood Count 4.92 3.80-5.11 10^6/uL Hemoglobin 14.1 11.5-16.0 g/dL Hematocrit 45 35-52 % Mean Corpuscular Volume 91 80-99 fL Mean Corpuscular Hemoglobin 29 25-34 pg Mean Corpuscular Hemoglobin Concent 31 L 32-36 g/dL Red Cell Distribution Width 13.9 10.0-14.5 % Platelet Count 183 130-400 10^3/uL Mean Platelet Volume 10.2 9.0-12.2 fL Immature Granulocyte % (Auto) 1 % Neutrophils (%) (Auto) 71 42-75 % Lymphocytes (%) (Auto) 17 12-44 % Monocytes (%) (Auto) 9 0-12 % Eosinophils (%) (Auto) 2 0-10 % Basophils (%) (Auto) 1 0-10 % Neutrophils # (Auto) 5.9 1.8-7.8 10^3/uL Lymphocytes # (Auto) 1.4 1.0-4.0 10^3/uL Monocytes # (Auto) 0.7 0.0-1.0 10^3/uL Eosinophils # (Auto) 0.1 0.0-0.3 10^3/uL Basophils # (Auto) 0.0 0.0-0.1 10^3/uL Immature Granulocyte # (Auto) 0.0 0.0-0.1 10^3/uL Prothrombin Time 14.3 12.2-14.7 SEC INR Comment 1.1 0.8-1.4 Activated Partial Thromboplast Time 36 H 24-35 SEC D-Dimer 1.50 H 0.00-0.49 UG/ML Sodium Level 140 135-145 MMOL/L Potassium Level 4.2 3.6-5.0 MMOL/L Chloride Level 105 98-107 MMOL/L Carbon Dioxide Level 23 21-32 MMOL/L Anion Gap 12 5-14 MMOL/L Blood Urea Nitrogen 20 H 7-18 MG/DL Creatinine 1.41 H 0.60-1.30 MG/DL Estimat Glomerular Filtration Rate 42 BUN/Creatinine Ratio 14 Glucose Level 200 H 70-105 MG/DL Calcium Level 9.2 8.5-10.1 MG/DL Corrected Calcium 9.3 8.5-10.1 MG/DL Magnesium Level 1.6 1.6-2.4 MG/DL Total Bilirubin 0.4 0.1-1.0 MG/DL Aspartate Amino Transf (AST/SGOT) 34 5-34 U/L Alanine Aminotransferase (ALT/SGPT) 21 0-55 U/L Alkaline Phosphatase 57 40-136 U/L Total Creatine Kinase 260 H 29-168 U/L Creatine Kinase MB 6.8 *H <6.6 NG/ML Myoglobin 115.9 H 10.0-92.0 NG/ML Troponin I < 0.028 <0.028 NG/ML B-Type Natriuretic Peptide 130.8 H <100.0 PG/ML Total Protein 7.0 6.4-8.2 GM/DL Albumin 3.9 3.2-4.5 GM/DL Amylase Level 32 25-125 U/L Lipase 35 8-78 U/L TSH [place] Testing 4.78 0.35-4.94 UIU/ML Influenza Type A (RT-PCR) Not Detected Not Detecte Influenza Type B (RT-PCR) Not Detected Not Detecte SARS-CoV-2 RNA (RT-PCR) Not Detected Not Detecte Urine Color YELLOW Urine Clarity CLEAR Urine pH 5.5 5-9 Urine Specific [place] 1.015 L 1.016-1.022 Urine Protein 1+ H NEGATIVE Urine Glucose (UA) NEGATIVE NEGATIVE Urine Ketones NEGATIVE NEGATIVE Urine Nitrite NEGATIVE NEGATIVE Urine Bilirubin NEGATIVE NEGATIVE Urine Urobilinogen 0.2 < = 1.0 MG/DL Urine Leukocyte Esterase TRACE H NEGATIVE Urine RBC (Auto) TRACE-I H NEGATIVE Urine RBC NONE /HPF Urine WBC 2-5 /HPF Urine Squamous Epithelial Cells NONE /HPF Urine Renal Epithelial Cells NONE /HPF Urine Crystals NONE /LPF Urine Bacteria NEGATIVE /HPF Urine Casts NONE /LPF Urine Mucus NEGATIVE /LPF Urine Culture Indicated NO My Orders Orders - BUDDY DAWN DO Ed Iv/Invasive Line Start (08/20/21 19:26) Ekg Tracing (08/20/21:) O2 (08/20/21:) Monitor-Rhythm Ecg Trace Only (08/20/21:) Cbc With Automated Diff (08/20/21:) Magnesium (08/20/21:) Chest 1 View, Ap/Pa Only (08/20/21:) Ekg Tracing (08/20/21:) Comprehensive Metabolic Panel (08/20/21:) Myoglobin Serum (08/20/21:) Protime With Inr (08/20/21:) Partial Thromboplastin Time (08/20/21:) O2 (08/20/21:26) Ed Iv/Invasive Line Start (08/20/21:) Creatine Kinase (08/20/21:) Creatine Kinase Mb (08/20/21:) Lipase (08/20/21:) Amylase (08/20/21:) Bnp David (08/20/21:) Fibrin Degradation Products (08/20/21:) Troponin I [place] (08/20/21:) Aspirin Chewable Tablet (Baby Aspirin Ch (08/20/21 19:30) Thyroid Analyzer (08/20/21:) Ua Culture If Indicated (08/20/21:26) Covid 19 Inhouse Test (08/20/21 19:26) Influenza A And B By Pcr (08/20/21 19:26) Isolation Central Supply Req (08/20/21 19:26) Diltiazem Injection (Cardizem Injection) (08/20/21 19:45) Diltiazem Drip Pre-Mix (Cardizem Drip Pr (08/20/21 19:45) Ed Iv/Invasive Line Start (08/20/21 20:36) Ns Iv 1000 Ml (Sodium Chloride 0.9%) (08/20/21 20:45) Ct Angio Chest W (08/20/21 20:36) Ekg Tracing (08/20/21 20:38) Iohexol Injection (Omnipaque 350 Mg/Ml 1 (08/20/21 21:00) Received Contrast (Hold Metformin- Contr (08/20/21 21:00) Sodium Chloride Flush (Catheter Flush Sy (08/20/21 21:00) Medications Given in ED Current Medications Medications Dose Ordered Sig/Addis Route Start Time Stop Time Status Last Admin Dose Admin Aspirin 324 mg ONCE ONCE PO 08/20/21 19:30 08/20/21 19:31 DC 08/20/21 19:45 324 MG Diltiazem HCl 10 mg ONCE ONCE IVP 08/20/21 19:45 08/20/21 19:46 DC 08/20/21 19:44 10 MG Iohexol 100 ml ONCE ONCE IV 08/20/21 21:00 08/20/21 21:01 DC 08/20/21 21:34 83 ML Vital Signs/I&O 08/20/21 08/20/21 08/20/21 19:20 19:25 23:26 Temp 36.8 Pulse 126 88 Resp 24 28 B/P (MAP) 128/93 Pulse Ox 96 97 95 O2 Delivery Nasal Cannula Nasal Cannula Room Air O2 Flow Rate 2.00 2.00 Progress Progress Note : Progress Note GIVEN ASPIRIN AND CARDIZEM AND PLACED ON CARDIZEM BOLUS--HEART RATE DOWN TO LESS THAN 100, BP DOWN INITIAL O2 SAT 92% ON ROOM AIR--UP TO 96% ON 2L / NC DYSPNEA IMPROVED WITH REST AND O2 2210--ON REVIEWING CT REPORT WITH PT, SHE JUST NOW INFORMS ME THAT SHE HAS HAD LUNG CANCER AND HAD LEFT PARTIAL PNEUMONECTOMY BY DR. JESSICA AT [facility] IN 2016. SHE DID NOT RECEIVE CHEMO OR RADIATION. SHE WAS SEEING DR. STEVE FOR ONCOLOGY, BUT HAS NOT SEEN HIM IN A YEAR. SHE ALSO NOW REPORTS THAT SHE HAD THROAT CANCER IN 2013, HAD BIOPSY DONE BY DR. MAI, WAS TREATED WITH CHEMO AND RADIATION. HAS NOT FOLLOWED UP WITH DR. MAI SINCE THEN THEN DEVELOPED LUNG CANCER IN 2016--TREATED WITH SURGERY ONLY. THEN HAD COLON CANCER AND HAD COLON RESECTION [place] [address] LEE. TREATED WITH SURGERY ONLY. PT HAS NOT HAD COLONOSCOPY SINCE SURGERY. HAS NOT HAD A PET SCAN SINCE 08/22/2020 HAS NOT HAD ANY OTHER CANCER FOLLOW UP SINCE THEN. HAVE ADVISED THAT PT BE TRANSFERRED TO A FACILITY FOR HIGHER LEVEL OF CARE, DUE TO CT FINDINGS AND HER SYMPTOMS 2229--PT NOW IS REFUSING TO BE TRANSFERRED ANYWHERE OR STAY IN THE HOSPITAL AT ALL. STATES SHE JUST WANTS TO GO HOME AND SLEEP IN HER OWN BED. THIS WAS HIGHLY DISCOURAGED. PT CONTINUED TO REFUSE TO BE ADMITTED OR TRANSFERRED AND SIGNED OUT AMA. RISKS/BENEFITS REVIEWED. Initial ECG Impression Date: Aug 20, 2021 Initial ECG Impression Time: 19:39 Initial ECG Rate: 126 Initial ECG Impression: Atrial Fibrillation w/RVR EKG : EKG Time: 20:42 Rate: 94 Rhythm: A Fib/Flutter Diagnostic Imaging Comments CXR--PER RADIOLOGIST REPORT CTA CHEST--PER RADIOLOGIST REPORT AT 2207 There is good opacification of the pulmonary arteries. The main pulmonary artery is widely patent. There is no evidence of filling defect within the pulmonary arteries in the left hemithorax. There is marked stenosis of right upper and middle lobe pulmonary arterial branches related to extrinsic mass effect without evidence of intraluminal filling defect to indicate embolism. There is an approximately 3.4 x 3.5 cm mass in the right hilum responsible for pulmonary arterial stenoses. There is an approximately 2.5 x 4.5 cm spiculated mass in the upper lobe of the right lung adjacent to the hilum with multiple enlarged lymph nodes in the mediastinum anterior to the trachea measuring up to 3.3 x 4.0 cm. There is background emphysema. There is mild pleural thickening on the left however no additional mass or infiltrate is seen within the lungs. There is no significant pleural or pericardial effusion. There is mild enlargement of the left adrenal gland of uncertain significance. IMPRESSION: Right upper lobe pulmonary mass is highly suspicious for malignancy with extensive right hilar and mediastinal adenopathy which does result in significant narrowing of the . No pulmonary embolism is identified. Right middle and lower lobe pulmonary arterial branches Reviewed: Reviewed by Me Departure Communication (Admissions) 2214--CALLED [facility] ( PT'S PREFERENCE) , MESSAGE LEFT. PT'S IMAGES HAVE BEEN CLOUDED TO [facility]249--[facility] CALLED BACK, UPDATED THEM THAT PT WAS SIGNING OUT AMA. DID UPDATE THEM ON DIAGNOSIS AND INFORMED THEM THAT PT'S IMAGES HAD BEEN CLOUDED TO THEIR FACILITY, IF PT HAPPENS TO GO THERE ON HER OWN AT SOME POINT. Impression Primary Impression: Atrial fibrillation with rapid ventricular response Additional Impressions: COPD (chronic obstructive pulmonary disease) CAD WITH HISTORY OF CABG IDDM (insulin dependent diabetes mellitus) Mass of right lung History of lung cancer History of throat cancer History of colon cancer OBSTRUCTIVE MASS RIGHT LUNG Left against medical advice Insulin dependent diabetes mellitus Hypoxia Disposition: 07 AGAINST MEDICAL ADVICE Condition: Against Medical Advice Departure-Patient Inst. Referrals: HUNTER FUENTES MD (PCP/Family) Primary Care Physician BUDDY DAWN DO Aug 20, 2021 21:00
--- NOTE | 2021-08-20 22:05 | Diagnostic Imaging Report ---
PROCEDURE: CT angiography of the chest with contrast. TECHNIQUE: Multiple contiguous axial images were obtained through the chest after uneventful bolus administration of intravenous contrast. 3D reconstructed CTA MIP acquisitions were also performed. Auto Exposure Controls were utilized during the CT exam to meet ALARA standards for radiation dose reduction. INDICATION: High probability for pulmonary embolism with chest pain. There is good opacification of the pulmonary arteries. The main pulmonary artery is widely patent. There is no evidence of filling defect within the pulmonary arteries in the left hemithorax. There is marked stenosis of right upper and middle lobe pulmonary arterial branches related to extrinsic mass effect without evidence of intraluminal filling defect to indicate embolism. There is an approximately 3.4 x 3.5 cm mass in the right hilum responsible for pulmonary arterial stenoses. There is an approximately 2.5 x 4.5 cm spiculated mass in the upper lobe of the right lung adjacent to the hilum with multiple enlarged lymph nodes in the mediastinum anterior to the trachea measuring up to 3.3 x 4.0 cm. There is background emphysema. There is mild pleural thickening on the left however no additional mass or infiltrate is seen within the lungs. There is no significant pleural or pericardial effusion. There is mild enlargement of the left adrenal gland of uncertain significance. IMPRESSION: Right upper lobe pulmonary mass is highly suspicious for malignancy with extensive right hilar and mediastinal adenopathy which does result in significant narrowing of right middle and lower pulmonary arterial branches. No pulmonary embolism is identified. Dictated by: Dictated on workstation # [id number]
[2021-08-20 23:26] VITALS: BP 128/93
== END 2021-08-20 23:22 | disposition left against medical advice (07) ==
LOC: EDUNIT# 19:18 → ER 19:20
DX: I48.20 Chronic atrial fibrillation, unspecified (principal); I25.10 Atherosclerotic heart disease of native coronary artery without angina pectoris; E11.9 Type 2 diabetes mellitus without complications; R91.8 Other nonspecific abnormal finding of lung field; R09.02 Hypoxemia; J44.9 Chronic obstructive pulmonary disease, unspecified; I25.810 Atherosclerosis of coronary artery bypass graft(s) without angina pectoris; I11.0 Hypertensive heart disease with heart failure; Z20.822 Contact with and (suspected) exposure to COVID-19; I50.9 Heart failure, unspecified; F17.210 Nicotine dependence, cigarettes, uncomplicated; H54.3 Unqualified visual loss, both eyes; Z85.118 Personal history of other malignant neoplasm of bronchus and lung; Z85.038 Personal history of other malignant neoplasm of large intestine; Z79.01 Long term (current) use of anticoagulants; Z79.4 Long term (current) use of insulin; Z85.21 Personal history of malignant neoplasm of larynx; Z95.1 Presence of aortocoronary bypass graft; I25.2 Old myocardial infarction; Z88.5 Allergy status to narcotic agent; Z88.8 Allergy status to other drugs, medicaments and biological substances; Z80.1 Family history of malignant neoplasm of trachea, bronchus and lung; Z82.49 Family history of ischemic heart disease and other diseases of the circulatory system; Z90.49 Acquired absence of other specified parts of digestive tract; Z90.2 Acquired absence of lung [part of]
CPT/HCPCS: 36415; 71045; 71275; 80053; 81000; 82150; 82550; 82553; 83690; 83735; 83874; 83880; 84443; 84484; 85025; 85379; 85610; 85730; 87636; 93005; 93041

== ENCOUNTER 2021-08-22 09:17 | Outpatient (RCR) | payer MEDICARE | END 2021-08-30 10:25 | disposition home or self-care (01) | LOC: ONC 09:17 | PROVIDERS: ATTEND Internal Medicine Hematology & Oncology | DX: C34.12 Malignant neoplasm of upper lobe, left bronchus or lung (principal); E11.22 Type 2 diabetes mellitus with diabetic chronic kidney disease; I13.0 Hypertensive heart and chronic kidney disease with heart failure and stage 1 through stage 4 chronic kidney disease, or unspecified chronic kidney disease; I50.9 Heart failure, unspecified; N18.30 Chronic kidney disease, stage 3 unspecified; I25.10 Atherosclerotic heart disease of native coronary artery without angina pectoris; E78.5 Hyperlipidemia, unspecified; J43.9 Emphysema, unspecified | CPT/HCPCS: 99213 ==

== ENCOUNTER 2021-09-10 08:43 | Outpatient (CLI) | payer MEDICARE ==
[2021-09-10] VITALS (14 sets, daily range): BP systolic 119–159; BP diastolic 78–123
[~2021-09-10] VITALS: Ht 175.3 cm; Wt 104.5 kg
[2021-09-10 09:33] LABS: HEMATOCRIT 45 % (35-52); HEMOGLOBIN 13.9 g/dL (11.5-16.0); MEAN CORPUSCULAR HEMOGLOBIN 28 pg (25-34); MEAN CORPUSCULAR HGB CONC 31 g/dL (32-36); MEAN CORPUSCULAR VOLUME 92 fL (80-99); PLATELET COUNT 196 10^3/uL (130-400); WHITE BLOOD COUNT 9.5 10^3/uL (4.3-11.0)
[2021-09-10 09:44] LABS: INR 1.1 (0.8-1.4); PROTHROMBIN TIME PATIENT 14.3 SEC (12.2-14.7)
[2021-09-10] MEDS ORDERED: fentaNYL INJ 100 MCG/2 ML AMP INJ ONE (09:45)
[2021-09-10] MEDS ORDERED: MIDAZOLAM 2 MG/2 ML (VERSED) VIAL INJ ONE (09:45)
[2021-09-10] MEDS ORDERED: NS IV 1000 ML 1,000 ML IV SCH (09:45)
[2021-09-10] MEDS ORDERED: LIDOCAINE 1% INJ 20 ML VIAL INJ ONE (09:45)
[2021-09-10] MEDS ORDERED: LEVO100T7 PO (10:46)
[2021-09-10] MEDS ORDERED: ADVAIR DISKUS (10:46)
[2021-09-10] MEDS ORDERED: LOSA25TA41 PO (10:46)
[2021-09-10] MEDS ORDERED: FLUT1BLS3 IH (10:49)
[2021-09-10] MEDS ORDERED: PAMI30VI8 SQ (10:53)
--- NOTE | 2021-09-10 11:36 | Pre-Op Note & Conscious Sedat ---
Pre-Operative Progress Note H&P Reviewed The H&P was reviewed, patient examined and no changes noted. Date H&P Reviewed: Sep 10, 2021 Time H&P Reviewed: 10:00 Pre-Op Diagnosis: liver mass Conscious Sedation Pre-Proced Time 10:00 ASA Score 2 For ASA 3 and 4: Consider anesthesia and medical clearance. Also, for patients with a history of failed moderate sedation consider anesthesia. Airway Lungs Heart ASA score ASA 1: a normal healthy patient ASA 2: a patient with a mild systemic disease (mid diabetes, controlled hypertension, obesity ASA 3: a patient with a severe systemic disease that limits activity (angina, COPD, prior Myocardial infarction) ASA 4: a patient with an incapacitating disease that is a constant threat to life (CHF, renal failure) ASA 5: a moribund patient not expected to survive 24 hrs. (ruptured aneurysm) ASA 6: a declared brain- patient whose organs are being harvested. For emergent operations, add the letter E after the classification Mallampati Classification Grade 2 Sedation Plan Analgesia, Amnesia, Plan communicated to team members, Discussed options with patient/fam, Discussed risks with patient/fam The patient is an appropriate candidate to undergo the planned procedure, sedation, and anesthesia. The patient immediately re-assessed prior to indication. STANLEY HERZOG MD Sep 10, 2021 11:36
--- NOTE | 2021-09-10 11:52 | Diagnostic Imaging Report ---
INDICATION: Liver mass. Patient presents for CT-guided biopsy. TECHNIQUE: All CT scans use one or more of the following dose optimizing techniques: automated exposure control, MA and/or KvP adjustment based on patient size and exam type or iterative reconstruction. DETAILS OF THE PROCEDURE: The patient was brought to the CT suite and placed on the table in the supine position. Axial imaging through the abdomen was performed to evaluate for an appropriate entry site. The procedure was performed utilizing conscious sedation with Radiology nursing and constant patient monitoring. The patient was given a total of 50 mcg of Fentanyl intravenously and 1 mg of Versed intravenously. The total procedure time was 60 minutes. The upper abdomen was prepped and draped in the usual sterile fashion. A small amount of 1% lidocaine was utilized for local anesthesia. An 18-gauge coaxial Temno needle was advanced into the dominant left lobe liver mass. Four core biopsies were obtained. A blood patch was injected during needle removal. Followup imaging shows no complicating features. The patient tolerated the procedure well and left the Department in stable condition. IMPRESSION: Successful CT-guided left lobe liver mass core biopsy utilizing conscious sedation. Pathology results are currently pending. Dictated by: Dictated on workstation # [id number]
[2021-09-10] MEDS ORDERED: HYDROcodone/APAP 5 MG/325 MG (LORTAB) TAB PO PRN (12:15)
== END 2021-09-10 13:45 | disposition home or self-care (01) ==
LOC: SDC 08:43
PROVIDERS: ATTEND Internal Medicine Hematology & Oncology
DX: C34.90 Malignant neoplasm of unspecified part of unspecified bronchus or lung (principal); C18.1 Malignant neoplasm of appendix; K76.9 Liver disease, unspecified; R59.0 Localized enlarged lymph nodes; Z85.21 Personal history of malignant neoplasm of larynx
CPT/HCPCS: 36415; 77012; 85027; 85610; 85730; 99156

== ENCOUNTER 2021-09-19 11:32 | Outpatient (CLI) | payer MEDICARE ==
[~2021-09-19] VITALS: Ht 175.3 cm; Wt 106.8 kg
[~2021-09-19 11:32] MED LIST changes: +ADVAIR DISKUS; +FLUT1BLS3 IH; +LEVO100T7 PO; +PAMI30VI8 SQ
== END 2021-09-19 14:03 ==
LOC: PREOP 11:32
PROVIDERS: ATTEND Surgery
DX: Z01.818 Encounter for other preprocedural examination (principal)

== ENCOUNTER 2021-09-20 11:00 | Day surgery (SDC) | payer MEDICARE ==
[2021-09-20] VITALS (7 sets, daily range): BP systolic 115–128; BP diastolic 73–85
[~2021-09-20] VITALS: Ht 175.3 cm; Wt 106.8 kg
[2021-09-20] MEDS ORDERED: ceFAZolin 2 GM IV Premixed 50 ML IV ONE (11:15)
[2021-09-20] MEDS ORDERED: LACTATED RINGERS 1,000 ML IV PRN (11:15)
--- NOTE | 2021-09-20 11:28 | Progress Note-Pre Operative ---
Pre-Operative Progress Note H&P Reviewed The H&P was reviewed, patient examined and no changes noted. Date Seen by Provider: Sep 20, 2021 Time Seen by Provider: : Date H&P Reviewed: Sep 20, 2021 Time H&P Reviewed: : Pre-Operative Diagnosis: metastatic small cell cancer LILLY LEE DO Sep 20, 2021 11:28
[2021-09-20] MEDS ORDERED: SCOPOLAMINE 1.5 MG (TRANSDERM-SCOP) PATCH ONE (12:08)
[2021-09-20] MEDS ORDERED: ONDANSETRON 4 MG/2 ML (SDV) Z0FRAN ONE (12:08)
[2021-09-20] MEDS ORDERED: FAMOTIDINE 20MG/2ML IV (PEPCID) ONE (12:09)
[2021-09-20] MEDS ORDERED: ONDANSETRON 4 MG/2 ML (SDV) Z0FRAN IV ONE (12:15)
[2021-09-20] MEDS ORDERED: SCOPOLAMINE 1.5 MG (TRANSDERM-SCOP) PATCH TOP ONE (12:15)
[2021-09-20] MEDS ORDERED: FAMOTIDINE 20MG/2ML IV (PEPCID) IV ONE (12:15)
[2021-09-20] MEDS ORDERED: 0.9% SODIUM CHLORIDE PF INJ 20 ML VIAL ONE (12:35)
[2021-09-20] MEDS ORDERED: LIDOCAINE/EPI 2% 1:100,00 (XYLOCAINE) 20 ML VIAL ONE (12:35)
[2021-09-20] MEDS ORDERED: HEParin (CENTRAL IV FLUSH) 500 UNIT/5 ML SYR ONE (12:35)
[2021-09-20] MEDS ORDERED: MIDAZOLAM 2 MG/2 ML (VERSED) VIAL ONE (13:07)
[2021-09-20] MEDS ORDERED: KETAMINE 50 MG/5 ML SYRINGE ONE (13:22)
[2021-09-20] MEDS ORDERED: KETAMINE HCL 100 MG/ML 5 ML VIAL ONE (13:22)
[2021-09-20] MEDS ORDERED: PROPOFOL INJECTION 50 ML IV ONE (13:30)
--- NOTE | 2021-09-20 13:55 | Discharge Inst-Simple/Standard ---
Discharge Inst-Standard Patient Instructions/Follow Up Plan of Care/Instructions/FU: Darline 2 weeks. Start Eliquis in 3 days. Activity as Tolerated: No Discharge Diet: Regular Diet Other Inst to Patient Follow up Appt: Make appointment for 2 week. Instructions: No lifting greater than 10 pounds. No strenuous activity. May shower in 24 hours, no tub bath or soaking. Use incentive spirometer at home as directed. No Smoking Skin/Wound Care: You have special glue over your incision that will fall off on it's own. Ice pack on 15 min and off 30 min and repeat for first 2 days to reduce swelling and discomfort. Symptoms to Report: Appetite Changes, Extremity Discoloration, Numbness/Tingling, Swelling Increased, Bleeding Excessive, Eyesight Changes, Pain Increased, Urine Color Change, Constipation(Persistent), Fever over 101 degree F, Pain/Pressure in chest, Urinating Difficulty, Cough Up/Vomit Blood, Heart Beat Irreg/Pounding, Pain/Pressure in jaw, Vaginal Bleeding Increase, Cramps in feet or legs, Lightheadedness, Pain/Pressure in shoulder, Diarrhea(Persistent), Memory Changes Suddenly, Questions/Concerns, Weight gain consecutive days, Dizziness/Fainting, Nausea/Vomiting, Shortness of Breath, Weight gain over 2 pounds If questions or concerns contact your physician Or seek help at emergency department. LILLY LEE DO Sep 20, 2021 13:55
--- NOTE | 2021-09-20 14:02 | Anesthesia-General Post-Op ---
MAC Patient Condition Mental Status/LOC: Same as Preop Cardiovascular: Satisfactory Nausea/Vomiting: Absent Respiratory: Satisfactory Pain: Controlled Complications: Absent Post Op Complications Complications None Follow Up Care/Instructions Patient Instructions None needed. Anesthesiology Discharge Order Discharge Order Patient is doing well, no complaints, stable vital signs, no apparent adverse anesthesia problems. PAULINO RING DO Sep 20, 2021 14:02
--- NOTE | 2021-09-20 14:08 | Diagnostic Imaging Report ---
INDICATION: Post Port-A-Cath placement. TECHNIQUE: Single view chest, 2:04 p.m. CORRELATION STUDY: 08/20/2021. FINDINGS: Right IJ Epesfe-r-Skfj catheter is in place; tip projects over the spine, likely over the level of the SVC. Post-sternotomy changes. Heart size is enlarged. Mediastinum is prominent. Vascularity appears slightly increased from prior. Probable small left pleural effusion. No appreciable pneumothorax. IMPRESSION: 1. Right IJ Bifgzb-k-[id number] catheter is in placed with tip over the SVC. Heart size is enlarged. Mediastinum is prominent with a component of mild vascular congestion. Small left pleural effusion. Dictated by: Dictated on workstation # [id number]
--- NOTE | 2021-09-20 14:10 | Diagnostic Imaging Report ---
INDICATION: Catheter placement. TECHNIQUE: Single intraprocedural images right upper chest FINDINGS/ IMPRESSION: The hospital radiology department provided fluoroscopic imaging in support of an interventional procedure. A radiologist was not present. Please reference the operating provider's procedure note. Fluoroscopy Time: 15.3 seconds Dictated by: Dictated on workstation # [id number]
--- NOTE | 2021-09-20 15:52 | Progress Note-Post Operative ---
Post-Operative Progess Note Surgeon (s)/Supervisor Tank Storage (s) Surgeon LILLY LEE DO Supervisor Tank Storage: na Pre-Operative Diagnosis metastatic small cell cancer Post-Operative Diagnosis same Procedure & Operative Findings Date of Procedure 09/20/21 Procedure Performed/Findings PROCEDURE: Right internal jugular port placement using ultrasound guidance. COMPLICATIONS: None. INDICATIONS: The patient is a 61 year old female needing port for metastatic small cell lung cancer. Patient understands the risks and benefits of port placement and wished to proceed with the procedure. Consent was signed on the chart. PROCEDURE: The patient was taken to the operating suite, was prepped and draped in the sterile fashion. A surgical pause was performed. Ultrasound was used to locate the internal jugular vein. Once located anesthetic was infiltrated above it. Using micro-access kit, the right internal vein was accessed. Dark nonpulsatile blood was withdrawn. The wire was inserted. Fluoroscopy assured proper placement. The needle was removed. The micro-access dilator was advanced over the wire and the wire was removed. The regular wire was inserted and fluoroscopy assured proper placement. The wire was then secured. Local anesthetic was used to anesthetize from the neck for tunneling down to the right chest and for pocket creation. A 15 blade scalpel was used to make an incision over the right chest. Cautery was used to dissect down to the pectoral fascia. A pocket was created with blunt dissection. The dilator sheath was then advanced over the wire under fluoroscopy and the dilator and wire were removed. The Gro[place]ong catheter was inserted through the sheath and the sheath was then removed. The Gro[place]ong wire was removed. The catheter was then tunneled to the right chest pocket. Fluoroscopy was used to cut to length and this was then attached to the port which was then placed within the pocket. The port was then accessed without difficulty. It was then flushed with saline and then heparin. The subcutaneous tissues were then reapproximated using 3-0 Vicryl. The areas were then washed and dried. Skin Affix was placed over incision. The insertion point of the neck Skin Affix was placed over the incision. The patient tolerated the procedure well without complication and was taken to recovery room in stable condition. Chest x-ray is pending. Anesthesia Type mac c local Estimated Blood Loss Estimated blood loss (mL): minimal Specimens/Packing Specimens Removed LILLY Sofia DO Sep 20, 2021 15:52
[2021-09-23] MEDS ORDERED: SCOPOLAMINE PATCH REMOVAL TP SCH (12:45)
== END 2021-09-20 15:00 ==
LOC: SDC 11:00
PROVIDERS: ATTEND Surgery
DX: C34.90 Malignant neoplasm of unspecified part of unspecified bronchus or lung (principal); C79.9 Secondary malignant neoplasm of unspecified site; I87.2 Venous insufficiency (chronic) (peripheral); E66.9 Obesity, unspecified; Z68.35 Body mass index [BMI] 35.0-35.9, adult; Z87.891 Personal history of nicotine dependence; Z79.01 Long term (current) use of anticoagulants
CPT/HCPCS: 36561; 71045; 76000; 87081; C1788